=== PATIENT | male | born 1985 | race Caucasian/White ===

== ENCOUNTER 2018-05-28 18:28 | Day surgery (SDC) | payer MEDICARE, MEDICAID, SELFPAY ==
[2018-05-28] VITALS (28 sets, daily range): BP systolic 112–138; BP diastolic 64–100; PULSE 75–115; RESP 18–82; TEMP 36–37.4; O2SAT 88–99
--- NOTE | 2018-05-28 18:39 | DI.RAD_ITS ---
SYMPTOM/DIAGNOSIS: FOREIGN BODY IN THROAT PORTABLE AP CHEST: Heart size and pulmonary vasculature are within normal limits. The lungs are clear. No effusions or pneumothoraces are identified. There is mild elevation of the left hemidiaphragm. The bones appear intact. No radiopaque foreign bodies are identified. IMPRESSION: No acute abnormality. No radiopaque foreign bodies are identified.
[2018-05-28] MEDS: Normal Saline 1,000 ML 1000 ML IV (18:58)
[2018-05-28 19:02] LABS: Abs Immature Grans 0.03 k/cumm (0.0-0.09); HCT 43.3 % (40.0-50.0); HGB 14.7 g/dL (13.5-17.5); Mean Corp. HGB Concentration 33.9 g/dL (32.0-36.0); Mean Corpuscular Hemoglobin 30.8 pg (27.0-33.0); Mean Corpuscular Volume 90.8 fL (80-95); Mean Platelet Volume 10.2 fL (8.0-11.0); Platelet Count 468 x1000/uL (130-400); RBC 4.77 m/cumm (4.50-6.00); RBC Distribution Width 14.9 % (11.8-14.1); White Blood Cell Count 15.97 k/cumm (4.4-10.8)
[2018-05-28 19:13] LABS: ALT 25 U/L (12-78); AST 22 U/L (15-37); Albumin 3.7 g/dL (3.4-5.0); Alkaline Phosphatase 88 U/L (46-116); Anion Gap 9.1 mmol/L (3-11); BUN 12 mg/dL (7-18); Bilirubin, Total 1.2 mg/dL (0.2-1.0); CO2 25.9 mmol/L (21.0-32.0); CREATININE 1.03 mg/dL (0.70-1.30); Calcium 8.9 mg/dL (8.5-10.1); Chloride 102 mmol/L (98-107); Glucose 133 mg/dL (70-100); Potassium 3.4 mmol/L (3.5-5.1); Sodium 137 mmol/L (136-145); Total Protein 7.7 g/dL (6.4-8.2)
[2018-05-28 19:22] LABS: Absolute Neutrophil Count 6.55 k/cumm (1.2-6.7)
[2018-05-28 19:23] LABS: Absolute Eosinophil Count 0.16 k/cumm (0.0-0.7); Absolute Lymphocyte Count 8.14 k/cumm (1.2-3.4); Absolute Monocyte Count 1.12 k/cumm (0.11-0.7); Atypical Lymphocytes % 9; Diff Comment Manual Differential; RBC Morphology Normal
--- NOTE | 2018-05-28 19:40 | DI.VRAD_ITS ---
EXAM: XR Chest, 1 View EXAM DATE/TIME: 05/28/2018 6:40 PM CLINICAL HISTORY: 32 years old, male; Signs and symptoms; Other: Fb in throat TECHNIQUE: XR of the chest, 1 view. Portable exam. COMPARISON: No relevant prior studies available. FINDINGS: Lungs: Mild elevation left hemidiaphragm. Pleural space: Unremarkable. No pleural effusion. No pneumothorax. Heart/Mediastinum: Unremarkable. No cardiomegaly. Bones/joints: Unremarkable. IMPRESSION: No radiopaque foreign body seen in the chest. COMMENT: Preliminary interpretation is based on receipt of 1 image(s). A final report will be issued subsequently. Dictated and Authenticated by: Audrey Correa MD. Ordering:DONELL POZO MD
--- NOTE | 2018-05-28 20:22 | ED.GENADUL_ITS ---
Discharge Plan Disposition Patient Disposition: [facility] INPATIENT Condition: Stable Discharge Details Chief Complaint: ThroatFB Clinical Impression: Esophageal foreign body Reason For Visit: FB in throat Primary Care Provider: José Miguel Flores ED Provider: James Faria Home Meds and New Rx's Prescriptions: No Action sertraline [Zoloft] 50 MG tablet 50 mg PO DAILY Qty: 30 RF: 11 cetirizine [Zyrtec] 10 MG tablet 10 mg PO DAILY Qty: 90 RF: 3 risperidone [Risperdal] 0.25 MG tablet 0.25 mg PO BID Qty: 60 RF: 5 clonazepam 1 MG tablet 1 mg PO bid prn Qty: 60 RF: 5 mupirocin 22 GM ointment 1 applic Topical BID PRN10 Days Qty: 22 RF: 2 epinephrine 0.3 MG/SYR auto-injector 0.3 mg IJ DIRECTED PRN (Reason: Anaphylaxis) Qty: 2 RF: 0 Medical Decision Making This is a pleasant 32-year-old male who presents for evaluation of esophageal foreign body. Patient states that he was eating a sausage 3 hours prior to arrival when he felt it get stuck in his throat. Since then he has been unable to get the sensation to go away, as well as being unable to eat anything and having notable difficulty drinking things. On initial assessment the patient demonstrated notable anxiety, and extremely cloister his mood and disposition. He is difficult to talk with, would not actively answer questions. He has a history of anxiety and a closed off personality. Mother is here though and she is helping with the assessment. Patient denies any complaints aside for the feeling of an esophageal foreign body. We did try to give him water and he had significant coughing and sputtering after this. Was able to control his secretions well. No evidence of oral pharyngeal compromise in the posterior oropharynx, no evidence of tonsillar swelling. We did give the patient glucagon, as well as small amount of soda and he had no improvement of his symptoms or resolution of his symptoms. We did contact Dr. Beltran discussed the case with him, he came and evaluated the patient and agreed with the need for EGD for potential foreign body removal. Chest x-ray shows no evidence of acute foreign body in the lungs. Patient will be sent to the ER for endoscopy. I have extensively reviewed the treatment plan with the patient. I have addressed all patient concerns at this time. I have also discussed the plan with the admitting physician and they agree with the current assessment and plan and have agreed to assume responsibility for the patient. All parties demonstrate verbal understanding and agreement with our assessment and plan at this time. COMPARISON: No relevant prior studies available. FINDINGS: Lungs: Mild elevation left hemidiaphragm. Pleural space: Unremarkable. No pleural effusion. No pneumothorax. Heart/Mediastinum: Unremarkable. No cardiomegaly. Bones/joints: Unremarkable. IMPRESSION: No radiopaque foreign body seen in the chest. HPI General Date/Time Provider Initiated Documentation: 05/28/18 18:38 . HPI Narrative: This is a 32-year-old male with a past medical history of severe anxiety, bipolar with difficulty speaking, who presents today for evaluation of foreign body throat. Patient states that he was eating a sausage roughly 3 hours ago when he felt like it got stuck in the back left side of his throat. Patient has been unable to eat or drink since then. He has tried drinking some earlier however he immediately coughed and spit this up. Patient denies any chest pain, headache, fever or chills. He denies any hematemesis. Patient has no other complaints at this time. At this time he denies any surgeries. He is a poor historian and does not talk much. Related Data Home Medications Medication Instructions Recorded Confirmed epinephrine 0.3 mg IJ DIRECTED PRN #2 kit 04/20/15 06/30/17 sertraline [Zoloft] 50 mg PO DAILY #30 tab-cap 07/13/17 05/28/18 cetirizine [Zyrtec] 10 mg PO DAILY #90 tab-cap 08/11/17 05/28/18 clonazepam 1 mg PO bid prn #60 tab-cap 02/03/18 05/28/18 mupirocin 1 applic TOPICAL BID PRN 10 Days 02/03/18 #22 gm risperidone [Risperdal] 0.25 mg PO BID #60 tab-cap 02/03/18 05/28/18 Previous Rx's Medication Instructions Recorded epinephrine 0.3 mg IJ DIRECTED PRN #2 kit 04/20/15 sertraline [Zoloft] 50 mg PO DAILY #30 tab-cap 07/13/17 cetirizine [Zyrtec] 10 mg PO DAILY #90 tab-cap 08/11/17 clonazepam 1 mg PO bid prn #60 tab-cap 02/03/18 risperidone [Risperdal] 0.25 mg PO BID #60 tab-cap 02/03/18 Allergies Allergy/AdvReac Type Severity Reaction Status Date / Time bacitracin Allergy Unverified 05/28/18 19:26 beer Allergy Severe Anaphylaxsi Uncoded 05/28/18 19:26 s unknown anphalyxis Allergy Severe Anaphylaxsi Uncoded 05/28/18 19:26 s General Stated Complaint: ThroatFB CONSTANCE: 2 Review of Systems Review of Systems All systems reviewed & are unremarkable except as noted in HPI and below PFSH Social History Smoking/Tobacco Use Status: Never Social History Smoking/Tobacco Use Status: Never Exam Narrative Exam Narrative: 1.Const: Well-nourished, Well-developed, appearing stated age 2.Eyes: PERRL, no conjunctival injection, and symmetrical lids. 3.ENT: Atraumatic external nose and ears. Moist MM. Neck: Symmetric, trachea midline, No thyromegaly. No swelling of the neck. Trachea is nontender. Patient has difficulty swallowing, but is able to control secretions at this time 4.CVS: +S1/S2, No murmurs or gallops. Peripheral pulses 2+ and equal in all extremities. Brisk capillary refill in all extremities. 5.RESP: Unlabored respiratory effort. Clear to auscultation bilaterally. No wheezes rales or rhonchi 6.GI: Soft, Nontender/Nondistended, No hepatosplenomegaly. No guarding or rebound. 7.MSK: Normocephalic/Atraumatic, Extremities w/o deformity or ttp No cyanosis or clubbing, Normal movement of all extremities 8.Skin: Warm, Dry. No rashes or lesions. 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 Sensation grossly intact, no focal neurologic deficits. 10.Psych: (AAO) x3. Appropriate mood and affect Course Vital Signs Temperature 36.6 C 05/28/18 19:03 Pulse 95 H 05/28/18 19:03 Respiratory Rate 18 05/28/18 19:03 Blood Pressure 130/77 05/28/18 19:03 Pulse Oximetry 99 05/28/18 19:03 Temperature 36.6 C 05/28/18 19:03 Temperature Source Temporal Artery Scan 05/28/18 19:03 Pulse 108 H 05/28/18 19:29 Respiratory Rate 18 05/28/18 19:03 Respiratory Effort 05/28/18 19:06 Respiratory Pattern Normal 05/28/18 18:30 Blood Pressure 138/65 05/28/18 19:29 Blood Pressure Position Sitting 05/28/18 19:03 Pulse Oximetry 96 05/28/18 19:29 Oxygen Delivery Method Room Air 05/28/18 19:29 Oxygen Flow Rate 0 05/28/18 19:29 Comment 05/28/18 19:29 Lab/Test Results Lab/Test Results: Laboratory Tests Range/Units 05/28/18 05/28/18 05/28/18 18:45 18:45 18:50 WBC (4.4-10.8) k/cumm 15.97 H RBC (4.50-6.00) m/cumm 4.77 Hgb (13.5-17.5) g/dL 14.7 Hct (40.0-50.0) % 43.3 MCV (80-95) fL 90.8 MCH (27.0-33.0) pg 30.8 MCHC (32.0-36.0) g/dL 33.9 RDW (11.8-14.1) % 14.9 H Plt Count (130-400) x1000/uL 468 H MPV (8.0-11.0) fL 10.2 Immature Gran % 0.0 Neutrophils % 41.0 Lymphocytes % 42.0 Monocytes % 7.0 Eosinophils % 1.0 Basophils % 0.0 Absolute Neutrophils (1.2-6.7) k/cumm 6.55 Band Neutrophils % 0.0 Absolute Lymphocytes (1.2-3.4) k/cumm 8.14 H Absolute Monocytes (0.11-0.7) k/cumm 1.12 H Absolute Eosinophils (0.0-0.7) k/cumm 0.16 Absolute Basophils (0.0-0.2) k/cumm 0.00 Differential Comment Manual differential Atypical Lymphocytes 9 RBC Morphology Normal Sodium (136-145) mmol/L 137 Potassium (3.5-5.1) mmol/L 3.4 L Chloride (98-107) mmol/L 102 Carbon Dioxide (21.0-32.0) mmol/L 25.9 Anion Gap (3-11) mmol/L 9.1 BUN (7-18) mg/dL 12 Creatinine (0.70-1.30) mg/dL 1.03 Estimated GFR/1.73 m2 (mL/min/1.73m2) >= 60.00 Glucose (70-100) mg/dL 133 H Calcium (8.5-10.1) mg/dL 8.9 Total Bilirubin (0.2-1.0) mg/dL 1.2 H AST (15-37) U/L 22 ALT (12-78) U/L 25 Alkaline Phosphatase (46-116) U/L 88 Total Protein (6.4-8.2) g/dL 7.7 Albumin (3.4-5.0) g/dL 3.7 Patient ABO/Rh O Positive Antibody Screen Negative
--- NOTE | 2018-05-28 20:29 | NUR.NOTE ---
pt has been speaking with Dr Beltran and his grandmother , he signed consent to have the FB removed from his throat in the OR by Dr Beltran Nursing Note:
--- NOTE | 2018-05-28 21:11 | W.PM.HP.N ---
Date of service: 05/28/18 Time of Service: 21:12 Assessment and Plan (1) Esophageal foreign body: Current visit: No Status: Acute Probable esophageal foreign body. Recommended to patient EGD with possible foreign body removal. I reviewed the procedure with Golden and his grandmother. All his questions were answered to his satisfaction. Consent was obtained to proceed with EGD. History of Present Illness Chief Complaint: Esophageal Foreign body Narrative: This is a pleasant 32-year-old male who presents for evaluation of esophageal foreign body. Patient states that he was eating a sausage 3 hours prior to arrival when he felt it get stuck in his throat. Since then he has been unable to get the sensation to go away, as well as being unable to eat anything and having notable difficulty drinking things. On initial assessment the patient demonstrated notable anxiety, and extremely cloister his mood and disposition. He is difficult to talk with, would not actively answer questions. He has a history of anxiety and a closed off personality. Mother is here though and she is helping with the assessment. Patient denies any complaints aside for the feeling of an esophageal foreign body. We did try to give him water and he had significant coughing and sputtering after this. Was able to control his secretions well. No evidence of oral pharyngeal compromise in the posterior oropharynx, no evidence of tonsillar swelling. We did give the patient glucagon, as well as small amount of soda and he had no improvement of his symptoms or resolution of his symptoms. Review of Systems Constitutional Reports system reviewed and no additional complaints, except as docu, Denies body ache(s), Denies chills, Denies malaise and Denies night sweats ENT Reports dysphagia and Reports odynophagia Gastrointestinal Reports bloating, Reports dysphagia, Reports nausea, Reports odynophagia and Reports vomiting PFSH Anxiety (Chronic) Bipolar disorder (Chronic) Medical History Anxiety (Chronic) Bipolar disorder (Chronic) Social History Smoking/Tobacco Use Status: Never alcohol intake: never substance use type: does not use Social History Smoking/Tobacco Use Status: Never alcohol intake: never substance use type: does not use Meds Home Medications Medication Instructions Recorded Confirmed Type epinephrine 0.3 mg IJ DIRECTED PRN #2 kit 04/20/15 06/30/17 Rx sertraline [Zoloft] 50 mg PO DAILY #30 tab-cap 07/13/17 05/28/18 Rx cetirizine [Zyrtec] 10 mg PO DAILY #90 tab-cap 08/11/17 05/28/18 Rx clonazepam 1 mg PO bid prn #60 tab-cap 02/03/18 05/28/18 Rx mupirocin 1 applic TOPICAL BID PRN 10 Days 02/03/18 History #22 gm risperidone [Risperdal] 0.25 mg PO BID #60 tab-cap 02/03/18 05/28/18 Rx Allergies Allergy/AdvReac Type Severity Reaction Status Date / Time bacitracin Allergy Unverified 05/28/18 19:26 beer Allergy Severe Anaphylaxsi Uncoded 05/28/18 19:26 s unknown anphalyxis Allergy Severe Anaphylaxsi Uncoded 05/28/18 19:26 s Exam Const General: healthy appearing and well developed Nutritional Appearance: well nourished and overweight Orientation: alert, awake and oriented x3 Limitations: behavioral limitations Chest Chest: normal inspection of the chest Resp Effort & Inspection: normal respiratory effort and able to speak in complete sentences Auscultation: clear to auscultation bilaterally Cardio Rate: regular rate Rhythm: regular rhythm GI Inspection: normal to inspection and non-distended Palpation: no guarding and nontender Skin General skin exam: no rashes or lesions noted and turgor normal Neuro General: moves all extremities, no focal motor deficits and CN's II-XI intact bilaterally Results Imaging Chest x-ray: image reviewed Imaging Studies: EXAM: XR Chest, 1 View EXAM DATE/TIME: 05/28/2018 6:40 PM CLINICAL HISTORY: 32 years old, male; Signs and symptoms; Other: Fb in throat TECHNIQUE: XR of the chest, 1 view. Portable exam. COMPARISON: No relevant prior studies available. FINDINGS: Lungs: Mild elevation left hemidiaphragm. Pleural space: Unremarkable. No pleural effusion. No pneumothorax. Heart/Mediastinum: Unremarkable. No cardiomegaly. Bones/joints: Unremarkable. IMPRESSION: No radiopaque foreign body seen in the chest. Labs : 05/28/18 18:45 05/28/18 18:45 Laboratory Results - last 24 hr 05/28/18 05/28/18 05/28/18 18:45 18:45 18:50 WBC 15.97 H RBC 4.77 Hgb 14.7 Hct 43.3 MCV 90.8 MCH 30.8 MCHC 33.9 RDW 14.9 H Plt Count 468 H MPV 10.2 Immature Gran % 0.0 Neutrophils % 41.0 Lymphocytes % 42.0 Monocytes % 7.0 Eosinophils % 1.0 Basophils % 0.0 Absolute Neutrophils 6.55 Band Neutrophils 0.0 Absolute Lymphocytes 8.14 H Absolute Monocytes 1.12 H Absolute Eosinophils 0.16 Absolute Basophils 0.00 Differential Comment Manual differential Atypical Lymphocytes 9 RBC Morphology Normal Sodium 137 Potassium 3.4 L Chloride 102 Carbon Dioxide 25.9 Anion Gap 9.1 BUN 12 Creatinine 1.03 Estimated GFR/1.73 m2 >= 60.00 Glucose 133 H Calcium 8.9 Total Bilirubin 1.2 H AST 22 ALT 25 Alkaline Phosphatase 88 Total Protein 7.7 Albumin 3.7 Patient ABO/Rh O Positive Antibody Screen Negative Last Vital Signs Temp 36 C L 05/28/18 21:06 Pulse 92 H 05/28/18 21:06 Resp 32 H 05/28/18 21:06 BP 112/80 05/28/18 21:06 Pulse Ox 94 L 05/28/18 21:06
[2018-05-28] MEDS: Lactated Ringers 1,000 ML 75 ML IV (21:35)
--- NOTE | 2018-05-28 22:30 | W.PM.ENDDOP ---
Date of service: 05/28/18 Time of Service: 22:30 Endoscopy Report DATE OF PROCEDURE: 05/28/18 PRE-OP DIAGNOSIS: Esophageal Foreign Body POST-OP DIAGNOSIS: other (Esophagitis) PROCEDURE: Esophagogastroduodenoscopy SURGEON: Rob Hernandez ANESTHESIA: GETA (Stephen Joe, ROLO; ASA 3E Mallampati class III) ESTIMATED BLOOD LOSS: 0 PATHOLOGY: none sent COMPLICATIONS: None DISPOSITION: floor (For afterhour discharge) INDICATIONS: This is a pleasant 32-year-old male who presents for evaluation of esophageal foreign body. Patient states that he was eating a sausage 3 hours prior to arrival when he felt it get stuck in his throat. Since then he has been unable to get the sensation to go away, as well as being unable to eat anything and having notable difficulty drinking things. On initial assessment the patient demonstrated notable anxiety, and extremely cloister his mood and disposition. He is difficult to talk with, would not actively answer questions. He has a history of anxiety and a closed off personality. Mother is here though and she is helping with the assessment. Patient denies any complaints aside for the feeling of an esophageal foreign body. We did try to give him water and he had significant coughing and sputtering after this. Was able to control his secretions well. No evidence of oral pharyngeal compromise in the posterior oropharynx, no evidence of tonsillar swelling. We did give the patient glucagon, as well as small amount of soda and he had no improvement of his symptoms or resolution of his symptoms. Recommended EGD to evaluate for esophageal foreign body, and retrieve the foreign body if it is there. I reviewed the procedure with Golden and his grandmother. All of their questions are answered to their satisfaction. No promises were given or guarantees made. Consent was obtained to proceed with EGD possible foreign body retrieval. FINDINGS: On examining the upper gastrointestinal tract from the oropharynx to the third portion of the duodenum, no evidence of an impacted esophageal foreign body was found there was a food bolus found in the fundus of the stomach and the duodenum. The fundal food bolus may have recently passed quickly after induction of anesthesia, though this is only speculative. He was noted to have significant esophagitis at the GE junction with contact friability. I did not take biopsies of the time due to the inflammatory changes from the foreign body, but this is clearly been a ongoing process. Given his history of anxiety reflux certainly be possible. PROCEDURE DESCRIPTION: The patient was brought to the procedure room. Monitoring for telemetry, end-tidal CO2, O2 saturation, blood pressure were applied. An appropriate timeout was taken reviewing the patient's identification, allergies, medications,and procedure. A bite was placed, and sedation was titrated for effect by the CRAFT COORDINATOR. An Olympus variable stiffness endoscope was advanced from the oropharynx to the third portion of the duodenum without difficulty. I was unable to enter the duodenum due to a food bolus. The scope was then withdrawn in circumferential manner from the pylorus back to the oropharynx. In performing withdrawal of the scope, the pylorus appeared grossly normal. The scope was withdrawn into the gastric antrum and retroflexed to examine the entire stomach, and no abnormalities of the gastric antrum, anterior, posterior surfaces of the stomach, lesser curvature, greater curvature, and fundus were noted. There was a food bolus noted in the gastric fundus which may have passed into the stomach after induction of anesthesia though there is no way to tell this definitively. The scope was then withdrawn to the GE junction. There is a large amount of inflammatory changes at the GE junction with contact friability of the tissue present. This appears to been a long-standing process, and most likely from reflux. I withdrew the scope through the remainder of the esophagus all which appear grossly normal. Scope was then withdrawn terminating the upper endoscopy.
--- NOTE | 2018-05-28 22:40 | ENDO_ITS ---
Date of service: 05/28/18 Time of Service: 22:30 Endoscopy Report DATE OF PROCEDURE: 05/28/18 PRE-OP DIAGNOSIS: Esophageal Foreign Body POST-OP DIAGNOSIS: other (Esophagitis) PROCEDURE: Esophagogastroduodenoscopy SURGEON: Rob Hernandez ANESTHESIA: GETA (Stephen Joe, ROLO; ASA 3E Mallampati class III) ESTIMATED BLOOD LOSS: 0 PATHOLOGY: none sent COMPLICATIONS: None DISPOSITION: floor (For afterhour discharge) INDICATIONS: This is a pleasant 32-year-old male who presents for evaluation of esophageal foreign body. Patient states that he was eating a sausage 3 hours prior to arrival when he felt it get stuck in his throat. Since then he has been unable to get the sensation to go away, as well as being unable to eat anything and having notable difficulty drinking things. On initial assessment the patient demonstrated notable anxiety, and extremely cloister his mood and disposition. He is difficult to talk with, would not actively answer questions. He has a history of anxiety and a closed off personality. Mother is here though and she is helping with the assessment. Patient denies any complaints aside for the feeling of an esophageal foreign body. We did try to give him water and he had significant coughing and sputtering after this. Was able to control his secretions well. No evidence of oral pharyngeal compromise in the posterior oropharynx, no evidence of tonsillar swelling. We did give the patient glucagon, as well as small amount of soda and he had no improvement of his symptoms or resolution of his symptoms. Recommended EGD to evaluate for esophageal foreign body, and retrieve the foreign body if it is there. I reviewed the procedure with Golden and his grandmother. All of their questions are answered to their satisfaction. No promises were given or guarantees made. Consent was obtained to proceed with EGD possible foreign body retrieval. FINDINGS: On examining the upper gastrointestinal tract from the oropharynx to the third portion of the duodenum, no evidence of an impacted esophageal foreign body was found there was a food bolus found in the fundus of the stomach and the duodenum. The fundal food bolus may have recently passed quickly after induction of anesthesia, though this is only speculative. He was noted to have significant esophagitis at the GE junction with contact friability. I did not take biopsies of the time due to the inflammatory changes from the foreign body , but this is clearly been a ongoing process. Given his history of anxiety reflux certainly be possible. PROCEDURE DESCRIPTION: The patient was brought to the procedure room. Monitoring for telemetry, end- tidal CO2, O2 saturation, blood pressure were applied. An appropriate timeout was taken reviewing the patient's identification, allergies, medications,and procedure. A bite was placed, and sedation was titrated for effect by the SAMPLE STITCHER. An Olympus variable stiffness endoscope was advanced from the oropharynx to the third portion of the duodenum without difficulty. I was unable to enter the duodenum due to a food bolus. The scope was then withdrawn in circumferential manner from the pylorus back to the oropharynx. In performing withdrawal of the scope, the pylorus appeared grossly normal. The scope was withdrawn into the gastric antrum and retroflexed to examine the entire stomach, and no abnormalities of the gastric antrum, anterior, posterior surfaces of the stomach , lesser curvature, greater curvature, and fundus were noted. There was a food bolus noted in the gastric fundus which may have passed into the stomach after induction of anesthesia though there is no way to tell this definitively. The scope was then withdrawn to the GE junction. There is a large amount of inflammatory changes at the GE junction with contact friability of the tissue present. This appears to been a long-standing process, and most likely from reflux. I withdrew the scope through the remainder of the esophagus all which appear grossly normal. Scope was then withdrawn terminating the upper endoscopy.
--- NOTE | 2018-05-28 22:46 | DSE_ITS ---
Date of service: 05/28/18 Time of Service: 22:40 DS: Diagnosis Discharge Diagnosis (1) Esophageal foreign body: Status: Resolved Asessment and Plan: EGD performed: Endoscopy Report DATE OF PROCEDURE: 05/28/18 PRE-OP DIAGNOSIS: Esophageal Foreign Body POST-OP DIAGNOSIS: other (Esophagitis) PROCEDURE: Esophagogastroduodenoscopy SURGEON: Rob Hernandez ANESTHESIA: GETA (Stephen Joe, CRATING AND MOVING ESTIMATOR; ASA 3E Mallampati class III) ESTIMATED BLOOD LOSS: 0 PATHOLOGY: none sent COMPLICATIONS: None DISPOSITION: floor (For afterhour discharge) INDICATIONS: This is a pleasant 32-year-old male who presents for evaluation of esophageal foreign body. Patient states that he was eating a sausage 3 hours prior to arrival when he felt it get stuck in his throat. Since then he has been unable to get the sensation to go away, as well as being unable to eat anything and having notable difficulty drinking things. On initial assessment the patient demonstrated notable anxiety, and extremely cloister his mood and disposition. He is difficult to talk with, would not actively answer questions. He has a history of anxiety and a closed off personality. Mother is here though and she is helping with the assessment. Patient denies any complaints aside for the feeling of an esophageal foreign body. We did try to give him water and he had significant coughing and sputtering after this. Was able to control his secretions well. No evidence of oral pharyngeal compromise in the posterior oropharynx, no evidence of tonsillar swelling. We did give the patient glucagon, as well as small amount of soda and he had no improvement of his symptoms or resolution of his symptoms. Recommended EGD to evaluate for esophageal foreign body, and retrieve the foreign body if it is there. I reviewed the procedure with Golden and his grandmother. All of their questions are answered to their satisfaction. No promises were given or guarantees made. Consent was obtained to proceed with EGD possible foreign body retrieval. FINDINGS: On examining the upper gastrointestinal tract from the oropharynx to the third portion of the duodenum, no evidence of an impacted esophageal foreign body was found there was a food bolus found in the fundus of the stomach and the duodenum. The fundal food bolus may have recently passed quickly after induction of anesthesia, though this is only speculative. He was noted to have significant esophagitis at the GE junction with contact friability. I did not take biopsies of the time due to the inflammatory changes from the foreign body , but this is clearly been a ongoing process. Given his history of anxiety reflux certainly be possible. PROCEDURE DESCRIPTION: The patient was brought to the procedure room. Monitoring for telemetry, end- tidal CO2, O2 saturation, blood pressure were applied. An appropriate timeout was taken reviewing the patient's identification, allergies, medications,and procedure. A bite was placed, and sedation was titrated for effect by the CRATING AND MOVING ESTIMATOR. An Olympus variable stiffness endoscope was advanced from the oropharynx to the third portion of the duodenum without difficulty. I was unable to enter the duodenum due to a food bolus. The scope was then withdrawn in circumferential manner from the pylorus back to the oropharynx. In performing withdrawal of the scope, the pylorus appeared grossly normal. The scope was withdrawn into the gastric antrum and retroflexed to examine the entire stomach, and no abnormalities of the gastric antrum, anterior, posterior surfaces of the stomach , lesser curvature, greater curvature, and fundus were noted. There was a food bolus noted in the gastric fundus which may have passed into the stomach after induction of anesthesia though there is no way to tell this definitively. The scope was then withdrawn to the GE junction. There is a large amount of inflammatory changes at the GE junction with contact friability of the tissue present. This appears to been a long-standing process, and most likely from reflux. I withdrew the scope through the remainder of the esophagus all which appear grossly normal. Scope was then withdrawn terminating the upper endoscopy. (2) Esophagitis determined by endoscopy: Status: Acute Asessment and Plan: Started on omeprazole, repeat EGD in 8-12 weeks to reassess esophagitis. Discharge Plan Disposition Patient Disposition: HOME Condition: Stable Discharge Details Reason For Visit: FB in throat Attending Provider: Rob Hernandez Primary Care Provider: José Miguel Flores Hospital Course Hospital Course: Procedures: Esophagogastroduodenoscopy HPI: This is a pleasant 32-year-old male who presents for evaluation of esophageal foreign body. Patient states that he was eating a sausage 3 hours prior to arrival when he felt it get stuck in his throat. Since then he has been unable to get the sensation to go away, as well as being unable to eat anything and having notable difficulty drinking things. On initial assessment the patient demonstrated notable anxiety, and extremely cloister his mood and disposition. He is difficult to talk with, would not actively answer questions. He has a history of anxiety and a closed off personality. Mother is here though and she is helping with the assessment. Patient denies any complaints aside for the feeling of an esophageal foreign body. We did try to give him water and he had significant coughing and sputtering after this. Was able to control his secretions well. No evidence of oral pharyngeal compromise in the posterior oropharynx, no evidence of tonsillar swelling. We did give the patient glucagon, as well as small amount of soda and he had no improvement of his symptoms or resolution of his symptoms. Hospital Course: Patient underwent EGD without complications, please see separate procedure note for full details. He was transferred to the floor for postprocedure discharge. He was afebrile tolerating clear liquids, and ambulating at baseline. Will recommend he continue omeprazole daily, make sure he chews his food adequately. He should stay on a soft diet for several days until his throat starts to feel better. Home Meds and New Rx's Prescriptions: New omeprazole 40 mg capsule,delayed release(DR/EC) 40 mg PO DAILY Qty: 30 RF: 6 Continue sertraline [Zoloft] 50 MG tablet 50 mg PO DAILY Qty: 30 RF: 11 cetirizine [Zyrtec] 10 MG tablet 10 mg PO DAILY Qty: 90 RF: 3 risperidone [Risperdal] 0.25 MG tablet 0.25 mg PO BID Qty: 60 RF: 5 clonazepam 1 MG tablet 1 mg PO bid prn Qty: 60 RF: 5 mupirocin 22 GM ointment 1 applic Topical BID PRN10 Days Qty: 22 RF: 2 epinephrine 0.3 MG/SYR auto-injector 0.3 mg IJ DIRECTED PRN (Reason: Anaphylaxis) Qty: 2 RF: 0 Discharge Instructions Instructions: Soft Diet (GEN), Upper Endoscopy (DC), Esophagitis (GEN) Stand Alone Forms: Nursing Discharge Form Referrals: José Miguel Flores [Primary Care Provider] - (Follow in a week for post ER visit, call to make an appointment) Activity:: Activity as Tolerated Remove Dressings/Wound Care:: 24 hours Shower/Bathe:: 24 hours Activity:: Activity as Tolerated Equipment/Supplies:: No Equipment Needed Diet:: soft diet Discharge Orders Discharge Orders: Discharge Order (Routine); Ordered 05/28/18 Ordered By: Rob Hernandez DS: Summary Status at Discharge Cognitive/behavioral status at discharge: Severe Anxiety at baseline Functional status at discharge: independent ambulation Overall status at discharge: patient is back to baseline Time Spent with Patient Less than 30 minutes Exam Chest Chest: normal inspection of the chest Resp Effort & Inspection: normal respiratory effort and able to speak in complete sentences Auscultation: clear to auscultation bilaterally Cardio Jugular venous pressure: no JVD Rate: tachycardic Rhythm: regular rhythm Heart Sounds: S1 normal GI Inspection: normal to inspection Palpation: soft, no guarding and nontender DS: Data Vitals/I&O Vitals and I&O: Vital Signs Temperature 36.7 C 05/28/18 22:02 Temperature Source Temporal Artery Scan 05/28/18 21:06 Pulse 111 H 05/28/18 22:20 Pulse 98 H 05/28/18 20:20 Respiratory Rate 80 H 05/28/18 22:20 Respiratory Effort 05/28/18 19:06 Respiratory Pattern Normal 05/28/18 18:30 Blood Pressure 113/100 H 05/28/18 22:20 Blood Pressure Mean 79 05/28/18 20:16 Blood Pressure Position Sitting 05/28/18 19:03 Pulse Oximetry 94 L 05/28/18 22:20 Oxygen Delivery Method Room Air 05/28/18 22:20 Oxygen Flow Rate 0 05/28/18 21:06 Comment 05/28/18 21:06 Intake & Output 05/28/18 05/28/18 05/29/18 06:59 18:59 06:59 Intake Total 1000 / 1000 Balance 1000 / 1000 Weight 136 kg Intake: IV 1000 / 1000 Other: Emesis Description None Labs on day of discharge: Labs from last 24 hours 05/28/18 05/28/18 05/28/18 18:50 18:45 18:45 WBC 15.97 H RBC 4.77 Hgb 14.7 Hct 43.3 MCV 90.8 MCH 30.8 MCHC 33.9 RDW 14.9 H Plt Count 468 H MPV 10.2 Immature Gran % 0.0 Neutrophils % 41.0 Lymphocytes % 42.0 Monocytes % 7.0 Eosinophils % 1.0 Basophils % 0.0 Absolute Neutrophils 6.55 Band Neutrophils 0.0 Absolute Lymphocytes 8.14 H Absolute Monocytes 1.12 H Absolute Eosinophils 0.16 Absolute Basophils 0.00 Differential Comment Manual differential Atypical Lymphocytes 9 RBC Morphology Normal Sodium 137 Potassium 3.4 L Chloride 102 Carbon Dioxide 25.9 Anion Gap 9.1 BUN 12 Creatinine 1.03 Estimated GFR/1.73 m2 >= 60.00 Glucose 133 H Calcium 8.9 Total Bilirubin 1.2 H AST 22 ALT 25 Alkaline Phosphatase 88 Total Protein 7.7 Albumin 3.7 Patient ABO/Rh O Positive Antibody Screen Negative Imaging Chest x-ray: Lab and Radiology Reports: EXAM: XR Chest, 1 View EXAM DATE/TIME: 05/28/2018 6:40 PM CLINICAL HISTORY: 32 years old, male; Signs and symptoms; Other: Fb in throat TECHNIQUE: XR of the chest, 1 view. Portable exam. COMPARISON: No relevant prior studies available. FINDINGS: Lungs: Mild elevation left hemidiaphragm. Pleural space: Unremarkable. No pleural effusion. No pneumothorax. Heart/Mediastinum: Unremarkable. No cardiomegaly. Bones/joints: Unremarkable. IMPRESSION: No radiopaque foreign body seen in the ches [facility] Anxiety (Chronic) Bipolar disorder (Chronic) Medical History Anxiety (Chronic) Bipolar disorder (Chronic) Social History Smoking/Tobacco Use Status: Never alcohol intake: never substance use type: does not use Social History Smoking/Tobacco Use Status: Never alcohol intake: never substance use type: does not use
[2018-05-28] MEDS: Pantoprazole 40 MG VIAL IVP (23:06)
[2018-05-28] MEDS: Normal Saline Flush 10 ML SYR (23:07)
[2018-05-28] MEDS: ACETAMINOPHEN 1,000 MG/100 ML BTL 400 MG IVPB (23:10)
--- NOTE | 2018-05-29 00:17 | NUR.NOTE ---
Nursing Note: Patient arrived to the floor via stretcher at 2242 on 05/28/18 and admitted to room 208 to recover from upper endoscopy and be discharged to home. Per Stephen Olson RN anesthesia and Tasneem Villatoro RN this patient has high anxiety and that it was OK for him to have a respiratory rate in the 80s. Stephen further stated that his respiratory rate would return to normal once he was discharged and the patient was able to calm down. Patient stated that his throat hurt, an order for IV Tylenol was obtained and given. The patient stated that he felt some relief. Patient was able to drink water and void. Respiratory rate decreased to 46 prior to being discharged
== END 2018-05-28 23:51 | disposition home or self-care (01) ==
LOC: ER 21:35 → SUR 22:24 → ER 06-12 11:25 → MS 06-12 11:25
PROVIDERS: Emergency Provider Student in an Organized Health Care Education/Training Program; PCP Family Medicine; Visit Provider Surgery
PROC: 0DC58ZZ Extirpation of Matter from Esophagus, Via Natural or Artificial Opening Endoscopic (ICD-10-PCS; CPT 43215; principal; 2018-05-28 20:55)
DX: T18.128A Food in esophagus causing other injury, initial encounter (principal); K20.9 Esophagitis, unspecified; F41.9 Anxiety disorder, unspecified
CPT/HCPCS: 43235; 36415; 80053; 86850; 86900; 86901; 96361; 96374; 99217; 99223; 99283; 99285; 71045; 85025; 99284; J0131; J1610; J2250

== ENCOUNTER 2018-10-01 13:15 | Emergency (ER) | payer MEDICARE, MEDICAID, SELFPAY ==
[2018-10-01] VITALS (15 sets, daily range): BP systolic 84–132; BP diastolic 29–79; PULSE 79–102; RESP 19–60; TEMP 36.6; O2SAT 91–99
--- NOTE | 2018-10-01 13:24 | NUR.NOTE ---
pt presents to ED stating my chest hurts my chest hurts my chest hursts pt visibly shaking pt refuses to remove shirt. refuses ECG and will not remove arms from chest
--- NOTE | 2018-10-01 13:39 | ED.GENADUL_ITS ---
Discharge Plan Disposition Patient Disposition: HOME Condition: Improving Discharge Details Chief Complaint: Chest Pain Clinical Impression: Acute bronchitis Primary Care Provider: José Miguel Flores ED Provider: Zbigniew Castaneda Home Meds and New Rx's Prescriptions: New benzonatate [Tessalon Perles] 100 mg capsule 100 mg PO TID PRN (Reason: cough) Qty: 10 RF: 0 azithromycin 250 mg tablet See Rx Instructions .ROUTE .COMPLEX Qty: 6 RF: 0 Continued mupirocin 22 GM ointment 1 applic Topical BID PRN10 Days Qty: 22 RF: 2 sertraline [Zoloft] 50 mg tablet 50 mg PO DAILY Qty: 30 RF: 11 cetirizine [Zyrtec] 10 mg tablet 10 mg PO DAILY Qty: 90 RF: 3 clonazepam 1 mg tablet 1 mg PO BID PRN (Reason: anxiety) Qty: 60 RF: 5 epinephrine 0.3 MG/SYR auto-injector 0.3 mg IJ DIRECTED PRN (Reason: Anaphylaxis) Qty: 2 RF: 0 omeprazole 40 mg capsule,delayed release(DR/EC) 40 mg PO DAILY Qty: 30 RF: 6 omeprazole 40 mg capsule,delayed release(DR/EC) 40 mg PO DAILY Qty: 30 RF: 6 Discharge Instructions Instructions: Acute Bronchitis (ED) Additional Instructions: Please take antibiotics as prescribed. May use the prescribed Tessalon as needed for cough. Continue your regular medications. Your potassium level was slightly low for which you were given supplementation and you may liberalize potassium in the diet through increase food such as bananas, strawberries, tree nuts such as cashews. Return for any acute concern. Home to rest. Please follow-up with Dr. Bourgeois for recheck if not improving in 5 days time Medical Decision Making 32-year-old male with a history of severe anxiety presents with 3 days of constant substernal chest discomfort. It is associated with a cough and sputum production. He also has a history of GERD, intermittently compliant with his omeprazole. He is afebrile, well-appearing, but severely anxious. He is placed on cardiac rehab nurse and screening EKG is obtained. INitially refractive to triage efforts. He is offered anxiolytic which he accepts with some improvement. BLood pressure subsequently rechecked at 130/60. Patient's father with whom he lives presents to the emergency department, states that this is normal behavior for Mr. Pichardo and does have significant phobias and is on disability. Referred for laboratory testing, EKG, and chest x-ray Labs reveal an elevated white blood cell of 12. Mild hypokalemia of 3.0. This was supplemented in the emergency department. Chest Xray is unremarkable for acute process. Patient stable and improved. We will place on a course of antibiotics to cover atypical infections. He is given antitussive. He will follow-up with primary care for recheck. Lab Data Lab results reviewed: Yes I reviewed the patient's lab results. Laboratory Results - last 24 hr 10/01/18 10/01/18 13:50 13:50 WBC 12.40 H RBC 4.58 Hgb 14.0 Hct 41.0 MCV 89.5 MCH 30.6 MCHC 34.1 RDW 14.9 H Plt Count 435 H MPV 9.6 Immature Gran % 0.0 Neutrophils % 39.0 Lymphocytes % 40.0 Atypical Lymphs % 9 Monocytes % 11.0 Eosinophils % 1.0 Basophils % 0.0 Absolute Neutrophils 4.84 Absolute Lymphocytes 6.08 H Absolute Monocytes 1.36 H Absolute Eosinophils 0.12 Absolute Basophils 0.00 Differential Comment Manual differential RBC Morphology Normal Sodium 136 Potassium 3.0 L Chloride 99 Carbon Dioxide 26.6 Anion Gap 10.4 BUN 13 Creatinine 1.05 Estimated GFR/1.73 m2 >= 60.00 Glucose 105 H Calcium 9.0 Magnesium 1.7 L Total Bilirubin 1.5 H AST 23 ALT 22 Alkaline Phosphatase 73 Troponin I < 0.02 Total Protein 7.5 Albumin 3.7 ECG Data Attestation: I personally reviewed and interpreted this ECG (s) as follows: Interpretation: Normal sinus rhythm with a rate of 94, the QRS is narrow, there is no ST segment elevation present HPI General Mode of arrival: ambulatory . Date/Time Provider Initiated Documentation: 10/01/18 13:17 . Limitations to Documentation: no limitations . Information obtained by: patient . History of Present Illness 32 year old M presents to the emergency department with the chief complaint of Central chest pain for 3 days time. Extremely anxious, described as mild, Quality is described as dull, and is localized to the chest. Patient reports no radiation. Patient started experiencing this day(s) and it has been constant. No relieving factors improve symptom(s), No exacerbating factors reported . Patient notes no other symptoms. and other (Severe anxiety); denies chest pain and shortness of breath. Patient did receive the following treatments prior to arrival, none Related Data Home Medications Medication Instructions Recorded Confirmed epinephrine 0.3 mg IJ DIRECTED PRN #2 kit 04/20/15 06/30/17 mupirocin 1 applic TOPICAL BID PRN 10 Days 02/03/18 #22 gm omeprazole 40 mg PO DAILY #30 cap 05/28/18 omeprazole 40 mg PO DAILY #30 cap 05/29/18 sertraline 50 mg tablet 50 mg PO DAILY #30 tab-cap 07/15/18 cetirizine 10 mg tablet 10 mg PO DAILY #90 tab-cap 08/17/18 clonazepam 1 mg tablet 1 mg PO BID PRN #60 tab 08/17/18 azithromycin See Rx Instructions .ROUTE 10/01/18 .COMPLEX #6 tab benzonatate [Tessalon Perles] 100 mg PO TID PRN #10 cap 10/01/18 Previous Rx's Medication Instructions Recorded epinephrine 0.3 mg IJ DIRECTED PRN #2 kit 04/20/15 omeprazole 40 mg PO DAILY #30 cap 05/28/18 omeprazole 40 mg PO DAILY #30 cap 05/29/18 sertraline 50 mg tablet 50 mg PO DAILY #30 tab-cap 07/15/18 cetirizine 10 mg tablet 10 mg PO DAILY #90 tab-cap 08/17/18 clonazepam 1 mg tablet 1 mg PO BID PRN #60 tab 08/17/18 azithromycin See Rx Instructions .ROUTE 10/01/18 .COMPLEX #6 tab benzonatate [Tessalon Perles] 100 mg PO TID PRN #10 cap 10/01/18 Allergies Allergy/AdvReac Type Severity Reaction Status Date / Time bacitracin Allergy Unverified 05/28/18 19:26 beer Allergy Severe Anaphylaxsi Uncoded 05/28/18 19:26 s unknown anphalyxis Allergy Severe Anaphylaxsi Uncoded 05/28/18 19:26 s General Stated Complaint: Chest Pain CONSTANCE: 3 Review of Systems Review of Systems No fever. No shortness of breath. No leg pain or swelling 6 systems reviewed and other was negative [facility] Medical History Anxiety (Chronic) Bipolar disorder (Chronic) Surgical History H/O hernia repair (Chronic) History of splenectomy (Resolved) Social History Smoking/Tobacco Use Status: Never Alcohol Intake: never Drug use: Never Substance use type: does not use Do you feel safe at home: Yes Do you feel safe in your relationship?: Yes Exam Narrative Exam Narrative: GEN: awake, alert, oriented 3. Pleasant, well groomed, a. HEAD: Normocephalic, atraumatic ENT: Mucous membranes moist, oropharynx unremarkable, External ear exam unremarkable EYES: PERRL, EOMI NECK: Full ROM, no TITA, no menigismus CHEST/RESP: Nontender, clear to auscultation bilateral, no wheeze/rhonchi/rales CARDIOVASCULAR: RRR, no murmur, rub mao. 2+ Rad pulse bilateral ABDOMEN: Soft, nontender, no mass. +Bowel sounds EXT: Full ROM, no edema, no rash Neuro: Grossly normal neurologic exam, conversant, interactive. Psych: Speech fluent, anxious, poor eye contact Course Vital Signs Temperature 36.6 C 10/01/18 13:26 Pulse 81 10/01/18 13:26 Respiratory Rate 20 10/01/18 13:26 Pulse Oximetry 96 10/01/18 13:26 Temperature 36.6 C 10/01/18 13:26 Temperature Source Skin 10/01/18 13:26 Pulse 81 10/01/18 13:26 Respiratory Rate 20 10/01/18 13:26 Blood Pressure Position Sitting 10/01/18 13:26 Pulse Oximetry 96 10/01/18 13:26 Oxygen Delivery Method Room Air 10/01/18 13:26 Oxygen Flow Rate 0 10/01/18 13:26 Pain Level 0 10/01/18 13:26 Comment 10/01/18 13:26
[2018-10-01] MEDS: LORazepam 2 MG/ML VIAL 1 MG IVP (13:45)
[2018-10-01 14:03] LABS: Abs Immature Grans 0.03 k/cumm (0.0-0.09); Mean Corp. HGB Concentration 34.1 g/dL (32.0-36.0); Mean Corpuscular Hemoglobin 30.6 pg (27.0-33.0); Mean Corpuscular Volume 89.5 fL (80-95); Mean Platelet Volume 9.6 fL (8.0-11.0); Platelet Count 435 x1000/uL (130-400); RBC 4.58 m/cumm (4.50-6.00); RBC Distribution Width 14.9 % (11.8-14.1)
--- NOTE | 2018-10-01 14:16 | DI.RAD_ITS ---
SYMPTOM/DIAGNOSIS: COUGH, CHEST PAIN FRONTAL AND LATERAL CHEST: Comparison is made with 05/28/18. The heart is normal in size. The lungs are clear. The mediastinal structures and pleura appear intact. CONCLUSION: Normal chest.
[2018-10-01 14:19] LABS: ALT 22 U/L (12-78); AST 23 U/L (15-37); Albumin 3.7 g/dL (3.4-5.0); Alkaline Phosphatase 73 U/L (46-116); Anion Gap 10.4 mmol/L (3-11); BUN 13 mg/dL (7-18); Bilirubin, Total 1.5 mg/dL (0.2-1.0); CO2 26.6 mmol/L (21.0-32.0); CREATININE 1.05 mg/dL (0.70-1.30); Chloride 99 mmol/L (98-107); Glucose 105 mg/dL (70-100); Magnesium 1.7 mg/dL (1.8-2.4); Sodium 136 mmol/L (136-145); Total Protein 7.5 g/dL (6.4-8.2)
[2018-10-01 14:23] LABS: Absolute Lymphocyte Count 6.08 k/cumm (1.2-3.4); Absolute Monocyte Count 1.36 k/cumm (0.11-0.7); Absolute Neutrophil Count 4.84 k/cumm (1.2-6.7); Atypical Lymphocytes % 9; Troponin I < 0.02 ng/mL (0.00-0.06)
[2018-10-01 14:24] LABS: Absolute Eosinophil Count 0.12 k/cumm (0.0-0.7); Diff Comment Manual Differential; RBC Morphology Normal
--- NOTE | 2018-10-01 14:35 | DI.VRAD_ITS ---
EXAM: XR Chest, 2 Views EXAM DATE/TIME: 10/01/2018 2:17 PM CLINICAL HISTORY: 32 years old, male; Signs and symptoms; Cough; Patient HX: Cough and chest pain TECHNIQUE: Imaging protocol: XR of the chest, 2 views. COMPARISON: SC XR PORTABLE CHEST AP 05/28/2018 7:01 PM FINDINGS: The cardiomediastinal silhouette and pulmonary vasculature are within normal limits. The lungs are clear. No pleural effusion or pneumothorax is identified. IMPRESSION: No acute process. Dictated and Authenticated by: Davon Shipley MD. Ordering:RICHARD Coy MD
[2018-10-01] MEDS: Potassium Chloride 20 MEQ TABCR PO (15:01)
== END 2018-10-01 15:18 | disposition home or self-care (01) ==
LOC: ER 14:42
PROVIDERS: Emergency Provider Emergency Medicine; PCP Family Medicine
DX: J20.9 Acute bronchitis, unspecified (principal); E87.6 Hypokalemia
CPT/HCPCS: 36415; 80053; 93005; 96374; 99285; 71046; 83735; 84484; 85025; 93010; J2060

== ENCOUNTER 2019-02-25 17:06 | Emergency (ER) | payer MEDICARE, MEDICAID, SELFPAY ==
[2019-02-25] VITALS (84 sets, daily range): BP systolic 91–154; BP diastolic 36–73; PULSE 69–127; RESP 11–44; TEMP 36.7; O2SAT 86–96
--- NOTE | 2019-02-25 17:29 | NUR.NOTE ---
Nursing Note: pt appears to be very anxious. PO ativan given per MD veras
[2019-02-25] MEDS: LORazepam 1 MG TAB (17:32)
--- NOTE | 2019-02-25 17:36 | NUR.NOTE ---
Nursing Note: pt sister requesting to see patient. pt unsure of whether or not he wants sister to come it. with patients permission. pt sister is told that he wants anxiety medication to take effect prior to having visitors.
[2019-02-25] MEDS: Normal Saline 1,000 ML 1000 ML IV (18:06)
[2019-02-25] MEDS: HYDROmorphone 2 MG/ML VIAL 1 MG IVP (18:08)
[2019-02-25] MEDS: Terbutaline 1 MG/ML VIAL 0.25 MG SC (18:10)
[2019-02-25 18:20] LABS: Abs Immature Grans 0.04 k/cumm (0.0-0.09); Absolute Eosinophil Count 0.19 k/cumm (0.0-0.7); Absolute Lymphocyte Count 3.76 k/cumm (1.2-3.4); Absolute Monocyte Count 1.11 k/cumm (0.11-0.7); Absolute Neutrophil Count 8.76 k/cumm (1.2-6.7); Basophils % 0.1; Eosinophils % 1.4; HCT 44.3 % (40.0-50.0); HGB 15.1 g/dL (13.5-17.5); Immature Grans % 0.3; Lymphocytes % 27.1; Mean Corp. HGB Concentration 34.1 g/dL (32.0-36.0); Mean Corpuscular Hemoglobin 30.6 pg (27.0-33.0); Mean Corpuscular Volume 89.7 fL (80-95); Neutrophils % 63.1; Platelet Count 460 x1000/uL (130-400); RBC 4.94 m/cumm (4.50-6.00); RBC Distribution Width 14.9 % (11.8-14.1); White Blood Cell Count 13.88 k/cumm (4.4-10.8)
[2019-02-25 18:27] LABS: Absolute Basophil Count 0.01 k/cumm (0.0-0.2)
[2019-02-25 18:34] LABS: ALT 25 U/L (16-63); AST 24 U/L (15-37); Alkaline Phosphatase 82 U/L (46-116); Anion Gap 11.7 mmol/L (3-11); BUN 10 mg/dL (7-18); Bilirubin, Total 1.7 mg/dL (0.2-1.0); CO2 25.3 mmol/L (21.0-32.0); CREATININE 1.06 mg/dL (0.70-1.30); Chloride 102 mmol/L (98-107); Glucose 107 mg/dL (70-100); Potassium 3.4 mmol/L (3.5-5.1); Sodium 139 mmol/L (136-145)
--- NOTE | 2019-02-25 18:57 | W.ED.GENAD ---
Discharge Plan Disposition Patient Disposition: [facility] Discharge Details Chief Complaint: GenMedical Clinical Impression: Priapism Primary Care Provider: José Miguel Flores ED Provider: Ai Hill Home Meds and New Rx's Prescriptions: No Action mupirocin 22 GM ointment 1 applic Topical BID PRN10 Days Qty: 22 RF: 2 sertraline [Zoloft] 50 mg tablet 50 mg PO DAILY Qty: 30 RF: 11 cetirizine [Zyrtec] 10 mg tablet 10 mg PO DAILY Qty: 90 RF: 3 risperidone [Risperdal] 0.25 mg tablet 0.25 mg PO BID Qty: 60 RF: 5 clonazepam 1 mg tablet 1 mg PO BID PRN (Reason: anxiety) Qty: 60 RF: 5 epinephrine 0.3 MG/SYR auto-injector 0.3 mg IJ DIRECTED PRN (Reason: Anaphylaxis) Qty: 2 RF: 0 omeprazole 40 mg capsule,delayed release(DR/EC) 40 mg PO DAILY Qty: 30 RF: 6 Discharge Data Discharge Date/Time-TO BE ENTERED AT DEPARTURE: 02/26/19 00:59 Medical Decision Making <Yeyo Martinez MD - Last Filed: 02/26/19 11:46> 19:43 -- 33-year-old male with history of severe anxiety and bipolar disorder, here with priapism presumed secondary to side effect of risperidone. Attempted terbutaline subcutaneous injection. Dilaudid 1 mg IV for pain. Ativan 1 mg by mouth for anxiety. Urology not available at [facility]. I called [facility] and spoke with Dr. Vila who recommends injecting phenylephrine. LET applied to 1cm cicular area left dorsal proximal penis. I had a lengthy conversation with the patient about penile injection and he elects for procedural sedation. Procedural sedation was performed by me after verbal and written informed consent and without complication. Left corpus callosum was injected with 0.5 mg of phenylephrine peroformed by JORGE Vinson. 20:15 --patient reassessed and unfortunately priapism did not resolve. 1 mL of lidocaine 2% was injected for local anesthetic. A second dose of 0.5mg phenylephrine was injected into left corpus callosum. Care signed out to Dr. Hill. <Ai Hill DO - Last Filed: 02/26/19 00:52> 1999 --please see Dr. Martinez's note for initial presentation and course. 2044 --No relief after second injection of 0.5 mg phenylephrine. Recommended by Dr. Martinez to call urology if no relief after second injection. 2119 --discussed with Dr. Vila - can accept pt for transfer to the ED but can also attempt irrigation here. Recommends irrigating approximately 150 cc of normal saline through a butterfly needle near the base of the penis and can do this bilaterally followed by another injection of phenylephrine to one side. If there is no relief from this, he is happy to accept patient for transfer to [facility]. Patient is agreeable with plan for irrigation here. To help with relaxation as patient has significant debilitating anxiety, a dose of 1 mg Ativan given. 2319 --performed bilateral irrigation and approximately 200 cc of normal saline pushed on both sides total and began to drain somewhat clear and priapism appears to be improving somewhat in that it is not as erect and softening a bit. Irrigation was followed by another dose of 0.5 mg phenylephrine. Will reassess. 0005 --no further change after irrigation/phenylephrine. Pain is still noted to be care home erect and indurated with some residual edema from local injection. 0015 --d/w Dr. Vila -accepts patient for transfer to the ED. Patient is agreeable. No recommendations for antibiotics at this time. Blood pressure 90/44, a liter of normal saline started. Remainder of vitals within normal limits. 0045 --BP 105/38 HPI <Yeyo Martinez MD - Last Filed: 02/26/19 11:46> General Mode of arrival: ambulatory. Date/Time Provider Initiated Documentation: 02/25/19 17:11. Limitations to Documentation: no limitations. Information obtained by: patient. HPI Narrative: 33-year-old male with history of anxiety and bipolar disorder, minimally communicative, here with painful erection that started around 3 AM this morning and has persisted. Patient is on risperidone. Erection is painful and persistent. No modifiers. No new medication changes. Related Data Home Medications Medication Instructions Recorded Confirmed epinephrine 0.3 mg IJ DIRECTED PRN #2 kit 04/20/15 06/30/17 mupirocin 1 applic TOPICAL BID PRN 10 Days 02/03/18 #22 gm omeprazole 40 mg PO DAILY #30 cap 12/01/18 sertraline 50 mg tablet 50 mg PO DAILY #30 tab-cap 07/15/18 cetirizine 10 mg tablet 10 mg PO DAILY #90 tab-cap 08/17/18 risperidone 0.25 mg tablet 0.25 mg PO BID #60 tab 10/18/18 clonazepam 1 mg tablet 1 mg PO BID PRN #60 tab 02/15/19 Previous Rx's Medication Instructions Recorded epinephrine 0.3 mg IJ DIRECTED PRN #2 kit 04/20/15 omeprazole 40 mg PO DAILY #30 cap 05/28/18 sertraline 50 mg tablet 50 mg PO DAILY #30 tab-cap 07/15/18 cetirizine 10 mg tablet 10 mg PO DAILY #90 tab-cap 08/17/18 risperidone 0.25 mg tablet 0.25 mg PO BID #60 tab 10/18/18 clonazepam 1 mg tablet 1 mg PO BID PRN #60 tab 02/15/19 Allergies Allergy/AdvReac Type Severity Reaction Status Date / Time bacitracin Allergy Unverified 02/25/19 17:12 beer Allergy Severe Anaphylaxsi Uncoded 02/25/19 17:12 s unknown anphalyxis Allergy Severe Anaphylaxsi Uncoded 02/25/19 17:12 s General Stated Complaint: GenMedical CONSTANCE: 3 Review of Systems <Yeyo Martinez MD - Last Filed: 02/26/19 11:46> Review of Systems Unobtainable due to mental condition PFS <Yeyo Martinez MD - Last Filed: 02/26/19 11:46> Medical History Anxiety (Chronic) Bipolar disorder (Chronic) Surgical History H/O hernia repair (Chronic) Unspecified site, repaired x3 History of splenectomy (Resolved) Social History Smoking/Tobacco Use Status: Never Alcohol Intake: never Drug use: Never Substance use type: does not use Do you feel safe at home: Yes Do you feel safe in your relationship?: Yes Exam <Yeyo Martinez MD - Last Filed: 02/26/19 11:46> Const General: in distress and anxious Orientation: alert and awake Limitations: behavioral limitations (severe anxiety) [facility] Head: normocephalic Mouth: moist mucous membranes Eyes Conjunctivae: normal conjunctivae Sclera: normal sclerae Neck Neck: trachea midline and supple Resp Auscultation: clear to auscultation bilaterally, no rales, no rhonchi and no wheezes Cardio Jugular venous pressure: no JVD Rate: tachycardic GI Palpation: soft, not firm, no guarding, no masses, not rigid and nontender Penis: other (priapism, nl color) Scrotum: scrotum normal Testes: normal Skin General skin exam: no rashes or lesions noted Neuro General: alert, awake, oriented x3 and tone normal Extrem General: no edema Psych Mood: anxious mood Affect: anxious affect Attitude: avoids eye contact Course <Yeyo Martinez MD - Last Filed: 02/26/19 11:46> Vital Signs Temperature 36.7 C 02/25/19 17:10 Pulse 104 H 02/25/19 17:10 Respiratory Rate 18 02/25/19 17:10 Blood Pressure 154/73 H 02/25/19 17:10 Pulse Oximetry 96 02/25/19 17:10 Temperature 36.7 C 02/25/19 17:10 Temperature Source Skin 02/25/19 17:10 Pulse 104 H 02/25/19 17:10 Respiratory Rate 18 02/25/19 17:10 Blood Pressure 154/73 H 02/25/19 17:10 Pulse Oximetry 96 02/25/19 17:10 Pain Level 10 02/25/19 17:10 Lab/Test Results Lab/Test Results: Laboratory Tests Range/Units 02/25/19 02/25/19 18:11 18:11 WBC (4.4-10.8) k/cumm 13.88 H RBC (4.50-6.00) m/cumm 4.94 Hgb (13.5-17.5) g/dL 15.1 Hct (40.0-50.0) % 44.3 MCV (80-95) fL 89.7 MCH (27.0-33.0) pg 30.6 MCHC (32.0-36.0) g/dL 34.1 RDW (11.8-14.1) % 14.9 H Plt Count (130-400) x1000/uL 460 H MPV (8.0-11.0) fL 10.0 Immature Gran % 0.3 Neutrophils % 63.1 Lymphocytes % 27.1 Monocytes % 8.0 Eosinophils % 1.4 Basophils % 0.1 Absolute Neutrophils (1.2-6.7) k/cumm 8.76 H Absolute Lymphocytes (1.2-3.4) k/cumm 3.76 H Absolute Monocytes (0.11-0.7) k/cumm 1.11 H Absolute Eosinophils (0.0-0.7) k/cumm 0.19 Absolute Basophils (0.0-0.2) k/cumm 0.01 Sodium (136-145) mmol/L 139 Potassium (3.5-5.1) mmol/L 3.4 L Chloride (98-107) mmol/L 102 Carbon Dioxide (21.0-32.0) mmol/L 25.3 Anion Gap (3-11) mmol/L 11.7 H BUN (7-18) mg/dL 10 Creatinine (0.70-1.30) mg/dL 1.06 Estimated GFR/1.73 m2 (mL/min/1.73m2) >= 60.00 Glucose (70-100) mg/dL 107 H Calcium (8.5-10.1) mg/dL 9.0 Total Bilirubin (0.2-1.0) mg/dL 1.7 H AST (15-37) U/L 24 ALT (16-63) U/L 25 Alkaline Phosphatase (46-116) U/L 82 Total Protein (6.4-8.2) g/dL 8.0 Albumin (3.4-5.0) g/dL 4.0 Procedures <Yeyo Martinez MD - Last Filed: 02/26/19 11:46> Procedural Sedation Indication: other (penial injection for priapism) ASA Class: I Preparation: engine monitor applied, pulse oximeter, capnometry used, supplemental O2 applied (nasal), reversal agents at bedside, suction/airway equipment at bedside and IV secured IV Propofol dose (mg): 130 Patient Tolerated Procedure: well and no complications Complications: none <Ai Hill DO - Last Filed: 02/26/19 00:52> Penile Procedure Time Out Performed: Yes Indication: priapism management Procedural Sedation: No Sedation/Analgesia: benzodiazepines Local Anesthesia Used: Lidocaine 1% without EPI Amount of anesthesia used (mL): 6 (3cc to both sides at 10 and 2 ) Priapism Management: phenylephrine injection Patient Tolerated Procedure: well Complications: none Additional Comments: On both sides, a 21-gauge butterfly needle was placed at 10 and 2:00 with aspiration of blood to confirm placement. A second 18-gauge needle was placed above this butterfly needle bilaterally. A total of 200 cc bilaterally total was pushed through the butterfly needle to then drain out of the 18-gauge needle above and on both sides was continued until draining somewhat clear. Patient tolerated procedure well. This procedure was followed by an injection of 0.5mL phenylephrine mixed with 0.5mL normal saline. Approximately 250cc of blood mixed with saline was drained. Sign Out <Yeyo Martinez MD - Last Filed: 02/26/19 11:46> Sign Out Data: Sign Out Comment: Reassess patient in 15min. If priapism persists, discuss case with Dr. Vila (urology at [facility] Determine disposition. Last updated by Yeyo Martinez MD at 02/25/19 20:20
[2019-02-25] MEDS: Propofol 200 MG/20 ML VIAL (19:30)
--- NOTE | 2019-02-25 19:38 | NUR.NOTE ---
Nursing Note: pt awake. moving, answering questions appropriately.
--- NOTE | 2019-02-25 19:48 | NUR.NOTE ---
Nursing Note: No change in patient's erection. MD Martinez notified.
--- NOTE | 2019-02-25 19:59 | RESPIRATORY ---
02/25/2019-Pt here for a procedure with sedation.Pt extremely anxious at baseline. Pre-sedation RR 32, Spo2 91 RA, HR 87, ETCO2 31mmhg. During sedation RR 17, Spo2 96 5 LPM NC, HR 99, ETCO2 31mmhg.Post Sedation RR 30-42, SPO2 93-97% 2 LPM NC, HR 102, ETCO2 28-37 mmhg.
[2019-02-25] MEDS: LORazepam 2 MG/ML VIAL 1 MG IVP (22:05)
[2019-02-26] VITALS (11 sets, daily range): BP systolic 90–105; BP diastolic 38–44; PULSE 67–93; RESP 12–20; O2SAT 93–96
== END 2019-02-26 00:59 | disposition short-term general hospital (02) ==
PROVIDERS: Student in an Organized Health Care Education/Training Program; Emergency Provider Physician Assistant; PCP Family Medicine
DX: N48.33 Priapism, drug-induced (principal); T43.505A Adverse effect of unspecified antipsychotics and neuroleptics, initial encounter; F31.9 Bipolar disorder, unspecified; F41.9 Anxiety disorder, unspecified
CPT/HCPCS: 36415; 54220; 80053; 96361; 96372; 96374; 96375; 99285; 85025; J2060

== ENCOUNTER 2019-04-11 16:08 | Emergency (ER) | payer MEDICARE, MEDICAID, SELFPAY ==
[2019-04-11] VITALS (17 sets, daily range): BP systolic 115–138; BP diastolic 54–104; PULSE 67–95; RESP 0–49; TEMP 36.8; O2SAT 94–99
--- NOTE | 2019-04-11 16:21 | ED.GENADUL_ITS ---
Discharge Plan Disposition Patient Disposition: HOME Condition: Improving Discharge Details Chief Complaint: Chest Pain Clinical Impression: Acute bronchitis Primary Care Provider: José Miguel Flores ED Provider: Zbigniew Castaneda Home Meds and New Rx's Prescriptions: New amoxicillin-pot clavulanate 875-125 mg tablet 1 tab PO BID 10 Days Qty: 19 RF: 0 Continued cetirizine [Zyrtec] 10 mg tablet 10 mg PO DAILY Qty: 90 RF: 3 epinephrine 0.3 mg/0.3 mL auto-injector 0.3 mg IJ DIRECTED PRN (Reason: Anaphylaxis) Qty: 2 RF: 0 fluticasone propionate [Allergy Relief (fluticasone)] 50 mcg/actuation spray,suspension 1 spray MILLICENT DAILY PRN (Reason: allergy symptoms) Qty: 9.9 RF: 2 omeprazole 40 mg capsule,delayed release(DR/EC) 40 mg PO DAILY PRN (Reason: dyspepsia) Qty: 30 RF: 6 risperidone [Risperdal] 0.25 mg tablet 0.25 mg PO BID Qty: 60 RF: 11 mupirocin 22 GM ointment 1 applic Topical BID PRN10 Days Qty: 22 RF: 2 clonazepam 1 mg tablet 1 mg PO BID PRN (Reason: anxiety) Qty: 60 RF: 5 simethicone 80 mg tablet,chewable 40 mg PO Q6H PRN PRNRF: 0 apixaban 5 mg tablet 5 mg PO BID Qty: 180 RF: 3 Discharge Instructions Instructions: Acute Bronchitis (ED) Additional Instructions: Home to rest today. Please follow-up with regular doctor for recheck in the next 5 to 7 days time. Return to the emerge department for worsening discomfort, shortness of breath, or any other acute concerns Take antibiotics as prescribed. May use the prescribed Tessalon as needed for cough. Medical Decision Making 33-year-old male who has fairly debilitating anxiety, recent diagnosis of pulmonary embolism for which he is been taking Eliquis. Now with 2 days of cough, congestion. States he is worried he may have a respiratory infection. He arrives with normal vital signs: Afebrile, pulse 82, blood pressure 137/70, 97% percent on room air. Laboratory analysis reveals a white count of 15, hematocrit 46, platelets 572. Chemistries with sodium 142, potassium 3.4, chloride 103, bicarb 27, BUN 6, creatinine 1.0. Given his history of PE and now with cough, the patient is referred for CT images to rule out focal lobar pneumonia versus breakthrough pulmonary embolism. He is given 1 mg of Ativan for anxiolysis. Patient's CT scan shows no evidence of pulmonary embolism nor of focal consolidation. There is note of heterogenous enlargement of the left lobe of the thyroid with further evaluation recommended with nonemergent thyroid ultrasound. Given the patient's elevated white blood cell count, cough with congestion, I do feel he merits treatment with antibiotics. Will treat with a course of Augmentin. Discussed with him home management as well as follow-up and return precautions. He stable and improved at this time. He does have significant whitecoat anxiety. He acknowledges this & is stable for discharge at this time. ECG Data Attestation: I personally reviewed and interpreted this ECG (s) as follows: Interpretation: Normal sinus rhythm, rate of 79, the QRS is narrow, there is no ST segment elevation, no significant change from comparison of October 01, 2018 [facility] General Mode of arrival: ambulatory . Date/Time Provider Initiated Documentation: 04/11/19 16:09 . Limitations to Documentation: no limitations . Information obtained by: patient . History of Present Illness 33 year old M presents to the emergency department with the chief complaint of Cough, congestion x2 days. On Eliquis for history of PE., described as moderate, Quality is described as constant, and is localized to the chest. Patient reports no radiation. Patient started experiencing this day(s) and it has been constant. No relieving factors improve symptom(s), No exacerbating factors reported . Patient notes cough; denies fever/chills, shortness of breath and syncope. Patient did receive the following treatments prior to arrival, none Related Data Home Medications Medication Instructions Recorded Confirmed mupirocin 1 applic TOPICAL BID PRN 10 Days 02/03/18 04/11/19 #22 gm clonazepam 1 mg tablet 1 mg PO BID PRN #60 tab 02/15/19 04/11/19 cetirizine 10 mg tablet 10 mg PO DAILY #90 tab-cap 03/10/19 04/11/19 epinephrine 0.3 mg/0.3 mL 0.3 mg IJ DIRECTED PRN #2 kit 03/10/19 04/11/19 injection, auto-injector fluticasone propionate 50 1 spray MILLICENT DAILY PRN #9.9 ml 03/10/19 04/11/19 mcg/actuation nasal spray,suspension omeprazole 40 mg capsule,delayed 40 mg PO DAILY PRN #30 cap 03/10/19 04/11/19 release risperidone 0.25 mg tablet 0.25 mg PO BID #60 tab 03/10/19 04/11/19 simethicone 80 mg chewable tablet 40 mg PO Q6H PRN PRN tab 03/10/19 04/11/19 apixaban 5 mg tablet 5 mg PO BID #180 tab 04/04/19 04/11/19 amoxicillin-pot clavulanate 1 tab PO BID 10 Days #19 tab 04/11/19 Previous Rx's Medication Instructions Recorded clonazepam 1 mg tablet 1 mg PO BID PRN #60 tab 02/15/19 cetirizine 10 mg tablet 10 mg PO DAILY #90 tab-cap 03/10/19 epinephrine 0.3 mg/0.3 mL 0.3 mg IJ DIRECTED PRN #2 kit 03/10/19 injection, auto-injector fluticasone propionate 50 1 spray MILLICENT DAILY PRN #9.9 ml 03/10/19 mcg/actuation nasal spray,suspension omeprazole 40 mg capsule,delayed 40 mg PO DAILY PRN #30 cap 03/10/19 release risperidone 0.25 mg tablet 0.25 mg PO BID #60 tab 03/10/19 apixaban 5 mg tablet 5 mg PO BID #180 tab 04/04/19 amoxicillin-pot clavulanate 1 tab PO BID 10 Days #19 tab 04/11/19 Allergies Allergy/AdvReac Type Severity Reaction Status Date / Time bacitracin Allergy Unverified 03/10/19 13:03 beer Allergy Severe Anaphylaxsi Uncoded 03/10/19 13:03 s unknown anphalyxis Allergy Severe Anaphylaxsi Uncoded 03/10/19 13:03 s General CONSTANCE: 2 Review of Systems Review of Systems Narrative: States chest pain and cough for 2 days. No sniffing and shortness of breath. Long-standing anxiety. States his been taking his Eliquis. 6 systems reviewed and otherwise negative [facility] Medical History Anxiety (Chronic) Bipolar disorder (Chronic) Surgical History H/O hernia repair (Chronic) Unspecified site, repaired x3 History of splenectomy (Resolved) Social History Smoking/Tobacco Use Status: Never Alcohol Intake: never Drug use: Never Substance use type: does not use Do you feel safe at home: Yes Do you feel safe in your relationship?: Yes Exam Narrative Exam Narrative: GEN: awake, alert, oriented 3. Pleasant, well groomed, anxious. HEAD: Normocephalic, atraumatic ENT: Mucous membranes moist, oropharynx unremarkable, External ear exam unremarkable EYES: PERRL, EOMI NECK: Full ROM, no TITA, no menigismus CHEST/RESP: Nontender, clear to auscultation bilateral, no wheeze/rhonchi/rales CARDIOVASCULAR: RRR, no murmur, rub mao. 2+ Rad pulse bilateral ABDOMEN: Soft, nontender, no mass. +Bowel sounds EXT: Full ROM, no edema, no rash Neuro: Grossly normal neurologic exam, conversant, interactive. Psych: Speech fluent, thoughts congruent, affect anxious
[2019-04-11] MEDS: Normal Saline 1,000 ML 1000 ML IV (16:37)
[2019-04-11] MEDS: LORazepam 2 MG/ML VIAL 1 MG IVP (16:37)
[2019-04-11 16:45] LABS: HCT 46.6 % (40.0-50.0); HGB 15.2 g/dL (13.5-17.5); Mean Corp. HGB Concentration 32.6 g/dL (32.0-36.0); Mean Corpuscular Hemoglobin 30.3 pg (27.0-33.0); Platelet Count 572 x1000/uL (130-400); RBC 5.01 m/cumm (4.50-6.00); RBC Distribution Width 15.3 % (11.8-14.1); White Blood Cell Count 15.24 k/cumm (4.4-10.8)
[2019-04-11 16:53] LABS: ALT 21 U/L (16-63); AST 21 U/L (15-37); Albumin 4.3 g/dL (3.4-5.0); Alkaline Phosphatase 81 U/L (46-116); Anion Gap 11.2 mmol/L (3-11); BUN 6 mg/dL (7-18); Bilirubin, Total 1.6 mg/dL (0.2-1.0); CO2 27.8 mmol/L (21.0-32.0); CREATININE 1.07 mg/dL (0.70-1.30); Calcium 9.1 mg/dL (8.5-10.1); Chloride 103 mmol/L (98-107); Glucose 95 mg/dL (70-100); Potassium 3.4 mmol/L (3.5-5.1); Prothrombin Time 9.9 sec (9.3-11.0); Sodium 142 mmol/L (136-145); Total Protein 8.5 g/dL (6.4-8.2)
--- NOTE | 2019-04-11 17:20 | DI.CT_ITS ---
EXAM: CT CHEST PE CTA CLINICAL HISTORY: Hx PE. Chest pain, cough TECHNIQUE: The exam was performed according to the usual protocol utilizing 86 cc's of Omnipaque 350 . COMPARISON: XR CHEST 2V PA LATERAL from 10/01/2018 FINDINGS: The exam is somewhat limited by patient body habitus. There is also motion limiting the exam. No nilda ss pulmonary emboli are seen. There are no pleural or pericardial effusions or evidence of a focal in filtrate. IMPRESSION: Negative chest CT.
[2019-04-11] MEDS: Omnipaque 350 MG/ML 100 ML BTL IJ (17:22)
[2019-04-11] MEDS: Normal Saline Flush 10 ML SYR IVP (17:22)
[2019-04-11 17:25] LABS: Absolute Lymphocyte Count 5.33 k/cumm (1.2-3.4); Absolute Monocyte Count 1.22 k/cumm (0.11-0.7); Absolute Neutrophil Count 8.38 k/cumm (1.2-6.7); Atypical Lymphocytes % 11
[2019-04-11 17:26] LABS: Anisocytosis 1+; Diff Comment Manual Differential; Howell-Jolly Bodies 1+; Hypochromasia 1+
--- NOTE | 2019-04-11 17:46 | DI.VRAD_ITS ---
PROCEDURE INFORMATION: Exam: CT Angiography Chest With Contrast Exam date and time: 04/11/2019 4:28 PM Clinical history: 33 years old, male; Other: HX pe. Chest pain, cough TECHNIQUE: Imaging protocol: Computed tomographic angiography of the chest with intravenous contrast. 3D rendering: MIP reconstructed images were created and reviewed. Radiation optimization: All CT scans at this facility use at least one of these dose optimization techniques: automated exposure control; mA and/or kV adjustment per patient size (includes targeted exams where dose is matched to clinical indication); or iterative reconstruction. Contrast material: OMNIPAQUE 350; Contrast volume: 86 ml; Contrast route: IV; COMPARISON: CR XR CHEST 2V PA LATERAL 10/01/2018 2:13 PM FINDINGS: Pulmonary arteries: No filling defects within the main, lobar, segmental, and subsegmental pulmonary arterial branches. Aorta: No aortic aneurysm. No evidence of dissection. Thyroid: Heterogeneous enlargement of the left lobe of the thyroid gland extending inferiorly into the thoracic outlet. Lungs: No focal areas of consolidation. Pleural space: No pleural effusion or pneumothorax. Heart: Unremarkable. No pericardial effusion. Lymph nodes: No enlarged lymph nodes. Bones/joints: No acute osseus lesion or fracture. Soft tissues: Unremarkable. IMPRESSION: 1. No CTA evidence of pulmonary embolism. 2. Heterogeneous enlargement of the left lobe of the thyroid gland extending inferiorly into the thoracic outlet. Recommend further evaluation with nonemergent thyroid ultrasound. Dictated and Authenticated by: Tyrel Velarde MD. Ordering:RICHARD Coy MD
[2019-04-11] MEDS: Amoxicillin 875/Clav. 125 TAB PO (18:00)
== END 2019-04-11 18:17 | disposition home or self-care (01) ==
PROVIDERS: Emergency Provider Emergency Medicine; PCP Family Medicine
DX: J20.9 Acute bronchitis, unspecified (principal)
CPT/HCPCS: 36415; 71275; 80053; 82805; 93005; 96361; 96374; 99285; 85025; 85610; 93010; 99284; J2060; J3490

== ENCOUNTER 2019-05-12 20:48 | Emergency (ER) | payer MEDICARE, MEDICAID, SELFPAY ==
[2019-05-12 20:55] VITALS: PULSE 94; RESP 20; TEMP 36.2; O2SAT 97
[2019-05-12 21:01] VITALS: RESP 20
--- NOTE | 2019-05-12 21:05 | ED.GENADUL_ITS ---
Discharge Plan Disposition Patient Disposition: HOME Condition: Stable Discharge Details Chief Complaint: GenMedical Clinical Impression: Contact dermatitis Primary Care Provider: José Miguel Flores ED Provider: Dewayne Felix [place] Meds and New Rx's Prescriptions: Continued cetirizine [Zyrtec] 10 mg tablet 10 mg PO DAILY Qty: 90 RF: 3 epinephrine 0.3 mg/0.3 mL auto-injector 0.3 mg IJ DIRECTED PRN (Reason: Anaphylaxis) Qty: 2 RF: 0 fluticasone propionate [Allergy Relief (fluticasone)] 50 mcg/actuation spray,suspension 1 spray MILLICENT DAILY PRN (Reason: allergy symptoms) Qty: 9.9 RF: 2 omeprazole 40 mg capsule,delayed release(DR/EC) 40 mg PO DAILY PRN (Reason: dyspepsia) Qty: 30 RF: 6 risperidone [Risperdal] 0.25 mg tablet 0.25 mg PO BID Qty: 60 RF: 11 mupirocin 22 GM ointment 1 applic Topical BID PRN10 Days Qty: 22 RF: 2 clonazepam 1 mg tablet 1 mg PO BID PRN (Reason: anxiety) Qty: 60 RF: 5 simethicone 80 mg tablet,chewable 40 mg PO Q6H PRN PRNRF: 0 apixaban 5 mg tablet 5 mg PO BID Qty: 180 RF: 3 benzonatate [Tessalon Perles] 100 mg capsule 100 mg PO BID PRN (Reason: cough) Qty: 10 RF: 0 Discharge Instructions Additional Instructions: take 25mg benadryl every 6 hours as needed for itching if the rash and itching is not better by next week see your primary care provider return to the emergency department if you have difficulty breathing, high fevers or feel more ill Medical Decision Making 33 y omale with severe anxiety comes in with complaints of right hand itching. denies fevers, pain, dyspnea, abdominal pain. He has a 2x3cm or mild erythema over the thenar eminence that blanches and is not warm to touch, no findings to suggest cellulitis or other infectious etiology. It appears to be contact dermatitis. Will have him start benadryl prn and steroid cream. I advised f/u with pcp if not improving and return precautions given Differential Diagnosis Differential Diagnosis: dermatitis, urticaria HPI General Mode of arrival: ambulatory . Date/Time Provider Initiated Documentation: 05/12/19 20:49 . Limitations to Documentation: no limitations . Information obtained by: patient . History of Present Illness 33 year old M presents to the emergency department with the chief complaint of left hand itching, described as moderate, Patient reports no radiation. Patient started experiencing this day(s) (2) and it has been constant. No relieving factors improve symptom(s), No exacerbating factors reported . Patient did receive the following treatments prior to arrival, none Related Data Home Medications Medication Instructions Recorded Confirmed mupirocin 1 applic TOPICAL BID PRN 10 Days 02/03/18 05/12/19 #22 gm clonazepam 1 mg tablet 1 mg PO BID PRN #60 tab 02/15/19 05/12/19 cetirizine 10 mg tablet 10 mg PO DAILY #90 tab-cap 03/10/19 05/12/19 epinephrine 0.3 mg/0.3 mL 0.3 mg IJ DIRECTED PRN #2 kit 03/10/19 05/12/19 injection, auto-injector fluticasone propionate 50 1 spray MILLICENT DAILY PRN #9.9 ml 03/10/19 05/12/19 mcg/actuation nasal spray,suspension omeprazole 40 mg capsule,delayed 40 mg PO DAILY PRN #30 cap 03/10/19 05/12/19 release risperidone 0.25 mg tablet 0.25 mg PO BID #60 tab 03/10/19 05/12/19 simethicone 80 mg chewable tablet 40 mg PO Q6H PRN PRN tab 03/10/19 05/12/19 apixaban 5 mg tablet 5 mg PO BID #180 tab 04/04/19 05/12/19 benzonatate [Tessalon Perles] 100 mg PO BID PRN #10 cap 04/11/19 05/12/19 Previous Rx's Medication Instructions Recorded clonazepam 1 mg tablet 1 mg PO BID PRN #60 tab 02/15/19 cetirizine 10 mg tablet 10 mg PO DAILY #90 tab-cap 03/10/19 epinephrine 0.3 mg/0.3 mL 0.3 mg IJ DIRECTED PRN #2 kit 03/10/19 injection, auto-injector fluticasone propionate 50 1 spray MILLICENT DAILY PRN #9.9 ml 03/10/19 mcg/actuation nasal spray,suspension omeprazole 40 mg capsule,delayed 40 mg PO DAILY PRN #30 cap 03/10/19 release risperidone 0.25 mg tablet 0.25 mg PO BID #60 tab 03/10/19 apixaban 5 mg tablet 5 mg PO BID #180 tab 04/04/19 benzonatate [Tessalon Perles] 100 mg PO BID PRN #10 cap 04/11/19 Allergies Allergy/AdvReac Type Severity Reaction Status Date / Time bacitracin Allergy Unverified 03/10/19 13:03 beer Allergy Severe Anaphylaxsi Uncoded 03/10/19 13:03 s unknown anphalyxis Allergy Severe Anaphylaxsi Uncoded 03/10/19 13:03 s General Stated Complaint: GenMedical CONSTANCE: 4 Review of Systems All systems reviewed & are unremarkable except as noted in HPI and below Constitutional Constitutional: Denies chills, Denies fever(s) and Denies weakness Eyes Eyes: Denies loss of vision ENT Ears, Nose, Mouth, and Throat: Denies change in voice Cardiovascular Cardiovascular: Denies chest pain and Denies dyspnea Respiratory Respiratory: Denies cough and Denies dyspnea Gastrointestinal Gastrointestinal: Denies abdominal pain, Denies nausea and Denies vomiting Musculoskeletal Musculoskeletal: Denies joint swelling Neurologic Neurologic: Denies loss of vision and Denies weakness Psychiatric Psychiatric: Denies depression Endocrine Endocrine: Denies cold intolerance and Denies heat intolerance [facility] Social History Smoking/Tobacco Use Status: Never Alcohol Intake: never Drug use: Never Substance use type: does not use Do you feel safe at home: Yes Do you feel safe in your relationship?: Yes Exam Const General: no acute distress Orientation: alert HENMT Head: normal to inspection Ears: external ears normal General nose exam: external nose normal Mouth: moist mucous membranes Eyes General: appearance normal, both eyes and all related structures Neck Neck: normal visual inspection Resp Effort & Inspection: normal respiratory effort and able to speak in complete sentences Cardio Rate: regular rate Skin General skin exam: elasticity normal Neuro General: alert and oriented x3 Extrem General: normal to inspection Psych Mental Status: mental status grossly normal Course Vital Signs Vital signs: Vital Signs Temperature 36.2 C L 05/12/19 20:55 Pulse 94 H 05/12/19 20:55 Respiratory Rate 20 05/12/19 20:55 Pulse Oximetry 97 05/12/19 20:55 Temperature 36.2 C L 05/12/19 20:55 Temperature Source Tympanic 05/12/19 20:55 Pulse 94 H 05/12/19 20:55 Respiratory Rate 20 05/12/19 21:01 Respiratory Effort 05/12/19 21:01 Respiratory Depth Normal 05/12/19 21:01 Respiratory Pattern Normal 05/12/19 21:01 Blood Pressure Position Sitting 05/12/19 20:55 Pulse Oximetry 97 05/12/19 20:55 Oxygen Delivery Method Room Air 05/12/19 20:55 Oxygen Flow Rate 0 05/12/19 20:55 Pain Level 3 05/12/19 20:55 Comment 05/12/19 20:55
[2019-05-12] MEDS: diphenhydrAMINE 25 MG CAP PO (21:24)
--- NOTE | 2019-05-12 21:31 | NUR.NOTE ---
Hives/itching to base of right thumb x several days. Denies new detergents/soaps/products. Med a/o. Discharge instructions reviewed with verbal understanding. aware to f/u with pcp next week as needed. ambulated to exit with steady gait.
== END 2019-05-12 21:35 | disposition home or self-care (01) ==
PROVIDERS: Emergency Provider Emergency Medicine; PCP Family Medicine
DX: L25.9 Unspecified contact dermatitis, unspecified cause (principal)
CPT/HCPCS: 99282

== ENCOUNTER 2019-07-26 20:41 | Emergency (ER) | payer MEDICARE, MEDICAID, SELFPAY ==
[2019-07-26 20:45] VITALS: BP 134/96; PULSE 110; RESP 28; TEMP 36.8; O2SAT 97
--- NOTE | 2019-07-26 21:03 | ED.GENADUL_ITS ---
Discharge Plan Disposition Patient Disposition: HOME Condition: Fair Discharge Details Chief Complaint: ThroatFB Clinical Impression: Foreign body sensation in throat Primary Care Provider: José Miguel Flores ED Provider: Lyla Vinson Home Meds and New Rx's Prescriptions: Continued epinephrine 0.3 mg/0.3 mL auto-injector 0.3 mg IJ DIRECTED PRN (Reason: Anaphylaxis) Qty: 2 RF: 0 omeprazole 40 mg capsule,delayed release(DR/EC) 40 mg PO DAILY PRN (Reason: dyspepsia) Qty: 30 RF: 6 risperidone [Risperdal] 0.25 mg tablet 0.25 mg PO BID Qty: 60 RF: 11 cetirizine [Zyrtec] 10 mg tablet 10 mg PO DAILY Qty: 90 RF: 3 sertraline 100 mg tablet 100 mg PO DAILY Qty: 90 RF: 3 clonazepam 1 mg tablet 1 mg PO BID PRN (Reason: anxiety) Qty: 60 RF: 5 simethicone 80 mg tablet,chewable 40 mg PO Q6H PRN PRNRF: 0 apixaban 5 mg tablet 5 mg PO BID Qty: 180 RF: 3 fluticasone propionate [Allergy Relief (fluticasone)] 50 mcg/actuation spray,suspension 1 spray MILLICENT DAILY PRN (Reason: allergy symptoms) Qty: 9.9 RF: 11 mupirocin 2 % ointment 1 applic Topical BID PRN (Reason: impetigo) 10 Days Qty: 22 RF: 1 Discharge Instructions Additional Instructions: Dr. Balderrama general surgery is expecting to see you tomorrow at noon at same-day surgery. If at that time, you continue to have your sensation she will take you for an endoscopy like you have had historically. Please do not eat or drink anything after midnight tonight. If you develop difficulty breathing, shortness of breath or the new/worsening symptoms please seek care urgently once again. Referrals: Erlinda Vu DO [OSTEOPATHIC DOCTOR] - Discharge Data Discharge Date/Time-TO BE ENTERED AT DEPARTURE: 07/26/19 22:55 Medical Decision Making Patient is a 33-year-old male with severe anxiety, presenting today with chief complaint of foreign body in his throat. Patient is well-known to myself but does appear to be at his baseline. He reports that approximately an hour prior to arrival he was eating an egg roll reports that this got stuck in his throat. He reports this has happened multiple times historically. Has been coughing frequently since then. No vomiting. Does not feel SOB, has difficulty swallowing, primarily along the right side. On exam, patient is at baseline. He has difficulty communicating at baseline secondary to his anxiety but this does not appear to be changed. He is intermittently coughing. Lungs are clear. No palpable or visible abnormality on his throat. Attempted clearance with effervecent. No improvement. Will give IV glucagon. Patient was able to keep the effervecent and water down. No improvement after IV glucagon. While patient is tolerating secretions well, his extreme anxiety has been concerned about discharging the patient. He was able to tolerate the effervescent, swallow this completely. He has no evidence of airway obstruction or compromise. Consulted with general surgery who advised that if he is tolerating secretions well, she does not feel that emergent scope is needed at this time. If symptoms persist tomorrow, advised that patient come back in for scope at noon. NPO after midnight. Will attempt to control symptoms with viscous lidocaine. Dr. Vu is questioning if this persistent symptom is associated with sensation rather than persistent food bolus. Patient was given his viscous lidocaine and the numbning sensation appears to have exacerbated his anxiety. Will give IV ativan and reasses. Patient was given the IV Ativan and does appear improved. I discussed options with the patient. Given his debilitating anxiety and persistent foreign body sensation, I did offer admission something I had also discussed Dr. Gómez. However, the patient prefers to be discharged home at this time with plan for reevaluation as discussed with Dr. Gómez above tomorrow. He will remain n.p.o. after midnight. At the request of the patient, I also discussed this plan with the patient's father who will be transporting him to his upcoming appointment. He was given return precautions and will return with any new or worsening symptoms. All other questions or concerns were addressed and he is in agreement this plan. HPI General Mode of arrival: ambulatory . Date/Time Provider Initiated Documentation: 07/26/19 21:03 . Limitations to Documentation: no limitations (communication is difficult secondary to patients anxiety) . Information obtained by: patient and RN notes reviewed . History of Present Illness 33 year old M presents to the emergency department with the chief complaint of FB sensation in throat, described as moderate and similar to prior episodes, Quality is described as aching, and is localized to the mouth (right side of throat). Patient started experiencing this hour(s) (1) and it has been constant. No relieving factors improve symptom(s), Eating worsens symptoms . Patient notes no other symptoms.. Patient did receive the following treatments prior to arrival, none Related Data Home Medications Medication Instructions Recorded Confirmed clonazepam 1 mg tablet 1 mg PO BID PRN #60 tab 02/15/19 06/30/19 epinephrine 0.3 mg/0.3 mL 0.3 mg IJ DIRECTED PRN #2 kit 03/10/19 06/30/19 injection, auto-injector omeprazole 40 mg capsule,delayed 40 mg PO DAILY PRN #30 cap 03/10/19 06/30/19 release risperidone 0.25 mg tablet 0.25 mg PO BID #60 tab 03/10/19 06/30/19 simethicone 80 mg chewable tablet 40 mg PO Q6H PRN PRN tab 03/10/19 06/30/19 apixaban 5 mg tablet 5 mg PO BID #180 tab 04/04/19 06/30/19 fluticasone propionate 50 1 spray MILLICENT DAILY PRN #9.9 ml 06/09/19 06/30/19 mcg/actuation nasal spray,suspension cetirizine 10 mg tablet 10 mg PO DAILY #90 tab-cap 06/30/19 06/30/19 sertraline 100 mg tablet 100 mg PO DAILY #90 tab 06/30/19 06/30/19 mupirocin 2 % topical ointment 1 applic TOPICAL BID PRN 10 Days 07/03/19 #22 gm Previous Rx's Medication Instructions Recorded clonazepam 1 mg tablet 1 mg PO BID PRN #60 tab 02/15/19 epinephrine 0.3 mg/0.3 mL 0.3 mg IJ DIRECTED PRN #2 kit 03/10/19 injection, auto-injector omeprazole 40 mg capsule,delayed 40 mg PO DAILY PRN #30 cap 03/10/19 release risperidone 0.25 mg tablet 0.25 mg PO BID #60 tab 03/10/19 apixaban 5 mg tablet 5 mg PO BID #180 tab 04/04/19 fluticasone propionate 50 1 spray MILLICENT DAILY PRN #9.9 ml 06/09/19 mcg/actuation nasal spray,suspension cetirizine 10 mg tablet 10 mg PO DAILY #90 tab-cap 06/30/19 sertraline 100 mg tablet 100 mg PO DAILY #90 tab 06/30/19 mupirocin 2 % topical ointment 1 applic TOPICAL BID PRN 10 Days 07/03/19 #22 gm Allergies Allergy/AdvReac Type Severity Reaction Status Date / Time bacitracin Allergy Unverified 06/30/19 15:43 beer Allergy Severe Anaphylaxsi Uncoded 06/30/19 15:43 s unknown anphalyxis Allergy Severe Anaphylaxsi Uncoded 06/30/19 15:43 s General Stated Complaint: ThroatFB CONSTANCE: 2 Review of Systems Constitutional Constitutional: Reports as per HPI, Denies chills, Denies fever(s) and Denies headache(s) Eyes Eyes: Reports as per HPI, Denies eye discharge and Denies irritation ENT Ears, Nose, Mouth, and Throat: Reports as per HPI and Denies headache(s) Cardiovascular Cardiovascular: Reports as per HPI, Denies chest pain and Denies dyspnea Respiratory Respiratory: Reports as per HPI and Denies dyspnea Gastrointestinal Gastrointestinal: Reports as per HPI, Denies abdominal pain, Denies nausea and Reports vomiting Integumentary/Breasts Skin/Breast: Reports as per HPI and Denies rash Neurologic Neurologic: Reports as per HPI and Denies headache(s) FOR[facility]LY [facility], [facility]1983 Medical History Anxiety (Chronic) Bipolar disorder (Chronic) Surgical History H/O hernia repair (Chronic) Unspecified site, repaired x3 History of splenectomy (Resolved) Social History Smoking/Tobacco Use Status: Never Alcohol Intake: never Drug use: Never Substance use type: does not use Do you feel safe at home: Yes Do you feel safe in your relationship?: Yes Exam Const General: cooperative, healthy appearing, uncomfortable, well developed, well groomed and anxious Nutritional Appearance: well nourished and overweight Orientation: alert and awake [facility] Head: normal to inspection, normocephalic and atraumatic Ears: hearing grossly normal bilaterally, external ears normal and TM's normal bilaterally General nose exam: external nose normal and nares normal Face and sinus: normal facial exam, sinuses nontender and face symmetric Mouth: oral mucosae normal, lip normal, tongue normal, oropharynx normal and moist mucous membranes Teeth and gingiva: dentition normal Throat: posterior oropharynx normal, tonsils normal and uvula midline Eyes General: appearance normal, both eyes and all related structures Neck Neck: normal visual inspection, full ROM, no lymphadenopathy and no meningeal signs Resp Effort & Inspection: normal respiratory effort, able to speak in complete sentences and no respiratory distress Auscultation: clear to auscultation bilaterally, no rales, no rhonchi and no wheezes Cardio Rate: regular rate Rhythm: regular rhythm Heart Sounds: S1 normal and S2 normal Skin General skin exam: no rashes or lesions noted Neuro General: alert and awake Cognition: normal cognition Speech: speech normal Gait: normal gait Psych Appearance: grossly normal and well kempt Mental Status: mental status grossly normal Speech and Movement: speech and movement normal (baseline for patient) Course Vital Signs Vital signs: Vital Signs Temperature 36.8 C 07/26/19 20:45 Pulse 110 H 07/26/19 20:45 Respiratory Rate 28 H 07/26/19 20:45 Blood Pressure 134/96 H 07/26/19 20:45 Pulse Oximetry 97 07/26/19 20:45 Temperature 36.8 C 07/26/19 20:45 Temperature Source Temporal Artery Scan 07/26/19 20:45 Pulse 110 H 07/26/19 20:45 Respiratory Rate 28 H 07/26/19 20:45 Respiratory Effort Non-Labored 07/26/19 20:50 Respiratory Pattern Tachypnea 07/26/19 20:50 Blood Pressure 134/96 H 07/26/19 20:45 Blood Pressure Position Sitting 07/26/19 20:45 Pulse Oximetry 97 07/26/19 20:45 Oxygen Delivery Method Nasal Cannula 07/26/19 20:45 Pain Level 0 07/26/19 20:45
--- NOTE | 2019-07-26 21:56 | NUR.NOTE ---
Nursing Note: Patient tried effervescent fizz before glucagon with no result.
[2019-07-26] MEDS: Lidocaine 2% Viscous 15 ML CUP PO (22:00)
[2019-07-26] MEDS: LORazepam 2 MG/ML VIAL 1 MG IVP (22:21)
[2019-07-26 22:53] VITALS: BP 134/96; PULSE 110; RESP 28; TEMP 36.8; O2SAT 97
== END 2019-07-26 22:55 | disposition home or self-care (01) ==
PROVIDERS: Emergency Provider Physician Assistant; PCP Family Medicine
DX: R09.89 Other specified symptoms and signs involving the circulatory and respiratory systems (principal); F41.9 Anxiety disorder, unspecified
CPT/HCPCS: 96374; 96375; 99284; 99283; J1610; J2060

== ENCOUNTER 2019-07-27 12:42 | Day surgery (SDC) | payer MEDICARE, MEDICAID, SELFPAY ==
[2019-07-27] VITALS (8 sets, daily range): BP systolic 130–184; BP diastolic 76–152; PULSE 91–131; RESP 20–31; TEMP 36.7–37; O2SAT 92–97
--- NOTE | 2019-07-27 13:11 | W.PM.HP.N ---
Date of service: 07/27/19 Time of Service: 13:11 Assessment and Plan Assessment and plan (1) Foreign body sensation in throat: Status: Acute (2) Anxiety: Status: Chronic Assessment and plan: Informed consent is obtained for the procedural (explained in simple layman's terms that the pt and/or family could understand) explaining risks vs benefits and alternatives to the procedure and consequences if we do not do the procedure and need/rational for the procedure. Risks include but are not limited to: bleeding, infection, perforation of esophagus, stomach, colon, small intestines, bronchus or trachea, or PTX. This would necessitate emergency surgery to repair the damage w/ possible ostomy; and other associated complications w/ the required surgery. Also complications of anesthesia including aspiration, VT/CVA/. History of Present Illness Consults Consult date: 07/27/19 Requesting physician: Lyla Vinson Narrative: pt was eating an egg roll last night, and shortly after developed throat pain and a foreegn body senssation and came into the ED. He has extremem anxiety- he can hardly speak and won't make eye contact-this is his baseline however. I did review the notes from the ED last pm. Pt states that he can swallow water. He is swallowing his secretions- but it hurts on his left side of his thorat and cannot swallow on the left side. The red thing in his throat is swollen adn painful- but pt won't open his mouth to let me do an exam. He did not take any of his meds today. He has been NPO. He denies problems from anethesia. He is on Elequis- his last dose was yest. He is not a DM. Review of Systems All systems reviewed & are unremarkable except as noted in HPI and below PFSH Medical History Anxiety (Chronic) Bipolar disorder (Chronic) Surgical History H/O hernia repair (Chronic) Unspecified site, repaired x3 History of splenectomy (Resolved) Social History Smoking/Tobacco Use Status: Never Alcohol Intake: never Drug use: Never Substance use type: does not use Do you feel safe at home: Yes Do you feel safe in your relationship?: Yes Meds Home Medications and Allergies Home Medications Medication Instructions Recorded Confirmed Type clonazepam 1 mg tablet 1 mg PO BID PRN #60 tab 02/15/19 07/27/19 Rx epinephrine 0.3 mg/0.3 mL 0.3 mg IJ DIRECTED PRN #2 kit 03/10/19 07/27/19 Rx injection, auto-injector omeprazole 40 mg capsule,delayed 40 mg PO DAILY PRN #30 cap 03/10/19 07/27/19 Rx release risperidone 0.25 mg tablet 0.25 mg PO BID #60 tab 03/10/19 07/27/19 Rx simethicone 80 mg chewable tablet 40 mg PO Q6H PRN PRN tab 03/10/19 07/27/19 History apixaban 5 mg tablet 5 mg PO BID #180 tab 04/04/19 07/27/19 Rx fluticasone propionate 50 1 spray MILLICENT DAILY PRN #9.9 ml 06/09/19 07/27/19 Rx mcg/actuation nasal spray,suspension cetirizine 10 mg tablet 10 mg PO DAILY #90 tab-cap 06/30/19 07/27/19 Rx sertraline 100 mg tablet 100 mg PO DAILY #90 tab 06/30/19 07/27/19 Rx mupirocin 2 % topical ointment 1 applic TOPICAL BID PRN 10 Days 07/03/19 07/27/19 Rx #22 gm Allergies Allergy/AdvReac Type Severity Reaction Status Date / Time bacitracin Allergy Unverified 06/30/19 15:43 beer Allergy Severe Anaphylaxsi Uncoded 06/30/19 15:43 s unknown anphalyxis Allergy Severe Anaphylaxsi Uncoded 06/30/19 15:43 s Exam Const General: in distress, anxious and disheveled Orientation: oriented to person Limitations: behavioral limitations Other: pt won't answer most questions or coopertae w/ exam. Able to swallow secretions.
[2019-07-27] MEDS: Lactated Ringers 1,000 ML 100 ML IV (13:32)
--- NOTE | 2019-07-27 14:03 | ENDO_ITS ---
Date of service: 07/27/19 Time of Service: 14:04 Endoscopy Report DATE OF PROCEDURE: 07/27/19 PRE-OP DIAGNOSIS: foreign body sensation/anxiety POST-OP DIAGNOSIS: other (hiatal hernia/esophagitis ) PROCEDURE: EGD SURGEON: Erlinda Vu ANESTHESIA: GETA ESTIMATED BLOOD LOSS: 0 PATHOLOGY: none sent COMPLICATIONS: None DISPOSITION: PACU PROCEDURE DESCRIPTION: After informed consent was obtained the patient was take to the procedure room and placed in a supine position. Monitors were applied and a time out was done. The patients name, date of , procedure type, allergies to medications and metal in their body was reviewed. General anesthesia was administered per the department of anesthesia .prior to being intubated I did visualize the oropharynx. Teeth are in good repair. Tongue is normal. Jugular is normal. There is no redness or edema. There is no redness or edema in the retropharyngeal space or in the supraglottic regioin. the gastroscope was advanced through the oropharynx which was grossly normal into the esophagus. The proximal and mid-esophagus were nl. 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 I did not take any Bx as pt is on ellequis for a PE. There is no signs of any erythema or edema. All esophageal stuctures are shira. the scope was advanced into the stomach and through the pylorus into the 3rd portion of the duodenum. The du odenum was noted to be nl. There were no ulcers/gastritis. The scope was retroflexed. The cardia and fundus were noted to be normal. There large a hiatal hernia noted. Patient has changes at the GE junction consistent with esophagitis. There are there is a 0.5 cm tongue of Jensen's at the 3:00 position and a 2 cm tongue of biopsy Jensen's at the 5 o'clock position. Biopsies not taken because he is fully anticoagulated. The Z line was irregular. The GE junction was at 40 cm. The scope was removed and the patient was woken up and taken back to [facility] in stable condition.
[2019-07-27] MEDS: LORazepam 2 MG/ML VIAL 0.5 MG IVP (14:36)
--- NOTE | 2019-07-27 14:54 | W.PM.DSUDISC ---
Discharge Plan Disposition Patient Disposition: HOME Condition: Good Discharge Details Reason For Visit: stomach scope Attending Provider: Erlinda Vu Primary Care Provider: José Miguel Flores Home Meds and New Rx's Prescriptions: No Action epinephrine 0.3 mg/0.3 mL auto-injector 0.3 mg IJ DIRECTED PRN (Reason: Anaphylaxis) Qty: 2 RF: 0 omeprazole 40 mg capsule,delayed release(DR/EC) 40 mg PO DAILY PRN (Reason: dyspepsia) Qty: 30 RF: 6 risperidone [Risperdal] 0.25 mg tablet 0.25 mg PO BID Qty: 60 RF: 11 cetirizine [Zyrtec] 10 mg tablet 10 mg PO DAILY Qty: 90 RF: 3 sertraline 100 mg tablet 100 mg PO DAILY Qty: 90 RF: 3 clonazepam 1 mg tablet 1 mg PO BID PRN (Reason: anxiety) Qty: 60 RF: 5 simethicone 80 mg tablet,chewable 40 mg PO Q6H PRN PRNRF: 0 apixaban 5 mg tablet 5 mg PO BID Qty: 180 RF: 3 fluticasone propionate [Allergy Relief (fluticasone)] 50 mcg/actuation spray,suspension 1 spray MILLICENT DAILY PRN (Reason: allergy symptoms) Qty: 9.9 RF: 11 mupirocin 2 % ointment 1 applic Topical BID PRN (Reason: impetigo) 10 Days Qty: 22 RF: 1 Discharge Instructions Instructions: Gastroesophageal Reflux Disease (GEN) Additional Instructions: Findings: chronic GERD and hiatal hernia. No foreign body/redness/swelling Continue with lifestyle modifications: no alcohol, tobacco products, Aspirin or NSAID's (ibuprofen, Motrin, Naprosyn, aleve, etc), soda pop/any carbonated beverages, caffeine (including tea & chocolate), and acidic foods, (tomatoes, citrus, onions, peppermints) spicy foods. Do not lie down for 30 minutes after eating, and do not eat 2 hours prior to bedtime. Avoid wearing tight fitting clothing/ belts Please call if you develop: fevers >101.5 Nausea or Vomiting Abdominal pain that is not transient DAY SURGERY UNIT POST COLONOSCOPY INSTRUCTIONS 1. Because there will be medication in your system for the next 24 hours, you may feel a little sleepy. Your coordination will be affected. Therefore: a. Do not drive or operate dangerous equipment for 24 hours. b. Do not drink alcohol beverages for 24 hours (not even beer). c. Plan to go home and rest for the day. 2. Generally there are no restrictions on your activity after a day or so has gone by, but you may feel a bit fatigued for a few days. 3 After you arrive home you may have a light meal and return to a normal diet as you can tolerate it without feeling sick to your stomach. 4. After surgery, you may feel pain or discomfort. This should be only transient, but if it persists please contact your doctor. 5. If there are any questions regarding the findings of your procedure, please feel free to contact your doctor. 6. If you are unable to contact your doctor with a problem, contact the hospital at [phone]. 7. Continue all your regular medications unless directed otherwise. I understand the above instructions and have no questions. Signature of Patient or Responsible Adult Escort Date/Time Name of Responsible Adult Escort Signature of Nurse Date/Time Activity:: No heavy lifting or strenuous activity x24 hours Diet:: Liquid or soft diet x24 hours Discharge Orders Discharge Orders: Discharge Order (Routine); Ordered 07/27/19 Ordered By: Erlinda Vu DS: Diagnosis Discharge Diagnosis (1) Foreign body sensation in throat: Status: Acute (2) Anxiety: Status: Chronic (3) GERD with esophagitis: Status: Acute
== END 2019-07-27 16:05 | disposition home or self-care (01) ==
PROVIDERS: PCP Family Medicine; Visit Provider Surgery
PROC: 0DC68ZZ Extirpation of Matter from Stomach, Via Natural or Artificial Opening Endoscopic (ICD-10-PCS; CPT 43247; principal; 2019-07-27 11:00)
DX: R09.89 Other specified symptoms and signs involving the circulatory and respiratory systems (principal); F41.9 Anxiety disorder, unspecified; K44.9 Diaphragmatic hernia without obstruction or gangrene; Z86.711 Personal history of pulmonary embolism; Z79.01 Long term (current) use of anticoagulants; K20.9 Esophagitis, unspecified
CPT/HCPCS: 43235; 99222; J1100; J2001; J2060; J2250; J2405; J2704

== ENCOUNTER 2019-07-31 18:45 | Emergency (ER) | payer MEDICARE, MEDICAID, SELFPAY ==
[2019-07-31 18:48] VITALS: BP 140/75; PULSE 89; RESP 22; TEMP 36.6; O2SAT 96
--- NOTE | 2019-07-31 19:54 | ED.GENADUL_ITS ---
Discharge Plan Disposition Patient Disposition: HOME Condition: Improving Discharge Details Chief Complaint: Abd Prob Clinical Impression: Upper abdominal pain Primary Care Provider: José Miguel Flores ED Provider: Ai Hill Home Meds and New Rx's Prescriptions: New famotidine [Pepcid] 20 mg tablet 20 mg PO DAILY 14 Days Qty: 14 RF: 0 Continued epinephrine 0.3 mg/0.3 mL auto-injector 0.3 mg IJ DIRECTED PRN (Reason: Anaphylaxis) Qty: 2 RF: 0 risperidone [Risperdal] 0.25 mg tablet 0.25 mg PO BID Qty: 60 RF: 11 cetirizine [Zyrtec] 10 mg tablet 10 mg PO DAILY Qty: 90 RF: 3 sertraline 100 mg tablet 100 mg PO DAILY Qty: 90 RF: 3 clonazepam 1 mg tablet 1 mg PO BID PRN (Reason: anxiety) Qty: 60 RF: 5 simethicone 80 mg tablet,chewable 40 mg PO Q6H PRN PRNRF: 0 apixaban 5 mg tablet 5 mg PO BID Qty: 180 RF: 3 fluticasone propionate [Allergy Relief (fluticasone)] 50 mcg/actuation spr ay,suspension 1 spray MILLIECNT DAILY PRN (Reason: allergy symptoms) Qty: 9.9 RF: 11 mupirocin 2 % ointment 1 applic Topical BID PRN (Reason: impetigo) 10 Days Qty: 22 RF: 1 omeprazole 40 mg capsule,delayed release(DR/EC) 40 mg PO BID Qty: 60 RF: 12 Discharge Instructions Instructions: Abdominal Pain (ED) Additional Instructions: Drink plenty of fluids and get plenty of rest. Alternate tylenol and motrin as needed and directed for pain. Take the Pepcid for the next 2 weeks. Avoid spicy foods, chocolate, peppermint, alcohol, smoking or caffeine as this may contribute to heartburn or GERD. Follow-up with your primary care doctor in 1 week and for referral to surgery if your symptoms do not improve or worsen for consideration for endoscopy to rule out a possible ulcer or gastritis. Return to the emergency department with any worsening or new concerning symptoms. Referrals: Kate Awan MD [ [facility] STAFF PHYSICIAN] - Discharge Data Discharge Physician: Ai Hill Medical Decision Making 1900 -- 33-year-old male with a history of anxiety, bipolar disorder and GERD presents with constant sharp upper abdominal pain for the past 4 days. Denies any fever, vomiting, chest pain, shortness of breath, change in bowel or bladder habits, or urinary symptoms. He denies any smoking, alcohol or drug use. Patient has significant debilitating anxiety which limits his communication. Vitals within normal limits. He has right upper quadrant and epigastric tenderness. No left upper quadrant or right lower quadrant tenderness. Differential diagnosis includes peptic ulcer, GERD, gastritis, esophagitis, cholelithiasis, cholecystitis. Will place an IV, bolus IV fluids, Pepcid, Zofran, GI cocktail and obtain a CT abdomen pelvis. 2199 --labs and imaging reviewed. White blood cell count 13. Potassium 3.3. T bili 2.0. Normal liver enzymes. Troponin negative. Lipase normal. CT negative for any acute process but does note nonspecific bladder wall thickening which can be seen in cystitis. Patient denied any urinary symptoms. 2319 -- Urinalysis negative. Patient feels much better and is requesting to go home. Discussed that his symptoms could be due to peptic ulcer disease, GERD, gastritis, esophagitis. We will send with a prescription for Pepcid. He was given surgery contact information if needed. He is advised to follow-up with his primary care doctor and to return here with any concerns. Medical Records Medical records reviewed: Yes I reviewed the patient's medical records. Imaging Data Radiologic Study: Radiologist's impression: CT Abdomen And Pelvis With Contrast Exam date and time: 07/31/2019 8:52 PM Age: 33 years old Clinical indication: Abdominal pain; Patient HX: Upper abd pain; Epigastric/ruq tenderness; Additional info: R/O gallstones/pancreatitis TECHNIQUE: Imaging protocol: Computed tomography of the abdomen and pelvis with intravenous contrast. COMPARISON: No relevant prior studies available. FINDINGS: Lungs: Visualized lungs are clear. Liver: The liver is normal. Gallbladder and bile ducts: The gallbladder is normal. Pancreas: Normal. No ductal dilation. Spleen: Absent spleen. Splenules. Adrenals: The adrenal glands are normal. Kidneys and ureters: The kidneys are normal. Stomach and bowel: Unremarkable. No obstruction. No mucosal thickening. Appendix: The appendix is not definitely visualized. No secondary signs of appendicitis in the right lower quadrant. Intraperitoneal space: Unremarkable. No free air. No significant fluid collection. Vasculature: The aorta is normal. Lymph nodes: Unremarkable. No enlarged lymph nodes. Bladder: Incompletely distended bladder with circumferential wall thickening. Reproductive: Unremarkable as visualized. Bones/joints: Degenerative vacuum disc and disc height loss at L5-S1. Soft tissues: Unremarkable. IMPRESSION: 1. No CT findings to explain reported epigastric/right upper quadrant pain. 2. Nonspecific circumferential bladder wall thickening can be seen in the setting of cystitis. Recommend clinical correlation. Lab Data Lab results reviewed: Yes I reviewed the patient's lab results. Labs: Laboratory Tests Range/Units 07/31/19 07/31/19 20:20 20:20 WBC (4.4-10.8) k/cumm 13.52 H RBC (4.50-6.00) m/cumm 5.01 Hgb (13.5-17.5) g/dL 15.2 Hct (40.0-50.0) % 43.9 MCV (80-95) fL 87.6 MCH (27.0-33.0) pg 30.3 MCHC (32.0-36.0) g/dL 34.6 RDW (11.8-14.1) % 15.4 H Plt Count (130-400) x1000/uL 453 H MPV (8.0-11.0) fL 9.8 Immature Gran % % 0.2 Neutrophils % 49.8 Lymphocytes % 37.3 Monocytes % 10.7 Eosinophils % 1.8 Basophils % 0.2 Absolute Neutrophils (1.2-6.7) k/cumm 6.73 H Absolute Lymphocytes (1.2-3.4) k/cumm 5.04 H Absolute Monocytes (0.11-0.7) k/cumm 1.45 H Absolute Eosinophils (0.0-0.7) k/cumm 0.24 Absolute Basophils (0.0-0.2) k/cumm 0.03 Differential Comment Diff reviewed RBC Morphology Normal Sodium (136-145) mmol/L 140 Potassium (3.5-5.1) mmol/L 3.3 L Chloride (98-107) mmol/L 104 Carbon Dioxide (21.0-32.0) mmol/L 25.0 Anion Gap (3-11) mmol/L 11.0 BUN (7-18) mg/dL 13 Creatinine (0.70-1.30) mg/dL 1.07 Estimated GFR/1.73 m2 (mL/min/1.73m2) >= 60.00 Glucose (74-106) mg/dL 94 Calcium (8.5-10.1) mg/dL 9.1 Magnesium (1.8-2.4) mg/dL 1.8 Total Bilirubin (0.2-1.0) mg/dL 2.0 H AST (15-37) U/L 20 ALT (16-63) U/L 19 Alkaline Phosphatase (46-116) U/L 61 Troponin I (<0.06) ng/Ml < 0.05 Total Protein (6.4-8.2) g/dL 7.7 Albumin (3.4-5.0) g/dL 4.0 Lipase (73-393) U/L 88 HPI General Mode of arrival: ambulatory . Date/Time Provider Initiated Documentation: 07/31/19 18:55 . Limitations to Documentation: no limitations . Information obtained by: patient . History of Present Illness 33 year old M presents to the emergency department with the chief complaint of upper abdominal pain , Quality is described as sharp, and is localized to the abdomen. Patient reports no radiation. Patient started experiencing this day(s) (4) and it has been constant. No relieving factors improve symptom(s), No exacerbating factors reported . Patient notes denies fever/chills, loss of appetite, malaise, nausea/vomiting, rash, seizure, shortness of breath and syncope. Patient did receive the following treatments prior to arrival, none Related Data Home Medications Medication Instructions Recorded Confirmed clonazepam 1 mg tablet 1 mg PO BID PRN #60 tab 02/15/19 07/31/19 epinephrine 0.3 mg/0.3 mL 0.3 mg IJ DIRECTED PRN #2 kit 03/10/19 07/31/19 injection, auto-injector risperidone 0.25 mg tablet 0.25 mg PO BID #60 tab 03/10/19 07/31/19 simethicone 80 mg chewable tablet 40 mg PO Q6H PRN PRN tab 03/10/19 07/31/19 apixaban 5 mg tablet 5 mg PO BID #180 tab 04/04/19 07/31/19 fluticasone propionate 50 1 spray MILLICENT DAILY PRN #9.9 ml 06/09/19 07/31/19 mcg/actuation nasal spray,suspension cetirizine 10 mg tablet 10 mg PO DAILY #90 tab-cap 06/30/19 07/31/19 sertraline 100 mg tablet 100 mg PO DAILY #90 tab 06/30/19 07/31/19 mupirocin 2 % topical ointment 1 applic TOPICAL BID PRN 10 Days 07/03/19 07/31/19 #22 gm omeprazole 40 mg PO BID #60 cap 07/27/19 07/31/19 famotidine [Pepcid] 20 mg PO DAILY 14 Days #14 tab 07/31/19 Previous Rx's Medication Instructions Recorded clonazepam 1 mg tablet 1 mg PO BID PRN #60 tab 02/15/19 epinephrine 0.3 mg/0.3 mL 0.3 mg IJ DIRECTED PRN #2 kit 03/10/19 injection, auto-injector risperidone 0.25 mg tablet 0.25 mg PO BID #60 tab 03/10/19 apixaban 5 mg tablet 5 mg PO BID #180 tab 04/04/19 fluticasone propionate 50 1 spray MILLICENT DAILY PRN #9.9 ml 06/09/19 mcg/actuation nasal spray,suspension cetirizine 10 mg tablet 10 mg PO DAILY #90 tab-cap 06/30/19 sertraline 100 mg tablet 100 mg PO DAILY #90 tab 06/30/19 mupirocin 2 % topical ointment 1 applic TOPICAL BID PRN 10 Days 07/03/19 #22 gm omeprazole 40 mg PO BID #60 cap 07/27/19 famotidine [Pepcid] 20 mg PO DAILY 14 Days #14 tab 07/31/19 Allergies Allergy/AdvReac Type Severity Reaction Status Date / Time bacitracin Allergy Unverified 06/30/19 15:43 beer Allergy Severe Anaphylaxsi Uncoded 06/30/19 15:43 s unknown anphalyxis Allergy Severe Anaphylaxsi Uncoded 06/30/19 15:43 s General Stated Complaint: Abd Prob CONSTANCE: 3 Review of Systems All systems reviewed & are unremarkable except as noted in HPI and below Constitutional Constitutional: Reports as per HPI, Denies chills and Denies fever(s) Eyes Eyes: Denies blurry vision ENT Ears, Nose, Mouth, and Throat: Denies dizziness, Denies sore throat and Denies throat swelling Cardiovascular Cardiovascular: Denies chest pain and Denies dyspnea Respiratory Respiratory: Denies cough and Denies dyspnea Gastrointestinal Gastrointestinal: Reports abdominal pain, Denies diarrhea and Denies vomiting Genitourinary Genitourinary: Denies hematuria and Denies dysuria Musculoskeletal Musculoskeletal: Denies back pain and Denies numbness Integumentary/Breasts Skin/Breast: Denies lesions and Denies rash Neurologic Neurologic: Denies dizziness, Denies focal weakness and Denies numbness Allergic/Immunologic Allergic/Immunologic: Denies throat swelling [facility] Medical History Anxiety (Chronic) Bipolar disorder (Chronic) GERD with esophagitis (Acute) Surgical History H/O hernia repair (Chronic) Unspecified site, repaired x3 History of splenectomy (Resolved) Social History Smoking/Tobacco Use Status: Never Alcohol Intake: never Drug use: Never Substance use type: does not use Do you feel safe at home: Yes Do you feel safe in your relationship?: Yes Exam Const General: cooperative and no acute distress HENMT Head: normal to inspection Face and sinus: normal facial exam Eyes General: appearance normal, both eyes and all related structures EOM: EOM intact bilaterally Neck Neck: normal visual inspection and No submandibular swelling Lymphatic: no lymphadenopathy noted Chest Chest: normal inspection of the chest and no tenderness Resp Effort & Inspection: normal respiratory effort and able to speak in complete sentences Auscultation: clear to auscultation bilaterally Cardio Rate: regular rate Rhythm: regular rhythm GI Inspection: normal to inspection Palpation: soft, not firm, not rigid and tender in the epigastrum, in the LUQ and in the RUQ Auscultation: hypoactive bowel sounds Skin General skin exam: no rashes or lesions noted Neuro General: alert, awake and oriented x3 Cognition: normal cognition Speech: speech normal Motor: muscle tone normal throughout Sensory Exam: no sensory deficits noted Extrem General: normal to inspection, full ROM, normal capillary refill, no calf tenderness bilaterally and no edema Psych Appearance: grossly normal Mental Status: mental status grossly normal Speech and Movement: other (Significantly anxious, minimal communication) Mood: anxious mood Affect: anxious affect and blunted Course Vital Signs Vital signs: Vital Signs Temperature 97.9 F 07/31/19 18:48 Pulse 89 07/31/19 18:48 Respiratory Rate 22 07/31/19 18:48 Blood Pressure 140/75 07/31/19 18:48 Pulse Oximetry 96 07/31/19 18:48 Temperature 97.9 F 07/31/19 18:48 Temperature Source Skin 07/31/19 18:48 Pulse 89 07/31/19 18:48 Respiratory Rate 22 07/31/19 18:48 Blood Pressure 140/75 07/31/19 18:48 Blood Pressure Position Sitting 07/31/19 18:48 Pulse Oximetry 96 07/31/19 18:48 Oxygen Delivery Method Room Air 07/31/19 18:48 Oxygen Flow Rate 0 07/31/19 18:48
--- NOTE | 2019-07-31 19:59 | DI.CT_ITS ---
EXAM: CT ABDOMEN PELVIS W CLINICAL HISTORY: upper abd pain, epigastric/RUQ tenderness TECHNIQUE: Imaging Protocol: Axial computed tomography images with coronal and sagittal reformatted images were created and reviewed CONTRAST MATERIAL: Intravenous: Omnipaque 350 Contrast volume:100 mL Oral: No COMPARISON: CT CHEST PE CTA from 04/11/2019 FINDINGS: ABDOMEN: Lung Bases: Normal where visualized. Liver: Normal density. No measurable mass. Portal, Superior Mesenteric, and Splenic Veins: Unremarkable. Gallbladder and Biliary Tract: No radiodense calculus or dilation. Pancreas: Normal density, no abnormal calcifications or inflammatory process. Spleen: Absent spleen. Splenules are present. Adrenals: No masses seen. Kidneys: Normal size, contour and axis. No radiodense stones or obstructive uropathy. No masses seen. Abdominal Aorta: Abdominal portion non-dilated. Bowel: No obstruction or bowel wall thickening. Appendix not visualized. No findings to suggest acut e appendicitis. Peritoneal Cavity: No ascites, collection or mesenteric inflammatory response. Lymph Nodes: Within normal limits. Bones: Unremarkable. Soft Tissues: Unremarkable. PELVIS: Bladder: The bladder is incompletely distended. There is diffuse circumferential urinary bladder wal l thickening. Reproductive Organs: Unremarkable as visualized. Lymph Nodes: Within normal limits. Bones: Mild degenerative changes seen at L5-S1. IMPRESSION: 1. Nonspecific urinary bladder wall thickening. This can be seen with cystitis. 2. Otherwise no acute abdominal or pelvic process. DATA REPOSITORY: All CT scans at this facility are submitted to the National Radiology Data Registry (NRDR) Dose Index Registry (DIR) with the [employer] (A[employer]). RADIATION OPTIMIZATION: All CT scans at this facility use at least one of these dose optimization te chniques: automated exposure control; mA and/or kV adjustment per patient size (includes targeted exa ms where dose is matched to clinical indication); or iterative reconstruction.
[2019-07-31] MEDS: Ondansetron 4 MG/2 ML VIAL IVP (20:22)
[2019-07-31] MEDS: FAMOTIDINE 20 MG/50 ML BAG 200 MG IVPB (20:22)
[2019-07-31] MEDS: Normal Saline 1,000 ML 1000 ML IV (20:22)
[2019-07-31 20:24] LABS: Abs Immature Grans 0.03 k/cumm (0.0-0.09); Absolute Basophil Count 0.03 k/cumm (0.0-0.2); Absolute Lymphocyte Count 5.04 k/cumm (1.2-3.4); Absolute Monocyte Count 1.45 k/cumm (0.11-0.7); Basophils % 0.2; Eosinophils % 1.8; HCT 43.9 % (40.0-50.0); HGB 15.2 g/dL (13.5-17.5); Immature Grans % 0.2 %; Lymphocytes % 37.3; Mean Corp. HGB Concentration 34.6 g/dL (32.0-36.0); Mean Corpuscular Hemoglobin 30.3 pg (27.0-33.0); Mean Corpuscular Volume 87.6 fL (80-95); Mean Platelet Volume 9.8 fL (8.0-11.0); Monocytes % 10.7; Neutrophils % 49.8; Platelet Count 453 x1000/uL (130-400); RBC 5.01 m/cumm (4.50-6.00); RBC Distribution Width 15.4 % (11.8-14.1); White Blood Cell Count 13.52 k/cumm (4.4-10.8)
[2019-07-31 20:39] LABS: Absolute Eosinophil Count 0.24 k/cumm (0.0-0.7); Absolute Neutrophil Count 6.73 k/cumm (1.2-6.7)
[2019-07-31 20:43] LABS: ALT 19 U/L (16-63); AST 20 U/L (15-37); Alkaline Phosphatase 61 U/L (46-116); BUN 13 mg/dL (7-18); CREATININE 1.07 mg/dL (0.70-1.30); Calcium 9.1 mg/dL (8.5-10.1); Chloride 104 mmol/L (98-107); Glucose 94 mg/dL (74-106); Lipase 88 U/L (73-393); Magnesium 1.8 mg/dL (1.8-2.4); Potassium 3.3 mmol/L (3.5-5.1); Sodium 140 mmol/L (136-145); Total Protein 7.7 g/dL (6.4-8.2)
[2019-07-31 20:49] LABS: Troponin I < 0.05 ng/Ml (<0.06)
[2019-07-31] MEDS: Omnipaque 350 MG/ML 100 ML BTL IJ (21:00)
[2019-07-31 21:03] LABS: Diff Comment Diff Reviewed; RBC Morphology Normal
--- NOTE | 2019-07-31 21:32 | DI.VRAD_ITS ---
PROCEDURE INFORMATION: Exam: CT Abdomen And Pelvis With Contrast Exam date and time: 07/31/2019 8:52 PM Age: 33 years old Clinical indication: Abdominal pain; Patient HX: Upper abd pain; Epigastric/ruq tenderness; Additional info: R/O gallstones/pancreatitis TECHNIQUE: Imaging protocol: Computed tomography of the abdomen and pelvis with intravenous contrast. COMPARISON: No relevant prior studies available. FINDINGS: Lungs: Visualized lungs are clear. Liver: The liver is normal. Gallbladder and bile ducts: The gallbladder is normal. Pancreas: Normal. No ductal dilation. Spleen: Absent spleen. Splenules. Adrenals: The adrenal glands are normal. Kidneys and ureters: The kidneys are normal. Stomach and bowel: Unremarkable. No obstruction. No mucosal thickening. Appendix: The appendix is not definitely visualized. No secondary signs of appendicitis in the right lower quadrant. Intraperitoneal space: Unremarkable. No free air. No significant fluid collection. Vasculature: The aorta is normal. Lymph nodes: Unremarkable. No enlarged lymph nodes. Bladder: Incompletely distended bladder with circumferential wall thickening. Reproductive: Unremarkable as visualized. Bones/joints: Degenerative vacuum disc and disc height loss at L5-S1. Soft tissues: Unremarkable. IMPRESSION: 1. No CT findings to explain reported epigastric/right upper quadrant pain. 2. Nonspecific circumferential bladder wall thickening can be seen in the setting of cystitis. Recommend clinical correlation. Dictated and Authenticated by: Ty Bauman MD. Ordering:CONY Cloud MD
[2019-07-31 23:16] LABS: Bilirubin Negative (Negative); Blood Negative (Negative); Clarity Clear (Clear); Glucose Negative (Negative); Ketones Negative (Negative); Leukocyte Esterase Negative (Negative); Nitrite Negative (Negative); Urobilinogen 0.2 EU/dL (Up TO 0.2); pH 6.5 (5-8)
--- NOTE | 2019-07-31 23:46 | NUR.NOTE ---
IV removed. DIscharge instructions reviewed with Freda nursing comfort station supervisor. declined final VS. Ambulated to exit with steady gait.
== END 2019-07-31 23:40 | disposition home or self-care (01) ==
PROVIDERS: Emergency Provider Physician Assistant; PCP Family Medicine
DX: R10.13 Epigastric pain (principal); R10.11 Right upper quadrant pain; F41.9 Anxiety disorder, unspecified; R93.41 Abnormal radiologic findings on diagnostic imaging of renal pelvis, ureter, or bladder; F31.9 Bipolar disorder, unspecified; K21.0 Gastro-esophageal reflux disease with esophagitis
CPT/HCPCS: 36415; 80053; 83690; 96361; 96374; 96375; 99285; 74177; 81003; 83735; 84484; 85025; J2405; J3490

== ENCOUNTER 2019-10-14 12:19 | Emergency (ER) | payer MEDICARE, MEDICAID, SELFPAY ==
[2019-10-14] VITALS (10 sets, daily range): BP systolic 108–153; BP diastolic 46–81; PULSE 62–84; RESP 22–60; TEMP 36.6–37.1; O2SAT 91–98
--- NOTE | 2019-10-14 12:45 | DI.CT_ITS ---
EXAM: CT ABDOMEN PELVIS W CLINICAL HISTORY: RLQ abdominal pain COMPARISON: CT ABDOMEN PELVIS W from 07/31/2019 FINDINGS: CT examination of the abdomen and pelvis was performed with a bolus infusion of 100 cc of Omnipaque 3 50. Images obtained through the lung bases are unremarkable. The liver is unremarkable in appearanc e. There appears to been a prior splenectomy. Gallbladder and bile ducts are unremarkable. Pancrea tic tail appears absent, otherwise the pancreas is unremarkable. There is an IVC filter in place. Abdominal aorta is of normal diameter and major branches appear intact. No significant abdominal wal l hernia. No significant abdominal or pelvic adenopathy. A splenule is present in the left upper qu adrant. Appendix is normal. No evidence of bowel obstruction or diverticulitis. Adrenals appear normal bilaterally. There is mild bilateral hydronephrosis and hydroureter and a mar kedly distended urinary bladder. The mild hydronephrosis and hydroureter may be due to bladder diste ntion. No urinary tract calcification. IMPRESSION: Marked urinary bladder distention, question bladder outlet obstruction, presumed mild bilateral hydro nephrosis and hydroureter secondary to distended bladder.
--- NOTE | 2019-10-14 12:51 | W.ED.GENAD ---
Discharge Plan Disposition Patient Disposition: HOME Condition: Stable Discharge Details Chief Complaint: Abd Prob Clinical Impression: Abdominal pain in male Primary Care Provider: José Miguel Flores ED Provider: Amanda Diego Trenton Meds and New Rx's Prescriptions: No Action epinephrine 0.3 mg/0.3 mL auto-injector 0.3 mg IJ DIRECTED PRN (Reason: Anaphylaxis) Qty: 2 RF: 0 risperidone [Risperdal] 0.25 mg tablet 0.25 mg PO BID Qty: 60 RF: 11 cetirizine [Zyrtec] 10 mg tablet 10 mg PO DAILY Qty: 90 RF: 3 sertraline 100 mg tablet 100 mg PO DAILY Qty: 90 RF: 3 famotidine [Pepcid] 20 mg tablet 20 mg PO DAILY Qty: 90 RF: 3 simethicone 80 mg tablet,chewable 40 mg PO Q6H PRN PRNRF: 0 apixaban 5 mg tablet 5 mg PO BID Qty: 180 RF: 3 fluticasone propionate [Allergy Relief (fluticasone)] 50 mcg/actuation spray,suspension 1 spray MILLICENT DAILY PRN (Reason: allergy symptoms) Qty: 9.9 RF: 11 tramadol 50 mg tablet 50 mg PO Q6H PRN (Reason: pain) Qty: 12 RF: 0 clonazepam 1 mg tablet 1 mg PO BID PRN (Reason: anxiety) Qty: 60 RF: 5 mupirocin 2 % ointment 1 applic Topical BID PRN (Reason: impetigo) 10 Days Qty: 22 RF: 1 acetaminophen [Tylenol Extra Strength] 500 mg tablet 1,000 mg PO TID PRN (Reason: pain/fever) Qty: 270 RF: 1 tamsulosin [Flomax] 0.4 mg capsule 0.4 mg PO DAILY RF: 0 triamcinolone acetonide 0.1 % cream 1 applic TP BID Qty: 30 RF: 1 hydrocortisone 2.5 % ointment 1 applic TP BID PRN (Reason: neck rash) Qty: 28.35 RF: 1 omeprazole 40 mg capsule,delayed release(DR/EC) 40 mg PO BID Qty: 60 RF: 12 Discharge Instructions Instructions: Abdominal Pain (ED) Additional Instructions: Follow up with primary care provider in 3-5 days. Return to ED sooner if any worsening or concerns. Increase oral fluids. Please take Tylenol or Ibuprofen with food every 4-6 hours as needed for pain and swelling. Please return if any worsening pain, problems urinating, fever nausea vomiting or diarrhea. Referrals: José Miguel Flores [Primary Care Provider] - Discharge Data Discharge Date/Time-TO BE ENTERED AT DEPARTURE: 10/14/19 14:55 Medical Decision Making 1352: Patient is received 1 mg lorazepam IV, 4 mg of morphine, 4 mg of Zofran IV he returns at this time from CT he appears much more comfortable breathing has slowed. He appears much less anxious. Awaiting CT results. PROCEDURE INFORMATION: Exam: CT Abdomen And Pelvis With Contrast Exam date and time: 10/14/2019 12:49 PM Age: 33 years old Clinical indication: Abdominal pain TECHNIQUE: Imaging protocol: Computed tomography of the abdomen and pelvis with intravenous contrast. COMPARISON: CT ABDOMEN PELVIS W 07/31/2019 8:55 PM FINDINGS: Liver: Normal. No mass. Gallbladder and bile ducts: Normal. No calcified stones. No ductal dilation. Pancreas: The tail of the pancreas is absent. Spleen: Absence of the spleen Adrenals: Normal. No mass. Kidneys and ureters: Mild dilatation of both collecting systems and both ureters may be secondary to the distended bladder. Stomach and bowel: Unremarkable. No obstruction. No mucosal thickening. Appendix: No evidence of appendicitis. Intraperitoneal space: Unremarkable. No free air. No significant fluid collection. Vasculature: Inferior vena cava filter distal to the renal veins Lymph nodes: Unremarkable. No enlarged lymph nodes. Bladder: Grossly Distended bladder. 17 by 13 cm Reproductive: Unremarkable as visualized. Bones/joints: Unremarkable. No acute fracture. Soft tissues: Unremarkable. Page 2 of 2 IMPRESSION: 1. Grossly Distended bladder. 2. Mild dilatation of both collecting systems and both ureters may be secondary to the distended bladder. Recommend follow-up studies to document resolution Thank you for allowing us to participate in the care of your patient. Dictated and Authenticated by: Mukesh Harley MD CT shows grossly distended bladder, no evidence of appendicitis, dilation of both collecting systems and both ureters. Patient did empty his bladder upon arrival return to department from CT. 1412: Genitourinary exam performed with RN witness Tonia at bedside. No evidence of testicular torsion, no lesions discharge noted no erythema or swelling noted to the scrotal sac. Exam was uncomfortable for patient. Repeat Lactate ordered s/p 1 Liter of NS. At this time it is unclear of cause for patient's symptoms. 1437: Repeat lactate is 0.6 which is largely improved. This time is unknown for patient's symptoms. Differential diagnosis noted below. Discussed CT results and labs with patient verbalized understanding. Patient ambulatory upon discharge. Differential diagnosis includes but not limited to early appendicitis, gastroenteritis, urinary retention, muscle strain, inguinal hernia, testicular torsion. Lab Data Lab results reviewed: Yes I reviewed the patient's lab results. HPI General Mode of arrival: ambulatory. Date/Time Provider Initiated Documentation: 10/14/19 12:20. Limitations to Documentation: altered mental status. Information obtained by: patient. HPI Narrative: 33-year-old male presents with right lower quadrant abdominal/groin pain which began yesterday. He has a history of crippling anxiety and is mostly nonverbal, stutters, and upon initial presentation is extremely diaphoretic, hyperventilating,and anxious. He does have a history of splenectomy, hernia repair anxiety, bipolar and GERD. He does take clonazepam 1 mg which he did take prior to arrival. Related Data Home Medications Medication Instructions Recorded Confirmed epinephrine 0.3 mg/0.3 mL 0.3 mg IJ DIRECTED PRN #2 kit 03/10/19 10/14/19 injection, auto-injector risperidone 0.25 mg tablet 0.25 mg PO BID #60 tab 03/10/19 10/14/19 simethicone 80 mg chewable tablet 40 mg PO Q6H PRN PRN tab 03/10/19 08/02/19 apixaban 5 mg tablet 5 mg PO BID #180 tab 04/04/19 10/14/19 fluticasone propionate 50 1 spray MILLICENT DAILY PRN #9.9 ml 06/09/19 10/14/19 mcg/actuation nasal spray,suspension cetirizine 10 mg tablet 10 mg PO DAILY #90 tab-cap 06/30/19 10/14/19 sertraline 100 mg tablet 100 mg PO DAILY #90 tab 06/30/19 10/14/19 omeprazole 40 mg PO BID #60 cap 07/27/19 10/14/19 famotidine 20 mg tablet 20 mg PO DAILY #90 tab 08/02/19 10/14/19 acetaminophen 500 mg tablet 1,000 mg PO TID PRN #270 tab 09/13/19 10/14/19 clonazepam 1 mg tablet 1 mg PO BID PRN #60 tab 09/13/19 10/14/19 mupirocin 2 % topical ointment 1 applic TOPICAL BID PRN 10 Days 09/13/19 #22 gm tramadol 50 mg tablet 50 mg PO Q6H PRN #12 tab 09/13/19 10/14/19 tamsulosin 0.4 mg capsule 0.4 mg PO DAILY 09/15/19 10/14/19 triamcinolone acetonide 0.1 % 1 applic TP BID #30 gm 10/06/19 10/14/19 topical cream hydrocortisone 2.5 % topical 1 applic TP BID PRN #28.35 gm 10/13/19 10/14/19 ointment Previous Rx's Medication Instructions Recorded epinephrine 0.3 mg/0.3 mL 0.3 mg IJ DIRECTED PRN #2 kit 03/10/19 injection, auto-injector risperidone 0.25 mg tablet 0.25 mg PO BID #60 tab 03/10/19 apixaban 5 mg tablet 5 mg PO BID #180 tab 04/04/19 fluticasone propionate 50 1 spray MILLICENT DAILY PRN #9.9 ml 06/09/19 mcg/actuation nasal spray,suspension cetirizine 10 mg tablet 10 mg PO DAILY #90 tab-cap 06/30/19 sertraline 100 mg tablet 100 mg PO DAILY #90 tab 06/30/19 omeprazole 40 mg PO BID #60 cap 07/27/19 famotidine 20 mg tablet 20 mg PO DAILY #90 tab 08/02/19 acetaminophen 500 mg tablet 1,000 mg PO TID PRN #270 tab 09/13/19 clonazepam 1 mg tablet 1 mg PO BID PRN #60 tab 09/13/19 mupirocin 2 % topical ointment 1 applic TOPICAL BID PRN 10 Days 09/13/19 #22 gm tramadol 50 mg tablet 50 mg PO Q6H PRN #12 tab 09/13/19 triamcinolone acetonide 0.1 % 1 applic TP BID #30 gm 10/06/19 topical cream hydrocortisone 2.5 % topical 1 applic TP BID PRN #28.35 gm 10/13/19 ointment Allergies Allergy/AdvReac Type Severity Reaction Status Date / Time bacitracin Allergy Unverified 10/14/19 12:33 beer Allergy Severe Anaphylaxsi Uncoded 10/14/19 12:33 s unknown anphalyxis Allergy Severe Anaphylaxsi Uncoded 10/14/19 12:33 s General Stated Complaint: Abd Prob CONSTANCE: 3 Review of Systems Narrative: Review of systems is somewhat limited due to patient's mental status. Constitutional: normal body habitus, appears anxious and uncomfortable. HEENT: Denies trauma, headaches, blurry vision, nasal discharge, sore throat, trouble swallowing. Chest: Denies chest pain, palpitations, irregular rhythm, hypertension. Respiratory: Denies Shortness of breath, cough, hemoptysis. GI: Denies nausea, vomiting, diarrhea, constipation. Positive right lower quadrant abdominal pain. : Denies flank pain, rectal bleeding. Reports right groin pain questionable right testicular pain. Neuro: Mostly nonverbal, avoids eye contact history of bipolar and anxiety.. Hematologic: Denies easy bruising, intolerance to heat or cold, hair loss. Unobtainable due to mental condition Psychiatric Psychiatric: Reports panic attacks [facility] Medical History Anxiety (Chronic) Bipolar disorder (Chronic) GERD with esophagitis (Acute) Surgical History H/O hernia repair (Chronic) Unspecified site, repaired x3 History of splenectomy (Resolved) Social History Smoking/Tobacco Use Status: Never Alcohol Intake: never Drug use: Never Substance use type: does not use Do you feel safe at home: Yes Do you feel safe in your relationship?: Yes Exam Narrative Exam Narrative: Constitutional: Appears extremely anxious, mostly nonverbal, avoids eye contact. Is diaphoretic upon arrival Head: Normocephalic, no trauma. Eyes: Pupils PERRLA, Red reflex noted, EOM's intact. Eyelids symmetrical without lesions, discharge, or swelling. ENT: Bilateral TM's WNL, External ear normal to inspection, no mastoid TTP, swelling, or erythema, Nasal turbinates WNL, no nasal discharge. Normal dentition, Posterior pharynx WNL, no exudate. Chest: RRR, Normal S1, S2, distal pulses intact. Resp: Lungs clear to auscultation bilaterally, no wheezes, rales, or rhonchi. tachypneic. Abdomen: Tender to palpation right lower quadrant. : Patient is refusing genitourinary exam at this time. Musculoskeletal: Normal gait, 5/5 strength to all four extremities. Skin: No suspicious rashes or lesions. Capillary refill less than 2 sec. has an old horizontal scar noted anterior neck, he is extremely diaphoretic. Neurologic: He is able to answer my questions some difficulty. Hematologic/Lymphatic: No ecchymosis, no lymphadenopathy. Course Vital Signs Vital signs: Vital Signs Temperature 36.6 C 10/14/19 12:25 Pulse 73 10/14/19 12:25 Respiratory Rate 60 H 10/14/19 12:25 Blood Pressure 153/70 H 10/14/19 12:25 Pulse Oximetry 98 10/14/19 12:25 Temperature 36.6 C 10/14/19 12:25 Temperature Source Skin 10/14/19 12:25 Pulse 73 10/14/19 12:25 Respiratory Rate 60 H 10/14/19 12:25 Blood Pressure 153/70 H 10/14/19 12:25 Blood Pressure Position Supine 10/14/19 12:25 Pulse Oximetry 98 10/14/19 12:25 Pain Level 9 10/14/19 12:25
[2019-10-14] MEDS: Normal Saline 1,000 ML 1000 ML IV (12:56)
[2019-10-14] MEDS: LORazepam 2 MG/ML VIAL 1 MG IVP (12:56)
[2019-10-14 12:58] LABS: Lactate 1.5 mmol/L (0.6-1.4)
[2019-10-14 13:00] LABS: HCT 44.2 % (40.0-50.0); HGB 14.7 g/dL (13.5-17.5); Mean Corp. HGB Concentration 33.3 g/dL (32.0-36.0); Mean Corpuscular Hemoglobin 30.9 pg (27.0-33.0); Mean Corpuscular Volume 93.1 fL (80-95); Mean Platelet Volume 9.8 fL (8.0-11.0); Platelet Count 412 x1000/uL (130-400); RBC 4.75 m/cumm (4.50-6.00); RBC Distribution Width 15.3 % (11.8-14.1); White Blood Cell Count 12.02 k/cumm (4.4-10.8)
[2019-10-14] MEDS: Ondansetron 4 MG/2 ML VIAL IVP (13:08)
[2019-10-14 13:16] LABS: ALT 32 U/L (16-63); AST 25 U/L (15-37); Absolute Eosinophil Count 0.24 k/cumm (0.0-0.7); Absolute Lymphocyte Count 5.77 k/cumm (1.2-3.4); Absolute Monocyte Count 1.56 k/cumm (0.11-0.7); Absolute Neutrophil Count 4.45 k/cumm (1.2-6.7); Alkaline Phosphatase 90 U/L (46-116); Anion Gap 9.7 mmol/L (3-11); Anisocytosis 1+; Atypical Lymphocytes % 6; BUN 10 mg/dL (7-18); Bilirubin, Total 1.4 mg/dL (0.2-1.0); CO2 26.3 mmol/L (21.0-32.0); CREATININE 1.03 mg/dL (0.70-1.30); Calcium 8.9 mg/dL (8.5-10.1); Chloride 104 mmol/L (98-107); Diff Comment Manual Differential; Glucose 103 mg/dL (74-106); Lipase 133 U/L (73-393); Magnesium 1.8 mg/dL (1.8-2.4); Polychromasia Present; Potassium 3.4 mmol/L (3.5-5.1); Sodium 140 mmol/L (136-145); Total Protein 8.2 g/dL (6.4-8.2)
[2019-10-14] MEDS: Omnipaque 350 MG/ML 100 ML BTL IJ (13:49)
[2019-10-14 14:00] LABS: Bilirubin Negative (Negative); Blood Negative (Negative); Clarity Clear (Clear); Glucose Negative (Negative); Ketones Negative (Negative); Leukocyte Esterase Negative (Negative); Nitrite Negative (Negative); Urobilinogen 0.2 EU/dL (Up TO 0.2)
--- NOTE | 2019-10-14 14:04 | DI.VRAD_ITS ---
PROCEDURE INFORMATION: Exam: CT Abdomen And Pelvis With Contrast Exam date and time: 10/14/2019 12:49 PM Age: 33 years old Clinical indication: Abdominal pain TECHNIQUE: Imaging protocol: Computed tomography of the abdomen and pelvis with intravenous contrast. COMPARISON: CT ABDOMEN PELVIS W 07/31/2019 8:55 PM FINDINGS: Liver: Normal. No mass. Gallbladder and bile ducts: Normal. No calcified stones. No ductal dilation. Pancreas: The tail of the pancreas is absent. Spleen: Absence of the spleen Adrenals: Normal. No mass. Kidneys and ureters: Mild dilatation of both collecting systems and both ureters may be secondary to the distended bladder. Stomach and bowel: Unremarkable. No obstruction. No mucosal thickening. Appendix: No evidence of appendicitis. Intraperitoneal space: Unremarkable. No free air. No significant fluid collection. Vasculature: Inferior vena cava filter distal to the renal veins Lymph nodes: Unremarkable. No enlarged lymph nodes. Bladder: Grossly Distended bladder. 17 by 13 cm Reproductive: Unremarkable as visualized. Bones/joints: Unremarkable. No acute fracture. Soft tissues: Unremarkable. IMPRESSION: 1. Grossly Distended bladder. 2. Mild dilatation of both collecting systems and both ureters may be secondary to the distended bladder. Recommend follow-up studies to document resolution Dictated and Authenticated by: Mukesh Harley MD. Ordering:KIRA Patel MD
[2019-10-14 14:29] LABS: Lactate 0.6 mmol/L (0.6-1.4)
== END 2019-10-14 14:55 | disposition home or self-care (01) ==
PROVIDERS: Emergency Provider Registered Nurse Emergency; PCP Family Medicine
DX: R10.31 Right lower quadrant pain (principal); R93.41 Abnormal radiologic findings on diagnostic imaging of renal pelvis, ureter, or bladder
CPT/HCPCS: 80053; 83690; 96361; 96374; 96375; 99285; 74177; 81003; 83605; 83735; 85025; 99284; J2060; J2405; J3490

== ENCOUNTER 2019-12-16 17:55 | Emergency (ER) | payer MEDICARE, MEDICAID, SELFPAY ==
[2019-12-16 18:02] VITALS: PULSE 102; O2SAT 93
[2019-12-16 18:32] VITALS: RESP 20
[2019-12-16 19:08] LABS: Bilirubin Negative (Negative); Blood Negative (Negative); Clarity Clear (Clear); Glucose Negative (Negative); Ketones Negative (Negative); Leukocyte Esterase Negative (Negative); Nitrite Negative (Negative); Specific Gravity >= 1.030 (1.005-1.025); Urobilinogen 0.2 EU/dL (Up TO 0.2)
--- NOTE | 2019-12-16 20:23 | ED.GENADUL_ITS ---
Discharge Plan Disposition Patient Disposition: HOME Condition: Stable Discharge Details Chief Complaint: GenMedical Clinical Impression: Dysuria Primary Care Provider: José Miguel Flores ED Provider: Yeyo Martinez Home Meds and New Rx's Prescriptions: No Action epinephrine 0.3 mg/0.3 mL auto-injector 0.3 mg IJ DIRECTED PRN (Reason: Anaphylaxis) Qty: 2 RF: 0 risperidone [Risperdal] 0.25 mg tablet 0.25 mg PO BID Qty: 60 RF: 11 cetirizine [Zyrtec] 10 mg tablet 10 mg PO DAILY Qty: 90 RF: 3 sertraline 100 mg tablet 100 mg PO DAILY Qty: 90 RF: 3 famotidine [Pepcid] 20 mg tablet 20 mg PO DAILY Qty: 90 RF: 3 simethicone 80 mg tablet,chewable 40 mg PO Q6H PRN PRNRF: 0 apixaban 5 mg tablet 5 mg PO BID Qty: 180 RF: 3 fluticasone propionate [Allergy Relief (fluticasone)] 50 mcg/actuation spray,suspension 1 spray MILLICENT DAILY PRN (Reason: allergy symptoms) Qty: 9.9 RF: 11 tramadol 50 mg tablet 50 mg PO Q6H PRN (Reason: pain) Qty: 12 RF: 0 clonazepam 1 mg tablet 1 mg PO BID PRN (Reason: anxiety) Qty: 60 RF: 5 tamsulosin [Flomax] 0.4 mg capsule 0.4 mg PO DAILY RF: 0 triamcinolone acetonide 0.1 % cream 1 applic TP BID Qty: 30 RF: 1 hydrocortisone 2.5 % ointment 1 applic TP BID PRN (Reason: neck rash) Qty: 28.35 RF: 1 acetaminophen [Tylenol Extra Strength] 500 mg tablet 1,000 mg PO TID PRN (Reason: pain/fever) Qty: 270 RF: 1 mupirocin 2 % ointment 1 applic Topical BID PRN (Reason: impetigo) 10 Days Qty: 22 RF: 1 pantoprazole 20 mg tablet,delayed release (DR/EC) 20 mg PO BID Qty: 180 RF: 3 Discharge Instructions Additional Instructions: Medication reconciliation could not be performed today. Please be sure to discuss your medications with your doctor. Urinalysis today did not reveal any infection. Please follow-up with your doctor. Please follow-up with your urologist. Call on Wednesday. Return to the emergency department for any worsening or new concerning symptoms including persistent erection and worsening pain. Referrals: José Miguel Flores [Primary Care Provider] - Discharge Data Discharge Date/Time-TO BE ENTERED AT DEPARTURE: 12/16/19 20:50 Medical Decision Making 34-year-old male severe debilitating anxiety, bipolar disorder, prior history of priapism requiring penile shunt, here with concern that he has had discoloration of the glans penis noted today. History and examination is somewhat limited given debilitating anxiety and difficulty communicating. Patient has partial erection with no skin discoloration or discharge on examination. Testes are normal. Patient is unsure as to how long he has had partial erection. He notes he does not currently have any pain. Urinalysis reviewed and not consistent with infection. Advised patient to relax at home and monitor condition closely. I advised that if erection does not resolve or worsens today, he should return for further evaluation. Patient was advised to return immediately for any worsening or new concerning symptoms. Patient was encouraged to follow-up with his urologist. HPI General Mode of arrival: ambulatory . Date/Time Provider Initiated Documentation: 12/16/19 18:32 . Limitations to Documentation: other (anxiety, poor historian) . HPI Narrative: 34-year-old male with past medical history significant for severe debilitating anxiety, preop physical requiring penile shunt last year, presents with chief complaint of skin discoloration of penis. History and review of systems is extremely difficult to obtain given his debilitating anxiety. From what able able to gather, patient is concerned that he has had some yellow and blue discoloration of his glans penis. Unclear as to how long this been going on but it seems to be a new problem. Patient notes associated pain described as burning with initiation of urination. Patient denies chest pain or shortness of breath. No abdominal pain. I did speak with the patient's sister who called and noted that she was concerned that her brother had expressed some discoloration today but she was not able to provide significant details. Related Data Home Medications Medication Instructions Recorded Confirmed epinephrine 0.3 mg/0.3 mL 0.3 mg IJ DIRECTED PRN #2 kit 03/10/19 10/14/19 injection, auto-injector risperidone 0.25 mg tablet 0.25 mg PO BID #60 tab 03/10/19 10/14/19 simethicone 80 mg chewable tablet 40 mg PO Q6H PRN PRN tab 03/10/19 08/02/19 apixaban 5 mg tablet 5 mg PO BID #180 tab 04/04/19 10/14/19 fluticasone propionate 50 1 spray MILLICENT DAILY PRN #9.9 ml 06/09/19 10/14/19 mcg/actuation nasal spray,suspension cetirizine 10 mg tablet 10 mg PO DAILY #90 tab-cap 06/30/19 10/14/19 sertraline 100 mg tablet 100 mg PO DAILY #90 tab 06/30/19 10/14/19 famotidine 20 mg tablet 20 mg PO DAILY #90 tab 08/02/19 10/14/19 clonazepam 1 mg tablet 1 mg PO BID PRN #60 tab 09/13/19 10/14/19 tramadol 50 mg tablet 50 mg PO Q6H PRN #12 tab 09/13/19 10/14/19 tamsulosin 0.4 mg capsule 0.4 mg PO DAILY 09/15/19 10/14/19 triamcinolone acetonide 0.1 % 1 applic TP BID #30 gm 10/06/19 10/14/19 topical cream hydrocortisone 2.5 % topical 1 applic TP BID PRN #28.35 gm 10/13/19 10/14/19 ointment acetaminophen 500 mg tablet 1,000 mg PO TID PRN #270 tab 11/15/19 mupirocin 2 % topical ointment 1 applic TOPICAL BID PRN 10 Days 11/15/19 #22 gm pantoprazole 20 mg tablet,delayed 20 mg PO BID #180 tab 12/12/19 release Previous Rx's Medication Instructions Recorded epinephrine 0.3 mg/0.3 mL 0.3 mg IJ DIRECTED PRN #2 kit 03/10/19 injection, auto-injector risperidone 0.25 mg tablet 0.25 mg PO BID #60 tab 03/10/19 apixaban 5 mg tablet 5 mg PO BID #180 tab 04/04/19 fluticasone propionate 50 1 spray MILLICENT DAILY PRN #9.9 ml 06/09/19 mcg/actuation nasal spray,suspension cetirizine 10 mg tablet 10 mg PO DAILY #90 tab-cap 06/30/19 sertraline 100 mg tablet 100 mg PO DAILY #90 tab 06/30/19 famotidine 20 mg tablet 20 mg PO DAILY #90 tab 08/02/19 clonazepam 1 mg tablet 1 mg PO BID PRN #60 tab 09/13/19 tramadol 50 mg tablet 50 mg PO Q6H PRN #12 tab 09/13/19 triamcinolone acetonide 0.1 % 1 applic TP BID #30 gm 10/06/19 topical cream hydrocortisone 2.5 % topical 1 applic TP BID PRN #28.35 gm 10/13/19 ointment acetaminophen 500 mg tablet 1,000 mg PO TID PRN #270 tab 11/15/19 mupirocin 2 % topical ointment 1 applic TOPICAL BID PRN 10 Days 11/15/19 #22 gm pantoprazole 20 mg tablet,delayed 20 mg PO BID #180 tab 12/12/19 release Allergies Allergy/AdvReac Type Severity Reaction Status Date / Time bacitracin Allergy Unverified 10/14/19 12:33 beer Allergy Severe Anaphylaxsi Uncoded 10/14/19 12:33 s unknown anphalyxis Allergy Severe Anaphylaxsi Uncoded 10/14/19 12:33 s General Stated Complaint: GenMedical CONSTANCE: 3 Review of Systems Unobtainable due to (Review of systems limited secondary to debilitating anxiety) Constitutional Constitutional: Denies fever(s) Cardiovascular Cardiovascular: Denies chest pain and Denies dyspnea Respiratory Respiratory: Denies dyspnea Gastrointestinal Gastrointestinal: Denies abdominal pain Genitourinary Genitourinary: Reports as per HPI, Denies oliguria, Reports dysuria, Denies penile discharge, Denies scrotal swelling, Denies urinary frequency and Reports other (Normal urinary stream) Integumentary/Breasts Comments: As per HPI, yellow and blue discoloration of penis PFSH Social History Smoking/Tobacco Use Status: Never Alcohol Intake: never Drug use: Never Substance use type: does not use Do you feel safe at home: Yes Do you feel safe in your relationship?: Yes Exam Const General: anxious Orientation: alert and awake HENMT Mouth: moist mucous membranes Eyes Conjunctivae: normal conjunctivae Resp Auscultation: clear to auscultation bilaterally, no rales, no rhonchi and no wheezes Cardio Jugular venous pressure: no JVD Rate: regular rate and not tachycardic Rhythm: regular rhythm GI Palpation: soft, not firm, no guarding, no masses, not rigid and nontender Male General Exam: No ecchymosis, No erythema, No inguinal lymphadenopathy and No lesions Penis: not erythematous, no papules and no vesicles Meatus: meatus normal Scrotum: scrotum normal and no masses Testes: normal and no epidiymal tenderness Other: Semierect penis Skin General skin exam: no rashes or lesions noted Neuro General: patient alert, patient awake and tone normal Extrem General: no edema Psych Speech and Movement: delayed speech Affect: anxious affect (Shaking, minimal communication, intermittently diaphoretic) Attitude: guarded Course Vital Signs Vital signs: Vital Signs Pulse 102 H 12/16/19 18:02 Pulse Oximetry 93 L 12/16/19 18:02 Pulse 102 H 12/16/19 18:02 Respiratory Rate 20 12/16/19 18:32 Respiratory Effort Non-Labored 12/16/19 18:32 Respiratory Depth Normal 12/16/19 18:32 Respiratory Pattern Normal 12/16/19 18:32 Blood Pressure Position Sitting 12/16/19 18:02 Pulse Oximetry 93 L 12/16/19 18:02 Oxygen Delivery Method Room Air 12/16/19 18:02 Oxygen Flow Rate 0 12/16/19 18:02 Lab/Test Results Lab/Test Results: Laboratory Tests Range/Units 12/16/19 19:00 Urine Color (Yellow) Yellow Urine Clarity (Clear) Clear Urine pH (5-8) 6.0 Ur Specific Gerald (1.005-1.025) >= 1.030 H Urine Protein (Negative) mg/dL Negative Urine Ketones (Negative) mg/dL Negative Urine Blood (Negative) Negative Urine Nitrite (Negative) Negative Urine Bilirubin (Negative) Negative Urine Urobilinogen (Up TO 0.2) EU/dL 0.2 Ur Leukocyte Esterase (Negative) Negative Urine Glucose (Negative) mg/dL Negative
== END 2019-12-16 20:50 | disposition home or self-care (01) ==
PROVIDERS: Emergency Provider Student in an Organized Health Care Education/Training Program; PCP Family Medicine
DX: R30.0 Dysuria (principal); F41.9 Anxiety disorder, unspecified; F31.9 Bipolar disorder, unspecified; F80.9 Developmental disorder of speech and language, unspecified; N48.30 Priapism, unspecified
CPT/HCPCS: 99282; 81003; 99283

== ENCOUNTER 2020-02-14 08:19 | Emergency (ER) | payer MEDICARE, MEDICAID, SELFPAY ==
[2020-02-14 08:20] VITALS: BP 146/99; PULSE 92; RESP 18; TEMP 36.8; O2SAT 95
--- NOTE | 2020-02-14 08:30 | DI.RAD_ITS ---
EXAM: XR CHEST 2V PA LATERAL CLINICAL HISTORY: Possible aspiration TECHNIQUE: 2D digital imaging was performed. COMPARISON: CR XR CHEST 2V PA LATERAL from 10/01/2018 FINDINGS: MEDIASTINUM: Normal. HEART: Normal. PULMONARY VASCULATURE: Normal. LUNGS: Clear. PLEURAL SPACE: No pleural effusion or pneumothorax. BONE:Normal. OTHER FINDINGS:No evidence of foreign body. IMPRESSION: No acute pulmonary findings. No evidence of foreign body. DATA REPOSITORY: RADIATION DOSE DELIVERED:
--- NOTE | 2020-02-14 08:30 | DI.RAD_ITS ---
EXAM: XR SOFT TISSUE NECK CLINICAL HISTORY: R/O foreign body. TECHNIQUE: 2D digital imaging was performed. COMPARISON: No exams were available for comparison FINDINGS: No foreign body is identified. The lateral view is somewhat limited due to overlap of patient should ers. The airway appears intact. No abnormal gas collections are seen. IMPRESSION: Unremarkable radiographs of the neck. No visible foreign body. DATA REPOSITORY: RADIATION DOSE DELIVERED:
--- NOTE | 2020-02-14 08:36 | ED.GENADUL_ITS ---
Discharge Plan Disposition Patient Disposition: HOME Condition: Stable Discharge Details Chief Complaint: ThroatFB Clinical Impression: Foreign body sensation in throat, Nausea Primary Care Provider: José Miguel Flores ED Provider: Amanda Diego Maskell Meds and New Rx's Prescriptions: No Action epinephrine 0.3 mg/0.3 mL auto-injector 0.3 mg IJ DIRECTED PRN (Reason: Anaphylaxis) Qty: 2 RF: 0 risperidone [Risperdal] 0.25 mg tablet 0.25 mg PO BID Qty: 60 RF: 11 cetirizine [Zyrtec] 10 mg tablet 10 mg PO DAILY Qty: 90 RF: 3 sertraline 100 mg tablet 100 mg PO DAILY Qty: 90 RF: 3 famotidine [Pepcid] 20 mg tablet 20 mg PO DAILY Qty: 90 RF: 3 simethicone 80 mg tablet,chewable 40 mg PO Q6H PRN PRNRF: 0 fluticasone propionate [Allergy Relief (fluticasone)] 50 mcg/actuation spray,suspension 1 spray MILLICENT DAILY PRN (Reason: allergy symptoms) Qty: 9.9 RF: 11 tramadol 50 mg tablet 50 mg PO Q6H PRN (Reason: pain) Qty: 12 RF: 0 clonazepam 1 mg tablet 1 mg PO BID PRN (Reason: anxiety) Qty: 60 RF: 5 tamsulosin [Flomax] 0.4 mg capsule 0.4 mg PO DAILY RF: 0 triamcinolone acetonide 0.1 % cream 1 applic TP BID Qty: 30 RF: 1 hydrocortisone 2.5 % ointment 1 applic TP BID PRN (Reason: neck rash) Qty: 28.35 RF: 1 acetaminophen [Tylenol Extra Strength] 500 mg tablet 1,000 mg PO TID PRN (Reason: pain/fever) Qty: 270 RF: 1 pantoprazole 20 mg tablet,delayed release (DR/EC) 20 mg PO BID Qty: 180 RF: 3 apixaban 5 mg tablet 5 mg PO BID Qty: 180 RF: 3 mupirocin 2 % ointment 1 applic Topical BID PRN (Reason: impetigo) 10 Days Qty: 22 RF: 5 Discharge Instructions Instructions: Esophageal Foreign Body (ED), Acute Nausea and Vomiting (ED) Additional Instructions: Follow up with primary care provider in 3-5 days. Return to ED sooner if any worsening or concerns. Increase oral fluids. Try soda. Return to the ER for fever, worsening sore throat, worsening trouble swallowing or any concerns. Try [id number] lidocaine spray as needed. Referrals: José Miguel Flores [Primary Care Provider] - Medical Decision Making 34-year-old male with a history of crippling anxiety presents to the ED ER with a chief complaint of foreign body sensation in his throat. Patient states that he ate a burrito this morning and felt that some got stuck in his throat began vomiting and unable to swallow fluids he does complain of throat pain. He is speaking in full sentences, no stridor lungs are clear to auscultation bilaterally. He is diaphoretic and appears very anxious upon initial exam. Posterior pharynx is slightly erythemic, uvula midline, gag reflex in tact. At this time history and physical is limited by patient condition. He is extremely anxious and refuses to take off his sweater, he is also diaphoretic. His oxygen saturation is within normal limits and he is speaking in full sentences however he is stuttering and is hard to understand what he saying. He is known to the department and is known to have crippling anxiety. He reports taking his regular medications as prescribed this a.m. EXAM: XR SOFT TISSUE NECK CLINICAL HISTORY: R/O foreign body. TECHNIQUE: 2D digital imaging was performed. COMPARISON: No exams were available for comparison FINDINGS: No foreign body is identified. The lateral view is somewhat limited due to overlap of patient shoulders. The airway appears intact. No abnormal gas collections are seen. IMPRESSION: Unremarkable radiographs of the neck. No visible foreign body. EXAM: XR CHEST 2V PA LATERAL CLINICAL HISTORY: Possible aspiration TECHNIQUE: 2D digital imaging was performed. COMPARISON: CR XR CHEST 2V PA LATERAL from 10/01/2018 FINDINGS: MEDIASTINUM: Normal. HEART: Normal. PULMONARY VASCULATURE: Normal. LUNGS: Clear. PLEURAL SPACE: No pleural effusion or pneumothorax. BONE:Normal. OTHER FINDINGS:No evidence of foreign body. IMPRESSION: No acute pulmonary findings. No evidence of foreign body. 53: Patient reevaluation, no further coughing or vomiting episodes noted. Patient states that the medicines helped somewhat. Will give a GI cocktail and discussed x-rays with patient, verbalized understanding. Plan is to discharge home with follow-up with primary care patient is okay with this plan and feels safe to be discharged home at this time. HPI General Mode of arrival: ambulatory . Date/Time Provider Initiated Documentation: 02/14/20 08:24 . Limitations to Documentation: physical limitation (Anxiety) . Information obtained by: patient . HPI Narrative: 34-year-old male with a history of crippling anxiety presents to the ED ER with a chief complaint of foreign body sensation in his throat. Patient states that he ate a burrito this morning and felt that some got stuck in his throat began vomiting and unable to swallow fluids he does complain of throat pain. He is speaking in full sentences, no stridor lungs are clear to auscultation bilaterally. He is diaphoretic and appears very anxious upon initial exam. Posterior pharynx is slightly erythemic, uvula midline, gag reflex in tact. Related Data Home Medications Medication Instructions Recorded Confirmed epinephrine 0.3 mg/0.3 mL 0.3 mg IJ DIRECTED PRN #2 kit 03/10/19 10/14/19 injection, auto-injector risperidone 0.25 mg tablet 0.25 mg PO BID #60 tab 03/10/19 10/14/19 simethicone 80 mg chewable tablet 40 mg PO Q6H PRN PRN tab 03/10/19 08/02/19 fluticasone propionate 50 1 spray MILLICENT DAILY PRN #9.9 ml 06/09/19 10/14/19 mcg/actuation nasal spray,suspension cetirizine 10 mg tablet 10 mg PO DAILY #90 tab-cap 06/30/19 10/14/19 sertraline 100 mg tablet 100 mg PO DAILY #90 tab 06/30/19 10/14/19 famotidine 20 mg tablet 20 mg PO DAILY #90 tab 08/02/19 10/14/19 clonazepam 1 mg tablet 1 mg PO BID PRN #60 tab 09/13/19 10/14/19 tramadol 50 mg tablet 50 mg PO Q6H PRN #12 tab 09/13/19 10/14/19 tamsulosin 0.4 mg capsule 0.4 mg PO DAILY 09/15/19 10/14/19 triamcinolone acetonide 0.1 % 1 applic TP BID #30 gm 10/06/19 10/14/19 topical cream hydrocortisone 2.5 % topical 1 applic TP BID PRN #28.35 gm 10/13/19 10/14/19 ointment acetaminophen 500 mg tablet 1,000 mg PO TID PRN #270 tab 11/15/19 pantoprazole 20 mg tablet,delayed 20 mg PO BID #180 tab 12/12/19 release apixaban 5 mg tablet 5 mg PO BID #180 tab 12/22/19 mupirocin 2 % topical ointment 1 applic TOPICAL BID PRN 10 Days 01/16/20 #22 gm Previous Rx's Medication Instructions Recorded epinephrine 0.3 mg/0.3 mL 0.3 mg IJ DIRECTED PRN #2 kit 03/10/19 injection, auto-injector risperidone 0.25 mg tablet 0.25 mg PO BID #60 tab 03/10/19 fluticasone propionate 50 1 spray MILLICENT DAILY PRN #9.9 ml 06/09/19 mcg/actuation nasal spray,suspension cetirizine 10 mg tablet 10 mg PO DAILY #90 tab-cap 06/30/19 sertraline 100 mg tablet 100 mg PO DAILY #90 tab 06/30/19 famotidine 20 mg tablet 20 mg PO DAILY #90 tab 08/02/19 clonazepam 1 mg tablet 1 mg PO BID PRN #60 tab 09/13/19 tramadol 50 mg tablet 50 mg PO Q6H PRN #12 tab 09/13/19 triamcinolone acetonide 0.1 % 1 applic TP BID #30 gm 10/06/19 topical cream hydrocortisone 2.5 % topical 1 applic TP BID PRN #28.35 gm 10/13/19 ointment acetaminophen 500 mg tablet 1,000 mg PO TID PRN #270 tab 11/15/19 pantoprazole 20 mg tablet,delayed 20 mg PO BID #180 tab 12/12/19 release apixaban 5 mg tablet 5 mg PO BID #180 tab 12/22/19 mupirocin 2 % topical ointment 1 applic TOPICAL BID PRN 10 Days 01/16/20 #22 gm Allergies Allergy/AdvReac Type Severity Reaction Status Date / Time bacitracin Allergy Unverified 10/14/19 12:33 beer Allergy Severe Anaphylaxsi Uncoded 10/14/19 12:33 s unknown anphalyxis Allergy Severe Anaphylaxsi Uncoded 10/14/19 12:33 s General CONSTANCE: 3 Review of Systems Narrative: Constitutional: Negative for weight loss, alert and oriented, well groomed, obese body habitus, appears extremely anxious. HEENT: Denies trauma, headaches, blurry vision, nasal discharge, positive sore throat and trouble swallowing. Chest: Denies chest pain, palpitations, irregular rhythm, hypertension. Respiratory: Denies Shortness of breath, hemoptysis. Positive cough from increased saliva. GI: Denies abdominal pain, diarrhea, constipation. Positive nausea vomiting. : Denies dysuria, hematuria, flank pain, rectal bleeding. Neuro: Denies dizziness, blurry vision, weakness, syncope, headache or facial numbness. Hematologic: Denies easy bruising, intolerance to heat or cold, hair loss. [facility] Medical History Anxiety (Chronic) Bipolar disorder (Chronic) GERD with esophagitis (Acute) Surgical History H/O hernia repair (Chronic) Unspecified site, repaired x3 History of splenectomy (Resolved) Social History Smoking/Tobacco Use Status: Never Alcohol Intake: never Drug use: Never Substance use type: does not use Do you feel safe at home: Yes Do you feel safe in your relationship?: Yes Exam Narrative Exam Narrative: Constitutional: Alert and oriented x3. Appears stated age. Obese body habitus. Stuttering, appears extremely anxious and diaphoretic. Head: Normocephalic, no trauma. Eyes: Pupils PERRLA, Red reflex noted, EOM's intact. Eyelids symmetrical without lesions, discharge, or swelling. ENT: Bilateral TM's WNL, External ear normal to inspection, no mastoid TTP, s welling, or erythema, Nasal turbinates WNL, no nasal discharge. Normal dentition, Posterior pharynx erythemic, no exudate. Uvula midline tonsils 2+ bilaterally. Chest: RRR, Normal S1, S2, distal pulses intact. Resp: Lungs clear to auscultation bilaterally, no wheezes, rales, or rhonchi. No stridor auscultated. Musculoskeletal: Normal gait, 5/5 strength to all four extremities. Skin: No suspicious rashes or lesions. Capillary refill less than 2 sec. Neurologic: Cranial nerves II-XII intact. Alert and oriented x 3. DTR's intact. Hematologic/Lymphatic: No ecchymosis, no lymphadenopathy.
[2020-02-14] MEDS: Ondansetron O.D.T. 4 MG TABEF PO (08:42)
[2020-02-14] MEDS: Dexamethasone 10 MG/ML VIAL PO (08:42)
[2020-02-14 10:03] VITALS: BP 135/86; PULSE 81; RESP 24; TEMP 36.6; O2SAT 95
== END 2020-02-14 10:06 | disposition home or self-care (01) ==
PROVIDERS: Emergency Provider Registered Nurse Emergency; PCP Family Medicine
DX: R09.89 Other specified symptoms and signs involving the circulatory and respiratory systems (principal); R11.2 Nausea with vomiting, unspecified; R07.0 Pain in throat; F41.9 Anxiety disorder, unspecified; F31.9 Bipolar disorder, unspecified
CPT/HCPCS: 99284; 70360; 71046; J1100

== ENCOUNTER 2020-03-01 19:32 | Emergency (ER) | payer MEDICARE, MEDICAID, SELFPAY ==
[2020-03-01 19:41] VITALS: BP 134/100; PULSE 81; RESP 36; TEMP 36.9; O2SAT 99
--- NOTE | 2020-03-01 19:59 | W.ED.GENAD ---
Discharge Plan Disposition Patient Disposition: HOME Condition: Good Discharge Details Chief Complaint: SOB Clinical Impression: Anxiety, Acute hypokalemia, Chest pain Primary Care Provider: José Miguel Flores ED Provider: James Faria Home Meds and New Rx's Prescriptions: Continued epinephrine 0.3 mg/0.3 mL auto-injector 0.3 mg IJ DIRECTED PRN (Reason: Anaphylaxis) Qty: 2 RF: 0 risperidone [Risperdal] 0.25 mg tablet 0.25 mg PO BID Qty: 60 RF: 11 cetirizine [Zyrtec] 10 mg tablet 10 mg PO DAILY Qty: 90 RF: 3 sertraline 100 mg tablet 100 mg PO DAILY Qty: 90 RF: 3 famotidine [Pepcid] 20 mg tablet 20 mg PO DAILY Qty: 90 RF: 3 simethicone 80 mg tablet,chewable 40 mg PO Q6H PRN PRNRF: 0 fluticasone propionate [Allergy Relief (fluticasone)] 50 mcg/actuation spray,suspension 1 spray MILLICENT DAILY PRN (Reason: allergy symptoms) Qty: 9.9 RF: 11 tramadol 50 mg tablet 50 mg PO Q6H PRN (Reason: pain) Qty: 12 RF: 0 clonazepam 1 mg tablet 1 mg PO BID PRN (Reason: anxiety) Qty: 60 RF: 5 tamsulosin [Flomax] 0.4 mg capsule 0.4 mg PO DAILY RF: 0 triamcinolone acetonide 0.1 % cream 1 applic TP BID Qty: 30 RF: 1 hydrocortisone 2.5 % ointment 1 applic TP BID PRN (Reason: neck rash) Qty: 28.35 RF: 1 acetaminophen [Tylenol Extra Strength] 500 mg tablet 1,000 mg PO TID PRN (Reason: pain/fever) Qty: 270 RF: 1 pantoprazole 20 mg tablet,delayed release (DR/EC) 20 mg PO BID Qty: 180 RF: 3 apixaban 5 mg tablet 5 mg PO BID Qty: 180 RF: 3 mupirocin 2 % ointment 1 applic Topical BID PRN (Reason: impetigo) 10 Days Qty: 22 RF: 5 Discharge Instructions Instructions: Chest Pain (ED), Hypokalemia (ED) Additional Instructions: At this time your laboratory work-up does show that your potassium while initially very low has been notably improved. While still a tiny bit low I would recommend continuing foods rich in potassium at home like bananas 2-3 times per day for the next few days. Please drink plenty of fluids and stay well-hydrated. At this time through the work-up and repeat labs there is no evidence of heart attack, or other abnormality. As we discussed together the vena cava filter is still in place, and was not removed during the last visit at [facility]. Please follow-up closely with your specialist at [facility]. If you notice any worsening of your symptoms, or any new symptoms such as vomiting, diarrhea, fever, chills, shortness of breath, chest pain, numbness, weakness, or fainting , please return immediately to the emergency department for reevaluation. Please follow up with your primary care provider as soon as possible for reassessment and reevaluation. As always, it was a pleasure participating in your medical care today. Referrals: José Miguel Flores. [Primary Care Provider] - Medical Decision Making 34-year-old male with a past medical history of debilitating anxiety, bipolar, priapism's, hereditary spherocytosis GERD, IVC filter, PEs and DVTs, pulmonary artery hypertension, esophagitis, presents today by EMS for abdominal pain and chest pain. The patient's anxiety in emergent situations like this is nearly debilitating, and he unfortunately becomes a very challenging historian with significant difficulty speaking. Per EMS, and what I can gather from the patient he complains today about pain in his right lower quadrant of his abdomen as well as his chest. I cannot elicit any other modifying or relieving or aggravating factors. He is not able to clearly state whether or not he has been taking his anticoagulation today or the day before. He can provide no other pertinent details to history. Of note he normally does take apixaban for anticoagulation. Physical exam demonstrates right lower quadrant tenderness, no other focal tenderness that I can appreciate. Lung sounds are clear, calves are nontender, no vascular abnormalities in lower extremities. No genital or testicular tenderness. No evidence of priapism at this time. Differential is broad, and is certainly complicated by the currently challenging history. Vital signs demonstrate normal blood pressure and heart rate but notable tachypnea. Abdominal pain is concerning for evidence of potential appendicitis, less likely vascular abnormality. The patient's chest pain obviously is concerning for cardiac etiology PE from the upper extremities although this seems unlikely. We will get CT imaging of the chest and abdomen to rule out acute process, gently rehydrate, treat the patient's pain, attempt to quell his anxiety, monitor closely and reassess. 8:39 PM It is now come to our attention from the patient that he did recently have surgery on his IVC filter, uncertain of the exact etiology. We will search for medical records at other outlying facilities. But it does sound like that he has been taking the Eliquis since then. Surgery was Wednesday for the patient. This does enhance the concern for potential pulmonary embolism or clot. 8:56 PM Review of [facility] records indicate that the patient was scheduled for an appointment to get his IVC filter removed on 02/27/2020, however after multiple attempts they were unable to remove the IVC filter. There is otherwise no complications. 1 AM . Imaging studies have returned, and I purposely discussed the case with the radiologist and we in particular went over signs concerning for appendicitis, of which none were found per virtual radiology, additionally we reviewed the vasculature together to see if there is any postoperative complication and per virtual radiology none can be found, no acute process in the head chest or abdomen whatsoever. Repeat physical exam demonstrates resolution of previous symptoms, the patient appears to be back at his baseline, he is asking to go home multiple times. Your troponins and EKG negative for evidence of STEMI. CTA negative for evidence of PE. Repeat basic metabolic panel demonstrates notably improved potassium at 3.3 now. Patient is stable, magnesium stable. The patient's request for discharge he will be discharged home. I spent the last hour discussing the case in its entirety with the patient's sister who is at bedside to help with the patient. She feels comfortable with him going home as well. I also discussed the seizure note at [facility] that he still does have the IVC filter, they state that they were having difficulty contacting [facility] for discussions for further plans. They did specifically for the copied procedure report. This time with no evidence of STEMI, dissection, PE, pneumonia, no clinical evidence of meningitis, or radiographic evidence of mass the brain, or other systemic abnormalities to suggest an infectious etiology, see no indication for admission at this time. With the patient's symptoms relief, and signs and symptoms clinically inconsistent with ACS, feel he can be discharged home. Recommend continued potassium intake at home through natural foods. Discussed red flags which to return. I have extensively reviewed the treatment plan and discharge instructions with the patient and their family. I have addressed all patient concerns at this time. The patient and family was made aware of what symptoms to monitor for that would warrant a return to the emergency department. Discussed the plan with the patient and family, they demonstrate verbal understanding and agreement with our assessment and plan at this time. Additionally at time of discharge the patient is moving all extremities, he is able to verbalize with me, although slightly limited. However sister does feel that he is back towards his normal self. Also of note there is a notable difference between his interactions with myself, and his interactions with nursing staff and his sister. He seems to demonstrate a notable increase in anxiety when medical staff comes into the room. Family feels that this is consistent with previous anxiety components. EKG 20: 21 Rate 65, sinus rhythm, no significant ST elevations or depressions, no evidence of STEMI, there is a Q wave in lead II, III, and aVF. Q waves were present in previous EKG from 04/11/2019. HPI General Date/Time Provider Initiated Documentation: 03/01/20 19:38. HPI Narrative: 34-year-old male with a past medical history of debilitating anxiety, bipolar, priapism's, hereditary spherocytosis, GERD, IVC filter, PEs and DVTs, pulmonary artery hypertension, esophagitis, presents today by EMS for abdominal pain and chest pain. The patient's anxiety in emergent situations like this is nearly debilitating, and he unfortunately becomes a very challenging historian with significant difficulty speaking. Per EMS, and what I can gather from the patient he complains today about pain in his right lower quadrant of his abdomen as well as his chest. I cannot elicit any other modifying or relieving or aggravating factors. He is not able to clearly state whether or not he has been taking his anticoagulation today or the day before. He can provide no other pertinent details to history. Of note he normally does take apixaban for anticoagulation. Related Data Home Medications Medication Instructions Recorded Confirmed epinephrine 0.3 mg/0.3 mL 0.3 mg IJ DIRECTED PRN #2 kit 03/10/19 10/14/19 injection, auto-injector risperidone 0.25 mg tablet 0.25 mg PO BID #60 tab 03/10/19 10/14/19 simethicone 80 mg chewable tablet 40 mg PO Q6H PRN PRN tab 03/10/19 08/02/19 fluticasone propionate 50 1 spray MILLICENT DAILY PRN #9.9 ml 06/09/19 10/14/19 mcg/actuation nasal spray,suspension cetirizine 10 mg tablet 10 mg PO DAILY #90 tab-cap 06/30/19 10/14/19 sertraline 100 mg tablet 100 mg PO DAILY #90 tab 06/30/19 10/14/19 famotidine 20 mg tablet 20 mg PO DAILY #90 tab 08/02/19 10/14/19 clonazepam 1 mg tablet 1 mg PO BID PRN #60 tab 09/13/19 10/14/19 tramadol 50 mg tablet 50 mg PO Q6H PRN #12 tab 09/13/19 10/14/19 tamsulosin 0.4 mg capsule 0.4 mg PO DAILY 09/15/19 10/14/19 triamcinolone acetonide 0.1 % 1 applic TP BID #30 gm 10/06/19 10/14/19 topical cream hydrocortisone 2.5 % topical 1 applic TP BID PRN #28.35 gm 10/13/19 10/14/19 ointment acetaminophen 500 mg tablet 1,000 mg PO TID PRN #270 tab 11/15/19 pantoprazole 20 mg tablet,delayed 20 mg PO BID #180 tab 12/12/19 release apixaban 5 mg tablet 5 mg PO BID #180 tab 12/22/19 mupirocin 2 % topical ointment 1 applic TOPICAL BID PRN 10 Days 01/16/20 #22 gm Previous Rx's Medication Instructions Recorded epinephrine 0.3 mg/0.3 mL 0.3 mg IJ DIRECTED PRN #2 kit 03/10/19 injection, auto-injector risperidone 0.25 mg tablet 0.25 mg PO BID #60 tab 03/10/19 fluticasone propionate 50 1 spray MILLICENT DAILY PRN #9.9 ml 06/09/19 mcg/actuation nasal spray,suspension cetirizine 10 mg tablet 10 mg PO DAILY #90 tab-cap 06/30/19 sertraline 100 mg tablet 100 mg PO DAILY #90 tab 06/30/19 famotidine 20 mg tablet 20 mg PO DAILY #90 tab 08/02/19 clonazepam 1 mg tablet 1 mg PO BID PRN #60 tab 09/13/19 tramadol 50 mg tablet 50 mg PO Q6H PRN #12 tab 09/13/19 triamcinolone acetonide 0.1 % 1 applic TP BID #30 gm 10/06/19 topical cream hydrocortisone 2.5 % topical 1 applic TP BID PRN #28.35 gm 10/13/19 ointment acetaminophen 500 mg tablet 1,000 mg PO TID PRN #270 tab 11/15/19 pantoprazole 20 mg tablet,delayed 20 mg PO BID #180 tab 12/12/19 release apixaban 5 mg tablet 5 mg PO BID #180 tab 12/22/19 mupirocin 2 % topical ointment 1 applic TOPICAL BID PRN 10 Days 01/16/20 #22 gm Allergies Allergy/AdvReac Type Severity Reaction Status Date / Time bacitracin Allergy Unverified 10/14/19 12:33 beer Allergy Severe Anaphylaxsi Uncoded 10/14/19 12:33 s unknown anphalyxis Allergy Severe Anaphylaxsi Uncoded 10/14/19 12:33 s General Stated Complaint: SOB CONSTANCE: 2 Review of Systems All systems reviewed & are unremarkable except as noted in HPI and below PFSH Medical History Anxiety (Chronic) Bipolar disorder (Chronic) GERD with esophagitis (Acute) Surgical History H/O hernia repair (Chronic) Unspecified site, repaired x3 History of splenectomy (Resolved) Social History Smoking/Tobacco Use Status: Never Alcohol Intake: never Drug use: Never Substance use type: does not use Do you feel safe at home: Yes Do you feel safe in your relationship?: Yes Exam Narrative Exam Narrative: 1.Const: Well-nourished, Well-developed, appearing stated age 2.Eyes: PERRL, no conjunctival injection, and symmetrical lids. 3.ENT: Atraumatic external nose and ears. Dry MM. Neck: Symmetric, trachea midline, No thyromegaly. 4.CVS: +S1/S2, No murmurs or gallops. Peripheral pulses 2+ and equal in all extremities. Brisk capillary refill in all extremities. 5.RESP: Notably tachypneic, however clear to auscultation bilaterally with no wheezes rales or rhonchi. 6.GI: Soft, right lower quadrant tenderness, no voluntary guarding. No hepatosplenomegaly. 7.MSK: Normocephalic/Atraumatic, Extremities w/o deformity or ttp No cyanosis or clubbing, Normal movement of all extremities, no calf tenderness, no pitting edema, no unilateral swelling, no bruising. No vascular color changes. 8.Skin: Warm, Dry. No rashes or lesions. 9.Neuro: hair mixer II-XII grossly intact. Sensation grossly intact, no focal neurologic deficits. 10.Psych: Notably anxious, difficulty speaking not because of difficulty breathing but rather verbalization from mental status. Course Vital Signs Vital signs: Vital Signs Temperature 36.9 C 03/01/20 19:41 Pulse 81 03/01/20 19:41 Respiratory Rate 36 H 03/01/20 19:41 Blood Pressure 134/100 H 03/01/20 19:41 Pulse Oximetry 99 03/01/20 19:41 Temperature 36.9 C 03/01/20 19:41 Temperature Source Oral 03/01/20 19:41 Pulse 81 03/01/20 19:41 Respiratory Rate 36 H 03/01/20 19:41 Blood Pressure 134/100 H 03/01/20 19:41 Pulse Oximetry 99 03/01/20 19:41
--- NOTE | 2020-03-01 20:00 | RT.EKG_ITS ---
APPROVED REPORT Exam: Resting ECG Patient Location: E HR:65 bpm ECG Measurements Heart Rate 65 AXIS UT 188 P 61 QRSd 105 QRS 51 QT 406 T 60 QTc 422 Conclusion EKG 20: 21 Rate 65, sinus rhythm, no significant ST elevations or depressions, no evidence of STEMI, there is a Q wave in lead II, III, and aVF. Q waves were present in previous EKG from 04/11/2019.
[2020-03-01 20:30] VITALS: BP 122/82; PULSE 70; O2SAT 94
[2020-03-01] MEDS: Normal Saline 500 ML IV (20:30)
[2020-03-01 20:31] LABS: BE (Venous) 1 mmol/L (-2-3); HCO3 (Venous) 25 mmol/L (23-28); O2 Sat (Venous) 86 %; TCO2 (Venous) 22 mmol/L (24-29); pCO2 (Venous) 38 mmHg (41-51); pH (Venous) 7.44 (7.31-7.41); pO2 (Venous) 45 mmHg
[2020-03-01 20:33] LABS: Lactate 1.1 mmol/L (0.6-1.4)
[2020-03-01 20:37] LABS: Abs Immature Grans 0.02 10^3/uL (0.0-0.06); Absolute Basophil Count 0.04 10^3/uL (0.0-0.2); Absolute Eosinophil Count 0.25 10^3/uL (0.0-0.7); Absolute Lymphocyte Count 6.76 10^3/uL (1.2-3.4); Basophils % 0.3; Eosinophils % 1.7; HCT 42.2 % (40.0-50.0); HGB 14.1 g/dL (13.5-17.5); Immature Grans % 0.1; Lymphocytes % 46.3; MCH 30.1 pg (27.0-33.0); MCHC 33.4 % (32.0-36.0); MPV 9.9 fL (8.0-11.0); Monocytes % 10.1; Neutrophils % 41.5; Nucleated RBC 0 %; Platelet Count 450 10^3/uL (130-400); RBC 4.69 10^6/uL (4.36-5.78); RDW 14.6 % (11.8-14.1); RDW-SD 47.6 fL; WBC 14.61 10^3/uL (4.4-10.8)
[2020-03-01 20:39] LABS: Absolute Monocyte Count 1.48 10^3/uL (0.1-0.8); Absolute Neutrophil Count 6.06 10^3/uL (1.2-6.7)
[2020-03-01 20:47] LABS: PTT Activated 24.3 sec (21.0-31.4); Prothrombin Time 10.4 sec (9.3-11.0)
[2020-03-01 21:03] LABS: Diff Comment Agrees w/ Instrument; RBC Morphology Normal
[2020-03-01 21:10] LABS: ALT 23 U/L (16-63); AST 29 U/L (15-37); Albumin 4.1 g/dL (3.4-5.0); Alkaline Phosphatase 62 U/L (46-116); Anion Gap 12.2 mmol/L (3-11); BUN 14 mg/dL (7-18); Bilirubin, Total 2.2 mg/dL (0.2-1.0); CO2 24.8 mmol/L (21.0-32.0); Calcium 9.1 mg/dL (8.5-10.1); Chloride 100 mmol/L (98-107); Glucose 104 mg/dL (74-106); Lipase 78 U/L (73-393); NT-proBNP 42 pg/mL (<300); Sodium 137 mmol/L (136-145); TSH (W/Ref FT4) 4.49 uIU/mL (0.36-3.74); Total Protein 7.8 g/dL (6.4-8.2)
[2020-03-01 21:11] LABS: Potassium 2.7 mmol/L (3.5-5.1)
[2020-03-01] MEDS: Omnipaque 350 MG/ML 100 ML BTL IJ (21:16)
[2020-03-01] MEDS: Normal Saline Flush 10 ML SYR IVP (21:16)
[2020-03-01] MEDS: Omnipaque 350 MG/ML 50 ML BTL IJ (21:17)
[2020-03-01] MEDS: Normal Saline - Diluent 50 ML VIAL IV (21:18)
[2020-03-01 21:26] LABS: Troponin I < 0.05 ng/mL (<0.06)
[2020-03-01 21:28] LABS: FREE T4 1.08 ng/dL (0.76-1.46)
[2020-03-01 21:30] VITALS: BP 126/71; PULSE 71; O2SAT 25
[2020-03-01] MEDS: POTASSIUM CHLORIDE 20 MEQ/100 ML BAG 50 MEQ IVPB (21:30)
[2020-03-01] MEDS: Potassium Chloride 20 MEQ TABCR PO (21:30)
--- NOTE | 2020-03-01 21:30 | DI.CT_ITS ---
EXAM: CT CHEST PE ABD PELVIS W CLINICAL HISTORY: hx of PE's, has filter, now w/ CP, SOB. TECHNIQUE: Imaging Protocol: Axial CT angiography was performed with multi-slice acquisition and m ulti-planar and/or 3D reconstructions. CONTRAST MATERIAL: Intravenous: Omnipaque 350 Contrast volume:152 cc Oral: / no COMPARISON: CT CT ABDOMEN PELVIS W from 10/14/2019 FINDINGS: CHEST: Pulmonary Arteries: No evidence of filling defect to suggest pulmonary emboli. Tracheobronchial tree: Patent where visualized. Mediastinum and Lyn: No dominant adenopathy or fluid collection. Pulmonary parenchyma: No consolidation or dominant measurable mass. No architectural distortion. Pleura: No effusion or pneumothorax. Heart: The heart is not dilated. No coronary artery calcifications are seen. Aorta: Thoracic aorta non-dilated. Bones: Normal. ABDOMEN AND PELVIS: Abdomen: Celiac axis/mesenteric arteries: No evidence of occlusion or significant stenosis. Renal Arteries: No evidence of occlusion or significant stenosis. There is a single renal artery per fusing each kidney. Aorta: No evidence of occlusion or significant stenosis. No aneurysm or dissection. Pelvis: Iliac Arteries: No evidence of occlusion or significant stenosis. Common Femoral Arteries: No evidence of occlusion or significant stenosis. ABDOMEN: Liver: Normal density. No measurable mass. Portal, Superior Mesenteric, and Splenic Veins: Unremarkable. Gallbladder and Biliary Tract: No radiodense calculus or dilation. Pancreas: Normal density, no abnormal calcifications or inflammatory process. Spleen: Status post splenectomy. Small regenerative splenic nodule versus splenic remnant. Adrenals: No masses seen. Kidneys: Normal size, contour and axis. No radiodense stones or obstructive uropathy. No masses seen. Bowel: No obstruction or bowel wall thickening. Appendix is unremarkable. Peritoneal Cavity: No ascites, collection or mesenteric inflammatory response. Lymph Nodes: Within normal limits. Bones: Unremarkable. Soft Tissues: Unremarkable. IVC filter. PELVIS: Bladder: Symmetric distention, no gross wall thickening. Reproductive Organs: Unremarkable as visualized. Lymph Nodes: Within normal limits. Bones: Within normal limits. IMPRESSION: No evidence of pulmonary emboli or other acute abnormality in the chest, abdomen or pelvis. An IVC fi lter is seen. . RADIATION DOSE DELIVERED: Total DLP Total DLP DATA REPOSITORY: All CT scans at this facility are submitted to the National Radiology Data Registry (NRDR) Dose Index Registry (DIR) with the [employer] (ACR). RADIATION OPTIMIZATION: All CT scans at this facility use at least one of these dose optimization te chniques: automated exposure control; mA and/or kV adjustment per patient size (includes targeted exa ms where dose is matched to clinical indication); or iterative reconstruction.
--- NOTE | 2020-03-01 21:42 | DI.VRAD_ITS ---
Addendum created by Deven Daly MD on 03/01/2020 9:51:40 PM EDT: Additional clinical information obtained, right lower quadrant pain. Additional review demonstrates no evidence for acute abnormality in the right lower quadrant. Nonspecific mild thickening of the urinary bladder wall, correlate clinically to rule out UTI/cystitis. The findings were verbally communicated via telephone conference with NOHELIA ALDRICH at 9:51 PM EDT on 03/01/2020. The findings were acknowledged and understood. Initial report created on 03/01/2020 9:42:13 PM EDT: PROCEDURE INFORMATION: Exam: CT Angiography Chest With Contrast Exam date and time: 03/01/2020 8:08 PM Age: 34 years old Clinical indication: Other: HX of pe's, has filter, now w/cp, SOB TECHNIQUE: Imaging protocol: Computed tomographic angiography of the chest with intravenous contrast. 3D rendering (Not supervised by radiologist): MIP and/or 3D reconstructed images were created by the technologist. Radiation optimization: All CT scans at this facility use at least one of these dose optimization techniques: automated exposure control; mA and/or kV adjustment per patient size (includes targeted exams where dose is matched to clinical indication); or iterative reconstruction. Contrast material: OMNIPAQUE 350; Contrast volume: 152 ml; Contrast route: INTRAVENOUS (IV); COMPARISON: CT CHEST PE CTA 04/11/2019 5:17 PM FINDINGS: Pulmonary arteries: No pulmonary emboli. Aorta: No aortic aneurysm. No aortic dissection. Lungs: Nonspecific bilateral dependent pleuroparenchymal changes. Nonspecific dependent bibasilar ground-glass opacities. Pleural space: No pneumothorax. No pleural effusion. Heart: No cardiomegaly. No pericardial effusion. Lymph nodes: Unremarkable. No enlarged lymph nodes. Spleen: The spleen is not visualized. Bones/joints: Unremarkable. No acute fracture. Soft tissues: Unremarkable. Other findings: Somewhat limited evaluation of the distal segmental branches, grossly, no filling defects. IMPRESSION: No pulmonary emboli. PROCEDURE INFORMATION: Exam: CT Angiography Abdomen With Contrast Exam date and time: 03/01/2020 8:08 PM Age: 34 years old Clinical indication: Other: HX of pe's, has filter, now w/cp, SOB TECHNIQUE: Imaging protocol: Computed tomographic angiography images of the abdomen with intravenous contrast material. 3D rendering (Not supervised by radiologist): MIP and/or 3D reconstructed images were created by the technologist. Radiation optimization: All CT scans at this facility use at least one of these dose optimization techniques: automated exposure control; mA and/or kV adjustment per patient size (includes targeted exams where dose is matched to clinical indication); or iterative reconstruction. Contrast material: OMNIPAQUE 350; Contrast route: INTRAVENOUS (IV); COMPARISON: CT CHEST PE CTA 04/11/2019 5:17 PM FINDINGS: Aorta: No aortic aneurysm. No aortic dissection. Celiac trunk and mesenteric arteries: No occlusion or significant stenosis. Renal arteries: No occlusion or significant stenosis. Inferior vena cava: IVC filter in place. Liver: Normal. No mass. Gallbladder and bile ducts: Normal. No calcified stones. No ductal dilation. Pancreas: Normal. No ductal dilation. Spleen: The spleen is not identified. 1.5 centimetres focus of soft tissue in the left upper quadrant may represent a splenic remnant. Adrenals: Normal. No mass. Kidneys and ureters: Normal. No hydronephrosis. Stomach and bowel: Unremarkable. No obstruction. No mucosal thickening. Lymph nodes: Unremarkable. No enlarged lymph nodes. Intraperitoneal space: Unremarkable. No free air. No significant fluid collection. Bones/joints: Unremarkable. No acute fracture. No dislocation. Soft tissues: Unremarkable. IMPRESSION: IVC filter in place. Spleen is not identified. Dictated and Authenticated by: Deven Daly MD. Ordering:DONELL Ramirez MD
[2020-03-01 21:50] VITALS: BP 113/85; PULSE 71; RESP 16; O2SAT 96
[2020-03-01 22:16] LABS: Bilirubin Negative (Negative); Blood Negative (Negative); Clarity Clear (Clear); Glucose Negative (Negative); Ketones Negative (Negative); Leukocyte Esterase Negative (Negative); Nitrite Negative (Negative); Urobilinogen 0.2 EU/dL (Up TO 0.2); pH 6.5 (5-8)
--- NOTE | 2020-03-01 23:41 | DI.CT_ITS ---
EXAM: CT HEAD WO CLINICAL HISTORY: headache. TECHNIQUE: Imaging Protocol: Axial computed tomography images with coronal and sagittal reformatted images were created and reviewed COMPARISON: No exams were available for comparison FINDINGS: Ventricles and Extra axial spaces: Normal in size and morphology for the patient's age. Hemorrhage: None. Cerebral parenchyma: Normal. Midline shift: None. Brainstem/Cerebellum: Normal. Calvarium: Normal. Visualized Paranasal sinuses/Mastoids: Mucous retention cyst in the right maxillary sinus. Mild ethm oid mucous retention. Clear mastoids. Soft Tissues: Orbits are unremarkable. IMPRESSION: No acute intracranial process. RADIATION DOSE DELIVERED: Total DLP DATA REPOSITORY: All CT scans at this facility are submitted to the National Radiology Data Registry (NRDR) Dose Index Registry (DIR) with the [employer] (ACR). RADIATION OPTIMIZATION: All CT scans at this facility use at least one of these dose optimization te chniques: automated exposure control; mA and/or kV adjustment per patient size (includes targeted exa ms where dose is matched to clinical indication); or iterative reconstruction.
--- NOTE | 2020-03-01 23:52 | DI.VRAD_ITS ---
PROCEDURE INFORMATION: Exam: CT Head Without Contrast Exam date and time: 03/01/2020 11:34 PM Age: 34 years old Clinical indication: Pain; Headache not specified TECHNIQUE: Imaging protocol: Computed tomography of the head without contrast. Radiation optimization: All CT scans at this facility use at least one of these dose optimization techniques: automated exposure control; mA and/or kV adjustment per patient size (includes targeted exams where dose is matched to clinical indication); or iterative reconstruction. COMPARISON: No relevant prior studies available. FINDINGS: Brain: Cerebral sulci show bilateral symmetry with no supratentorial mass or mass effect detected. Brainstem and cerebellum are normal in appearance. No significant foci of abnormal increased or decreased attenuation are seen within the brain parenchyma. There is no evidence of acute infarct or intracranial hemorrhage. Intravascular contrast present related to recent enhanced chest CT. Ventricles: Ventricular and cisternal spaces are normal in size and configuration and there is no midline shift or hydrocephalus seen. Bones/joints: Bony calvarium and skull base are intact and no acute fractures are detected. Sinuses: There is soft tissue at the base of the right maxillary sinus with opacification also seen involving a few anterior left-sided ethmoid air cells and remaining paranasal sinuses are otherwise clear throughout. Mastoid air cells: Normally pneumatized and clear bilaterally. Soft tissues: Unremarkable. IMPRESSION: 1. Unremarkable examination with no evidence of an acute intracranial process. 2. Maxilloethmoidal sinus disease noted as above. Dictated and Authenticated by: Dale Lee MD. Ordering:DONELL Ramirez MD
[2020-03-02 00:31] LABS: BUN 13 mg/dL (7-18); CREATININE 1.05 mg/dL (0.70-1.30); Calcium 8.6 mg/dL (8.5-10.1); Chloride 103 mmol/L (98-107); Glucose 101 mg/dL (74-106); Potassium 3.3 mmol/L (3.5-5.1); Sodium 137 mmol/L (136-145)
[2020-03-02 00:44] LABS: Troponin I < 0.05 ng/mL (<0.06)
[2020-03-02 01:07] VITALS: PULSE 66; RESP 24; TEMP 37; O2SAT 96
[2020-03-02 01:18] VITALS: BP 114/74
== END 2020-03-02 01:00 | disposition home or self-care (01) ==
PROVIDERS: Emergency Provider Student in an Organized Health Care Education/Training Program; PCP Family Medicine
DX: E87.6 Hypokalemia (principal); R07.9 Chest pain, unspecified; F41.9 Anxiety disorder, unspecified; R10.31 Right lower quadrant pain; F31.9 Bipolar disorder, unspecified; Z95.828 Presence of other vascular implants and grafts
CPT/HCPCS: 36415; 71275; 74177; 80048; 80053; 82805; 83690; 93005; 96361; 96365; 96366; 96375; 99285; 70450; 81003; 83605; 83735; 83880; 84439; 84443; 84484; 85025; 85610; 85730; 93010; J3480; J3490; Q9967

== ENCOUNTER 2020-07-16 07:03 | Emergency (ER) | payer MEDICARE, MEDICAID, SELFPAY ==
[2020-07-16] VITALS (37 sets, daily range): BP systolic 104–125; BP diastolic 47–74; PULSE 62–100; RESP 12–57; TEMP 36.6–36.7; O2SAT 86–96
--- NOTE | 2020-07-16 07:15 | RT.EKG_ITS ---
APPROVED REPORT Exam: Resting ECG Patient Location: E HR:80 bpm ECG Measurements Heart Rate 80 AXIS [place] [id number] P [id number] QRSd 92 QRS 51 QT 373 T 40 QTc 432 Conclusion Atrial flutter...A-rate 267 motion artifact but appears to be sinus rhythm
--- NOTE | 2020-07-16 07:15 | DI.CT_ITS ---
EXAM: CT THORAX ABD/PEL CTA CLINICAL HISTORY: chets pain radiating to the legs, ?dissection. TECHNIQUE: Imaging Protocol: Axial CT angiography was performed with multi-slice acquisition and m ulti-planar and/or 3D reconstructions. CONTRAST MATERIAL: Intravenous: Omnipaque 350 Contrast volume:125 mL Oral: No COMPARISON: CT CT CHEST PE ABD PELVIS W from 03/01/2020 FINDINGS: CHEST: Pulmonary Arteries: No evidence of filling defect to suggest pulmonary emboli. Tracheobronchial tree: Patent where visualized. Mediastinum and Lyn: No dominant adenopathy or fluid collection. Pulmonary parenchyma: No consolidation or dominant measurable mass. No architectural distortion. Ther e has been no change in size of the 3 mm triangular nodule associated with the left major fissure. T his may reflect lymph node. (Series 10, image 267). Pleura: No effusion or pneumothorax. Heart: The heart is not dilated. No coronary artery calcifications are seen. No pericardial effusion. Aorta: Thoracic aorta non-dilated. No evidence of dissection. Bones: Normal. ABDOMEN AND PELVIS: Abdomen: Celiac axis/mesenteric arteries: No evidence of occlusion or significant stenosis. Renal Arteries: No evidence of occlusion or significant stenosis. There is a single renal artery per fusing each kidney. Aorta: No evidence of occlusion or significant stenosis. No aneurysm or dissection. Pelvis: Iliac Arteries: No evidence of occlusion or significant stenosis. Common Femoral Arteries: No evidence of occlusion or significant stenosis. ABDOMEN: Liver: Normal density. No measurable mass. Portal, Superior Mesenteric, and Splenic Veins: Unremarkable. Gallbladder and Biliary Tract: No radiodense calculus or dilation. Pancreas: Normal density, no abnormal calcifications or inflammatory process. Spleen: Status post splenectomy. There is again seen a small splenic remnant or splenic nodule in th e left upper quadrant. Adrenals: No masses seen. Kidneys: Normal size, contour and axis. No radiodense stones or obstructive uropathy. No masses seen. Bowel: No obstruction or bowel wall thickening. No evidence of appendicitis. Small hiatal hernia. Peritoneal Cavity: No ascites, collection or mesenteric inflammatory response. No free air. Lymph Nodes: Within normal limits. Bones: Unremarkable. Soft Tissues: Unremarkable. IVC: IVC filter is in place. PELVIS: Bladder: Symmetric distention, no gross wall thickening. Reproductive Organs: Unremarkable as visualized. Lymph Nodes: Within normal limits. Bones: Within normal limits. IMPRESSION: 1. No evidence of pulmonary embolism, thoracic aortic dissection or aneurysm. 2. No acute pulmonary process. 3. No acute abdominal or pelvic process. 4. Findings were discussed with the emergency department on the date of the examination. RADIATION DOSE DELIVERED: 1,473.4mGy.cm Total DLP DATA REPOSITORY: All CT scans at this facility are submitted to the National Radiology Data Registry (NRDR) Dose Index Registry (DIR) with the [employer] (ACR). RADIATION OPTIMIZATION: All CT scans at this facility use at least one of these dose optimization te chniques: automated exposure control; mA and/or kV adjustment per patient size (includes targeted exa ms where dose is matched to clinical indication); or iterative reconstruction.
--- NOTE | 2020-07-16 07:27 | ED.GENADUL_ITS ---
Discharge Plan Disposition Patient Disposition: HOME Condition: Stable Discharge Details Clinical Impression: Atypical chest pain, Paresthesia of both legs, Paresthesia of both hands Primary Care Provider: José Miguel Flores ED Provider: Ai Hill Home Meds and New Rx's Prescriptions: Continued epinephrine 0.3 mg/0.3 mL auto-injector 0.3 mg IJ DIRECTED PRN (Reason: Anaphylaxis) Qty: 2 RF: 0 mupirocin 2 % ointment 1 applic topical BID Qty: 15 RF: 0 betamethasone dipropionate 0.05 % ointment 1 applic topical BID Qty: 15 RF: 0 sulfamethoxazole-trimethoprim [Bactrim DS] 800-160 mg tablet 1 tab PO BID Qty: 14 RF: 0 cetirizine [Zyrtec] 10 mg tablet 10 mg PO DAILY Qty: 90 RF: 3 famotidine [Pepcid] 20 mg tablet 20 mg PO DAILY Qty: 90 RF: 3 simethicone 80 mg tablet,chewable 40 mg PO Q6H PRN PRNRF: 0 tramadol 50 mg tablet 50 mg PO Q6H PRN (Reason: pain) Qty: 12 RF: 0 tamsulosin [Flomax] 0.4 mg capsule 0.4 mg PO DAILY RF: 0 triamcinolone acetonide 0.1 % cream 1 applic TP BID Qty: 30 RF: 1 pantoprazole 20 mg tablet,delayed release (DR/EC) 20 mg PO BID Qty: 180 RF: 3 apixaban 5 mg tablet 5 mg PO BID Qty: 180 RF: 3 mupirocin 2 % ointment 1 applic Topical BID PRN (Reason: impetigo) 10 Days Qty: 22 RF: 5 risperidone 0.25 mg tablet 0.25 mg PO BID Qty: 60 RF: 11 clonazepam 1 mg tablet 1 mg PO BID PRN (Reason: anxiety) Qty: 60 RF: 5 hydrocortisone 2.5 % ointment 1 applic TP BID PRN (Reason: neck rash) Qty: 28.35 RF: 1 sertraline 100 mg tablet 100 mg PO DAILY Qty: 90 RF: 3 acetaminophen [Tylenol Extra Strength] 500 mg tablet 1,000 mg PO TID PRN (Reason: pain/fever) Qty: 270 RF: 4 fluticasone propionate [Allergy Relief (fluticasone)] 50 mcg/actuation spray,suspension 1 spray MILLICENT DAILY PRN (Reason: allergy symptoms) Qty: 9.9 RF: 11 Discharge Instructions Instructions: Chest Pain (ED), Paresthesia (ED) Additional Instructions: Drink plenty of fluids and get plenty of rest. Alternate ice and heat to the affected area(s) several times daily for 20 minutes at a time. Take Tylenol as needed directed for pain. Follow-up with your primary care doctor in 1 week. Return to the emergency department with any worsening or new concerning symptoms. Discharge Data Discharge Date/Time-TO BE ENTERED AT DEPARTURE: 07/16/20 11:32 Discharge Physician: Ai Hill Medical Decision Making <Dewayne Felix MD - Last Filed: 07/16/20 07:39> 34-year-old male with a past medical history of debilitating anxiety, bipolar, priapism's, hereditary spherocytosis GERD, IVC filter that [facility] attempted to remove in the past few weeks unsuccessfully so was left in place, PEs and DVTs, pulmonary artery hypertension, esophagitis, who comes in with chest pain as his chief complaint. It is hard to get a full history from the patient due to his crippling anxiety and doesn't answer a lot of questions or gives 1 word answers. It seems he's had a day of anterior chest pain radiating to the abdomen and down both legs and has a burning sensation to his pain. Denies fevers, vomit, headaches. Unable to tell me if anything makes this better or worse. He is very anxious on exam. Has a soft abodmen with mild mid abdomen tenderness no guarding or rebound and normal distal sensation and pulses of the legs with full range of motion of the legs. I suspect his symptoms could be due to underlying anxiety. His heart score is 2, will obtain troponin and ecg. Given the pain radiates down the legs concern for dissection, will obtain CTA. Is on eliquis and denies missing doses, no calf tenderness and no hypoxia or tachycardia so doubt PE Pt signed out to oncoming provider pending labs and imaging results Differential Diagnosis Differential Diagnosis: anxiety, dissection, nstemi Medical Records Medical records reviewed: Yes I reviewed the patient's medical records. ECG Data Attestation: I personally reviewed and interpreted this ECG (s) as follows: Prior ECG tracings: available for review Interpretation: sinus rhythm, rate of 80, qtc 373 motion artifact but no obvious significant st or t wave ischemic findings <Ai Hill DO - Last Filed: 07/16/20 12:24> 0800 -- Please see Dr. Felix's note for initial presentation, exam, and plan. Case endorsed to follow-up on labs and imaging with plan for repeat troponin. CT imaging reviewed and negative. Repeat troponin negative. Repeat EKG unchanged. Patient assessed at bedside and denies any chest pain. He had stated he mainly came here for tingling in his arms and legs. He denies any leg pain. He is moving all his extremities without evidence of cellulitis or focal deficits. He was offered a CT head but declined. History and presentation not consistent with DVT as he denied any leg pain or swelling and doubt this considering he is on apixaban. His paresthesias could possibly due to his significant anxiety. Advised to follow up with the primary care doctor for re-evaluation. Usual and customary return precautions given prior to discharge. Medical Records Medical records reviewed: Yes I reviewed the patient's medical records. Imaging Data Radiologic Study: Radiologist's impression: CT THORAX ABD/PEL CTA CLINICAL HISTORY: chets pain radiating to the legs, ?dissection. TECHNIQUE: Imaging Protocol: Axial CT angiography was performed with multi- slice acquisition and multi-planar and/or 3D reconstructions. CONTRAST MATERIAL: Intravenous: Omnipaque 350 Contrast volume:125 mL Oral: No COMPARISON: CT CT CHEST PE ABD PELVIS W from 03/01/2020 FINDINGS: CHEST: Pulmonary Arteries: No evidence of filling defect to suggest pulmonary emboli. Tracheobronchial tree: Patent where visualized. Mediastinum and Lyn: No dominant adenopathy or fluid collection. Pulmonary parenchyma: No consolidation or dominant measurable mass. No architectural distortion. There has been no change in size of the 3 mm triangular nodule associated with the left major fissure. This may reflect lymph node. (Series 10, image 267). Pleura: No effusion or pneumothorax. Heart: The heart is not dilated. No coronary artery calcifications are seen. No pericardial effusion. Aorta: Thoracic aorta non-dilated. No evidence of dissection. Bones: Normal. ABDOMEN AND PELVIS: Abdomen: Celiac axis/mesenteric arteries: No evidence of occlusion or significant stenosis. Renal Arteries: No evidence of occlusion or significant stenosis. There is a single renal artery perfusing each kidney. Aorta: No evidence of occlusion or significant stenosis. No aneurysm or dissection. Pelvis: Iliac Arteries: No evidence of occlusion or significant stenosis. Common Femoral Arteries: No evidence of occlusion or significant stenosis. ABDOMEN: Liver: Normal density. No measurable mass. Portal, Superior Mesenteric, and Splenic Veins: Unremarkable. Gallbladder and Biliary Tract: No radiodense calculus or dilation. Pancreas: Normal density, no abnormal calcifications or inflammatory process. Spleen: Status post splenectomy. There is again seen a small splenic remnant or splenic nodule in the left upper quadrant. Adrenals: No masses seen. Kidneys: Normal size, contour and axis. No radiodense stones or obstructive uropathy. No masses seen. Bowel: No obstruction or bowel wall thickening. No evidence of appendicitis. Small hiatal hernia. Peritoneal Cavity: No ascites, collection or mesenteric inflammatory response. No free air. Lymph Nodes: Within normal limits. Bones: Unremarkable. Soft Tissues: Unremarkable. IVC: IVC filter is in place. PELVIS: Bladder: Symmetric distention, no gross wall thickening. Reproductive Organs: Unremarkable as visualized. Lymph Nodes: Within normal limits. Bones: Within normal limits. IMPRESSION: 1. No evidence of pulmonary embolism, thoracic aortic dissection or aneurysm. 2. No acute pulmonary process. 3. No acute abdominal or pelvic process. 4. Findings were discussed with the emergency department on the date of the examination. Lab Data Lab results reviewed: Yes I reviewed the patient's lab results. Labs: Laboratory Tests Range/Units 07/16/20 07/16/20 07/16/20 07:38 07:38 07:38 WBC (4.4-10.8) 10^3/uL 12.54 H RBC (4.36-5.78) 10^6/uL 4.90 Hgb (13.5-17.5) g/dL 15.1 Hct (40.0-50.0) % 45.0 MCV (80-95) fL 91.8 MCH (27.0-33.0) pg 30.8 MCHC (32.0-36.0) % 33.6 RDW (11.8-14.1) % 14.6 H Plt Count (130-400) 10^3/uL 505 H MPV (8.0-11.0) fL 9.7 Immature Gran % See Differential Neutrophils % 41.0 Lymphocytes % 45.0 Atypical Lymphs % 4 Monocytes % 9.0 Eosinophils % 1.0 Basophils % 0.0 Nucleated RBC % % 0 Absolute Neutrophils (1.2-6.7) 10^3/uL 5.14 Absolute Lymphocytes (1.2-3.4) 10^3/uL 6.14 H Absolute Monocytes (0.1-0.8) 10^3/uL 1.13 H Absolute Eosinophils (0.0-0.7) 10^3/uL 0.13 Absolute Basophils (0.0-0.2) 10^3/uL 0.00 RBC Morphology See below Polychromasia Present Poikilocytosis 1+ [place] Bodies 1+ Acanthocytes (Spur) 1+ PT (9.3-11.0) sec 10.5 INR (0.9-1.1) 1.0 APTT (21.0-27.5) sec 25.9 Sodium (136-145) mmol/L 136 Potassium (3.5-5.1) mmol/L 3.7 Chloride (98-107) mmol/L 101 Carbon Dioxide (21.0-32.0) mmol/L 28.8 Anion Gap (3-11) mmol/L 6.2 BUN (7-18) mg/dL 11 Creatinine (0.70-1.30) mg/dL 1.14 Estimated GFR/1.73 m2 (mL/min/1.73m2) >= 60.00 Glucose (74-106) mg/dL 112 H Calcium (8.5-10.1) mg/dL 8.7 Magnesium (1.8-2.4) mg/dL 1.9 Total Bilirubin (0.2-1.0) mg/dL 1.8 H Conjugated Bilirubin (0.00-0.20) mg/dL 0.31 H AST (15-37) U/L 24 ALT (16-63) U/L 32 Alkaline Phosphatase (46-116) U/L 77 Troponin I (<0.06) ng/mL < 0.05 Total Protein (6.4-8.2) g/dL 8.0 Albumin (3.4-5.0) g/dL 3.8 Lipase (73-393) U/L 90 Range/Units 07/16/20 10:23 WBC (4.4-10.8) 10^3/uL RBC (4.36-5.78) 10^6/uL Hgb (13.5-17.5) g/dL Hct (40.0-50.0) % MCV (80-95) fL MCH (27.0-33.0) pg MCHC (32.0-36.0) % RDW (11.8-14.1) % Plt Count (130-400) 10^3/uL MPV (8.0-11.0) fL Immature Gran % Neutrophils % Lymphocytes % Atypical Lymphs % Monocytes % Eosinophils % Basophils % Nucleated RBC % % Absolute Neutrophils (1.2-6.7) 10^3/uL Absolute Lymphocytes (1.2-3.4) 10^3/uL Absolute Monocytes (0.1-0.8) 10^3/uL Absolute Eosinophils (0.0-0.7) 10^3/uL Absolute Basophils (0.0-0.2) 10^3/uL RBC Morphology Polychromasia Poikilocytosis [place] Bodies Acanthocytes (Spur) PT (9.3-11.0) sec INR (0.9-1.1) APTT (21.0-27.5) sec Sodium (136-145) mmol/L Potassium (3.5-5.1) mmol/L Chloride (98-107) mmol/L Carbon Dioxide (21.0-32.0) mmol/L Anion Gap (3-11) mmol/L BUN (7-18) mg/dL Creatinine (0.70-1.30) mg/dL Estimated GFR/1.73 m2 (mL/min/1.73m2) Glucose (74-106) mg/dL Calcium (8.5-10.1) mg/dL Magnesium (1.8-2.4) mg/dL Total Bilirubin (0.2-1.0) mg/dL Conjugated Bilirubin (0.00-0.20) mg/dL AST (15-37) U/L ALT (16-63) U/L Alkaline Phosphatase (46-116) U/L Troponin I (<0.06) ng/mL < 0.05 Total Protein (6.4-8.2) g/dL Albumin (3.4-5.0) g/dL Lipase (73-393) U/L ECG Data Attestation: I personally reviewed and interpreted this ECG (s) as follows: Interpretation: #1 -- Rate of 80, sinus, no acute ST elevation or depression, QRS 92, QTc 432 #2 -- Rate of 80, sinus, no acute ST elevation or depression, MD 173, QRS 97, QTc 448. HPI <Dewayne Felix MD - Last Filed: 07/16/20 07:39> General Date/Time Provider Initiated Documentation: 07/16/20 07:10 . Limitations to Documentation: other (anxiety) . Information obtained by: patient and family . History of Present Illness 34 year old M presents to the emergency department with the chief complaint of chest pain, described as moderate, Patient extremity. Patient started experiencing this day(s) (1) and it has been constant. No relieving factors improve symptom(s), No exacerbating factors reported . Patient did receive the following treatments prior to arrival, none Related Data Home Medications Medication Instructions Recorded Confirmed epinephrine 0.3 mg/0.3 mL 0.3 mg IJ DIRECTED PRN #2 kit 03/10/19 07/16/20 injection, auto-injector simethicone 80 mg chewable tablet 40 mg PO Q6H PRN PRN tab 03/10/19 07/16/20 cetirizine 10 mg tablet 10 mg PO DAILY #90 tab-cap 06/30/19 07/16/20 famotidine 20 mg tablet 20 mg PO DAILY #90 tab 08/02/19 07/16/20 tramadol 50 mg tablet 50 mg PO Q6H PRN #12 tab 09/13/19 07/16/20 tamsulosin 0.4 mg capsule 0.4 mg PO DAILY 09/15/19 07/16/20 triamcinolone acetonide 0.1 % 1 applic TP BID #30 gm 10/06/19 07/16/20 topical cream pantoprazole 20 mg tablet,delayed 20 mg PO BID #180 tab 12/12/19 07/16/20 release apixaban 5 mg tablet 5 mg PO BID #180 tab 12/22/19 07/16/20 mupirocin 2 % topical ointment 1 applic TOPICAL BID PRN 10 Days 01/16/20 07/16/20 #22 gm risperidone 0.25 mg tablet 0.25 mg PO BID #60 tab 03/21/20 07/16/20 clonazepam 1 mg tablet 1 mg PO BID PRN #60 tab 04/02/20 07/16/20 hydrocortisone 2.5 % topical 1 applic TP BID PRN #28.35 gm 04/04/20 07/16/20 ointment acetaminophen 500 mg tablet 1,000 mg PO TID PRN #270 tab 05/03/20 07/16/20 sertraline 100 mg tablet 100 mg PO DAILY #90 tab 05/03/20 07/16/20 betamethasone dipropionate 0.05 % 1 applic TOPICAL BID #15 g 06/13/20 07/16/20 topical ointment mupirocin 2 % topical ointment 1 applic TOPICAL BID #15 g 06/13/20 07/16/20 sulfamethoxazole 800 1 tab PO BID #14 tab 06/13/20 06/13/20 mg-trimethoprim 160 mg tablet fluticasone propionate 50 1 spray MILLICENT DAILY PRN #9.9 ml 07/05/20 07/16/20 mcg/actuation nasal spray,suspension Previous Rx's Medication Instructions Recorded epinephrine 0.3 mg/0.3 mL 0.3 mg IJ DIRECTED PRN #2 kit 03/10/19 injection, auto-injector cetirizine 10 mg tablet 10 mg PO DAILY #90 tab-cap 06/30/19 famotidine 20 mg tablet 20 mg PO DAILY #90 tab 08/02/19 tramadol 50 mg tablet 50 mg PO Q6H PRN #12 tab 09/13/19 triamcinolone acetonide 0.1 % 1 applic TP BID #30 gm 10/06/19 topical cream pantoprazole 20 mg tablet,delayed 20 mg PO BID #180 tab 12/12/19 release apixaban 5 mg tablet 5 mg PO BID #180 tab 12/22/19 mupirocin 2 % topical ointment 1 applic TOPICAL BID PRN 10 Days 01/16/20 #22 gm risperidone 0.25 mg tablet 0.25 mg PO BID #60 tab 03/21/20 clonazepam 1 mg tablet 1 mg PO BID PRN #60 tab 04/02/20 hydrocortisone 2.5 % topical 1 applic TP BID PRN #28.35 gm 04/04/20 ointment acetaminophen 500 mg tablet 1,000 mg PO TID PRN #270 tab 05/03/20 sertraline 100 mg tablet 100 mg PO DAILY #90 tab 05/03/20 betamethasone dipropionate 0.05 % 1 applic TOPICAL BID #15 g 06/13/20 topical ointment mupirocin 2 % topical ointment 1 applic TOPICAL BID #15 g 06/13/20 sulfamethoxazole 800 1 tab PO BID #14 tab 06/13/20 mg-trimethoprim 160 mg tablet fluticasone propionate 50 1 spray MILLICENT DAILY PRN #9.9 ml 07/05/20 mcg/actuation nasal spray,suspension Allergies Allergy/AdvReac Type Severity Reaction Status Date / Time bacitracin Allergy Unverified 07/16/20 07:21 beer Allergy Severe Anaphylaxsi Uncoded 07/16/20 07:21 s unknown anphalyxis Allergy Severe Anaphylaxsi Uncoded 07/16/20 07:21 s General Stated Complaint: GenMedical CONSTANCE: 3 Review of Systems <Dewayne Felix MD - Last Filed: 07/16/20 07:39> All systems reviewed & are unremarkable except as noted in HPI and below Constitutional Constitutional: Denies chills and Denies fever(s) Respiratory Respiratory: Denies cough Gastrointestinal Gastrointestinal: Denies nausea and Denies vomiting Musculoskeletal Musculoskeletal: Denies joint swelling PFSH <Dewayne Felix MD - Last Filed: 07/16/20 07:39> Medical History (Updated 07/16/20 @ 11:05 by Ai Hill DO) Anxiety Bipolar disorder GERD with esophagitis Surgical History H/O hernia repair Unspecified site, repaired x3 History of splenectomy Social History Smoking/Tobacco Use Status: Never Smoking risk assessment performed?: Yes Alcohol Intake: never Drug use: Never Substance use type: does not use Do you feel safe at home: Yes Do you feel safe in your relationship?: Yes Exam <Dewayne Felix MD - Last Filed: 07/16/20 07:39> Const General: anxious Orientation: alert HENMT Head: normal to inspection Ears: external ears normal General nose exam: external nose normal Mouth: moist mucous membranes Eyes General: appearance normal, both eyes and all related structures Neck Neck: normal visual inspection Resp Effort & Inspection: normal respiratory effort and able to speak in complete sentences Cardio Rate: regular rate GI Palpation: soft and not rigid Skin General skin exam: no rashes or lesions noted Neuro General: patient alert and patient oriented x3 Extrem General: normal to inspection Course <Dewayne Felix MD - Last Filed: 07/16/20 07:39> Vital Signs Vital signs: Vital Signs Temperature 36.7 C 07/16/20 07:09 Pulse 88 07/16/20 07:09 Respiratory Rate 18 07/16/20 07:09 Blood Pressure 123/65 07/16/20 07:09 Pulse Oximetry 96 07/16/20 07:09 Temperature 36.7 C 07/16/20 07:09 Temperature Source Temporal Artery Scan 07/16/20 07:09 Pulse 88 07/16/20 07:09 Respiratory Rate 18 07/16/20 07:23 Respiratory Effort Non-Labored 07/16/20 07:23 Respiratory Depth Normal 07/16/20 07:23 Respiratory Pattern Normal 07/16/20 07:23 Blood Pressure 123/65 07/16/20 07:09 Blood Pressure Position Supine 07/16/20 07:09 Pulse Oximetry 96 07/16/20 07:09 Oxygen Delivery Method Room Air 07/16/20 07:09 Oxygen Flow Rate 0 07/16/20 07:09 Sign Out <Dewayne Felix MD - Last Filed: 07/16/20 07:39> Sign Out Data: Sign Out Comment: debilitating anxiety, chest pain and burning radiating to the legs, pending labs and CTA, disposition Last updated by Dewayne Felix MD at 07/16/20 07:41
[2020-07-16 07:48] LABS: Abs Immature Grans 0.04 10^3/uL (0.0-0.06); HGB 15.1 g/dL (13.5-17.5); MCH 30.8 pg (27.0-33.0); MCHC 33.6 % (32.0-36.0); MCV 91.8 fL (80-95); MPV 9.7 fL (8.0-11.0); Nucleated RBC 0 %; Platelet Count 505 10^3/uL (130-400); RDW 14.6 % (11.8-14.1); RDW-SD 49.1 fL; WBC 12.54 10^3/uL (4.4-10.8)
[2020-07-16 08:02] LABS: ALT 32 U/L (16-63); AST 24 U/L (15-37); Albumin 3.8 g/dL (3.4-5.0); Alkaline Phosphatase 77 U/L (46-116); Anion Gap 6.2 mmol/L (3-11); BUN 11 mg/dL (7-18); Bilirubin, Direct 0.31 mg/dL (0.00-0.20); Bilirubin, Total 1.8 mg/dL (0.2-1.0); CO2 28.8 mmol/L (21.0-32.0); CREATININE 1.14 mg/dL (0.70-1.30); Calcium 8.7 mg/dL (8.5-10.1); Chloride 101 mmol/L (98-107); Glucose 112 mg/dL (74-106); Lipase 90 U/L (73-393); Magnesium 1.9 mg/dL (1.8-2.4); PTT Activated 25.9 sec (21.0-27.5); Potassium 3.7 mmol/L (3.5-5.1); Prothrombin Time 10.5 sec (9.3-11.0); Sodium 136 mmol/L (136-145)
[2020-07-16 08:03] LABS: Troponin I < 0.05 ng/mL (<0.06)
[2020-07-16 08:17] LABS: Absolute Eosinophil Count 0.13 10^3/uL (0.0-0.7); Absolute Lymphocyte Count 6.14 10^3/uL (1.2-3.4); Absolute Monocyte Count 1.13 10^3/uL (0.1-0.8); Absolute Neutrophil Count 5.14 10^3/uL (1.2-6.7); Acanthocytes 1+; Atypical Lymphocytes % 4; Diff Comment Manual Differential; Howell-Jolly Bodies 1+; Poikilocytes 1+; Polychromasia Present
[2020-07-16] MEDS: Normal Saline - Diluent 50 ML VIAL IV (08:40)
[2020-07-16] MEDS: Normal Saline 1,000 ML 1000 ML IV (09:25)
--- NOTE | 2020-07-16 09:30 | RT.EKG_ITS ---
APPROVED REPORT Exam: Resting ECG Patient Location: E HR:77 bpm ECG Measurements Heart Rate 77 AXIS CA 186 P 60 QRSd 97 QRS 48 QT 388 T 37 QTc 439 Conclusion Sinus rhythm...normal P axis, V-rate 60- 99. Motion artifact V2, otherwise sinus. I have reviewed and interpreted ECG and agree with software generated interpretation.
--- NOTE | 2020-07-16 10:30 | RT.EKG_ITS ---
APPROVED REPORT Exam: Resting ECG Patient Location: E HR:80 bpm ECG Measurements Heart Rate 80 AXIS PA 173 P 56 QRSd 97 QRS 45 QT 386 T 46 QTc 448 Conclusion Sinus rhythm...normal P axis, V-rate 60- 99 Motion artifact V2, improved. Otherwise sinus and no acute change. I have reviewed and interpreted ECG and agree with software generated interpretation.
[2020-07-16 10:44] LABS: Troponin I < 0.05 ng/mL (<0.06)
== END 2020-07-16 11:32 | disposition home or self-care (01) ==
PROVIDERS: Emergency Medicine; Emergency Provider Physician Assistant; PCP Family Medicine
DX: R07.89 Other chest pain (principal); R20.2 Paresthesia of skin; R20.8 Other disturbances of skin sensation; F41.8 Other specified anxiety disorders
CPT/HCPCS: 36415; 71275; 74177; 80053; 83690; 93005; 96360; 99285; 82248; 83735; 84484; 85025; 85610; 85730; 93010

== ENCOUNTER 2020-07-29 02:56 | Outpatient (CLI) | payer MEDICARE, MEDICAID, SELFPAY ==
--- NOTE | 2020-07-29 06:30 | DI.RAD_ITS ---
EXAM: XR CERVICAL SPINE COMP 4-5V CLINICAL HISTORY: leg pain/weakness,leg shaking, r20.0. TECHNIQUE: 2D digital imaging was performed. COMPARISON: No exams were available for comparison FINDINGS: BONES: No fracture or destructive lesion. Vertebral bodies are unremarkable. DISKS: Intervertebral disc spaces are maintained. ALIGNMENT: Cervical spinal alignment is within normal limits. The odontoid and atlantoaxial articulat ions are normal. SOFT TISSUE: Normal. The lung apices are clear. There are surgical clips in the soft tissues of the n shellie. IMPRESSION: Unremarkable radiographs of the cervical spine. DATA REPOSITORY: RADIATION DOSE DELIVERED:
--- NOTE | 2020-07-29 06:38 | DI.RAD_ITS ---
EXAM: XR LUMBAR SPINE COMPLETE CLINICAL HISTORY: leg shaking,LOW BACK PAIN, M54.5,R20.0. TECHNIQUE: 2D digital imaging was performed. COMPARISON: No exams were available for comparison FINDINGS: BONES: No fracture or destructive lesion. Vertebral bodies are unremarkable. No facet hypertrophy megan ntified. DISKS: Intervertebral disc spaces are maintained. ALIGNMENT: Lumbar spinal alignment is within normal limits. SOFT TISSUE: There is an IVC filter at the L2-L3 level. IMPRESSION: Unremarkable radiographs of the lumbar spine. DATA REPOSITORY: RADIATION DOSE DELIVERED:
== END 2020-07-29 03:16 ==
PROVIDERS: PCP Family Medicine; Visit Provider Family Medicine
DX: M54.5 Low back pain (principal); R20.0 Anesthesia of skin; R53.1 Weakness
CPT/HCPCS: 72050; 72110

== ENCOUNTER 2020-07-29 17:17 | Emergency (ER) | payer MEDICARE, MEDICAID, SELFPAY ==
[2020-07-29] VITALS (34 sets, daily range): BP systolic 102–151; BP diastolic 53–73; PULSE 56–87; RESP 12–38; TEMP 36.5; O2SAT 90–97
--- NOTE | 2020-07-29 17:30 | DI.RAD_ITS ---
EXAM: XR PORTABLE CHEST AP CLINICAL HISTORY: chest pain TECHNIQUE: 2D digital imaging was performed. COMPARISON: CR XR CHEST 2V PA LATERAL from 02/14/2020 FINDINGS: MEDIASTINUM: Normal. HEART: Normal. PULMONARY VASCULATURE: Normal. LUNGS: There is poor inspiration with crowding of the pulmonary vasculature. No focal consolidating infiltrate is seen. PLEURAL SPACE: No pleural effusion or pneumothorax. BONE:Within normal limits for the patient's age. OTHER FINDINGS:Normal. IMPRESSION: No acute pulmonary findings. DATA REPOSITORY: RADIATION DOSE DELIVERED:
--- NOTE | 2020-07-29 18:15 | RT.EKG_ITS ---
APPROVED REPORT Exam: Resting ECG Patient Location: E HR:70 bpm ECG Measurements Heart Rate 70 AXIS OK 185 P 44 QRSd 105 QRS 46 QT 389 T 40 QTc 419 Conclusion Sinus rhythm...normal P axis, V-rate 60- 99 I have reviewed and interpreted ECG and agree with software generated interpretation.
[2020-07-29] MEDS: diphenhydrAMINE 50 MG/ML VIAL 25 MG IVP (18:25)
[2020-07-29 18:37] LABS: Abs Immature Grans 0.03 10^3/uL (0.0-0.06); Absolute Basophil Count 0.04 10^3/uL (0.0-0.2); Absolute Eosinophil Count 0.25 10^3/uL (0.0-0.7); Absolute Monocyte Count 1.28 10^3/uL (0.1-0.8); Absolute Neutrophil Count 6.02 10^3/uL (1.2-6.7); Basophils % 0.4; Eosinophils % 2.2; HCT 42.8 % (40.0-50.0); HGB 14.2 g/dL (13.5-17.5); Immature Grans % 0.3; Lymphocytes % 32.1; MCH 30.7 pg (27.0-33.0); MCHC 33.2 % (32.0-36.0); MCV 92.4 fL (80-95); MPV 9.6 fL (8.0-11.0); Monocytes % 11.4; Neutrophils % 53.6; Nucleated RBC 0 %; Platelet Count 542 10^3/uL (130-400); RBC 4.63 10^6/uL (4.36-5.78); RDW 14.8 % (11.8-14.1); RDW-SD 50.4 fL; WBC 11.23 10^3/uL (4.4-10.8)
[2020-07-29 18:56] LABS: ALT 29 U/L (16-63); AST 29 U/L (15-37); Alkaline Phosphatase 80 U/L (46-116); BUN 16 mg/dL (7-18); Bilirubin, Total 1.1 mg/dL (0.2-1.0); CREATININE 1.1 mg/dL (0.70-1.30); Calcium 8.8 mg/dL (8.5-10.1); Chloride 104 mmol/L (98-107); Glucose 101 mg/dL (74-106); Potassium 3.7 mmol/L (3.5-5.1); Sodium 139 mmol/L (136-145); Total Protein 8.1 g/dL (6.4-8.2)
[2020-07-29 18:58] LABS: Lipase 145 U/L (73-393); Troponin I < 0.05 ng/mL (<0.06)
--- NOTE | 2020-07-29 19:21 | DI.VRAD_ITS ---
PROCEDURE INFORMATION: Exam: XR Chest, 1 View Exam date and time: 07/29/2020 6:54 PM Age: 34 years old Clinical indication: Chest pain; Type not specified TECHNIQUE: Imaging protocol: XR of the chest Views: 1 view. COMPARISON: CT THORAX ABD/PEL CTA 07/16/2020 8:26 AM FINDINGS: Lungs: Unremarkable. No consolidation. Pleural spaces: Unremarkable. No pleural effusion. No pneumothorax. Heart/Mediastinum: Unremarkable. No cardiomegaly. Bones/joints: Unremarkable. IMPRESSION: No acute abnormality. Dictated and Authenticated by: Stephen Henry MD. Ordering:SAUNDRA Adams MD
--- NOTE | 2020-07-29 19:30 | RT.EKG_ITS ---
APPROVED REPORT Exam: Resting ECG Patient Location: E HR:61 bpm ECG Measurements Heart Rate 61 AXIS [place] 183 P 29 QRSd 106 QRS 31 QT 416 T 37 QTc 419 Conclusion Sinus rhythm...normal P axis, V-rate 60- 99 I have reviewed and interpreted ECG and agree with software generated interpretation.
--- NOTE | 2020-07-29 19:41 | W.ED.GENAD ---
Discharge Plan Disposition Patient Disposition: HOME Condition: Good Discharge Details Clinical Impression: Rash of both hands, Paresthesias, Burning chest pain Primary Care Provider: José Miguel Flores ED Provider: Ai Hill Home Meds and New Rx's Prescriptions: New epinephrine [EpiPen 2-Farrukh] 0.3 mg/0.3 mL auto-injector 0.3 mg IM ONCE Qty: 2 RF: 0 prednisone 20 mg tablet 40 mg PO DAILY 3 Days Qty: 6 RF: 0 Continued epinephrine 0.3 mg/0.3 mL auto-injector 0.3 mg IJ DIRECTED PRN (Reason: Anaphylaxis) Qty: 2 RF: 0 mupirocin 2 % ointment 1 applic topical BID Qty: 15 RF: 0 betamethasone dipropionate 0.05 % ointment 1 applic topical BID Qty: 15 RF: 0 cetirizine [Zyrtec] 10 mg tablet 10 mg PO DAILY Qty: 90 RF: 3 famotidine [Pepcid] 20 mg tablet 20 mg PO DAILY Qty: 90 RF: 3 pantoprazole 20 mg tablet,delayed release (DR/EC) 40 mg PO BID RF: 0 amitriptyline 10 mg tablet 10 mg PO QHS Qty: 30 RF: 0 simethicone 80 mg tablet,chewable 40 mg PO Q6H PRN PRNRF: 0 tamsulosin [Flomax] 0.4 mg capsule 0.4 mg PO DAILY RF: 0 triamcinolone acetonide 0.1 % cream 1 applic TP BID Qty: 30 RF: 1 apixaban 5 mg tablet 5 mg PO BID Qty: 180 RF: 3 mupirocin 2 % ointment 1 applic Topical BID PRN (Reason: impetigo) 10 Days Qty: 22 RF: 5 risperidone 0.25 mg tablet 0.25 mg PO BID Qty: 60 RF: 11 clonazepam 1 mg tablet 1 mg PO BID PRN (Reason: anxiety) Qty: 60 RF: 5 hydrocortisone 2.5 % ointment 1 applic TP BID PRN (Reason: neck rash) Qty: 28.35 RF: 1 sertraline 100 mg tablet 100 mg PO DAILY Qty: 90 RF: 3 acetaminophen [Tylenol Extra Strength] 500 mg tablet 1,000 mg PO TID PRN (Reason: pain/fever) Qty: 270 RF: 4 fluticasone propionate [Allergy Relief (fluticasone)] 50 mcg/actuation spray,suspension 1 spray MILLICENT DAILY PRN (Reason: allergy symptoms) Qty: 9.9 RF: 11 Discharge Instructions Instructions: Chest Pain (ED), Acute Rash (ED) Additional Instructions: Take the steroids as directed until finished. Take Benadryl as needed and directed for itching. Avoid any possible foods or exposures that may have precipitated this event. Follow-up with your primary care doctor in 1 week. Return to the emergency department with any worsening or new concerning symptoms. Discharge Data Discharge Date/Time-TO BE ENTERED AT DEPARTURE: 07/29/20 22:03 Discharge Physician: Ai Hill Medical Decision Making <JORGE Saavedra - Last Filed: 07/31/20 13:15> Given patient heart score of 2 given his history of coagulopathy, we did order chest x-ray, troponin x2, EKG Patient is currently pain-free He is in no acute distress No evidence of anaphylaxis clinically, this patient appears very anxious and I think of why he has tachypneic, mildly the room, he normal respiratory rate resting Clinically my suspicion for PE is low, he has no calf pain or swelling, he anticoagulated on his Eliquis, and he is not hypoxic Chest x-ray per radiology interpretation my review does not show acute pathology Initial EKG and troponin are negative No indication for CTA at this time as patient is appropriately anticoagulated with IVC filter in place Patient was signed out to my attending physician, Dr. Hill pending repeat troponin and EKG at 8:00 PM in stable condition Of note, patient has had 2 - CTAs of the chest in the past several months, the last being on 16 July and patient felt fine prior to dinner this evening No evidence of food bolus Differential Diagnosis Differential Diagnosis: angina, pulmonary embolism, allergic reaction, anxiety Medical Records Medical records reviewed: Yes I reviewed the patient's medical records. Lab Data Lab results reviewed: Yes I reviewed the patient's lab results. <Ai Hill DO - Last Filed: 07/29/20 22:34> 1999 --please see JORGE Finley note for initial presentation, exam and plan. Case endorsed to follow-up on repeat troponin and EKG. Repeat troponin negative. Repeat EKG unchanged. 2129 -- Patient reassessed and states that he came in for burning chest pain and tingling around his lips and hands along with a red rash to his hands that he believes started after eating beans today. Normal oropharynx. Lungs clear. He appears at his baseline level of significant anxiety but no signs of labored breathing. There is no lip or tongue swelling. He has blanching scant erythema to dorsal aspect of his hands, mostly over his MCP joint. No cellulitis. Patient description of perioral and hand paresthesias appear consistent with his previous similar complaints of this that may be associated with his anxiety. Will treat the mild rash with a short course of steroids. Patient given a prescription for an EpiPen. Advised to follow up with the primary care doctor for re-evaluation. Usual and customary return precautions given prior to discharge. Medical Records Medical records reviewed: Yes I reviewed the patient's medical records. Imaging Data Radiologic Study: Radiologist's impression: XR Chest, 1 View Exam date and time: 07/29/2020 6:54 PM Age: 34 years old Clinical indication: Chest pain; Type not specified TECHNIQUE: Imaging protocol: XR of the chest Views: 1 view. COMPARISON: CT THORAX ABD/PEL CTA 07/16/2020 8:26 AM FINDINGS: Lungs: Unremarkable. No consolidation. Pleural spaces: Unremarkable. No pleural effusion. No pneumothorax. Heart/Mediastinum: Unremarkable. No cardiomegaly. Bones/joints: Unremarkable. IMPRESSION: No acute abnormality. Lab Data Lab results reviewed: Yes I reviewed the patient's lab results. Labs: Laboratory Tests Range/Units 07/29/20 07/29/20 07/29/20 18:25 18:25 18:25 WBC (4.4-10.8) 10^3/uL 11.23 H RBC (4.36-5.78) 10^6/uL 4.63 Hgb (13.5-17.5) g/dL 14.2 Hct (40.0-50.0) % 42.8 MCV (80-95) fL 92.4 MCH (27.0-33.0) pg 30.7 MCHC (32.0-36.0) % 33.2 RDW (11.8-14.1) % 14.8 H Plt Count (130-400) 10^3/uL 542 H MPV (8.0-11.0) fL 9.6 Immature Gran % 0.3 Neutrophils % 53.6 Lymphocytes % 32.1 Monocytes % 11.4 Eosinophils % 2.2 Basophils % 0.4 Nucleated RBC % % 0 Absolute Neutrophils (1.2-6.7) 10^3/uL 6.02 Absolute Lymphocytes (1.2-3.4) 10^3/uL 3.60 H Absolute Monocytes (0.1-0.8) 10^3/uL 1.28 H Absolute Eosinophils (0.0-0.7) 10^3/uL 0.25 Absolute Basophils (0.0-0.2) 10^3/uL 0.04 Sodium (136-145) mmol/L 139 Potassium (3.5-5.1) mmol/L 3.7 Chloride (98-107) mmol/L 104 Carbon Dioxide (21.0-32.0) mmol/L 26.0 Anion Gap (3-11) mmol/L 9.0 BUN (7-18) mg/dL 16 Creatinine (0.70-1.30) mg/dL 1.1 Estimated GFR/1.73 m2 (mL/min/1.73m2) >= 60.00 Glucose (74-106) mg/dL 101 Calcium (8.5-10.1) mg/dL 8.8 Total Bilirubin (0.2-1.0) mg/dL 1.1 H AST (15-37) U/L 29 ALT (16-63) U/L 29 Alkaline Phosphatase (46-116) U/L 80 Troponin I (<0.06) ng/mL < 0.05 Total Protein (6.4-8.2) g/dL 8.1 Albumin (3.4-5.0) g/dL 4.0 Lipase (73-393) U/L 145 Range/Units 07/29/20 20:40 WBC (4.4-10.8) 10^3/uL RBC (4.36-5.78) 10^6/uL Hgb (13.5-17.5) g/dL Hct (40.0-50.0) % MCV (80-95) fL MCH (27.0-33.0) pg MCHC (32.0-36.0) % RDW (11.8-14.1) % Plt Count (130-400) 10^3/uL MPV (8.0-11.0) fL Immature Gran % Neutrophils % Lymphocytes % Monocytes % Eosinophils % Basophils % Nucleated RBC % % Absolute Neutrophils (1.2-6.7) 10^3/uL Absolute Lymphocytes (1.2-3.4) 10^3/uL Absolute Monocytes (0.1-0.8) 10^3/uL Absolute Eosinophils (0.0-0.7) 10^3/uL Absolute Basophils (0.0-0.2) 10^3/uL Sodium (136-145) mmol/L Potassium (3.5-5.1) mmol/L Chloride (98-107) mmol/L Carbon Dioxide (21.0-32.0) mmol/L Anion Gap (3-11) mmol/L BUN (7-18) mg/dL Creatinine (0.70-1.30) mg/dL Estimated GFR/1.73 m2 (mL/min/1.73m2) Glucose (74-106) mg/dL Calcium (8.5-10.1) mg/dL Total Bilirubin (0.2-1.0) mg/dL AST (15-37) U/L ALT (16-63) U/L Alkaline Phosphatase (46-116) U/L Troponin I (<0.06) ng/mL < 0.05 Total Protein (6.4-8.2) g/dL Albumin (3.4-5.0) g/dL Lipase (73-393) U/L ECG Data Attestation: I personally reviewed and interpreted this ECG (s) as follows: Interpretation: #1 -- rate of 70, sinus, no acute st elevation or depression, FL 185, QRS 105, QTc 419. #2 -- rate of 61, sinus, no acute st elevation or depression, FL 183, QRS 106, QTc 419. HPI <JORGE Saavedra - Last Filed: 07/31/20 13:15> This 34-year-old male with history of crippling anxiety, pulmonary embolism, DVT, and Eliquis presents with reports of chest burning and arm burning with a possible rash which occurred after eating some beans and cheese. He states the symptoms came on abruptly approximately an hour prior to arrival. He took some Benadryl. He denies any difficulty swallowing or shortness of breath. 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 He denies any history of coronary artery disease or known early family history of coronary artery disease. He does not smoke tobacco. He has been taking his Eliquis as prescribed. [place] reportedly fine prior to eating dinner. pt has IVC filter in place reportedly. Denies exertional dyspnea. Denies orthopnea. Difficult to obtain history secondary to anxiety. General Date/Time Provider Initiated Documentation: 07/29/20 17:40. Related Data Home Medications Medication Instructions Recorded Confirmed epinephrine 0.3 mg/0.3 mL 0.3 mg IJ DIRECTED PRN #2 kit 03/10/19 07/16/20 injection, auto-injector simethicone 80 mg chewable tablet 40 mg PO Q6H PRN PRN tab 03/10/19 07/16/20 cetirizine 10 mg tablet 10 mg PO DAILY #90 tab-cap 06/30/19 07/16/20 famotidine 20 mg tablet 20 mg PO DAILY #90 tab 08/02/19 07/16/20 tamsulosin 0.4 mg capsule 0.4 mg PO DAILY 09/15/19 07/16/20 triamcinolone acetonide 0.1 % 1 applic TP BID #30 gm 10/06/19 07/16/20 topical cream apixaban 5 mg tablet 5 mg PO BID #180 tab 12/22/19 07/16/20 mupirocin 2 % topical ointment 1 applic TOPICAL BID PRN 10 Days 01/16/20 07/16/20 #22 gm risperidone 0.25 mg tablet 0.25 mg PO BID #60 tab 03/21/20 07/16/20 clonazepam 1 mg tablet 1 mg PO BID PRN #60 tab 04/02/20 07/16/20 hydrocortisone 2.5 % topical 1 applic TP BID PRN #28.35 gm 04/04/20 07/16/20 ointment acetaminophen 500 mg tablet 1,000 mg PO TID PRN #270 tab 05/03/20 07/16/20 sertraline 100 mg tablet 100 mg PO DAILY #90 tab 05/03/20 07/16/20 betamethasone dipropionate 0.05 % 1 applic TOPICAL BID #15 g 06/13/20 07/16/20 topical ointment mupirocin 2 % topical ointment 1 applic TOPICAL BID #15 g 06/13/20 07/16/20 fluticasone propionate 50 1 spray MILLICENT DAILY PRN #9.9 ml 07/05/20 07/16/20 mcg/actuation nasal spray,suspension amitriptyline 10 mg tablet 10 mg PO QHS #30 tab 07/26/20 07/26/20 pantoprazole 20 mg tablet,delayed 40 mg PO BID tab 07/26/20 release epinephrine [EpiPen 2-Farrukh] 0.3 mg IM ONCE #2 ea 07/29/20 prednisone 40 mg PO DAILY 3 Days #6 tab 07/29/20 Previous Rx's Medication Instructions Recorded epinephrine 0.3 mg/0.3 mL 0.3 mg IJ DIRECTED PRN #2 kit 03/10/19 injection, auto-injector cetirizine 10 mg tablet 10 mg PO DAILY #90 tab-cap 06/30/19 famotidine 20 mg tablet 20 mg PO DAILY #90 tab 08/02/19 triamcinolone acetonide 0.1 % 1 applic TP BID #30 gm 10/06/19 topical cream apixaban 5 mg tablet 5 mg PO BID #180 tab 12/22/19 mupirocin 2 % topical ointment 1 applic TOPICAL BID PRN 10 Days 01/16/20 #22 gm risperidone 0.25 mg tablet 0.25 mg PO BID #60 tab 03/21/20 clonazepam 1 mg tablet 1 mg PO BID PRN #60 tab 04/02/20 hydrocortisone 2.5 % topical 1 applic TP BID PRN #28.35 gm 04/04/20 ointment acetaminophen 500 mg tablet 1,000 mg PO TID PRN #270 tab 05/03/20 sertraline 100 mg tablet 100 mg PO DAILY #90 tab 05/03/20 betamethasone dipropionate 0.05 % 1 applic TOPICAL BID #15 g 06/13/20 topical ointment mupirocin 2 % topical ointment 1 applic TOPICAL BID #15 g 06/13/20 fluticasone propionate 50 1 spray MILLICENT DAILY PRN #9.9 ml 07/05/20 mcg/actuation nasal spray,suspension amitriptyline 10 mg tablet 10 mg PO QHS #30 tab 07/26/20 epinephrine [EpiPen 2-Farrukh] 0.3 mg IM ONCE #2 ea 07/29/20 prednisone 40 mg PO DAILY 3 Days #6 tab 07/29/20 Allergies Allergy/AdvReac Type Severity Reaction Status Date / Time bacitracin Allergy Verified 07/26/20 10:39 dog dander Allergy Unverified 07/29/20 17:28 beer Allergy Severe Anaphylaxsi Uncoded 07/26/20 10:39 s unknown anphalyxis Allergy Severe Anaphylaxsi Uncoded 07/26/20 10:39 s General Stated Complaint: Allergic CONSTANCE: 3 <Ai Hill DO - Last Filed: 07/29/20 22:34> This 34-year-old male with history of crippling anxiety, pulmonary embolism, DVT, and Eliquis presents with reports of chest burning and arm burning with a possible rash which occurred after eating some beans and cheese. He states the symptoms came on abruptly approximately an hour prior to arrival. He took some Benadryl. He denies any difficulty swallowing or shortness of breath. 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 He denies any history of coronary artery disease or known early family history of coronary artery disease. He does not smoke tobacco. He has been taking his Eliquis as prescribed. [place] reportedly fine prior to eating dinner. pt has IVC filter in place reportedly. Denies exertional dyspnea. Denies orthopnea. Difficult to obtain history secondary to anxiety. Review of Systems <JORGE Saavedra - Last Filed: 07/31/20 13:15> Narrative: Review of systems negative x7 aside from where indicated in HPI PFSH <JORGE Saavedra - Last Filed: 07/31/20 13:15> Medical History (Updated 07/29/20 @ 21:28 by Ai Hill DO) Anxiety Bipolar disorder GERD with esophagitis Leg numbness Surgical History H/O hernia repair Unspecified site, repaired x3 History of splenectomy Social History Smoking/Tobacco Use Status: Never Smoking risk assessment performed?: Yes Alcohol Intake: never Drug use: Never Substance use type: does not use Current gender identity: male Do you feel safe at home: Yes Do you feel safe in your relationship?: Yes Exam <JORGE Saavedra - Last Filed: 07/31/20 13:15> Const General: cooperative Neck Other: No stridor Resp Other: tachypnea Cardio Rate: regular rate Rhythm: regular rhythm GI Inspection: normal to inspection Other: No tenderness with palpation in all 4, Skin General skin exam: no rashes or lesions noted Neuro General: patient alert and patient oriented x3 Extrem Other: No calf pain or swelling appreciated Psych Other: Appears very anxious Course <JORGE Saavedra - Last Filed: 07/31/20 13:15> Vital Signs Vital signs: Vital Signs Temperature 36.5 C 07/29/20 17:24 Pulse 87 07/29/20 17:24 Respiratory Rate 22 07/29/20 17:24 Blood Pressure 151/66 H 07/29/20 17:24 Pulse Oximetry 97 07/29/20 17:24 Temperature 36.5 C 07/29/20 17:24 Temperature Source Skin 07/29/20 17:24 Pulse 67 07/29/20 19:01 Pulse 69 07/29/20 19:01 Respiratory Rate 31 H 07/29/20 19:01 Respiratory Effort 07/29/20 18:34 Respiratory Pattern Tachypnea 07/29/20 18:34 Blood Pressure 109/63 07/29/20 19:01 Blood Pressure Mean 73 07/29/20 19:01 Blood Pressure Position Supine 07/29/20 17:24 Pulse Oximetry 92 07/29/20 19:01 Oxygen Delivery Method Room Air 07/29/20 17:24 Oxygen Flow Rate 0 07/29/20 17:24 Pain Level 0 07/29/20 17:24 Lab/Test Results Lab/Test Results: Laboratory Tests Range/Units 07/29/20 07/29/20 07/29/20 18:25 18:25 18:25 WBC (4.4-10.8) 10^3/uL 11.23 H RBC (4.36-5.78) 10^6/uL 4.63 Hgb (13.5-17.5) g/dL 14.2 Hct (40.0-50.0) % 42.8 MCV (80-95) fL 92.4 MCH (27.0-33.0) pg 30.7 MCHC (32.0-36.0) % 33.2 RDW (11.8-14.1) % 14.8 H Plt Count (130-400) 10^3/uL 542 H MPV (8.0-11.0) fL 9.6 Immature Gran % 0.3 Neutrophils % 53.6 Lymphocytes % 32.1 Monocytes % 11.4 Eosinophils % 2.2 Basophils % 0.4 Nucleated RBC % % 0 Absolute Neutrophils (1.2-6.7) 10^3/uL 6.02 Absolute Lymphocytes (1.2-3.4) 10^3/uL 3.60 H Absolute Monocytes (0.1-0.8) 10^3/uL 1.28 H Absolute Eosinophils (0.0-0.7) 10^3/uL 0.25 Absolute Basophils (0.0-0.2) 10^3/uL 0.04 Sodium (136-145) mmol/L 139 Potassium (3.5-5.1) mmol/L 3.7 Chloride (98-107) mmol/L 104 Carbon Dioxide (21.0-32.0) mmol/L 26.0 Anion Gap (3-11) mmol/L 9.0 BUN (7-18) mg/dL 16 Creatinine (0.70-1.30) mg/dL 1.1 Estimated GFR/1.73 m2 (mL/min/1.73m2) >= 60.00 Glucose (74-106) mg/dL 101 Calcium (8.5-10.1) mg/dL 8.8 Total Bilirubin (0.2-1.0) mg/dL 1.1 H AST (15-37) U/L 29 ALT (16-63) U/L 29 Alkaline Phosphatase (46-116) U/L 80 Troponin I (<0.06) ng/mL < 0.05 Total Protein (6.4-8.2) g/dL 8.1 Albumin (3.4-5.0) g/dL 4.0 Lipase (73-393) U/L 145
[2020-07-29 21:07] LABS: Troponin I < 0.05 ng/mL (<0.06)
[2020-07-29] MEDS: predniSONE 20 MG TAB 40 MG PO (21:50)
== END 2020-07-29 22:03 | disposition home or self-care (01) ==
PROVIDERS: Physician Assistant; Emergency Provider Physician Assistant; PCP Family Medicine
DX: R21 Rash and other nonspecific skin eruption (principal); R20.2 Paresthesia of skin; R07.89 Other chest pain; F41.9 Anxiety disorder, unspecified
CPT/HCPCS: 36415; 80053; 83690; 93005; 96374; 99285; 71045; 72050; 72110; 84484; 85025; 93010; 99284; J1200; J7512

== ENCOUNTER 2020-09-06 09:24 | Emergency (ER) | payer MEDICARE, MEDICAID, SELFPAY ==
--- NOTE | 2020-09-06 09:28 | W.ED.GENAD ---
Discharge Plan Disposition Patient Disposition: HOME Condition: Good Discharge Details Clinical Impression: Vomiting, Acute epigastric pain Primary Care Provider: José Miguel Flores ED Provider: James Faria Home Meds and New Rx's Prescriptions: New sucralfate [Carafate] 1 gram tablet 1 g PO BID 7 Days Qty: 14 RF: 0 Continued epinephrine 0.3 mg/0.3 mL auto-injector 0.3 mg IJ DIRECTED PRN (Reason: Anaphylaxis) Qty: 2 RF: 0 betamethasone dipropionate 0.05 % ointment 1 applic topical BID Qty: 15 RF: 0 amitriptyline 10 mg tablet 10 mg PO QHS Qty: 30 RF: 0 simethicone 80 mg tablet,chewable 40 mg PO Q6H PRN PRNRF: 0 tamsulosin [Flomax] 0.4 mg capsule 0.4 mg PO DAILY RF: 0 triamcinolone acetonide 0.1 % cream 1 applic TP BID Qty: 30 RF: 1 apixaban 5 mg tablet 5 mg PO BID Qty: 180 RF: 3 mupirocin 2 % ointment 1 applic Topical BID PRN (Reason: impetigo) 10 Days Qty: 22 RF: 5 risperidone 0.25 mg tablet 0.25 mg PO BID Qty: 60 RF: 11 clonazepam 1 mg tablet 1 mg PO BID PRN (Reason: anxiety) Qty: 60 RF: 5 hydrocortisone 2.5 % ointment 1 applic TP BID PRN (Reason: neck rash) Qty: 28.35 RF: 1 sertraline 100 mg tablet 100 mg PO DAILY Qty: 90 RF: 3 acetaminophen [Tylenol Extra Strength] 500 mg tablet 1,000 mg PO TID PRN (Reason: pain/fever) Qty: 270 RF: 4 fluticasone propionate [Allergy Relief (fluticasone)] 50 mcg/actuation spray,suspension 1 spray MILLICENT DAILY PRN (Reason: allergy symptoms) Qty: 9.9 RF: 11 mupirocin 2 % ointment 1 applic topical BID Qty: 15 RF: 0 famotidine [Pepcid] 20 mg tablet 20 mg PO DAILY Qty: 90 RF: 3 cetirizine [Zyrtec] 10 mg tablet 10 mg PO DAILY Qty: 90 RF: 3 pantoprazole 40 mg tablet,delayed release (DR/EC) 40 mg PO BID Qty: 180 RF: 3 epinephrine [EpiPen 2-Farrukh] 0.3 mg/0.3 mL auto-injector 0.3 mg IM ONCE Qty: 2 RF: 0 Discharge Instructions Instructions: Ondansetron (By mouth), Gallstones (ED), Abdominal Pain (ED) Additional Instructions: At this time your CAT scan and ultrasound shows very reassuring, there is evidence of a small gallstone in your gallbladder. This may have been a component of your symptoms however I think the major cause is likely the irritation in your stomach and esophagus. Please avoid any spicy foods or tomato-based products. Please continue to take the antiacid medication at home. I am adding a prescription of Carafate which will help reduce the irritation in your stomach. This has been sent to your pharmacy. Please follow-up with surgery on an outpatient basis for further discussion about your gallstones in your gallbladder. You are being sent home with a small bottle of Zofran which is a nausea medicine. Please take this as needed for nausea. If you notice any worsening of your symptoms, or any new symptoms such as vomiting, diarrhea, fever, chills, shortness of breath, chest pain, numbness, weakness, or fainting , please return immediately to the emergency department for reevaluation. Please follow up with your primary care provider as soon as possible for reassessment and reevaluation. As always, it was a pleasure participating in your medical care today. Referrals: José Miguel Flores [Primary Care Provider] - Medical Decision Making 34-year-old male with a past medical history of debilitating anxiety, bipolar, priapism's, hereditary spherocytosis GERD, IVC filter, PEs and DVTs, pulmonary artery hypertension, esophagitis, who presents today for vomiting and left upper quadrant epigastric pain. Patient states that he has been vomiting for the last 24 hours, he denies any bladder or hemoptysis. He denies any diarrhea. He states that he has felt notably dehydrated and has not been able to keep much down. He has gotten slightly dizzy because of this. He denies any chest pain, chest tightness or shortness of breath. He denies any tearing or ripping sensation. He states that he has been taking his medications at home as directed. He denies fever chills or any other sick contacts at home. He has not had any relieving factors. He denies any other complaints at this time. Physical exam demonstrates mild left upper quadrant abdominal tenderness, generalized tenderness throughout the abdomen otherwise. No genital tenderness. No flank or CVA tenderness. Dry mucous membranes. Differential includes esophagitis versus gastritis, pancreatitis, urinary pathology, unlikely cardiac etiology. We will evaluate for these, get a CT scan, control his pain, give IV and oral antacid medication, monitor closely and reassess. 3:23 PM Patient laboratory work-up has returned, normal white count, mild elevation in platelets, suspect a component of dehydration. Electrolytes normal, no anion gap, total bili is elevated at 3.1 which is slightly atypical, upper conjugated is normal. There may be a component of Gilbert syndrome. CT scan shows no acute process, CTA no abnormality, gallbladder ultrasound does show evidence of a single gallstone, no dilatation of any of the ducts, no evidence of cholecystitis. On reassessment the patient has complete resolution of his symptoms and is feeling much better. Tolerating p.o. No other complaints at this time. I did contact the patient's father and also discussed the case with him. We spoke for quite some time as the patient is slightly poor historian here. Currently with the patient's resolution of his symptomatology, normal hemodynamics, and otherwise unremarkable work-up I feel that he is stable for discharge. Will recommend Carafate at home, will place referral for outpatient surgical eval for the patient's gallstone. I have extensively reviewed the treatment plan and discharge instructions with the patient and their family. I have addressed all patient concerns at this time. The patient and family was made aware of what symptoms to monitor for that would warrant a return to the emergency department. Discussed the plan with the patient and family, they demonstrate verbal understanding and agreement with our assessment and plan at this time. The documentation in this chart was dictated using [employer] dictation software. Please excuse any dictation errors. FINDINGS: Vascular Structures: Celiac [place]/SMA: No evidence of stenosis. Renal Arteries: No evidence of stenosis. There is a single renal artery perfusing each kidney. Aorta: No aneurysm. No dissection. No significant atherosclerotic changes. Pelvis: Iliac Arteries: No evidence of stenosis. Common Femoral Arteries: No evidence of stenosis. IVC filter, unchanged in position. Soft Tissues: Lung bases:Normal. Liver: Normal density. No measurable mass. Gallbladder and biliary tract: No radiodense calculus or dilation. Pancreas: Normal density, no abnormal calcifications or inflammatory process. Spleen: Normal. Kidneys: Normal size, contour and axis. No radiodense stones or obstructive uropathy. No masses seen. Adrenal glands: No masses seen. Bladder: Symmetric distention, no gross wall thickening. Bowel: No obstruction or bowel wall thickening. Peritoneal cavity: No ascites, collection or mesenteric inflammatory response. Bones: Degenerative disc changes at L5-S1. Lymph nodes: Within normal limits. IMPRESSION: Normal CT Angiogram of the Abdomen. EKG 9: 58 Rate 85, intervals normal, sinus rhythm, no significant ST elevation or depression. Mild artifact present. Q waves are noted in leads II, III, and aVF, however these are unchanged from prior EKG from 07/29/2020 HPI General Date/Time Provider Initiated Documentation: 09/06/20 09:24. HPI Narrative: 34-year-old male with a past medical history of debilitating anxiety, bipolar, priapism's, hereditary spherocytosis GERD, IVC filter, PEs and DVTs, pulmonary artery hypertension, esophagitis, who presents today for vomiting and left upper quadrant epigastric pain. Patient states that he has been vomiting for the last 24 hours, he denies any bladder or hemoptysis. He denies any diarrhea. He states that he has felt notably dehydrated and has not been able to keep much down. He has gotten slightly dizzy because of this. He denies any chest pain, chest tightness or shortness of breath. He denies any significant urinary complaints. He denies any tearing or ripping sensation. He states that he has been taking his medications at home as directed. He denies fever chills or any other sick contacts at home. He has not had any relieving factors. He denies any other complaints at this time. Related Data Home Medications Medication Instructions Recorded Confirmed epinephrine 0.3 mg/0.3 mL 0.3 mg IJ DIRECTED PRN #2 kit 03/10/19 07/16/20 injection, auto-injector simethicone 80 mg chewable tablet 40 mg PO Q6H PRN PRN tab 03/10/19 07/16/20 tamsulosin 0.4 mg capsule 0.4 mg PO DAILY 09/15/19 07/16/20 triamcinolone acetonide 0.1 % 1 applic TP BID #30 gm 10/06/19 07/16/20 topical cream apixaban 5 mg tablet 5 mg PO BID #180 tab 12/22/19 07/16/20 mupirocin 2 % topical ointment 1 applic TOPICAL BID PRN 10 Days 01/16/20 07/16/20 #22 gm risperidone 0.25 mg tablet 0.25 mg PO BID #60 tab 03/21/20 07/16/20 clonazepam 1 mg tablet 1 mg PO BID PRN #60 tab 04/02/20 07/16/20 hydrocortisone 2.5 % topical 1 applic TP BID PRN #28.35 gm 04/04/20 07/16/20 ointment acetaminophen 500 mg tablet 1,000 mg PO TID PRN #270 tab 05/03/20 07/16/20 sertraline 100 mg tablet 100 mg PO DAILY #90 tab 05/03/20 07/16/20 betamethasone dipropionate 0.05 % 1 applic TOPICAL BID #15 g 06/13/20 07/16/20 topical ointment fluticasone propionate 50 1 spray MILLICENT DAILY PRN #9.9 ml 07/05/20 07/16/20 mcg/actuation nasal spray,suspension amitriptyline 10 mg tablet 10 mg PO QHS #30 tab 07/26/20 07/26/20 epinephrine [EpiPen 2-Farrukh] 0.3 mg IM ONCE #2 ea 07/29/20 famotidine 20 mg tablet 20 mg PO DAILY #90 tab 08/16/20 mupirocin 2 % topical ointment 1 applic TOPICAL BID #15 g 08/16/20 cetirizine 10 mg tablet 10 mg PO DAILY #90 tab-cap 08/23/20 pantoprazole 40 mg tablet,delayed 40 mg PO BID #180 tab 08/29/20 release sucralfate [Carafate] 1 g PO BID 7 Days #14 tab 09/06/20 Previous Rx's Medication Instructions Recorded epinephrine 0.3 mg/0.3 mL 0.3 mg IJ DIRECTED PRN #2 kit 03/10/19 injection, auto-injector triamcinolone acetonide 0.1 % 1 applic TP BID #30 gm 10/06/19 topical cream apixaban 5 mg tablet 5 mg PO BID #180 tab 12/22/19 mupirocin 2 % topical ointment 1 applic TOPICAL BID PRN 10 Days 01/16/20 #22 gm risperidone 0.25 mg tablet 0.25 mg PO BID #60 tab 03/21/20 clonazepam 1 mg tablet 1 mg PO BID PRN #60 tab 04/02/20 hydrocortisone 2.5 % topical 1 applic TP BID PRN #28.35 gm 04/04/20 ointment acetaminophen 500 mg tablet 1,000 mg PO TID PRN #270 tab 05/03/20 sertraline 100 mg tablet 100 mg PO DAILY #90 tab 05/03/20 betamethasone dipropionate 0.05 % 1 applic TOPICAL BID #15 g 06/13/20 topical ointment fluticasone propionate 50 1 spray MILLICENT DAILY PRN #9.9 ml 07/05/20 mcg/actuation nasal spray,suspension amitriptyline 10 mg tablet 10 mg PO QHS #30 tab 07/26/20 epinephrine [EpiPen 2-Farrukh] 0.3 mg IM ONCE #2 ea 07/29/20 famotidine 20 mg tablet 20 mg PO DAILY #90 tab 08/16/20 mupirocin 2 % topical ointment 1 applic TOPICAL BID #15 g 08/16/20 cetirizine 10 mg tablet 10 mg PO DAILY #90 tab-cap 08/23/20 pantoprazole 40 mg tablet,delayed 40 mg PO BID #180 tab 08/29/20 release sucralfate [Carafate] 1 g PO BID 7 Days #14 tab 09/06/20 Allergies Allergy/AdvReac Type Severity Reaction Status Date / Time bacitracin Allergy Verified 09/06/20 09:34 dog dander Allergy Unverified 09/06/20 09:34 beer Allergy Severe Anaphylaxsi Uncoded 09/06/20 09:34 s unknown anphalyxis Allergy Severe Anaphylaxsi Uncoded 09/06/20 09:34 s General CONSTANCE: 3 Review of Systems All systems reviewed & are unremarkable except as noted in HPI and below PFSH Medical History Anxiety extreme and crippling Bipolar disorder GERD with esophagitis Leg numbness Surgical History H/O hernia repair Unspecified site, repaired x3 History of splenectomy Social History Smoking/Tobacco Use Status: Never Smoking risk assessment performed?: Yes Alcohol Intake: never Drug use: Never Substance use type: does not use Current gender identity: male Do you feel safe at home: Yes Do you feel safe in your relationship?: Yes Exam Narrative Exam Narrative: 1.Const: Well-nourished, Well-developed, appearing stated age 2.Eyes: PERRL, no conjunctival injection, and symmetrical lids. 3.ENT: Atraumatic external nose and ears. Dry MM. Neck: Symmetric, trachea midline, No thyromegaly. 4.CVS: +S1/S2, No murmurs or gallops. Peripheral pulses 2+ and equal in all extremities. Brisk capillary refill in all extremities. 5.RESP: Unlabored respiratory effort. Clear to auscultation bilaterally. No wheezes rales or rhonchi 6.GI: Soft, nondistended, mild tenderness in the left upper quadrant focally, but also some mild generalized tenderness throughout. Genital exam was performed with female nurse Gabbi at bedside. No scrotal or penile tenderness. 7.MSK: Normocephalic/Atraumatic, Extremities w/o deformity or ttp No cyanosis or clubbing, Normal movement of all extremities 8.Skin: Warm, Dry. No rashes or lesions. 9.Neuro: ball points inspector II-XII grossly intact. Sensation grossly intact, no focal neurologic deficits. 10.Psych: (AAO) x3. Notably anxious, difficulty speaking secondary to the anxiety which is his baseline during ED visits. Is able to answer all questions clearly though and demonstrates sound mind.
[2020-09-06 09:29] VITALS: BP 127/78; PULSE 92; RESP 24; TEMP 36.6; O2SAT 94
--- NOTE | 2020-09-06 09:30 | DI.CT_ITS ---
EXAM: CT ABDOMEN PELVIS CTA CLINICAL HISTORY: epigastric and generalized abd pain, vomiting. TECHNIQUE: Imaging Protocol: Axial CT angiography was performed with multi-slice acquisition and m ulti-planar and/or 3D reconstructions. CONTRAST MATERIAL: Intravenous: Omnipaque 350 Contrast volume:100 cc Oral: no COMPARISON: CT CT THORAX ABD/PEL CTA from 07/16/2020 FINDINGS: Vascular Structures: Celiac [place]/SMA: No evidence of stenosis. Renal Arteries: No evidence of stenosis. There is a single renal artery perfusing each kidney. Aorta: No aneurysm. No dissection. No significant atherosclerotic changes. Pelvis: Iliac Arteries: No evidence of stenosis. Common Femoral Arteries: No evidence of stenosis. IVC filter, unchanged in position. Soft Tissues: Lung bases:Normal. Liver: Normal density. No measurable mass. Gallbladder and biliary tract: No radiodense calculus or dilation. Pancreas: Normal density, no abnormal calcifications or inflammatory process. Spleen: Normal. Kidneys: Normal size, contour and axis. No radiodense stones or obstructive uropathy. No masses seen. Adrenal glands: No masses seen. Bladder: Symmetric distention, no gross wall thickening. Bowel: No obstruction or bowel wall thickening. Peritoneal cavity: No ascites, collection or mesenteric inflammatory response. Bones: Degenerative disc changes at L5-S1. Lymph nodes: Within normal limits. IMPRESSION: Normal CT Angiogram of the Abdomen. RADIATION DOSE DELIVERED: 1,108.84mGy.cm Total DLP DATA REPOSITORY: All CT scans at this facility are submitted to the National Radiology Data Registry (NRDR) Dose Index Registry (DIR) with the [employer] (ACR). RADIATION OPTIMIZATION: All CT scans at this facility use at least one of these dose optimization te chniques: automated exposure control; mA and/or kV adjustment per patient size (includes targeted exa ms where dose is matched to clinical indication); or iterative reconstruction.
--- NOTE | 2020-09-06 09:30 | RT.EKG_ITS ---
APPROVED REPORT Exam: Resting ECG Patient Location: E HR:85 bpm ECG Measurements Heart Rate 85 AXIS MO 169 P 56 QRSd 92 QRS 44 QT 353 T 57 QTc 421 Conclusion Sinus rhythm...normal P axis, V-rate 60- 99 Physician: Rate 85, intervals normal, sinus rhythm, no significant ST elevation or depression. Mild artifact present. Q waves are noted in leads II, III, and aVF, however these are unchanged from [facility] r EKG from 07/29/2020
[2020-09-06] MEDS: Ondansetron 4 MG/2 ML VIAL IVP (10:08)
[2020-09-06] MEDS: Normal Saline 1,000 ML 1000 ML IV (10:08)
[2020-09-06] MEDS: MORPHine 10 MG/ML VIAL 2 MG IVP (10:10)
[2020-09-06] MEDS: Pantoprazole 40 MG VIAL IVP (10:10)
[2020-09-06 10:11] LABS: Abs Immature Grans 0.03 10^3/uL (0.0-0.06); Absolute Basophil Count 0.02 10^3/uL (0.0-0.2); Absolute Eosinophil Count 0.11 10^3/uL (0.0-0.7); Absolute Lymphocyte Count 4.58 10^3/uL (1.2-3.4); Absolute Monocyte Count 1.34 10^3/uL (0.1-0.8); Absolute Neutrophil Count 6.03 10^3/uL (1.2-6.7); Basophils % 0.2; Eosinophils % 0.9; HCT 45.6 % (40.0-50.0); HGB 15.6 g/dL (13.5-17.5); Immature Grans % 0.2; Lymphocytes % 37.8; MCHC 34.2 % (32.0-36.0); MCV 90.7 fL (80-95); MPV 9.8 fL (8.0-11.0); Monocytes % 11.1; Neutrophils % 49.8; Nucleated RBC 0 %; Platelet Count 553 10^3/uL (130-400); RBC 5.03 10^6/uL (4.36-5.78); RDW 14.3 % (11.8-14.1); RDW-SD 47.1 fL; WBC 12.11 10^3/uL (4.4-10.8)
[2020-09-06] MEDS: Omnipaque 350 MG/ML 100 ML BTL IJ (10:20)
[2020-09-06] MEDS: Normal Saline - Diluent 50 ML VIAL IV (10:21)
[2020-09-06 10:27] LABS: ALT 38 U/L (16-63); AST 38 U/L (15-37); Albumin 4.2 g/dL (3.4-5.0); Alkaline Phosphatase 77 U/L (46-116); Anion Gap 7.5 mmol/L (3-11); BUN 14 mg/dL (7-18); Bilirubin, Total 3.1 mg/dL (0.2-1.0); CO2 28.5 mmol/L (21.0-32.0); CREATININE 1.1 mg/dL (0.70-1.30); Calcium 9.3 mg/dL (8.5-10.1); Chloride 101 mmol/L (98-107); Glucose 103 mg/dL (74-106); Lipase 77 U/L (73-393); Potassium 3.8 mmol/L (3.5-5.1); Sodium 137 mmol/L (136-145); Total Protein 8.7 g/dL (6.4-8.2)
[2020-09-06 10:29] LABS: Troponin I < 0.05 ng/mL (<0.06)
[2020-09-06] MEDS: FAMOTIDINE 20 MG/50 ML BAG 100 MG IVPB (10:42)
--- NOTE | 2020-09-06 10:45 | DI.US_ITS ---
EXAM: US ABDOMEN LIMITED CLINICAL HISTORY: eval gb TECHNIQUE: Ultrasound abdomen performed using standard protocol. COMPARISON: CT CT ABDOMEN PELVIS CTA from 09/06/[address] ABDOMEN PELVIS CTA from 09/06/2020 FINDINGS: LIVER: Normal size and echogenicity. No focal liver lesions are seen.. GALLBLADDER: Multiple small mobile stones are noted. No evidence of wall thickening. No pericholecys tic fluid identified. FOUNTAIN'S SIGN: Negative. BILIARY SYSTEM: No intrahepatic or extrahepatic biliary ductal dilation. Right KIDNEY: Normal size.. No evidence of renal calculi. No evidence of hydronephrosis. No renal ma ss or cyst identified. PANCREAS: Normal where visualized. SPLEEN: Not imaged ABDOMINAL AORTA AND IVC: Visualized portions normal caliber. ASCITES: None seen. IMPRESSION: Cholelithiasis. No evidence of acute cholecystitis. DATA REPOSITORY:
[2020-09-06 11:08] LABS: Bilirubin, Direct 0.4 mg/dL (0.0-0.2)
[2020-09-06 11:09] VITALS: BP 107/64; PULSE 74; RESP 18; TEMP 37.1; O2SAT 94
--- NOTE | 2020-09-06 13:45 | NUR.NOTE ---
Nursing Note: Patient received Zofran 4 mg x 3 tabs TO GO. 1 Tab every 8 hours as needed for N/V.
--- NOTE | 2020-09-07 07:21 | NUR.NOTE ---
Referral [facility]ed to [facility] f/u in about a month for gallstones.Nursing Note:
== END 2020-09-06 13:45 | disposition home or self-care (01) ==
PROVIDERS: Emergency Provider Student in an Organized Health Care Education/Training Program; PCP Family Medicine
DX: K80.20 Calculus of gallbladder without cholecystitis without obstruction (principal); R11.2 Nausea with vomiting, unspecified; R10.13 Epigastric pain; E86.0 Dehydration
CPT/HCPCS: 36415; 80053; 83690; 93005; 96361; 96365; 96375; 99285; 74174; 76705; 81003; 82248; 83735; 84484; 85025; 93010; J2270; J2405; J3490

== ENCOUNTER → 2020-10-01 10:43 | Outpatient (BNVA) | payer MEDICARE, MEDICAID, SELFPAY | PROVIDERS: PCP Family Medicine; Referring Provider Family Medicine; Visit Provider Surgery | DX: K80.20 Calculus of gallbladder without cholecystitis without obstruction (principal); F41.9 Anxiety disorder, unspecified | CPT/HCPCS: 99213; 99214 ==

== ENCOUNTER 2020-11-04 18:34 | Emergency (ER) | payer MEDICARE, MEDICAID, SELFPAY ==
[2020-11-04 19:00] VITALS: BP 147/90; PULSE 97; RESP 22; TEMP 36.7; O2SAT 96
--- NOTE | 2020-11-04 19:15 | DI.CT_ITS ---
Exam(s) CT ABDOMEN PELVIS W EXAM: CT ABDOMEN PELVIS W CLINICAL HISTORY: rectal and abdomen pain TECHNIQUE: COMPARISON: CT CT ABDOMEN PELVIS CTA from 09/06/2020 FINDINGS: CT examination of the abdomen and pelvis was performed with bolus infusion of 100 cc of Omnipaque 350 . Images obtained through the lung bases are unremarkable. The liver appears normal with no evidence of a focal mass. Spleen has been surgically removed and there is an apparent regenerating splenic nodule in left upper quadrant period. Gallbladder and bile ducts are unremarkable. Pancreas is unremarkable in appearance. Adrenals appear normal bilaterally. Kidneys appear normal with no evidence of renal mass, hydronephrosis, or nephrolithiasis. Urinary bl adder is nearly empty. There is no evidence of abdominal or pelvic adenopathy. Abdominal aorta is of normal diameter and no abnormality of major visceral branches is seen Note is made of an IVC filter in place, unchanged in position from September 06 CT. Appendix is normal. No evidence diverticulitis or bowel obstruction. No significant abdominal wall hernia seen. Impression: No evidence of acute intra-abdominal process. RADIATION DOSE DELIVERED: 1,610.42mGy.cm Total DLP 1,610.42mGy.cm Total DLP DATA REPOSITORY: All CT scans at this facility are submitted to the National Radiology Data Registry (NRDR) Dose Index Registry (DIR) with the [employer] (ACR). RADIATION OPTIMIZATION: All CT scans at this facility use at least one of these dose optimization te chniques: automated exposure control; mA and/or kV adjustment per patient size (includes targeted exa ms where dose is matched to clinical indication); or iterative reconstruction.
[2020-11-04 19:20] LABS: Bilirubin Negative (Negative); Blood Negative (Negative); Clarity Clear (Clear); Glucose Negative (Negative); Ketones Trace mg/dL (Negative); Leukocyte Esterase Negative (Negative); Nitrite Negative (Negative); Specific Gravity >= 1.030 (1.005-1.025); Urobilinogen 0.2 EU/dL (Up TO 0.2); pH 5.5 (5-8)
--- NOTE | 2020-11-04 19:26 | ED.GENADUL_ITS ---
Discharge Plan Disposition Patient Disposition: HOME Condition: Stable Discharge Details Clinical Impression: Pain, rectal, Abdominal pain Primary Care Provider: José Miguel Flores ED Provider: Dewayne Felix [facility] Meds and New Rx's Prescriptions: Continued epinephrine 0.3 mg/0.3 mL auto-injector 0.3 mg IJ DIRECTED PRN (Reason: Anaphylaxis) Qty: 2 RF: 0 amitriptyline 10 mg tablet 10 mg PO QHS Qty: 30 RF: 0 simethicone 80 mg tablet,chewable 40 mg PO Q6H PRN PRNRF: 0 tamsulosin [Flomax] 0.4 mg capsule 0.4 mg PO DAILY RF: 0 triamcinolone acetonide 0.1 % cream 1 applic TP BID Qty: 30 RF: 1 apixaban 5 mg tablet 5 mg PO BID Qty: 180 RF: 3 mupirocin 2 % ointment 1 applic Topical BID PRN (Reason: impetigo) 10 Days Qty: 22 RF: 5 risperidone 0.25 mg tablet 0.25 mg PO BID Qty: 60 RF: 11 hydrocortisone 2.5 % ointment 1 applic TP BID PRN (Reason: neck rash) Qty: 28.35 RF: 1 sertraline 100 mg tablet 100 mg PO DAILY Qty: 90 RF: 3 acetaminophen [Tylenol Extra Strength] 500 mg tablet 1,000 mg PO TID PRN (Reason: pain/fever) Qty: 270 RF: 4 fluticasone propionate [Allergy Relief (fluticasone)] 50 mcg/actuation spray,suspension 1 spray MILLICENT DAILY PRN (Reason: allergy symptoms) Qty: 9.9 RF: 11 famotidine [Pepcid] 20 mg tablet 20 mg PO DAILY Qty: 90 RF: 3 cetirizine [Zyrtec] 10 mg tablet 10 mg PO DAILY Qty: 90 RF: 3 pantoprazole 40 mg tablet,delayed release (DR/EC) 40 mg PO BID Qty: 180 RF: 3 diclofenac sodium [Voltaren Arthritis Pain] 1 % gel 2 g topical QID PRN (Reason: back pain) Qty: 150 RF: 1 mupirocin 2 % ointment 1 applic topical BID Qty: 15 RF: 2 clonazepam 1 mg tablet 1 mg PO BID PRN (Reason: anxiety) Qty: 60 RF: 5 betamethasone dipropionate 0.05 % ointment 1 applic topical BID Qty: 15 RF: 0 epinephrine [EpiPen 2-Farrukh] 0.3 mg/0.3 mL auto-injector 0.3 mg IM ONCE Qty: 2 RF: 0 Discharge Instructions Additional Instructions: your cat scan and your lab work did not show any concerning findings and your exam also showed no significant abnormalities follow up with general surgery for an exam, you should be contacted with an appointment return to the emergency department for severe worsening pain, persistent vomit or fevers Medical Decision Making 34 yo male with hx of severe anxiety, prior pe on eliquis, comes in with chief complaint of rectal and abdomen pain for 3 days and hurts worse with wiping. He doesn't make eye contact and at most will say 2-3 words on exam due to his anxiety He states he had some blood on the toilet paper with wiping 2 days ago and has noticed some upper abdomen pain. No fevers or vomit. He did allow me to perfrom a rectal exam with nurse at bedside and has no visible external hemorrhoids or fissures and on internal exam no palpable masses. Skin around rectum has very mild erythema which appears to be from irritation, does not have the appearance of cellulitis. He also notes upper abdomen pain and has pain with palpation to the right upper and mid abdomen. Given rectal pain without clear reason why and the abdomen pain will obtain labs and ct to evaluate for cholecystitis vs pancreatitis vs abscess. labs and imaging unremarkable and no abscess seen, still no guarding or rebound on exam. Will refer him to general surgery for possible anoscopy, return precautions given Differential Diagnosis Differential Diagnosis: internal hemorrhoid, abscess, pancreatitis Medical Records Medical records reviewed: Yes I reviewed the patient's medical records. Imaging Data Radiologic Study: Attestation: I personally reviewed and interpreted this imaging study as follows: Imaging: CT Scan Radiologist's impression: no acute findings Lab Data Lab results reviewed: Yes I reviewed the patient's lab results. HPI General Mode of arrival: ambulatory . Date/Time Provider Initiated Documentation: 11/04/20 18:35 . Limitations to Documentation: other (severe anxiety) . Information obtained by: patient . History of Present Illness 34 year old M presents to the emergency department with the chief complaint of rectal pain, described as moderate, Patient started experiencing this day(s) (3) and it has been constant. No relieving factors improve symptom(s), No exacerbating factors reported . Patient did receive the following treatments prior to arrival, none Related Data Home Medications Medication Instructions Recorded Confirmed epinephrine 0.3 mg/0.3 mL 0.3 mg IJ DIRECTED PRN #2 kit 03/10/19 07/16/20 injection, auto-injector simethicone 80 mg chewable tablet 40 mg PO Q6H PRN PRN tab 03/10/19 07/16/20 tamsulosin 0.4 mg capsule 0.4 mg PO DAILY 09/15/19 07/16/20 triamcinolone acetonide 0.1 % 1 applic TP BID #30 gm 10/06/19 07/16/20 topical cream apixaban 5 mg tablet 5 mg PO BID #180 tab 12/22/19 07/16/20 mupirocin 2 % topical ointment 1 applic TOPICAL BID PRN 10 Days 01/16/20 07/16/20 #22 gm risperidone 0.25 mg tablet 0.25 mg PO BID #60 tab 03/21/20 07/16/20 hydrocortisone 2.5 % topical 1 applic TP BID PRN #28.35 gm 04/04/20 07/16/20 ointment acetaminophen 500 mg tablet 1,000 mg PO TID PRN #270 tab 05/03/20 07/16/20 sertraline 100 mg tablet 100 mg PO DAILY #90 tab 05/03/20 07/16/20 fluticasone propionate 50 1 spray MILLICENT DAILY PRN #9.9 ml 07/05/20 07/16/20 mcg/actuation nasal spray,suspension amitriptyline 10 mg tablet 10 mg PO QHS #30 tab 07/26/20 07/26/20 epinephrine [EpiPen 2-Farrukh] 0.3 mg IM ONCE #2 ea 07/29/20 famotidine 20 mg tablet 20 mg PO DAILY #90 tab 08/16/20 cetirizine 10 mg tablet 10 mg PO DAILY #90 tab-cap 08/23/20 pantoprazole 40 mg tablet,delayed 40 mg PO BID #180 tab 08/29/20 release diclofenac sodium 1 % topical gel 2 g TOPICAL QID PRN #150 g 10/03/20 betamethasone dipropionate 0.05 % 1 applic TOPICAL BID #15 g 10/14/20 topical ointment clonazepam 1 mg tablet 1 mg PO BID PRN #60 tab 10/14/20 mupirocin 2 % topical ointment 1 applic TOPICAL BID #15 g 10/14/20 Previous Rx's Medication Instructions Recorded epinephrine 0.3 mg/0.3 mL 0.3 mg IJ DIRECTED PRN #2 kit 03/10/19 injection, auto-injector triamcinolone acetonide 0.1 % 1 applic TP BID #30 gm 10/06/19 topical cream apixaban 5 mg tablet 5 mg PO BID #180 tab 12/22/19 mupirocin 2 % topical ointment 1 applic TOPICAL BID PRN 10 Days 01/16/20 #22 gm risperidone 0.25 mg tablet 0.25 mg PO BID #60 tab 03/21/20 hydrocortisone 2.5 % topical 1 applic TP BID PRN #28.35 gm 04/04/20 ointment acetaminophen 500 mg tablet 1,000 mg PO TID PRN #270 tab 05/03/20 sertraline 100 mg tablet 100 mg PO DAILY #90 tab 05/03/20 fluticasone propionate 50 1 spray MILLICENT DAILY PRN #9.9 ml 07/05/20 mcg/actuation nasal spray,suspension amitriptyline 10 mg tablet 10 mg PO QHS #30 tab 07/26/20 epinephrine [EpiPen 2-Farrukh] 0.3 mg IM ONCE #2 ea 07/29/20 famotidine 20 mg tablet 20 mg PO DAILY #90 tab 08/16/20 cetirizine 10 mg tablet 10 mg PO DAILY #90 tab-cap 08/23/20 pantoprazole 40 mg tablet,delayed 40 mg PO BID #180 tab 08/29/20 release diclofenac sodium 1 % topical gel 2 g TOPICAL QID PRN #150 g 10/03/20 betamethasone dipropionate 0.05 % 1 applic TOPICAL BID #15 g 10/14/20 topical ointment clonazepam 1 mg tablet 1 mg PO BID PRN #60 tab 10/14/20 mupirocin 2 % topical ointment 1 applic TOPICAL BID #15 g 10/14/20 Allergies Allergy/AdvReac Type Severity Reaction Status Date / Time bacitracin Allergy Verified 11/04/20 19:28 dog dander Allergy Unverified 11/04/20 19:28 beer Allergy Severe Anaphylaxsi Uncoded 11/04/20 19:28 s unknown anphalyxis Allergy Severe Anaphylaxsi Uncoded 11/04/20 19:28 s General Stated Complaint: GenMedical CONSTANCE: 3 Review of Systems All systems reviewed & are unremarkable except as noted in HPI and below Constitutional Constitutional: Denies chills, Denies fever(s) and Denies weakness Cardiovascular Cardiovascular: Denies chest pain and Denies dyspnea Respiratory Respiratory: Denies cough and Denies dyspnea Gastrointestinal Gastrointestinal: Denies nausea and Denies vomiting Neurologic Neurologic: Denies weakness [facility] Medical History Anxiety extreme and crippling Bipolar disorder DVT of axillary vein, acute bilateral (~02/2019) [facility] Esophageal foreign body (~05/2018) Esophagitis determined by endoscopy (~05/2018) Essential hypertension GERD with esophagitis Leg numbness PAH (pulmonary artery hypertension) 02/28/19 [facility] ECHO (MILD) Priapism, drug-induced Pulmonary embolism, bilateral (~02/2019) [facility] PE Dr. Flores [facility] 08/2019; RECURRENT Thyroid mass (~02/2019) [facility] Tricuspid regurgitation 02/28/19 [facility] ECHO; MILD TO MOD Surgical History H/O hernia repair Unspecified site, repaired x3 History of splenectomy Priapism (~08/2019) 09/11/19 [facility]; S/P PENILE SHUNT (AL-GHORAB) S/P IVC filter (~08/2019) [facility] Social History Smoking/Tobacco Use Status: Never Smoking risk assessment performed?: Yes Alcohol Intake: never Drug use: Never Substance use type: does not use Current gender identity: male Do you feel safe at home: Yes Do you feel safe in your relationship?: Yes Exam Const General: anxious Orientation: alert [facility] Head: normal to inspection Ears: external ears normal General nose exam: external nose normal Mouth: moist mucous membranes Eyes General: appearance normal, both eyes and all related structures Neck Neck: normal visual inspection Resp Effort & Inspection: normal respiratory effort and able to speak in complete sentences Cardio Rate: regular rate GI Palpation: not rigid and tender Skin General skin exam: no rashes or lesions noted Neuro General: patient alert and patient oriented x3 Extrem General: normal to inspection Psych Mental Status: mental status grossly normal Course Vital Signs Vital signs: Vital Signs Temperature 36.7 C 11/04/20 19:00 Pulse 97 H 11/04/20 19:00 Respiratory Rate 22 11/04/20 19:00 Blood Pressure 147/90 H 11/04/20 19:00 Pulse Oximetry 96 11/04/20 19:00 Temperature 36.7 C 11/04/20 19:00 Temperature Source Skin 11/04/20 19:00 Pulse 97 H 11/04/20 19:00 Respiratory Rate 22 11/04/20 19:00 Blood Pressure 147/90 H 11/04/20 19:00 Blood Pressure Position Sitting 11/04/20 19:00 Pulse Oximetry 96 11/04/20 19:00 Oxygen Delivery Method Room Air 11/04/20 19:00 Oxygen Flow Rate 0 11/04/20 19:00 Pain Level 5 11/04/20 19:00 Lab/Test Results Lab/Test Results: 11/04/20 19:00 Urine - Voided Urine Culture - Pending Laboratory Tests Range/Units 11/04/20 19:00 Urine Color (Yellow) Yellow Urine Clarity (Clear) Clear Urine pH (5-8) 5.5 Ur Specific [place] (1.005-1.025) >= 1.030 H Urine Protein (Negative) mg/dL Trace H Urine Ketones (Negative) mg/dL Trace H Urine Blood (Negative) Negative Urine Nitrite (Negative) Negative Urine Bilirubin (Negative) Negative Urine Urobilinogen (Up TO 0.2) EU/dL 0.2 Ur Leukocyte Esterase (Negative) Negative Urine Glucose (Negative) mg/dL Negative
[2020-11-04 19:30] LABS: Bacteria Negative HPF (Negative); C & S Indicated? C&S Done As Ordered; Casts Negative LPF (Negative); Crystals Negative HPF (Negative); Epithelial Cells Rare HPF (Negative); Mucus Trace (Negative); RBC 0-2 HPF (0-2); WBC 0-2 HPF (0-5)
[2020-11-04 19:48] LABS: Abs Immature Grans 0.02 10^3/uL (0.0-0.06); Absolute Basophil Count 0.04 10^3/uL (0.0-0.2); Absolute Eosinophil Count 0.11 10^3/uL (0.0-0.7); Absolute Lymphocyte Count 3.91 10^3/uL (1.2-3.4); Absolute Monocyte Count 1.04 10^3/uL (0.1-0.8); Absolute Neutrophil Count 7.16 10^3/uL (1.2-6.7); Basophils % 0.3; Eosinophils % 0.9; HCT 45.9 % (40.0-50.0); HGB 15.6 g/dL (13.5-17.5); Immature Grans % 0.2; Lymphocytes % 31.8; MCH 31.3 pg (27.0-33.0); Monocytes % 8.5; Neutrophils % 58.3; Nucleated RBC 0 %; Platelet Count 493 10^3/uL (130-400); RBC 4.99 10^6/uL (4.36-5.78); RDW 14.5 % (11.8-14.1); RDW-SD 49.1 fL; WBC 12.28 10^3/uL (4.4-10.8)
[2020-11-04 19:57] LABS: PTT Activated 24.3 sec (21.0-27.5); Prothrombin Time 10.4 sec (9.3-11.0)
[2020-11-04] MEDS: Normal Saline - Diluent 50 ML VIAL IV (20:01)
[2020-11-04] MEDS: Omnipaque 350 MG/ML 100 ML BTL IJ (20:01)
[2020-11-04 20:03] LABS: ALT 26 U/L (16-63); AST 21 U/L (15-37); Albumin 4.4 g/dL (3.4-5.0); Alkaline Phosphatase 76 U/L (46-116); Anion Gap 8.5 mmol/L (3-11); BUN 10 mg/dL (7-18); Bilirubin, Direct 0.3 mg/dL (0.0-0.2); Bilirubin, Total 2.1 mg/dL (0.2-1.0); CO2 28.5 mmol/L (21.0-32.0); Calcium 9.2 mg/dL (8.5-10.1); Chloride 104 mmol/L (98-107); Glucose 102 mg/dL (74-106); Lipase 68 U/L (73-393); Potassium 3.9 mmol/L (3.5-5.1); Sodium 141 mmol/L (136-145); Total Protein 8.7 g/dL (6.4-8.2)
[2020-11-04] MEDS: Normal Saline 1,000 ML 1000 ML IV (20:11)
--- NOTE | 2020-11-04 20:23 | DI.VRAD_ITS ---
PROCEDURE INFORMATION: Exam: CT Abdomen And Pelvis With Contrast Exam date and time: 11/04/2020 7:26 PM Age: 34 years old Clinical indication: Abdominal pain and other: Rectal; Prior surgery; Patient HX: Rectal and abdominal pain TECHNIQUE: Imaging protocol: Computed tomography of the abdomen and pelvis with contrast. COMPARISON: CT ABDOMEN PELVIS CTA 09/06/2020 10:21 AM FINDINGS: Liver: The liver is normal. Gallbladder and bile ducts: Normal. No calcified stones. No ductal dilation. Pancreas: Pancreatic head and body unremarkable. Pancreatic tail foreshortened possibly surgically absent unchanged. 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 Adrenal glands: Normal. No mass. Kidneys and ureters: Normal. No hydronephrosis. Stomach and bowel: Unremarkable. No obstruction. No mucosal thickening. Appendix: No evidence of appendicitis. Intraperitoneal space: Unremarkable. No free air. No significant fluid collection. Vasculature: IVC filter with apex below the renal veins. [place] and several tines of the filter penetrating the wall of the IVC unchanged. Lymph nodes: Unremarkable. No enlarged lymph nodes. Urinary bladder: There is nonspecific bladder wall thickening. This is likely due to incomplete distention. Reproductive: Unremarkable as visualized. Bones/joints: Mild degenerative disc disease L5-S1. No acute fracture. Soft tissues: Unremarkable. IMPRESSION: No acute findings. Dictated and Authenticated by: Tyrel Vergara MD. Ordering:CRISTAL Buchanan MD
--- NOTE | 2020-11-04 20:29 | NUR.NOTE ---
Referral faxed to [facility] to f/u in 1 week for rectal pain.Nursing Note:
[2020-11-04 20:49] VITALS: BP 147/90; PULSE 97; RESP 22; TEMP 36.7; O2SAT 96
[2020-11-06 15:01] LABS: Chlamydia Result Negative (Negative); GC Result Negative (Negative)
== END 2020-11-04 20:46 | disposition home or self-care (01) ==
PROVIDERS: Emergency Provider Emergency Medicine; PCP Family Medicine
DX: K62.89 Other specified diseases of anus and rectum (principal); R10.10 Upper abdominal pain, unspecified
CPT/HCPCS: 36415; 80053; 83690; 87491; 87591; 96360; 99285; 74177; 81003; 81015; 82248; 85025; 85610; 85730; 87086; 99284; J3490

== ENCOUNTER 2021-01-21 03:27 | Outpatient (CLI) | payer MEDICARE, MEDICAID, SELFPAY ==
[2021-01-21 12:57] LABS: D-Dimer 125 ng/mlFEU (<500)
== END 2021-01-21 03:28 | disposition home or self-care (01) ==
LOC: LOS 03:27
PROVIDERS: PCP Family Medicine; Visit Provider Family Medicine
DX: R20.0 Anesthesia of skin (principal)
CPT/HCPCS: 36415; 85379

== ENCOUNTER 2021-02-11 09:25 | Emergency (ER) | payer MEDICARE, MEDICAID, SELFPAY ==
--- NOTE | 2021-02-11 09:30 | DI.RAD_ITS ---
Exam(s) XR HAND RT COMPLETE EXAM: XR HAND RT COMPLETE CLINICAL HISTORY: pain in right hand TECHNIQUE: COMPARISON: CR LEFT HAND COMPLETE from 10/22/2014 FINDINGS: Four views were obtained. No bony or soft tissue abnormality seen. No evidence of acute fracture or dislocation IMPRESSION: RADIATION DOSE DELIVERED: Total DLP
[2021-02-11 09:31] VITALS: BP 122/60; PULSE 89; RESP 18; TEMP 36.4; O2SAT 96
--- NOTE | 2021-02-11 09:46 | ED.GENADUL_ITS ---
Discharge Plan Disposition Patient Disposition: HOME Condition: Stable Discharge Details Clinical Impression: Hand pain, right Primary Care Provider: José Miguel Flores ED Provider: Dewayne Felix [place] Meds and New Rx's Prescriptions: Continued epinephrine 0.3 mg/0.3 mL auto-injector 0.3 mg IJ DIRECTED PRN (Reason: Anaphylaxis) Qty: 2 RF: 0 amitriptyline 10 mg tablet 10 mg PO QHS Qty: 30 RF: 0 apixaban 5 mg tablet 5 mg PO BID Qty: 180 RF: 3 simethicone 80 mg tablet,chewable 40 mg PO Q6H PRN PRNRF: 0 tamsulosin [Flomax] 0.4 mg capsule 0.4 mg PO DAILY RF: 0 mupirocin 2 % ointment 1 applic Topical BID PRN (Reason: impetigo) 10 Days Qty: 22 RF: 5 risperidone 0.25 mg tablet 0.25 mg PO BID Qty: 60 RF: 11 hydrocortisone 2.5 % ointment 1 applic TP BID PRN (Reason: neck rash) Qty: 28.35 RF: 1 sertraline 100 mg tablet 100 mg PO DAILY Qty: 90 RF: 3 acetaminophen [Tylenol Extra Strength] 500 mg tablet 1,000 mg PO TID PRN (Reason: pain/fever) Qty: 270 RF: 4 fluticasone propionate [Allergy Relief (fluticasone)] 50 mcg/actuation spray,suspension 1 spray MILLICENT DAILY PRN (Reason: allergy symptoms) Qty: 9.9 RF: 11 famotidine [Pepcid] 20 mg tablet 20 mg PO DAILY Qty: 90 RF: 3 cetirizine [Zyrtec] 10 mg tablet 10 mg PO DAILY Qty: 90 RF: 3 pantoprazole 40 mg tablet,delayed release (DR/EC) 40 mg PO BID Qty: 180 RF: 3 mupirocin 2 % ointment 1 applic topical BID Qty: 15 RF: 2 clonazepam 1 mg tablet 1 mg PO BID PRN (Reason: anxiety) Qty: 60 RF: 5 betamethasone dipropionate 0.05 % ointment 1 applic topical BID Qty: 15 RF: 0 diclofenac sodium [Voltaren Arthritis Pain] 1 % gel 2 g topical QID PRN (Reason: back pain) Qty: 150 RF: 1 triamcinolone acetonide 0.1 % cream 1 applic TP BID Qty: 30 RF: 1 epinephrine [EpiPen 2-Farrukh] 0.3 mg/0.3 mL auto-injector 0.3 mg IM ONCE Qty: 2 RF: 0 Discharge Instructions Additional Instructions: Your xray did not show any concerning findings you likely have a strain of the hand or could be developing arthritis follow up with your primary care provider within 1-2 weeks if symptom continue if you feel more ill, have severe worsening pain or fevers return to the emergency department Medical Decision Making 35 yo male with debilitating anxiety comes in with 1 week of pain on the lateral thigh and also pain in the right hand. He has no known trauma or falls. He is very limited with history and will only answer in 1 word responses due to his anxiety. He has no pain or tenderness in with right shoulder, humerus, elbow, forearm. HE has no swelling of the arm compared to the left and no pain in the wrist. Normal pulses and sensation. Localizes the pain over the 1-4 mcp joints without swelling warmth or erythema and has full range of motion of the hand. Suspect tendonitis vs arthritis vs strain but will xray to evaluate for possible fracture. He has pain over the mid right lateral thigh as well. He is walking without a limp and has full range of motion of the hip and knee. He has no swelling or calf tenderness. I suspect musculoskeletalstrain and doubt femur fracture given he is bearing weight and do not feel xray indicated. No findings on exam to suggest infectious etiology nor dvt pt remains stable and no changes in exam, no new pain. Xray unremarkable, suspect strain less likely arthritis. HE is stable for d/c, discussed with patient and he is going to follow up with his pcp and return precautions given Differential Diagnosis Differential Diagnosis: strain, fracture, arthritis, tendonitis Imaging Data Radiologic Study: Attestation: I personally reviewed and interpreted this imaging study as follows: Imaging: X-Ray Radiologist's impression: no acute findings HPI General Mode of arrival: ambulatory . Date/Time Provider Initiated Documentation: 02/11/21 09:30 . Limitations to Documentation: other (very anxious) . History of Present Illness 35 year old M presents to the emergency department with the chief complaint of right hand pain, described as moderate, Patient started experiencing this day(s) (1) and it has been constant. No relieving factors improve symptom(s), No exacerbating factors reported . Patient notes other (right leg pain). Patient did receive the following treatments prior to arrival, none Related Data Home Medications Medication Instructions Recorded Confirmed epinephrine 0.3 mg/0.3 mL 0.3 mg IJ DIRECTED PRN #2 kit 03/10/19 02/11/21 injection, auto-injector simethicone 80 mg chewable tablet 40 mg PO Q6H PRN PRN tab 03/10/19 02/11/21 tamsulosin 0.4 mg capsule 0.4 mg PO DAILY 09/15/19 02/11/21 mupirocin 2 % topical ointment 1 applic TOPICAL BID PRN 10 Days 01/16/20 02/11/21 #22 gm risperidone 0.25 mg tablet 0.25 mg PO BID #60 tab 03/21/20 02/11/21 hydrocortisone 2.5 % topical 1 applic TP BID PRN #28.35 gm 04/04/20 02/11/21 ointment acetaminophen 500 mg tablet 1,000 mg PO TID PRN #270 tab 05/03/20 02/11/21 sertraline 100 mg tablet 100 mg PO DAILY #90 tab 05/03/20 02/11/21 fluticasone propionate 50 1 spray MILLICENT DAILY PRN #9.9 ml 07/05/20 02/11/21 mcg/actuation nasal spray,suspension amitriptyline 10 mg tablet 10 mg PO QHS #30 tab 07/26/20 02/11/21 epinephrine [EpiPen 2-Farrukh] 0.3 mg IM ONCE #2 ea 07/29/20 02/11/21 famotidine 20 mg tablet 20 mg PO DAILY #90 tab 08/16/20 02/11/21 cetirizine 10 mg tablet 10 mg PO DAILY #90 tab-cap 08/23/20 02/11/21 pantoprazole 40 mg tablet,delayed 40 mg PO BID #180 tab 08/29/20 02/11/21 release betamethasone dipropionate 0.05 % 1 applic TOPICAL BID #15 g 10/14/20 02/11/21 topical ointment clonazepam 1 mg tablet 1 mg PO BID PRN #60 tab 10/14/20 02/11/21 mupirocin 2 % topical ointment 1 applic TOPICAL BID #15 g 10/14/20 02/11/21 apixaban 5 mg tablet 5 mg PO BID #180 tab 11/29/20 02/11/21 diclofenac sodium 1 % topical gel 2 g TOPICAL QID PRN #150 g 01/17/21 02/11/21 triamcinolone acetonide 0.1 % 1 applic TP BID #30 gm 02/07/21 02/11/21 topical cream Previous Rx's Medication Instructions Recorded epinephrine 0.3 mg/0.3 mL 0.3 mg IJ DIRECTED PRN #2 kit 03/10/19 injection, auto-injector mupirocin 2 % topical ointment 1 applic TOPICAL BID PRN 10 Days 01/16/20 #22 gm risperidone 0.25 mg tablet 0.25 mg PO BID #60 tab 03/21/20 hydrocortisone 2.5 % topical 1 applic TP BID PRN #28.35 gm 04/04/20 ointment acetaminophen 500 mg tablet 1,000 mg PO TID PRN #270 tab 05/03/20 sertraline 100 mg tablet 100 mg PO DAILY #90 tab 05/03/20 fluticasone propionate 50 1 spray MILLICENT DAILY PRN #9.9 ml 07/05/20 mcg/actuation nasal spray,suspension amitriptyline 10 mg tablet 10 mg PO QHS #30 tab 07/26/20 epinephrine [EpiPen 2-Farrukh] 0.3 mg IM ONCE #2 ea 07/29/20 famotidine 20 mg tablet 20 mg PO DAILY #90 tab 08/16/20 cetirizine 10 mg tablet 10 mg PO DAILY #90 tab-cap 08/23/20 pantoprazole 40 mg tablet,delayed 40 mg PO BID #180 tab 08/29/20 release betamethasone dipropionate 0.05 % 1 applic TOPICAL BID #15 g 10/14/20 topical ointment clonazepam 1 mg tablet 1 mg PO BID PRN #60 tab 10/14/20 mupirocin 2 % topical ointment 1 applic TOPICAL BID #15 g 10/14/20 apixaban 5 mg tablet 5 mg PO BID #180 tab 11/29/20 diclofenac sodium 1 % topical gel 2 g TOPICAL QID PRN #150 g 01/17/21 triamcinolone acetonide 0.1 % 1 applic TP BID #30 gm 02/07/21 topical cream Allergies Allergy/AdvReac Type Severity Reaction Status Date / Time bacitracin Allergy Verified 02/11/21 09:37 dog dander Allergy Verified 02/11/21 09:37 beer Allergy Severe Anaphylaxsi Uncoded 02/11/21 09:37 s unknown anphalyxis Allergy Severe Anaphylaxsi Uncoded 02/11/21 09:37 s General Stated Complaint: Orthopedic CONSTANCE: 3 Review of Systems All systems reviewed & are unremarkable except as noted in HPI and below Constitutional Constitutional: Denies chills, Denies fever(s) and Denies weakness Cardiovascular Cardiovascular: Denies chest pain and Denies dyspnea Respiratory Respiratory: Denies cough and Denies dyspnea Gastrointestinal Gastrointestinal: Denies abdominal pain, Denies nausea and Denies vomiting Musculoskeletal Musculoskeletal: Denies joint swelling Neurologic Neurologic: Denies weakness [facility] Medical History Anxiety extreme and crippling Bipolar disorder DVT of axillary vein, acute bilateral (~02/2019) [facility] Esophageal foreign body (~05/2018) Esophagitis determined by endoscopy (~05/2018) Essential hypertension GERD with esophagitis Leg numbness PAH (pulmonary artery hypertension) 02/28/19 [facility] ECHO (MILD) Priapism, drug-induced Pulmonary embolism, bilateral (~02/2019) [facility] [facility] PE Dr. Flores [facility] 08/2019; RECURRENT Thyroid mass (~02/2019) [facility] Tricuspid regurgitation 02/28/19 [facility] ECHO; MILD TO MOD Surgical History H/O hernia repair Unspecified site, repaired x3 History of splenectomy Priapism (~08/2019) 09/11/19 [facility]; S/P PENILE SHUNT ([place]) S/P IVC filter (~08/2019) [facility] Social History Smoking/Tobacco Use Status: Never Smoking risk assessment performed?: Yes Alcohol Intake: never Drug use: Never Substance use type: does not use Current gender identity: male Do you feel safe at home: Yes Do you feel safe in your relationship?: Yes Exam Const General: no acute distress Orientation: alert [facility] Head: normal to inspection Ears: external ears normal General nose exam: external nose normal Mouth: moist mucous membranes Eyes General: appearance normal, both eyes and all related structures Neck Neck: normal visual inspection Resp Effort & Inspection: normal respiratory effort and able to speak in complete sentences Cardio Rate: regular rate Skin General skin exam: no rashes or lesions noted Neuro General: patient alert and patient oriented x3 Extrem General: normal to inspection Psych Mental Status: mental status grossly normal Course Vital Signs Vital signs: Vital Signs Temperature 36.4 C L 02/11/21 09:31 Pulse 89 02/11/21 09:31 Respiratory Rate 18 02/11/21 09:31 Blood Pressure 122/60 02/11/21 09:31 Pulse Oximetry 96 02/11/21 09:31 Temperature 36.4 C L 02/11/21 09:31 Temperature Source Temporal Artery Scan 02/11/21 09:31 Pulse 89 02/11/21 09:31 Respiratory Rate 18 02/11/21 09:31 Respiratory Effort Non-Labored 02/11/21 09:36 Blood Pressure 122/60 02/11/21 09:31 Blood Pressure Position Sitting 02/11/21 09:31 Pulse Oximetry 96 02/11/21 09:31 Oxygen Delivery Method Room Air 02/11/21 09:31 Oxygen Flow Rate 0 02/11/21 09:31
[2021-02-11] MEDS: Acetaminophen 500 MG TAB 1000 MG PO (09:50)
== END 2021-02-11 10:40 | disposition home or self-care (01) ==
PROVIDERS: Emergency Provider Emergency Medicine; PCP Family Medicine
DX: M79.641 Pain in right hand (principal); M79.651 Pain in right thigh; F41.9 Anxiety disorder, unspecified
CPT/HCPCS: 99283; 73130

== ENCOUNTER 2021-04-25 17:21 | Emergency (ER) | payer MEDICARE, MEDICAID, SELFPAY ==
[2021-04-25] VITALS (13 sets, daily range): BP systolic 112–143; BP diastolic 64–85; PULSE 63–91; RESP 15–30; TEMP 36.8; O2SAT 92–97
--- NOTE | 2021-04-25 17:15 | RT.EKG_ITS ---
APPROVED REPORT Exam: Resting ECG Reason for Exam: chest pain Patient Location: E HR:77 bpm ECG Measurements Heart Rate 77 AXIS IN 174 P 45 QRSd 95 QRS 22 QT 353 T 33 QTc 400 Conclusion Sinus rhythm...normal P axis, V-rate 60- 99 motion artifact but [address]oticeable st t wave ischemic findings
--- NOTE | 2021-04-25 17:45 | DI.CT_ITS ---
Exam(s) CT CHEST PE ABD PELVIS W EXAM: CT CHEST PE ABD PELVIS W CLINICAL HISTORY: Chest pain, SOB, Hx PE, IVC Filter, R groin pain. TECHNIQUE: Imaging Protocol: Axial CT angiography was performed with multi-slice acquisition and m ulti-planar and/or 3D reconstructions. CONTRAST MATERIAL: Intravenous: Omnipaque 350 Contrast volume:100 ml Oral: None COMPARISON: CT CT ABDOMEN PELVIS W from 11/04/2020 FINDINGS: CHEST: PULMONARY ARTERIES: Suboptimal bolus timing. No obvious intraluminal filling defects to suggest pres ence of acute pulmonary emboli, realized limitations of this study in the distal pulmonary arterial t ree. LUNGS: There is respiratory motion artifact in the lung peres bilaterally making evaluation for subt le finding somewhat difficult.Mild increased markings in posterior basal segment of the right lower l obe. Remainder of the lungs appears relatively unremarkable. There are no pleural effusions. MEDIASTINUM: There is no hilar nor mediastinal adenopathy. Visualized thyroid unremarkable. CARDIAC: Heart size is normal. There is no pericardial effusion. There is no significant shift of t he interventricular septum.Caliber of the thoracic aorta is within normal limits. OSSEOUS: No significant osseous lesions.. ABDOMEN: There is no ascites. LIVER: There are no focal hepatic lesions nor dilatation of intrahepatic ducts. GALLBLADDER/BILIARY: Layering small gallstones. No gallbladder wall edema. CBD is not dilated. PANCREAS: No evidence of pancreatic mass nor dilatation of the pancreatic duct. SPLEEN: Is not present and there are no surgical clips. However, there is small splenule noted which measures 1.5 by 1.2 cm. In addition, the tail of the pancreas is deficient. Remainder of the pancr eas appears unremarkable. ADRENALS: There are no significant adrenal masses. KIDNEYS:No cysts evident. No calculi nor hydronephrosis. No solid renal masses. ABDOMINAL AORTA: Abdominal aorta is not enlarged. No significant atherosclerotic disease. There is no para-aortic adenopathy. There is an IVC filter in place. Its superior aspect is below the renal vein level. There is also no [place] IVC hematoma. LYMPH NODES: There is no retroperitoneal or para-aortic adenopathy. ABDOMINAL WALL/GI: No evidence of significant anterior abdominal wall hernia. No bowel obstruction. PELVIS: LYMPH NODES: There is no intrapelvic nor inguinal adenopathy. GI: No evidence of appendicitis.No evidence of sigmoid diverticulitis. URINARY BLADDER: Uniform thickening of the bladder wall noted. REPRODUCTIVE: Age-appropriate. Prostate not enlarged OSSEOUS: Inferior pubic rami are not included in the field of view. There are no pelvic fractures no r lesions identified in the pelvic bones. IMPRESSION: 1. No evidence of acute pulmonary emboli nor pulmonary infarction. Mild increased markings in the po sterior basal segment of the right lower lobe noted. 2. There are no pleural effusions.Thoracic aorta unremarkable. 3. IVC filter noted in satisfactory position. 4. Spleen is absent. Small splenule is again noted. The tail the pancreas is also deficient. There are no surgical clips. 5. Cholelithiasis. However, no evidence of acute cholecystitis. No dilatation of the biliary tree. No obvious acute abnormality evident in the abdomen and pelvis. RADIATION DOSE DELIVERED: 2,424.05mGy.cm Total DLP DATA REPOSITORY: All CT scans at this facility are submitted to the National Radiology Data Registry (NRDR) Dose Index Registry (DIR) with the [employer] ([employer]). RADIATION OPTIMIZATION: All CT scans at this facility use at least one of these dose optimization te chniques: automated exposure control; mA and/or kV adjustment per patient size (includes targeted exa ms where dose is matched to clinical indication); or iterative reconstruction.
--- NOTE | 2021-04-25 18:00 | W.ED.GENAD ---
Discharge Plan Disposition Patient Disposition: HOME Condition: Stable Discharge Details Clinical Impression: Chest pain Primary Care Provider: José Miguel Flores ED Provider: Dewayne Felix [place] Meds and New Rx's Prescriptions: Continued epinephrine 0.3 mg/0.3 mL auto-injector 0.3 mg IJ DIRECTED PRN (Reason: Anaphylaxis) Qty: 2 RF: 0 amitriptyline 10 mg tablet 10 mg PO QHS Qty: 30 RF: 0 apixaban 5 mg tablet 5 mg PO BID Qty: 180 RF: 3 risperidone 0.25 mg tablet 0.25 mg PO BID Qty: 60 RF: 11 sertraline 100 mg tablet 100 mg PO DAILY Qty: 90 RF: 3 simethicone 80 mg tablet,chewable 40 mg PO Q6H PRN PRNRF: 0 tamsulosin [Flomax] 0.4 mg capsule 0.4 mg PO DAILY RF: 0 mupirocin 2 % ointment 1 applic Topical BID PRN (Reason: impetigo) 10 Days Qty: 22 RF: 5 hydrocortisone 2.5 % ointment 1 applic TP BID PRN (Reason: neck rash) Qty: 28.35 RF: 1 fluticasone propionate [Allergy Relief (fluticasone)] 50 mcg/actuation spray,suspension 1 spray MILLICENT DAILY PRN (Reason: allergy symptoms) Qty: 9.9 RF: 11 famotidine [Pepcid] 20 mg tablet 20 mg PO DAILY Qty: 90 RF: 3 cetirizine [Zyrtec] 10 mg tablet 10 mg PO DAILY Qty: 90 RF: 3 pantoprazole 40 mg tablet,delayed release (DR/EC) 40 mg PO BID Qty: 180 RF: 3 mupirocin 2 % ointment 1 applic topical BID Qty: 15 RF: 2 clonazepam 1 mg tablet 1 mg PO BID PRN (Reason: anxiety) Qty: 60 RF: 5 betamethasone dipropionate 0.05 % ointment 1 applic topical BID Qty: 15 RF: 0 diclofenac sodium [Voltaren Arthritis Pain] 1 % gel 2 g topical QID PRN (Reason: back pain) Qty: 150 RF: 1 triamcinolone acetonide 0.1 % cream 1 applic TP BID Qty: 30 RF: 1 acetaminophen [Tylenol Extra Strength] 500 mg tablet 1,000 mg PO TID PRN (Reason: pain/fever) Qty: 270 RF: 4 epinephrine [EpiPen 2-Farrukh] 0.3 mg/0.3 mL auto-injector 0.3 mg IM ONCE Qty: 2 RF: 0 Discharge Instructions Instructions: Chest Pain (ED) Additional Instructions: your blood work and cat scan did not show any concerning findings at this time follow up with your primary care provider this week if you feel more ill, have worsening pain or fevers return to the emergency department Discharge Data Discharge Date/Time-TO BE ENTERED AT DEPARTURE: 04/25/21 20:53 Medical Decision Making <Amanda Diego - Last Filed: 04/28/21 12:04> 35 year old male presents to ED with C/O Midsternal chest pain, SOB, and Right groin pain. He reports CP SOB began 2-3 days ago, and Groin pain x 1 week. He reports urinary hesitancy. Denies Coughing up blood. Has a history of bilateral PE dx in 2019, on Apixaban and has a IVC filter. He also has a history of crippling anxiety,HTN, DVT, GERD, Pulmonary Artery HTN, Tricuspid regurgitation, Bipolar Disorder and is a poor historian due to anxiety. Patient is diaphoretic which is somewhat at his baseline presentation. O2 sat 97 %RA upon initial exam, No wheezing auscultated initially. SHX,Splenectomy. Cardiac workup ordered, CT PE chest, Abd Pelvis w Contrast, Troponin x 2, Lorazepam 1mg IV. Covid swab. At this time CT chest and serial troponin #2 is pending. Care is to be handed off to oncoming provider ER attending Dr. Felix. I did discuss patient case and details with him he verbalizes understanding. At the time of this dictation prior work-up is largely unremarkable. <Dewayne Felix MD - Last Filed: 04/25/21 20:35> labs including delta troponin unremarkable and imaging shows no acute findings. He is in no distress, has no calf tenderness or leg swelling so do not feel he requires dvt study at this time. He will f/u with his pcp and return precautions given. He says to me he has no difficulty urinating and he doesn't want to stay to provide a urine sample which I feel is reasonable HPI <Amanda Diego - Last Filed: 04/28/21 12:04> General Mode of arrival: ambulatory. Date/Time Provider Initiated Documentation: 04/25/21 17:29. Limitations to Documentation: no limitations. Information obtained by: patient, RN notes reviewed and old records reviewed. HPI Narrative: 35 year old male presents to ED with C/O Midsternal chest pain, SOB, and Right groin pain. He reports CP SOB began 2-3 days ago, and Groin pain x 1 week. He reports urinary hesitancy. Denies Coughing up blood. Has a history of bilateral PE dx in 2019, on Apixaban and has a IVC filter. He also has a history of crippling anxiety,HTN, DVT, GERD, Pulmonary Artery HTN, Tricuspid regurgitation, Bipolar Disorder and is a poor historian due to anxiety. Patient is diaphoretic which is somewhat at his baseline presentation. O2 sat 97 %RA upon initial exam, No wheezing auscultated initially. SHX,Splenectomy. Related Data Home Medications Medication Instructions Recorded Confirmed epinephrine 0.3 mg/0.3 mL 0.3 mg IJ DIRECTED PRN #2 kit 03/10/19 02/28/21 injection, auto-injector simethicone 80 mg chewable tablet 40 mg PO Q6H PRN PRN tab 03/10/19 02/28/21 tamsulosin 0.4 mg capsule 0.4 mg PO DAILY 09/15/19 02/28/21 mupirocin 2 % topical ointment 1 applic TOPICAL BID PRN 10 Days 01/16/20 02/28/21 #22 gm hydrocortisone 2.5 % topical 1 applic TP BID PRN #28.35 gm 04/04/20 02/28/21 ointment fluticasone propionate 50 1 spray MILLICENT DAILY PRN #9.9 ml 07/05/20 02/28/21 mcg/actuation nasal spray,suspension amitriptyline 10 mg tablet 10 mg PO QHS #30 tab 07/26/20 02/28/21 epinephrine [EpiPen 2-Farrukh] 0.3 mg IM ONCE #2 ea 07/29/20 02/28/21 famotidine 20 mg tablet 20 mg PO DAILY #90 tab 08/16/20 02/28/21 cetirizine 10 mg tablet 10 mg PO DAILY #90 tab-cap 08/23/20 02/28/21 pantoprazole 40 mg tablet,delayed 40 mg PO BID #180 tab 08/29/20 02/28/21 release betamethasone dipropionate 0.05 % 1 applic TOPICAL BID #15 g 10/14/20 02/28/21 topical ointment clonazepam 1 mg tablet 1 mg PO BID PRN #60 tab 10/14/20 02/28/21 mupirocin 2 % topical ointment 1 applic TOPICAL BID #15 g 10/14/20 02/28/21 apixaban 5 mg tablet 5 mg PO BID #180 tab 11/29/20 02/28/21 diclofenac sodium 1 % topical gel 2 g TOPICAL QID PRN #150 g 01/17/21 02/28/21 triamcinolone acetonide 0.1 % 1 applic TP BID #30 gm 02/07/21 02/28/21 topical cream risperidone 0.25 mg tablet 0.25 mg PO BID #60 tab 02/28/21 02/28/21 sertraline 100 mg tablet 100 mg PO DAILY #90 tab 02/28/21 02/28/21 acetaminophen 500 mg tablet 1,000 mg PO TID PRN #270 tab 04/08/21 Previous Rx's Medication Instructions Recorded epinephrine 0.3 mg/0.3 mL 0.3 mg IJ DIRECTED PRN #2 kit 03/10/19 injection, auto-injector mupirocin 2 % topical ointment 1 applic TOPICAL BID PRN 10 Days 01/16/20 #22 gm hydrocortisone 2.5 % topical 1 applic TP BID PRN #28.35 gm 04/04/20 ointment fluticasone propionate 50 1 spray MILLICENT DAILY PRN #9.9 ml 07/05/20 mcg/actuation nasal spray,suspension amitriptyline 10 mg tablet 10 mg PO QHS #30 tab 07/26/20 epinephrine [EpiPen 2-Farrukh] 0.3 mg IM ONCE #2 ea 07/29/20 famotidine 20 mg tablet 20 mg PO DAILY #90 tab 08/16/20 cetirizine 10 mg tablet 10 mg PO DAILY #90 tab-cap 08/23/20 pantoprazole 40 mg tablet,delayed 40 mg PO BID #180 tab 08/29/20 release betamethasone dipropionate 0.05 % 1 applic TOPICAL BID #15 g 10/14/20 topical ointment clonazepam 1 mg tablet 1 mg PO BID PRN #60 tab 10/14/20 mupirocin 2 % topical ointment 1 applic TOPICAL BID #15 g 10/14/20 apixaban 5 mg tablet 5 mg PO BID #180 tab 11/29/20 diclofenac sodium 1 % topical gel 2 g TOPICAL QID PRN #150 g 01/17/21 triamcinolone acetonide 0.1 % 1 applic TP BID #30 gm 02/07/21 topical cream risperidone 0.25 mg tablet 0.25 mg PO BID #60 tab 02/28/21 sertraline 100 mg tablet 100 mg PO DAILY #90 tab 02/28/21 acetaminophen 500 mg tablet 1,000 mg PO TID PRN #270 tab 04/08/21 Allergies Allergy/AdvReac Type Severity Reaction Status Date / Time bacitracin Allergy Verified 02/28/21 16:10 dog dander Allergy Verified 02/28/21 16:10 beer Allergy Severe Anaphylaxsi Uncoded 02/28/21 16:10 s unknown anphalyxis Allergy Severe Anaphylaxsi Uncoded 02/28/21 16:10 s General Stated Complaint: Chest Pain CONSTANCE: 2 Review of Systems <Amanda Diego - Last Filed: 04/28/21 12:04> Narrative: Poor historian, history limited Unobtainable due to mental condition Constitutional Constitutional: Reports other (Diaphoresis) Cardiovascular Cardiovascular: Reports chest pain, Reports claudication, Denies radiating jaw, neck or arm pain and Reports dyspnea Respiratory Respiratory: Reports cough, Reports dyspnea and Denies wheezing Gastrointestinal Gastrointestinal: Denies diarrhea, Denies nausea and Denies vomiting Genitourinary Genitourinary: Reports as per HPI, Reports difficulty urinating and Reports genital pain (Right groin pain) Musculoskeletal Comments: Leg pain Psychiatric Psychiatric: Reports as per HPI and Reports anxiety Allergic/Immunologic Allergic/Immunologic: Denies wheezing PFSH <Amanda Diego - Last Filed: 04/28/21 12:04> Medical History Anxiety extreme and crippling Bipolar disorder DVT of axillary vein, acute bilateral (~02/2019) [facility] Esophageal foreign body (~05/2018) Esophagitis determined by endoscopy (~05/2018) Essential hypertension GERD with esophagitis Leg numbness PAH (pulmonary artery hypertension) 02/28/19 [facility] ECHO (MILD) Priapism, drug-induced Pulmonary embolism, bilateral (~02/2019) [facility] PE Dr. Flores [facility] 08/2019; RECURRENT Thyroid mass (~02/2019) [facility] Tricuspid regurgitation 02/28/19 [facility] ECHO; MILD TO MOD Surgical History H/O hernia repair Unspecified site, repaired x3 History of splenectomy Priapism (~08/2019) 09/11/19 [facility]; S/P PENILE SHUNT (AL-GHORAB) S/P IVC filter (~08/2019) [facility] Social History Smoking/Tobacco Use Status: Never Smoking risk assessment performed?: Yes Alcohol Intake: never Drug use: Never Substance use type: does not use Current gender identity: male Do you feel safe at home: Yes Do you feel safe in your relationship?: Yes Exam <Amanda Diego - Last Filed: 04/28/21 12:04> Narrative Exam Narrative: Constitutional: Alert and oriented x3. Appears stated age. Normal body habitus. Anxious, diaphoretic, avoids eye contact, guarded. Nonverbal Head: Normocephalic, no trauma. Eyes: Pupils PERRL, Red reflex noted, EOM's intact. Eyelids symmetrical without lesions, discharge, or swelling. ENT: Bilateral TM's WNL, External ear normal to inspection, no mastoid TTP, swelling, or erythema, unable to assess due to patient's mental condition. Chest: RRR, Normal S1, S2, distal pulses intact. Resp: Lungs clear to auscultation bilaterally, no wheezes, rales, or rhonchi. Abdomen: Soft, non-distended, Normoactive bowel sounds all 4 quads. Musculoskeletal: Unable to assess gait, 5/5 strength to all four extremities. No Homans' sign bilaterally, no swelling erythema noted to his bilateral lower extremities. No edema. Skin: No suspicious rashes or lesions. Capillary refill less than 2 sec. Neurologic: Cranial nerves II-XII intact. Alert and oriented x 3. Motor: No deficits noted. Sensory: Intact bilaterally all 4 extremities. Reflexes: intact bilaterally.. Psychiatric: History of crippling anxiety she constitutional. Hematologic/Lymphatic: No ecchymosis, no lymphadenopathy. Course <Amanda Diego - Last Filed: 04/28/21 12:04> Vital Signs Vital signs: Vital Signs Temperature 36.8 C 04/25/21 17:33 Pulse 91 H 04/25/21 17:33 Blood Pressure 143/85 H 04/25/21 17:33 Pulse Oximetry 97 04/25/21 17:33 Temperature 36.8 C 04/25/21 17:33 Temperature Source Temporal Artery Scan 04/25/21 17:33 Pulse 91 H 04/25/21 17:33 Blood Pressure 143/85 H 04/25/21 17:33 Blood Pressure Position Sitting 04/25/21 17:33 Pulse Oximetry 97 04/25/21 17:33 Oxygen Delivery Method Room Air 04/25/21 17:33 Oxygen Flow Rate 0 04/25/21 17:33 Sign Out <Amanda Diego - Last Filed: 04/28/21 12:04> Sign Out Data: Sign Out Comment: Pending CT Chest, Abd Pelvis, Rpt troponin. Hx PE, IVC filter, Anxiety. On 2L N/C, given 1mg Lorazepam IVP. Last updated by Amanda Diego at 04/25/21 19:33
[2021-04-25] MEDS: LORazepam 2 MG/ML VIAL 1 MG IVP (18:15)
[2021-04-25 18:21] LABS: Source Nasal/Nares
[2021-04-25] MEDS: Normal Saline Flush 10 ML SYR IVP ×2 (18:23→19:59)
[2021-04-25 18:33] LABS: Abs Immature Grans 0.03 10^3/uL (0.0-0.06); HCT 44.1 % (40.0-50.0); HGB 14.9 g/dL (13.5-17.5); MCHC 33.8 % (32.0-36.0); MCV 88.9 fL (80-95); MPV 9.8 fL (8.0-11.0); Nucleated RBC 0 %; Platelet Count 533 10^3/uL (130-400); RBC 4.96 10^6/uL (4.36-5.78); RDW 14.4 % (11.8-14.1); RDW-SD 46.9 fL; WBC 12.42 10^3/uL (4.4-10.8)
[2021-04-25 18:40] LABS: INR 1.1 (0.9-1.1); PTT Activated 25.2 sec (21.0-27.5); Prothrombin Time 10.7 sec (9.3-11.0)
[2021-04-25 18:43] LABS: ALT 26 U/L (16-63); AST 25 U/L (15-37); Albumin 4.1 g/dL (3.4-5.0); Alkaline Phosphatase 69 U/L (46-116); Anion Gap 9.2 mmol/L (3-11); BUN 12 mg/dL (7-18); Bilirubin, Total 1.9 mg/dL (0.2-1.0); CO2 26.8 mmol/L (21.0-32.0); CREATININE 1.2 mg/dL (0.70-1.30); Calcium 9.3 mg/dL (8.5-10.1); Chloride 104 mmol/L (98-107); Glucose 94 mg/dL (74-106); Potassium 3.2 mmol/L (3.5-5.1); Sodium 140 mmol/L (136-145); Total Protein 8.3 g/dL (6.4-8.2)
[2021-04-25 18:44] LABS: Absolute Neutrophil Count 6.21 10^3/uL (1.2-6.7); Troponin I < 0.05 ng/mL (<0.06)
[2021-04-25 18:45] LABS: Absolute Lymphocyte Count 5.71 10^3/uL (1.2-3.4); Atypical Lymphocytes % 5; Diff Comment Manual Differential; RBC Morphology Normal
[2021-04-25 19:10] LABS: COVID-19 PCR Negative (Negative)
[2021-04-25] MEDS: Omnipaque 350 MG/ML 100 ML BTL IJ (19:57)
[2021-04-25] MEDS: Normal Saline - Diluent 50 ML VIAL IV (19:58)
[2021-04-25 20:17] LABS: Troponin I < 0.05 ng/mL (<0.06)
--- NOTE | 2021-04-25 20:25 | DI.VRAD_ITS ---
PROCEDURE INFORMATION: Exam: CTA Chest With Contrast Exam date and time: 04/25/2021 6:00 PM Age: 35 years old Clinical indication: Other: Chest pain, SOB, HX pe, ivc filter, R groin pain TECHNIQUE: Imaging protocol: Computed tomographic angiography of the chest with contrast. 3D rendering (Not supervised by radiologist): MIP and/or 3D reconstructed images were created by the technologist. COMPARISON: CT THORAX ABD/PEL CTA 07/16/2020 8:26 AM FINDINGS: Pulmonary arteries: Pulmonary artery is well opacified. No pulmonary arterial embolism is evident. Aorta: Thoracic aorta is normal in course and caliber. Lungs: No acute lung infiltrates or consolidation. No edema. Pleural spaces: No pleural effusion. No pneumothorax. Heart: Normal heart size. No pericardial effusion. Lymph nodes: No hilar or mediastinal adenopathy. Bones/joints: Unremarkable. No acute fracture. Soft tissues: Unremarkable. IMPRESSION: 1. No pulmonary arterial embolism is evident. 2. No acute lung or pleural changes. 3. Thoracic aorta is unremarkable. PROCEDURE INFORMATION: Exam: CT Angiography Abdomen With Contrast Exam date and time: 04/25/2021 6:00 PM Age: 35 years old Clinical indication: Other: Chest pain, SOB, HX pe, ivc filter, R groin pain TECHNIQUE: Imaging protocol: Computed tomographic angiography images of the abdomen with intravenous contrast material. 3D rendering (Not supervised by radiologist): MIP and/or 3D reconstructed images were created by the technologist. COMPARISON: CT THORAX ABD/PEL CTA 07/16/2020 8:26 AM FINDINGS: Aorta: Abdominal aorta is unremarkable in contour. No aneurysm. Celiac trunk and mesenteric arteries: Celiac artery origin widely patent. Superior mesenteric artery origin widely patent. Renal arteries: Right renal artery origin widely patent. Left renal artery origin widely patent. Right iliac arteries: Right common iliac artery is widely patent. Left iliac arteries: Left common iliac arteries widely patent. Inferior vena cava: Inferior vena cava filter is noted in the infrarenal IVC. Liver: Normal. No mass. Gallbladder and bile ducts: . Gallstones are noted layering in the gallbladder neck. No acute biliary tract findings. Pancreas: Previous distal pancreatectomy. No ductal dilation. Spleen: Previous splenectomy. Small left upper quadrant splenule measuring 15 mm. Adrenals: Normal. No mass. Kidneys and ureters: Normal. No hydronephrosis. Stomach and bowel: Minor hiatal hernia without acute edema. No bowel obstruction. No mucosal thickening. Lymph nodes: Unremarkable. No enlarged lymph nodes. Intraperitoneal space: Unremarkable. No free air. No significant fluid collection. Reproductive: Prostate gland is unremarkable as visualized. Bones/joints: Unremarkable. No acute fracture. No dislocation. Soft tissues: Minor fat containing right inguinal hernia. No acute strangulation. Soft tissues of the abdominal wall and inguinal regions bilaterally are unremarkable. No hematoma. No mass. IMPRESSION: 1. No acute findings of the abdomen or pelvis. 2. IVC filter is noted. 3. No evidence of groin hematoma or significant abdominal wall hernia. 4. Gallstones. No acute biliary tract disease. 5. Previous splenectomy and and distal pancreatectomy Dictated and Authenticated by: Jose Luis Jimenez MD. Ordering:KIRA Patel MD
== END 2021-04-25 20:53 | disposition home or self-care (01) ==
PROVIDERS: Registered Nurse Emergency; Emergency Provider Emergency Medicine; PCP Family Medicine
DX: R07.89 Other chest pain (principal); R06.02 Shortness of breath; R10.31 Right lower quadrant pain; Z86.711 Personal history of pulmonary embolism; Z79.01 Long term (current) use of anticoagulants
CPT/HCPCS: 36415; 71275; 74177; 80053; 87635; 93005; 96374; 99285; 81003; 83735; 84484; 85025; 85610; 85730; 93010; 99284; J2060; J3490

== ENCOUNTER 2021-07-17 09:00 | Emergency (ER) | payer MEDICARE, MEDICAID, SELFPAY ==
[2021-07-17] VITALS (8 sets, daily range): BP systolic 105–153; BP diastolic 84–103; PULSE 77–103; RESP 16–46; TEMP 36.4; O2SAT 95–97
--- NOTE | 2021-07-17 09:00 | DI.RAD_ITS ---
Exam(s) XR PORTABLE CHEST AP EXAM: XR PORTABLE CHEST AP CLINICAL HISTORY: cough. TECHNIQUE: 2D digital imaging was performed. COMPARISON: Prior chest x-ray 07/29/2020 FINDINGS: Heart size is upper normal. The mediastinum is not widened. Left lung is clear. There is platelike atelectasis in right lung base. No pleural effusions. No pu lmonary edema. No pneumothorax. IMPRESSION: There is platelike atelectasis in right lung base. No other pulmonary findings nor pleural effusions evident on this single portable view. DATA REPOSITORY: RADIATION DOSE DELIVERED: All CT scans at this facility use at least one of these dose optimization techniques: automated exposure control; mA and/or kV adjustment per patient size (includes targeted e xams where dose is matched to clinical indication); or iterative reconstruction.
--- NOTE | 2021-07-17 09:13 | W.ED.GENAD ---
Discharge Plan Disposition Patient Disposition: HOME Condition: Stable Discharge Details Clinical Impression: Cough, Pharyngitis Primary Care Provider: José Miguel Flores ED Provider: Salo Villa Home Meds and New Rx's Prescriptions: Continued epinephrine 0.3 mg/0.3 mL auto-injector 0.3 mg IJ DIRECTED PRN (Reason: Anaphylaxis) Qty: 2 RF: 0 amitriptyline 10 mg tablet 10 mg PO QHS Qty: 30 RF: 0 apixaban 5 mg tablet 5 mg PO BID Qty: 180 RF: 3 risperidone 0.25 mg tablet 0.25 mg PO BID Qty: 60 RF: 11 sertraline 100 mg tablet 100 mg PO DAILY Qty: 90 RF: 3 simethicone 80 mg tablet,chewable 40 mg PO Q6H PRN PRNRF: 0 tamsulosin [Flomax] 0.4 mg capsule 0.4 mg PO DAILY RF: 0 mupirocin 2 % ointment 1 applic Topical BID PRN (Reason: impetigo) 10 Days Qty: 22 RF: 5 hydrocortisone 2.5 % ointment 1 applic TP BID PRN (Reason: neck rash) Qty: 28.35 RF: 1 fluticasone propionate [Allergy Relief (fluticasone)] 50 mcg/actuation spray,suspension 1 spray MILLICENT DAILY PRN (Reason: allergy symptoms) Qty: 9.9 RF: 11 famotidine [Pepcid] 20 mg tablet 20 mg PO DAILY Qty: 90 RF: 3 cetirizine [Zyrtec] 10 mg tablet 10 mg PO DAILY Qty: 90 RF: 3 pantoprazole 40 mg tablet,delayed release (DR/EC) 40 mg PO BID Qty: 180 RF: 3 mupirocin 2 % ointment 1 applic topical BID Qty: 15 RF: 2 betamethasone dipropionate 0.05 % ointment 1 applic topical BID Qty: 15 RF: 0 diclofenac sodium [Voltaren Arthritis Pain] 1 % gel 2 g topical QID PRN (Reason: back pain) Qty: 150 RF: 1 triamcinolone acetonide 0.1 % cream 1 applic TP BID Qty: 30 RF: 1 acetaminophen [Tylenol Extra Strength] 500 mg tablet 1,000 mg PO TID PRN (Reason: pain/fever) Qty: 270 RF: 4 clonazepam 1 mg tablet 1 mg PO BID PRN (Reason: anxiety) Qty: 60 RF: 5 epinephrine [EpiPen 2-Farrukh] 0.3 mg/0.3 mL auto-injector 0.3 mg IM ONCE Qty: 2 RF: 0 Discharge Instructions Instructions: Pharyngitis (ED), Acute Cough (ED) Additional Instructions: Your work-up in the ER including chest x-ray, strep test, and laboratory values were all unremarkable. No clear evidence of a bacterial infection requiring antibiotics your COVID test is pending and I recommend quarantining until this test has resulted, likely in the next 2-3 days. In the meantime rest, plenty of fluids, [id number] medications as directed for symptomatic control. Please watch for new or worsening symptoms and return to the ER for any concerns. Lastly, I recommend that you contact your primary care provider later today or tomorrow to make them aware of your ER visit, ongoing symptoms, need for outpatient reevaluation. Medical Decision Making 35-year-old gentleman presents with cough, sore throat, and occasional hard heartbeats over the past couple of days. During triage she had mild tachycardia but during my evaluation his heart rate was in the 90s. He is afebrile, O2 sats 97% on room air. We will obtaining a rapid strep, send out COVID, chest x-ray are reasonable. Given his extreme vagueness, tachycardia upon presentation, and history of PE, I believe obtaining a cardiac work-up including a single troponin given his timeline and a D-dimer is reasonable. He does tell me he is taking his apixaban as directed. Low suspicion for acute PE. Denies any chest pain whatsoever, will not give any aspirin. Patient was placed on the monitor and when no one is in the room his respiratory rate is in the 16-18 range and his pulse drops into the 80s however when anyone enters the room he begins to hyperventilate, respirations in the high 30s and his heart rate does near 100. He continues to appear well, nontoxic, O2 sat remains in the mid 90s, does not require any supplemental oxygen. His laboratory values do not reveal any obvious emergent process, no leukocytosis, platelet count 494, this appears to be near his baseline. His D-dimer is unremarkable at 239. Will not pursue CTA of the chest. His electrolytes are unremarkable, creatinine 1.4 with a GFR of 57.34, will give 1 L IV fluid. Total bili is 1.2, this is actually lower than his typical baseline. His troponin is less than 50, TSH 1.18. Rapid strep negative, culture pending. COVID is pending. Discussed laboratory values and work-up with patient. He remains well-appearing, no distress. No clear indication for antibiotic therapy. We discussed treating his symptoms more aggressively with [id number] medications, resting, plenty of fluids to avoid dehydration. He understands his COVID test is pending and should quarantine until it has come back negative. I did talk with Sister Madina regarding his ER visit, presentation, work-up, and disposition. Standard discharge and return precautions were provided This documentation was generated using [employer]bound[employer] system, please disregard any oddities of phrase or misspellings. Medical Records Medical records reviewed: Yes I reviewed the patient's medical records. Imaging Data Radiologic Study: Attestation: I personally reviewed and interpreted this imaging study as follows: Imaging: X-Ray Radiologist's impression: Exam(s) XR PORTABLE CHEST AP EXAM: XR PORTABLE CHEST AP CLINICAL HISTORY: cough. TECHNIQUE: 2D digital imaging was performed. COMPARISON: Prior chest x-ray 07/29/2020 FINDINGS: Heart size is upper normal. The mediastinum is not widened. Left lung is clear. There is platelike atelectasis in right lung base. No pleural effusions. No pulmonary edema. No pneumothorax. IMPRESSION: There is platelike atelectasis in right lung base. No other pulmonary findings nor pleural effusions evident on this single portable view. Lab Data Lab results reviewed: Yes I reviewed the patient's lab results. Labs: 07/17/21 09:30 Pharynx Group A Streptococcus Culture - Pending Laboratory Tests Range/Units 07/17/21 07/17/21 07/17/21 09:50 09:50 09:50 WBC (4.4-10.8) 10^3/uL 9.63 RBC (4.36-5.78) 10^6/uL 5.62 Hgb (13.5-17.5) g/dL 17.1 Hct (40.0-50.0) % 52.1 H MCV (80-95) fL 92.7 MCH (27.0-33.0) pg 30.4 MCHC (32.0-36.0) % 32.8 RDW (11.8-14.1) % 14.5 H Plt Count (130-400) 10^3/uL 494 H MPV (8.0-11.0) fL 9.3 Immature Gran % See Differential Neutrophils % 33.0 Lymphocytes % 42.0 Atypical Lymphs % 5 Monocytes % 20.0 Eosinophils % 0.0 Basophils % 0.0 Nucleated RBC % % 0 Absolute Neutrophils (1.2-6.7) 10^3/uL 3.18 Absolute Lymphocytes (1.2-3.4) 10^3/uL 4.53 H Absolute Monocytes (0.1-0.8) 10^3/uL 1.93 H Absolute Eosinophils (0.0-0.7) 10^3/uL 0.00 Absolute Basophils (0.0-0.2) 10^3/uL 0.00 RBC Morphology Normal D-Dimer (<500) ng/mlFEU 239 Sodium (136-145) mmol/L 136 Potassium (3.5-5.1) mmol/L 3.8 Chloride (98-107) mmol/L 101 Carbon Dioxide (21.0-32.0) mmol/L 25.3 Anion Gap (3-11) mmol/L 9.7 BUN (7-18) mg/dL 16 Creatinine (0.70-1.30) mg/dL 1.4 H Estimated GFR/1.73 m2 (mL/min/1.73m2) 57.34 Glucose (74-106) mg/dL 103 Calcium (8.5-10.1) mg/dL 9.2 Magnesium (1.8-2.4) mg/dL 2.1 Total Bilirubin (0.2-1.0) mg/dL 1.2 H AST (15-37) U/L 38 H ALT (16-63) U/L 41 Alkaline Phosphatase (46-116) U/L 77 Troponin I (<or=60) ng/L < 50 Total Protein (6.4-8.2) g/dL 9.1 H Albumin (3.4-5.0) g/dL 4.3 TSH (0.36-3.74) uIU/mL 1.18 ECG Data Attestation: I personally reviewed and interpreted this ECG (s) as follows: Interpretation: Please see official report by Dr. Kovacs. Sinus rhythm, ventricular rate 86, no STEMI. HPI General Mode of arrival: ambulatory. Date/Time Provider Initiated Documentation: 07/17/21 09:01. Limitations to Documentation: no limitations. Information obtained by: patient. HPI Narrative: This is a 35-year-old gentleman, past medical history that includes anxiety, bipolar disorder, hypertension, PE, takes apixaban daily, not a smoker, has not been vaccinated for COVID, presents to the ER for evaluation of what he describes as a sore throat, dry cough, feeling like his heart is racing occasionally, for the past 2 or 3 days. Patient is extremely soft-spoken, anxious, and a very vague and poor historian. He denies any recent sick exposure, headache, fever, chest pain, shortness of breath, abdominal pain, nausea, vomiting with pain or swelling in his legs. He took a single dose of Robitussin last night. Related Data Home Medications Medication Instructions Recorded Confirmed epinephrine 0.3 mg/0.3 mL 0.3 mg IJ DIRECTED PRN #2 kit 03/10/19 07/17/21 injection, auto-injector simethicone 80 mg chewable tablet 40 mg PO Q6H PRN PRN tab 03/10/19 07/17/21 tamsulosin 0.4 mg capsule 0.4 mg PO DAILY 09/15/19 07/17/21 mupirocin 2 % topical ointment 1 applic TOPICAL BID PRN 10 Days 01/16/20 07/17/21 #22 gm hydrocortisone 2.5 % topical 1 applic TP BID PRN #28.35 gm 04/04/20 02/28/21 ointment fluticasone propionate 50 1 spray MILLICENT DAILY PRN #9.9 ml 07/05/20 02/28/21 mcg/actuation nasal spray,suspension amitriptyline 10 mg tablet 10 mg PO QHS #30 tab 07/26/20 07/17/21 epinephrine [EpiPen 2-Farrukh] 0.3 mg IM ONCE #2 ea 07/29/20 02/28/21 famotidine 20 mg tablet 20 mg PO DAILY #90 tab 08/16/20 02/28/21 cetirizine 10 mg tablet 10 mg PO DAILY #90 tab-cap 08/23/20 07/17/21 pantoprazole 40 mg tablet,delayed 40 mg PO BID #180 tab 08/29/20 07/17/21 release betamethasone dipropionate 0.05 % 1 applic TOPICAL BID #15 g 10/14/20 07/17/21 topical ointment mupirocin 2 % topical ointment 1 applic TOPICAL BID #15 g 10/14/20 07/17/21 apixaban 5 mg tablet 5 mg PO BID #180 tab 11/29/20 07/17/21 diclofenac sodium 1 % topical gel 2 g TOPICAL QID PRN #150 g 01/17/21 07/17/21 triamcinolone acetonide 0.1 % 1 applic TP BID #30 gm 02/07/21 07/17/21 topical cream risperidone 0.25 mg tablet 0.25 mg PO BID #60 tab 02/28/21 07/17/21 sertraline 100 mg tablet 100 mg PO DAILY #90 tab 02/28/21 07/17/21 acetaminophen 500 mg tablet 1,000 mg PO TID PRN #270 tab 04/08/21 07/17/21 clonazepam 1 mg tablet 1 mg PO BID PRN #60 tab 05/12/21 07/17/21 Previous Rx's Medication Instructions Recorded epinephrine 0.3 mg/0.3 mL 0.3 mg IJ DIRECTED PRN #2 kit 03/10/19 injection, auto-injector mupirocin 2 % topical ointment 1 applic TOPICAL BID PRN 10 Days 01/16/20 #22 gm hydrocortisone 2.5 % topical 1 applic TP BID PRN #28.35 gm 04/04/20 ointment fluticasone propionate 50 1 spray MILLICENT DAILY PRN #9.9 ml 07/05/20 mcg/actuation nasal spray,suspension amitriptyline 10 mg tablet 10 mg PO QHS #30 tab 07/26/20 epinephrine [EpiPen 2-Farrukh] 0.3 mg IM ONCE #2 ea 07/29/20 famotidine 20 mg tablet 20 mg PO DAILY #90 tab 08/16/20 cetirizine 10 mg tablet 10 mg PO DAILY #90 tab-cap 08/23/20 pantoprazole 40 mg tablet,delayed 40 mg PO BID #180 tab 08/29/20 release betamethasone dipropionate 0.05 % 1 applic TOPICAL BID #15 g 10/14/20 topical ointment mupirocin 2 % topical ointment 1 applic TOPICAL BID #15 g 10/14/20 apixaban 5 mg tablet 5 mg PO BID #180 tab 11/29/20 diclofenac sodium 1 % topical gel 2 g TOPICAL QID PRN #150 g 01/17/21 triamcinolone acetonide 0.1 % 1 applic TP BID #30 gm 02/07/21 topical cream risperidone 0.25 mg tablet 0.25 mg PO BID #60 tab 02/28/21 sertraline 100 mg tablet 100 mg PO DAILY #90 tab 02/28/21 acetaminophen 500 mg tablet 1,000 mg PO TID PRN #270 tab 04/08/21 clonazepam 1 mg tablet 1 mg PO BID PRN #60 tab 05/12/21 Allergies Allergy/AdvReac Type Severity Reaction Status Date / Time bacitracin Allergy Verified 07/17/21 09:14 dog dander Allergy Verified 07/17/21 09:14 beer Allergy Severe Anaphylaxsi Uncoded 07/17/21 09:14 s unknown anphalyxis Allergy Severe Anaphylaxsi Uncoded 07/17/21 09:14 s General Stated Complaint: Sorethroat CONSTANCE: 3 Review of Systems Constitutional Constitutional: Denies fever(s) and Denies headache(s) ENT Ears, Nose, Mouth, and Throat: Denies headache(s) and Denies neck pain Cardiovascular Cardiovascular: Denies chest pain, Reports palpitations and Denies dyspnea Respiratory Respiratory: Reports cough and Denies dyspnea Gastrointestinal Gastrointestinal: Denies abdominal pain, Denies nausea and Denies vomiting Musculoskeletal Musculoskeletal: Denies back pain and Denies neck pain Integumentary/Breasts Skin/Breast: Denies rash Neurologic Neurologic: Denies headache(s) Endocrine Endocrine: Reports palpitations Hematologic/Lymphatic Hematologic/Lymphatic: Reports easy bleeding and Reports easy bruising PFSH All Active Problems (Updated 07/17/21 @ 11:07 by JORGE Singleton) Chest pain (Acute) Cough (Acute) Pharyngitis (Acute) Hand pain, right (Acute) Pain, rectal (Acute) Abdominal pain (Acute) Left-sided thoracic back pain (Acute) Cholelithiasis (Acute) Vomiting (Acute) Acute epigastric pain (Acute) Leg numbness (Acute) Rash (Acute) Upper abdominal pain (Acute) GERD with esophagitis (Acute) Foreign body sensation in throat (Acute) Anxiety (Chronic) extreme and crippling Medical History Bipolar disorder DVT of axillary vein, acute bilateral (~02/2019) [facility] [place]ophageal foreign body (~05/2018) Esophagitis determined by endoscopy (~05/2018) Essential hypertension PAH (pulmonary artery hypertension) 02/28/19 [facility] [place] (MILD) Priapism, drug-induced Pulmonary embolism, bilateral (~02/2019) [facility]. Flores [facility] [place]2019; RECURRENT Thyroid mass (~02/2019) [facility] Tricuspid regurgitation 02/28/19 [facility] [place]; MILD TO MOD Surgical History H/O hernia repair Unspecified site, repaired x3 History of splenectomy Priapism (~08/2019) 09/11/19 [facility] S/P PENILE SHUNT (AL-[facility]ORAB) S/P IVC filter (~08/2019) [facility] Social History Smoking/Tobacco Use Status: Never Smoking risk assessment performed?: Yes Alcohol Intake: never Drug use: Never Substance use type: does not use Current gender identity: male Do you feel safe at home: Yes Do you feel safe in your relationship?: Yes Exam Const General: cooperative, healthy appearing, comfortable, no acute distress and anxious Orientation: alert, awake and oriented x3 [facility] Head: normal to inspection, normocephalic and atraumatic Face and sinus: normal facial exam Mouth: moist mucous membranes Throat: uvula midline, posterior oropharynx abnormal erythema (Minimal) and uvula not displaced Eyes General: appearance normal, both eyes and all related structures Conjunctivae: conjunctivae normal Neck Neck: normal visual inspection, full ROM, no lymphadenopathy, trachea midline and supple Resp Effort & Inspection: normal respiratory effort, able to speak in complete sentences and cough Quality of cough: dry Auscultation: clear to auscultation bilaterally Cardio Rate: regular rate (92) Rhythm: regular rhythm GI Palpation: soft and nontender Back/Spine/Pelvis Back: No back tenderness Skin General skin exam: no rashes or lesions noted Neuro General: patient alert, patient awake, moves all extremities and no focal motor deficits Cognition: normal cognition Speech: speech normal (Very soft-spoken) Gait: normal gait Motor: muscle tone normal throughout Sensory Exam: no sensory deficits noted Extrem General: normal to inspection, full ROM, capillary refill normal, no pedal edema and no calf tenderness Psych Appearance: grossly normal Mental Status: mental status grossly normal Course Vital Signs Vital signs: Vital Signs Temperature 36.4 C L 07/17/21 09:05 Pulse 103 H 07/17/21 09:05 Respiratory Rate 18 07/17/21 09:05 Blood Pressure 153/103 H 07/17/21 09:05 Pulse Oximetry 97 07/17/21 09:05 Temperature 36.4 C L 07/17/21 09:05 Temperature Source Temporal Artery Scan 07/17/21 09:05 Pulse 103 H 07/17/21 09:05 Respiratory Rate 18 07/17/21 09:05 Respiratory Effort Non-Labored 07/17/21 09:10 Blood Pressure 153/103 H 07/17/21 09:05 Blood Pressure Position Sitting 07/17/21 09:05 Pulse Oximetry 97 07/17/21 09:05 Oxygen Delivery Method Room Air 07/17/21 09:05 Oxygen Flow Rate 0 07/17/21 09:05
--- NOTE | 2021-07-17 09:15 | RT.EKG_ITS ---
APPROVED REPORT Exam: Resting ECG Reason for Exam: tachy Patient Location: E HR:86 bpm ECG Measurements Heart Rate 86 AXIS AR 163 P 73 QRSd 88 QRS 63 QT 346 T 59 QTc 414 Conclusion Sinus rhythm...normal P axis, V-rate 60- 99
[2021-07-17 09:57] LABS: Abs Immature Grans 0.02 10^3/uL (0.0-0.06); HCT 52.1 % (40.0-50.0); HGB 17.1 g/dL (13.5-17.5); MCH 30.4 pg (27.0-33.0); MCHC 32.8 % (32.0-36.0); MCV 92.7 fL (80-95); MPV 9.3 fL (8.0-11.0); Nucleated RBC 0 %; Platelet Count 494 10^3/uL (130-400); RBC 5.62 10^6/uL (4.36-5.78); RDW 14.5 % (11.8-14.1); RDW-SD 49.7 fL; WBC 9.63 10^3/uL (4.4-10.8)
[2021-07-17 10:14] LABS: Absolute Lymphocyte Count 4.53 10^3/uL (1.2-3.4); Absolute Neutrophil Count 3.18 10^3/uL (1.2-6.7); Atypical Lymphocytes % 5
[2021-07-17 10:15] LABS: Absolute Monocyte Count 1.93 10^3/uL (0.1-0.8); Diff Comment Manual Differential; RBC Morphology Normal
[2021-07-17 10:23] LABS: ALT 41 U/L (16-63); AST 38 U/L (15-37); Albumin 4.3 g/dL (3.4-5.0); Alkaline Phosphatase 77 U/L (46-116); Anion Gap 9.7 mmol/L (3-11); BUN 16 mg/dL (7-18); Bilirubin, Total 1.2 mg/dL (0.2-1.0); CO2 25.3 mmol/L (21.0-32.0); CREATININE 1.4 mg/dL (0.70-1.30); Calcium 9.2 mg/dL (8.5-10.1); Chloride 101 mmol/L (98-107); Estimated GFR 57.34 (mL/min/1.73m2); Glucose 103 mg/dL (74-106); Magnesium 2.1 mg/dL (1.8-2.4); Potassium 3.8 mmol/L (3.5-5.1); Sodium 136 mmol/L (136-145); TSH (W/Ref FT4) 1.18 uIU/mL (0.36-3.74); Total Protein 9.1 g/dL (6.4-8.2); Troponin I < 50 ng/L (<or=60)
[2021-07-17 10:50] LABS: D-Dimer 239 ng/mlFEU (<500)
[2021-07-17] MEDS: Normal Saline 1,000 ML 1000 ML IV (10:50)
[2021-07-18 13:25] LABS: COVID-19 RT-PCR UVMMC Result Positive (Negative)
--- NOTE | 2021-07-18 13:37 | W.ED.FU ---
Patient is COVID-positive. I called patient phone number listed in chart and left voice message regarding results and recommended isolation and follow-up.
[2021-07-18 16:38] LABS: Lab Add On Test DONE
--- NOTE | 2021-07-19 09:04 | NUR.NOTE ---
Patient called @ 0902 stating he was having worse pain lower stomach and cold chills. I told the patient that if he was feeling worse that he could return to the ED. Hilda Gordon Nursing Note:
[2021-07-21 13:54] LABS: Albumin 54.6 % (55.8-66.1); Total Protein 8.6 g/dL (6.3-8.2)
== END 2021-07-17 11:24 | disposition home or self-care (01) ==
PROVIDERS: Emergency Provider Physician Assistant; PCP Family Medicine
DX: U07.1 COVID-19; R05.1 Acute cough; J02.9 Acute pharyngitis, unspecified; R00.0 Tachycardia, unspecified; R10.30 Lower abdominal pain, unspecified
CPT/HCPCS: 80053; 93005; 96360; 99284; U0003; U0005; 71045; 83735; 84165; 84443; 84484; 85025; 85379; 87081; 93010

== ENCOUNTER 2021-07-21 20:28 | Emergency (ER) | payer MEDICARE, MEDICAID, SELFPAY ==
[2021-07-21 20:39] VITALS: BP 136/85; PULSE 90; TEMP 36.5; O2SAT 95
--- NOTE | 2021-07-21 20:45 | DI.CT_ITS ---
Exam(s) CT ABDOMEN PELVIS W EXAM: CT ABDOMEN PELVIS W CLINICAL HISTORY: Bilateral Lower abd pain, Hx of IVC filter TECHNIQUE: Imaging Protocol: Axial computed tomography images with coronal and sagittal reformatted images were created and reviewed CONTRAST MATERIAL: Intravenous: Omnipaque 350 Contrast volume:100 mL Oral: No COMPARISON: CT CT CHEST PE ABD PELVIS W from 04/25/2021 FINDINGS: ABDOMEN: Lung Bases: Atelectasis in the right lung base. Liver: Normal density. No measurable mass. Portal, Superior Mesenteric, and Splenic Veins: Unremarkable. Gallbladder and Biliary Tract: The gallbladder is contracted. Multiple stones are seen within the gal lbladder. There is no biliary ductal dilatation. Pancreas: Normal density, no abnormal calcifications or inflammatory process. Spleen: The spleen is absent. There is a splenule again seen in the left upper quadrant. Adrenals: No masses seen. Kidneys: Normal size, contour and axis. No radiodense stones or obstructive uropathy. No masses seen. Abdominal Aorta: Abdominal portion non-dilated. IVC: There is an IVC filter in place. Bowel: No obstruction or bowel wall thickening. No evidence of appendicitis. Small hiatal hernia. Peritoneal Cavity: No ascites, collection or mesenteric inflammatory response. No free air. Lymph Nodes: Within normal limits. Bones: Within normal limits for the patient's age. Soft Tissues: Unremarkable. PELVIS: Bladder: There is diffuse thickening of the wall of the urinary bladder. The urinary bladder is under distended. Reproductive Organs: Unremarkable as visualized. Lymph Nodes: Within normal limits. Bones: Within normal limits for the patient's age. IMPRESSION: 1. No acute abdominal or pelvic process. 2. Mild right basilar atelectasis. 3. Contracted gallbladder. There appears to be cholelithiasis. No biliary ductal dilatation. 4. Diffuse thickening of the wall of the urinary bladder. The bladder is underdistended which may acc ount for the thickened wall. Cystitis cannot be excluded. Please correlate clinically. RADIATION DOSE DELIVERED: 1,660.36mGy.cm Total DLP DATA REPOSITORY: All CT scans at this facility are submitted to the National Radiology Data Registry (NRDR) Dose Index Registry (DIR) with the [employer] (A[employer]). RADIATION OPTIMIZATION: All CT scans at this facility use at least one of these dose optimization te chniques: automated exposure control; mA and/or kV adjustment per patient size (includes targeted exa ms where dose is matched to clinical indication); or iterative reconstruction.
[2021-07-21 21:10] LABS: HCT 49.5 % (40.0-50.0); HGB 16.3 g/dL (13.5-17.5); Immature Grans % 0.2; MCH 30.4 pg (27.0-33.0); MCHC 32.9 % (32.0-36.0); MCV 92.2 fL (80-95); MPV 9.8 fL (8.0-11.0); Nucleated RBC 0 %; Platelet Count 496 10^3/uL (130-400); RBC 5.37 10^6/uL (4.36-5.78); RDW 14.2 % (11.8-14.1); RDW-SD 48.3 fL; WBC 11.62 10^3/uL (4.4-10.8)
--- NOTE | 2021-07-21 21:16 | W.ED.GENAD ---
Discharge Plan Disposition Patient Disposition: HOME Condition: Stable Discharge Details Clinical Impression: Abdominal pain, COVID-19 Primary Care Provider: José Miguel Flores ED Provider: Amanda Diego Home Meds and New Rx's Prescriptions: Continued epinephrine 0.3 mg/0.3 mL auto-injector 0.3 mg IJ DIRECTED PRN (Reason: Anaphylaxis) Qty: 2 RF: 0 amitriptyline 10 mg tablet 10 mg PO QHS Qty: 30 RF: 0 apixaban 5 mg tablet 5 mg PO BID Qty: 180 RF: 3 risperidone 0.25 mg tablet 0.25 mg PO BID Qty: 60 RF: 11 sertraline 100 mg tablet 100 mg PO DAILY Qty: 90 RF: 3 tamsulosin [Flomax] 0.4 mg capsule 0.4 mg PO DAILY RF: 0 hydrocortisone 2.5 % ointment 1 applic TP BID PRN (Reason: neck rash) Qty: 28.35 RF: 1 fluticasone propionate [Allergy Relief (fluticasone)] 50 mcg/actuation spray,suspension 1 spray MILLICENT DAILY PRN (Reason: allergy symptoms) Qty: 9.9 RF: 11 famotidine [Pepcid] 20 mg tablet 20 mg PO DAILY Qty: 90 RF: 3 cetirizine [Zyrtec] 10 mg tablet 10 mg PO DAILY Qty: 90 RF: 3 pantoprazole 40 mg tablet,delayed release (DR/EC) 40 mg PO BID Qty: 180 RF: 3 betamethasone dipropionate 0.05 % ointment 1 applic topical BID Qty: 15 RF: 0 diclofenac sodium [Voltaren Arthritis Pain] 1 % gel 2 g topical QID PRN (Reason: back pain) Qty: 150 RF: 1 triamcinolone acetonide 0.1 % cream 1 applic TP BID Qty: 30 RF: 1 acetaminophen [Tylenol Extra Strength] 500 mg tablet 1,000 mg PO TID PRN (Reason: pain/fever) Qty: 270 RF: 4 clonazepam 1 mg tablet 1 mg PO BID PRN (Reason: anxiety) Qty: 60 RF: 5 epinephrine [EpiPen 2-Farrukh] 0.3 mg/0.3 mL auto-injector 0.3 mg IM ONCE Qty: 2 RF: 0 Discharge Instructions Instructions: Abdominal Pain (ED), COVID-19 (Coronavirus Disease 2019) (ED) Additional Instructions: At this time there is no evidence to explain your abdominal pain. CT shows no evidence for appendicitis, bowel obstruction or any acute abnormality. There is no evidence for an infection. Formal However you are positive for Covid from your last visit 4 days ago. You may have body aches, fever, cough. Please take the [id number] multivitamin including vitamin C, vitamin D and zinc. Increase oral fluids. Follow up with primary care provider in 3-5 days. Return to ED sooner if any worsening or concerns. Increase oral fluids. Referrals: José Miguel Flores MD [Primary Care Provider] - 5 days Medical Decision Making 35-year-old male with a past medical history of anxiety, bipolar, hypertension, pulmonary artery hypertension, PEs, IVC filter in place, splenectomy and hernia repair presents to the ER with chief complaint of right lower quadrant abdominal pain which has been present for the last week. He reports it is becoming worse and more constant sometimes radiates over to the left lower quadrant. He reports that he has a week urine stream. He denies any nausea vomiting diarrhea. He denies any penile discharge or concern for STD. He was recently seen 4 days ago for URI type symptoms and is positive for Covid. Abdomen is soft. He reports drinking a lot of water today. He states that he took Advil 2 days ago but he is not supposed to. He declined offer for pain medication at this time. CBC largely at baseline white blood cell count slightly elevated 11.2, platelets are elevated 496 which seem the norm for this patient. CMP largely within normal limits. Bilirubin slightly elevated at 1.5, urinalysis within normal limits. IMPRESSION: 1. No acute findings of the abdomen or pelvis. 2. Minor posterior right lung base subsegmental airspace disease suggesting atelectasis. Cannot exclude a minor infiltrate. 3. Fatty liver change. 4. Contracted gallbladder. Cannot exclude tiny gallstones within the gallbladder lumen. 5. Previous distal pancreatectomy and splenectomy. 6. No acute bowel pathology. 7. IVC filter in position. 8. Degenerative lumbar spine. 9. Underdistended urinary bladder. No definitive acute bladder findings. Recommend correlation with urinalysis. No evidence of appendicitis noted on CT. At this time there is no indication for what is causing patient's pain. Plan is to discharge patient follow-up with PCP. Discussed results and home care and follow-up with patient who verbalized understanding. He has a PCP appointment on Wednesday. Discussed Covid and continued quarantine. HPI General Mode of arrival: ambulatory. Date/Time Provider Initiated Documentation: 07/21/21 20:40. Limitations to Documentation: no limitations and altered mental status (Severe anxiety). Information obtained by: patient, RN notes reviewed and old records reviewed. HPI Narrative: 35-year-old male with a past medical history of anxiety, bipolar, hypertension, pulmonary artery hypertension, PEs, IVC filter in place, splenectomy and hernia repair presents to the ER with chief complaint of right lower quadrant abdominal pain which has been present for the last week. He reports it is becoming worse and more constant sometimes radiates over to the left lower quadrant. He reports that he has a week urine stream. He denies any nausea vomiting diarrhea. He denies any penile discharge or concern for STD. He was recently seen 4 days ago for URI type symptoms and is positive for Covid. Abdomen is soft. He reports drinking a lot of water today. He states that he took Advil 2 days ago but he is not supposed to. He declined offer for pain medication at this time. Related Data Home Medications Medication Instructions Recorded Confirmed epinephrine 0.3 mg/0.3 mL 0.3 mg IJ DIRECTED PRN #2 kit 03/10/19 07/21/21 injection, auto-injector tamsulosin 0.4 mg capsule 0.4 mg PO DAILY 09/15/19 07/21/21 hydrocortisone 2.5 % topical 1 applic TP BID PRN #28.35 gm 04/04/20 07/21/21 ointment fluticasone propionate 50 1 spray MILLICENT DAILY PRN #9.9 ml 07/05/20 07/21/21 mcg/actuation nasal spray,suspension amitriptyline 10 mg tablet 10 mg PO QHS #30 tab 07/26/20 07/21/21 epinephrine [EpiPen 2-Farrukh] 0.3 mg IM ONCE #2 ea 07/29/20 07/21/21 famotidine 20 mg tablet 20 mg PO DAILY #90 tab 08/16/20 07/21/21 cetirizine 10 mg tablet 10 mg PO DAILY #90 tab-cap 08/23/20 07/21/21 pantoprazole 40 mg tablet,delayed 40 mg PO BID #180 tab 08/29/20 07/21/21 release betamethasone dipropionate 0.05 % 1 applic TOPICAL BID #15 g 10/14/20 07/21/21 topical ointment apixaban 5 mg tablet 5 mg PO BID #180 tab 11/29/20 07/21/21 diclofenac sodium 1 % topical gel 2 g TOPICAL QID PRN #150 g 01/17/21 07/21/21 triamcinolone acetonide 0.1 % 1 applic TP BID #30 gm 02/07/21 07/21/21 topical cream risperidone 0.25 mg tablet 0.25 mg PO BID #60 tab 02/28/21 07/21/21 sertraline 100 mg tablet 100 mg PO DAILY #90 tab 02/28/21 07/21/21 acetaminophen 500 mg tablet 1,000 mg PO TID PRN #270 tab 04/08/21 07/21/21 clonazepam 1 mg tablet 1 mg PO BID PRN #60 tab 05/12/21 07/21/21 Previous Rx's Medication Instructions Recorded epinephrine 0.3 mg/0.3 mL 0.3 mg IJ DIRECTED PRN #2 kit 03/10/19 injection, auto-injector hydrocortisone 2.5 % topical 1 applic TP BID PRN #28.35 gm 04/04/20 ointment fluticasone propionate 50 1 spray MILLICENT DAILY PRN #9.9 ml 07/05/20 mcg/actuation nasal spray,suspension amitriptyline 10 mg tablet 10 mg PO QHS #30 tab 07/26/20 epinephrine [EpiPen 2-Farrukh] 0.3 mg IM ONCE #2 ea 07/29/20 famotidine 20 mg tablet 20 mg PO DAILY #90 tab 08/16/20 cetirizine 10 mg tablet 10 mg PO DAILY #90 tab-cap 08/23/20 pantoprazole 40 mg tablet,delayed 40 mg PO BID #180 tab 08/29/20 release betamethasone dipropionate 0.05 % 1 applic TOPICAL BID #15 g 10/14/20 topical ointment apixaban 5 mg tablet 5 mg PO BID #180 tab 11/29/20 diclofenac sodium 1 % topical gel 2 g TOPICAL QID PRN #150 g 01/17/21 triamcinolone acetonide 0.1 % 1 applic TP BID #30 gm 02/07/21 topical cream risperidone 0.25 mg tablet 0.25 mg PO BID #60 tab 02/28/21 sertraline 100 mg tablet 100 mg PO DAILY #90 tab 02/28/21 acetaminophen 500 mg tablet 1,000 mg PO TID PRN #270 tab 04/08/21 clonazepam 1 mg tablet 1 mg PO BID PRN #60 tab 05/12/21 Allergies Allergy/AdvReac Type Severity Reaction Status Date / Time bacitracin Allergy Verified 07/21/21 20:56 dog dander Allergy Verified 07/21/21 20:56 beer Allergy Severe Anaphylaxsi Uncoded 07/21/21 20:56 s unknown anphalyxis Allergy Severe Anaphylaxsi Uncoded 07/17/21 09:14 s General Stated Complaint: Abd Prob CONSTANCE: 3 Review of Systems All systems reviewed & are unremarkable except as noted in HPI and below PFSH All Active Problems (Updated 07/21/21 @ 23:29 by Amanda Diego) COVID-19 (Acute) Elevated serum protein level (Acute) Chest pain (Acute) Cough (Acute) Pharyngitis (Acute) Hand pain, right (Acute) Pain, rectal (Acute) Abdominal pain (Acute) Left-sided thoracic back pain (Acute) Cholelithiasis (Acute) Vomiting (Acute) Acute epigastric pain (Acute) Leg numbness (Acute) Rash (Acute) Upper abdominal pain (Acute) GERD with esophagitis (Acute) Foreign body sensation in throat (Acute) Anxiety (Chronic) extreme and crippling Medical History Bipolar disorder DVT of axillary vein, acute bilateral (~02/2019) [facility] [place] Esophageal foreign body (~05/2018) Esophagitis determined by endoscopy (~05/2018) Essential hypertension PAH (pulmonary artery hypertension) 02/28/19 [facility] [place] ECHO (MILD) Priapism, drug-induced Pulmonary embolism, bilateral (~02/2019) [facility] [place] Dr. Flores [facility] [place] 08/2019; RECURRENT Thyroid mass (~02/2019) [facility] [place] Tricuspid regurgitation 02/28/19 [facility] [place] ECHO; MILD TO MOD Surgical History H/O hernia repair Unspecified site, repaired x3 History of splenectomy Priapism (~08/2019) 09/11/19 [facility] [place]; S/P PENILE SHUNT (AL-GHORAB) S/P IVC filter (~08/2019) [facility] [place] Social History Smoking/Tobacco Use Status: Never Smoking risk assessment performed?: Yes Alcohol Intake: never Drug use: Never Substance use type: does not use Current gender identity: male Do you feel safe at home: Yes Do you feel safe in your relationship?: Yes Exam Narrative Exam Narrative: Constitutional: Alert and oriented x3. Appears stated age. Normal body habitus. Very anxious. Avoids eye contact. Discussed that patient's baseline mental vegetation. Head: Normocephalic, no trauma. Eyes: Pupils PERRL, Red reflex noted, EOM's intact. Eyelids symmetrical without lesions, discharge, or swelling. ENT: Bilateral TM's WNL, External ear normal to inspection, no mastoid TTP, swelling, or erythema, Nasal turbinates WNL, no nasal discharge. Normal dentition, Posterior pharynx WNL, no exudate. Chest: RRR, Normal S1, S2, distal pulses intact. Resp: Lungs clear to auscultation bilaterally, no wheezes, rales, or rhonchi. Abdomen: Soft, non-distended, hypoactive bowel sounds all 4 quads. Genitourinary: No swelling erythema noted to scrotum. Nontender with palpation. No ureteral as needed erythema or drainage noted. No palpable hernia. no masses. Cremasteric reflex intact bilaterally. Musculoskeletal: Normal gait, 5/5 strength to all four extremities. Skin: No suspicious rashes or lesions. Capillary refill less than 2 sec. Neurologic: Cranial nerves II-XII intact. Alert and oriented x 3. Motor: No deficits noted. Sensory: Intact bilaterally all 4 extremities. Reflexes: DTR's intact bilaterally.. Hematologic/Lymphatic: No ecchymosis, no lymphadenopathy. Course Vital Signs Vital signs: Vital Signs Temperature 36.5 C 07/21/21 20:39 Pulse 90 07/21/21 20:39 Blood Pressure 136/85 07/21/21 20:39 Pulse Oximetry 95 07/21/21 20:39 Temperature 36.5 C 07/21/21 20:39 Temperature Source Temporal Artery Scan 07/21/21 20:39 Pulse 90 07/21/21 20:39 Respiratory Effort Non-Labored 07/21/21 20:51 Blood Pressure 136/85 07/21/21 20:39 Blood Pressure Position Sitting 07/21/21 20:39 Pulse Oximetry 95 07/21/21 20:39 Oxygen Delivery Method Room Air 07/21/21 20:39 Oxygen Flow Rate 0 07/21/21 20:39 Pain Level 8 07/21/21 20:51
[2021-07-21 21:21] LABS: ALT 30 U/L (16-63); AST 26 U/L (15-37); Albumin 4.3 g/dL (3.4-5.0); Alkaline Phosphatase 77 U/L (46-116); BUN 12 mg/dL (7-18); Bilirubin, Total 1.5 mg/dL (0.2-1.0); Calcium 9.1 mg/dL (8.5-10.1); Chloride 101 mmol/L (98-107); Glucose 97 mg/dL (74-106); Lipase 129 U/L (73-393); Potassium 3.5 mmol/L (3.5-5.1); Sodium 138 mmol/L (136-145); Total Protein 8.7 g/dL (6.4-8.2)
[2021-07-21 21:45] LABS: Absolute Neutrophil Count 4.07 10^3/uL (1.2-6.7); Atypical Lymphocytes % 22
[2021-07-21 21:46] LABS: Absolute Eosinophil Count 0.12 10^3/uL (0.0-0.7); Absolute Lymphocyte Count 6.04 10^3/uL (1.2-3.4); Absolute Monocyte Count 1.39 10^3/uL (0.1-0.8); Diff Comment Manual Differential; RBC Morphology Normal
[2021-07-21 21:57] LABS: Bilirubin Negative (Negative); Blood Negative (Negative); Clarity Clear (Clear); Glucose Negative (Negative); Ketones Negative (Negative); Leukocyte Esterase Negative (Negative); Nitrite Negative (Negative); Specific Gravity 1.025 (1.005-1.025); Urobilinogen 0.2 EU/dL (Up TO 0.2)
[2021-07-21] MEDS: Omnipaque 350 MG/ML 100 ML BTL IJ (21:57)
[2021-07-21] MEDS: Normal Saline Flush 10 ML SYR IVP (21:57)
--- NOTE | 2021-07-21 23:18 | DI.VRAD_ITS ---
PROCEDURE INFORMATION: Exam: CT Abdomen And Pelvis With Contrast Exam date and time: 07/21/2021 8:53 PM Age: 35 years old Clinical indication: Abdominal pain; Localized; Lower; Prior surgery; Surgery date: 6+ months; Surgery type: Ivc filter, splenectomy, hernia repair TECHNIQUE: Imaging protocol: Computed tomography of the abdomen and pelvis with contrast. Radiation optimization: All CT scans at this facility use at least one of these dose optimization techniques: automated exposure control; mA and/or kV adjustment per patient size (includes targeted exams where dose is matched to clinical indication); or iterative reconstruction. Contrast material: OMNIPAQUE 350; Contrast volume: 100 ml; Contrast route: INTRAVENOUS (IV); COMPARISON: CT CHEST PE ABD PELVIS W 04/25/2021 7:33 PM FINDINGS: Lungs: Minor posterior right lung base subsegmental airspace disease suggesting atelectasis. Pleural spaces: No pleural effusion. Heart: Normal heart size. No pericardial effusion. Liver: Diffuse mild fatty liver change. Gallbladder and bile ducts: Contracted gallbladder. Cannot exclude small gallstones within the gallbladder lumen. No biliary dilatation or acute features. Pancreas: Previous distal pancreatectomy. Pancreatic head and body are unremarkable. Spleen: Spleen is surgically absent. Adrenal glands: Normal. No mass. Kidneys and ureters: Normal. No hydronephrosis. Stomach and bowel: Gastric morphology is unremarkable. No edema. No gastric outlet obstruction. Small hiatal hernia without acute features.Small bowel loops are normal in course and caliber. There is no mucosal edema or bowel wall thickening. No obstructive features.The colon contains formed fecal material. There is no bowel wall thickening. No inflammatory features. No obstruction. Appendix: No evidence of appendicitis. A non inflamed appendix is seen on coronal series 5, images 74 through 79. Intraperitoneal space: No free fluid or free air. Vasculature: IVC filter is in position in the infrarenal inferior vena cava. Lymph nodes: Unremarkable. No enlarged lymph nodes. Urinary bladder: Urinary bladder is unremarkable. Under distended at time of imaging. Reproductive: Unremarkable as visualized. Bones/joints: Degenerative lumbar spine disease. Severe degenerative disc disease at L5-S1. Soft tissues: Unremarkable. IMPRESSION: 1. No acute findings of the abdomen or pelvis. 2. Minor posterior right lung base subsegmental airspace disease suggesting atelectasis. Cannot exclude a minor infiltrate. 3. Fatty liver change. 4. Contracted gallbladder. Cannot exclude tiny gallstones within the gallbladder lumen. 5. Previous distal pancreatectomy and splenectomy. 6. No acute bowel pathology. 7. IVC filter in position. 8. Degenerative lumbar spine. 9. Underdistended urinary bladder. No definitive acute bladder findings. Recommend correlation with urinalysis. Dictated and Authenticated by: Jose Luis Jimenez MD. Ordering:KIRA Patel MD
== END 2021-07-21 23:48 | disposition home or self-care (01) ==
PROVIDERS: Emergency Provider Registered Nurse Emergency; PCP Family Medicine
DX: R10.31 Right lower quadrant pain (principal); U07.1 COVID-19; R10.32 Left lower quadrant pain
CPT/HCPCS: 80053; 83690; 99285; 74177; 81003; 83735; 85025; 99283; J3490

== ENCOUNTER 2021-11-10 19:06 | Emergency (ER) | payer MEDICARE, MEDICAID, SELFPAY ==
[2021-11-10 19:15] VITALS: BP 146/46; PULSE 92; RESP 16; TEMP 37; O2SAT 96
[2021-11-10 20:15] LABS: Abs Immature Grans 0.04 10^3/uL (0.0-0.06); Absolute Basophil Count 0.03 10^3/uL (0.0-0.2); Absolute Neutrophil Count 7.52 10^3/uL (1.2-6.7); Basophils % 0.2; Eosinophils % 1.2; HCT 43.5 % (40.0-50.0); HGB 14.8 g/dL (13.5-17.5); Immature Grans % 0.3; MCH 30.5 pg (27.0-33.0); MCV 90 fL (80-95); MPV 9.6 fL (8.0-11.0); Monocytes % 8.8; Neutrophils % 54.5; Platelet Count 514 10^3/uL (130-400); RBC 4.86 10^6/uL (4.36-5.78); RDW 14.5 % (11.8-14.1); RDW-SD 47.3 fL; WBC 13.79 10^3/uL (4.4-10.8)
[2021-11-10 20:18] LABS: Absolute Eosinophil Count 0.17 10^3/uL (0.0-0.7); Absolute Lymphocyte Count 4.83 10^3/uL (1.2-3.4); Absolute Monocyte Count 1.21 10^3/uL (0.1-0.8)
[2021-11-10] MEDS: Ondansetron 4 MG/2 ML VIAL IVP (20:18)
[2021-11-10 20:31] LABS: ALT 33 U/L (16-63); AST 30 U/L (15-37); Albumin 4.1 g/dL (3.4-5.0); Alkaline Phosphatase 70 U/L (46-116); Anion Gap 8.9 mmol/L (3-11); BUN 12 mg/dL (7-18); Bilirubin, Total 2.1 mg/dL (0.2-1.0); CO2 27.1 mmol/L (21.0-32.0); CREATININE 1.1 mg/dL (0.70-1.30); Chloride 103 mmol/L (98-107); Glucose 98 mg/dL (74-106); Lipase 61 U/L (73-393); Potassium 3.4 mmol/L (3.5-5.1); Sodium 139 mmol/L (136-145); Total Protein 8.2 g/dL (6.4-8.2)
[2021-11-10 21:12] LABS: Bilirubin Negative (Negative); Blood Negative (Negative); Clarity Clear (Clear); Glucose Negative (Negative); Ketones Negative (Negative); Leukocyte Esterase Negative (Negative); Nitrite Negative (Negative); Specific Gravity 1.025 (1.005-1.025); Urobilinogen 0.2 EU/dL (Up TO 0.2)
--- NOTE | 2021-11-10 22:08 | W.ED.GENAD ---
Discharge Plan Disposition Patient Disposition: HOME Condition: Stable Discharge Details Clinical Impression: Abdominal pain, Nausea & vomiting Primary Care Provider: José Miguel Flores ED Provider: Salo Villa Home Meds and New Rx's Prescriptions: Continued famotidine [Pepcid] 20 mg tablet 20 mg PO DAILY Qty: 90 3RF pantoprazole 40 mg tablet,delayed release (DR/EC) 40 mg PO BID Qty: 180 3RF apixaban 5 mg tablet 5 mg PO BID Qty: 180 3RF risperidone 0.25 mg tablet 0.25 mg PO BID Qty: 60 11RF sertraline 100 mg tablet 100 mg PO DAILY Qty: 90 3RF hydrocortisone 2.5 % ointment 1 applic TP BID PRN (Reason: neck rash) Qty: 28.35 1RF betamethasone dipropionate 0.05 % ointment 1 applic topical BID Qty: 15 0RF Rx Instructions: apply to infected nailbed (right great toe) 2x daily diclofenac sodium [Voltaren Arthritis Pain] 1 % gel 2 g topical QID PRN (Reason: back pain) Qty: 150 1RF Rx Instructions: triamcinolone acetonide 0.1 % cream 1 applic TP BID Qty: 30 1RF Rx Instructions: apply for 10 days or until healed, whichever comes first acetaminophen [Tylenol Extra Strength] 500 mg tablet 1,000 mg PO TID PRN (Reason: pain/fever) Qty: 270 4RF clonazepam 1 mg tablet 1 mg PO BID PRN (Reason: anxiety) Qty: 60 5RF fluticasone propionate 50 mcg/actuation spray,suspension See Rx Instructions .ROUTE .COMPLEX Qty: 16 11RF Dose Instruction: USE ONE SPRAY IN EACH NOSTRIL ONCE DAILY Rx Instructions: USE ONE SPRAY IN EACH NOSTRIL ONCE DAILY cetirizine [Zyrtec] 10 mg tablet 10 mg PO DAILY Qty: 90 3RF epinephrine [EpiPen 2-Farrukh] 0.3 mg/0.3 mL auto-injector 0.3 mg IM ONCE Qty: 2 0RF Rx Instructions: as a single dose Discharge Instructions Instructions: Acute Nausea and Vomiting (ED), Abdominal Pain (ED) Additional Instructions: I am setting you up for a right upper quadrant ultrasound tomorrow, they should be contacting you first thing in the morning to establish a time of the ultrasound. After your ultrasound you will return to the ER for results and if symptoms are persisting you may also have a serial abdominal examination and potentially repeating a CBC and CMP. Please watch for new or worsening symptoms and return to the ER for any concerns. Lastly, I would contact your primary care provider tomorrow to discuss your ER visit and need for outpatient reevaluation. Medical Decision Making This is a 35-year-old gentleman, past medical history of bipolar disorder, hypertension, IVC filter, hernia repair, cholelithiasis, anxiety, presenting to the ER for he describes as acute on chronic abdominal pain, this episode of the past 2 days associate with nausea and vomiting. He states that he has been told that he has gallstones and will eventually need to have his gallbladder removed but he has not pursued this. He denies any other concerns or complaints this time. Denies fever, chest pain, shortness of breath, back pain, diarrhea, constipation. He has not taken any [id number] medication for his symptoms. Clinically he appears well, nontoxic, hemodynamically stable, he is afebrile. Plan is to obtain IV access, give IV Zofran, obtain routine screening laboratory values and reassess. Laboratory values to reveal mild nonspecific leukocytosis of 13.79 which appears near his baseline, chronic mild leukocytosis. His renal function is unremarkable. Total bili is 2.1 but other LFTs are completely normal. Lipase 61. When reviewing his total bili, 2.1 appears to be at or near his baseline as well. Given he tells me he has acute abdominal pain in general, this feels similar, he is afebrile now, abdomen is soft, nontender, no River sign, etc. in the setting of baseline laboratory values and a national shortage of IV contrast, of low suspicion for acute cholecystitis, will not pursue emergent IV contrast CT of his abdomen and pelvis. Instead we will set him up for a right upper quadrant ultrasound tomorrow morning, after this ultrasound he will return to the ER for results and he may have repeat serial abdominal examination and repeat CBC and CMP if indicated. Patient understands this plan and has no additional questions or concerns. Patient reports mild relief of Zofran reports heartburn, will give a single GI cocktail Patient reports moderate relief with the Mylanta and lidocaine. Standard discharge and return precautions were provided. Patient understands, is agreeable to this plan, and has no additional questions or concerns upon discharge. This documentation was generated using GLOation system, please disregard any oddities of phrase or misspellings. Medical Records Medical records reviewed: Yes I reviewed the patient's medical records. Lab Data Lab results reviewed: Yes I reviewed the patient's lab results. Labs: Laboratory Tests Range/Units 11/10/21 11/10/21 11/10/21 20:08 20:08 21:06 WBC (4.4-10.8) 10^3/uL 13.79 H RBC (4.36-5.78) 10^6/uL 4.86 Hgb (13.5-17.5) g/dL 14.8 Hct (40.0-50.0) % 43.5 MCV (80-95) fL 90 MCH (27.0-33.0) pg 30.5 MCHC (32.0-36.0) % 34.0 RDW (11.8-14.1) % 14.5 H Plt Count (130-400) 10^3/uL 514 H MPV (8.0-11.0) fL 9.6 Immature Gran % 0.3 Neutrophils % 54.5 Lymphocytes % 35.0 Monocytes % 8.8 Eosinophils % 1.2 Basophils % 0.2 Nucleated RBC % (0.0-0.3) % 0.0 Absolute Neutrophils (1.2-6.7) 10^3/uL 7.52 H Absolute Lymphocytes (1.2-3.4) 10^3/uL 4.83 H Absolute Monocytes (0.1-0.8) 10^3/uL 1.21 H Absolute Eosinophils (0.0-0.7) 10^3/uL 0.17 Absolute Basophils (0.0-0.2) 10^3/uL 0.03 Sodium (136-145) mmol/L 139 Potassium (3.5-5.1) mmol/L 3.4 L Chloride (98-107) mmol/L 103 Carbon Dioxide (21.0-32.0) mmol/L 27.1 Anion Gap (3-11) mmol/L 8.9 BUN (7-18) mg/dL 12 Creatinine (0.70-1.30) mg/dL 1.1 Estimated GFR/1.73 m2 (mL/min/1.73m2) >= 60.00 Glucose (74-106) mg/dL 98 Calcium (8.5-10.1) mg/dL 9.0 Total Bilirubin (0.2-1.0) mg/dL 2.1 H AST (15-37) U/L 30 ALT (16-63) U/L 33 Alkaline Phosphatase (46-116) U/L 70 Total Protein (6.4-8.2) g/dL 8.2 Albumin (3.4-5.0) g/dL 4.1 Lipase (73-393) U/L 61 Urine Color (Yellow) Yellow Urine Clarity (Clear) Clear Urine pH (5-8) 6.0 Ur Specific [place] (1.005-1.025) 1.025 Urine Protein (Negative) mg/dL Negative Urine Ketones (Negative) mg/dL Negative Urine Blood (Negative) Negative Urine Nitrite (Negative) Negative Urine Bilirubin (Negative) Negative Urine Urobilinogen (Up TO 0.2) EU/dL 0.2 Ur Leukocyte Esterase (Negative) Negative Urine Glucose (Negative) mg/dL Negative HPI General Mode of arrival: ambulatory. Date/Time Provider Initiated Documentation: 11/10/21 19:56. Limitations to Documentation: no limitations. Information obtained by: patient. History of Present Illness 35 year old M presents to the emergency department with the chief complaint of abd pain, described as moderate, with intensity rated at 5. Quality is described as aching, and is localized to the abdomen. Patient reports no radiation. Patient started experiencing this day(s) (2) and it has been intermittent. No relieving factors improve symptom(s), No exacerbating factors reported . Patient notes nausea/vomiting. Patient did receive the following treatments prior to arrival, none Related Data Home Medications Medication Instructions Recorded Confirmed hydrocortisone 2.5 % topical 1 applic topical BID PRN neck rash 04/04/20 08/29/21 ointment #28.35 grams epinephrine 0.3 mg/0.3 mL 0.3 mg (0.3 mL) IM ONCE #2 ea 07/29/20 08/29/21 injection, auto-injector (EpiPen 2-Farrukh) betamethasone dipropionate 0.05 % 1 applic topical BID #15 grams 10/14/20 08/29/21 topical ointment apixaban 5 mg tablet 5 mg PO BID #180 tabs 06/04/21 03/04/22 diclofenac sodium 1 % topical gel 2 g topical QID PRN back pain #150 01/17/21 08/29/21 (Voltaren Arthritis Pain) grams triamcinolone acetonide 0.1 % 1 applic topical BID hand rash #30 02/07/21 08/29/21 topical cream grams risperidone 0.25 mg tablet 0.25 mg PO BID #60 tabs 02/28/21 08/29/21 sertraline 100 mg tablet 100 mg PO DAILY #90 tabs 02/28/21 08/29/21 acetaminophen 500 mg tablet 1,000 mg PO TID PRN pain/fever 04/08/21 08/29/21 (Tylenol Extra Strength) #270 tabs clonazepam 1 mg tablet 1 mg PO BID PRN anxiety #60 tabs 05/12/21 08/29/21 fluticasone propionate 50 See Rx Instructions .Route 08/14/21 08/29/21 mcg/actuation nasal .COMPLEX #16 mL spray,suspension famotidine 20 mg tablet (Pepcid) 20 mg PO DAILY #90 tabs 08/29/21 08/29/21 pantoprazole 40 mg tablet,delayed 40 mg PO BID #180 tabs 08/29/21 08/29/21 release cetirizine 10 mg tablet (Zyrtec) 10 mg PO DAILY #90 tab-caps 09/15/21 Previous Rx's Medication Instructions Recorded hydrocortisone 2.5 % topical 1 applic topical BID PRN neck rash 04/04/20 ointment #28.35 grams epinephrine 0.3 mg/0.3 mL 0.3 mg (0.3 mL) IM ONCE #2 ea 07/29/20 injection, auto-injector (EpiPen 2-Farrukh) betamethasone dipropionate 0.05 % 1 applic topical BID #15 grams 10/14/20 topical ointment apixaban 5 mg tablet 5 mg PO BID #180 tabs 11/29/20 diclofenac sodium 1 % topical gel 2 g topical QID PRN back pain #150 01/17/21 (Voltaren Arthritis Pain) grams triamcinolone acetonide 0.1 % 1 applic topical BID hand rash #30 02/07/21 topical cream grams risperidone 0.25 mg tablet 0.25 mg PO BID #60 tabs 02/28/21 sertraline 100 mg tablet 100 mg PO DAILY #90 tabs 02/28/21 acetaminophen 500 mg tablet 1,000 mg PO TID PRN pain/fever 04/08/21 (Tylenol Extra Strength) #270 tabs clonazepam 1 mg tablet 1 mg PO BID PRN anxiety #60 tabs 05/12/21 fluticasone propionate 50 See Rx Instructions .Route 08/14/21 mcg/actuation nasal .COMPLEX #16 mL spray,suspension famotidine 20 mg tablet (Pepcid) 20 mg PO DAILY #90 tabs 08/29/21 pantoprazole 40 mg tablet,delayed 40 mg PO BID #180 tabs 08/29/21 release cetirizine 10 mg tablet (Zyrtec) 10 mg PO DAILY #90 tab-caps 09/15/21 Allergies Allergy/AdvReac Type Severity Reaction Status Date / Time bacitracin Allergy Verified 11/10/21 19:17 dog dander Allergy Verified 11/10/21 19:17 beer Allergy Severe Anaphylaxsi Uncoded 11/10/21 19:17 s unknown anphalyxis Allergy Severe Anaphylaxsi Uncoded 11/10/21 19:17 s General Stated Complaint: Abd Prob CONSTANCE: 3 Review of Systems Constitutional Constitutional: Denies fever(s) Cardiovascular Cardiovascular: Denies chest pain and Denies dyspnea Respiratory Respiratory: Denies cough and Denies dyspnea Gastrointestinal Gastrointestinal: Reports abdominal pain, Denies constipation, Denies diarrhea, Reports nausea and Reports vomiting Genitourinary Genitourinary: Denies dysuria Musculoskeletal Musculoskeletal: Denies back pain Integumentary/Breasts Skin/Breast: Denies rash PFSH All Active Problems Abdominal pain (Acute) Nausea & vomiting (Acute) COVID-19 (Acute) Elevated serum protein level (Acute) Chest pain (Acute) Hand pain, right (Acute) Pain, rectal (Acute) Abdominal pain (Acute) Left-sided thoracic back pain (Acute) Cholelithiasis (Acute) Vomiting (Acute) Acute epigastric pain (Acute) Leg numbness (Acute) Rash (Acute) Upper abdominal pain (Acute) GERD with esophagitis (Acute) Foreign body sensation in throat (Acute) Anxiety (Chronic) extreme and crippling Medical History Bipolar disorder DVT of axillary vein, acute bilateral (~02/2019[place] [facility] [place]ophageal foreign body (~05/2018) Esophagitis determined by endoscopy (~05/2018) Essential hypertension PAH (pulmonary artery hypertension) 02/28/19 [facility] (MILD) Priapism, drug-induced Pulmonary embolism, bilateral (~02/2019) [facility]. [place] [facility] [place]; RECURRENT Thyroid mass (~02/2019) [facility] [place] Tricuspid regurgitation 02/28/19 [facility] [place]; MILD TO MOD Surgical History H/O hernia repair Unspecified site, repaired x3 History of splenectomy Priapism (~08/2019) 09/11/19 [facility] [place] S/P PENILE SHUNT (AL-GHORAB) S/P IVC filter (~08/2019) [facility] Social History Smoking/Tobacco Use Status: Never Smoking risk assessment performed?: Yes Alcohol Intake: never Drug use: Never Substance use type: does not use Current gender identity: male Do you feel safe at home: Yes Do you feel safe in your relationship?: Yes Exam Const General: cooperative, healthy appearing, comfortable and no acute distress Orientation: alert and awake [facility] Head: normal to inspection, normocephalic and atraumatic Eyes General: appearance normal, both eyes and all related structures Conjunctivae: conjunctivae normal Neck Neck: normal visual inspection, full ROM, trachea midline and supple Resp Effort & Inspection: normal respiratory effort and able to speak in complete sentences Auscultation: clear to auscultation bilaterally Cardio Rate: regular rate Rhythm: regular rhythm GI Inspection: normal to inspection and obesity Palpation: soft, not firm, no guarding, no pulsatile masses and nontender Auscultation: normal bowel sounds Back/Spine/Pelvis Back: No back tenderness Skin General skin exam: no rashes or lesions noted Neuro General: patient alert, patient awake, moves all extremities and no focal motor deficits Cognition: normal cognition Speech: speech normal Gait: normal gait Sensory Exam: no sensory deficits noted Psych Appearance: grossly normal Mental Status: mental status grossly normal Course Vital Signs Vital signs: Vital Signs Temperature 37.0 C 05/16/22 19:15 Pulse 92 H 11/10/21 19:15 Respiratory Rate 16 11/10/21 19:15 Blood Pressure 146/46 H 11/10/21 19:15 Pulse Oximetry 96 11/10/21 19:15 Temperature 37.0 C 11/10/21 19:15 Temperature Source Oral 11/10/21 19:15 Pulse 92 H 11/10/21 19:15 Respiratory Rate 16 11/10/21 19:15 Respiratory Effort Non-Labored 11/10/21 19:17 Blood Pressure 146/46 H 11/10/21 19:15 Pulse Oximetry 96 11/10/21 19:15 Pain Level 10 11/10/21 19:15 Lab/Test Results Lab/Test Results: Laboratory Tests Range/Units 11/10/21 11/10/21 11/10/21 20:08 20:08 21:06 WBC (4.4-10.8) 10^3/uL 13.79 H RBC (4.36-5.78) 10^6/uL 4.86 Hgb (13.5-17.5) g/dL 14.8 Hct (40.0-50.0) % 43.5 MCV (80-95) fL 90 MCH (27.0-33.0) pg 30.5 MCHC (32.0-36.0) % 34.0 RDW (11.8-14.1) % 14.5 H Plt Count (130-400) 10^3/uL 514 H MPV (8.0-11.0) fL 9.6 Immature Gran % 0.3 Neutrophils % 54.5 Lymphocytes % 35.0 Monocytes % 8.8 Eosinophils % 1.2 Basophils % 0.2 Nucleated RBC % (0.0-0.3) % 0.0 Absolute Neutrophils (1.2-6.7) 10^3/uL 7.52 H Absolute Lymphocytes (1.2-3.4) 10^3/uL 4.83 H Absolute Monocytes (0.1-0.8) 10^3/uL 1.21 H Absolute Eosinophils (0.0-0.7) 10^3/uL 0.17 Absolute Basophils (0.0-0.2) 10^3/uL 0.03 Sodium (136-145) mmol/L 139 Potassium (3.5-5.1) mmol/L 3.4 L Chloride (98-107) mmol/L 103 Carbon Dioxide (21.0-32.0) mmol/L 27.1 Anion Gap (3-11) mmol/L 8.9 BUN (7-18) mg/dL 12 Creatinine (0.70-1.30) mg/dL 1.1 Estimated GFR/1.73 m2 (mL/min/1.73m2) >= 60.00 Glucose (74-106) mg/dL 98 Calcium (8.5-10.1) mg/dL 9.0 Total Bilirubin (0.2-1.0) mg/dL 2.1 H AST (15-37) U/L 30 ALT (16-63) U/L 33 Alkaline Phosphatase (46-116) U/L 70 Total Protein (6.4-8.2) g/dL 8.2 Albumin (3.4-5.0) g/dL 4.1 Lipase (73-393) U/L 61 Urine Color (Yellow) Yellow Urine Clarity (Clear) Clear Urine pH (5-8) 6.0 Ur Specific [place] (1.005-1.025) 1.025 Urine Protein (Negative) mg/dL Negative Urine Ketones (Negative) mg/dL Negative Urine Blood (Negative) Negative Urine Nitrite (Negative) Negative Urine Bilirubin (Negative) Negative Urine Urobilinogen (Up TO 0.2) EU/dL 0.2 Ur Leukocyte Esterase (Negative) Negative Urine Glucose (Negative) mg/dL Negative
[2021-11-10] MEDS: Ondansetron O.D.T. 4 MG TABEF, 3 TABS/BTL PO (22:40)
--- NOTE | 2021-11-11 07:47 | NUR.NOTE ---
Nursing Note: Patient called requesting that he have the left side of his abdomen US also. Per Dr Faria the order was changed to an abd US so that both quadrants would be done. Hilda Gordon
== END 2021-11-10 22:41 | disposition home or self-care (01) ==
PROVIDERS: Emergency Provider Physician Assistant; PCP Family Medicine
DX: R10.9 Unspecified abdominal pain (principal); R11.2 Nausea with vomiting, unspecified
CPT/HCPCS: 36415; 80053; 83690; 96374; 99284; 81003; 85025; 99283; J2405

== ENCOUNTER 2021-11-11 14:54 | Inpatient (IN) | payer MEDICARE, MEDICAID, SELFPAY ==
--- NOTE | 2021-11-11 15:08 | ED.GENADUL_ITS ---
Discharge Plan Disposition Patient Disposition: [facility] INPATIENT Condition: Stable Discharge Details Clinical Impression: Biliary colic, Hyperbilirubinemia, Leukocytosis Admit Date/Time: 11/11/21 17:36 Admit Provider: Erlinda Vu Attending Provider: Erlinda Vu Primary Care Provider: José Miguel Flores ED Provider: Ai Hill Discharge Data Discharge Date/Time-TO BE ENTERED AT DEPARTURE: 11/11/21 19:47 Medical Decision Making 1520 -- 35-year-old male with a history of obesity, hypertension, GERD, anxiety and cholelithiasis presents for results of his gallbladder ultrasound which was obtained today outpatient after seen in the ED yesterday for abdominal pain. Tympanic temperature on arrival 100.4. Patient was wearing a hoodie which was over his ear when temperature taken. Oral temp 98.5. His vitals are within normal limits. Patient states his abdominal pain is improved but still has dry heaving. His abdomen is minimally tender in the upper quadrants. Plan per providers notes from yesterday were as patient had continued symptoms, repeat lab work. His white blood cell count from yesterday was 13 and T bili 2.1. We will repeat labs, give a dose of Toradol and Zofran and reassess. Labs reviewed. White blood cell count 12. Potassium 3.3. T bili uptrending to 2.3. Case discussed with our general surgeon with consideration for admission here for dehydration and MRCP however patient has IVC filter and is on Eliquis. She is recommending call to [facility] for admission with likely plan for cholecystectomy. 1919 --discussed with [facility] transfer center and no surgery beds available. We will plan for general surgery consult. Discussed again with Dr. Vu and will admit here for admission overnight for dehydration fo IV fluids and with plan for outpatient referral to [facility]. Will hold on transfer to [facility] as patient is followed by [facility]. 1934 --Case discussed with Dr. Rendon [facility] general surgery who noted that the wait list for elective cholecystectomy could be 6 to 8 months. If patient needs cholecystectomy, can wait 24 hours off Eliquis then proceed with surgery. Medical Records Medical records reviewed: Yes I reviewed the patient's medical records. Lab Data Lab results reviewed: Yes I reviewed the patient's lab results. Labs: Laboratory Tests Range/Units 11/11/21 11/11/21 11/11/21 16:02 16:02 16:02 WBC (4.4-10.8) 10^3/uL 12.48 H RBC (4.36-5.78) 10^6/uL 4.91 Hgb (13.5-17.5) g/dL 15.0 Hct (40.0-50.0) % 45.0 MCV (80-95) fL 92 MCH (27.0-33.0) pg 30.5 MCHC (32.0-36.0) % 33.3 D RDW (11.8-14.1) % 14.5 H Plt Count (130-400) 10^3/uL 511 H MPV (8.0-11.0) fL 9.6 Immature Gran % 0.3 Neutrophils % 63.0 Lymphocytes % 27.4 Monocytes % 8.1 Eosinophils % 1.0 Basophils % 0.2 Nucleated RBC % (0.0-0.3) % 0.0 Absolute Neutrophils (1.2-6.7) 10^3/uL 7.86 H Absolute Lymphocytes (1.2-3.4) 10^3/uL 3.42 H Absolute Monocytes (0.1-0.8) 10^3/uL 1.01 H Absolute Eosinophils (0.0-0.7) 10^3/uL 0.12 Absolute Basophils (0.0-0.2) 10^3/uL 0.02 Sodium (136-145) mmol/L 140 Potassium (3.5-5.1) mmol/L 3.3 L Chloride (98-107) mmol/L 103 Carbon Dioxide (21.0-32.0) mmol/L 26.5 Anion Gap (3-11) mmol/L 10.5 BUN (7-18) mg/dL 12 Creatinine (0.70-1.30) mg/dL 1.0 Estimated GFR/1.73 m2 (mL/min/1.73m2) >= 60.00 Glucose (74-106) mg/dL 90 Calcium (8.5-10.1) mg/dL 8.7 Total Bilirubin (0.2-1.0) mg/dL 2.3 H Conjugated Bilirubin (0.0-0.2) mg/dL AST (15-37) U/L 29 ALT (16-63) U/L 32 Alkaline Phosphatase (46-116) U/L 67 Total Protein (6.4-8.2) g/dL 8.2 Albumin (3.4-5.0) g/dL 4.1 Lipase (73-393) U/L 57 COVID-19 Source Nasopharynx SARS-CoV-2 (PCR) (Negative) Negative Influenza Type A (PCR) (Negative) Negative Influenza Type B (PCR) (Negative) Negative RSV (PCR) (Negative) Negative Add-On Test Request Range/Units 11/11/21 11/11/21 16:02 Unknown WBC (4.4-10.8) 10^3/uL RBC (4.36-5.78) 10^6/uL Hgb (13.5-17.5) g/dL Hct (40.0-50.0) % MCV (80-95) fL MCH (27.0-33.0) pg MCHC (32.0-36.0) % RDW (11.8-14.1) % Plt Count (130-400) 10^3/uL MPV (8.0-11.0) fL Immature Gran % Neutrophils % Lymphocytes % Monocytes % Eosinophils % Basophils % Nucleated RBC % (0.0-0.3) % Absolute Neutrophils (1.2-6.7) 10^3/uL Absolute Lymphocytes (1.2-3.4) 10^3/uL Absolute Monocytes (0.1-0.8) 10^3/uL Absolute Eosinophils (0.0-0.7) 10^3/uL Absolute Basophils (0.0-0.2) 10^3/uL Sodium (136-145) mmol/L Potassium (3.5-5.1) mmol/L Chloride (98-107) mmol/L Carbon Dioxide (21.0-32.0) mmol/L Anion Gap (3-11) mmol/L BUN (7-18) mg/dL Creatinine (0.70-1.30) mg/dL Estimated GFR/1.73 m2 (mL/min/1.73m2) Glucose (74-106) mg/dL Calcium (8.5-10.1) mg/dL Total Bilirubin (0.2-1.0) mg/dL Conjugated Bilirubin (0.0-0.2) mg/dL 0.3 H AST (15-37) U/L ALT (16-63) U/L Alkaline Phosphatase (46-116) U/L Total Protein (6.4-8.2) g/dL Albumin (3.4-5.0) g/dL Lipase (73-393) U/L COVID-19 Source SARS-CoV-2 (PCR) (Negative) Influenza Type A (PCR) (Negative) Influenza Type B (PCR) (Negative) RSV (PCR) (Negative) Add-On Test Request DONE HPI General Mode of arrival: ambulatory . Date/Time Provider Initiated Documentation: 11/11/21 15:04 . Limitations to Documentation: no limitations . Information obtained by: patient . HPI Narrative: Patient is a 35-year-old male well-known to the emergency department with a history of chronic abdominal pain, GERD, anxiety, cholelithiasis who presents for upper abdominal pain, nausea and dry heaving for the past several days. Patient was seen here yesterday for the same complaint and had an outpatient gallbladder ultrasound ordered after hours which she returns for today which noted cholelithiasis but no evidence of cholecystitis. Patient states his abdom inal pain is improved but he still has some dry heaving. He denies any fever. Related Data Home Medications Medication Instructions Recorded Confirmed hydrocortisone 2.5 % topical 1 applic topical BID PRN neck rash 04/04/20 11/11/21 ointment #28.35 grams epinephrine 0.3 mg/0.3 mL 0.3 mg (0.3 mL) IM ONCE #2 ea 07/29/20 11/11/21 injection, auto-injector (EpiPen 2-Farrukh) betamethasone dipropionate 0.05 % 1 applic topical BID #15 grams 10/14/20 11/11/21 topical ointment apixaban 5 mg tablet 5 mg PO BID #180 tabs 11/29/20 11/11/21 diclofenac sodium 1 % topical gel 2 g topical QID PRN back pain #150 01/17/21 11/11/21 (Voltaren Arthritis Pain) grams triamcinolone acetonide 0.1 % 1 applic topical BID hand rash #30 02/07/21 11/11/21 topical cream grams risperidone 0.25 mg tablet 0.25 mg PO BID #60 tabs 02/28/21 11/11/21 sertraline 100 mg tablet 100 mg PO DAILY #90 tabs 02/28/21 11/11/21 acetaminophen 500 mg tablet 1,000 mg PO TID PRN pain/fever 04/08/21 11/11/21 (Tylenol Extra Strength) #270 tabs clonazepam 1 mg tablet 1 mg PO BID PRN anxiety #60 tabs 05/12/21 11/11/21 fluticasone propionate 50 See Rx Instructions .Route 08/14/21 11/11/21 mcg/actuation nasal .COMPLEX #16 mL spray,suspension famotidine 20 mg tablet (Pepcid) 20 mg PO DAILY #90 tabs 08/29/21 11/11/21 pantoprazole 40 mg tablet,delayed 40 mg PO BID #180 tabs 08/29/21 11/11/21 release cetirizine 10 mg tablet (Zyrtec) 10 mg PO DAILY #90 tab-caps 09/15/21 11/11/21 cetirizine 10 mg tablet mg 11/11/21 11/11/21 Previous Rx's Medication Instructions Recorded hydrocortisone 2.5 % topical 1 applic topical BID PRN neck rash 04/04/20 ointment #28.35 grams epinephrine 0.3 mg/0.3 mL 0.3 mg (0.3 mL) IM ONCE #2 ea 07/29/20 injection, auto-injector (LDR HoldingPen 2-Farrukh) betamethasone dipropionate 0.05 % 1 applic topical BID #15 grams 10/14/20 topical ointment apixaban 5 mg tablet 5 mg PO BID #180 tabs 11/29/20 diclofenac sodium 1 % topical gel 2 g topical QID PRN back pain #150 01/17/21 (Voltaren Arthritis Pain) grams triamcinolone acetonide 0.1 % 1 applic topical BID hand rash #30 02/07/21 topical cream grams risperidone 0.25 mg tablet 0.25 mg PO BID #60 tabs 02/28/21 sertraline 100 mg tablet 100 mg PO DAILY #90 tabs 02/28/21 acetaminophen 500 mg tablet 1,000 mg PO TID PRN pain/fever 04/08/21 (Tylenol Extra Strength) #270 tabs clonazepam 1 mg tablet 1 mg PO BID PRN anxiety #60 tabs 05/12/21 fluticasone propionate 50 See Rx Instructions .Route 08/14/21 mcg/actuation nasal .COMPLEX #16 mL spray,suspension famotidine 20 mg tablet (Pepcid) 20 mg PO DAILY #90 tabs 08/29/21 pantoprazole 40 mg tablet,delayed 40 mg PO BID #180 tabs 08/29/21 release cetirizine 10 mg tablet (Zyrtec) 10 mg PO DAILY #90 tab-caps 09/15/21 Allergies Allergy/AdvReac Type Severity Reaction Status Date / Time cat's claw Allergy Unknown Verified 11/11/21 18:00 neomycin Allergy Unknown Verified 11/11/21 18:00 [From Neosporin ([id number])] polymyxin B Allergy Unknown Verified 11/11/21 18:00 [From Neosporin ([id number])] bacitracin Allergy Verified 11/11/21 15:15 dog dander Allergy Verified 11/11/21 15:15 beer Allergy Severe Anaphylaxsi Uncoded 11/11/21 15:15 s General Stated Complaint: Abd Prob CONSTANCE: 3 Review of Systems All systems reviewed & are unremarkable except as noted in HPI and below Constitutional Constitutional: Denies chills, Denies excessive sweating, Denies fatigue, Denies fever(s), Denies weakness and Denies weight loss Eyes Eyes: Reports system reviewed and no additional complaints, except as documented and Denies blurry vision ENT Ears, Nose, Mouth, and Throat: Denies vertigo, Denies dizziness, Denies otalgia, Denies nasal congestion, Denies sore throat and Denies throat swelling Cardiovascular Cardiovascular: Denies chest pain, Denies syncope, Denies rapid heart rate and Denies dyspnea Respiratory Respiratory: Denies chest congestion, Denies cough, Denies pain on inspiration and Denies dyspnea Gastrointestinal Gastrointestinal: Reports abdominal pain, Denies diarrhea, Reports nausea and Denies vomiting Genitourinary Genitourinary: Denies hematuria, Denies dysuria and Denies flank pain Musculoskeletal Musculoskeletal: Denies back pain and Denies joint swelling Integumentary/Breasts Skin/Breast: Denies lesions and Denies rash Neurologic Neurologic: Denies behavioral changes, Denies confusion, Denies vertigo, Denies dizziness, Denies syncope, Denies localized weakness and Denies weakness Psychiatric Psychiatric: Denies behavioral changes, Denies confusion and Denies depression Endocrine Endocrine: Denies excessive sweating and Denies fatigue Hematologic/Lymphatic Hematologic/Lymphatic: Denies easy bruising and Denies lymphadenopathy Allergic/Immunologic Allergic/Immunologic: Denies throat swelling PFSH All Active Problems (Updated 11/13/21 @ 00:05 by JOCE TREJO) Hypokalemia due to excessive gastrointestinal loss of potassium (Acute) 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 Needs to remain on lifelong anti-caog Hereditary spherocytosis (Chronic) s/p splenectomy in 1991. Abdominal pain (Acute) Nausea & vomiting (Acute) Biliary colic (Acute) COVID-19 (Acute) Elevated serum protein level (Acute) Chest pain (Acute) Hand pain, right (Acute) Pain, rectal (Acute) Abdominal pain (Acute) Left-sided thoracic back pain (Acute) Cholelithiasis (Acute) Vomiting (Acute) Acute epigastric pain (Acute) Leg numbness (Acute) Rash (Acute) Upper abdominal pain (Acute) GERD with esophagitis (Acute) Anxiety (Chronic) extreme and crippling Medical History Bipolar disorder [place] of [place], [place]02/2019[place] [facility] (~05[place] Esophagitis determined by endoscopy (~05/2018) Essential hypertension PAH (pulmonary artery hypertension) [place]28[place] [facility] [place] Pulmonary embolism, bilateral (~02/2019[place] [facility] [place] [facility] [place] RECUR[place] Tricuspid regurgitation 02/28/[place] [facility] [place] TO MOD Surgical History Abnormal findings on esophagogastroduodenoscopy (EGD) H/O hernia repair Unspecified site, repaired x3 H/O superior vena cava filter placement History of splenectomy Priapism (~08/2019) 09[place]11/19 [facility] [place]P PENILE SHUNT (AL-GHORAB) S/P IVC filter (~08/2019) [facility] [place] Social History Smoking/Tobacco Use Status: Never Smoking risk assessment performed?: Yes Alcohol Intake: never Drug use: Never Substance use type: does not use Current gender identity: male Do you feel safe at home: Yes Do you feel safe in your relationship?: Yes Exam Const General: cooperative Orientation: alert, awake and oriented x3 HENMT Head: normal to inspection Ears: hearing grossly normal bilaterally, external ears normal and TM's normal bilaterally General nose exam: external nose normal Face and sinus: normal facial exam Mouth: oral mucosae normal Teeth and gingiva: dentition normal Throat: posterior oropharynx normal Eyes General: appearance normal, both eyes and all related structures Eyelids: eyelids normal Pupils: PERRL EOM: EOM intact bilaterally Neck Neck: normal visual inspection Lymphatic: no lymphadenopathy noted Chest Chest: normal inspection of the chest Resp Effort & Inspection: normal respiratory effort and able to speak in complete sentences Auscultation: clear to auscultation bilaterally Cardio Rate: regular rate Rhythm: regular rhythm GI Inspection: normal to inspection and obesity Palpation: soft, not firm, no guarding, no hepatosplenomegaly, no masses and tender in the LUQ and in the RUQ Auscultation: normal bowel sounds Back/Spine/Pelvis Back: no CVA tenderness Skin General skin exam: no rashes or lesions noted Neuro General: patient alert and patient awake Cognition: normal cognition Speech: speech normal Gait: normal gait Motor: muscle tone normal throughout Sensory Exam: no sensory deficits noted Extrem General: normal to inspection, full ROM and capillary refill normal Psych Appearance: grossly normal Mental Status: mental status grossly normal Speech and Movement: speech and movement normal Affect: normal affect Thought Process: normal
[2021-11-11 15:11] VITALS: BP 128/77; PULSE 78; RESP 18; TEMP 38; O2SAT 94
[2021-11-11 15:18] VITALS: TEMP 36.9
[2021-11-11 16:15] LABS: Abs Immature Grans 0.04 10^3/uL (0.0-0.06); Absolute Lymphocyte Count 3.42 10^3/uL (1.2-3.4); Absolute Monocyte Count 1.01 10^3/uL (0.1-0.8); Basophils % 0.2; Immature Grans % 0.3; Lymphocytes % 27.4; MCH 30.5 pg (27.0-33.0); MCHC 33.3 % (32.0-36.0); MCV 92 fL (80-95); MPV 9.6 fL (8.0-11.0); Monocytes % 8.1; Platelet Count 511 10^3/uL (130-400); RBC 4.91 10^6/uL (4.36-5.78); RDW 14.5 % (11.8-14.1); RDW-SD 48.1 fL; WBC 12.48 10^3/uL (4.4-10.8)
[2021-11-11 16:19] LABS: Absolute Basophil Count 0.02 10^3/uL (0.0-0.2); Absolute Eosinophil Count 0.12 10^3/uL (0.0-0.7); Absolute Neutrophil Count 7.86 10^3/uL (1.2-6.7)
[2021-11-11 16:45] LABS: ALT 32 U/L (16-63); AST 29 U/L (15-37); Albumin 4.1 g/dL (3.4-5.0); Alkaline Phosphatase 67 U/L (46-116); Anion Gap 10.5 mmol/L (3-11); BUN 12 mg/dL (7-18); Bilirubin, Total 2.3 mg/dL (0.2-1.0); CO2 26.5 mmol/L (21.0-32.0); Calcium 8.7 mg/dL (8.5-10.1); Chloride 103 mmol/L (98-107); Glucose 90 mg/dL (74-106); Lipase 57 U/L (73-393); Potassium 3.3 mmol/L (3.5-5.1); Sodium 140 mmol/L (136-145); Total Protein 8.2 g/dL (6.4-8.2)
[2021-11-11 16:57] LABS: COVID-19 PCR Negative (Negative); Influenza A PCR Negative (Negative); Influenza B PCR Negative (Negative); RSV PCR Negative (Negative)
[2021-11-11] MEDS: Ondansetron 4 MG/2 ML VIAL IVP (17:00)
[2021-11-11] MEDS: Ketorolac 30 MG/ML VIAL IVP (17:00)
[2021-11-11 17:02] LABS: Source Nasopharynx
[2021-11-11 17:05] VITALS: BP 132/80; PULSE 80; RESP 18; TEMP 37.4; O2SAT 95
--- NOTE | 2021-11-11 17:47 | HPE_ITS ---
Date of service: 11/11/21 Time of Service: 16:47 Assessment and Plan Assessment and plan (1) Acquired hypercoagulable state: Status: Chronic (2) Thrombocytosis after splenectomy: Status: Chronic (3) Elevated bilirubin: Status: Chronic (4) Priapism due to disease classified elsewhere: Status: Chronic (5) Anti-cardiolipin antibody positive: Status: Chronic (6) History of pulmonary embolism: Status: Chronic (7) Hereditary spherocytosis: Status: Chronic (8) Bipolar disorder: (9) Esophagitis determined by endoscopy: (10) Essential hypertension: (11) PAH (pulmonary artery hypertension): (12) Pulmonary embolism, bilateral: (13) Tricuspid regurgitation: (14) History of splenectomy: (15) S/P IVC filter: (16) H/O hernia repair: (17) GERD with esophagitis: Status: Acute (18) Anxiety: Status: Chronic (19) Cholelithiasis: Status: Acute Qualifiers: Biliary obstruction: without biliary obstruction Cholecystitis presence: without cholecystitis Cholelithiasis location: gallbladder Qualified Code(s): K80.20 - Calculus of gallbladder without cholecystitis without obstruction (20) Vomiting: Status: Acute History of Present Illness Narrative: Pt was in the ED c/o 11/10 c/o abdominal pain and n/v. He has a known hx of gallstones. He also had a 14 WBC and elevated T Zara. He has a very complicated medical History. 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 He had three hernia repairs done. 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 Needs to remain on lifelong anti-caog Hereditary spherocytosis (Chronic) s/p splenectomy in 1991. Abdominal pain (Acute) Nausea & vomiting (Acute) Biliary colic (Acute) Hyperbilirubinemia (Acute) Leukocytosis (Acute) COVID-19 (Acute) Elevated serum protein level (Acute) Chest pain (Acute) Hand pain, right (Acute) Pain, rectal (Acute) Abdominal pain (Acute) Left-sided thoracic back pain (Acute) Cholelithiasis (Acute) Vomiting (Acute) Acute epigastric pain (Acute) Leg numbness (Acute) Rash (Acute) Upper abdominal pain (Acute) GERD with esophagitis (Acute) Anxiety (Chronic) extreme and crippling Medical History (Updated 11/11/21 @ 18:22 by Erlinda Vu DO) Bipolar disorder DVT of axillary vein, acute bilateral (~02/2019) [facility] [place] Esophageal foreign body (~05/2018) Esophagitis determined by endoscopy (~05/2018) Essential hypertension PAH (pulmonary artery hypertension) 02/28/19 [facility] [place] ECHO (MILD) Pulmonary embolism, bilateral (~02/2019) [facility] [place] PE Dr. Flores [facility] [place]; RECURRENT Tricuspid regurgitation 02/28/19 [facility] [place]CHO; MILD TO MOD Surgical History (Updated 11/11/21 @ 18:22 by Erlinda Vu DO) Abnormal findings on esophagogastroduodenoscopy (EGD) H/O hernia repair Unspecified site, repaired x3 H/O superior vena cava filter placement History of splenectomy Priapism (~08/2019) 09/11/19 [facility] [place]; S/P PENILE SHUNT (AL-GHORAB) S/P IVC filter (~08/2019) [facility] [place] S/P partial thyroidectomy Social History Smoking/Tobacco Use Status: Never Smoking risk assessment performed?: Yes Alcohol Intake: never Drug use: Never Substance use type: does not use Current gender identity: male Do you feel safe at home: Yes Do you feel safe in your relationship?: Yes Meds Allergies and Home Medications Allergies Allergy/AdvReac Type Severity Reaction Status Date / Time cat's claw Allergy Unknown Verified 11/11/21 18:00 neomycin Allergy Unknown Verified 11/11/21 18:00 [From Neosporin ([id number])] polymyxin B Allergy Unknown Verified 11/11/21 18:00 [From Neosporin ([id number])] bacitracin Allergy Verified 11/11/21 15:15 dog dander Allergy Verified 11/11/21 15:15 beer Allergy Severe Anaphylaxsi Uncoded 11/11/21 15:15 s Home Medications Medication Instructions Recorded Confirmed Type hydrocortisone 2.5 % topical 1 applic topical BID PRN neck rash 04/04/20 11/11/21 Rx ointment #28.35 grams epinephrine 0.3 mg/0.3 mL 0.3 mg (0.3 mL) IM ONCE #2 ea 07/29/20 11/11/21 Rx injection, auto-injector (EpiPen 2-Farrukh) betamethasone dipropionate 0.05 % 1 applic topical BID #15 grams 10/14/20 11/11/21 Rx topical ointment apixaban 5 mg tablet 5 mg PO BID #180 tabs 11/29/20 11/11/21 Rx diclofenac sodium 1 % topical gel 2 g topical QID PRN back pain #150 01/17/21 11/11/21 Rx (Voltaren Arthritis Pain) grams triamcinolone acetonide 0.1 % 1 applic topical BID hand rash #30 02/07/21 11/11/21 Rx topical cream grams risperidone 0.25 mg tablet 0.25 mg PO BID #60 tabs 02/28/21 11/11/21 Rx sertraline 100 mg tablet 100 mg PO DAILY #90 tabs 02/28/21 11/11/21 Rx acetaminophen 500 mg tablet 1,000 mg PO TID PRN pain/fever 04/08/21 11/11/21 Rx (Tylenol Extra Strength) #270 tabs clonazepam 1 mg tablet 1 mg PO BID PRN anxiety #60 tabs 05/12/21 11/11/21 Rx fluticasone propionate 50 See Rx Instructions .Route 08/14/21 11/11/21 Rx mcg/actuation nasal .COMPLEX #16 mL spray,suspension famotidine 20 mg tablet (Pepcid) 20 mg PO DAILY #90 tabs 08/29/21 11/11/21 Rx pantoprazole 40 mg tablet,delayed 40 mg PO BID #180 tabs 08/29/21 11/11/21 Rx release cetirizine 10 mg tablet (Zyrtec) 10 mg PO DAILY #90 tab-caps 09/15/21 11/11/21 Rx cetirizine 10 mg tablet mg 05/17/22 05/17/22 History Results Labs Result diagrams: 11/11/21 16:02 11/11/21 16:02 Labs: Laboratory Results - last 24 hr 11/11/21 11/11/21 11/11/21 16:02 16:02 16:02 WBC 12.48 H RBC 4.91 Hgb 15.0 Hct 45.0 MCV 92 MCH 30.5 MCHC 33.3 D RDW 14.5 H Plt Count 511 H MPV 9.6 Immature Gran % 0.3 Neutrophils % 63.0 Lymphocytes % 27.4 Monocytes % 8.1 Eosinophils % 1.0 Basophils % 0.2 Nucleated RBC % 0.0 Absolute Neutrophils 7.86 H Absolute Lymphocytes 3.42 H Absolute Monocytes 1.01 H Absolute Eosinophils 0.12 Absolute Basophils 0.02 Sodium 140 Potassium 3.3 L Chloride 103 Carbon Dioxide 26.5 Anion Gap 10.5 BUN 12 Creatinine 1.0 Estimated GFR/1.73 m2 >= 60.00 Glucose 90 Calcium 8.7 Total Bilirubin 2.3 H AST 29 ALT 32 Alkaline Phosphatase 67 Total Protein 8.2 Albumin 4.1 Lipase 57 COVID-19 Source Nasopharynx SARS-CoV-2 (PCR) Negative Influenza Type A (PCR) Negative Influenza Type B (PCR) Negative RSV (PCR) Negative Last Vital Signs Temp 36.9 C 11/11/21 15:18 Pulse 78 11/11/21 15:11 Resp 18 11/11/21 15:11 BP 128/77 11/11/21 15:11 Pulse Ox 94 11/11/21 15:11
[2021-11-11] MEDS: PIPERACILLIN/TAZO 3.375 GM in Normal Saline 50 ML IVPB (18:30)
[2021-11-11 18:49] LABS: Lab Add On Test DONE
[2021-11-11 18:58] LABS: Bilirubin, Direct 0.3 mg/dL (0.0-0.2)
[2021-11-11 19:50] VITALS: BP 145/77; PULSE 78; RESP 26; TEMP 36.8; O2SAT 93
[2021-11-11] MEDS: ACETAMINOPHEN 1,000 MG/100 ML BTL 400 MG IVPB (20:26)
[2021-11-11] MEDS: Apixaban 5 MG TAB PO (20:26)
[2021-11-11] MEDS: Normal Saline Flush 10 ML SYR IVP (20:27)
--- NOTE | 2021-11-11 20:39 | PGE_ITS ---
Date of Service Date of service: 11/11/21 Time of Service: 16:47 Subjective Subjective Interval history since last seen: Pt was in the ED c/o 11/10 c/o abdominal pain and n/v. He has a known hx of gallstones. He had a 14 WBC and elevated T Zara. A CT scan was performed at that time. I did review the scan. He did receive lidocaine and Zofran and felt better and was discharged home. He came back to the ED 11/11 complaining of ab dominal pain and vomiting. He has not been able to keep anything down today. He has a potassium of 3.3 today. His white count is 13,000. An ultrasound was performed which did show gallstones. (Patient has a known history of gallstones but has not wanted to have gallbladder surgery). There was no gallbladder wall thickening or pericholecystic fluid noted around the gallbladder. Patient did n ot appear to have significant pain during the exam. Patient did not have a dilated common bile duct on his CT scan. His bilirubin is elevated at 2.3. (His direct bilirubin is 0.3.). However after reviewing his chart, he has had an elevated bilirubin since 2008. It ranges anywhere from 1.7 to a high of 3. He never had LFTs done when he was at [facility]. He has a very complicated medical History. 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 He had three hernia repairs done. He has had x2 cases of saddle emobolism. One spontaeously (2018) and another following and partial thyroidectomy (2019). The Thyroid nodule was benign. Both times he had massive PEs and massive clot burden. He was seen by hematology and he is anticardiolipin antibody positive. 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 They recommended that he stay on chronic anticoagulation. A vena cava filter was placed. This was placed in 2019 and it is a cook Efrain[place] filter in the infrarenal position. (The patient family member said that the patient could not have an MRI because of the filter. We will check with MRI in a.m.. Although, with his hx of anxiety, he may not be able to tolerate being in the MRI scanner). Both times when he had the emboli, he had significant right heart strain, dilation of the RV and some degree of cardiac compromise. I do not see that he has had an echo since 2019. 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 He has had no problems with anesthesia in the past. Dr. Hill did speak to [facility]. They on divert and not excepting noncritical patients at this time. Patient has had most of his care done at [facility]. And given the complexity of his case and his problems with emboli, he would be better served having the procedure done at [facility]. We will admit the patient for hydration and pain management, and electrolyte replacement. Repeat labs in AM. I do not know if the patient is going to be able to tolerate an MRI with his anxiety. I will order a repeat echo in the morning as well. I am going to start him on antibiotics. We will keep him on his apixaban for now. The surgical office will send referral down to [facility] for gallbladder removal. I did discuss the case with Dr. Munroe CT:FINDINGS: ABDOMEN: Lung Bases: Atelectasis in the right lung base. Liver: Normal density. No measurable mass. Portal, Superior Mesenteric, and Splenic Veins: Unremarkable.? Gallbladder and Biliary Tract: The gallbladder is contracted. Multiple stones are seen within the gallbladder. There is no biliary ductal dilatation. Pancreas: Normal density, no abnormal calcifications or inflammatory process. Spleen: The spleen is absent. There is a splenule again seen in the left upper quadrant. Adrenals: No masses seen. Kidneys: Normal size, contour and axis. No radiodense stones or obstructive uropathy. No masses seen. Abdominal Aorta: Abdominal portion non-dilated. IVC: There is an IVC filter in place. Bowel: No obstruction or bowel wall thickening. No evidence of appendicitis. Small hiatal hernia. Peritoneal Cavity: No ascites, collection or mesenteric inflammatory response.? No free air. Lymph Nodes: Within normal limits. Bones: Within normal limits for the patient's age.? Soft Tissues: Unremarkable. PELVIS: Bladder: There is diffuse thickening of the wall of the urinary bladder. The urinary bladder is underdistended. Reproductive Organs: Unremarkable as visualized. Lymph Nodes: Within normal limits. Bones: Within normal limits for the patient's age.? Objective Last Vital Signs Temp 37.4 C 11/11/21 17:05 Pulse 80 11/11/21 17:05 Resp 18 11/11/21 17:05 BP 132/80 11/11/21 17:05 Pulse Ox 95 11/11/21 17:05 Laboratory Results - last 24 hr 11/11/21 11/11/21 11/11/21 16:02 16:02 16:02 WBC 12.48 H RBC 4.91 Hgb 15.0 Hct 45.0 MCV 92 MCH 30.5 MCHC 33.3 D RDW 14.5 H Plt Count 511 H MPV 9.6 Immature Gran % 0.3 Neutrophils % 63.0 Lymphocytes % 27.4 Monocytes % 8.1 Eosinophils % 1.0 Basophils % 0.2 Nucleated RBC % 0.0 Absolute Neutrophils 7.86 H Absolute Lymphocytes 3.42 H Absolute Monocytes 1.01 H Absolute Eosinophils 0.12 Absolute Basophils 0.02 Sodium 140 Potassium 3.3 L Chloride 103 Carbon Dioxide 26.5 Anion Gap 10.5 BUN 12 Creatinine 1.0 Estimated GFR/1.73 m2 >= 60.00 Glucose 90 Calcium 8.7 Total Bilirubin 2.3 H Conjugated Bilirubin AST 29 ALT 32 Alkaline Phosphatase 67 Total Protein 8.2 Albumin 4.1 Lipase 57 COVID-19 Source Nasopharynx SARS-CoV-2 (PCR) Negative Influenza Type A (PCR) Negative Influenza Type B (PCR) Negative RSV (PCR) Negative Add-On Test Request 11/11/21 11/11/21 16:02 Unknown WBC RBC Hgb Hct MCV MCH MCHC RDW Plt Count MPV Immature Gran % Neutrophils % Lymphocytes % Monocytes % Eosinophils % Basophils % Nucleated RBC % Absolute Neutrophils Absolute Lymphocytes Absolute Monocytes Absolute Eosinophils Absolute Basophils Sodium Potassium Chloride Carbon Dioxide Anion Gap BUN Creatinine Estimated GFR/1.73 m2 Glucose Calcium Total Bilirubin Conjugated Bilirubin 0.3 H AST ALT Alkaline Phosphatase Total Protein Albumin Lipase COVID-19 Source SARS-CoV-2 (PCR) Influenza Type A (PCR) Influenza Type B (PCR) RSV (PCR) Add-On Test Request DONE
[2021-11-11] MEDS: Pantoprazole 40 MG VIAL IVP (21:26)
[2021-11-11] MEDS: risperiDONE 0.25 MG TAB PO (21:39)
[2021-11-11] MEDS: Lactated Ringers 1,000 ML 125 ML IV (22:20)
[2021-11-11] MEDS: POTASSIUM CHLORIDE 10 MEQ/100 ML BAG 100 MEQ IVPB (22:21)
[2021-11-11 23:55] VITALS: BP 136/76; PULSE 76; RESP 20; TEMP 36.8; O2SAT 96
[2021-11-12] MEDS: PIPERACILLIN/TAZO 3.375 GM in Normal Saline 50 ML IVPB ×3 (00:39→11:58)
[2021-11-12] MEDS: Normal Saline Flush 10 ML SYR IVP ×2 (00:40→06:23)
[2021-11-12] MEDS: ACETAMINOPHEN 1,000 MG/100 ML BTL 400 MG IVPB ×2 (01:45→09:29)
[2021-11-12 06:39] LABS: Abs Immature Grans 0.03 10^3/uL (0.0-0.06); Absolute Basophil Count 0.03 10^3/uL (0.0-0.2); Absolute Eosinophil Count 0.27 10^3/uL (0.0-0.7); Absolute Monocyte Count 1.02 10^3/uL (0.1-0.8); Absolute Neutrophil Count 6.05 10^3/uL (1.2-6.7); Basophils % 0.3; Eosinophils % 2.5; HCT 43.4 % (40.0-50.0); HGB 14.5 g/dL (13.5-17.5); Immature Grans % 0.3; Lymphocytes % 31.5; MCH 30.5 pg (27.0-33.0); MCHC 33.4 % (32.0-36.0); MCV 91 fL (80-95); MPV 9.7 fL (8.0-11.0); Monocytes % 9.4; Platelet Count 484 10^3/uL (130-400); RBC 4.76 10^6/uL (4.36-5.78); RDW 14.6 % (11.8-14.1); RDW-SD 48.7 fL
[2021-11-12 07:02] LABS: ALT 25 U/L (16-63); AST 23 U/L (15-37); Albumin 3.6 g/dL (3.4-5.0); Alkaline Phosphatase 65 U/L (46-116); Anion Gap 8.8 mmol/L (3-11); BUN 15 mg/dL (7-18); Bilirubin, Total 2.5 mg/dL (0.2-1.0); CO2 27.2 mmol/L (21.0-32.0); CREATININE 1.1 mg/dL (0.70-1.30); Calcium 8.2 mg/dL (8.5-10.1); Chloride 105 mmol/L (98-107); Glucose 89 mg/dL (74-106); Lipase 54 U/L (73-393); Magnesium 2.2 mg/dL (1.8-2.4); Potassium 3.4 mmol/L (3.5-5.1); Sodium 141 mmol/L (136-145); Total Protein 7.2 g/dL (6.4-8.2)
[2021-11-12 07:45] VITALS: BP 102/63; PULSE 80; RESP 25; TEMP 36.6; O2SAT 92
[2021-11-12 08:58] LABS: Lab Add On Test DONE
[2021-11-12 09:08] LABS: C-Reactive Protein 0.69 mg/dL (0.0-0.3)
--- NOTE | 2021-11-12 09:21 | W.PM.PROGNOT ---
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 Continue NPO IV Fluids IV Zosyn Pain Control Continue Chronic anticoagulation If abdominal pain continues to be resolved, will trial clear liquid diet. Subjective Subjective Interval history since last seen: patient appears to be resting comfortably. He nods his head to this providers questions. He denies having abdominal pain at this time. Exam Const General: cooperative Orientation: alert Resp Effort & Inspection: normal respiratory effort, no audible wheezes and no cough GI Inspection: normal to inspection Palpation: soft, no guarding and nontender Objective Last Vital Signs Temp 36.6 C 11/12/21 07:45 Pulse 80 11/12/21 07:45 Resp 25 H 11/12/21 07:45 BP 102/63 11/12/21 07:45 Pulse Ox 92 11/12/21 07:45 Laboratory Results - last 24 hr 11/11/21 11/11/21 11/11/21 16:02 16:02 16:02 WBC 12.48 H RBC 4.91 Hgb 15.0 Hct 45.0 MCV 92 MCH 30.5 MCHC 33.3 D RDW 14.5 H Plt Count 511 H MPV 9.6 Immature Gran % 0.3 Neutrophils % 63.0 Lymphocytes % 27.4 Monocytes % 8.1 Eosinophils % 1.0 Basophils % 0.2 Nucleated RBC % 0.0 Absolute Neutrophils 7.86 H Absolute Lymphocytes 3.42 H Absolute Monocytes 1.01 H Absolute Eosinophils 0.12 Absolute Basophils 0.02 Sodium 140 Potassium 3.3 L Chloride 103 Carbon Dioxide 26.5 Anion Gap 10.5 BUN 12 Creatinine 1.0 Estimated GFR/1.73 m2 >= 60.00 Glucose 90 Calcium 8.7 Magnesium Total Bilirubin 2.3 H Conjugated Bilirubin AST 29 ALT 32 Alkaline Phosphatase 67 C-Reactive Protein Total Protein 8.2 Albumin 4.1 Lipase 57 COVID-19 Source Nasopharynx SARS-CoV-2 (PCR) Negative Influenza Type A (PCR) Negative Influenza Type B (PCR) Negative RSV (PCR) Negative Add-On Test Request 11/11/21 11/11/21 11/12/21 16:02 Unknown 06:30 WBC RBC Hgb Hct MCV MCH MCHC RDW Plt Count MPV Immature Gran % Neutrophils % Lymphocytes % Monocytes % Eosinophils % Basophils % Nucleated RBC % Absolute Neutrophils Absolute Lymphocytes Absolute Monocytes Absolute Eosinophils Absolute Basophils Sodium 141 Potassium 3.4 L Chloride 105 Carbon Dioxide 27.2 Anion Gap 8.8 BUN 15 Creatinine 1.1 Estimated GFR/1.73 m2 >= 60.00 Glucose 89 Calcium 8.2 L Magnesium 2.2 Total Bilirubin 2.5 H Conjugated Bilirubin 0.3 H AST 23 ALT 25 Alkaline Phosphatase 65 C-Reactive Protein Total Protein 7.2 Albumin 3.6 Lipase 54 COVID-19 Source SARS-CoV-2 (PCR) Influenza Type A (PCR) Influenza Type B (PCR) RSV (PCR) Add-On Test Request DONE 11/12/21 11/12/21 11/12/21 06:30 06:30 06:30 WBC 10.80 RBC 4.76 Hgb 14.5 Hct 43.4 MCV 91 MCH 30.5 MCHC 33.4 RDW 14.6 H Plt Count 484 H MPV 9.7 Immature Gran % 0.3 Neutrophils % 56.0 Lymphocytes % 31.5 Monocytes % 9.4 Eosinophils % 2.5 Basophils % 0.3 Nucleated RBC % 0.0 Absolute Neutrophils 6.05 Absolute Lymphocytes 3.40 Absolute Monocytes 1.02 H Absolute Eosinophils 0.27 Absolute Basophils 0.03 Sodium Potassium Chloride Carbon Dioxide Anion Gap BUN Creatinine Estimated GFR/1.73 m2 Glucose Calcium Magnesium Total Bilirubin Conjugated Bilirubin AST ALT Alkaline Phosphatase C-Reactive Protein 0.69 H Total Protein Albumin Lipase COVID-19 Source SARS-CoV-2 (PCR) Influenza Type A (PCR) Influenza Type B (PCR) RSV (PCR) Add-On Test Request DONE
[2021-11-12] MEDS: clonazePAM 1 MG TAB PO (09:31)
[2021-11-12] MEDS: Cetirizine 10 MG TAB PO (09:31)
[2021-11-12] MEDS: Apixaban 5 MG TAB PO (09:31)
[2021-11-12] MEDS: risperiDONE 0.25 MG TAB PO (09:31)
[2021-11-12] MEDS: Sertraline 100 MG TAB PO (09:31)
[2021-11-12] MEDS: Lactated Ringers 1,000 ML 125 ML IV (09:43)
--- NOTE | 2021-11-12 09:47 | PDOC.CMIN ---
- If Service Date Differs Date of service: 11/12/21 Time of Service: 09:47 Care Management Initial Assess REASON FOR HOSPITALIZATION:: Biliary colic, Abdominal pain PAST MEDICAL HISTORY/PAST SURGICAL HISTORY:: Anxiety. Bipolar Disorder. Essential Hypertension. GERD with Esophagitis. Leg numbness. Surgical: Abnormal finding EGD. H/O Hernia Repair. H/O Superior vena cava filter placement. H/O splenectomy. S/P partial thyroidectomy PREVIOUS FUNCTIONAL STATUS/SOCIAL/FAMILY SUPPORTS:: Golden lives in [place] with his father Dewayne. He identifies his father and his sister Madina as being the primary supports in his life. Golden does not drive, but is independent with his ADL's. His father provides his transportation. CURRENT FUNCTIONAL STATUS:: Golden was lying in bed when CM met with him. He is limited in his conversation. He shares with CM that he wants to go home. He denies pain. His HIPAA on admission is blank, and Golden indicated that his his Father Dewayne and sister Madina should be on it. CM assisted Golden with updating his HIPAA. ADVANCE DIRECTIVES:: None on file. Has patient been provided with info about the portal/API?: Yes Did the patient sign up for the portal?: Yes (Prior to admission) CODE STATUS:: Full Code INSURANCE COVERAGE / FINANCIAL ISSUES:: Medicaid. Medicare CURRENT HOME/COMMUNITY SERVICES/EQUIPMENT:: None. PRIMARY CARE PHYSICIAN:: [facility] POTENTIAL DISCHARGE NEEDS:: Follow up appt with PCP and [facility] Gen. Surgery. Discharge plan of care PATIENT/FAMILY EDUCATION NEEDS:: Review discharge instructions, medications, limitations and plan to follow up with PCP and [facility] Gen. Surgery. ask me three. TRANSPORTATION:: via private vehicle with family. PLAN:: Golden requires hospital admission for IV pain medication, IV ABX and IV hydration. He is being followed by General Surgery. Anticipate, Golden will discharge home via private vehicle with family when medically ready per General Surgery. Golden will follow up with his PCP and Gen Surg at [facility]. CM will continue to support Golden and his discharge planning needs.
[2021-11-12] MEDS: Potassium Chloride 20 MEQ TABCR PO (11:57)
--- NOTE | 2021-11-12 13:18 | W.PM.DS.N ---
Date of service: 11/12/21 Time of Service: 12:18 DS: Diagnosis Discharge Diagnosis (1) Biliary colic: Status: Acute (2) Acquired hypercoagulable state: Status: Chronic (3) Thrombocytosis after splenectomy: Status: Chronic Discharge Plan Disposition Patient Disposition: HOME Condition: Stable Discharge Details Reason For Visit: Acute joseph w/stones Admit Date/Time: 11/11/21 17:36 Admit Provider: Erlinda Vu Attending Provider: Erlinda Vu Primary Care Provider: José Miguel Flores Hospital Course Hospital Course: Mr. Pichardo is a 35 year old male with an extensive and complicated PMHx who comes in last night with abdominal pain, N/V x [address] scan and US show no dilatation of the CBD or any signs of cholecystitis. He was admitted overnight for hydration. He has no pain today and has been able to tolerate some fluids without N/V. Plan is to discharge him home on clear liquids advance as tolerated to a low fat diet and a ref[place] [facility] [place] for consideration of outpatient Cholecystectomy. Home Meds and New Rx's Prescriptions: Continued famotidine [Pepcid] 20 mg tablet 20 mg PO DAILY Qty: 90 3RF pantoprazole 40 mg tablet,delayed release (DR/EC) 40 mg PO BID Qty: 180 3RF apixaban 5 mg tablet 5 mg PO BID Qty: 180 3RF risperidone 0.25 mg tablet 0.25 mg PO BID Qty: 60 11RF sertraline 100 mg tablet 100 mg PO DAILY Qty: 90 3RF hydrocortisone 2.5 % ointment 1 applic TP BID PRN (Reason: neck rash) Qty: 28.35 1RF betamethasone dipropionate 0.05 % ointment 1 applic topical BID Qty: 15 0RF Rx Instructions: apply to infected nailbed (right great toe) 2x daily diclofenac sodium [Voltaren Arthritis Pain] 1 % gel 2 g topical QID PRN (Reason: back pain) Qty: 150 1RF Rx Instructions: triamcinolone acetonide 0.1 % cream 1 applic TP BID Qty: 30 1RF Rx Instructions: apply for 10 days or until healed, whichever comes first acetaminophen [Tylenol Extra Strength] 500 mg tablet 1,000 mg PO TID PRN (Reason: pain/fever) Qty: 270 4RF clonazepam 1 mg tablet 1 mg PO BID PRN (Reason: anxiety) Qty: 60 5RF fluticasone propionate 50 mcg/actuation spray,suspension See Rx Instructions .ROUTE .COMPLEX Qty: 16 11RF Dose Instruction: USE ONE SPRAY IN EACH NOSTRIL ONCE DAILY Rx Instructions: USE ONE SPRAY IN EACH NOSTRIL ONCE DAILY cetirizine [Zyrtec] 10 mg tablet 10 mg PO DAILY Qty: 90 3RF epinephrine [EpiPen 2-Farrukh] 0.3 mg/0.3 mL auto-injector 0.3 mg IM ONCE Qty: 2 0RF Rx Instructions: as a single dose cetirizine 10 mg tablet Label Comments: TAKE ONE TABLET BY MOUTH DAILY Discharge Instructions Instructions: Biliary Colic (GEN), Low Fat Diet (DC) Additional Instructions: Activity at Home after surgery: 1. Normal activities Diet, Nutrition, & wound healin. Low fat diet as tolerated Pain Medications: 1. Tylenol 650mg every 6 hours as needed and Ibuprofen 600 mg every 6 hours as needed. You may alternate between the 2 medications every 3 hours For Constipation: 1. Take Milk of Magnesia or MiraLax as needed for constipation Please call our office if you develop: 1. Fevers >101.5 2. Nausea or Vomiting 3. Worsening pain 4. Redness and thick discharge from the wounds If after hours please call the Hospital at and ask to speak to the on-call surgeon Activity:: Activity as Tolerated Equipment/Supplies:: No Equipment Needed Diet:: low fat Discharge Orders Discharge Orders: Discharge Order (Routine); Ordered 11/12/21 Ordered By: Kianna Munroe DS: Summary Time Spent with Patient providing and/or coordinating discharge services: Less than 30 minutes Status at Discharge Functional status at discharge: independent ambulation Overall status at discharge: patient is back to baseline Mental Status: mental status grossly normal Speech and Movement: other (back to patients baseline) Mood: anxious mood Affect: anxious affect Exam Resp Effort & Inspection: normal respiratory effort Auscultation: clear to auscultation bilaterally Cardio Rate: regular rate Rhythm: regular rhythm GI Palpation: soft, no hepatosplenomegaly and nontender Psych Mental Status: mental status grossly normal Speech and Movement: other (back to patients baseline) Mood: anxious mood Affect: anxious affect DS: Data Vitals/I&O Vitals and I&O: Vital Signs Temperature 97.9 F 11/12/21 07:45 Temperature Source Tympanic 11/12/21 07:45 Pulse 80 11/12/21 07:45 Pulse Rhythm Regular 11/11/21 20:48 Respiratory Rate 25 H 11/12/21 07:45 Respiratory Effort 11/11/21 20:48 Respiratory Depth Normal 11/11/21 20:48 Respiratory Pattern Tachypnea 11/11/21 20:48 Blood Pressure 102/63 11/12/21 07:45 Pulse Oximetry 92 11/12/21 07:45 Oxygen Delivery Method Room Air 11/12/21 07:45 Oxygen Flow Rate 0 11/12/21 07:45 Pain Level 3 11/11/21 20:26 Intake & Output 11/11/21 11/12/21 11/12/21 23:59 11:59 23:59 Intake Total 150 / 150 1581.25 / 1581.25 Output Total 400 / 400 Balance 150 / 150 1181.25 / 1181.25 Weight 280 lb Intake: IV 150 / 150 1581.25 / 1581.25 Output: Urine 400 / 400 Other: Urine Color Yellow Urine Appearance Cloudy Urine Odor Normal Voiding Methods Urinal Data Completed and Pending Labs on day of discharge: Labs from last 24 hours 11/12/21 11/12/21 11/12/21 06:30 06:30 06:30 WBC 10.80 RBC 4.76 Hgb 14.5 Hct 43.4 MCV 91 MCH 30.5 MCHC 33.4 RDW 14.6 H Plt Count 484 H MPV 9.7 Immature Gran % 0.3 Neutrophils % 56.0 Lymphocytes % 31.5 Monocytes % 9.4 Eosinophils % 2.5 Basophils % 0.3 Nucleated RBC % 0.0 Absolute Neutrophils 6.05 Absolute Lymphocytes 3.40 Absolute Monocytes 1.02 H Absolute Eosinophils 0.27 Absolute Basophils 0.03 Sodium Potassium Chloride Carbon Dioxide Anion Gap BUN Creatinine Estimated GFR/1.73 m2 Glucose Calcium Magnesium Total Bilirubin Conjugated Bilirubin AST ALT Alkaline Phosphatase C-Reactive Protein 0.69 H Total Protein Albumin Lipase COVID-19 Source SARS-CoV-2 (PCR) Influenza Type A (PCR) Influenza Type B (PCR) RSV (PCR) Add-On Test Request DONE 11/12/21 11/11/21 11/11/21 06:30 Unknown 16:02 WBC RBC Hgb Hct MCV MCH MCHC RDW Plt Count MPV Immature Gran % Neutrophils % Lymphocytes % Monocytes % Eosinophils % Basophils % Nucleated RBC % Absolute Neutrophils Absolute Lymphocytes Absolute Monocytes Absolute Eosinophils Absolute Basophils Sodium 141 Potassium 3.4 L Chloride 105 Carbon Dioxide 27.2 Anion Gap 8.8 BUN 15 Creatinine 1.1 Estimated GFR/1.73 m2 >= 60.00 Glucose 89 Calcium 8.2 L Magnesium 2.2 Total Bilirubin 2.5 H Conjugated Bilirubin 0.3 H AST 23 ALT 25 Alkaline Phosphatase 65 C-Reactive Protein Total Protein 7.2 Albumin 3.6 Lipase 54 COVID-19 Source SARS-CoV-2 (PCR) Influenza Type A (PCR) Influenza Type B (PCR) RSV (PCR) Add-On Test Request DONE 11/11/21 11/11/21 11/11/21 16:02 16:02 16:02 WBC 12.48 H RBC 4.91 Hgb 15.0 Hct 45.0 MCV 92 MCH 30.5 MCHC 33.3 D RDW 14.5 H Plt Count 511 H MPV 9.6 Immature Gran % 0.3 Neutrophils % 63.0 Lymphocytes % 27.4 Monocytes % 8.1 Eosinophils % 1.0 Basophils % 0.2 Nucleated RBC % 0.0 Absolute Neutrophils 7.86 H Absolute Lymphocytes 3.42 H Absolute Monocytes 1.01 H Absolute Eosinophils 0.12 Absolute Basophils 0.02 Sodium 140 Potassium 3.3 L Chloride 103 Carbon Dioxide 26.5 Anion Gap 10.5 BUN 12 Creatinine 1.0 Estimated GFR/1.73 m2 >= 60.00 Glucose 90 Calcium 8.7 Magnesium Total Bilirubin 2.3 H Conjugated Bilirubin AST 29 ALT 32 Alkaline Phosphatase 67 C-Reactive Protein Total Protein 8.2 Albumin 4.1 Lipase 57 COVID-19 Source Nasopharynx SARS-CoV-2 (PCR) Negative Influenza Type A (PCR) Negative Influenza Type B (PCR) Negative RSV (PCR) Negative Add-On Test Request [facility] All Active Problems Hypokalemia due to excessive gastrointestinal loss of potassium (Acute) Acquired hypercoagulable state (Chronic) due to splenectomy Thrombocytosis after splenectomy (Chronic) 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 Needs to remain on lifelong anti-caog Hereditary spherocytosis (Chronic) s/p splenectomy in 1991. Abdominal pain (Acute) Nausea & vomiting (Acute) Biliary colic (Acute) Hyperbilirubinemia (Acute) Leukocytosis (Acute) COVID-19 (Acute) Elevated serum protein level (Acute) Chest pain (Acute) Hand pain, right (Acute) Pain, rectal (Acute) Abdominal pain (Acute) Left-sided thoracic back pain (Acute) Cholelithiasis (Acute) Vomiting (Acute) Acute epigastric pain (Acute) Leg numbness (Acute) Rash (Acute) Upper abdominal pain (Acute) GERD with esophagitis (Acute) Anxiety (Chronic) extreme and crippling Medical History Bipolar disorder DVT of axillary vein, acute bilateral (~02/2019) [facility] [place]ophageal foreign body (~05/2018) Esophagitis determined by endoscopy (~05/2018) Essential hypertension PAH (pulmonary artery hypertension) 02/28/19 [facility] ECHO (MILD) Pulmonary embolism, bilateral (~02/2019) [facility] [place] [facility] [place] RECURRENT Tricuspid regurgitation 02/28/19 [facility] [place]; MILD TO MOD Surgical History Abnormal findings on esophagogastroduodenoscopy (EGD) H/O hernia repair Unspecified site, repaired x3 H/O superior vena cava filter placement History of splenectomy Priapism (~08/2019) 09/11/19 [facility] [place] S/P PENILE SHUNT (AL-GHORAB) S/P IVC filter (~08/2019) [facility] [place]/P partial thyroidectomy Social History Smoking/Tobacco Use Status: Never Smoking risk assessment performed?: Yes Alcohol Intake: never Drug use: Never Substance use type: does not use Current gender identity: male Do you feel safe at home: Yes Do you feel safe in your relationship?: Yes
--- NOTE | 2021-11-12 13:30 | CMDISCH_ITS ---
- If Service Date Differs Date of service: 11/12/21 Time of Service: 13:31 LACE Index Scoring Tool - Questions: Length of Stay (in days): 1 Acuity (Admit via E.D.?): Yes E.D. Visits: 6 - Answers: Total Score: 8 Risk of Readmission: Low Risk Care Management Discharge Reason for Hospitalization: Biliary colic, Abdominal pain Discharge Plan: Discharge home via private vehicle with family. No new [facility] services are indicated at this time. Golden will follow up with his PCP (11/25/21 at 3:40p as scheduled) and a referral was sent to Gen. Surg at [facility] (who will reach out to Golden to schedule). Golden may resume a low fat diet as tolerated and may also alternated tylenol and ibuprofen PRN as directed for pain. CM reviewed this discharge plan with patient and his father Dewayne via phone. Patient/Family Education Needs: Review plan of care, limitations, medications, diet and plan to follow up with his PCP and [facility] Gen. Surgery as an outpatient. Review discharge instructions and ask me three.
--- NOTE | 2021-11-12 14:39 | CHAPLAIN ---
Goledn was in bed when I visited. Much of his head was wrapped in a balaclava. He didn't respond to my greeting or question, but I introduced myself, explained my role and offered support.
--- NOTE | 2021-12-02 20:19 | W.PM.PROGNOT ---
Date of Service Date of service: 11/07/21 Time of Service: 09:00 Assessment and Plan Assessment and plan (1) Cellulitis: Status: Acute Assessment and plan: Cellulitis of bilateral lower extremities This was handled via phone visit and pictures. Prescription for Augmentin called Objective Last Vital Signs Temp 36.6 C 11/12/21 07:45 Pulse 80 11/12/21 07:45 Resp 25 H 11/12/21 07:45 BP 102/63 11/12/21 07:45 Pulse Ox 92 11/12/21 07:45
== END 2021-11-12 14:54 | disposition home or self-care (01) | DRG 445 ==
LOC: ER 17:56 → MS 11-12 07:13
PROVIDERS: Admitting Provider Surgery; Emergency Provider Physician Assistant; PCP Family Medicine; Visit Provider Surgery
DX: K80.20 Calculus of gallbladder without cholecystitis without obstruction (principal); Z68.41 Body mass index [BMI] 40.0-44.9, adult; D68.61 Antiphospholipid syndrome; E89.0 Postprocedural hypothyroidism; E66.9 Obesity, unspecified; I10 Essential (primary) hypertension; D75.838 Other thrombocytosis; Z90.81 Acquired absence of spleen; F41.9 Anxiety disorder, unspecified; Z79.01 Long term (current) use of anticoagulants; D58.0 Hereditary spherocytosis; K21.9 Gastro-esophageal reflux disease without esophagitis; Z86.711 Personal history of pulmonary embolism
CPT/HCPCS: 36415; 80053; 83690; 87637; 99222; 99232; 99238; 76700; 82248; 83735; 85025; 86140; 93306; J0131; J1885; J2405; J2543; J3480

== ENCOUNTER → 2021-11-11 18:48 | Outpatient (CLI) | payer MEDICARE, MEDICAID, SELFPAY ==
--- NOTE | 2021-11-11 | DI.US_ITS ---
Exam(s) US ABDOMEN EXAM: US ABDOMEN CLINICAL HISTORY: RUQ PAIN, ABD PAIN, NAUSEA, VOMITING, H/O GALLSTONES TECHNIQUE: Ultrasound of complete upper abdomen performed using standard protocol. COMPARISON: US US ABDOMEN LIMITED from 09/06/[address] ABDOMEN PELVIS W from 07/21/2021 FINDINGS: There is no ascites evident. LIVER: There are no hepatic lesions evident nor obvious dilatation of intrahepatic ducts. GALLBLADDER/BILIARY: There are multiple mobile gallstones noted in the gallbladder lumen. Gallbladde r wall does not appear thickened and there is no pericholecystic fluid. The common hepatic duct isnot dilated, measuring 5mm at the level of alberto hepatis. PANCREAS: There is no evidence of pancreatic mass nor dilatation of the pancreatic duct. SPLEEN: Spleen is surgically absent. No abnormal findings the splenic fossa. KIDNEYS:Kidneys exhibit normal size with no evidence of solid mass, calculus, nor hydronephrosis. No cortical cysts evident. ABDOMINAL AORTA: There is no evidence of abdominal aortic aneurysm. IVC: This patient has an IVC filter, as per seen on CT scan of 07/21/2021.. IMPRESSION: 1. Cholelithiasis. There are multiple gallstones. Gallbladder wall thickness is upper normal. The re is no pericholecystic fluid or dilatation of biliary tree. Patient was apparently not tender over this area during scanning today. 2. No other significant ultrasound findings in the upper abdomen. 3. There is no ascites. DATA REPOSITORY:
== END ==
PROVIDERS: PCP Family Medicine; Visit Provider Physician Assistant
DX: R10.11 Right upper quadrant pain (principal); R11.2 Nausea with vomiting, unspecified; K80.20 Calculus of gallbladder without cholecystitis without obstruction; Z90.81 Acquired absence of spleen
CPT/HCPCS: 76700

== ENCOUNTER 2021-12-02 01:40 | Outpatient (CLI) | payer MEDICARE, MEDICAID, SELFPAY | END 2021-12-02 01:41 | disposition home or self-care (01) | LOC: LBO 01:40 | PROVIDERS: PCP Family Medicine; Visit Provider Family Medicine | DX: E03.9 Hypothyroidism, unspecified (principal) | CPT/HCPCS: 36415; 84443 ==

== ENCOUNTER 2022-02-14 23:37 | Emergency (ER) | payer MEDICARE, MEDICAID, SELFPAY ==
--- NOTE | 2022-02-14 23:47 | ED.GENADUL_ITS ---
Discharge Plan Disposition Patient Disposition: HOME Condition: Good Discharge Details Chief Complaint: Abd Prob Clinical Impression: Nausea, Upper abdominal pain Primary Care Provider: José Miguel Flores ED Provider: James Faria Home Meds and New Rx's Prescriptions: No Action famotidine [Pepcid] 20 mg tablet 20 mg PO DAILY Qty: 90 3RF pantoprazole 40 mg tablet,delayed release (DR/EC) 40 mg PO BID Qty: 180 3RF apixaban 5 mg tablet 5 mg PO BID Qty: 180 3RF sertraline 100 mg tablet 100 mg PO DAILY Qty: 90 3RF risperidone [Risperdal] 0.5 mg tablet 0.5 mg PO BID Qty: 60 11RF hydrocortisone 2.5 % ointment 1 applic TP BID PRN (Reason: neck rash) Qty: 28.35 1RF betamethasone dipropionate 0.05 % ointment 1 applic topical BID Qty: 15 0RF Rx Instructions: apply to infected nailbed (right great toe) 2x daily diclofenac sodium [Voltaren Arthritis Pain] 1 % gel 2 g topical QID PRN (Reason: back pain) Qty: 150 1RF Rx Instructions: acetaminophen [Tylenol Extra Strength] 500 mg tablet 1,000 mg PO TID PRN (Reason: pain/fever) Qty: 270 4RF fluticasone propionate 50 mcg/actuation spray,suspension See Rx Instructions .ROUTE .COMPLEX Qty: 16 11RF Dose Instruction: USE ONE SPRAY IN EACH NOSTRIL ONCE DAILY Rx Instructions: USE ONE SPRAY IN EACH NOSTRIL ONCE DAILY cetirizine [Zyrtec] 10 mg tablet 10 mg PO DAILY Qty: 90 3RF clonazepam 1 mg tablet 1 mg PO BID PRN (Reason: anxiety) Qty: 60 5RF cyclobenzaprine 10 mg tablet 10 mg PO TID PRN (Reason: muscle spasm) Qty: 20 1RF epinephrine [EpiPen 2-Farrukh] 0.3 mg/0.3 mL auto-injector 0.3 mg IM ONCE Qty: 2 0RF Rx Instructions: as a single dose triamcinolone acetonide 0.1 % cream 1 applic TP BID Qty: 30 1RF Rx Instructions: apply for 10 days or until healed, whichever comes first Discharge Instructions Instructions: Acute Nausea and Vomiting (ED), Abdominal Pain (ED) Additional Instructions: At this time your CT scan shows no evidence of significant surgical abnormality. You have been rehydrated. I suspect you have irritation of your stomach, and potentially irritation from your gallbladder that cause the pain and symptoms. Please take the Zofran as needed. Please follow-up closely with your surgeon. If you notice any worsening of your symptoms, or any new symptoms such as vomiting, diarrhea, fever, chills, shortness of breath, chest pain, numbness, weakness, or fainting , please return immediately to the emergency department for reevaluation. Please follow up with your primary care provider as soon as possible for reassessment and reevaluation. As always, it was a pleasure participating in your medical care today. Referrals: José Miguel Flores MD [Primary Care Provider] - Medical Decision Making 36-year-old male with a past medical history of debilitating anxiety, bipolar, priapism's, hereditary spherocytosis GERD, IVC filter, PEs and DVTs, pulmonary artery hypertension, esophagitis,?known gallstones, splenectomy, partial thyroidectomy, who presents for abdominal pain and nausea. He also states that he has been having chills. Patient is somewhat nonverbal when he does come to the emergency department secondary to his debilitating anxiety, however he is able to articulate that he has been having pain for the last day or so, he had rice and beans for dinner. No red sauce, spicy things or tomato based products. He admits to nausea but no vomiting. He denies any chest pain or shortness of breath. No other complaints at this time. Physical exam demonstrates mild right upper and left upper quadrant abdominal tenderness. Patient is tachycardic which is very normal for him in the emergency department, however his temperature is slightly elevated at 37.6. With his known history of gallstones it is likely matter of time before he gets cholecystitis. We will evaluate for this with imaging which I do think is indicated in this scenario. We will treat the patient's pain, monitor closely and reassess 2:47 AM Laboratory work-up has returned and is unremarkable. Lipase normal, white count mildly elevated at 16, no bandemia. Electrolytes normal, renal function good. On reassessment the patient has refused the morphine, he did take the Tylenol. He is feeling better, his abdominal exam remains nonsurgical. He does still feel nauseous. He feels comfortable going home. Patient remained stable otherwise. Symptoms consistent with mild biliary colic, and suspected enteritis versus gastric irritation. Will give Zofran for home use. Patient is admitted rehydrated here. No clinical evidence of pancreatitis, acute cholecystitis, or appendicitis. CT scan is negative for acute process aside for evidence of small gallstones in the gallbladder. Bilirubin is actually lower than normal, symptoms inconsistent with choledocholithiasis. Or ascending cholangitis. Patient stable for discharge. I have extensively reviewed the treatment plan and discharge instructions with the patient. I have addressed all patient concerns at this time. The patient was made aware of what symptoms to monitor for that would warrant a return to the emergency department. Discussed the plan with the patient, they demonstrate verbal understanding and agreement with our assessment and plan at this time. The documentation in this chart was dictated using [employer] dictation software. Please excuse any dictation errors. FINDINGS: Lungs: No lung base infiltrates. Pleural spaces: No pleural effusion. Heart: Normal heart size. No pericardial effusion. No coronary artery atherosclerotic calcium. Liver: Diffuse mild fatty liver change. Gallbladder and bile ducts: Multiple gallstones are seen layering dependently within the gallbladder and extending into the region of the gallbladder neck. There is no evidence of cystic duct stone. No gallbladder distention or gallbladder wall thickening. No biliary dilatation. No choledocholithiasis evident. Pancreas: The pancreas is normal in contour and attenuation. There appears to be a distal pancreatic tail resection. Spleen: Previous splenectomy. Adrenal glands: Normal. No mass. Kidneys and ureters: The kidneys bilaterally are unremarkable. Normal attenutation. No hydronephrosis. No calculi. Stomach and bowel: Gastric morphology is unremarkable. No edema. No gastric outlet obstruction. Small hiatal hernia. No acute edema. Small bowel loops are normal in course and caliber. There is no mucosal edema or bowel wall thickening. No obstructive features. The colon contains formed fecal material. There is no bowel wall thickening. No inflammatory features. No obstruction. Appendix: No evidence of appendicitis. Intraperitoneal space: Unremarkable. No free air. No significant fluid collection. Vasculature: There is an IVC filter in place. There is some perforation of the leg struts through the anterior and medial IVC wall. Lymph nodes: Unremarkable. No enlarged lymph nodes. Urinary bladder: Urinary bladder is unremarkable in appearance. No wall thickening. No intravesicular calculi. No intravesicular gas. Reproductive: Unremarkable as visualized. Bones/joints: Degenerative lumbar spine. Severe degenerative disc space narrowing at L5-S1. No acute fracture. Soft tissues: Unremarkable. IMPRESSION: 1. Multiple small gallstones are noted within the gallbladder. No acute biliary tract features. No gallbladder wall thickening. No biliary ductal dilatation. 2. No acute renal pathology. No hydronephrosis. No renal calculi. 3. Mild fatty liver change. 4. Previous splenectomy and distal pancreatectomy. 5. IVC filter is noted. There is perforation of leg struts through the caval wall as stated above. Stable since 07/21/2021. Thank you for allowing us to participate in the care of your patient. Dictated and Authenticated by: Jose Luis Jimenez MD 02/15/2022 2:15 AM Eastern Time ([place] & [place]) HPI General Date/Time Provider Initiated Documentation: 02/14/22 23:44 . HPI Narrative: 36-year-old male with a past medical history of debilitating anxiety, bipolar, priapism's, hereditary spherocytosis GERD, IVC filter, PEs and DVTs, pulmonary artery hypertension, esophagitis,?known gallstones, splenectomy, partial thyroidectomy, who presents for abdominal pain and nausea. He also states that he has been having chills. Patient is somewhat nonverbal when he does come to the emergency department secondary to his debilitating anxiety, however he is able to articulate that he has been having pain for the last day or so, he had rice and beans for dinner. No red sauce, spicy things or tomato based products. He admits to nausea but no vomiting. He denies any chest pain or shortness of breath. No other complaints at this time. Related Data Home Medications Medication Instructions Recorded Confirmed hydrocortisone 2.5 % topical 1 applic topical BID PRN neck rash 04/04/20 12/30/21 ointment #28.35 grams betamethasone dipropionate 0.05 % 1 applic topical BID #15 grams 10/14/20 12/30/21 topical ointment diclofenac sodium 1 % topical gel 2 g topical QID PRN back pain #150 01/17/21 12/30/21 (Voltaren Arthritis Pain) grams acetaminophen 500 mg tablet 1,000 mg PO TID PRN pain/fever 04/08/21 02/15/22 (Tylenol Extra Strength) #270 tabs fluticasone propionate 50 See Rx Instructions .Route 08/14/21 02/15/22 mcg/actuation nasal .COMPLEX #16 mL spray,suspension famotidine 20 mg tablet (Pepcid) 20 mg PO DAILY #90 tabs 08/29/21 02/15/22 pantoprazole 40 mg tablet,delayed 40 mg PO BID #180 tabs 08/29/21 02/15/22 release cetirizine 10 mg tablet (Zyrtec) 10 mg PO DAILY #90 tab-caps 09/15/21 02/15/22 apixaban 5 mg tablet 5 mg PO BID #180 tabs 11/25/21 02/15/22 sertraline 100 mg tablet 100 mg PO DAILY #90 tabs 11/25/21 02/15/22 clonazepam 1 mg tablet 1 mg PO BID PRN anxiety #60 tabs 11/26/21 02/15/22 cyclobenzaprine 10 mg tablet 10 mg PO TID PRN muscle spasm #20 12/20/21 02/15/22 tabs risperidone 0.5 mg tablet 0.5 mg PO BID #60 tabs 12/30/21 02/15/22 (Risperdal) epinephrine 0.3 mg/0.3 mL 0.3 mg (0.3 mL) IM ONCE #2 ea 01/03/22 02/15/22 injection, auto-injector (EpiPen 2-Farrukh) triamcinolone acetonide 0.1 % 1 applic topical BID hand rash #30 01/19/22 topical cream grams Previous Rx's Medication Instructions Recorded hydrocortisone 2.5 % topical 1 applic topical BID PRN neck rash 04/04/20 ointment #28.35 grams betamethasone dipropionate 0.05 % 1 applic topical BID #15 grams 10/14/20 topical ointment diclofenac sodium 1 % topical gel 2 g topical QID PRN back pain #150 01/17/21 (Voltaren Arthritis Pain) grams acetaminophen 500 mg tablet 1,000 mg PO TID PRN pain/fever 04/08/21 (Tylenol Extra Strength) #270 tabs fluticasone propionate 50 See Rx Instructions .Route 08/14/21 mcg/actuation nasal .COMPLEX #16 mL spray,suspension famotidine 20 mg tablet (Pepcid) 20 mg PO DAILY #90 tabs 08/29/21 pantoprazole 40 mg tablet,delayed 40 mg PO BID #180 tabs 08/29/21 release cetirizine 10 mg tablet (Zyrtec) 10 mg PO DAILY #90 tab-caps 09/15/21 apixaban 5 mg tablet 5 mg PO BID #180 tabs 11/25/21 sertraline 100 mg tablet 100 mg PO DAILY #90 tabs 11/25/21 clonazepam 1 mg tablet 1 mg PO BID PRN anxiety #60 tabs 11/26/21 cyclobenzaprine 10 mg tablet 10 mg PO TID PRN muscle spasm #20 12/20/21 tabs risperidone 0.5 mg tablet 0.5 mg PO BID #60 tabs 12/30/21 (Risperdal) epinephrine 0.3 mg/0.3 mL 0.3 mg (0.3 mL) IM ONCE #2 ea 01/03/22 injection, auto-injector (EpiPen 2-Farrukh) triamcinolone acetonide 0.1 % 1 applic topical BID hand rash #30 01/19/22 topical cream grams Allergies Allergy/AdvReac Type Severity Reaction Status Date / Time cat's claw Allergy Unknown Verified 02/15/22 00:02 neomycin Allergy Unknown Verified 02/15/22 00:02 [From Neosporin ([id number])] polymyxin B Allergy Unknown Verified 02/15/22 00:02 [From Neosporin ([id number])] bacitracin Allergy Verified 02/15/22 00:02 dog dander Allergy Verified 02/15/22 00:02 beer Allergy Severe Anaphylaxsi Uncoded 02/15/22 00:02 s General CONSTANCE: 4 Review of Systems All systems reviewed & are unremarkable except as noted in HPI and below PFSH All Active Problems (Updated 02/15/22 @ 02:51 by James Faria DO) Nausea (Acute) Cellulitis (Acute) Thyroid dysfunction (Acute) Hypokalemia due to excessive gastrointestinal loss of potassium (Acute) 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 Needs to remain on lifelong anti-caog Hereditary spherocytosis (Chronic) s/p splenectomy in 1991. Biliary colic (Acute) COVID-19 (Acute) Elevated serum protein level (Acute) Chest pain (Acute) Hand pain, right (Acute) Pain, rectal (Acute) Abdominal pain (Acute) Left-sided thoracic back pain (Acute) Cholelithiasis (Acute) Vomiting (Acute) Acute epigastric pain (Acute) Leg numbness (Acute) Rash (Acute) Upper abdominal pain (Acute) GERD with esophagitis (Acute) Anxiety (Chronic) extreme and crippling Medical History Acquired hypercoagulable state due to splenectomy Bipolar disorder DVT of axillary vein, acute bilateral (~02/2019) [facility] [place] Esophageal foreign body (~05/2018) Esophagitis determined by endoscopy (~05/2018) Essential hypertension Hyperbilirubinemia PAH (pulmonary artery hypertension) 02/28/19 [facility] [place] ECHO (MILD) Pulmonary embolism, bilateral (~02/2019) [facility] [place]. Flores [facility] [place] 08/2019; RECURRENT Thrombocytosis after splenectomy Tricuspid regurgitation 02/28/19 [facility] [place] ECHO; MILD TO MOD Surgical History Abnormal findings on esophagogastroduodenoscopy (EGD) H/O hernia repair Unspecified site, repaired x3 H/O superior vena cava filter placement History of splenectomy Priapism (~08/2019) 09/11/19 [facility] [place]; S/P PENILE SHUNT (AL-GHORAB) S/P IVC filter (~08/2019) [facility] [place] S/P partial thyroidectomy Social History Smoking/Tobacco Use Status: Never Smoking risk assessment performed?: Yes Alcohol Intake: never Drug use: Never Substance use type: does not use Current gender identity: male Do you feel safe at home: Yes Do you feel safe in your relationship?: Yes Exam Narrative Exam Narrative: 1.Const: Well-nourished, Well-developed, appearing stated age 2.Eyes: PERRL, no conjunctival injection, and symmetrical lids. 3.ENT: Atraumatic external nose and ears. Moist MM. Neck: Symmetric, trachea midline, No thyromegaly. 4.CVS: +S1/S2, No murmurs or gallops. Peripheral pulses 2+ and equal in all extremities. Brisk capillary refill in all extremities. 5.RESP: Unlabored respiratory effort. Clear to auscultation bilaterally. No wheezes rales or rhonchi 6.GI: Soft, nondistended, mild tenderness throughout, particularly in the right upper and left upper abdominal quadrants. No pain to McBurney's point. Negative River sign. 7.MSK: Normocephalic/Atraumatic, Extremities w/o deformity or ttp No cyanosis or clubbing, Normal movement of all extremities 8.Skin: Warm, Dry. No rashes or lesions. 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 Sensation grossly intact, no focal neurologic deficits. 10.Psych: (AAO) x3. Appropriate mood and affect
[2022-02-14 23:59] VITALS: PULSE 131; RESP 20; TEMP 37.6; O2SAT 94
--- NOTE | 2022-02-15 | DI.CT_ITS ---
Exam(s) CT ABDOMEN PELVIS W EXAM: CT ABDOMEN PELVIS W CLINICAL HISTORY: ruq pain, fever, vomiting, hx of gall stones TECHNIQUE: COMPARISON: CT CT ABDOMEN PELVIS W from 07/21/2021 FINDINGS: CT examination of the abdomen and pelvis was performed with bolus infusion of 100 cc of Omnipaque 350 . Images obtained through the lung bases are unremarkable. The liver appears normal with no evidence of a focal mass. Spleen is absent.. There are multiple gallstones noted. No gallbladder wall thickening or pericholecystic fluid collect ion. No biliary dilatation.. Pancreas appears truncated, question prior pancreatic surgery. No focal abnormality of visualized pa ncreatic tissue period. Adrenals appear normal bilaterally. Kidneys appear normal with no evidence of renal mass, hydronephrosis, or nephrolithiasis. Unremarkab le bladder. There is no evidence of abdominal or pelvic adenopathy. Abdominal aorta is of normal diameter and no abnormality is seen involving major visceral branches.. IVC filter noted in position. Appendix is not specifically visualized but there is no evidence of appendicitis l. No evidence diver ticulitis or bowel obstruction. No significant abdominal wall hernia seen. Impression: No evidence of acute intra-abdominal process.. RADIATION DOSE DELIVERED: 1,665.93mGy.cm Total DLP 1,665.93mGy.cm Total DLP !Error CTDIvol DATA REPOSITORY: All CT scans at this facility are submitted to the National Radiology Data Registry (NRDR) Dose Index Registry (DIR) with the [employer] (ACR). RADIATION OPTIMIZATION: All CT scans at this facility use at least one of these dose optimization te chniques: automated exposure control; mA and/or kV adjustment per patient size (includes targeted exa ms where dose is matched to clinical indication); or iterative reconstruction.
[2022-02-15] MEDS: ACETAMINOPHEN 1,000 MG/100 ML BTL 400 MG IVPB (00:38)
[2022-02-15] MEDS: Ondansetron 4 MG/2 ML VIAL IVP ×2 (00:38→03:19)
[2022-02-15] MEDS: Normal Saline 1,000 ML 1000 ML IV (00:38)
[2022-02-15 00:39] LABS: Abs Immature Grans 0.05 10^3/uL (0.0-0.06); Absolute Basophil Count 0.03 10^3/uL (0.0-0.2); Absolute Lymphocyte Count 0.97 10^3/uL (1.2-3.4); Absolute Monocyte Count 1.18 10^3/uL (0.1-0.8); Basophils % 0.2; Eosinophils % 0.6; HCT 45.4 % (40.0-50.0); HGB 15.2 g/dL (13.5-17.5); Immature Grans % 0.3; MCH 30.9 pg (27.0-33.0); MCHC 33.5 % (32.0-36.0); MCV 92 fL (80-95); MPV 9.4 fL (8.0-11.0); Monocytes % 7.3; Neutrophils % 85.6; Platelet Count 492 10^3/uL (130-400); RBC 4.92 10^6/uL (4.36-5.78); RDW 14.4 % (11.8-14.1); WBC 16.12 10^3/uL (4.4-10.8)
[2022-02-15 00:53] LABS: ALT 25 U/L (16-63); AST 20 U/L (15-37); Albumin 3.9 g/dL (3.4-5.0); Alkaline Phosphatase 78 U/L (46-116); Anion Gap 8.3 mmol/L (3-11); BUN 16 mg/dL (7-18); Bilirubin, Total 1.6 mg/dL (0.2-1.0); CO2 29.7 mmol/L (21.0-32.0); CREATININE 1.2 mg/dL (0.70-1.30); Calcium 8.6 mg/dL (8.5-10.1); Chloride 100 mmol/L (98-107); Glucose 115 mg/dL (74-106); Lipase 115 U/L (73-393); Potassium 3.7 mmol/L (3.5-5.1); Sodium 138 mmol/L (136-145); Total Protein 8.1 g/dL (6.4-8.2)
[2022-02-15] MEDS: Omnipaque 350 MG/ML 100 ML BTL IJ (01:24)
[2022-02-15 01:36] VITALS: BP 116/54
--- NOTE | 2022-02-15 02:16 | DI.VRAD_ITS ---
PROCEDURE INFORMATION: Exam: CT Abdomen And Pelvis With Contrast Exam date and time: 02/15/2022 1:10 AM Age: 36 years old Clinical indication: Abdominal pain; Other: Ruq TECHNIQUE: Imaging protocol: Computed tomography of the abdomen and pelvis with contrast. Contrast material: OMNIPAQUE 350; Contrast volume: 100 ml; Contrast route: INTRAVENOUS (IV); COMPARISON: CT ABDOMEN PELVIS W 07/21/2021 10:00 PM FINDINGS: Lungs: No lung base infiltrates. Pleural spaces: No pleural effusion. Heart: Normal heart size. No pericardial effusion. No coronary artery atherosclerotic calcium. Liver: Diffuse mild fatty liver change. Gallbladder and bile ducts: Multiple gallstones are seen layering dependently within the gallbladder and extending into the region of the gallbladder neck. There is no evidence of cystic duct stone. No gallbladder distention or gallbladder wall thickening. No biliary dilatation. No choledocholithiasis evident. Pancreas: The pancreas is normal in contour and attenuation. There appears to be a distal pancreatic tail resection. Spleen: Previous splenectomy. Adrenal glands: Normal. No mass. Kidneys and ureters: The kidneys bilaterally are unremarkable. Normal attenutation. No hydronephrosis. No calculi. Stomach and bowel: Gastric morphology is unremarkable. No edema. No gastric outlet obstruction. Small hiatal hernia. No acute edema. Small bowel loops are normal in course and caliber. There is no mucosal edema or bowel wall thickening. No obstructive features. The colon contains formed fecal material. There is no bowel wall thickening. No inflammatory features. No obstruction. Appendix: No evidence of appendicitis. Intraperitoneal space: Unremarkable. No free air. No significant fluid collection. Vasculature: There is an IVC filter in place. There is some perforation of the leg struts through the anterior and medial IVC wall. Lymph nodes: Unremarkable. No enlarged lymph nodes. Urinary bladder: Urinary bladder is unremarkable in appearance. No wall thickening. No intravesicular calculi. No intravesicular gas. Reproductive: Unremarkable as visualized. Bones/joints: Degenerative lumbar spine. Severe degenerative disc space narrowing at L5-S1. No acute fracture. Soft tissues: Unremarkable. IMPRESSION: 1. Multiple small gallstones are noted within the gallbladder. No acute biliary tract features. No gallbladder wall thickening. No biliary ductal dilatation. 2. No acute renal pathology. No hydronephrosis. No renal calculi. 3. Mild fatty liver change. 4. Previous splenectomy and distal pancreatectomy. 5. IVC filter is noted. There is perforation of leg struts through the caval wall as stated above. Stable since 07/21/2021. Dictated and Authenticated by: Jose Luis Jimenez MD. Ordering:DONELL Ramirez MD
[2022-02-15] MEDS: Ondansetron O.D.T. 4 MG TABEF, 3 TABS/BTL PO (03:19)
[2022-02-15 03:20] VITALS: BP 117/48; PULSE 98; RESP 22; TEMP 36.6; O2SAT 94
[2022-02-15 03:26] VITALS: BP 117/48; PULSE 98; RESP 22; TEMP 36.6; O2SAT 94
== END 2022-02-15 03:32 | disposition home or self-care (01) ==
PROVIDERS: Emergency Provider Student in an Organized Health Care Education/Training Program; PCP Family Medicine
DX: R10.11 Right upper quadrant pain (principal); R10.12 Left upper quadrant pain; R11.0 Nausea; R50.9 Fever, unspecified; D72.829 Elevated white blood cell count, unspecified; I10 Essential (primary) hypertension
CPT/HCPCS: 80053; 83690; 96361; 96374; 96375; 96376; 99285; 74177; 85025; 99284; J0131; J2405; J3490

== ENCOUNTER 2022-04-06 18:37 | Emergency (ER) | payer MEDICARE, MEDICAID, SELFPAY ==
[2022-04-06 18:44] VITALS: BP 153/84; PULSE 88; RESP 16; TEMP 36.5; O2SAT 95
--- NOTE | 2022-04-06 18:57 | W.ED.GENAD ---
Discharge Plan Disposition Patient Disposition: HOME Condition: Stable Discharge Details Clinical Impression: Ingrown nail of great toe Primary Care Provider: José Miguel Flores ED Provider: Misbah Pritchett Home Meds and New Rx's Prescriptions: New cephalexin 500 mg capsule 500 mg PO QID 5 Days Qty: 20 0RF No Action famotidine [Pepcid] 20 mg tablet 20 mg PO DAILY Qty: 90 3RF pantoprazole 40 mg tablet,delayed release (DR/EC) 40 mg PO BID Qty: 180 3RF apixaban 5 mg tablet 5 mg PO BID Qty: 180 3RF sertraline 100 mg tablet 100 mg PO DAILY Qty: 90 3RF risperidone [Risperdal] 0.5 mg tablet 0.5 mg PO BID Qty: 60 11RF hydrocortisone 2.5 % ointment 1 applic TP BID PRN (Reason: neck rash) Qty: 28.35 1RF betamethasone dipropionate 0.05 % ointment 1 applic topical BID Qty: 15 0RF Rx Instructions: apply to infected nailbed (right great toe) 2x daily diclofenac sodium [Voltaren Arthritis Pain] 1 % gel 2 g topical QID PRN (Reason: back pain) Qty: 150 1RF Rx Instructions: fluticasone propionate 50 mcg/actuation spray,suspension See Rx Instructions .ROUTE .COMPLEX Qty: 16 11RF Dose Instruction: USE ONE SPRAY IN EACH NOSTRIL ONCE DAILY Rx Instructions: USE ONE SPRAY IN EACH NOSTRIL ONCE DAILY cetirizine [Zyrtec] 10 mg tablet 10 mg PO DAILY Qty: 90 3RF clonazepam 1 mg tablet 1 mg PO BID PRN (Reason: anxiety) Qty: 60 5RF epinephrine [EpiPen 2-Farrukh] 0.3 mg/0.3 mL auto-injector 0.3 mg IM ONCE Qty: 2 0RF Rx Instructions: as a single dose triamcinolone acetonide 0.1 % cream 1 applic TP BID Qty: 30 1RF Rx Instructions: apply for 10 days or until healed, whichever comes first acetaminophen [Tylenol Extra Strength] 500 mg tablet 1,000 mg PO TID PRN (Reason: pain/fever) Qty: 270 4RF cyclobenzaprine 10 mg tablet 10 mg PO TID PRN (Reason: muscle spasm) Qty: 20 1RF Discharge Instructions Instructions: Ingrown Nail (ED) Additional Instructions: Please follow-up with primary care physician. 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 Please return the emergency department for any worsening symptoms Medical Decision Making 36-year-old male presents with painful left great toe, swelling and intermittent light bleeding and drainage from nail fold over the past couple of days, afebrile nontoxic no systemic signs of illness; evidence of early ingrown toenail, no active bleeding; will treat empirically with Keflex, will provide follow-up with podiatry and home care instructions HPI General Date/Time Provider Initiated Documentation: 04/06/22 18:49. HPI Narrative: 36-year-old male presents with several days of left great toe swelling localized bleeding, and slight drainage from near nailbed Related Data Home Medications Medication Instructions Recorded Confirmed hydrocortisone 2.5 % topical 1 applic topical BID PRN neck rash 04/04/20 04/06/22 ointment #28.35 grams betamethasone dipropionate 0.05 % 1 applic topical BID #15 grams 10/14/20 04/06/22 topical ointment diclofenac sodium 1 % topical gel 2 g topical QID PRN back pain #150 01/17/21 04/06/22 (Voltaren Arthritis Pain) grams fluticasone propionate 50 See Rx Instructions .Route 08/14/21 04/06/22 mcg/actuation nasal .COMPLEX #16 mL spray,suspension famotidine 20 mg tablet (Pepcid) 20 mg PO DAILY #90 tabs 08/29/21 04/06/22 pantoprazole 40 mg tablet,delayed 40 mg PO BID #180 tabs 08/29/21 04/06/22 release cetirizine 10 mg tablet (Zyrtec) 10 mg PO DAILY #90 tab-caps 09/15/21 04/06/22 apixaban 5 mg tablet 5 mg PO BID #180 tabs 11/25/21 04/06/22 sertraline 100 mg tablet 100 mg PO DAILY #90 tabs 11/25/21 04/06/22 clonazepam 1 mg tablet 1 mg PO BID PRN anxiety #60 tabs 11/26/21 04/06/22 risperidone 0.5 mg tablet 0.5 mg PO BID #60 tabs 12/30/21 04/06/22 (Risperdal) epinephrine 0.3 mg/0.3 mL 0.3 mg (0.3 mL) IM ONCE #2 ea 01/03/22 04/06/22 injection, auto-injector (EpiPen 2-Farrukh) triamcinolone acetonide 0.1 % 1 applic topical BID hand rash #30 01/19/22 04/06/22 topical cream grams acetaminophen 500 mg tablet 1,000 mg PO TID PRN pain/fever 02/18/22 04/06/22 (Tylenol Extra Strength) #270 tabs cyclobenzaprine 10 mg tablet 10 mg PO TID PRN muscle spasm #20 03/03/22 04/06/22 tabs cephalexin 500 mg capsule 500 mg PO QID 5 days #20 caps 04/06/22 Previous Rx's Medication Instructions Recorded hydrocortisone 2.5 % topical 1 applic topical BID PRN neck rash 04/04/20 ointment #28.35 grams betamethasone dipropionate 0.05 % 1 applic topical BID #15 grams 10/14/20 topical ointment diclofenac sodium 1 % topical gel 2 g topical QID PRN back pain #150 01/17/21 (Voltaren Arthritis Pain) grams fluticasone propionate 50 See Rx Instructions .Route 08/14/21 mcg/actuation nasal .COMPLEX #16 mL spray,suspension famotidine 20 mg tablet (Pepcid) 20 mg PO DAILY #90 tabs 08/29/21 pantoprazole 40 mg tablet,delayed 40 mg PO BID #180 tabs 08/29/21 release cetirizine 10 mg tablet (Zyrtec) 10 mg PO DAILY #90 tab-caps 09/15/21 apixaban 5 mg tablet 5 mg PO BID #180 tabs 11/25/21 sertraline 100 mg tablet 100 mg PO DAILY #90 tabs 11/25/21 clonazepam 1 mg tablet 1 mg PO BID PRN anxiety #60 tabs 11/26/21 risperidone 0.5 mg tablet 0.5 mg PO BID #60 tabs 12/30/21 (Risperdal) epinephrine 0.3 mg/0.3 mL 0.3 mg (0.3 mL) IM ONCE #2 ea 01/03/22 injection, auto-injector (EpiPen 2-Farrukh) triamcinolone acetonide 0.1 % 1 applic topical BID hand rash #30 01/19/22 topical cream grams acetaminophen 500 mg tablet 1,000 mg PO TID PRN pain/fever 02/18/22 (Tylenol Extra Strength) #270 tabs cyclobenzaprine 10 mg tablet 10 mg PO TID PRN muscle spasm #20 03/03/22 tabs cephalexin 500 mg capsule 500 mg PO QID 5 days #20 caps 04/06/22 Allergies Allergy/AdvReac Type Severity Reaction Status Date / Time cat's claw Allergy Unknown Verified 04/06/22 18:47 neomycin Allergy Unknown Verified 04/06/22 18:47 [From Neosporin ([id number])] polymyxin B Allergy Unknown Verified 04/06/22 18:47 [From Neosporin ([id number])] bacitracin Allergy Verified 04/06/22 18:47 dog dander Allergy Verified 04/06/22 18:47 beer Allergy Severe Anaphylaxsi Uncoded 04/06/22 18:47 s General Stated Complaint: Orthopedic CONSTANCE: 3 Review of Systems Narrative: Review of Systems Constitutional: negative Eyes: negative ENT: negative Cardiovascular: negative Respiratory: negative Gastrointestinal: negative : negative Musculoskeletal: negative Skin: Toe swelling, pain, bleeding, drainage Neurologic: negative Psych: negative PFSH All Active Problems (Updated 04/06/22 @ 19:08 by Misbah Pritchett MD) Ingrown nail of great toe (Acute) Cellulitis (Acute) Thyroid dysfunction (Acute) Hypokalemia due to excessive gastrointestinal loss of potassium (Acute) 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 Needs to remain on lifelong anti-caog Hereditary spherocytosis (Chronic) s/p splenectomy in 1991. Biliary colic (Acute) COVID-19 (Acute) Elevated serum protein level (Acute) Chest pain (Acute) Hand pain, right (Acute) Pain, rectal (Acute) Abdominal pain (Acute) Left-sided thoracic back pain (Acute) Cholelithiasis (Acute) Vomiting (Acute) Acute epigastric pain (Acute) Leg numbness (Acute) Rash (Acute) Upper abdominal pain (Acute) GERD with esophagitis (Acute) Anxiety (Chronic) extreme and crippling Medical History Acquired hypercoagulable state due to splenectomy Bipolar disorder DVT of axillary vein, acute bilateral (~02/2019) [facility] [place] Esophageal foreign body (~05/2018) Esophagitis determined by endoscopy (~05/2018) Essential hypertension Hyperbilirubinemia PAH (pulmonary artery hypertension) 02/28/19 [facility] [place] ECHO (MILD) Pulmonary embolism, bilateral (~02/2019) [facility] [place] PE Dr. Flores [facility] [place] 08/2019; RECURRENT Thrombocytosis after splenectomy Tricuspid regurgitation 02/28/19 [facility] [place] ECHO; MILD TO MOD Surgical History Abnormal findings on esophagogastroduodenoscopy (EGD) H/O hernia repair Unspecified site, repaired x3 H/O superior vena cava filter placement History of splenectomy Priapism (~08/2019) 09/11/19 [facility] [place]; S/P PENILE SHUNT (AL-GHORAB) S/P IVC filter (~08/2019) [facility] [place] S/P partial thyroidectomy Social History Smoking/Tobacco Use Status: Never Smoking risk assessment performed?: Yes Alcohol Intake: never Drug use: Never Substance use type: does not use Current gender identity: male Do you feel safe at home: Yes Do you feel safe in your relationship?: Yes Exam Narrative Exam Narrative: Physical Examination General: alert, awake, cooperative, resting comfortably, no acute distress HEENT: normocephalic, atraumatic; PERRL, EOM intact, conjunctiva normal; no nasal discharge; moist mucous membranes, oral and pharyngeal mucosa normal, tolerating secretions Neck: supple, trachea midline; full ROM Chest: normal to inspection Respiratory: normal respiratory effort, speaking in full sentences, clear to auscultation, no wheezing, rales or rhonchi Cardiac: regular rate, regular rhythm, S1S2 intact, no murmurs rubs or gallops GI: abdomen soft, non-tender, non-distended; no palpable mass or hepatosplenomegaly Skin: Evidence of early ingrown toenail great toe of left foot, slight induration erythema to medial nail fold no active bleeding no purulent drainage Neuro: AAOx3, normal speech, moving all extremities Psych: Appropriate mood and affect Course Vital Signs Vital signs: Vital Signs Temperature 36.5 C 04/06/22 18:44 Pulse 88 04/06/22 18:44 Respiratory Rate 16 04/06/22 18:44 Blood Pressure 153/84 H 04/06/22 18:44 Pulse Oximetry 95 04/06/22 18:44 Temperature 36.5 C 04/06/22 18:44 Temperature Source Temporal Artery Scan 04/06/22 18:44 Pulse 88 04/06/22 18:44 Respiratory Rate 16 04/06/22 18:44 Respiratory Effort 04/06/22 18:44 Blood Pressure 153/84 H 04/06/22 18:44 Blood Pressure Position Sitting 04/06/22 18:44 Pulse Oximetry 95 04/06/22 18:44 Oxygen Delivery Method Room Air 04/06/22 18:44 Oxygen Flow Rate 0 04/06/22 18:44 Pain Level 8 04/06/22 18:44
[2022-04-06] MEDS: Cephalexin 500 MG CAP PO (19:00)
--- NOTE | 2022-04-06 20:34 | NUR.NOTE ---
Referral to Podiatry for ingrown toenail in one week per Dr. Lofton. put the referral in the senior care manager's box for assistance as I was not able to fax the referral due to technical difficulties with the fax machine.Nursing Note:
== END 2022-04-06 19:26 | disposition home or self-care (01) ==
PROVIDERS: Emergency Provider Emergency Medicine; PCP Family Medicine
DX: L60.0 Ingrowing nail (principal); I10 Essential (primary) hypertension; Z86.711 Personal history of pulmonary embolism
CPT/HCPCS: 99283; 99284

== ENCOUNTER 2022-06-03 13:41 | Emergency (ER) | payer MEDICARE, MEDICAID, SELFPAY ==
[2022-06-03 13:52] VITALS: BP 142/91; PULSE 90; RESP 16; TEMP 37.1; O2SAT 96
--- NOTE | 2022-06-03 14:49 | ED.GENADUL_ITS ---
Discharge Plan Disposition Patient Disposition: Home Condition: Stable Discharge Details Clinical Impression: Corneal abrasion, right, URI (upper respiratory infection) Primary Care Provider: José Miguel Flores ED Provider: Gustabo Iraheta Home Meds and New Rx's Prescriptions: No Action famotidine [Pepcid] 20 mg tablet 20 mg PO DAILY Qty: 90 3RF pantoprazole 40 mg tablet,delayed release (DR/EC) 40 mg PO BID Qty: 180 3RF apixaban 5 mg tablet 5 mg PO BID Qty: 180 3RF sertraline 100 mg tablet 100 mg PO DAILY Qty: 90 3RF risperidone [Risperdal] 0.5 mg tablet 0.5 mg PO BID Qty: 60 11RF hydrocortisone 2.5 % ointment 1 applic TP BID PRN (Reason: neck rash) Qty: 28.35 1RF betamethasone dipropionate 0.05 % ointment 1 applic topical BID Qty: 15 0RF Rx Instructions: apply to infected nailbed (right great toe) 2x daily diclofenac sodium [Voltaren Arthritis Pain] 1 % gel 2 g topical QID PRN (Reason: back pain) Qty: 150 1RF Rx Instructions: fluticasone propionate 50 mcg/actuation spray,suspension See Rx Instructions .ROUTE .COMPLEX Qty: 16 11RF Dose Instruction: USE ONE SPRAY IN EACH NOSTRIL ONCE DAILY Rx Instructions: USE ONE SPRAY IN EACH NOSTRIL ONCE DAILY cetirizine [Zyrtec] 10 mg tablet 10 mg PO DAILY Qty: 90 3RF epinephrine [EpiPen 2-Farrukh] 0.3 mg/0.3 mL auto-injector 0.3 mg IM ONCE Qty: 2 0RF Rx Instructions: as a single dose triamcinolone acetonide 0.1 % cream 1 applic TP BID Qty: 30 1RF Rx Instructions: apply for 10 days or until healed, whichever comes first acetaminophen [Tylenol Extra Strength] 500 mg tablet 1,000 mg PO TID PRN (Reason: pain/fever) Qty: 270 4RF cyclobenzaprine 10 mg tablet 10 mg PO TID PRN (Reason: muscle spasm) Qty: 20 1RF clonazepam 1 mg tablet 1 mg PO BID PRN (Reason: anxiety) Qty: 60 5RF Discharge Instructions Instructions: Corneal Abrasion (ED), Upper Respiratory Infection (ED) Additional Instructions: You have been given antibiotic ointment and you will need to apply half an inch to your right thigh 4 times daily for the next 5 days. It is very important to follow-up with eye care provider for reassessment. If you develop any new or significant worsening of symptoms such as vision loss severe pain or drainage from your eye please return to the emergency department for reassessment. We have placed a referral to [facility] for reassessment preferably in the next 24 to 48 hours. Please call their office for arrangement of follow- up appointment tomorrow morning. You were negative for COVID and for influenza so your respiratory virus is not worrisome at this point and you may continue to take [id number] cough and cold medication as needed or recommended per your primary care provider. If you have any difficulty breathing, fever for greater than 5 days, or other concerns feel free to return to the emergency department. If not improving in the next 7 days please follow-up with your primary care provider or urgent care provider. Referrals: [facility] [Outside] - 2 days (Call the office tomorrow morning for arrangement of follow-up appointment) Discharge Data Discharge Date/Time-TO BE ENTERED AT DEPARTURE: 06/03/22 15:13 Medical Decision Making Patient presenting to the emergency department for chief complaint of right eye injury. Patient states he was working with some plastic when it flew up and struck him in the right eye. Patient denies any other injury or trauma. He does state that he also has started with a cough today but denies other symptoms. Physical exam shows right corneal abrasions mainly to the medial aspect of the eye. No retained foreign body was noted. Fluorescein was used. Patient was started on erythromycin ointment and referral was placed for patient to follow-up with [facility] [place] [place] in the next 24 to 48 hours for reassessment. Rapid antigen COVID and influenza testing were performed and patient was negative. Patient was encouraged to use conservative measures for treatment of viral symptoms. We did update patient's tetanus due to him being unsure of when last tetanus was given. Review of systems was limited due to patient's verbal communication which is very hesitant but patient is otherwise stable. After discussion of diagnosis and plan of care patient has no further needs, questions, or concerns and states clear understanding to return to the emergency department for any worsening symptoms. This documentation was generated using [employer] dictation system, please disregard any oddities of phrase or misspellings. Sign Out No HPI General Mode of arrival: ambulatory . Date/Time Provider Initiated Documentation: 06/03/22 14:03 . Limitations to Documentation: other . Information obtained by: patient and RN notes reviewed . History of Present Ill jaciel 36 year old M presents to the emergency department with the chief complaint of Right eye injury, described as moderate, Quality is described as aching, and is localized to the eyes and right. Patient reports no radiation. Patient started experiencing this day(s) (1) and it has been constant. No relieving factors improve symptom(s), No exacerbating factors reported . Patient did receive the following treatments prior to arrival, none Related Data Home Medications Medication Instructions Recorded Confirmed hydrocortisone 2.5 % topical 1 applic topical BID PRN neck rash 04/04/20 04/16/22 ointment #28.35 grams betamethasone dipropionate 0.05 % 1 applic topical BID #15 grams 10/14/20 04/16/22 topical ointment diclofenac sodium 1 % topical gel 2 g topical QID PRN back pain #150 01/17/21 04/16/22 (Voltaren Arthritis Pain) grams fluticasone propionate 50 See Rx Instructions .Route 08/14/21 04/16/22 mcg/actuation nasal .COMPLEX #16 mL spray,suspension famotidine 20 mg tablet (Pepcid) 20 mg PO DAILY #90 tabs 08/29/21 04/16/22 pantoprazole 40 mg tablet,delayed 40 mg PO BID #180 tabs 08/29/21 04/16/22 release cetirizine 10 mg tablet (Zyrtec) 10 mg PO DAILY #90 tab-caps 09/15/21 04/16/22 apixaban 5 mg tablet 5 mg PO BID #180 tabs 11/25/21 04/16/22 sertraline 100 mg tablet 100 mg PO DAILY #90 tabs 11/25/21 04/16/22 risperidone 0.5 mg tablet 0.5 mg PO BID #60 tabs 12/30/21 04/16/22 (Risperdal) epinephrine 0.3 mg/0.3 mL 0.3 mg (0.3 mL) IM ONCE #2 ea 01/03/22 04/16/22 injection, auto-injector (EpiPen 2-Farrukh) triamcinolone acetonide 0.1 % 1 applic topical BID hand rash #30 01/19/22 04/16/22 topical cream grams acetaminophen 500 mg tablet 1,000 mg PO TID PRN pain/fever 02/18/22 04/16/22 (Tylenol Extra Strength) #270 tabs clonazepam 1 mg tablet 1 mg PO BID PRN anxiety #60 tabs 05/30/22 cyclobenzaprine 10 mg tablet 10 mg PO TID PRN muscle spasm #20 05/30/22 tabs Previous Rx's Medication Instructions Recorded hydrocortisone 2.5 % topical 1 applic topical BID PRN neck rash 04/04/20 ointment #28.35 grams betamethasone dipropionate 0.05 % 1 applic topical BID #15 grams 10/14/20 topical ointment diclofenac sodium 1 % topical gel 2 g topical QID PRN back pain #150 01/17/21 (Voltaren Arthritis Pain) grams fluticasone propionate 50 See Rx Instructions .Route 08/14/21 mcg/actuation nasal .COMPLEX #16 mL spray,suspension famotidine 20 mg tablet (Pepcid) 20 mg PO DAILY #90 tabs 08/29/21 pantoprazole 40 mg tablet,delayed 40 mg PO BID #180 tabs 08/29/21 release cetirizine 10 mg tablet (Zyrtec) 10 mg PO DAILY #90 tab-caps 09/15/21 apixaban 5 mg tablet 5 mg PO BID #180 tabs 11/25/21 sertraline 100 mg tablet 100 mg PO DAILY #90 tabs 11/25/21 risperidone 0.5 mg tablet 0.5 mg PO BID #60 tabs 12/30/21 (Risperdal) epinephrine 0.3 mg/0.3 mL 0.3 mg (0.3 mL) IM ONCE #2 ea 01/03/22 injection, auto-injector (EpiPen 2-Farrukh) triamcinolone acetonide 0.1 % 1 applic topical BID hand rash #30 01/19/22 topical cream grams acetaminophen 500 mg tablet 1,000 mg PO TID PRN pain/fever 02/18/22 (Tylenol Extra Strength) #270 tabs clonazepam 1 mg tablet 1 mg PO BID PRN anxiety #60 tabs 05/30/22 cyclobenzaprine 10 mg tablet 10 mg PO TID PRN muscle spasm #20 05/30/22 tabs Allergies Allergy/AdvReac Type Severity Reaction Status Date / Time cat's claw Allergy Unknown Verified 04/06/22 18:47 neomycin Allergy Unknown Verified 04/06/22 18:47 [From Neosporin ([id number])] polymyxin B Allergy Unknown Verified 04/06/22 18:47 [From Neosporin ([id number])] bacitracin Allergy Verified 04/06/22 18:47 dog dander Allergy Verified 04/06/22 18:47 beer Allergy Severe Anaphylaxsi Uncoded 04/06/22 18:47 s General Stated Complaint: GenMedical CONSTANCE: 3 Review of Systems Constitutional Constitutional: Denies chills, Denies fever(s) and Denies headache(s) Eyes Eyes: Reports as per HPI, Denies eye discharge, Reports irritation, Denies loss of vision, Reports eye pain and Reports photophobia ENT Ears, Nose, Mouth, and Throat: Denies headache(s), Denies nasal congestion, Denies neck pain and Denies sore throat Cardiovascular Cardiovascular: Denies chest pain and Denies dyspnea Respiratory Respiratory: Reports cough and Denies dyspnea Gastrointestinal Gastrointestinal: Denies nausea Musculoskeletal Musculoskeletal: Denies neck pain Integumentary/Breasts Skin/Breast: Denies rash and Denies wounds Neurologic Neurologic: Denies headache(s) and Denies loss of vision PFSH All Active Problems (Updated 06/03/22 @ 15:06 by Gustabo Iraheta NP) Corneal abrasion, right (Acute) URI (upper respiratory infection) (Acute) Eye twitch (Acute) Cellulitis (Acute) Thyroid dysfunction (Acute) Hypokalemia due to excessive gastrointestinal loss of potassium (Acute) 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 Needs to remain on lifelong anti-caog Hereditary spherocytosis (Chronic) s/p splenectomy in 1991. Biliary colic (Acute) COVID-19 (Acute) Elevated serum protein level (Acute) Chest pain (Acute) Hand pain, right (Acute) Pain, rectal (Acute) Abdominal pain (Acute) Left-sided thoracic back pain (Acute) Cholelithiasis (Acute) Vomiting (Acute) Acute epigastric pain (Acute) Leg numbness (Acute) Rash (Acute) Upper abdominal pain (Acute) GERD with esophagitis (Acute) Anxiety (Chronic) extreme and crippling Medical History Acquired hypercoagulable state due to splenectomy Bipolar disorder DVT of axillary vein, acute bilateral (~02/2019) [facility] [place]ophageal foreign body (~05/2018) Esophagitis determined by endoscopy (~05/2018) Essential hypertension Hyperbilirubinemia PAH (pulmonary artery hypertension) 02/28/19 [facility] [place] ECHO (MILD) Pulmonary embolism, bilateral (~02/2019) [facility] [place] PE Dr. Flores [facility] [place] 08/2019; RECURRENT Thrombocytosis after splenectomy Tricuspid regurgitation 02/28/19 [facility] [place] ECHO; MILD TO MOD Surgical History Abnormal findings on esophagogastroduodenoscopy (EGD) H/O hernia repair Unspecified site, repaired x3 H/O superior vena cava filter placement History of splenectomy Priapism (~08/2019) 09/11/19 [facility] [place] S/P PENILE SHUNT (AL-[place]AB) S/P IVC filter (~08/2019) [facility] [place] S/P partial thyroidectomy Social History Smoking/Tobacco Use Status: Never Smoking risk assessment performed?: Yes Alcohol Intake: never Drug use: Never Substance use type: does not use Current gender identity: male Do you feel safe at home: Yes Do you feel safe in your relationship?: Yes Exam Const General: cooperative, no acute distress and not ill appearing Orientation: alert and awake [facility] Head: normal to inspection, normocephalic and atraumatic Ears: hearing grossly normal bilaterally and external ears normal Mouth: moist mucous membranes Eyes General: appearance normal, both eyes and all related structures Periorbital: periorbital findings normal Eyelids: eyelids normal Conjunctivae: conjunctival abnormality right conjunctival injection diffuse Cornea: corneas abnormal on the right fluorescein used and abrasion linear and at the following clock position (3); with no foreign body noted and fluorescein used Direct ophthalmoscopy: photophobia Resp Effort & Inspection: normal respiratory effort, cough Quality of cough: dry and no respiratory distress Auscultation: clear to auscultation bilaterally Cardio Rate: regular rate Rhythm: regular rhythm Heart Sounds: S1 normal and S2 normal Skin General skin exam: no rashes or lesions noted Neuro General: patient alert, patient awake, moves all extremities and no focal motor deficits Psych Appearance: grossly normal Speech and Movement: pressured speech Mood: anxious mood Affect: anxious affect and blunted Attitude: guarded and avoids eye contact Course Vital Signs Vital signs: Vital Signs Temperature 37.1 C 06/03/22 13:52 Pulse 90 06/03/22 13:52 Respiratory Rate 16 06/03/22 13:52 Blood Pressure 142/91 H 06/03/22 13:52 Pulse Oximetry 96 06/03/22 13:52 Temperature 37.1 C 06/03/22 13:52 Temperature Source Temporal Artery Scan 06/03/22 13:52 Pulse 90 06/03/22 13:52 Respiratory Rate 16 06/03/22 13:52 Blood Pressure 142/91 H 06/03/22 13:52 Blood Pressure Position Sitting 06/03/22 13:52 Pulse Oximetry 96 06/03/22 13:52 Oxygen Delivery Method Room Air 06/03/22 13:52 Oxygen Flow Rate 0 06/03/22 13:52 Comment 06/03/22 13:52
[2022-06-03] MEDS: Erythromycin Ophth Oint 3.5 GM TUBE OP (14:52)
[2022-06-03] MEDS: Balanced Salt Solution 15 ML BTL OP (14:52)
--- NOTE | 2022-06-03 15:14 | NUR.NOTE ---
Nursing Note: Tried to go through assessments with patient, patient had a very flat affect and would not answer questions, when patient did speak it was very difficult to understand.
--- NOTE | 2022-06-03 17:21 | NUR.NOTE ---
Nursing Note: referral to cm for [place]
--- NOTE | 2022-06-04 09:52 | PDOC.ERCMACT ---
- If Service Date Differs Date of service: 06/04/22 Time of Service: 09:53 Care Management Activity Note Golden is seen in the ED for a corneal abrasion and an upper respiratory infection. At the request of ED provider, CM coordinates a referral to [facility], [place] to assist Golden in obtaining a follow up appointment for a reassessment of the corneal abrasion. He has Medicare and Medicaid for insurance.
== END 2022-06-03 15:13 | disposition home or self-care (01) ==
PROVIDERS: Emergency Provider Nurse Practitioner Family; PCP Family Medicine
DX: J06.9 Acute upper respiratory infection, unspecified (principal); S05.01XA Injury of conjunctiva and corneal abrasion without foreign body, right eye, initial encounter; F31.9 Bipolar disorder, unspecified; I10 Essential (primary) hypertension; Z23 Encounter for immunization; Z20.822 Contact with and (suspected) exposure to COVID-19; W22.8XXA Striking against or struck by other objects, initial encounter; Y93.89 Activity, other specified; Z86.718 Personal history of other venous thrombosis and embolism
CPT/HCPCS: 90471; 99283; 99284

== ENCOUNTER 2022-08-06 01:19 | Outpatient (CLI) | payer MEDICARE, MEDICAID, SELFPAY ==
--- NOTE | 2022-08-06 08:00 | DI.US_ITS ---
Exam(s) US HERNIA EXAM: US HERNIA CLINICAL HISTORY: pain in rt inguinal region intermittently for one,r10.31,. TECHNIQUE: Ultrasound was performed using standard protocol. COMPARISON: US US ECHOCARDIOGRAM from 11/12/2021 FINDINGS: Dedicated ultrasound examination of right groin-hemiscrotum. No evidence of hernia demonstrated at this level. No obvious mass in the right testicle. No hydroce le. IMPRESSION: No evidence of hernia right groin and right hemiscrotum. DATA REPOSITORY:
== END 2022-08-06 01:39 ==
LOC: DI 01:19
PROVIDERS: PCP Family Medicine; Visit Provider Family Medicine
DX: R10.31 Right lower quadrant pain (principal)
CPT/HCPCS: 76857

== ENCOUNTER 2022-08-25 16:09 | Emergency (ER) | payer MEDICARE, MEDICAID, SELFPAY ==
[2022-08-25 16:17] VITALS: BP 132/86; PULSE 104; RESP 18; TEMP 37.2; O2SAT 97
--- NOTE | 2022-08-25 17:44 | W.ED.GENAD ---
Discharge Plan Disposition Patient Disposition: Home Discharge Details Clinical Impression: Acid reflux Primary Care Provider: José Miguel Flores ED Provider: Idris Keller [place] Meds and New Rx's Prescriptions: Continued famotidine [Pepcid] 20 mg tablet 20 mg PO DAILY Qty: 90 3RF apixaban 5 mg tablet 5 mg PO BID Qty: 180 3RF sertraline 100 mg tablet 100 mg PO DAILY Qty: 90 3RF pantoprazole 40 mg tablet,delayed release (DR/EC) 40 mg PO BID Qty: 180 3RF cetirizine [Zyrtec] 10 mg tablet 10 mg PO DAILY Qty: 90 3RF risperidone [Risperdal] 0.5 mg tablet 0.5 mg PO BID Qty: 60 11RF hydrocortisone 2.5 % ointment 1 applic TP BID PRN (Reason: neck rash) Qty: 28.35 1RF betamethasone dipropionate 0.05 % ointment 1 applic topical BID Qty: 15 0RF Rx Instructions: apply to infected nailbed (right great toe) 2x daily diclofenac sodium [Voltaren Arthritis Pain] 1 % gel 2 g topical QID PRN (Reason: back pain) Qty: 150 1RF Rx Instructions: fluticasone propionate 50 mcg/actuation spray,suspension See Rx Instructions .ROUTE .COMPLEX Qty: 16 11RF Dose Instruction: USE ONE SPRAY IN EACH NOSTRIL ONCE DAILY Rx Instructions: USE ONE SPRAY IN EACH NOSTRIL ONCE DAILY epinephrine [EpiPen 2-Farrukh] 0.3 mg/0.3 mL auto-injector 0.3 mg IM ONCE Qty: 2 0RF Rx Instructions: as a single dose triamcinolone acetonide 0.1 % cream 1 applic TP BID Qty: 30 1RF Rx Instructions: apply for 10 days or until healed, whichever comes first acetaminophen [Tylenol Extra Strength] 500 mg tablet 1,000 mg PO TID PRN (Reason: pain/fever) Qty: 270 4RF cyclobenzaprine 10 mg tablet 10 mg PO TID PRN (Reason: muscle spasm) Qty: 20 1RF clonazepam 1 mg tablet 1 mg PO BID PRN (Reason: anxiety) Qty: 60 5RF doxepin 10 mg capsule 10 mg PO BID Qty: 60 1RF Discharge Instructions Instructions: GERD (Gastroesophageal Reflux Disease) (ED) Additional Instructions: Please read all of the information that accompanies these instructions. You were seen in the emergency department for your symptoms of acid reflux. Your chest x-ray showed no abnormalities in your lungs. Please schedule an appointment with your primary care provider later this week. Please return to the emergency department if if you cannot breathe if you begin getting nauseous and started vomiting and it does not stop or if you have any other concerns. Discharge Data Discharge Date/Time-TO BE ENTERED AT DEPARTURE: 08/25/22 19:40 Medical Decision Making This is an anxious and tachycardic but overall well-appearing 36-year-old male with reported unintentional ingestation of soap for which patient will receive 2 view chest x-ray to assess for any obvious infiltrate. He has clear breath sounds and so I am not concerned for pneumothorax. He denies attempted self-harm so I do not feel that he requires behavioral health consultation. I offered him something for his anxiety but he declined. He denied chest pain so I did not feel he required an ECG. No recent falls to suggest pneumothorax. He did have an episode of diarrhea earlier today but he has moist mucous membranes so I am not concerned for acute dehydration so I do not think that the patient requires placement of an IV for assessment of labs nor IV fluids. He has not recently had any antibiotics to suggest C. difficile infection. Furthermore not he is normothermic in the emergency department. He has not been vomiting to suggest significant intra-abdominal infection. Furthermore he has a soft nontender abdomen so I did not feel he required a CT scan. We will treat nausea with ondansetron. I considered pulmonary embolism however he had no chest pain nor hypoxia. His vitals were significant for tachycardia on arrival but given that he is on apixaban and that his tachycardia resolved I felt that the risk of downstream testing following a D-dimer if positive outweighed the benefits given the extensive number of CTs the patient has had in the past several years. Per chart review, it appears that in the past 4 years patient has had [address] scans. I considered ACS however in the absence of chest pain I felt that ACS is unlikely so I did not obtain an ECG nor troponin. No pain out of proportion to suggest necrotizing soft tissue infection. 08/26 Late charting due to patient care. Patient's chest x-ray returned and was reassuring against any acute cardiopulmonary process. I treated his symptoms of reflux with Mylanta and famotidine.. He did not vomit in the emergency department. Patient's nurse updated patient's sister by phone. I advised PMD follow-up for reassessment later this week. Per my review of the patient's CT scan he does have cholelithiasis so acute cholecystitis is another possibility however given his soft nontender abdomen and his lack of fevers, I did not feel that his presentation represents acute cholecystitis so I did not obtain labs nor an ultrasound. We will proceed with empiric trial of expectant outpatient management. He does have a history of splenectomy however in the absence of fevers not concerned for infection with encapsulated organisms. Chronic conditions affecting the care of the patient: Anxiety, GERD, pulmonary arterial hypertension, cholelithiasis History obtained from an outside historian: Chart review of prior visits Diagnostic interpretations performed by me: [Per my independent interpretation chest x-ray shows:] No obvious infiltrate Medications: Ondansetron, famotidine, and Mylanta Treatment/interventions considered: Consider lab testing but deferred Response to therapies provided: No emesis in the emergency department following ondansetron HPI General Date/Time Provider Initiated Documentation: 08/25/22 17:19. HPI Narrative: This is a 36-year-old male with a history of anxiety and pulmonary hypertension and numerous emergency department visits now in the emergency department with concerns for coughing. Patient reportedly took a shower this evening. He reported that he inadvertently got some soap onto his face. He feels as if he might of swallowed the soap. The soap also caused him to start coughing. He is concerned about his difficulty breathing as result. He reports that he also started having liquid come out of his rectum. He has not recently had any antibiotics. He denies dysuria and frequency. He is not having any pain in his chest. Related Data Home Medications Medication Instructions Recorded Confirmed hydrocortisone 2.5 % topical 1 applic topical BID PRN neck rash 04/04/20 07/22/22 ointment #28.35 grams betamethasone dipropionate 0.05 % 1 applic topical BID #15 grams 10/14/20 07/22/22 topical ointment diclofenac sodium 1 % topical gel 2 g topical QID PRN back pain #150 01/17/21 07/22/22 (Voltaren Arthritis Pain) grams fluticasone propionate 50 See Rx Instructions .Route 08/14/21 07/22/22 mcg/actuation nasal .COMPLEX #16 mL spray,suspension famotidine 20 mg tablet (Pepcid) 20 mg PO DAILY #90 tabs 08/29/21 07/22/22 apixaban 5 mg tablet 5 mg PO BID #180 tabs 11/25/21 07/22/22 sertraline 100 mg tablet 100 mg PO DAILY #90 tabs 11/25/21 07/22/22 risperidone 0.5 mg tablet 0.5 mg PO BID #60 tabs 12/30/21 07/22/22 (Risperdal) epinephrine 0.3 mg/0.3 mL 0.3 mg (0.3 mL) IM ONCE #2 ea 01/03/22 07/22/22 injection, auto-injector (EpiPen 2-Farrukh) triamcinolone acetonide 0.1 % 1 applic topical BID hand rash #30 01/19/22 07/22/22 topical cream grams acetaminophen 500 mg tablet 1,000 mg PO TID PRN pain/fever 02/18/22 07/22/22 (Tylenol Extra Strength) #270 tabs clonazepam 1 mg tablet 1 mg PO BID PRN anxiety #60 tabs 05/30/22 07/22/22 cyclobenzaprine 10 mg tablet 10 mg PO TID PRN muscle spasm #20 05/30/22 07/22/22 tabs cetirizine 10 mg tablet (Zyrtec) 10 mg PO DAILY #90 tab-caps 07/22/22 07/22/22 pantoprazole 40 mg tablet,delayed 40 mg PO BID #180 tabs 07/22/22 07/22/22 release doxepin 10 mg capsule 10 mg PO BID itching #60 caps 08/24/22 Previous Rx's Medication Instructions Recorded hydrocortisone 2.5 % topical 1 applic topical BID PRN neck rash 04/04/20 ointment #28.35 grams betamethasone dipropionate 0.05 % 1 applic topical BID #15 grams 10/14/20 topical ointment diclofenac sodium 1 % topical gel 2 g topical QID PRN back pain #150 01/17/21 (Voltaren Arthritis Pain) grams fluticasone propionate 50 See Rx Instructions .Route 08/14/21 mcg/actuation nasal .COMPLEX #16 mL spray,suspension famotidine 20 mg tablet (Pepcid) 20 mg PO DAILY #90 tabs 08/29/21 apixaban 5 mg tablet 5 mg PO BID #180 tabs 11/25/21 sertraline 100 mg tablet 100 mg PO DAILY #90 tabs 11/25/21 risperidone 0.5 mg tablet 0.5 mg PO BID #60 tabs 12/30/21 (Risperdal) epinephrine 0.3 mg/0.3 mL 0.3 mg (0.3 mL) IM ONCE #2 ea 01/03/22 injection, auto-injector (EpiPen 2-Farrukh) triamcinolone acetonide 0.1 % 1 applic topical BID hand rash #30 01/19/22 topical cream grams acetaminophen 500 mg tablet 1,000 mg PO TID PRN pain/fever 02/18/22 (Tylenol Extra Strength) #270 tabs clonazepam 1 mg tablet 1 mg PO BID PRN anxiety #60 tabs 05/30/22 cyclobenzaprine 10 mg tablet 10 mg PO TID PRN muscle spasm #20 05/30/22 tabs cetirizine 10 mg tablet (Zyrtec) 10 mg PO DAILY #90 tab-caps 07/22/22 pantoprazole 40 mg tablet,delayed 40 mg PO BID #180 tabs 07/22/22 release doxepin 10 mg capsule 10 mg PO BID itching #60 caps 08/24/22 Allergies Allergy/AdvReac Type Severity Reaction Status Date / Time cat's claw Allergy Unknown Verified 04/06/22 18:47 neomycin Allergy Unknown Verified 04/06/22 18:47 [From Neosporin (cum-diw-alpmn)] polymyxin B Allergy Unknown Verified 04/06/22 18:47 [From Neosporin (dol-dey-thzah)] bacitracin Allergy Verified 04/06/22 18:47 dog dander Allergy Verified 04/06/22 18:47 beer Allergy Severe Anaphylaxsi Uncoded 04/06/22 18:47 s General Stated Complaint: GenMedical CONSTANCE: 3 PFSH All Active Problems (Updated 08/25/22 @ 19:07 by Idris Keller MD) Acid reflux (Chronic) Rt inguinal pain (Acute) Eye twitch (Acute) Cellulitis (Acute) Thyroid dysfunction (Acute) Hypokalemia due to excessive gastrointestinal loss of potassium (Acute) 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 Needs to remain on lifelong anti-caog Hereditary spherocytosis (Chronic) s/p splenectomy in 1991. Biliary colic (Acute) COVID-19 (Acute) Elevated serum protein level (Acute) Chest pain (Acute) Hand pain, right (Acute) Pain, rectal (Acute) Abdominal pain (Acute) Left-sided thoracic back pain (Acute) Cholelithiasis (Acute) Vomiting (Acute) Acute epigastric pain (Acute) Leg numbness (Acute) Rash (Acute) Upper abdominal pain (Acute) GERD with esophagitis (Acute) Anxiety (Chronic) extreme and crippling Medical History Acquired hypercoagulable state due to splenectomy Bipolar disorder DVT of axillary vein, acute bilateral (~02/2019) [facility] [place] Esophageal foreign body (~05/2018) Esophagitis determined by endoscopy (~05/2018) Essential hypertension Hyperbilirubinemia PAH (pulmonary artery hypertension) 02/28/19 [facility] [place] ECHO (MILD) Pulmonary embolism, bilateral (~02/2019) [facility] [place]. Flores [facility] [place] 08/2019; RECURRENT Thrombocytosis after splenectomy Tricuspid regurgitation 02/28/19 [facility] [place] ECHO; MILD TO MOD Surgical History Abnormal findings on esophagogastroduodenoscopy (EGD) H/O hernia repair Unspecified site, repaired x3 H/O superior vena cava filter placement History of splenectomy Priapism (~08/2019) 09/11/19 [facility] [place]; S/P PENILE SHUNT (AL-GHORAB) S/P IVC filter (~08/2019) [facility] [place] S/P partial thyroidectomy Social History Smoking/Tobacco Use Status: Never Smoking risk assessment performed?: Yes Alcohol Intake: never Drug use: Never Substance use type: does not use Current gender identity: male Do you feel safe at home: Yes Do you feel safe in your relationship?: Yes Exam Narrative Exam Narrative: General: Disheveled-appearing in no acute distress. Speaking in muted words. [place]. Head: Normocephalic, atraumatic Ear, nose, mouth, throat: Grossly normal inspection. Normal voice, handling secretions normally. Neck: Trachea midline. Cardiovascular: Well-perfused distal extremities. Respiratory: Nonlabored respiration. Mildly tachypneic. Gastrointestinal: Nondistended abdomen. Soft nontender abdomen. No rebound or guarding. Musculoskeletal: No edema. Moving all 4 extremities spontaneously. Skin: Normal for age and race, grossly normal temperature and turgor. No acute rash. Neurologic: Alert and appropriate, no apparent acute deficits. Psychiatric: Flat affect. Course Vital Signs Vital signs: Vital Signs Temperature 37.2 C 08/25/22 16:17 Pulse 104 H 08/25/22 16:17 Respiratory Rate 18 08/25/22 16:17 Blood Pressure 132/86 08/25/22 16:17 Pulse Oximetry 97 08/25/22 16:17 Temperature 37.2 C 08/25/22 16:17 Temperature Source Tympanic 08/25/22 16:17 Pulse 104 H 08/25/22 16:17 Respiratory Rate 18 08/25/22 16:17 Blood Pressure 132/86 08/25/22 16:17 Blood Pressure Position Standing 08/25/22 16:17 Pulse Oximetry 97 08/25/22 16:17 Oxygen Delivery Method Room Air 08/25/22 16:17 Oxygen Flow Rate 0 08/25/22 16:17
--- NOTE | 2022-08-25 17:45 | DI.RAD_ITS ---
Exam(s) XR CHEST 2V PA LATERAL EXAM: XR CHEST 2V PA LATERAL CLINICAL HISTORY: Shortness of breath TECHNIQUE: 2D digital imaging was performed of the chest. Two images were obtained. PA and lateral views were obtained. COMPARISON: CR XR CHEST 2V PA LATERAL from 02/14/2020 CR XR PORTABLE CHEST AP from 07/17/2021 FINDINGS: MEDIASTINUM: Normal. HEART: Normal. PULMONARY VASCULATURE: Normal. LUNGS: Clear. PLEURAL SPACE: No pleural effusion or pneumothorax. BONE:Within normal limits for the patient's age. OTHER FINDINGS:Normal. IMPRESSION: No acute pulmonary findings. DATA REPOSITORY: RADIATION DOSE DELIVERED:
[2022-08-25] MEDS: Ondansetron O.D.T. 4 MG TABEF PO (18:27)
[2022-08-25] MEDS: Mylanta Suspension 30 ML CUP PO (18:34)
[2022-08-25] MEDS: Famotidine 20 MG TAB 40 MG PO (18:34)
--- NOTE | 2022-08-25 18:45 | NUR.NOTE ---
Nursing Note: Report given to Josette CAMEJO
--- NOTE | 2022-08-25 19:01 | DI.VRAD_ITS ---
PROCEDURE INFORMATION: Exam: XR Chest Exam date and time: 08/25/2022 6:32 PM Age: 36 years old Clinical indication: Shortness of breath; Patient HX: SOB TECHNIQUE: Imaging protocol: Radiologic exam of the chest. Views: 2 views. COMPARISON: CR XR PORTABLE CHEST AP 07/17/2021 10:00 AM FINDINGS: Lungs: Unremarkable. No consolidation. Pleural spaces: Unremarkable. No pleural effusion. No pneumothorax. Heart/Mediastinum: Unremarkable. No cardiomegaly. Bones/joints: Unremarkable. IMPRESSION: No acute findings. Dictated and Authenticated by: Isa Gutierrez MD. Ordering:HEVER Steinberg MD
--- NOTE | 2022-08-25 19:25 | NUR.NOTE ---
Addendum entered by Hilda Gordon 08/26/22 08:15: Referral faxed to PCP for anxiety within 1 week. Original Note: would like Golden evaluated by his PCP for anxiety. Requested via Case management list. CLB
[2022-08-25 19:36] VITALS: BP 133/87; PULSE 85; RESP 20; TEMP 37; O2SAT 94
== END 2022-08-25 19:40 | disposition home or self-care (01) ==
PROVIDERS: Emergency Provider Emergency Medicine; PCP Family Medicine
DX: K21.9 Gastro-esophageal reflux disease without esophagitis (principal); R06.02 Shortness of breath; F41.9 Anxiety disorder, unspecified; T55.0X1A Toxic effect of soaps, accidental (unintentional), initial encounter; R11.0 Nausea
CPT/HCPCS: 99283; 99284; 71046

== ENCOUNTER 2022-08-26 19:29 | Emergency (ER) | payer MEDICARE, MEDICAID, SELFPAY ==
[2022-08-26 19:32] VITALS: BP 131/89; PULSE 84; RESP 20; TEMP 37; O2SAT 96
--- NOTE | 2022-08-26 20:04 | ED.GENADUL_ITS ---
Discharge Plan Disposition Patient Disposition: Home Discharge Details Chief Complaint: Nausea/Vomit/Diar Clinical Impression: Nausea & vomiting Primary Care Provider: José Miguel Flores ED Provider: Misbah Pritchett Home Meds and New Rx's Prescriptions: No Action famotidine [Pepcid] 20 mg tablet 20 mg PO DAILY Qty: 90 3RF apixaban 5 mg tablet 5 mg PO BID Qty: 180 3RF sertraline 100 mg tablet 100 mg PO DAILY Qty: 90 3RF pantoprazole 40 mg tablet,delayed release (DR/EC) 40 mg PO BID Qty: 180 3RF cetirizine [Zyrtec] 10 mg tablet 10 mg PO DAILY Qty: 90 3RF risperidone [Risperdal] 0.5 mg tablet 0.5 mg PO BID Qty: 60 11RF hydrocortisone 2.5 % ointment 1 applic TP BID PRN (Reason: neck rash) Qty: 28.35 1RF betamethasone dipropionate 0.05 % ointment 1 applic topical BID Qty: 15 0RF Rx Instructions: apply to infected nailbed (right great toe) 2x daily diclofenac sodium [Voltaren Arthritis Pain] 1 % gel 2 g topical QID PRN (Reason: back pain) Qty: 150 1RF Rx Instructions: fluticasone propionate 50 mcg/actuation spray,suspension See Rx Instructions .ROUTE .COMPLEX Qty: 16 11RF Dose Instruction: USE ONE SPRAY IN EACH NOSTRIL ONCE DAILY Rx Instructions: USE ONE SPRAY IN EACH NOSTRIL ONCE DAILY epinephrine [EpiPen 2-Farrukh] 0.3 mg/0.3 mL auto-injector 0.3 mg IM ONCE Qty: 2 0RF Rx Instructions: as a single dose triamcinolone acetonide 0.1 % cream 1 applic TP BID Qty: 30 1RF Rx Instructions: apply for 10 days or until healed, whichever comes first acetaminophen [Tylenol Extra Strength] 500 mg tablet 1,000 mg PO TID PRN (Reason: pain/fever) Qty: 270 4RF cyclobenzaprine 10 mg tablet 10 mg PO TID PRN (Reason: muscle spasm) Qty: 20 1RF clonazepam 1 mg tablet 1 mg PO BID PRN (Reason: anxiety) Qty: 60 5RF doxepin 10 mg capsule 10 mg PO BID Qty: 60 1RF Discharge Instructions Instructions: Acute Nausea and Vomiting (ED) Additional Instructions: Please follow-up with your primary care physician. Medical Decision Making 36-year-old male presents with 2 days of nausea vomiting and diarrhea, resolving diarrhea, however endorses persistent vomiting multiple episodes of orange emesis over the past day. Patient is afebrile nontoxic no active vomiting abdomen soft nontender nondistended, appears well-hydrated. Quite withdrawn affect. Consider resolving gastroenteritis versus other viral syndrome versus foodborne illness lower suspicion for cholecystitis appendicitis or serious intra-abdominal infection or obstruction. Trial of Zofran. Likely home with close follow-up. 20: 36 resting comfortably no vomiting in department. Will send home with HPI General Date/Time Provider Initiated Documentation: 08/26/22 19:34 . HPI Narrative: 36-year-old male presents with nausea vomiting over the past 2 days, had diarrhea yesterday that is now resolved, vomited about 6 times today orange Related Data Home Medications Medication Instructions Recorded Confirmed hydrocortisone 2.5 % topical 1 applic topical BID PRN neck rash 04/04/20 07/22/22 ointment #28.35 grams betamethasone dipropionate 0.05 % 1 applic topical BID #15 grams 10/14/20 07/22/22 topical ointment diclofenac sodium 1 % topical gel 2 g topical QID PRN back pain #150 01/17/21 07/22/22 (Voltaren Arthritis Pain) grams fluticasone propionate 50 See Rx Instructions .Route 08/14/21 07/22/22 mcg/actuation nasal .COMPLEX #16 mL spray,suspension famotidine 20 mg tablet (Pepcid) 20 mg PO DAILY #90 tabs 08/29/21 07/22/22 apixaban 5 mg tablet 5 mg PO BID #180 tabs 11/25/21 07/22/22 sertraline 100 mg tablet 100 mg PO DAILY #90 tabs 11/25/21 07/22/22 risperidone 0.5 mg tablet 0.5 mg PO BID #60 tabs 12/30/21 07/22/22 (Risperdal) epinephrine 0.3 mg/0.3 mL 0.3 mg (0.3 mL) IM ONCE #2 ea 01/03/22 07/22/22 injection, auto-injector (EpiPen 2-Farrukh) triamcinolone acetonide 0.1 % 1 applic topical BID hand rash #30 01/19/22 07/22/22 topical cream grams acetaminophen 500 mg tablet 1,000 mg PO TID PRN pain/fever 02/18/22 07/22/22 (Tylenol Extra Strength) #270 tabs clonazepam 1 mg tablet 1 mg PO BID PRN anxiety #60 tabs 05/30/22 07/22/22 cyclobenzaprine 10 mg tablet 10 mg PO TID PRN muscle spasm #20 05/30/22 07/22/22 tabs cetirizine 10 mg tablet (Zyrtec) 10 mg PO DAILY #90 tab-caps 07/22/22 07/22/22 pantoprazole 40 mg tablet,delayed 40 mg PO BID #180 tabs 07/22/22 07/22/22 release doxepin 10 mg capsule 10 mg PO BID itching #60 caps 08/24/22 Previous Rx's Medication Instructions Recorded hydrocortisone 2.5 % topical 1 applic topical BID PRN neck rash 04/04/20 ointment #28.35 grams betamethasone dipropionate 0.05 % 1 applic topical BID #15 grams 10/14/20 topical ointment diclofenac sodium 1 % topical gel 2 g topical QID PRN back pain #150 01/17/21 (Voltaren Arthritis Pain) grams fluticasone propionate 50 See Rx Instructions .Route 08/14/21 mcg/actuation nasal .COMPLEX #16 mL spray,suspension famotidine 20 mg tablet (Pepcid) 20 mg PO DAILY #90 tabs 08/29/21 apixaban 5 mg tablet 5 mg PO BID #180 tabs 11/25/21 sertraline 100 mg tablet 100 mg PO DAILY #90 tabs 11/25/21 risperidone 0.5 mg tablet 0.5 mg PO BID #60 tabs 12/30/21 (Risperdal) epinephrine 0.3 mg/0.3 mL 0.3 mg (0.3 mL) IM ONCE #2 ea 01/03/22 injection, auto-injector (EpiPen 2-Farrukh) triamcinolone acetonide 0.1 % 1 applic topical BID hand rash #30 01/19/22 topical cream grams acetaminophen 500 mg tablet 1,000 mg PO TID PRN pain/fever 08/24/22 (Tylenol Extra Strength) #270 tabs clonazepam 1 mg tablet 1 mg PO BID PRN anxiety #60 tabs 05/30/22 cyclobenzaprine 10 mg tablet 10 mg PO TID PRN muscle spasm #20 05/30/22 tabs cetirizine 10 mg tablet (Zyrtec) 10 mg PO DAILY #90 tab-caps 07/22/22 pantoprazole 40 mg tablet,delayed 40 mg PO BID #180 tabs 07/22/22 release doxepin 10 mg capsule 10 mg PO BID itching #60 caps 08/24/22 Allergies Allergy/AdvReac Type Severity Reaction Status Date / Time cat's claw Allergy Unknown Verified 04/06/22 18:47 neomycin Allergy Unknown Verified 04/06/22 18:47 [From Neosporin ([id number])] polymyxin B Allergy Unknown Verified 04/06/22 18:47 [From Neosporin ([id number])] bacitracin Allergy Verified 04/06/22 18:47 dog dander Allergy Verified 04/06/22 18:47 beer Allergy Severe Anaphylaxsi Uncoded 04/06/22 18:47 s General Stated Complaint: Nausea/Vomit/Diar CONSTANCE: 3 Review of Systems Narrative: Review of Systems Constitutional: negative Eyes: negative ENT: negative Cardiovascular: negative Respiratory: negative Gastrointestinal: Nausea vomiting Musculoskeletal: negative Skin: negative Neurologic: negative Psych: negative PFSH All Active Problems (Updated 08/26/22 @ 20:37 by Misbah Pritchett MD) Acid reflux (Chronic) Nausea & vomiting (Acute) Rt inguinal pain (Acute) Eye twitch (Acute) Cellulitis (Acute) Thyroid dysfunction (Acute) Hypokalemia due to excessive gastrointestinal loss of potassium (Acute) 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 Needs to remain on lifelong anti-caog Hereditary spherocytosis (Chronic) s/p splenectomy in 1991. Biliary colic (Acute) COVID-19 (Acute) Elevated serum protein level (Acute) Chest pain (Acute) Hand pain, right (Acute) Pain, rectal (Acute) Abdominal pain (Acute) Left-sided thoracic back pain (Acute) Cholelithiasis (Acute) Vomiting (Acute) Acute epigastric pain (Acute) Leg numbness (Acute) Rash (Acute) Upper abdominal pain (Acute) GERD with esophagitis (Acute) Anxiety (Chronic) extreme and crippling Medical History Acquired hypercoagulable state due to splenectomy Bipolar disorder DVT of axillary vein, acute bilateral (~02/2019) [facility] Esophageal foreign body (~05/2018) Esophagitis determined by endoscopy (~05/2018) Essential hypertension Hyperbilirubinemia PAH (pulmonary artery hypertension) 02/28/19 [facility] ECHO (MILD) Pulmonary embolism, bilateral (~02/2019) [facility] Dr. Flores [facility] 08/2019; RECURRENT Thrombocytosis after splenectomy Tricuspid regurgitation 02/28/19 [facility] ECHO; MILD TO MOD Surgical History Abnormal findings on esophagogastroduodenoscopy (EGD) H/O hernia repair Unspecified site, repaired x3 H/O superior vena cava filter placement History of splenectomy Priapism (~08/2019) 09/11/19 [facility]; S/P PENILE SHUNT (AL-GHORAB) S/P IVC filter (~08/2019) [facility] S/P partial thyroidectomy Social History Smoking/Tobacco Use Status: Never Smoking risk assessment performed?: Yes Alcohol Intake: never Drug use: Never Substance use type: does not use Current gender identity: male Do you feel safe at home: Yes Do you feel safe in your relationship?: Yes Exam Narrative Exam Narrative: Physical Examination General: alert, awake HEENT: normocephalic, atraumatic; PERRL, EOM intact, conjunctiva normal; no nasal discharge; moist mucous membranes, oral and pharyngeal mucosa normal, tolerating secretions Neck: supple, trachea midline; full ROM Chest: normal to inspection Respiratory: normal respiratory effort, speaking in full sentences, clear to auscultation, no wheezing, rales or rhonchi Cardiac: regular rate, regular rhythm, S1S2 intact, no murmurs rubs or gallops GI: abdomen soft, non-tender, non-distended; no palpable mass or hepatosplenomegaly Skin: no lesions, rashes or trauma appreciated Neuro: AAOx3, normal speech, moving all extremities Psych: Withdrawn quiet affect Course Vital Signs Vital signs: Vital Signs Temperature 37.0 C 08/26/22 19:32 Pulse 84 08/26/22 19:32 Respiratory Rate 20 08/26/22 19:32 Blood Pressure 131/89 08/26/22 19:32 Pulse Oximetry 96 08/26/22 19:32 Temperature 37.0 C 08/26/22 19:32 Temperature Source Tympanic 08/26/22 19:32 Pulse 84 08/26/22 19:32 Respiratory Rate 20 08/26/22 19:32 Blood Pressure 131/89 08/26/22 19:32 Blood Pressure Position Sitting 08/26/22 19:32 Pulse Oximetry 96 08/26/22 19:32 Oxygen Delivery Method Room Air 08/26/22 19:32 Oxygen Flow Rate 0 08/26/22 19:32 Pain Level 6 08/26/22 19:32
[2022-08-26] MEDS: Ondansetron O.D.T. 4 MG TABEF SL (20:20)
[2022-08-26] MEDS: Ondansetron O.D.T. 4 MG TABEF, 3 TABS/BTL PO (20:42)
--- NOTE | 2022-08-27 10:21 | NUR.NOTE ---
Nursing Note: [facility] ED called pt there at this time. Requesting any studies done, any medications given? ED provider note faxed to the ED.
== END 2022-08-26 20:42 | disposition home or self-care (01) ==
PROVIDERS: Emergency Provider Emergency Medicine; PCP Family Medicine
DX: R11.2 Nausea with vomiting, unspecified (principal)
CPT/HCPCS: 99283

== ENCOUNTER 2022-08-28 20:24 | Inpatient (IN) | payer MEDICARE, MEDICAID, SELFPAY ==
[2022-08-28 20:33] VITALS: BP 145/79; PULSE 78; RESP 24; TEMP 37.1; O2SAT 97
--- NOTE | 2022-08-28 21:30 | DI.CT_ITS ---
Exam(s) CT ABDOMEN PELVIS W EXAM: CT ABDOMEN PELVIS W CLINICAL HISTORY: epigastric/LUQ pain. TECHNIQUE: Imaging Protocol: Axial computed tomography images with coronal and sagittal reformatted images were created and reviewed CONTRAST MATERIAL: Intravenous: Omnipaque-350 100cc Oral: None COMPARISON: CT CT ABDOMEN PELVIS W from 02/15/2022 FINDINGS: VISUALIZED LUNG BASES: No nodules nor pleural effusions evident. ABDOMEN: There is no ascites. LIVER: There are no focal hepatic lesions evident. No dilated intrahepatic ducts. GALLBLADDER/BILIARY: There are multiple gallstones in the gallbladder lumen. The gallbladder is not distended nor edematous. There are no stones in the CBD. CBD is not dilated. PANCREAS: No evidence of pancreatic mass nor dilatation of the pancreatic duct. Pancreatic tail is a gain noted be short and the spleen is absent. Small round nodule in the mesentery may be small splen ule. There are no surgical clips. Question prior surgery despite absence of clips. SPLEEN: Absent . ADRENALS: There are no significant adrenal masses. KIDNEYS:No cysts evident. No solid renal masses. No calculi nor hydronephrosis.. ABDOMINAL AORTA: Abdominal aorta is not enlarged. IVC: IVC filter again noted and remains in satisfactory position. No intraluminal filling defects in the IVC and iliac veins. LYMPH NODES:There is no retroperitoneal nor paraaortic adenopathy. ABDOMINAL WALL: No evidence of significant anterior abdominal wall nor inguinal hernia. GI: No evidence of bowel obstruction. PELVIS: GI: No evidence of appendicitis.No evidence of sigmoid diverticulitis. LYMPH NODES: There is no intrapelvic nor inguinal adenopathy. REPRODUCTIVE: Prostate not enlarged. Seminal vesicles unremarkable. URINARY BLADDER: Diffuse uniform thickening of the urinary bladder. No gas in the bladder wall. No obvious distinct mass nor calculi in the lumen. OSSEOUS: No fractures and no significant osseous lesions. IMPRESSION: 1. 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 There are no surgical clips in this layo on. Either developmental or postsurgical. 2. IVC filter in satisfactory position. No obvious intraluminal thrombi in the IVC. 3. There is diffuse uniform thickening of the urinary bladder wall. Probably related to cystitis. T he bladder is not distended. No gas in the bladder wall. No calculi in the bladder lumen nor distin ct focal bladder wall mass. Prostate size normal. RADIATION DOSE DELIVERED: 1,513.09mGy.cm Total DLP DATA REPOSITORY: All CT scans at this facility are submitted to the National Radiology Data Registry (NRDR) Dose Index Registry (DIR) with the [employer] ([employer]). RADIATION OPTIMIZATION: All CT scans at this facility use at least one of these dose optimization te chniques: automated exposure control; mA and/or kV adjustment per patient size (includes targeted exa ms where dose is matched to clinical indication); or iterative reconstruction.
--- NOTE | 2022-08-28 21:31 | W.ED.GENAD ---
Discharge Plan Disposition Patient Disposition: Admit to [facility] Condition: Stable Discharge Details Chief Complaint: Nausea/Vomit/Diar Clinical Impression: Upper abdominal pain, Elevated bilirubin, Nausea & vomiting, Hypokalemia Primary Care Provider: José Miguel Flores ED Provider: Lyla Vinson [place] Meds and New Rx's Prescriptions: No Action famotidine [Pepcid] 20 mg tablet 20 mg PO DAILY Qty: 90 3RF apixaban 5 mg tablet 5 mg PO BID Qty: 180 3RF sertraline 100 mg tablet 100 mg PO DAILY Qty: 90 3RF pantoprazole 40 mg tablet,delayed release (DR/EC) 40 mg PO BID Qty: 180 3RF cetirizine [Zyrtec] 10 mg tablet 10 mg PO DAILY Qty: 90 3RF risperidone [Risperdal] 0.5 mg tablet 0.5 mg PO BID Qty: 60 11RF hydrocortisone 2.5 % ointment 1 applic TP BID PRN (Reason: neck rash) Qty: 28.35 1RF betamethasone dipropionate 0.05 % ointment 1 applic topical BID Qty: 15 0RF Rx Instructions: apply to infected nailbed (right great toe) 2x daily diclofenac sodium [Voltaren Arthritis Pain] 1 % gel 2 g topical QID PRN (Reason: back pain) Qty: 150 1RF Rx Instructions: fluticasone propionate 50 mcg/actuation spray,suspension See Rx Instructions .ROUTE .COMPLEX Qty: 16 11RF Dose Instruction: USE ONE SPRAY IN EACH NOSTRIL ONCE DAILY Rx Instructions: USE ONE SPRAY IN EACH NOSTRIL ONCE DAILY epinephrine [EpiPen 2-Farrukh] 0.3 mg/0.3 mL auto-injector 0.3 mg IM ONCE Qty: 2 0RF Rx Instructions: as a single dose triamcinolone acetonide 0.1 % cream 1 applic TP BID Qty: 30 1RF Rx Instructions: apply for 10 days or until healed, whichever comes first acetaminophen [Tylenol Extra Strength] 500 mg tablet 1,000 mg PO TID PRN (Reason: pain/fever) Qty: 270 4RF cyclobenzaprine 10 mg tablet 10 mg PO TID PRN (Reason: muscle spasm) Qty: 20 1RF clonazepam 1 mg tablet 1 mg PO BID PRN (Reason: anxiety) Qty: 60 5RF doxepin 10 mg capsule 10 mg PO BID Qty: 60 1RF Medical Decision Making Patient is a pleasant 36-year-old male, well-known to myself in the department, with history of significant anxiety, presenting today with chief complaint of abdominal discomfort. States the pain has progressively been increasing. Started in the left upper quadrant and now has been spreading out. He denies any alcohol intake. States that he has had some nausea but no vomiting. Has had some light-colored soft stools which she describes as bile. States that he has had increased acid reflux. Denies any previous abdominal surgeries. No fevers or chills. No recent change in medications. States that he is urinating less than typical. However, has had very small amounts of fluid in over the past few days. On exam, patient appears uncomfortable. He is holding his stomach. Hemodynamically stable. Lungs are clear. Normal cardiac auscultation. Diffuse abdominal discomfort with out peritoneal findings or focal findings. Secondary to his anxiety, my exam is slightly limited although he tries to cooperative as best as possible. No CVA tendernes differential this time is quite broad. Concern for potential increased acid reflux. Considered for possible Ulcer. Consider pancreatitis. Also considered biliary dysfunction. This also may be associated with gastritis or gastroenteritis. No recent antibiotics. Will give Zofran, fluids, Protonix. Plan to move forward with CT and laboratory evaluation. Labs reviewed. Patient is leukocytosis with a white count of 13. Lactate within normal limits. His potassium is low at 3.0, will replenish this. T. bili is elevated at 4.3, he typically is elevated but not to this degree. AST elevated at 62, ALT and alk phos within normal limits. Lipase within normal limits. Urinalysis without significant abnormality. Imaging reviewed by radiologis: FINDINGS: Liver: Hepatic steatosis. Gallbladder and bile ducts: Cholelithiasis. Pancreas: Normal.? Spleen: Spleen is surgically absent. Adrenal glands: Normal. No mass. Kidneys and ureters: Normal. Stomach and bowel: Normal. Appendix: Appendix normal. Intraperitoneal space: Unremarkable. No free air. No significant fluid collection. Vasculature: Inferior vena cava filter present, with filter tip and legs extending beyond the wall of the IVC. Phleboliths within the pelvis. Lymph nodes: Unremarkable. No enlarged lymph nodes. Urinary bladder: Mild urinary bladder wall thickening, possibly secondary to partially decompressed state, although cystitis is a consideration. Reproductive: Unremarkable as visualized. Bones/joints: Multilevel thoracolumbar spine degenerative disc space narrowing and osteophyte formation. Soft tissues: Normal. IMPRESSION: Mild urinary bladder wall thickening, possibly secondary to partially decompressed state, although cystitis is a consideration. Pain is not over lower abdomen, urine is clean. No indication of cystitis at this time clinically. Concerned about cholelthiasis however. Will consult with general surgery. Consulted with Dr. Geiger with general surgery. He was able to review the imaging. He advised that this is not consistent with acute cholecystitis, nor is the pattern of transaminitis. However, he is concerned that the patient does need an MRCP and recommended admission for continued hydration and pain management. Hoping the MRCP will be able to be obtained. He did note that patient was here for similar in October of last year. At that time, MRCP had been recommended and has not yet been obtained. Also recommended hepatitis panel. Patient is increased on the patient. We will give IV Dilaudid and IV acetaminophen. Patient became c Quite anxious and will give a small amount of Ativan. onsulted with hospitalist regarding admission for pain management and fluids. He agrees to observation. MRCP will not be able to be obtained until at least Wednesday. However, as this has been an ongoing issue for the patient I do not see emergent need for transfer at this time. HPI General Date/Time Provider Initiated Documentation: 08/28/22 21:31. Limitations to Documentation: no limitations. Information obtained by: patient, RN notes reviewed and old records reviewed. History of Present Illness 36 year old M presents to the emergency department with the chief complaint of abdominal pain, nausea, dry heaves, soft stools, described as severe and similar to prior episodes, with intensity rated at 10. Quality is described as stabbing, and is localized to the abdomen. Patient reports no radiation. Patient started experiencing this day(s) and it has been constant. No relieving factors improve symptom(s), Eating worsens symptoms (even drinking water will increase pain) . Patient notes loss of appetite, malaise and nausea/vomiting; denies chest pain, fever/chills, rash and shortness of breath. Patient did receive the following treatments prior to arrival, none Related Data Home Medications Medication Instructions Recorded Confirmed hydrocortisone 2.5 % topical 1 applic topical BID PRN neck rash 04/04/20 07/22/22 ointment #28.35 grams betamethasone dipropionate 0.05 % 1 applic topical BID #15 grams 10/14/20 07/22/22 topical ointment diclofenac sodium 1 % topical gel 2 g topical QID PRN back pain #150 01/17/21 07/22/22 (Voltaren Arthritis Pain) grams fluticasone propionate 50 See Rx Instructions .Route 08/14/21 07/22/22 mcg/actuation nasal .COMPLEX #16 mL spray,suspension famotidine 20 mg tablet (Pepcid) 20 mg PO DAILY #90 tabs 08/29/21 07/22/22 apixaban 5 mg tablet 5 mg PO BID #180 tabs 11/25/21 07/22/22 sertraline 100 mg tablet 100 mg PO DAILY #90 tabs 11/25/21 07/22/22 risperidone 0.5 mg tablet 0.5 mg PO BID #60 tabs 12/30/21 07/22/22 (Risperdal) epinephrine 0.3 mg/0.3 mL 0.3 mg (0.3 mL) IM ONCE #2 ea 01/03/22 07/22/22 injection, auto-injector (EpiPen 2-Farrukh) triamcinolone acetonide 0.1 % 1 applic topical BID hand rash #30 01/19/22 07/22/22 topical cream grams acetaminophen 500 mg tablet 1,000 mg PO TID PRN pain/fever 02/18/22 07/22/22 (Tylenol Extra Strength) #270 tabs clonazepam 1 mg tablet 1 mg PO BID PRN anxiety #60 tabs 05/30/22 07/22/22 cyclobenzaprine 10 mg tablet 10 mg PO TID PRN muscle spasm #20 05/30/22 07/22/22 tabs cetirizine 10 mg tablet (Zyrtec) 10 mg PO DAILY #90 tab-caps 07/22/22 07/22/22 pantoprazole 40 mg tablet,delayed 40 mg PO BID #180 tabs 07/22/22 07/22/22 release doxepin 10 mg capsule 10 mg PO BID itching #60 caps 08/24/22 Previous Rx's Medication Instructions Recorded hydrocortisone 2.5 % topical 1 applic topical BID PRN neck rash 04/04/20 ointment #28.35 grams betamethasone dipropionate 0.05 % 1 applic topical BID #15 grams 10/14/20 topical ointment diclofenac sodium 1 % topical gel 2 g topical QID PRN back pain #150 01/17/21 (Voltaren Arthritis Pain) grams fluticasone propionate 50 See Rx Instructions .Route 08/14/21 mcg/actuation nasal .COMPLEX #16 mL spray,suspension famotidine 20 mg tablet (Pepcid) 20 mg PO DAILY #90 tabs 08/29/21 apixaban 5 mg tablet 5 mg PO BID #180 tabs 11/25/21 sertraline 100 mg tablet 100 mg PO DAILY #90 tabs 11/25/21 risperidone 0.5 mg tablet 0.5 mg PO BID #60 tabs 12/30/21 (Risperdal) epinephrine 0.3 mg/0.3 mL 0.3 mg (0.3 mL) IM ONCE #2 ea 01/03/22 injection, auto-injector (EpiPen 2-Farrukh) triamcinolone acetonide 0.1 % 1 applic topical BID hand rash #30 01/19/22 topical cream grams acetaminophen 500 mg tablet 1,000 mg PO TID PRN pain/fever 02/18/22 (Tylenol Extra Strength) #270 tabs clonazepam 1 mg tablet 1 mg PO BID PRN anxiety #60 tabs 05/30/22 cyclobenzaprine 10 mg tablet 10 mg PO TID PRN muscle spasm #20 05/30/22 tabs cetirizine 10 mg tablet (Zyrtec) 10 mg PO DAILY #90 tab-caps 07/22/22 pantoprazole 40 mg tablet,delayed 40 mg PO BID #180 tabs 07/22/22 release doxepin 10 mg capsule 10 mg PO BID itching #60 caps 08/24/22 Allergies Allergy/AdvReac Type Severity Reaction Status Date / Time cat's claw Allergy Unknown Verified 04/06/22 18:47 neomycin Allergy Unknown Verified 04/06/22 18:47 [From Neosporin ([id number])] polymyxin B Allergy Unknown Verified 04/06/22 18:47 [From Neosporin ([id number])] bacitracin Allergy Verified 04/06/22 18:47 dog dander Allergy Verified 04/06/22 18:47 beer Allergy Severe Anaphylaxsi Uncoded 04/06/22 18:47 s General Stated Complaint: Nausea/Vomit/Diar CONSTANCE: 3 Review of Systems Constitutional Constitutional: Reports as per HPI, Denies chills, Denies fever(s) and Denies headache(s) ENT Ears, Nose, Mouth, and Throat: Denies headache(s) Cardiovascular Cardiovascular: Reports as per HPI, Denies chest pain and Denies dyspnea Respiratory Respiratory: Reports as per HPI, Denies cough and Denies dyspnea Gastrointestinal Gastrointestinal: Reports as per HPI Genitourinary Genitourinary: Denies system reviewed and no additional complaints, except as documented (patient denies any change in urinary habits) Musculoskeletal Musculoskeletal: Reports as per HPI and Denies back pain Integumentary/Breasts Skin/Breast: Reports as per HPI and Denies rash Neurologic Neurologic: Reports as per HPI and Denies headache(s) PFSH All Active Problems (Updated 08/29/22 @ 00:45 by JROGE Vivas) Acid reflux (Chronic) Nausea & vomiting (Acute) Hypokalemia (Acute) Rt inguinal pain (Acute) Eye twitch (Acute) Cellulitis (Acute) Thyroid dysfunction (Acute) Hypokalemia due to excessive gastrointestinal loss of potassium (Acute) 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 Needs to remain on lifelong anti-caog Hereditary spherocytosis (Chronic) s/p splenectomy in 1991. Biliary colic (Acute) COVID-19 (Acute) Elevated serum protein level (Acute) Chest pain (Acute) Hand pain, right (Acute) Pain, rectal (Acute) Abdominal pain (Acute) Left-sided thoracic back pain (Acute) Cholelithiasis (Acute) Vomiting (Acute) Acute epigastric pain (Acute) Leg numbness (Acute) Rash (Acute) Upper abdominal pain (Acute) GERD with esophagitis (Acute) Anxiety (Chronic) extreme and crippling Medical History Acquired hypercoagulable state due to splenectomy Bipolar disorder DVT of axillary vein, acute bilateral (~02/2019) [facility] Esophageal foreign body (~05/2018) Esophagitis determined by endoscopy (~05/2018) Essential hypertension Hyperbilirubinemia PAH (pulmonary artery hypertension) 02/28/19 [facility] ECHO (MILD) Pulmonary embolism, bilateral (~02/2019) [facility] Dr. 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 Tricuspid regurgitation 02/28/19 [facility] ECHO; MILD TO MOD Surgical History Abnormal findings on esophagogastroduodenoscopy (EGD) H/O hernia repair Unspecified site, repaired x3 H/O superior vena cava filter placement History of splenectomy Priapism (~08/2019) 09/11/19 [facility]; S/P PENILE SHUNT (AL-GHORAB) S/P IVC filter (~08/2019) [facility] S/P partial thyroidectomy Social History Smoking/Tobacco Use Status: Never Smoking risk assessment performed?: Yes Alcohol Intake: never Drug use: Never Substance use type: does not use Current gender identity: male Do you feel safe at home: Yes Do you feel safe in your relationship?: Yes Exam Const General: cooperative, healthy appearing, uncomfortable, no acute distress, well developed and anxious Nutritional Appearance: well nourished and overweight Orientation: alert and awake [facility] Mouth: mucous membranes dry (appears dry) Resp Effort & Inspection: normal respiratory effort, able to speak in complete sentences and no respiratory distress Auscultation: clear to auscultation bilaterally, no rales, no rhonchi and no wheezes Cardio Rate: regular rate Rhythm: regular rhythm Heart Sounds: S1 normal and S2 normal GI Inspection: normal to inspection Palpation: soft, no hepatosplenomegaly, no guarding, no masses, not rigid and tender in the epigastrum, in the LUQ and in the RUQ; with no rebound tenderness Back/Spine/Pelvis Back: no CVA tenderness Skin General skin exam: no rashes or lesions noted Trauma: no lacerations or abrasions Neuro General: patient alert and patient awake Cognition: normal cognition Speech: speech normal Gait: normal gait Course Vital Signs Vital signs: Vital Signs Temperature 37.1 C 08/28/22 20:33 Pulse 78 08/28/22 20:33 Respiratory Rate 24 08/28/22 20:33 Blood Pressure 145/79 H 08/28/22 20:33 Pulse Oximetry 97 08/28/22 20:33 Temperature 37.1 C 08/28/22 20:33 Temperature Source Oral 08/28/22 20:33 Pulse 78 08/28/22 20:33 Respiratory Rate 24 08/28/22 20:33 Blood Pressure 145/79 H 08/28/22 20:33 Blood Pressure Position Sitting 08/28/22 20:33 Pulse Oximetry 97 08/28/22 20:33 Oxygen Delivery Method Room Air 08/28/22 20:33 Oxygen Flow Rate 0 08/28/22 20:33
[2022-08-28 21:47] LABS: Abs Immature Grans 0.03 10^3/uL (0.0-0.06); Absolute Eosinophil Count 0.19 10^3/uL (0.0-0.7); Absolute Lymphocyte Count 5.13 10^3/uL (1.2-3.4); Absolute Monocyte Count 1.42 10^3/uL (0.1-0.8); Basophils % 0.4; Eosinophils % 1.4; HCT 43.4 % (40.0-50.0); HGB 15.1 g/dL (13.5-17.5); Immature Grans % 0.2; Lymphocytes % 37.1; MCH 30.6 pg (27.0-33.0); MCHC 34.8 % (32.0-36.0); MCV 88 fL (80-95); MPV 10.5 fL (8.0-11.0); Monocytes % 10.3; Neutrophils % 50.6; Platelet Count 475 10^3/uL (130-400); RBC 4.93 10^6/uL (4.36-5.78); RDW 14.5 % (11.8-14.1); RDW-SD 46.7 fL; WBC 13.82 10^3/uL (4.4-10.8)
[2022-08-28 21:50] LABS: Lactate 0.8 mmol/L (0.6-1.4)
[2022-08-28] MEDS: Lactated Ringers 1,000 ML 1000 ML IV (21:57)
[2022-08-28 21:58] LABS: Absolute Basophil Count 0.06 10^3/uL (0.0-0.2); Absolute Neutrophil Count 6.99 10^3/uL (1.2-6.7); Diff Comment Agrees w/ Instrument
[2022-08-28 21:59] LABS: RBC Morphology Normal
[2022-08-28] MEDS: Pantoprazole 40 MG VIAL IVP (22:00)
[2022-08-28 22:01] LABS: ALT 40 U/L (16-63); AST 62 U/L (15-37); Albumin 4.4 g/dL (3.4-5.0); Alkaline Phosphatase 74 U/L (46-116); Anion Gap 9.8 mmol/L (3-11); BUN 11 mg/dL (7-18); Bilirubin, Total 4.3 mg/dL (0.2-1.0); CO2 27.2 mmol/L (21.0-32.0); CREATININE 1.2 mg/dL (0.70-1.30); Calcium 9.4 mg/dL (8.5-10.1); Chloride 96 mmol/L (98-107); Estimated GFR 79.88 (mL/min/1.73m2); Glucose 87 mg/dL (74-106); Lipase 66 U/L (16-77); Magnesium 1.8 mg/dL (1.8-2.4); Sodium 133 mmol/L (136-145); Total Protein 8.3 g/dL (6.4-8.2)
[2022-08-28] MEDS: Ondansetron 4 MG/2 ML VIAL IVP (22:04)
[2022-08-28] MEDS: Omnipaque 350 MG/ML 100 ML BTL IJ (22:27)
[2022-08-28] MEDS: Normal Saline - Diluent 50 ML VIAL IJ (22:28)
--- NOTE | 2022-08-28 22:52 | DI.VRAD_ITS ---
PROCEDURE INFORMATION: Exam: CT Abdomen And Pelvis With Contrast Exam date and time: 08/28/2022 10:20 PM Age: 36 years old Clinical indication: Abdominal pain; Epigastric; Prior surgery; Surgery date: 6+ months; Surgery type: Splenectomy, inguinal hernia repair, vena cava filter; Additional info: Epigastric pain TECHNIQUE: Imaging protocol: Computed tomography of the abdomen and pelvis with contrast. Radiation optimization: All CT scans at this facility use at least one of these dose optimization techniques: automated exposure control; mA and/or kV adjustment per patient size (includes targeted exams where dose is matched to clinical indication); or iterative reconstruction. Contrast material: OMNI 350; Contrast volume: 100 ml; Contrast route: INTRAVENOUS (IV); COMPARISON: CT ABDOMEN PELVIS W 02/15/2022 1:10 AM FINDINGS: Liver: Hepatic steatosis. Gallbladder and bile ducts: Cholelithiasis. Pancreas: Normal. Spleen: Spleen is surgically absent. Adrenal glands: Normal. No mass. Kidneys and ureters: Normal. Stomach and bowel: Normal. Appendix: Appendix normal. Intraperitoneal space: Unremarkable. No free air. No significant fluid collection. Vasculature: Inferior vena cava filter present, with filter tip and legs extending beyond the wall of the IVC. Phleboliths within the pelvis. Lymph nodes: Unremarkable. No enlarged lymph nodes. Urinary bladder: Mild urinary bladder wall thickening, possibly secondary to partially decompressed state, although cystitis is a consideration. Reproductive: Unremarkable as visualized. Bones/joints: Multilevel thoracolumbar spine degenerative disc space narrowing and osteophyte formation. Soft tissues: Normal. IMPRESSION: Mild urinary bladder wall thickening, possibly secondary to partially decompressed state, although cystitis is a consideration. Dictated and Authenticated by: Antwon Paulson MD. Ordering:JUNIOR Arita MD
[2022-08-28 23:06] LABS: Bilirubin Negative (Negative); Blood Negative (Negative); Clarity Clear (Clear); Glucose Negative (Negative); Ketones Negative (Negative); Leukocyte Esterase Negative (Negative); Nitrite Negative (Negative); Urobilinogen 0.2 mg/dL (Up to 0.2); pH 6.5 (5-8)
[2022-08-28] MEDS: Mylanta Suspension 30 ML CUP PO (23:10)
[2022-08-28] MEDS: HYDROmorphone 2 MG/ML SYR 0.5 MG IVP (23:25)
[2022-08-28] MEDS: LORazepam 2 MG/ML VIAL 1 MG IVP (23:40)
[2022-08-28] MEDS: ACETAMINOPHEN 1,000 MG/100 ML BTL 400 MG IVPB (23:40)
[2022-08-29] VITALS (35 sets, daily range): BP systolic 108–140; BP diastolic 22–93; PULSE 56–85; RESP 10–32; TEMP 36.4–37.1; O2SAT 87–98
--- NOTE | 2022-08-29 01:04 | W.PM.HP.N ---
Date of service: 08/29/22 Time of Service: 01:04 Assessment and Plan Assessment and plan (1) Gastroenteritis: Start date: 08/28/22 Status: Acute Assessment and plan: This is a 36-year-old gentleman who has chronic abdominal symptoms with recurrent ED visits and history of cholelithiasis and elevated total bilirubin. He does not have any obstructive symptoms and this appears to be a presentation of acute gastroenteritis beginning with diarrhea and then having nausea and vomiting. He has had no blood in his emesis or stool despite being on Eliquis for chronic thromboembolic phenomena prevention having had pulmonary emboli and splenectomy with hypercoagulable state afterwards. Is unclear the etiology of his elevated total bilirubin and this may be Guilbert's disease. He is not having true gallbladder colic or evidence of pancreatitis so he does have most of his pain in the epigastrium with guarding. Admit for IV fluids and bowel rest as well as potassium repletion with patient having chronic potassium loss through his gut by history. Pain management with IV Dilaudid and antiemetics with Zofran. He is a full code. (2) Cholelithiasis without obstruction: Status: Acute Assessment and plan: Chronic with no evidence of acute cholecystitis or pancreatitis and no evidence of dilatation of the common bile duct but consider ultrasound. MRCP was suggested by surgery but family and patient did not want to have this and he may not be able to have it because of his IVC filter. (3) Elevated bilirubin: Status: Chronic Assessment and plan: Chronic and possibly Guilbert's disease but with his cholelithiasis and recurrent abdominal symptoms passage of stones and transient obstruction needs to be considered at times. Since his lipase is normal he is not having straightforward pancreatitis this most likely is not secondary to his acute process. (4) COVID-19: Status: Resolved Assessment and plan: Patient had COVID-19 infection remotely being more than 4 weeks and we will recheck PCR but if positive he most likely is not infectious and we will continue abundance of caution but not isolate. He is asymptomatic. (5) Upper abdominal pain: Status: Acute Assessment and plan: Associated with gastroenteritis and less likely with his cholelithiasis and gallbladder. Symptomatic care with bowel rest, IV hydration and repletion of electrolytes as needed. Pain management with Dilaudid IV. (6) Anxiety: Status: Chronic Assessment and plan: Clonazepam is being taken at home but he will have Ativan as needed during the hospital stay. Continue his sertraline. (7) Acquired hypercoagulable state: Assessment and plan: Continue Eliquis. (8) Hypokalemia due to excessive gastrointestinal loss of potassium: Status: Acute Assessment and plan: This is an acute on chronic problem with patient having this on his problem list from before. IV potassium repletion with potassium and is hydrating solution for now and monitor labs adjusting as needed. He did receive a potassium drip in the ED. His magnesium was normal but will be trended. History of Present Illness History of Present Illness Chief Complaint: Diarrhea with nausea and vomiting, upper abdominal pain Narrative: This is a 36-year-old male patient who has come to the ED quite often with extreme anxiety which is incapacitating mostly wearing winter hats and neck warmers as mask to cover his face. He hardly opens his eyes when conversing. He has had a 5-day history of what started out as watery diarrhea and then nausea and vomiting with decreased intake for the last 2 to 3 days because of the symptoms having recurrence with even water. Water would burn his esophagus. He is on famotidine and Protonix chronically and always has an elevated bilirubin thought to be possibly Gilbert's disease but he does have cholelithiasis though there does not appear to be any cholecystitis or obstruction. He was having abdominal pain mostly upper but some the right lower quadrant but CT scan did not reveal any abnormal appendix and only gallstones without complications. Surgery did see him and advised bowel rest with MRCP but the patient cannot have an MRI because of his vena caval filter. He does have hypercoagulable state status post penectomy and will be on Eliquis lifelong. The patient states that he is dry and his pain and inability to take in any fluids prompts admission for IV fluid resuscitation, bowel rest and potassium repletion as well as surgical consultation. He is a full code. The patient has had no fever or show of blood in his vomit or diarrhea. He denies any syncope or palpitations. Review of Systems Narrative: 13 point review of systems otherwise unrevealing or stable. Patient appears always have increased somatic complaints. He is extremely anxious. 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 Needs to remain on lifelong anti-caog Hereditary spherocytosis (Chronic) s/p splenectomy in 1991. Biliary colic (Acute) Elevated serum protein level (Acute) Chest pain (Acute) Hand pain, right (Acute) Pain, rectal (Acute) Abdominal pain (Acute) Left-sided thoracic back pain (Acute) Cholelithiasis (Acute) Vomiting (Acute) Acute epigastric pain (Acute) Leg numbness (Acute) Rash (Acute) Upper abdominal pain (Acute) GERD with esophagitis (Acute) Anxiety (Chronic) extreme and crippling Medical History Acquired hypercoagulable state due to splenectomy Bipolar disorder DVT of axillary vein, acute bilateral ([place]02/2019[place] [facility] [place] foreign body (~05/2018) Esophagitis determined by endoscopy (~05/2018) Essential hypertension Hyperbilirubinemia PAH (pulmonary artery hypertension) [place]/28/[place] [facility] [place] Pulmonary embolism, bilateral (~02/2019) [facility] [place] [place] [facility] [place]; RECURRENT Thrombocytosis after splenectomy Tricuspid regurgitation 02/28/19 [facility] [place]; MILD TO MOD Surgical History Abnormal findings on esophagogastroduodenoscopy (EGD) H/O hernia repair Unspecified site, repaired x3 H/O superior vena cava filter placement History of splenectomy Priapism (~08/2019) [place] [facility] [place] S/P PENILE SHUNT ([facility]) S/P IVC filter (~08/2019) [facility] [place] partial thyroidectomy Social History (Reviewed 02/15/22 @ 00:09 by TERRY Moses Smoking/Tobacco Use Status: Never Smoking risk assessment performed?: Yes Alcohol Intake: never Drug use: Never Substance use type: does not use Current gender identity: male Do you feel safe at home: Yes Do you feel safe in your relationship?: Yes Meds Allergies and Home Medications Allergies Allergy/AdvReac Type Severity Reaction Status Date / Time cat's claw Allergy Unknown Verified 08/29/22 02:03 neomycin Allergy Unknown Verified 08/29/22 02:03 [From Neosporin ([id number])] polymyxin B Allergy Unknown Verified 08/29/22 02:03 [From Neosporin ([id number])] bacitracin Allergy Verified 08/29/22 02:03 dog dander Allergy Verified 08/29/22 02:03 beer Allergy Severe Anaphylaxsi Uncoded 08/29/22 02:03 s Home Medications Medication Instructions Recorded Confirmed Type hydrocortisone 2.5 % topical 1 applic topical BID PRN neck rash 04/04/20 08/29/22 Rx ointment #28.35 grams betamethasone dipropionate 0.05 % 1 applic topical BID #15 grams 10/14/20 08/29/22 Rx topical ointment diclofenac sodium 1 % topical gel 2 g topical QID PRN back pain #150 01/17/21 08/29/22 Rx (Voltaren Arthritis Pain) grams fluticasone propionate 50 See Rx Instructions .Route 08/14/21 08/29/22 Rx mcg/actuation nasal .COMPLEX #16 mL spray,suspension famotidine 20 mg tablet (Pepcid) 20 mg PO DAILY #90 tabs 08/29/21 08/29/22 Rx apixaban 5 mg tablet 5 mg PO BID #180 tabs 11/25/21 08/29/22 Rx sertraline 100 mg tablet 100 mg PO DAILY #90 tabs 11/25/21 08/29/22 Rx risperidone 0.5 mg tablet 0.5 mg PO BID #60 tabs 12/30/21 08/29/22 Rx (Risperdal) epinephrine 0.3 mg/0.3 mL 0.3 mg (0.3 mL) IM ONCE #2 ea 01/03/22 08/29/22 Rx injection, auto-injector (EpiPen 2-Farrukh) triamcinolone acetonide 0.1 % 1 applic topical BID hand rash #30 01/19/22 08/29/22 Rx topical cream grams acetaminophen 500 mg tablet 1,000 mg PO TID PRN pain/fever 02/18/22 08/29/22 Rx (Tylenol Extra Strength) #270 tabs clonazepam 1 mg tablet 1 mg PO BID PRN anxiety #60 tabs 05/30/22 08/29/22 Rx cyclobenzaprine 10 mg tablet 10 mg PO TID PRN muscle spasm #20 05/30/22 08/29/22 Rx tabs cetirizine 10 mg tablet (Zyrtec) 10 mg PO DAILY #90 tab-caps 07/22/22 08/29/22 Rx pantoprazole 40 mg tablet,delayed 40 mg PO BID #180 tabs 07/22/22 08/29/22 Rx release doxepin 10 mg capsule 10 mg PO BID itching #60 caps 08/24/22 08/29/22 Rx Exam Narrative Exam Narrative: General: Patient appears appropriate for age, he is moderately obese lying in bed fully clothed with his head wrapped in winter devices to cover his face. He is a flattened affect with slowed and monotonous tone to voice. He is in no acute distress. He appears uncomfortable. He is alert and oriented to person, place and time. HEENT: Normocephalic but minimal exposure for exam. He did does have a full del real. Eyes with pupils equal react light symmetrically, extraocular movement tact and sclera anicteric. Neck: Supple without JVD. Lungs: Clear to auscultation and percussion. Patient has minimal inspiratory effort. Heart: Regular rate and rhythm with 2/6 to 3/6 systolic murmur left sternal border. No gallop or rubs. Abdomen: Protuberant and obese contour, soft palpation but tenderness especially over the epigastrium with slight guarding but no rebound. No palpable hepatosplenomegaly and no River sign. Right lower quadrant is tender to deep palpation but no guarding or rebound. Bowel sounds are hypoactive in all quadrants but present. Genitalia/rectal: Exam deferred. Extremities: Without clubbing, cyanosis or pitting edema. Peripheral pulses intact. Skin: Normal color without obvious jaundice, warm and dry. Large tattoo left arm. Neuro: Cranial nerves II through XII gross intact, no focalized motor deficits. No tremor. Psych: Flattened affect with depressed mood and poor eye contact. No abnormal thought processes. Remote and recent memory appear to be grossly intact. Results Imaging Imaging Studies: Exam: CT Abdomen And Pelvis With Contrast Exam date and time: 08/28/2022 10:20 PM Age: 36 years old Clinical indication: Abdominal pain; Epigastric; Prior surgery; Surgery date: 6+ months; Surgery type: Splenectomy, inguinal hernia repair, vena cava filter; Additional info: Epigastric pain TECHNIQUE: Imaging protocol: Computed tomography of the abdomen and pelvis with contrast. Radiation optimization: All CT scans at this facility use at least one of these dose optimization techniques: automated exposure control; mA and/or kV adjustment per patient size (includes targeted exams where dose is matched to clinical indication); or iterative reconstruction. Contrast material: OMNI 350; Contrast volume: 100 ml; Contrast route: INTRAVENOUS (IV);? COMPARISON: CT ABDOMEN PELVIS W 02/15/2022 1:10 AM FINDINGS: Liver: Hepatic steatosis. Gallbladder and bile ducts: Cholelithiasis. Pancreas: Normal.? Spleen: Spleen is surgically absent. Adrenal glands: Normal. No mass. Kidneys and ureters: Normal. Stomach and bowel: Normal. Appendix: Appendix normal. Intraperitoneal space: Unremarkable. No free air. No significant fluid collection. Vasculature: Inferior vena cava filter present, with filter tip and legs extending beyond the wall of the IVC. Phleboliths within the pelvis. Lymph nodes: Unremarkable. No enlarged lymph nodes. Urinary bladder: Mild urinary bladder wall thickening, possibly secondary to partially decompressed state, although cystitis is a consideration. Reproductive: Unremarkable as visualized. Bones/joints: Multilevel thoracolumbar spine degenerative disc space narrowing and osteophyte formation. Soft tissues: Normal. IMPRESSION: Mild urinary bladder wall thickening, possibly secondary to partially decompressed state, although cystitis is a consideration. Labs 08/28/22 20:52 08/28/22 20:52 Labs: Laboratory Results - last 24 hr 08/28/22 08/28/22 08/28/22 20:52 20:52 21:38 WBC 13.82 H RBC 4.93 Hgb 15.1 Hct 43.4 MCV 88 MCH 30.6 MCHC 34.8 RDW 14.5 H Plt Count 475 H MPV 10.5 Immature Gran % 0.2 Neutrophils % 50.6 Lymphocytes % 37.1 Monocytes % 10.3 Eosinophils % 1.4 Basophils % 0.4 Nucleated RBC % 0.0 Absolute Neutrophils 6.99 H Absolute Lymphocytes 5.13 H Absolute Monocytes 1.42 H Absolute Eosinophils 0.19 Absolute Basophils 0.06 RBC Morphology Normal VBG Lactate Sodium 133 L Potassium 3.0 L Chloride 96 L Carbon Dioxide 27.2 Anion Gap 9.8 BUN 11 Creatinine 1.2 Est GFR (CKD-EPI 2020) 79.88 Glucose 87 Calcium 9.4 Magnesium 1.8 Total Bilirubin 4.3 H AST 62 H ALT 40 Alkaline Phosphatase 74 Troponin I Cancelled Total Protein 8.3 H Albumin 4.4 Lipase 66 Urine Color Urine Clarity Urine pH Ur Specific [place] Urine Protein Urine Ketones Urine Blood Urine Nitrite Urine Bilirubin Urine Urobilinogen Ur Leukocyte Esterase Urine Glucose 08/28/22 08/28/22 21:45 23:00 WBC RBC Hgb Hct MCV MCH MCHC RDW Plt Count MPV Immature Gran % Neutrophils % Lymphocytes % Monocytes % Eosinophils % Basophils % Nucleated RBC % Absolute Neutrophils Absolute Lymphocytes Absolute Monocytes Absolute Eosinophils Absolute Basophils RBC Morphology VBG Lactate 0.8 Sodium Potassium Chloride Carbon Dioxide Anion Gap BUN Creatinine Est GFR (CKD-EPI 2020) Glucose Calcium Magnesium Total Bilirubin AST ALT Alkaline Phosphatase Troponin I Total Protein Albumin Lipase Urine Color Yellow Urine Clarity Clear Urine pH 6.5 Ur Specific [place] 1.010 Urine Protein Negative Urine Ketones Negative Urine Blood Negative Urine Nitrite Negative Urine Bilirubin Negative Urine Urobilinogen 0.2 Ur Leukocyte Esterase Negative Urine Glucose Negative Last Vital Signs Temp 37.1 C 08/28/22 20:33 Pulse 78 08/28/22 20:33 Resp 24 08/28/22 20:33 BP 145/79 H 08/28/22 20:33 Pulse Ox 97 08/28/22 20:33 Time Spent Time spent with Patient: >75 minutes Time was spent: preparing to see the patient(eg.review tests), obtaining and/or reviewing separately otained hiistory, ordering medications,tests, procedures, referring, communicating with other health tire care manager, indepentently interpreting results and care coordination
[2022-08-29 01:28] LABS: Source Nasal/Nares
[2022-08-29 01:59] LABS: COVID-19 PCR Negative (Negative)
[2022-08-29] MEDS: POTASSIUM CHLORIDE 20 MEQ/100 ML BAG 50 MEQ IVPB (02:05)
[2022-08-29] MEDS: HYDROmorphone 2 MG/ML SYR 1 MG IVP ×2 (02:48→07:31)
[2022-08-29] MEDS: Pantoprazole 40 MG VIAL IVP ×3 (02:51→22:00)
[2022-08-29] MEDS: LORazepam 1 MG TAB PO (02:54)
[2022-08-29] MEDS: POTASSIUM CHLORIDE/0.9% NACL 1,000 ML 150 MEQ IV (02:55)
[2022-08-29] MEDS: Normal Saline Flush 10 ML SYR IVP ×4 (02:56→22:01)
[2022-08-29 06:53] LABS: ESR 4 mm/hr (0-15)
[2022-08-29 06:55] LABS: HCT 39.4 % (40.0-50.0); HGB 13.7 g/dL (13.5-17.5); MCH 30.9 pg (27.0-33.0); MCHC 34.8 % (32.0-36.0); MCV 89 fL (80-95); MPV 9.9 fL (8.0-11.0); Platelet Count 445 10^3/uL (130-400); RBC 4.43 10^6/uL (4.36-5.78); RDW 14.6 % (11.8-14.1); RDW-SD 47.2 fL; WBC 10.22 10^3/uL (4.4-10.8)
[2022-08-29 07:10] LABS: INR 1.1 (0.9-1.1); Prothrombin Time 11.1 sec (9.3-11.0)
[2022-08-29 07:21] LABS: ALT 33 U/L (16-63); AST 51 U/L (15-37); Albumin 3.7 g/dL (3.4-5.0); Alkaline Phosphatase 58 U/L (46-116); Anion Gap 7.5 mmol/L (3-11); BUN 9 mg/dL (7-18); Bilirubin, Total 3.8 mg/dL (0.2-1.0); CO2 27.5 mmol/L (21.0-32.0); CREATININE 1.1 mg/dL (0.70-1.30); Calcium 8.8 mg/dL (8.5-10.1); Chloride 103 mmol/L (98-107); Estimated GFR 88.67 (mL/min/1.73m2); Glucose 84 mg/dL (74-106); Potassium 3.4 mmol/L (3.5-5.1); Sodium 138 mmol/L (136-145)
[2022-08-29] MEDS: Sertraline 100 MG TAB PO (09:24)
[2022-08-29] MEDS: risperiDONE 0.5 MG TAB PO ×2 (09:24→21:59)
[2022-08-29 10:18] LABS: Lab Add On Test DONE
[2022-08-29] MEDS: POTASSIUM CHLORIDE 10 MEQ/100 ML BAG 80 MEQ IVPB (10:23)
[2022-08-29] MEDS: Apixaban 5 MG TAB PO ×2 (10:58→21:59)
--- NOTE | 2022-08-29 11:24 | W.SURGCON ---
Date of service: 08/29/22 Time of Service: 11:25 Assessment and Plan Assessment and plan (1) Elevated bilirubin: Status: Chronic Assessment and plan: 36M with long-standing history of unconjugated hyperbilirubinemia presents with historical biochemical peak Tbili and abdominal pain with nausea and diarrhroea. I think for the nausea and diarrhoea he needs supportive care for now with IVF. He does not need surgery for his stones right now. That being said, however, he does need a liver biopsy. This could be done by IR at outiside facility or he could undergo lap joseph with IOC and intra-operative liver biopsy. Given the complexity of his hematological status and how long his saga has gone on, I don't think my performing that on a weekend with limited resources would be the best course of action. While here he needs the following: -Peripheral smear -Direct and indirect juaquin test His previous splenectomy complicates things further as I would expect that to be the site of red cell lysis, were that to be his issue leading to his unconjugated hyperbilirubinemia. Thought about MRCP but this would only show duct strictures suggesting sclerosing cholangitis - his LFTs don't jive with this. Supportive care for now and labs listed and next step should either be IR liver bx or lap ojseph with IOC and intra-operative biopsy after the boat has been loaded with his continuous improvement specialist, etc History of Present Illness Narrative: 36M with long-standing history of unconjugated hyperbilirubinemia presents with historicial biochemical peak Tbili and abdominal pain with nausea and diarrhroea. This admission Tbili 4+ (usually between 2-3) and cholelithiasis on CT. CBD on my read is normal and no change in alk phos to suggest docholithiasis. LUQ pain. River's negative and pain when he drinks water. No reflux reported but a history on his is challenging A very complicated history with years of elevated Tbili with normal conjugated bilirubin (a split from this admission is pending) and all other LFTs normal. He has known cholelithiasis with abd pain not consistent with biliary colic or cholecystitis. Tadeo has been a working diagnosis. I do not see that he has ever had a liver biopsy. Also with IVC filter for multiple saddle PEs and on eliquis for same. He sees a continuous improvement specialist. Splenectomy in childhood for diagnosis of heredetery spherocytosis Review of Systems Narrative: 12 point review of systems was performed and is unremarkable other than as above PFSH All Active Problems (Updated 08/29/22 @ 02:01 by Stephen Hines) Cholelithiasis without obstruction (Acute) Gastroenteritis (Acute) Acid reflux (Chronic) Nausea & vomiting (Acute) Hypokalemia (Acute) Rt inguinal pain (Acute) Eye twitch (Acute) Cellulitis (Acute) Thyroid dysfunction (Acute) Hypokalemia due to excessive gastrointestinal loss of potassium (Acute) 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 Needs to remain on lifelong anti-caog Hereditary spherocytosis (Chronic) s/p splenectomy in 1991. Biliary colic (Acute) Elevated serum protein level (Acute) Chest pain (Acute) Hand pain, right (Acute) Pain, rectal (Acute) Abdominal pain (Acute) Left-sided thoracic back pain (Acute) Cholelithiasis (Acute) Vomiting (Acute) Acute epigastric pain (Acute) Leg numbness (Acute) Rash (Acute) Upper abdominal pain (Acute) GERD with esophagitis (Acute) Anxiety (Chronic) extreme and crippling Medical History Acquired hypercoagulable state due to splenectomy Bipolar disorder DVT of [place]illary vein, [place] bilateral [place]02/2019[place] [facility] [place] (~05/[place]) Esophagitis determined by endoscopy (~05/2018) Essential hypertension Hyperbilirubinemia PAH (pulmonary artery hypertension) [place] [facility] [place] Pulmonary embolism, bilateral (~02/2019) [facility] [place] [place] [place] [facility] [place]UR[place] Thrombocytosis after splenectomy Tricuspid regurgitation 02/28/[place] [facility] [place] MILD TO MOD Surgical History Abnormal findings on esophagogastroduodenoscopy (EGD) H/O hernia repair Unspecified site, repaired x3 H/O superior vena cava filter placement History of splenectomy Priapism (~08/2019) [place] [facility] [place] S[place]P PENILE SHUNT ([place]) S/P IVC filter (~08/2019) [facility] [place] Social History Smoking/Tobacco Use Status: Never Smoking risk assessment performed?: Yes Alcohol Intake: never Drug use: Never Substance use type: does not use Current gender identity: male Do you feel safe at home: Yes Do you feel safe in your relationship?: Yes Exam Const General: no acute distress, anxious and disheveled Eyes Sclera: sclerae normal Resp Effort & Inspection: normal respiratory effort Cardio Rate: regular rate Rhythm: regular rhythm GI Palpation: soft and other (Tender to deep palpation LUQ. No pain RUQ. River's negative) Neuro General: patient alert and patient oriented x3 Extrem General: full ROM Results Last Vital Signs Temp 36.4 C L 08/29/22 09:36 Pulse 74 08/29/22 09:36 Resp 18 08/29/22 09:36 BP 126/66 08/29/22 09:36 Pulse Ox 94 08/29/22 09:36 Labs 08/29/22 06:15 08/29/22 06:15 Labs: Laboratory Results - last 24 hr 08/28/22 08/28/22 08/28/22 20:52 20:52 21:38 WBC 13.82 H RBC 4.93 Hgb 15.1 Hct 43.4 MCV 88 MCH 30.6 MCHC 34.8 RDW 14.5 H Plt Count 475 H MPV 10.5 Immature Gran % 0.2 Neutrophils % 50.6 Lymphocytes % 37.1 Monocytes % 10.3 Eosinophils % 1.4 Basophils % 0.4 Nucleated RBC % 0.0 Absolute Neutrophils 6.99 H Absolute Lymphocytes 5.13 H Absolute Monocytes 1.42 H Absolute Eosinophils 0.19 Absolute Basophils 0.06 RBC Morphology Normal ESR PT INR VBG Lactate Sodium 133 L Potassium 3.0 L Chloride 96 L Carbon Dioxide 27.2 Anion Gap 9.8 BUN 11 Creatinine 1.2 Est GFR (CKD-EPI 2020) 79.88 Glucose 87 Calcium 9.4 Magnesium 1.8 Total Bilirubin 4.3 H AST 62 H ALT 40 Alkaline Phosphatase 74 Troponin I Cancelled Total Protein 8.3 H Albumin 4.4 Lipase 66 Urine Color Urine Clarity Urine pH Ur Specific [place] Urine Protein Urine Ketones Urine Blood Urine Nitrite Urine Bilirubin Urine Urobilinogen Ur Leukocyte Esterase Urine Glucose COVID-19 Source SARS-CoV-2 (PCR) Add-On Test Request 08/28/22 08/28/22 08/29/22 21:45 23:00 01:22 WBC RBC Hgb Hct MCV MCH MCHC RDW Plt Count MPV Immature Gran % Neutrophils % Lymphocytes % Monocytes % Eosinophils % Basophils % Nucleated RBC % Absolute Neutrophils Absolute Lymphocytes Absolute Monocytes Absolute Eosinophils Absolute Basophils RBC Morphology ESR PT INR VBG Lactate 0.8 Sodium Potassium Chloride Carbon Dioxide Anion Gap BUN Creatinine Est GFR (CKD-EPI 2020) Glucose Calcium Magnesium Total Bilirubin AST ALT Alkaline Phosphatase Troponin I Total Protein Albumin Lipase Urine Color Yellow Urine Clarity Clear Urine pH 6.5 Ur Specific [place] 1.010 Urine Protein Negative Urine Ketones Negative Urine Blood Negative Urine Nitrite Negative Urine Bilirubin Negative Urine Urobilinogen 0.2 Ur Leukocyte Esterase Negative Urine Glucose Negative COVID-19 Source Cancelled SARS-CoV-2 (PCR) Cancelled Add-On Test Request 08/29/22 08/29/22 08/29/22 01:25 06:15 06:15 WBC RBC Hgb Hct MCV MCH MCHC RDW Plt Count MPV Immature Gran % Neutrophils % Lymphocytes % Monocytes % Eosinophils % Basophils % Nucleated RBC % Absolute Neutrophils Absolute Lymphocytes Absolute Monocytes Absolute Eosinophils Absolute Basophils RBC Morphology ESR PT 11.1 H INR 1.1 VBG Lactate Sodium 138 Potassium 3.4 L Chloride 103 Carbon Dioxide 27.5 Anion Gap 7.5 BUN 9 Creatinine 1.1 Est GFR (CKD-EPI 2020) 88.67 Glucose 84 Calcium 8.8 Magnesium 2.0 Total Bilirubin 3.8 H AST 51 H ALT 33 Alkaline Phosphatase 58 Troponin I Total Protein 7.0 Albumin 3.7 Lipase Urine Color Urine Clarity Urine pH Ur Specific [place] Urine Protein Urine Ketones Urine Blood Urine Nitrite Urine Bilirubin Urine Urobilinogen Ur Leukocyte Esterase Urine Glucose COVID-19 Source Nasal/Nares SARS-CoV-2 (PCR) Negative Add-On Test Request 08/29/22 08/29/22 08/29/22 06:15 06:15 06:15 WBC 10.22 RBC 4.43 Hgb 13.7 Hct 39.4 L MCV 89 MCH 30.9 MCHC 34.8 RDW 14.6 H Plt Count 445 H MPV 9.9 Immature Gran % Neutrophils % Lymphocytes % Monocytes % Eosinophils % Basophils % Nucleated RBC % Absolute Neutrophils Absolute Lymphocytes Absolute Monocytes Absolute Eosinophils Absolute Basophils RBC Morphology ESR 4 PT INR VBG Lactate Sodium Potassium Chloride Carbon Dioxide Anion Gap BUN Creatinine Est GFR (CKD-EPI 2020) Glucose Calcium Magnesium Total Bilirubin AST ALT Alkaline Phosphatase Troponin I Total Protein Albumin Lipase Urine Color Urine Clarity Urine pH Ur Specific [place] Urine Protein Urine Ketones Urine Blood Urine Nitrite Urine Bilirubin Urine Urobilinogen Ur Leukocyte Esterase Urine Glucose COVID-19 Source SARS-CoV-2 (PCR) Add-On Test Request DONE Imaging Abdomen CT scan report/results: report reviewed and image reviewed
[2022-08-29 11:31] LABS: Ammonia 28 umol/L (11-32)
[2022-08-29] MEDS: POTASSIUM CHLORIDE 10 MEQ/100 ML BAG IVPB ×3 (11:48→13:45)
[2022-08-29 12:03] LABS: Lab Add On Test COMPLETE
[2022-08-29] MEDS: Mylanta Suspension 30 ML CUP PO (12:37)
--- NOTE | 2022-08-29 13:48 | PGE_ITS ---
Date of Service Date of service: 08/29/22 Time of Service: 13:48 Assessment and Plan Assessment and plan (1) Cholelithiasis without obstruction: Status: Acute Assessment and plan: Chronic with no evidence of acute cholecystitis or pancreatitis and no evidence of dilatation of the common bile duct but consider ultrasound. MRCP to be considered but unlikely gallbladder. surgical consultation, see report. (2) Elevated bilirubin: Status: Chronic Assessment and plan: Chronic and possibly Guilbert's disease but with his cholelithiasis and recurrent abdominal symptoms passage of stones and transient obstruction needs to be considered . surger consulted normal lipase. hepatitis panel pending. will need liver biopsy. indirect bili, juaquin test, direct and indirect, and peripheral smear all added following surg consultation. (3) Upper abdominal pain: Status: Acute Assessment and plan: left sided, thought to be associated with gastroenteritis and less likely with his cholelithiasis and gallbladder. Symptomatic care with bowel rest, IV hydration and repletion of electrolytes as needed. Pain management with Dilaudid IV. (4) Anxiety: Status: Chronic Assessment and plan: Clonazepam is being taken at home but he will have Ativan as needed during the hospital stay. Continue his sertraline. (5) Acquired hypercoagulable state: Assessment and plan: Continue Eliquis. (6) Hypokalemia due to excessive gastrointestinal loss of potassium: Status: Acute Assessment and plan: continue to replete and follow. magnesium normal limits Subjective Subjective Patient reports: still having pain, nausea and afebrile; denies vomiting Exam Const General: disheveled, frail appearing and ill appearing acutely Nutritional Appearance: obese Orientation: alert, awake and oriented x3 HENMD Head: atraumatic Mouth: moist mucous membranes abnormal (dry) Resp Effort & Inspection: normal respiratory effort Cardio Rate: regular rate GI Inspection: normal to inspection Palpation: soft and tender in the LUQ Neuro General: patient alert, patient awake and patient oriented x3 Cognition: normal cognition Extrem General: normal to inspection and full ROM Psych Speech and Movement: delayed speech Affect: blunted Attitude: cooperative Objective Last Vital Signs Temp 36.6 C 08/29/22 11:43 Pulse 72 08/29/22 11:43 Resp 18 08/29/22 11:43 BP 136/64 08/29/22 11:43 Pulse Ox 93 08/29/22 11:43 Laboratory Results - last 24 hr 08/28/22 08/28/22 08/28/22 20:52 20:52 21:38 WBC 13.82 H RBC 4.93 Hgb 15.1 Hct 43.4 MCV 88 MCH 30.6 MCHC 34.8 RDW 14.5 H Plt Count 475 H MPV 10.5 Immature Gran % 0.2 Neutrophils % 50.6 Lymphocytes % 37.1 Monocytes % 10.3 Eosinophils % 1.4 Basophils % 0.4 Nucleated RBC % 0.0 Absolute Neutrophils 6.99 H Absolute Lymphocytes 5.13 H Absolute Monocytes 1.42 H Absolute Eosinophils 0.19 Absolute Basophils 0.06 RBC Morphology Normal ESR PT INR VBG Lactate Sodium 133 L Potassium 3.0 L Chloride 96 L Carbon Dioxide 27.2 Anion Gap 9.8 BUN 11 Creatinine 1.2 Est GFR (CKD-EPI 2020) 79.88 Glucose 87 Calcium 9.4 Magnesium 1.8 Total Bilirubin 4.3 H AST 62 H ALT 40 Alkaline Phosphatase 74 Ammonia Troponin I Cancelled Total Protein 8.3 H Albumin 4.4 Lipase 66 Urine Color Urine Clarity Urine pH Ur Specific [place] Urine Protein Urine Ketones Urine Blood Urine Nitrite Urine Bilirubin Urine Urobilinogen Ur Leukocyte Esterase Urine Glucose COVID-19 Source SARS-CoV-2 (PCR) Add-On Test Request Patient ABO/Rh Antibody Screen Direct Antiglob Test 08/28/22 08/28/22 08/29/22 21:45 23:00 01:22 WBC RBC Hgb Hct MCV MCH MCHC RDW Plt Count MPV Immature Gran % Neutrophils % Lymphocytes % Monocytes % Eosinophils % Basophils % Nucleated RBC % Absolute Neutrophils Absolute Lymphocytes Absolute Monocytes Absolute Eosinophils Absolute Basophils RBC Morphology ESR PT INR VBG Lactate 0.8 Sodium Potassium Chloride Carbon Dioxide Anion Gap BUN Creatinine Est GFR (CKD-EPI 2020) Glucose Calcium Magnesium Total Bilirubin AST ALT Alkaline Phosphatase Ammonia Troponin I Total Protein Albumin Lipase Urine Color Yellow Urine Clarity Clear Urine pH 6.5 Ur Specific [place] 1.010 Urine Protein Negative Urine Ketones Negative Urine Blood Negative Urine Nitrite Negative Urine Bilirubin Negative Urine Urobilinogen 0.2 Ur Leukocyte Esterase Negative Urine Glucose Negative COVID-19 Source Cancelled SARS-CoV-2 (PCR) Cancelled Add-On Test Request Patient ABO/Rh Antibody Screen Direct Antiglob Test 08/29/22 08/29/22 08/29/22 01:25 06:15 06:15 WBC RBC Hgb Hct MCV MCH MCHC RDW Plt Count MPV Immature Gran % Neutrophils % Lymphocytes % Monocytes % Eosinophils % Basophils % Nucleated RBC % Absolute Neutrophils Absolute Lymphocytes Absolute Monocytes Absolute Eosinophils Absolute Basophils RBC Morphology ESR PT 11.1 H INR 1.1 VBG Lactate Sodium 138 Potassium 3.4 L Chloride 103 Carbon Dioxide 27.5 Anion Gap 7.5 BUN 9 Creatinine 1.1 Est GFR (CKD-EPI 2020) 88.67 Glucose 84 Calcium 8.8 Magnesium 2.0 Total Bilirubin 3.8 H AST 51 H ALT 33 Alkaline Phosphatase 58 Ammonia Troponin I Total Protein 7.0 Albumin 3.7 Lipase Urine Color Urine Clarity Urine pH Ur Specific [place] Urine Protein Urine Ketones Urine Blood Urine Nitrite Urine Bilirubin Urine Urobilinogen Ur Leukocyte Esterase Urine Glucose COVID-19 Source Nasal/Nares SARS-CoV-2 (PCR) Negative Add-On Test Request Patient ABO/Rh Antibody Screen Direct Antiglob Test 08/29/22 08/29/22 08/29/22 06:15 06:15 06:15 WBC 10.22 RBC 4.43 Hgb 13.7 Hct 39.4 L MCV 89 MCH 30.9 MCHC 34.8 RDW 14.6 H Plt Count 445 H MPV 9.9 Immature Gran % Neutrophils % Lymphocytes % Monocytes % Eosinophils % Basophils % Nucleated RBC % Absolute Neutrophils Absolute Lymphocytes Absolute Monocytes Absolute Eosinophils Absolute Basophils RBC Morphology ESR 4 PT INR VBG Lactate Sodium Potassium Chloride Carbon Dioxide Anion Gap BUN Creatinine Est GFR (CKD-EPI 2020) Glucose Calcium Magnesium Total Bilirubin AST ALT Alkaline Phosphatase Ammonia Troponin I Total Protein Albumin Lipase Urine Color Urine Clarity Urine pH Ur Specific [place] Urine Protein Urine Ketones Urine Blood Urine Nitrite Urine Bilirubin Urine Urobilinogen Ur Leukocyte Esterase Urine Glucose COVID-19 Source SARS-CoV-2 (PCR) Add-On Test Request DONE Patient ABO/Rh Antibody Screen Direct Antiglob Test 08/29/22 08/29/22 08/29/22 11:15 11:35 12:02 WBC RBC Hgb Hct MCV MCH MCHC RDW Plt Count MPV Immature Gran % Neutrophils % Lymphocytes % Monocytes % Eosinophils % Basophils % Nucleated RBC % Absolute Neutrophils Absolute Lymphocytes Absolute Monocytes Absolute Eosinophils Absolute Basophils RBC Morphology ESR PT INR VBG Lactate Sodium Potassium Chloride Carbon Dioxide Anion Gap BUN Creatinine Est GFR (CKD-EPI 2020) Glucose Calcium Magnesium Total Bilirubin AST ALT Alkaline Phosphatase Ammonia 28 Troponin I Total Protein Albumin Lipase Urine Color Urine Clarity Urine pH Ur Specific [place] Urine Protein Urine Ketones Urine Blood Urine Nitrite Urine Bilirubin Urine Urobilinogen Ur Leukocyte Esterase Urine Glucose COVID-19 Source SARS-CoV-2 (PCR) Add-On Test Request COMPLETE Patient ABO/Rh O Positive Antibody Screen NEGATIVE Direct Antiglob Test Negative Time Spent with Patient Time Spent with Patient: 35-49 minutes Time was spent: preparing to see the patient(eg.review tests), obtaining and/or reviewing separately otained hiistory, ordering medications,tests, procedures, referring, communicating with other health skin care consultant and indepentently interpreting results
[2022-08-29] MEDS: POTASSIUM CHLORIDE/D5-0.45NACL 1,000 ML 75 MEQ IV (14:55)
--- NOTE | 2022-08-29 16:23 | PDOC.CMIN ---
- If Service Date Differs Date of service: 08/29/22 Time of Service: 16:23 Care Management Initial Assess REASON FOR HOSPITALIZATION:: Gastroenteritis, Upper Abdominal Pain PAST MEDICAL HISTORY/PAST SURGICAL HISTORY:: All Active Problems (Updated 08/29/22 @ 02:01 by Stephen Hines). Cholelithiasis without obstruction (Acute). Gastroenteritis (Acute). Acid reflux (Chronic). Nausea & vomiting (Acute). Hypokalemia (Acute). Rt inguinal pain (Acute). Eye twitch (Acute). Cellulitis (Acute). Thyroid dysfunction (Acute). Hypokalemia due to excessive gastrointestinal loss of potassium (Acute). Elevated bilirubin (Chronic). chronic since 2008- 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. 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 History of pulmonary embolism (Chronic). 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 Hereditary spherocytosis (Chronic). s/p splenectomy in 1991. Biliary colic (Acute). Elevated serum protein level (Acute). Chest pain (Acute). Hand pain, right (Acute). Pain, rectal (Acute). Abdominal pain (Acute). Left-sided thoracic back pain (Acute). Cholelithiasis (Acute). Vomiting (Acute). Acute epigastric pain (Acute). Leg numbness (Acute). Rash (Acute). Upper abdominal pain (Acute). GERD with esophagitis (Acute). Anxiety (Chronic). extreme and crippling. Medical History . Acquired hypercoagulable state. due to splenectomy. Bipolar disorder. DVT of axillary vein, acute bilateral (~02/2019). [facility] [place]. Esophageal foreign body (~05/2018). Esophagitis determined by endoscopy (~05/2018). Essential hypertension. Hyperbilirubinemia. PAH (pulmonary artery hypertension). 02/28/19 [facility] [place] ECHO (MILD). Pulmonary embolism, bilateral (~02/2019). [facility] [place] PE Dr. Flores. [facility] [place]; RECURRENT. Thrombocytosis after splenectomy. Tricuspid regurgitation. 02/28/19 [facility] [place] ECHO; MILD TO MOD. Surgical History . Abnormal findings on esophagogastroduodenoscopy (EGD). H/O hernia repair. Unspecified site, repaired x3. H/O superior vena cava filter placement. History of splenectomy. Priapism (~08/2019). 09/11/19 [facility] [place]; S/P PENILE SHUNT ([place]). S/P IVC filter (~08/2019). [facility] [place]. S/P partial thyroidectomy PREVIOUS FUNCTIONAL STATUS/SOCIAL/FAMILY SUPPORTS:: Golden lives in [place] with his father Dewayne. He identifies his father and his sister Madina as being the primary supports in his life. Golden does not drive, but is independent with his ADL's. His father provides his transportation. CURRENT FUNCTIONAL STATUS:: Golden is lying in bed when CM met with him. He appears to be awake but does not communicate or make eye contact with this ticket writer. Information for this assessment is obtained through chart review and information provided by the hospitalist. ADVANCE DIRECTIVES:: None on file. Has patient been provided with info about the portal/API?: Yes Did the patient sign up for the portal?: Yes (Prior to admission) CODE STATUS:: Full Code INSURANCE COVERAGE / FINANCIAL ISSUES:: Medicaid. Medicare CURRENT HOME/COMMUNITY SERVICES/EQUIPMENT:: None PRIMARY CARE PHYSICIAN:: [facility] POTENTIAL DISCHARGE NEEDS:: Transfer vs. outpatient follow up with hepatology. PATIENT/FAMILY EDUCATION NEEDS:: Review discharge instructions, medications, limitations and plan to follow up with PCP and outpatient hepatology. Discuss ask me three. TRANSPORTATION:: Dependent on dispo. Via private vehicle with family if discharging home. PLAN:: Golden is being closely monitored and further medical work-up being done. Per MD, depending on the findings Golden will require transfer to a tertiary hospital vs. home with outpatient hepatology follow up. CM will continue to follow.
[2022-08-29] MEDS: HYDROmorphone 2 MG/ML VIAL 1 MG IVP (21:59)
[2022-08-30] VITALS (10 sets, daily range): BP systolic 111–144; BP diastolic 26–79; PULSE 66–86; RESP 18; TEMP 36.7–37; O2SAT 92–95
[2022-08-30] MEDS: HYDROmorphone 2 MG/ML VIAL 1 MG IVP ×3 (03:48→21:12)
[2022-08-30] MEDS: LORazepam 1 MG TAB PO ×2 (03:48→21:11)
--- NOTE | 2022-08-30 08:20 | PGE_ITS ---
Date of Service Date of service: 08/30/22 Time of Service: 08:20 Assessment and Plan Assessment and plan (1) Cholelithiasis: Status: Acute Assessment and plan: 36M with long-standing history of unconjugated hyperbilirubinemia? presents with historical biochemical peak Tbili and abdominal pain with nausea and diarrhroea. Waiting on smear/Funmilayo/etc Abd pain improved and still not consistent with biliary source Tolerting some clears Stay this course Qualifiers: Cholelithiasis location: gallbladder Cholecystitis presence: without cholecystitis Biliary obstruction: without biliary obstruction Qualified C ode(s): K80.20 - Calculus of gallbladder without cholecystitis without obstruction Objective Last Vital Signs Temp 36.8 C 08/30/22 07:12 Pulse 86 08/30/22 07:12 Resp 18 08/30/22 07:12 BP 129/75 08/30/22 07:12 Pulse Ox 93 08/30/22 07:12 Laboratory Results - last 24 hr 08/29/22 08/29/22 08/29/22 06:15 11:15 11:35 Ammonia 28 Add-On Test Request DONE Patient ABO/Rh O Positive Antibody Screen NEGATIVE Direct Antiglob Test Negative 08/29/22 12:02 Ammonia Add-On Test Request COMPLETE Patient ABO/Rh Antibody Screen Direct Antiglob Test Time Spent with Patient Time Spent with Patient: <25 minutes Time was spent: preparing to see the patient(eg.review tests) and counseling the patient
[2022-08-30] MEDS: Sertraline 100 MG TAB PO (08:40)
[2022-08-30] MEDS: Apixaban 5 MG TAB PO (08:40)
[2022-08-30] MEDS: Acetaminophen 325 MG TAB PO ×2 (08:40→21:12)
[2022-08-30] MEDS: Pantoprazole 40 MG VIAL IVP ×2 (08:40→21:10)
[2022-08-30] MEDS: risperiDONE 0.5 MG TAB PO ×2 (08:40→21:11)
[2022-08-30] MEDS: Normal Saline Flush 10 ML SYR IVP ×3 (08:41→23:53)
[2022-08-30] MEDS: POTASSIUM CHLORIDE/D5-0.45NACL 1,000 ML 75 MEQ IV ×2 (08:51→21:14)
--- NOTE | 2022-08-30 11:04 | PGE_ITS ---
Date of Service Date of service: 08/30/22 Time of Service: 11:04 Assessment and Plan Assessment and plan (1) Cholelithiasis without obstruction: Status: Acute Assessment and plan: Chronic with no evidence of acute cholecystitis or pancreatitis and no evidence of dilatation of the common bile duct but consider ultrasound. MRCP to be considered but unlikely gallbladder. surgical consultation, see report. (2) Elevated bilirubin: Status: Chronic Assessment and plan: Chronic and possibly Guilbert's disease but with his cholelithiasis and recurrent abdominal symptoms passage of stones and transient obstruction needs to be considered . surgery consulted normal lipase. hepatitis panel pending. will need liver biopsy. will consult with [facility] hepatology Wednesday indirect bili, juaquin test, direct and indirect, and peripheral smear all added and still pending (3) Upper abdominal pain: Status: Acute Assessment and plan: left sided, thought to be associated with gastroenteritis and less likely with his cholelithiasis and gallbladder. Symptomatic care with bowel rest, IV hydration and repletion of electrolytes as needed. Pain management with Dilaud id IV. continue to advance diet as tolerated. (4) Anxiety: Status: Chronic Assessment and plan: Clonazepam is being taken at home but he will have Ativan as needed during the hospital stay. Continue his sertraline. (5) Acquired hypercoagulable state: Assessment and plan: Continue Eliquis. (6) Hypokalemia due to excessive gastrointestinal loss of potassium: Status: Acute Assessment and plan: continue to replete and follow. magnesium normal limits discussed with DR Hill Subjective Subjective Patient reports: tolerating liquids well, voiding w/o difficulty, diarrhea, nausea, vomiting and afebrile; denies shortness of breath Interval history since last seen: difficult review of systems but looks more comfortable than yesterday. tolerating some clears but still reporting pain. no fever, vitals stable. abdominal exam remains benign. Exam Narrative Exam Narrative: making better eye contact today Const General: disheveled and frail appearing Nutritional Appearance: obese Orientation: alert, awake and oriented x3 HENMT Head: atraumatic Resp Effort & Inspection: normal respiratory effort Cardio Rate: regular rate GI Inspection: normal to inspection Palpation: soft and tender in the LUQ Neuro General: patient alert, patient awake and patient oriented x3 Cognition: normal cognition Extrem General: normal to inspection and full ROM Psych Speech and Movement: delayed speech Affect: blunted Attitude: cooperative Objective Last Vital Signs Temp 36.8 C 08/30/22 07:12 Pulse 73 08/30/22 10:14 Resp 18 08/30/22 07:12 BP 129/75 08/30/22 07:12 Pulse Ox 93 08/30/22 07:12 Laboratory Results - last 24 hr 08/29/22 08/29/22 08/29/22 11:15 11:35 12:02 Ammonia 28 Add-On Test Request COMPLETE Patient ABO/Rh O Positive Antibody Screen NEGATIVE Direct Antiglob Test Negative Time Spent with Patient Time Spent with Patient: 25-34 minutes Time was spent: preparing to see the patient(eg.review tests), obtaining and/or reviewing separately otained hiistory, ordering medications,tests, procedures, referring, communicating with other health before and after school daycare worker and indepentently interpreting results
[2022-08-31] VITALS (7 sets, daily range): BP systolic 120–165; BP diastolic 72–96; PULSE 16–97; RESP 18–20; TEMP 36.5–37.6; O2SAT 92–94
[2022-08-31 06:27] LABS: Abs Immature Grans 0.02 10^3/uL (0.0-0.06); Absolute Basophil Count 0.07 10^3/uL (0.0-0.2); Absolute Eosinophil Count 0.34 10^3/uL (0.0-0.7); Absolute Lymphocyte Count 3.67 10^3/uL (1.2-3.4); Absolute Neutrophil Count 5.01 10^3/uL (1.2-6.7); Basophils % 0.7; Eosinophils % 3.2; HCT 41.4 % (40.0-50.0); Immature Grans % 0.2; Lymphocytes % 34.3; MCH 31.2 pg (27.0-33.0); MCHC 33.8 % (32.0-36.0); MCV 92 fL (80-95); MPV 10.2 fL (8.0-11.0); Monocytes % 14.9; Neutrophils % 46.7; Platelet Count 414 10^3/uL (130-400); RBC 4.49 10^6/uL (4.36-5.78); RDW-SD 50.4 fL; WBC 10.71 10^3/uL (4.4-10.8)
[2022-08-31 06:52] LABS: Diff Comment Agrees w/ Instrument; RBC Morphology Normal
[2022-08-31 07:15] LABS: ALT 30 U/L (16-63); AST 32 U/L (15-37); Albumin 3.6 g/dL (3.4-5.0); Alkaline Phosphatase 63 U/L (46-116); Anion Gap 8.6 mmol/L (3-11); BUN 6 mg/dL (7-18); Bilirubin, Total 1.7 mg/dL (0.2-1.0); CO2 27.4 mmol/L (21.0-32.0); Calcium 8.8 mg/dL (8.5-10.1); Chloride 106 mmol/L (98-107); Estimated GFR 99.41 (mL/min/1.73m2); Glucose 99 mg/dL (74-106); Potassium 3.6 mmol/L (3.5-5.1); Sodium 142 mmol/L (136-145); Total Protein 7.1 g/dL (6.4-8.2)
--- NOTE | 2022-08-31 08:16 | W.PM.PROGNOT ---
Date of Service Date of service: 08/31/22 Time of Service: 08:17 Assessment and Plan Assessment and plan (1) Cholelithiasis without obstruction: Status: Acute Assessment and plan: 36M with long-standing history of unconjugated hyperbilirubinemia? presents with historical biochemical peak Tbili and abdominal pain with nausea and diarrhroea. Waiting on smear/Funmilayo/etc Abd pain improved and still not consistent with biliary source Tolerating clears ADAT Objective Last Vital Signs Temp 36.9 C 08/31/22 05:30 Pulse 80 08/31/22 05:30 Resp 20 08/31/22 05:30 BP 141/77 H 08/31/22 05:30 Pulse Ox 94 08/31/22 05:30 Laboratory Results - last 24 hr 08/31/22 08/31/22 05:34 05:34 WBC 10.71 RBC 4.49 Hgb 14.0 Hct 41.4 MCV 92 MCH 31.2 MCHC 33.8 RDW 15.0 H Plt Count 414 H MPV 10.2 Immature Gran % 0.2 Neutrophils % 46.7 Lymphocytes % 34.3 Monocytes % 14.9 Eosinophils % 3.2 Basophils % 0.7 Nucleated RBC % 0.0 Absolute Neutrophils 5.01 Absolute Lymphocytes 3.67 H Absolute Monocytes 1.60 H Absolute Eosinophils 0.34 Absolute Basophils 0.07 RBC Morphology Normal Sodium 142 Potassium 3.6 Chloride 106 Carbon Dioxide 27.4 Anion Gap 8.6 BUN 6 L Creatinine 1.0 Est GFR (CKD-EPI 2020) 99.41 Glucose 99 Calcium 8.8 Total Bilirubin 1.7 H AST 32 ALT 30 Alkaline Phosphatase 63 Total Protein 7.1 Albumin 3.6 Time Spent with Patient Time Spent with Patient: <25 minutes Time was spent: preparing to see the patient(eg.review tests), indepentently interpreting results and counseling the patient
[2022-08-31] MEDS: Normal Saline Flush 10 ML SYR IVP ×3 (09:12→23:20)
[2022-08-31] MEDS: HYDROmorphone 2 MG/ML VIAL 1 MG IVP ×2 (09:13→23:19)
[2022-08-31] MEDS: Pantoprazole 40 MG VIAL IVP ×2 (09:13→19:49)
[2022-08-31] MEDS: POTASSIUM CHLORIDE/D5-0.45NACL 1,000 ML 75 MEQ IV ×2 (09:32→21:58)
[2022-08-31 11:02] LABS: Hepatitis A Antibody IgM Negative (Negative); Hepatitis B Core Antibody Negative (Negative); Hepatitis B surface Ag Negative (Negative); Hepatitis C Ab w Rflx HCV PCR Negative (Negative)
--- NOTE | 2022-08-31 11:14 | CMPROGNOTE_ITS ---
- If Service Date Differs Date of service: 08/31/22 Time of Service: 11:14 Care Management Progress Note S/O: Golden is lying in bed with his hands resting on his lower abdomen. He communicates minimally and doesn't make eye contact with this senior technical writer. Pt was transferred to the ICU overnight. He is NPO and being closely monitored and treated for abdominal pain, N/V/D and elevated Bilirubin. Surgery in consulted, please see report. Per hospitalist, the plan is to contact [facility] hepatology today to discuss a liver biopsy. CM will continue to follow. A: 36 year old male admitted to [facility] on 08/31/22 for Gastroenteritis, Upper Abdominal Pain P: Golden is being closely monitored and further medical work-up being done. Per MD, depending on the findings Golden will require transfer to a tertiary hospital vs. home with outpatient hepatology follow up. CM will continue to follow.
--- NOTE | 2022-08-31 13:38 | W.PM.PROGNOT ---
Date of Service Date of service: 08/31/22 Time of Service: 13:38 Assessment and Plan Assessment and plan (1) Cholelithiasis without obstruction: Status: Acute Assessment and plan: Chronic with no evidence of acute cholecystitis or pancreatitis and no evidence of dilatation of the common bile duct but consider ultrasound. MRCP to be considered but unlikely gallbladder. surgical consultation, see report. (2) Elevated bilirubin: Status: Chronic Assessment and plan: Chronic and possibly Guilbert's disease but with his cholelithiasis and recurrent abdominal symptoms passage of stones and transient obstruction needs to be considered . surgery consulted normal lipase. hepatitis panel negative tbili normalized to his baseline and is at 1.7 today consider liver biopsy. case discussed with [facility] hepatology Dr Jones today. case reviewed and recommendations for outpatient follow up as tbili improved. indirect bili, juaquin test, direct and indirect, and peripheral smear all added and still pending (3) Upper abdominal pain: Status: Acute Assessment and plan: left sided, thought to be associated with gastroenteritis and less likely with his cholelithiasis and gallbladder. Symptomatic care with bowel rest, IV hydration and repletion of electrolytes as needed. Pain management with Dilaudid IV. continue to advance diet as tolerated. anticipate discharge home tomorrow with no services if medically stable (4) Anxiety: Status: Chronic Assessment and plan: Clonazepam is being taken at home but he will have Ativan as needed during the hospital stay. Continue his sertraline. (5) Acquired hypercoagulable state: Assessment and plan: Continue Eliquis. (6) Hypokalemia due to excessive gastrointestinal loss of potassium: Status: Resolved Assessment and plan: continue to replete and follow. magnesium normal limits discussed with DR Hill Subjective Subjective Patient reports: voiding w/o difficulty, nausea, vomiting and afebrile Exam Narrative Exam Narrative: making better eye contact today Const General: disheveled and frail appearing Nutritional Appearance: obese Orientation: alert, awake and oriented x3 HENMT Head: atraumatic Resp Effort & Inspection: normal respiratory effort Cardio Rate: regular rate GI Inspection: normal to inspection Palpation: soft and tender in the LUQ Neuro General: patient alert, patient awake and patient oriented x3 Cognition: normal cognition Extrem General: normal to inspection and full ROM Psych Speech and Movement: delayed speech Affect: blunted Attitude: cooperative Objective Last Vital Signs Temp 36.5 C 08/31/22 11:54 Pulse 16 L 08/31/22 11:54 Resp 20 08/31/22 05:30 BP 120/72 08/31/22 11:54 Pulse Ox 93 08/31/22 11:54 Laboratory Results - last 24 hr 08/28/22 08/31/22 08/31/22 20:52 05:34 05:34 WBC 10.71 RBC 4.49 Hgb 14.0 Hct 41.4 MCV 92 MCH 31.2 MCHC 33.8 RDW 15.0 H Plt Count 414 H MPV 10.2 Immature Gran % 0.2 Neutrophils % 46.7 Lymphocytes % 34.3 Monocytes % 14.9 Eosinophils % 3.2 Basophils % 0.7 Nucleated RBC % 0.0 Absolute Neutrophils 5.01 Absolute Lymphocytes 3.67 H Absolute Monocytes 1.60 H Absolute Eosinophils 0.34 Absolute Basophils 0.07 RBC Morphology Normal Sodium 142 Potassium 3.6 Chloride 106 Carbon Dioxide 27.4 Anion Gap 8.6 BUN 6 L Creatinine 1.0 Est GFR (CKD-EPI 2020) 99.41 Glucose 99 Calcium 8.8 Total Bilirubin 1.7 H AST 32 ALT 30 Alkaline Phosphatase 63 Total Protein 7.1 Albumin 3.6 Hepatitis A IgM Ab Negative Hep Bs Antigen Negative Hep B Core Total Ab Negative Hepatitis C Antibody Negative Time Spent with Patient Time Spent with Patient: 35-49 minutes Time was spent: preparing to see the patient(eg.review tests), obtaining and/or reviewing separately otained hiistory, ordering medications,tests, procedures, referring, communicating with other health respiratory care assistant and indepentently interpreting results
[2022-08-31] MEDS: Apixaban 5 MG TAB PO ×2 (14:50→21:58)
[2022-08-31 19:42] LABS: Ammonia 28 umol/L (11-32)
[2022-08-31] MEDS: risperiDONE 0.5 MG TAB PO (19:49)
[2022-08-31] MEDS: Mylanta Suspension 30 ML CUP PO (23:18)
[2022-08-31] MEDS: LORazepam 1 MG TAB PO (23:19)
[2022-09-01] VITALS (9 sets, daily range): BP systolic 113–145; BP diastolic 77–88; PULSE 79–94; RESP 16–20; TEMP 36.4–37.3; O2SAT 92–96
--- NOTE | 2022-09-01 | DI.US_ITS ---
Exam(s) US ABDOMEN LIMITED EXAM: US ABDOMEN LIMITED CLINICAL HISTORY: known hx gallstone/looking for acute TECHNIQUE: Ultrasound abdomen performed using standard protocol. COMPARISON: US US HERNIA from 08/06/[address] ABDOMEN PELVIS W from 08/28/2022 FINDINGS: There is no ascites evident. LIVER: There are no hepatic lesions evident nor dilatation of intrahepatic ducts. GALLBLADDER/BILIARY: Multiple gallstones are noted in the gallbladder lumen. Also sludge. Gallbladd er wall thickness is upper normal. No pericholecystic fluid. Patient apparently not tender over thi s area. The common hepatic duct isnot dilated, measuring 3-4mm at the level of alberto hepatis. PANCREAS: There is no evidence of pancreatic mass nor dilatation of the pancreatic duct. RIGHT KIDNEY:No evidence of solid mass, calculus, nor hydronephrosis. No cortical cysts evident. ABDOMINAL AORTA AND IVC: Visualized portions exhibit normal caliber. IMPRESSION: 1. Cholelithiasis. There calculi and sludge in the gallbladder lumen. Gallbladder mildly distended . Gallbladder wall thickness is upper normal. There is no pericholecystic fluid. Common hepatic du ct is not dilated. 2. No focal findings in the liver, pancreas, and right kidney. 3. No other right upper quadrant findings and there is no ascites. Gallstones and sludge. DATA REPOSITORY:
[2022-09-01] MEDS: HYDROmorphone 2 MG/ML VIAL 1 MG IVP ×2 (06:34→20:30)
[2022-09-01] MEDS: Normal Saline Flush 10 ML SYR IVP ×3 (06:34→21:15)
[2022-09-01] MEDS: Mylanta Suspension 30 ML CUP PO ×2 (08:15→14:54)
[2022-09-01] MEDS: Acetaminophen 325 MG TAB PO ×2 (08:16→15:12)
[2022-09-01] MEDS: Apixaban 5 MG TAB PO (08:17)
[2022-09-01] MEDS: Pantoprazole 40 MG VIAL IVP (08:18)
[2022-09-01] MEDS: Sertraline 100 MG TAB PO (08:19)
[2022-09-01] MEDS: risperiDONE 0.5 MG TAB PO ×2 (08:19→20:20)
--- NOTE | 2022-09-01 09:23 | NUR.NOTE ---
Nursing Note: at 0830, notified charge nurse that pt was not on telemetry and was receiving d5 1/2 with 20 mEq of potassium. she states that she will speak with the primary
--- NOTE | 2022-09-01 10:24 | NUR.NOTE ---
Nursing Note: endorsing abd pain with explosive diarrhea. pt was found with iv disconnected and in the restroom.
[2022-09-01 10:54] LABS: Abs Immature Grans 0.05 10^3/uL (0.0-0.06); Absolute Basophil Count 0.06 10^3/uL (0.0-0.2); Absolute Eosinophil Count 0.27 10^3/uL (0.0-0.7); Absolute Lymphocyte Count 3.96 10^3/uL (1.2-3.4); Absolute Monocyte Count 1.39 10^3/uL (0.1-0.8); Absolute Neutrophil Count 7.13 10^3/uL (1.2-6.7); Basophils % 0.5; Eosinophils % 2.1; HGB 15.4 g/dL (13.5-17.5); Immature Grans % 0.4; Lymphocytes % 30.8; MCH 30.6 pg (27.0-33.0); MCHC 33.5 % (32.0-36.0); MCV 92 fL (80-95); MPV 10.6 fL (8.0-11.0); Monocytes % 10.8; Neutrophils % 55.4; Platelet Count 435 10^3/uL (130-400); RBC 5.03 10^6/uL (4.36-5.78); RDW 15.1 % (11.8-14.1); RDW-SD 50.4 fL; WBC 12.87 10^3/uL (4.4-10.8)
[2022-09-01 11:09] LABS: ALT 32 U/L (16-63); AST 30 U/L (15-37); Alkaline Phosphatase 71 U/L (46-116); Anion Gap 9.7 mmol/L (3-11); BUN 6 mg/dL (7-18); Bilirubin, Total 1.9 mg/dL (0.2-1.0); CO2 25.3 mmol/L (21.0-32.0); CREATININE 1.1 mg/dL (0.70-1.30); Calcium 9.2 mg/dL (8.5-10.1); Chloride 104 mmol/L (98-107); Estimated GFR 88.67 (mL/min/1.73m2); Glucose 102 mg/dL (74-106); Sodium 139 mmol/L (136-145); Total Protein 8.1 g/dL (6.4-8.2)
--- NOTE | 2022-09-01 11:11 | NUR.NOTE ---
Nursing Note: this rn went into reassess pt vs and administer medications but pt was in the restroom. when this rn asked if pt was having a bm he states no more liquid, im just sitting here. this rn asked pt if he could come out so that meds and vs can be provided. pt refused and states i just want you guys to send me home, youre not doing anything for me anyway. this rn educated pt on new lab resutls and new medications ordered for pain and diarrhea. pt is refusing at this time. this rn asked if there was anything that can be done for pt at this time and he states to return in 10 min. this rn stepped out of the room and notified charge nurse of situation
[2022-09-01] MEDS: Sucralfate 1 GM TAB PO ×3 (11:40→20:21)
[2022-09-01] MEDS: Famotidine 20 MG/2 ML VIAL IVP ×2 (11:40→21:15)
[2022-09-01] MEDS: PANTOPRAZOLE 80 MG in Normal Saline 100 ML 10 MG IV ×2 (12:07→22:16)
--- NOTE | 2022-09-01 12:09 | PDOC.CMPRO ---
- If Service Date Differs Date of service: 09/01/22 Time of Service: 12:09 Care Management Progress Note S/O: Golden was sitting up in bed when CM met with him. He stated that he is having diarrhea, and he is unclear what his discharge goals are. Per provider, [facility] was consulted yesterday and do not feel that urgent transfer is indicated at this time. The recommendation is for Golden to have outpatient follow up, as tbili has improved. Per surgical consult, additional tests ordered, which are still pending at this time. CM will continue to follow. A: 36 year old male admitted to [facility] on 08/31/22 for Gastroenteritis, Upper Abdominal Pain P: Golden is being closely monitored with supportive care at this time. Anticipate he will return home with outpatient hepatology follow up once he is medically cleared. His father will likely drive him home via private vehicle. CM will continue to follow.
--- NOTE | 2022-09-01 13:04 | W.PM.PROGNOT ---
Date of Service Date of service: 09/01/22 Time of Service: 13:04 Assessment and Plan Assessment and plan (1) Cholelithiasis without obstruction: Status: Acute Assessment and plan: Chronic with no evidence of acute cholecystitis or pancreatitis and no evidence of dilatation of the common bile duct but consider ultrasound. MRCP to be considered but unlikely gallbladder. surgery following ultrasound from today: IMPRESSION: 1.? Cholelithiasis.? There calculi and sludge in the gallbladder lumen.? Gallbladder mildly distended.? Gallbladder wall thickness is upper normal.? There is no pericholecystic fluid.? Common hepatic duct is not dilated. 2.? No focal findings in the liver, pancreas, and right kidney. 3.? No other right upper quadrant findings and there is no ascites.? Gallstones and sludge. (2) Elevated bilirubin: Status: Chronic Assessment and plan: Chronic and possibly Guilbert's disease but with his cholelithiasis and recurrent abdominal symptoms passage of stones and transient obstruction needs to be considered . surgery consulted and following normal lipase. hepatitis panel negative tbili normalized to his baseline and stable consider liver biopsy. case discussed with [facility] hepatology Dr Jones on 08/31, case reviewed and recommendations for outpatient follow up as tbili improved. indirect bili, juaquin test, direct and indirect, and peripheral smear ok. (3) Upper abdominal pain: Status: Acute Assessment and plan: left sided, thought initially to be associated with gastroenteritis and less likely with his cholelithiasis and gallbladder. Symptomatic care with bowel rest, IV hydration and repletion of electrolytes as needed. Pain management with Dilaudid IV. continue to advance diet as tolerated which he is not tolerating. . anticipate discharge home when taking PO. (4) Anxiety: Status: Chronic Assessment and plan: Clonazepam is being taken at home but he will have Ativan as needed during the hospital stay. Continue his sertraline. (5) Acquired hypercoagulable state: Assessment and plan: Continue Eliquis. (6) Hypokalemia due to excessive gastrointestinal loss of potassium: Status: Resolved Assessment and plan: continue to replete and follow. magnesium normal limits discussed with DR Hill Subjective Subjective Patient reports: still having pain, diarrhea and afebrile; denies tolerating liquids well, tolerating a regular diet or shortness of breath Exam Const General: disheveled and frail appearing Nutritional Appearance: obese Orientation: alert, awake and oriented x3 HENMT Head: atraumatic Resp Effort & Inspection: normal respiratory effort Cardio Rate: regular rate GI Inspection: normal to inspection Palpation: soft and tender in the LUQ Neuro General: patient alert, patient awake and patient oriented x3 Cognition: normal cognition Extrem General: normal to inspection and full ROM Psych Speech and Movement: delayed speech Affect: blunted Attitude: cooperative Objective Last Vital Signs Temp 37.2 C 09/01/22 11:24 Pulse 88 09/01/22 11:24 Resp 18 09/01/22 11:24 BP 137/85 09/01/22 11:24 Pulse Ox 92 09/01/22 11:24 Laboratory Results - last 24 hr 08/29/22 08/31/22 09/01/22 06:15 19:21 10:30 WBC RBC Hgb Hct MCV MCH MCHC RDW Plt Count MPV Immature Gran % Neutrophils % Lymphocytes % Monocytes % Eosinophils % Basophils % Nucleated RBC % Absolute Neutrophils Absolute Lymphocytes Absolute Monocytes Absolute Eosinophils Absolute Basophils Sodium 139 Potassium 4.0 Chloride 104 Carbon Dioxide 25.3 Anion Gap 9.7 BUN 6 L Creatinine 1.1 Est GFR (CKD-EPI 2020) 88.67 Glucose 102 Calcium 9.2 Total Bilirubin 1.9 H AST 30 ALT 32 Alkaline Phosphatase 71 Ammonia 28 Total Protein 8.1 Albumin 4.0 Pathology Consult Spec 09/01/22 10:30 WBC 12.87 H RBC 5.03 Hgb 15.4 Hct 46.0 MCV 92 MCH 30.6 MCHC 33.5 RDW 15.1 H Plt Count 435 H MPV 10.6 Immature Gran % 0.4 Neutrophils % 55.4 Lymphocytes % 30.8 Monocytes % 10.8 Eosinophils % 2.1 Basophils % 0.5 Nucleated RBC % 0.0 Absolute Neutrophils 7.13 H Absolute Lymphocytes 3.96 H Absolute Monocytes 1.39 H Absolute Eosinophils 0.27 Absolute Basophils 0.06 Sodium Potassium Chloride Carbon Dioxide Anion Gap BUN Creatinine Est GFR (CKD-EPI 2020) Glucose Calcium Total Bilirubin AST ALT Alkaline Phosphatase Ammonia Total Protein Albumin Pathology Consult Spec Time Spent with Patient Time Spent with Patient: 25-34 minutes Time was spent: preparing to see the patient(eg.review tests), obtaining and/or reviewing separately otained hiistory, ordering medications,tests, procedures, indepentently interpreting results and counseling the patient
[2022-09-01] MEDS: POTASSIUM CHLORIDE/D5-0.45NACL 1,000 ML 75 MEQ IV (13:30)
--- NOTE | 2022-09-01 14:03 | CHAPLAIN ---
Golden was sitting at the edge of the bed when I visited. His nurse was at the computer. I introduced myself and explained my role. Golden didn't speak while I was visiting and explaining my role. He nodded his head slightly at appropriate times. I offered support and let him know how to reach me if he'd like more conversation.
[2022-09-01] MEDS: LORazepam 1 MG TAB PO (15:11)
--- NOTE | 2022-09-01 15:16 | NUR.NOTE ---
Nursing Note: pt presents calm and willing to stay for further treatment. states that he understands plan and was feeling overwhelmed with no new results. pt has 2 iv drips infusing at this time. denies questions. vss. acetaminophen administered for low grade fever. no acute distress. denies any needs at this time
--- NOTE | 2022-09-01 16:19 | NUR.NOTE ---
Nursing Note: @[id number] this rn and PATIENT REGISTRATION SPECIALIST idania went into evaluate pt and provide update. provider assessed pt. pt denies any questions to provider. @1609 pt walked in jaram[place] x2 laps. no acute distress. denies dizziness.
--- NOTE | 2022-09-01 17:07 | W.PM.PROGNOT ---
Date of Service Date of service: 09/01/22 Time of Service: 09:00 Assessment and Plan Assessment and plan (1) Gastroenteritis: Status: Acute Assessment and plan: pt is on maximium medical therapy w/ IV protonix/pepcid and po carafate (2) Cholelithiasis without obstruction: Status: Acute Assessment and plan: US IMPRESSION: 1.? Cholelithiasis.? There calculi and sludge in the gallbladder lumen.? Gallbladder mildly distended.? Gallbladder wall thickness is upper normal.? There is no pericholecystic fluid.? Common hepatic duct is not dilated. 2.? No focal findings in the liver, pancreas, and right kidney. 3.? No other right upper quadrant findings and there is no ascites.? Gallstones and sludge. -see labs -Patient has been struggling this for quite some time and does need to get have his gallbladder removed. Unfortunately he is not a candidate for anesthesia at [facility]. He does have an appointment down at [facility] on 09/23. -If Dr. Yeboah thinks it is appropriate we will plan an EGD in a.m. on 09/02. He is n.p.o. after midnight and his apixaban has been held. Otherwise consider transfer to [facility] for gallbladder removal. Continue supportive care. 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 ? He had three hernia repairs done.? He has had x2 cases of saddle emobolism.? One spontaeously (2018) and another following and partial thyroidectomy? (2019).? The Thyroid nodule was benign.? Both times he had massive PEs and massive clot burden.? He was seen by hematology and he is anticardiolipin antibody positive.? 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 They recommended that he stay on chronic anticoagulation.? A vena cava filter was placed.? This was placed in 2019 and it is a cook [place]? filter in the infrarenal position.? (The patient family member said that the patient could not have an MRI because of the filter.? We will check with MRI in a.m..? Although, with his hx of anxiety, he may not be able to tolerate being in the MRI scanner).? Both times when he had the emboli, he had significant right heart strain, dilation of the RV and some degree of cardiac compromise.? I do not see that he has had an echo since 2019.? 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 He has had no problems with anesthesia in the past. (8) GERD with esophagitis: Status: Acute (9) PAH (pulmonary artery hypertension): (10) Pulmonary embolism, bilateral: (11) Tricuspid regurgitation: (12) Esophagitis determined by endoscopy: (13) Bipolar disorder: (14) Acquired hypercoagulable state: Subjective Subjective Interval history since last seen: pt was admitted w/ reflux/nausea and luq pain. He is well known to the surgical service. He has a longstanding history of reflux and symptomatic gallstones. He has been down to [facility] twice for gallbladder removal and they have not done surgery on him. He has a history of spherocytosis and pulmonary embolus and right heart failure. He has not had a echo in the last 3 years. He does have a vena cava filter in. He is on apixaban as a home medication. He did receive an a.m. dose today. We will hold this today. I have done an EGD on him in the past and he does have severe esophagitis. He is on a PPI at home. Patient states he has been trying to do better as far as diet and lifestyle. Patient has a longstanding history of gallstones. He has always had left upper quadrant pain nausea and diarrhea. He has a low-grade white count of 12. He had an ultrasound today which did show the gallbladder wall at the upper limits of normal. He does have an appointment [facility] on 09/23 for consultation for consideration of gallbladder removal. I have reviewed his case with anesthesia in the past and due to his spherocytosis is not a candidate for surgery at [facility]. Problem is that when he goes to see physicians and he is not familiar with is that he will not talk to them and he will allow them to examine him, and they do not have a clear understanding of what is going on with him. He still having a significant amount of nausea and acid reflux. Despite putting him on a PPI drip and Carafate. He did tell nursing that Carafate did not help. He has also been having voluminous diarrhea. This evening he is having some mild upper right quadrant pain as well. pt is a notoriously poor hysterian due to his anxiety. Exam GI Other: upper abdominal pain good bs. no peritonitis. Objective Last Vital Signs Temp 37.3 C 09/01/22 15:12 Pulse 80 09/01/22 14:13 Resp 18 09/01/22 14:13 BP 137/77 09/01/22 14:13 Pulse Ox 93 09/01/22 14:13 Laboratory Results - last 24 hr 08/29/22 08/31/22 09/01/22 06:15 19:21 10:30 WBC RBC Hgb Hct MCV MCH MCHC RDW Plt Count MPV Immature Gran % Neutrophils % Lymphocytes % Monocytes % Eosinophils % Basophils % Nucleated RBC % Absolute Neutrophils Absolute Lymphocytes Absolute Monocytes Absolute Eosinophils Absolute Basophils Sodium 139 Potassium 4.0 Chloride 104 Carbon Dioxide 25.3 Anion Gap 9.7 BUN 6 L Creatinine 1.1 Est GFR (CKD-EPI 2020) 88.67 Glucose 102 Calcium 9.2 Total Bilirubin 1.9 H AST 30 ALT 32 Alkaline Phosphatase 71 Ammonia 28 Total Protein 8.1 Albumin 4.0 Stool Campylobacter PCR Stool Salmonella PCR Stool Shigella PCR Shiga Toxin (PCR) Pathology Consult Spec 09/01/22 09/01/22 10:30 13:20 WBC 12.87 H RBC 5.03 Hgb 15.4 Hct 46.0 MCV 92 MCH 30.6 MCHC 33.5 RDW 15.1 H Plt Count 435 H MPV 10.6 Immature Gran % 0.4 Neutrophils % 55.4 Lymphocytes % 30.8 Monocytes % 10.8 Eosinophils % 2.1 Basophils % 0.5 Nucleated RBC % 0.0 Absolute Neutrophils 7.13 H Absolute Lymphocytes 3.96 H Absolute Monocytes 1.39 H Absolute Eosinophils 0.27 Absolute Basophils 0.06 Sodium Potassium Chloride Carbon Dioxide Anion Gap BUN Creatinine Est GFR (CKD-EPI 2020) Glucose Calcium Total Bilirubin AST ALT Alkaline Phosphatase Ammonia Total Protein Albumin Stool Campylobacter PCR Cancelled Stool Salmonella PCR Cancelled Stool Shigella PCR Cancelled Shiga Toxin (PCR) Cancelled Pathology Consult Spec Time Spent with Patient Time Spent with Patient: 35-49 minutes Time was spent: preparing to see the patient(eg.review tests), obtaining and/or reviewing separately otained hiistory, ordering medications,tests, procedures, referring, communicating with other health child care education coordinator, indepentently interpreting results, counseling the patient and care coordination
[2022-09-02] VITALS (7 sets, daily range): BP systolic 114–152; BP diastolic 66–84; PULSE 78–96; RESP 16–20; TEMP 37.1–37.9; O2SAT 92–97
[2022-09-02] MEDS: LORazepam 1 MG TAB PO ×2 (03:40→08:19)
--- NOTE | 2022-09-02 03:56 | NUR.NOTE ---
Patient's IV infiltrated and he refused another IV. Patient had IV Protonix and IV Dr. Hines contacted. Protonix ordered IV b.i.d. D/C potassium. Repeat CMP and mag in the AM. Nursing Note:
[2022-09-02] MEDS: HYDROmorphone 2 MG/ML VIAL 1 MG IVP (04:20)
[2022-09-02] MEDS: Sucralfate 1 GM TAB PO ×4 (04:26→20:31)
[2022-09-02] MEDS: Hyaluronidase 150 UNITS VIAL 10 UNITS IJ (04:26)
[2022-09-02 06:38] LABS: Abs Immature Grans 0.03 10^3/uL (0.0-0.06); Absolute Basophil Count 0.06 10^3/uL (0.0-0.2); Absolute Eosinophil Count 0.13 10^3/uL (0.0-0.7); Absolute Lymphocyte Count 2.67 10^3/uL (1.2-3.4); Absolute Monocyte Count 1.34 10^3/uL (0.1-0.8); Absolute Neutrophil Count 6.02 10^3/uL (1.2-6.7); Basophils % 0.6; Eosinophils % 1.3; HCT 41.8 % (40.0-50.0); HGB 14.1 g/dL (13.5-17.5); Immature Grans % 0.3; MCH 31.4 pg (27.0-33.0); MCHC 33.7 % (32.0-36.0); MCV 93 fL (80-95); Monocytes % 13.1; Neutrophils % 58.7; Platelet Count 394 10^3/uL (130-400); RBC 4.49 10^6/uL (4.36-5.78); RDW 15.1 % (11.8-14.1); WBC 10.25 10^3/uL (4.4-10.8)
[2022-09-02 06:56] LABS: ALT 30 U/L (16-63); AST 27 U/L (15-37); Albumin 3.6 g/dL (3.4-5.0); Alkaline Phosphatase 63 U/L (46-116); Anion Gap 8.8 mmol/L (3-11); BUN 6 mg/dL (7-18); Bilirubin, Total 1.4 mg/dL (0.2-1.0); CO2 27.2 mmol/L (21.0-32.0); CREATININE 1.1 mg/dL (0.70-1.30); Calcium 8.9 mg/dL (8.5-10.1); Chloride 104 mmol/L (98-107); Estimated GFR 88.67 (mL/min/1.73m2); GGT 19 U/L (15-85); Glucose 95 mg/dL (74-106); Lipase 70 U/L (16-77); Magnesium 2.2 mg/dL (1.8-2.4); Sodium 140 mmol/L (136-145); Total Protein 7.4 g/dL (6.4-8.2)
[2022-09-02] MEDS: Sertraline 100 MG TAB PO (08:18)
[2022-09-02] MEDS: Normal Saline Flush 10 ML SYR IVP ×2 (08:19→21:10)
[2022-09-02] MEDS: risperiDONE 0.5 MG TAB PO ×2 (08:19→20:28)
[2022-09-02] MEDS: Pantoprazole 40 MG VIAL IVP ×2 (08:22→21:09)
--- NOTE | 2022-09-02 08:49 | NUR.NOTE ---
Nursing Note: returned from OR. aox4. no acute distress. vss. siu. denies pain.
--- NOTE | 2022-09-02 09:54 | CMPROGNOTE_ITS ---
- If Service Date Differs Date of service: 09/02/22 Time of Service: 09:54 Care Management Progress Note S/O: Golden is lying in bed when CM met with him. He is awake and engages in conversation easily today. Per pt, his right arm hurts and is swollen because of potassium, and his left arm is red and hard because of another IV. The areas were being iced, however Golden removed the ice pack wraps to show this poem writer and his concerns were assessed by the Hospitalist/Deana and primary RN/Maday and ice was re-applied. 1400: Per Hospitalist, surgical does not feel a EGD is appropriate at this setting due to risks factors. Golden is scheduled for an EGD at [facility] on 09/23/22 which per Golden is too long to wait, and he was under the impression that the surgeon wanted him to have the scope sooner than the . Golden is clearly frustrated and shares that if he's not going to have the test here this admission, or be transferred to another hospital then he should go home. Golden received education about limitations in regards to transfers. Golden would like to talk to the surgeon himself and is currently refusing to eat anything, even jello. Per hospitalist, Golden is not medically cleared to discharge until her is tolerating PO diet, if he chooses to leave it would be AMA. CM will follow. A: 36 year old male admitted to [facility] on 08/31/22 for Gastroenteritis, Upper Abdominal Pain P: Golden is being closely monitored with supportive care at this time. Anticipate he will return home with outpatient hepatology follow up once he is medically cleared. His father will likely drive him home via private vehicle. CM will continue to follow.
--- NOTE | 2022-09-02 10:18 | NS.NUTBLAN_ITS ---
Date of service: 09/02/22 Time of Service: 10:18 Nutritional Consult ASSESSMENT: Golden has had no PO intake for the last 5 days, either by refusal or due to NPO status secondary to n/v/d. PMH: cholelithiasis, esophagitis, sperocytosis,pulm embolism, right heart failure. BMI indicates class 2 obesity. Has appt 09/23/22 for gall bladder removal at [facility] as not a surgical candidate at [facility]. In view of extended lack of macronutrient intake for over 5 days, recommend consider nutritional support as part of supportive care. Estimated Needs (based on adjusted body weight in view of BMI) 2158 kcal, 86-90 g protein, 2100 ml fluid NUTRITIONAL DIAGNOSIS: inadequate intake of macrnoutrient secondary to n/v/d INTERVENTION: If Golden continues to refuse meals or becomes NPO consider either option for nutrition support: 1. elemental tube feeding: Vital 1.2 @ 70 cc/hour , flush 250 ml q 6 hours providing a total of 2016 kcal, 92 g protein, 2205 ml fluid 2. TPN: Clinimix(11/09) 2000 ml , 250 ml 20% lipid providing toal of 1990 kcal, 100 g protein, 55 g fat MONITORING AND EVALUATION: labs, weight, nutrient intake Time Spent in Nutritional Counseling and Treatment: 0
[2022-09-02] MEDS: Famotidine 20 MG/2 ML VIAL IVP ×2 (10:50→21:10)
--- NOTE | 2022-09-02 12:48 | PGE_ITS ---
Date of Service Date of service: 09/02/22 Time of Service: 12:48 Assessment and Plan Assessment and plan (1) Cholelithiasis without obstruction: Status: Acute Assessment and plan: Chronic with no evidence of acute cholecystitis or pancreatitis and no evidence of dilatation of the common bile duct surgery following US IMPRESSION: 1.? Cholelithiasis.? There calculi and sludge in the gallbladder lumen.? Gallbladder mildly distended.? Gallbladder wall thickness is upper normal.? There is no pericholecystic fluid.? Common hepatic duct is not dilated. 2.? No focal findings in the liver, pancreas, and right kidney. 3.? No other right upper quadrant findings and there is no ascites.? Gallstones and sludge. (2) Elevated bilirubin: Status: Chronic Assessment and plan: normal lipase. hepatitis panel negative tbili normalized to his baseline and stable indirect bili, juaquin test, direct and indirect, and peripheral smear ok. (3) Upper abdominal pain: Status: Acute Assessment and plan: Continue symptomatic care with bowel rest, IV hydration and repletion of electrolytes as needed. Pain management with Dilaudid IV. continue to advance diet as tolerated which he is not tolerating. . anticipate discharge home when taking PO. (4) Anxiety: Status: Chronic Assessment and plan: Clonazepam is being taken at home but he will have Ativan as needed during the hospital stay. Continue his sertraline. (5) Acquired hypercoagulable state: Assessment and plan: Eliquis held, enoxaparin started per request of surgery. (6) Hypokalemia due to excessive gastrointestinal loss of potassium: Status: Resolved Assessment and plan: continue to replete and follow. magnesium normal limits discussed with Dr Hill Subjective Subjective Patient reports: no new complaints, tolerating liquids well, bowel movement and afebrile; denies diarrhea, nausea, vomiting or shortness of breath Interval history since last seen: Golden states he continues to have a lot of acid. He was NPO for EGD; see surgeon's note; it was cancelled. Golden is voicing his frustration with waiting for his appointment at [facility]. He is in agreement to staying in the hospital at this time, although he asks to go home one moment and the next asks to go to another hospital. He knows that he is not going to be transferred. Discussion related to a barium swallow v upper GI; surgery is in discussion with him regading his plan of care - see their note Exam Const General: disheveled and frail appearing Nutritional Appearance: obese Orientation: alert, awake and oriented x3 HENMT Head: atraumatic Resp Effort & Inspection: normal respiratory effort Cardio Rate: regular rate GI Inspection: normal to inspection Palpation: soft and tender in the LUQ Neuro General: patient alert, patient awake and patient oriented x3 Cognition: normal cognition Extrem General: normal to inspection and full ROM Psych Speech and Movement: delayed speech Affect: blunted Attitude: cooperative Objective Last Vital Signs Temp 37.4 C 09/02/22 12:31 Pulse 96 H 09/02/22 12:31 Resp 18 09/02/22 12:31 BP 114/68 09/02/22 12:31 Pulse Ox 97 09/02/22 12:31 Laboratory Results - last 24 hr 09/01/22 09/02/22 09/02/22 13:20 06:12 06:12 WBC 10.25 RBC 4.49 Hgb 14.1 Hct 41.8 MCV 93 MCH 31.4 MCHC 33.7 RDW 15.1 H Plt Count 394 MPV 10.0 Immature Gran % 0.3 Neutrophils % 58.7 Lymphocytes % 26.0 Monocytes % 13.1 Eosinophils % 1.3 Basophils % 0.6 Nucleated RBC % 0.0 Absolute Neutrophils 6.02 Absolute Lymphocytes 2.67 Absolute Monocytes 1.34 H Absolute Eosinophils 0.13 Absolute Basophils 0.06 Sodium 140 Potassium 4.0 Chloride 104 Carbon Dioxide 27.2 Anion Gap 8.8 BUN 6 L Creatinine 1.1 Est GFR (CKD-EPI 2020) 88.67 Glucose 95 Calcium 8.9 Magnesium 2.2 Total Bilirubin 1.4 H GGT 19 AST 27 ALT 30 Alkaline Phosphatase 63 Total Protein 7.4 Albumin 3.6 Lipase 70 Stool Campylobacter PCR Cancelled Stool Salmonella PCR Cancelled Stool Shigella PCR Cancelled Shiga Toxin (PCR) Cancelled Time Spent with Patient Time Spent with Patient: 25-34 minutes Time was spent: preparing to see the patient(eg.review tests), obtaining and/or reviewing separately otained hiistory, ordering medications,tests, procedures, referring, communicating with other health medicare specialist, indepentently interpreting results, counseling the patient and care coordination
--- NOTE | 2022-09-02 14:32 | NUR.NOTE ---
Nursing Note: @1422 notified by charge that new lovenox order was placed. this rn inquired about current po blood thinner order, and there was no order to cancel medication. medication remains on hold. will continue to monitor
--- NOTE | 2022-09-02 15:23 | NUR.NOTE ---
Nursing Note: @1530 spoke with sister deven and provided an update on poc. sister was notified of pts thoughts of leaving [facility] and not being evaluated by surgeon tomorrow; of pt increased anxiety r/t not being d/c today; of reason why egd was d/c'd and why having a gall bladder removal would be inappropriate for this facility' of bilat infiltrated iv sites and pt pain r/t . sister verbalizes understanding denies any questions.
--- NOTE | 2022-09-02 17:37 | PGE_ITS ---
Date of Service Date of service: 09/02/22 Time of Service: 12:30 Assessment and Plan Assessment and plan (1) Cholelithiasis without obstruction: Status: Acute Assessment and plan: I explained to Golden my hesitancy to proceed with EGD today, based on his medical comorbidities, and concerns over the risks of anesthesia and sedation. Essentially, I am having a hard time building a differential diagnosis that would justify EGD based on the history and physical exam that I can get from the chart. I explained that I have talked to Dr. Vu several times over the course of the day, and we have discussed not only these risks and benfits, but those of other tests as well. Based on my limited experience with Golden, I think the safest course of action at this point is to defer the EGD for the day, and revisit the discussion tomorrow when Dr. Vu is available. I think Golden has an understanding of this explanation, but he limits most of his responses to single word answers, or simple head-nodding which makes shared decision making challenging. Subjective Subjective Interval history since last seen: Golden does not answer many of my questions. From the bedside nursing staff, it sounds like he continues to complain of nausea, vomiting, and diarrhea. He is frustrated about an EGD that will not be performed today. Objective Last Vital Signs Temp 99.0 F 09/02/22 14:23 Pulse 81 09/02/22 14:23 Resp 18 09/02/22 14:23 BP 152/74 H 09/02/22 14:23 Pulse Ox 94 09/02/22 14:23 Laboratory Results - last 24 hr 08/29/22 09/02/22 09/02/22 06:15 06:12 06:12 WBC 10.25 RBC 4.49 Hgb 14.1 Hct 41.8 MCV 93 MCH 31.4 MCHC 33.7 RDW 15.1 H Plt Count 394 MPV 10.0 Immature Gran % 0.3 Neutrophils % 58.7 Lymphocytes % 26.0 Monocytes % 13.1 Eosinophils % 1.3 Basophils % 0.6 Nucleated RBC % 0.0 Absolute Neutrophils 6.02 Absolute Lymphocytes 2.67 Absolute Monocytes 1.34 H Absolute Eosinophils 0.13 Absolute Basophils 0.06 Sodium 140 Potassium 4.0 Chloride 104 Carbon Dioxide 27.2 Anion Gap 8.8 BUN 6 L Creatinine 1.1 Est GFR (CKD-EPI 2021) 88.67 Glucose 95 Calcium 8.9 Magnesium 2.2 Total Bilirubin 1.4 H GGT 19 AST 27 ALT 30 Alkaline Phosphatase 63 Total Protein 7.4 Albumin 3.6 Lipase 70 Miscellaneous Test See CommentS Time Spent with Patient Time Spent with Patient: 25-34 minutes Time was spent: preparing to see the patient(eg.review tests), referring, communicating with other health career development facilitator, counseling the patient and care coordination
--- NOTE | 2022-09-02 18:36 | NUR.NOTE ---
Nursing Note: @5110 surgeon timo and nurse quality shirin in room discussing poc. pt is stand off elina and difficult to communicate with. extreme amount of encouraging by this rn to respond to doctors was necessary. pt seems to verbalize understanding of barium swallow and staying to be assessed by surgeon jacob in the morning. pt is refusing lovenox injection iv ativan. and is stating that he wants his iv out but importance of need for iv was educated and pt verbalizes understanding. pt is denying any needs at this time
--- NOTE | 2022-09-02 18:41 | NUR.NOTE ---
Nursing Note: @1815 pt was encourged by this rn to intake oral fluids or any oral intake. pt is still refusing at it makes my stomach bubble and that hurts. pt is stating that he has not had any bm today and only had 2 episodes of urine output that were unmeasured as pt used the toilet instead of the urinal.
[2022-09-02 23:09] LABS: Campylobacter PCR Negative (Negative); Salmonella PCR Negative (Negative); Shiga Toxin PCR Negative (Negative); Shigella/Enteroinvasive Ecoli Negative (Negative)
[2022-09-03] MEDS: Sucralfate 1 GM TAB PO ×4 (03:07→21:48)
[2022-09-03 03:34] VITALS: BP 123/84; PULSE 79; RESP 17; TEMP 36.9; O2SAT 95
[2022-09-03] MEDS: LORazepam 1 MG TAB PO (03:55)
[2022-09-03] MEDS: HYDROmorphone 2 MG/ML VIAL 1 MG IVP ×3 (04:14→21:47)
[2022-09-03 06:38] LABS: Abs Immature Grans 0.02 10^3/uL (0.0-0.06); Absolute Basophil Count 0.06 10^3/uL (0.0-0.2); Absolute Eosinophil Count 0.26 10^3/uL (0.0-0.7); Absolute Monocyte Count 1.31 10^3/uL (0.1-0.8); Absolute Neutrophil Count 5.12 10^3/uL (1.2-6.7); Basophils % 0.6; Eosinophils % 2.7; HGB 14.6 g/dL (13.5-17.5); Immature Grans % 0.2; Lymphocytes % 30.7; MCH 30.7 pg (27.0-33.0); MCHC 33.2 % (32.0-36.0); MCV 92 fL (80-95); MPV 10.3 fL (8.0-11.0); Monocytes % 13.4; Neutrophils % 52.4; Platelet Count 445 10^3/uL (130-400); RBC 4.76 10^6/uL (4.36-5.78); RDW 14.9 % (11.8-14.1); RDW-SD 51.1 fL; WBC 9.77 10^3/uL (4.4-10.8)
[2022-09-03 06:55] LABS: Anion Gap 8.6 mmol/L (3-11); BUN 9 mg/dL (7-18); CO2 27.4 mmol/L (21.0-32.0); CREATININE 1.1 mg/dL (0.70-1.30); Chloride 102 mmol/L (98-107); Estimated GFR 88.67 (mL/min/1.73m2); Glucose 105 mg/dL (74-106); Magnesium 2.3 mg/dL (1.8-2.4); Potassium 3.6 mmol/L (3.5-5.1); Sodium 138 mmol/L (136-145)
[2022-09-03 08:30] VITALS: BP 113/73; PULSE 96; RESP 20; O2SAT 94
[2022-09-03] MEDS: risperiDONE 0.5 MG TAB PO ×2 (08:33→19:46)
[2022-09-03] MEDS: Pantoprazole 40 MG VIAL IVP ×2 (08:33→19:46)
[2022-09-03] MEDS: Sertraline 100 MG TAB PO (08:33)
--- NOTE | 2022-09-03 08:49 | CMPROGNOTE_ITS ---
- If Service Date Differs Date of service: 09/03/22 Time of Service: 08:49 Care Management Progress Note S/O: Golden is lying in bed when CM met with him. He is awake and engages in conversation with this race and sports book writer. He is agreeable to having the Barium Swallow tomorrow as planned. He also agrees to avoid nuts. Per pt, the nurse wanted him to eat and he thought nuts were supposed to be good for you, CM provided education. Golden is planning on going to [facility] as an outpatient on 09/23 as previously scheduled but wants to know what to do about the stomach pain, burping and cough in the meantime? Golden then reports that he's developed a cough since being in the ICU and feels hot on and off. CM notified his Primary RN. Per Dr. Vu, Golden has gone to [facility], and wouldn't engage with the Surgeon or let them evaluate him. CM spoke with his sister Madina and she agrees to go to Golden's 09/23/22 appointment at [facility] to support during the visit. She also notes that her and Golden have back to back appointments at that office. Golden is also fine with this plan and expresses that he wants Yamel to go with him. CM also let Golden know that it is really important to talk to the surgeon about his symptoms and he agrees. CM will continue to follow. A: 36 year old male admitted to [facility] on 08/31/22 for Gastroenteritis, Upper Abdominal Pain P: Golden is being closely monitored with supportive care at this time. A Barium Swallow is planned for tomorrow 09/04/22. Anticipate, Golden will return home once he is medically cleared via private vehicle with father. Golden will follow up with [facility] on 09/23/22 as previously scheduled. His sister Nilda is planning on accompany him during this visit. CM will continue to follow.
[2022-09-03 10:30] LABS: C Diff PCR Negative (Negative)
[2022-09-03] MEDS: Famotidine 20 MG/2 ML VIAL IVP ×2 (10:44→21:47)
[2022-09-03] MEDS: Ondansetron O.D.T. 4 MG TABEF PO ×3 (10:44→21:48)
--- NOTE | 2022-09-03 11:38 | W.PM.PROGNOT ---
Date of Service Date of service: 09/03/22 Time of Service: 09:00 Assessment and Plan Assessment and plan (1) Cholelithiasis without obstruction: Status: Acute Assessment and plan: -cont PPI/H2 -schedule zofran -I called and talked to [facility]. They will not take pt in transfer. They have no other openings in surgery clinic until 09/23 w/ Dr. Salazar (who is male) Pt has severe issues w/ anxiety and has difficult time with male providers secondary to his severe anxiety/Bipolar D/O. -pt given information on diet choices. -pt does need to have his Gb removed, but he does not have an acute infection at this time. He does not have a fever or WBC. LFT's are normal. I cannot seem to get him in sooner than his previously scheduled appt. -Pt has been down to [facility] twice and had issues w/ communication (he wouldn't not speak to physician or allow examination). I think it's important that he has a family practice doctor attendant this appointment with him to encourage him to speak. I d/w CM and they will contact his family to ensure that someone can accompany him to this appt. 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 He was suppose to be on clears and ate some nuts and feels horrible today - pain and diarrhea. He is not any better despite being on PPI/H2 lila and antiemetics echo- pd We d/w anesthesia doing an EGD. they do not think that he is a candidate for anesthesia at our facility. UGI series- pd Exam Const General: cooperative Other: mild discomfort. Does not make eye contact. Will answer yes/no questions. c/o RUQ pain and nausea. L: CTA b/l Abdom. post Sx changes noted no hernias RUQ pain, but not defuse peritonitis. +BS. Resp Effort & Inspection: normal respiratory effort and able to speak in complete sentences Auscultation: clear to auscultation bilaterally GI Other: post-surgical changes noted. no hernias + BS RUQ tenderness Extrem General: no clubbing, cyanosis or edema Objective Last Vital Signs Temp 36.9 C 09/03/22 03:34 Pulse 96 H 09/03/22 08:30 Resp 20 09/03/22 08:30 BP 113/73 09/03/22 08:30 Pulse Ox 94 09/03/22 08:30 Laboratory Results - last 24 hr 08/29/22 09/01/22 09/03/22 06:15 17:40 06:00 WBC RBC Hgb Hct MCV MCH MCHC RDW Plt Count MPV Immature Gran % Neutrophils % Lymphocytes % Monocytes % Eosinophils % Basophils % Nucleated RBC % Absolute Neutrophils Absolute Lymphocytes Absolute Monocytes Absolute Eosinophils Absolute Basophils Sodium 138 Potassium 3.6 Chloride 102 Carbon Dioxide 27.4 Anion Gap 8.6 BUN 9 Creatinine 1.1 Est GFR (CKD-EPI 2020) 88.67 Glucose 105 Calcium 9.0 Magnesium 2.3 Stool Campylobacter PCR Negative Stl C.difficile Tox PCR Stool Salmonella PCR Negative Stool Shigella PCR Negative Shiga Toxin (PCR) Negative Miscellaneous Test See CommentS 09/03/22 09/03/22 06:00 08:40 WBC 9.77 RBC 4.76 Hgb 14.6 Hct 44.0 MCV 92 MCH 30.7 MCHC 33.2 RDW 14.9 H Plt Count 445 H MPV 10.3 Immature Gran % 0.2 Neutrophils % 52.4 Lymphocytes % 30.7 Monocytes % 13.4 Eosinophils % 2.7 Basophils % 0.6 Nucleated RBC % 0.0 Absolute Neutrophils 5.12 Absolute Lymphocytes 3.00 Absolute Monocytes 1.31 H Absolute Eosinophils 0.26 Absolute Basophils 0.06 Sodium Potassium Chloride Carbon Dioxide Anion Gap BUN Creatinine Est GFR (CKD-EPI 2020) Glucose Calcium Magnesium Stool Campylobacter PCR Stl C.difficile Tox PCR Negative Stool Salmonella PCR Stool Shigella PCR Shiga Toxin (PCR) Miscellaneous Test Time Spent with Patient Time Spent with Patient: 35-49 minutes Time was spent: preparing to see the patient(eg.review tests), obtaining and/or reviewing separately otained hiistory, ordering medications,tests, procedures, referring, communicating with other health rn coronary care unit, indepentently interpreting results, counseling the patient and care coordination
[2022-09-03 12:17] VITALS: BP 115/72; PULSE 90; RESP 16; TEMP 37.2; O2SAT 97
[2022-09-03 15:33] VITALS: BP 133/82; PULSE 80; RESP 16; TEMP 37.8; O2SAT 93
[2022-09-03] MEDS: Lactated Ringers 1,000 ML 150 ML IV ×2 (17:46→21:47)
--- NOTE | 2022-09-03 19:27 | W.PM.PROGNOT ---
Date of Service Date of service: 09/03/22 Time of Service: 13:00 Assessment and Plan Assessment and plan (1) Cholelithiasis without obstruction: Status: Acute Assessment and plan: Chronic with no evidence of acute cholecystitis or pancreatitis and no evidence of dilatation of the common bile duct surgery following US IMPRESSION: 1.? Cholelithiasis.? There calculi and sludge in the gallbladder lumen.? Gallbladder mildly distended.? Gallbladder wall thickness is upper normal.? There is no pericholecystic fluid.? Common hepatic duct is not dilated. 2.? No focal findings in the liver, pancreas, and right kidney. 3.? No other right upper quadrant findings and there is no ascites.? Gallstones and sludge. (2) Elevated bilirubin: Status: Chronic Assessment and plan: normal lipase. hepatitis panel negative tbili normalized to his baseline and stable indirect bili, juaquin test, direct and indirect, and peripheral smear ok. (3) Upper abdominal pain: Status: Acute Assessment and plan: Continue symptomatic care with bowel rest, IV hydration and repletion of electrolytes as needed. Pain management with Dilaudid IV. continue to advance diet as tolerated which he is not tolerating. . anticipate discharge home when taking PO. (4) Anxiety: Status: Chronic Assessment and plan: Clonazepam is being taken at home but he will have Ativan as needed during the hospital stay. Continue his sertraline. (5) Acquired hypercoagulable state: Assessment and plan: Eliquis held, enoxaparin continued (6) Hypokalemia due to excessive gastrointestinal loss of potassium: Status: Resolved Assessment and plan: continue to replete and follow. magnesium normal limits discussed with Dr Younger Subjective Subjective Patient reports: no new complaints, tolerating liquids well, bowel movement, nausea and afebrile; denies vomiting or shortness of breath Interval history since last seen: Golden continues to have difficulty communicating; he keeps his eyes closed and doesn't respond verbally to questions, just shakes his head, very slightly yes or no; difficult to understand, states we are doing nothing for him and he would like to go home, explained we are not keeping him against his will and he is free to go. He has been seen by surgery and will keep his appt @ [facility] on the 23 of September. He would like it moved up, as would we, but we are unable to get hime an appointment sooner. Exam Const Nutritional Appearance: obese Orientation: alert, awake and oriented x3 HENMT Head: atraumatic Resp Effort & Inspection: normal respiratory effort Cardio Rate: regular rate GI Inspection: normal to inspection Palpation: soft and tender in the LUQ Neuro General: patient alert, patient awake and patient oriented x3 Extrem General: normal to inspection and full ROM Psych Speech and Movement: delayed speech Affect: blunted Objective Last Vital Signs Temp 37.8 C H 09/03/22 15:33 Pulse 80 09/03/22 15:33 Resp 16 09/03/22 15:33 BP 133/82 09/03/22 15:33 Pulse Ox 93 09/03/22 15:33 Laboratory Results - last 24 hr 09/01/22 09/03/22 09/03/22 17:40 06:00 06:00 WBC 9.77 RBC 4.76 Hgb 14.6 Hct 44.0 MCV 92 MCH 30.7 MCHC 33.2 RDW 14.9 H Plt Count 445 H MPV 10.3 Immature Gran % 0.2 Neutrophils % 52.4 Lymphocytes % 30.7 Monocytes % 13.4 Eosinophils % 2.7 Basophils % 0.6 Nucleated RBC % 0.0 Absolute Neutrophils 5.12 Absolute Lymphocytes 3.00 Absolute Monocytes 1.31 H Absolute Eosinophils 0.26 Absolute Basophils 0.06 Sodium 138 Potassium 3.6 Chloride 102 Carbon Dioxide 27.4 Anion Gap 8.6 BUN 9 Creatinine 1.1 Est GFR (CKD-EPI 2020) 88.67 Glucose 105 Calcium 9.0 Magnesium 2.3 Stool Campylobacter PCR Negative Stl C.difficile Tox PCR Stool Salmonella PCR Negative Stool Shigella PCR Negative Shiga Toxin (PCR) Negative 09/03/22 08:40 WBC RBC Hgb Hct MCV MCH MCHC RDW Plt Count MPV Immature Gran % Neutrophils % Lymphocytes % Monocytes % Eosinophils % Basophils % Nucleated RBC % Absolute Neutrophils Absolute Lymphocytes Absolute Monocytes Absolute Eosinophils Absolute Basophils Sodium Potassium Chloride Carbon Dioxide Anion Gap BUN Creatinine Est GFR (CKD-EPI 2020) Glucose Calcium Magnesium Stool Campylobacter PCR Stl C.difficile Tox PCR Negative Stool Salmonella PCR Stool Shigella PCR Shiga Toxin (PCR) Time Spent with Patient Time Spent with Patient: 25-34 minutes Time was spent: preparing to see the patient(eg.review tests), obtaining and/or reviewing separately otained hiistory, ordering medications,tests, procedures, referring, communicating with other health child care sitter, indepentently interpreting results, counseling the patient and care coordination
[2022-09-03] MEDS: Normal Saline Flush 10 ML SYR IVP (19:46)
[2022-09-03 20:18] VITALS: BP 130/84; PULSE 82; RESP 16; TEMP 36.1; O2SAT 93
[2022-09-03] MEDS: Benzonatate 200 MG CAP PO (21:48)
[2022-09-03 23:15] VITALS: BP 139/82; PULSE 75; RESP 16; TEMP 37.2; O2SAT 90
[2022-09-04] VITALS (11 sets, daily range): BP systolic 126–169; BP diastolic 78–91; PULSE 85–104; RESP 16–20; TEMP 36.9–38.9; O2SAT 91–98
[2022-09-04] MEDS: HYDROmorphone 2 MG/ML VIAL 1 MG IVP (02:27)
[2022-09-04] MEDS: Sucralfate 1 GM TAB PO ×4 (04:17→21:32)
[2022-09-04] MEDS: Acetaminophen 325 MG TAB PO ×4 (04:18→21:31)
[2022-09-04] MEDS: Ondansetron O.D.T. 4 MG TABEF PO ×4 (04:18→21:32)
[2022-09-04 05:18] LABS: Abs Immature Grans 0.02 10^3/uL (0.0-0.06); Absolute Basophil Count 0.05 10^3/uL (0.0-0.2); Absolute Eosinophil Count 0.24 10^3/uL (0.0-0.7); Absolute Lymphocyte Count 3.25 10^3/uL (1.2-3.4); Absolute Monocyte Count 1.24 10^3/uL (0.1-0.8); Absolute Neutrophil Count 4.32 10^3/uL (1.2-6.7); Basophils % 0.5; Eosinophils % 2.6; HCT 43.5 % (40.0-50.0); HGB 14.4 g/dL (13.5-17.5); Immature Grans % 0.2; Lymphocytes % 35.6; MCHC 33.1 % (32.0-36.0); MCV 94 fL (80-95); MPV 9.6 fL (8.0-11.0); Monocytes % 13.6; Neutrophils % 47.5; Platelet Count 360 10^3/uL (130-400); RBC 4.65 10^6/uL (4.36-5.78); RDW-SD 51.9 fL; WBC 9.12 10^3/uL (4.4-10.8)
[2022-09-04 05:27] LABS: Anion Gap 7.7 mmol/L (3-11); BUN 9 mg/dL (7-18); CO2 28.3 mmol/L (21.0-32.0); CREATININE 1.2 mg/dL (0.70-1.30); Calcium 8.5 mg/dL (8.5-10.1); Chloride 101 mmol/L (98-107); Estimated GFR 79.88 (mL/min/1.73m2); Glucose 88 mg/dL (74-106); Potassium 4.3 mmol/L (3.5-5.1); Sodium 137 mmol/L (136-145)
[2022-09-04] MEDS: Sertraline 100 MG TAB PO (07:38)
[2022-09-04] MEDS: risperiDONE 0.5 MG TAB PO ×2 (07:38→19:33)
[2022-09-04] MEDS: Pantoprazole 40 MG VIAL IVP ×2 (07:50→19:34)
--- NOTE | 2022-09-04 08:23 | PDOC.CMPRO ---
- If Service Date Differs Date of service: 09/04/22 Time of Service: 08:23 Care Management Progress Note S/O: Golden is sitting up in bed, he is awake and engages in conversation. He appears anxious and has the following concerns. 1.) He reports that his temp is rising daily and is currently 102. He thinks he has pneumonia and is not being treated for it. 2.) He is concerned about the potassium IV that infiltrated into his arm, and c/o pain and swelling. He notes that he looked it up online and found that it can lead to amputation. He has been using ice and heat intermittently which he report is helping. 3.) He shares with CM that he can't keep fluids down and all we want to do is send him home. CM, primary nurse Tanya and hospitalist/Lyndsay met with Golden. Lyndsay addressed each of his concerns in detail. Following this conversation Golden refused covid testing and a plan to discharge home today with a RX for PO Doxycycline, new [facility] RN services, 1 week PCP Hospital follow up was established. Lyndsay reviewed plan with patient's sister at his request, at it was decided that it would be ok for Golden to stay another night for further monitoring. Golden initially wanted to stick with the plan to discharge home, but is now agreeable to stay another night after his father called him and asked him to stay. 09/03/22 CM discussed Golden with Surgery. Per Dr. Vu, Golden has gone to [facility] X2, and wouldn't engage with the Surgeon or let them evaluate him. FERNANDA spoke with his sister Madina and she agrees to go to Golden's 09/23/22 appointment at [facility] to support him during the visit. She also notes that her and Golden have back to back appointments at that office. Golden is also fine with this plan and expresses that he wants Yamel to go with him. CM also let Golden know that it is really important to talk to the surgeon about his symptoms and he agrees. CM will continue to follow. A: 36 year old male admitted to [facility] on 08/31/22 for Gastroenteritis, Upper Abdominal Pain P: Golden is being closely monitored with supportive care at this time. Anticipate, Golden will return home 09/05/22, if medically ready per provider. He will need New [facility] RN services and a follow up with his PCP next week. He will transport via private vehicle with father. Golden will follow up with [facility] on 09/23/22 as previously scheduled. Golden is advised that it is ok for him to return to the ED with new or worsening symptoms. CM will continue to follow.
[2022-09-04] MEDS: Barium Sulfate 60% W/V 355 ML BTL 300 ML PO (10:11)
[2022-09-04] MEDS: Barium Sulfate 98% W/W 140 ML BTL PO (10:11)
--- NOTE | 2022-09-04 10:15 | DI.RAD_ITS ---
Exam(s) RF UPPER GI SERIES EXAM: UPPER GI SERIES CLINICAL HISTORY: reflux TECHNIQUE: 2D and real-time digital imaging was performed. CONTRAST MATERIAL: Oral barium Oral water soluble contrast was administered. COMPARISON: No exams were available for comparison FINDINGS: Initial plain film of the abdomen reveals normal stool and air pattern. No abnormal calcifications ar e seen. There is an IVC filter in place. Preliminary chest x-ray was performed. Heart size and pulmonary vasculature within normal limits the lungs are clear. No effusions or pneumothoraces are identified. Esophagus: The esophagus is patent with no evidence for erosions, fold thickening, strictures, or ma sses. With regards to the motility, there is a normal primary stripping wave. There is mild gastroeso phageal reflux noted. No hiatal hernia is seen. Stomach: The stomach shows no gastric fold thickening, erosions, or masses. Duodenal Bulb: Shows no gastric fold thickening, erosions, or masses. IMPRESSION: There is a mild gastroesophageal reflux noted during the examination. RADIATION DOSE DELIVERED: karly Jorgensen= 137 mGy
[2022-09-04] MEDS: Lactated Ringers 1,000 ML 150 ML IV ×3 (10:17→23:01)
[2022-09-04] MEDS: Normal Saline Flush 10 ML SYR IVP ×2 (11:43→19:34)
[2022-09-04] MEDS: Famotidine 20 MG/2 ML VIAL IVP ×2 (11:43→21:34)
[2022-09-04 12:01] LABS: ALT 31 U/L (16-63); AST 30 U/L (15-37); Albumin 3.4 g/dL (3.4-5.0); Alkaline Phosphatase 65 U/L (46-116); Bilirubin, Direct 0.2 mg/dL (0.0-0.2); Total Protein 7.2 g/dL (6.4-8.2)
--- NOTE | 2022-09-04 14:04 | DSE_ITS ---
DS: Diagnosis Discharge Diagnosis (1) Cholelithiasis without obstruction: Status: Acute (2) Elevated bilirubin: Status: Chronic (3) Upper abdominal pain: Status: Acute (4) Anxiety: Status: Chronic (5) Acquired hypercoagulable state: (6) Hypokalemia due to excessive gastrointestinal loss of potassium: Status: Resolved Discharge Plan Disposition Patient Disposition: Home W/Home Health Services Condition: Stable Discharge Details Reason For Visit: Gastroenteritis,Choleithiasis,Upper Abdominal Pain Admit Date/Time: 08/29/22 01:11 Admit Provider: Stephen Hines Attending Provider: Stephen Hines Primary Care Provider: José Miguel Flores Home Meds and New Rx's Prescriptions: New benzonatate 200 mg Capsule 200 mg PO TID PRN PRN (Reason: Cough) Qty: 30 0RF sucralfate 1 gram Tablet 1 g PO AC & HS Qty: 120 0RF Continued apixaban 5 mg tablet 5 mg PO BID Qty: 180 3RF sertraline 100 mg tablet 100 mg PO DAILY Qty: 90 3RF pantoprazole 40 mg tablet,delayed release (DR/EC) 40 mg PO BID Qty: 180 3RF cetirizine [Zyrtec] 10 mg tablet 10 mg PO DAILY Qty: 90 3RF risperidone [Risperdal] 0.5 mg tablet 0.5 mg PO BID Qty: 60 11RF hydrocortisone 2.5 % ointment 1 applic TP BID PRN (Reason: neck rash) Qty: 28.35 1RF betamethasone dipropionate 0.05 % ointment 1 applic topical BID Qty: 15 0RF Rx Instructions: apply to infected nailbed (right great toe) 2x daily diclofenac sodium [Voltaren Arthritis Pain] 1 % gel 2 g topical QID PRN (Reason: back pain) Qty: 150 1RF Rx Instructions: fluticasone propionate 50 mcg/actuation spray,suspension See Rx Instructions .ROUTE .COMPLEX Qty: 16 11RF Dose Instruction: USE ONE SPRAY IN EACH NOSTRIL ONCE DAILY Rx Instructions: USE ONE SPRAY IN EACH NOSTRIL ONCE DAILY epinephrine [EpiPen 2-Farrukh] 0.3 mg/0.3 mL auto-injector 0.3 mg IM ONCE Qty: 2 0RF Rx Instructions: as a single dose triamcinolone acetonide 0.1 % cream 1 applic TP BID Qty: 30 1RF Rx Instructions: apply for 10 days or until healed, whichever comes first acetaminophen [Tylenol Extra Strength] 500 mg tablet 1,000 mg PO TID PRN (Reason: pain/fever) Qty: 270 4RF cyclobenzaprine 10 mg tablet 10 mg PO TID PRN (Reason: muscle spasm) Qty: 20 1RF clonazepam 1 mg tablet 1 mg PO BID PRN (Reason: anxiety) Qty: 60 5RF doxepin 10 mg capsule 10 mg PO BID Qty: 60 1RF Changed famotidine 20 mg tablet 20 mg PO BID Qty: 90 3RF No Action famotidine [Pepcid] 20 mg tablet 20 mg PO DAILY Qty: 90 3RF Discharge Instructions Stand Alone Forms: Nursing Discharge Form Referrals: José Miguel Flores MD [Primary Care Provider] - Activity:: Activity as Tolerated Equipment/Supplies:: No Equipment Needed Diet:: As Tolerated Discharge Orders Discharge Orders: Discharge Order (Routine); Ordered 09/04/22 Ordered By: Hanny Padilla DS: Data Vitals/I&O Vitals and I&O: Vital Signs Temperature 36.9 C 09/04/22 10:39 Temperature Source Tympanic 09/04/22 07:45 Pulse 99 H 09/04/22 11:17 Pulse Rhythm Regular 09/04/22 10:54 Pulse 71 08/29/22 02:16 Respiratory Rate 18 09/04/22 11:17 Respiratory Effort Normal, Non-Labored 09/04/22 10:54 Respiratory Depth Normal 09/04/22 10:54 Respiratory Pattern Normal 09/04/22 10:54 Blood Pressure 169/82 H 09/04/22 11:17 Blood Pressure Mean 62 08/30/22 20:35 Blood Pressure Position Supine 08/30/22 20:35 Pulse Oximetry 94 09/04/22 11:17 Oxygen Delivery Method Room Air 09/04/22 11:17 Oxygen Flow Rate 0 09/04/22 11:17 Pain Level 5 09/04/22 11:17 Comment BP called over radio 09/02/22 14:23 Intake & Output 09/03/22 09/04/22 09/04/22 23:59 11:59 23:59 Intake Total 1142.5 / 1142.5 1000 / 1000 Output Total 200 / 200 Balance 942.5 / 942.5 1000 / 1000 Intake: IV 602.5 / 602.5 1000 / 1000 Oral 540 / 540 Output: Stool 200 / 200 Other: Urine Appearance Clear Comment voided in toilet multiple times today. 2 witnessed. resfused urinal Stool Characteristics Liquid Voiding Methods Toilet Data Completed and Pending Labs on day of discharge: Labs from last 24 hours 09/04/22 09/04/22 09/04/22 13:45 05:08 05:08 WBC 9.12 RBC 4.65 Hgb 14.4 Hct 43.5 MCV 94 MCH 31.0 MCHC 33.1 RDW 15.0 H Plt Count 360 MPV 9.6 Immature Gran % 0.2 Neutrophils % 47.5 Lymphocytes % 35.6 Monocytes % 13.6 Eosinophils % 2.6 Basophils % 0.5 Nucleated RBC % 0.0 Absolute Neutrophils 4.32 Absolute Lymphocytes 3.25 Absolute Monocytes 1.24 H Absolute Eosinophils 0.24 Absolute Basophils 0.05 Sodium Potassium Chloride Carbon Dioxide Anion Gap BUN Creatinine Est GFR (CKD-EPI 2020) Glucose Calcium Magnesium Total Bilirubin 1.0 Conjugated Bilirubin 0.2 AST 30 ALT 31 Alkaline Phosphatase 65 Total Protein 7.2 Albumin 3.4 COVID-19 Source Pending SARS-CoV-2 (PCR) Pending Influenza Type A (PCR) Pending Influenza Type B (PCR) Pending RSV (PCR) Pending 09/04/22 05:08 WBC RBC Hgb Hct MCV MCH MCHC RDW Plt Count MPV Immature Gran % Neutrophils % Lymphocytes % Monocytes % Eosinophils % Basophils % Nucleated RBC % Absolute Neutrophils Absolute Lymphocytes Absolute Monocytes Absolute Eosinophils Absolute Basophils Sodium 137 Potassium 4.3 Chloride 101 Carbon Dioxide 28.3 Anion Gap 7.7 BUN 9 Creatinine 1.2 Est GFR (CKD-EPI 2020) 79.88 Glucose 88 Calcium 8.5 Magnesium 2.0 Total Bilirubin Conjugated Bilirubin AST ALT Alkaline Phosphatase Total Protein Albumin COVID-19 Source SARS-CoV-2 (PCR) Influenza Type A (PCR) Influenza Type B (PCR) RSV (PCR) 09/04/22 05:08 Blood Blood Culture - Pending 09/04/22 04:58 Blood Blood Culture - Pending Preliminary micro results at discharge 09/04/22 05:08 Blood Culture - Pending Blood 09/04/22 04:58 Blood Culture - Pending Blood PFSH All Active Problems (Updated 09/03/22 @ 11:46 by Erlinda Vu DO) Diarrhea (Acute) Postprandial RUQ pain (Acute) [place] disease (Acute) Cholelithiasis without obstruction (Acute) Gastroenteritis (Acute) Acid reflux (Chronic) Nausea & vomiting (Acute) Hypokalemia (Acute) Rt inguinal pain (Acute) Eye twitch (Acute) Cellulitis (Acute) Thyroid dysfunction (Acute) 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 Needs to remain on lifelong anti-caog Hereditary spherocytosis (Chronic) s/p splenectomy in 1991. Biliary colic (Acute) Elevated serum protein level (Acute) Chest pain (Acute) Hand pain, right (Acute) Pain, rectal (Acute) Abdominal pain (Acute) Left-sided thoracic back pain (Acute) Cholelithiasis (Acute) Vomiting (Acute) Acute epigastric pain (Acute) Leg numbness (Acute) Rash (Acute) Upper abdominal pain (Acute) GERD with esophagitis (Acute) Anxiety (Chronic) extreme and crippling Medical History Acquired hypercoagulable state due to splenectomy Bipolar disorder DVT of axillary vein, acute bilateral (~02/2019) [facility] Esophageal foreign body (~05/2018) Esophagitis determined by endoscopy (~05/2018) Essential hypertension Hyperbilirubinemia PAH (pulmonary artery hypertension) 02/28/19 [facility] [place] [facility] ECHO (MILD) Pulmonary embolism, bilateral (~02/2019) [facility] [place] [facility] Dr. Flores [facility] 08/2019; RECURRENT Thrombocytosis after splenectomy Tricuspid regurgitation 02/28/19 [facility] [place] [facility] ECHO; MILD TO MOD Surgical History Abnormal findings on esophagogastroduodenoscopy (EGD) H/O hernia repair Unspecified site, repaired x3 H/O superior vena cava filter placement History of splenectomy Priapism (~08/2019) 09/11/19 [facility] [place]; S/P PENILE SHUNT (AL-GHORAB) S/P IVC filter (~08/2019) [facility] [place] [facility] S/P partial thyroidectomy Social History Smoking/Tobacco Use Status: Never Smoking risk assessment performed?: Yes Alcohol Intake: never Drug use: Never Substance use type: does not use Current gender identity: male Do you feel safe at home: Yes Do you feel safe in your relationship?: Yes
--- NOTE | 2022-09-04 14:33 | W.PM.PROGNOT ---
Date of Service Date of service: 09/04/22 Time of Service: 14:33 Assessment and Plan Assessment and plan (1) Fever: Status: Acute Assessment and plan: Chest x-ray with no consolidation infiltrate or acute findings. is oxygenating well on room air. I would like to check a fluvid but he is adamantly refusing. UA is pending but with no urinary symptoms doubt UTI. His abdominal pain remains unchanged since admission and repeat labs including liver functions show normal T. bili with no other abnormalities. Blood cultures are pending but source is most likely a viral illness in the setting of headache body aches and dry cough. Unfortunately he is perseverating on pneumonia and wants an antibiotic for it. I did discuss with him that I do think that this is viral and that the viral testing would be helpful to diagnose his fever but again he does not want to be tested. (2) Cholelithiasis without obstruction: Status: Acute Assessment and plan: Chronic with no evidence of acute cholecystitis or pancreatitis and no evidence of dilatation of the common bile duct surgery following Diet has been advanced but patient is refusing to take oral. We will continue to encourage And closely monitor. His abdominal exam remains unremarkable US IMPRESSION: 1.? Cholelithiasis.? There calculi and sludge in the gallbladder lumen.? Gallbladder mildly distended.? Gallbladder wall thickness is upper normal.? There is no pericholecystic fluid.? Common hepatic duct is not dilated. 2.? No focal findings in the liver, pancreas, and right kidney. 3.? No other right upper quadrant findings and there is no ascites.? Gallstones and sludge. (3) Elevated bilirubin: Status: Chronic Assessment and plan: tbili normalized And is 1.0 today normal lipase. hepatitis panel negative indirect bili, juaquin test, direct and indirect, and peripheral smear ok. (4) Anxiety: Status: Chronic Assessment and plan: Clonazepam is being taken at home but he will have Ativan as needed during the hospital stay. Continue his sertraline. (5) Acquired hypercoagulable state: Assessment and plan: Eliquis Is on hold and he is receiving enoxaparin twice daily will hospitalized (6) Hypokalemia due to excessive gastrointestinal loss of potassium: Status: Resolved Assessment and plan: Normalized and 4.3 today magnesium normal limits (7) Discharge planning issues: Status: Acute Assessment and plan: Psychiatric disorder is a barrier to his discharge unfortunately secondary to high levels of anxiety. Plan is for discharge to home tomorrow with home health nursing if he remains stable. Discussed with Dr. Younger Subjective Subjective Patient reports: still having pain; denies tolerating liquids well Interval history since last seen: patient reports ongoing symptoms and now with fever, headache and body aches. declines fluvid swab, highly suspect viral illness with no source of bacterial infection identified. blood cultures pending. Exam Const Nutritional Appearance: obese Orientation: alert, awake and oriented x3 HENMT Head: atraumatic Resp Effort & Inspection: normal respiratory effort Cardio Rate: regular rate GI Inspection: normal to inspection Palpation: soft and tender in the LUQ Neuro General: patient alert, patient awake and patient oriented x3 Extrem General: normal to inspection and full ROM Psych Speech and Movement: delayed speech Affect: blunted Objective Last Vital Signs Temp 36.9 C 09/04/22 10:39 Pulse 99 H 09/04/22 11:17 Resp 18 09/04/22 11:17 BP 169/82 H 09/04/22 11:17 Pulse Ox 94 09/04/22 11:17 Laboratory Results - last 24 hr 09/04/22 09/04/22 09/04/22 05:08 05:08 05:08 WBC 9.12 RBC 4.65 Hgb 14.4 Hct 43.5 MCV 94 MCH 31.0 MCHC 33.1 RDW 15.0 H Plt Count 360 MPV 9.6 Immature Gran % 0.2 Neutrophils % 47.5 Lymphocytes % 35.6 Monocytes % 13.6 Eosinophils % 2.6 Basophils % 0.5 Nucleated RBC % 0.0 Absolute Neutrophils 4.32 Absolute Lymphocytes 3.25 Absolute Monocytes 1.24 H Absolute Eosinophils 0.24 Absolute Basophils 0.05 Sodium 137 Potassium 4.3 Chloride 101 Carbon Dioxide 28.3 Anion Gap 7.7 BUN 9 Creatinine 1.2 Est GFR (CKD-EPI 2020) 79.88 Glucose 88 Calcium 8.5 Magnesium 2.0 Total Bilirubin 1.0 Conjugated Bilirubin 0.2 AST 30 ALT 31 Alkaline Phosphatase 65 Total Protein 7.2 Albumin 3.4 Time Spent with Patient Time Spent with Patient: 25-34 minutes Time was spent: preparing to see the patient(eg.review tests), obtaining and/or reviewing separately otained hiistory, ordering medications,tests, procedures, referring, communicating with other health patient care secretary, indepentently interpreting results, counseling the patient and care coordination
--- NOTE | 2022-09-04 14:48 | NUR.NOTE ---
Nursing Note: MACHINE PLUG SHAPER ordered FLUVID swab to be done, pt refusing at this time.
--- NOTE | 2022-09-04 21:56 | W.PM.PROGNOT ---
Date of Service Date of service: 09/04/22 Time of Service: 08:30 Assessment and Plan Assessment and plan (1) Cholelithiasis without obstruction: Status: Acute Assessment and plan: Patient continues to struggle with chronic gallstones. He has been been down to [facility] twice and was unable to communicate with the surgeons there due to his bipolar disorder. So he has still not had surgery. We have been working with him for the past 18 months to try to secure surgery for him at a tertiary center. He does have a appointment at [facility] on 09/23. I did talk to [facility] and they are unable to move that appointment up. -Patient continues to have issues with pain/nausea/diarrhea. Home however he is also not been adherent to the diet plan. I did fax over a copy of the gallbladder diet that he should be given -Continue both PPI and H2 lila -Patient does not like the Carafate and does not feel it helps and will not take it -Continue scheduled Zofran -Discharge when medically stable (2) Diarrhea: Status: Acute (3) Has low fat diet: Status: Acute Assessment and plan: - He should strictly follow a low-fat diet until he has his gallbladder out and then for at least 2 to 6 weeks after surgery High-fat foods include: ? Foods that are fried, like Palestinian fries and potato chips ? High-fat meats, such as baig, bologna, sausage, ground beef, and ribs, pork products ? High-fat dairy products, such as cheese, ice cream, cream, whole milk, and sour cream ? Pizza ? Foods made with lard or butter ? Creamy soups or sauces ? Meat gravies ? Chocolate ? Oils, such as palm and coconut oil ? Skin of chicken or turkey ? Nuts and nut butters ? Avocadoes (4) Postprandial RUQ pain: Status: Acute (5) White Owl disease: Status: Acute (6) Acid reflux: Status: Chronic Assessment and plan: UGI 09/04/22 -Due to his past medical history he is not an eligible candidate for anesthesia at [facility]. I am unable to do an EGD. We did do an upper GI series today Esophagus:? The esophagus is patent with no evidence for erosions, fold thickening, strictures, or masses. With regards to the motility, there is a normal primary stripping wave. There is mild gastroesophageal reflux noted.? No hiatal hernia is seen. Stomach:? The stomach shows no gastric fold thickening, erosions, or masses. Duodenal Bulb: Shows no gastric fold thickening, erosions, or masses. IMPRESSION: There is a mild gastroesophageal reflux noted during the examination. (7) Nausea & vomiting: Status: Acute (8) Hypokalemia due to excessive gastrointestinal loss of potassium: Status: Resolved (9) Elevated bilirubin: Status: Chronic (10) Anti-cardiolipin antibody positive: Status: Chronic Assessment and plan: - Patient is currently being bridged on Lovenox. He will need to go back on apixaban for home -We will resume his apixaban dose of 5 mg p.o. twice daily tonight Stop Lovenox in a.m. (11) History of pulmonary embolism: Status: Chronic (12) Hereditary spherocytosis: Status: Chronic (13) Biliary colic: Status: Acute (14) Tricuspid regurgitation: (15) Thrombocytosis after splenectomy: (16) Pulmonary embolism, bilateral: (17) PAH (pulmonary artery hypertension): Assessment and plan: - See echo report in [facility] (18) Bipolar disorder: Assessment and plan: - Patient's sister has stated she will accompany him to his appointment at [facility] with Dr. Salazar I did write a letter to Dr. Guzman's office stating Golden's history and issues with anxiety. (19) DVT of axillary vein, acute bilateral: (20) GERD with esophagitis: Status: Acute (21) Presence of vena cava filter: Subjective Subjective Patient reports: nausea Interval history since last seen: Golden is the same today. No CP or SOB. no productive cough. no dysuria. no leg pain or swelling. He complains of nausea/diarrhea/right upper quadrant pain Exam GI Other: Postsurgical changes in the left upper quadrant. No palpable hernias. Mild right upper quadrant tenderness. Good bowel sounds. No peritoneal signs. Objective Last Vital Signs Temp 37.7 C H 09/04/22 21:31 Pulse 96 H 09/04/22 19:39 Resp 18 09/04/22 19:39 BP 137/84 09/04/22 19:39 Pulse Ox 91 L 09/04/22 19:39 Laboratory Results - last 24 hr 09/04/22 09/04/22 09/04/22 05:08 05:08 05:08 WBC 9.12 RBC 4.65 Hgb 14.4 Hct 43.5 MCV 94 MCH 31.0 MCHC 33.1 RDW 15.0 H Plt Count 360 MPV 9.6 Immature Gran % 0.2 Neutrophils % 47.5 Lymphocytes % 35.6 Monocytes % 13.6 Eosinophils % 2.6 Basophils % 0.5 Nucleated RBC % 0.0 Absolute Neutrophils 4.32 Absolute Lymphocytes 3.25 Absolute Monocytes 1.24 H Absolute Eosinophils 0.24 Absolute Basophils 0.05 Sodium 137 Potassium 4.3 Chloride 101 Carbon Dioxide 28.3 Anion Gap 7.7 BUN 9 Creatinine 1.2 Est GFR (CKD-EPI 2020) 79.88 Glucose 88 Calcium 8.5 Magnesium 2.0 Total Bilirubin 1.0 Conjugated Bilirubin 0.2 AST 30 ALT 31 Alkaline Phosphatase 65 Total Protein 7.2 Albumin 3.4 Time Spent with Patient Time Spent with Patient: 25-34 minutes Time was spent: preparing to see the patient(eg.review tests), obtaining and/or reviewing separately otained hiistory, ordering medications,tests, procedures, referring, communicating with other health medicare contact specialist, indepentently interpreting results and care coordination
[2022-09-04 22:18] LABS: Bilirubin Negative (Negative); Blood Negative (Negative); Clarity Clear (Clear); Glucose Negative (Negative); Ketones 15 mg/dL (Negative); Leukocyte Esterase Negative (Negative); Nitrite Negative (Negative); Urobilinogen 0.2 mg/dL (Up to 0.2)
[2022-09-04] MEDS: Apixaban 5 MG TAB PO (23:07)
[2022-09-05] VITALS (7 sets, daily range): BP systolic 136–158; BP diastolic 81–92; PULSE 82–95; RESP 19–20; TEMP 37.4–37.7; O2SAT 88–95
[2022-09-05 00:13] LABS: COVID-19 PCR Negative (Negative); Influenza A PCR Negative (Negative); Influenza B PCR Negative (Negative)
[2022-09-05 00:15] LABS: Source Nasopharynx
[2022-09-05 00:17] LABS: RSV PCR Positive (Negative)
[2022-09-05] MEDS: Sucralfate 1 GM TAB PO (03:09)
[2022-09-05] MEDS: Ondansetron O.D.T. 4 MG TABEF PO (03:10)
[2022-09-05] MEDS: Lactated Ringers 1,000 ML 150 ML IV (05:49)
[2022-09-05] MEDS: Sertraline 100 MG TAB PO (08:26)
[2022-09-05] MEDS: Apixaban 5 MG TAB PO (08:26)
[2022-09-05] MEDS: risperiDONE 0.5 MG TAB PO (08:26)
--- NOTE | 2022-09-05 14:05 | CMDISCH_ITS ---
- If Service Date Differs Date of service: 09/05/22 Time of Service: 14:11 LACE Index Scoring Tool - Questions: Length of Stay (in days): 7 - 13 Acuity (Admit via E.D.?): Yes E.D. Visits: 8 - Answers: Total Score: 12 Risk of Readmission: High Risk Care Management Discharge Reason for Hospitalization: Gastroenteritis, Upper Abdominal Pain Discharge Plan: Golden will return home 09/05/22, when medically ready per provider. Anticipate new orders for [facility] RN, follow up with his PCP next week. He will transport via private vehicle with his father. Golden will follow up with [facility] on 09/23/22 as previously scheduled. Patient/Family Education Needs: Review of discharge instructions, discuss Ask Me Three. Services Needed at Discharge: Home Health Care Services
--- NOTE | 2022-09-05 15:12 | W.PM.DS.N ---
Date of service: 09/05/22 Time of Service: 11:30 DS: Diagnosis Discharge Diagnosis (1) Cholelithiasis without obstruction: Status: Acute (2) Diarrhea: Status: Acute (3) Has low fat diet: Status: Acute (4) Postprandial RUQ pain: Status: Acute (5) Angel Fire disease: Status: Acute (6) Acid reflux: Status: Chronic (7) Nausea & vomiting: Status: Acute (8) Hypokalemia due to excessive gastrointestinal loss of potassium: Status: Resolved (9) Elevated bilirubin: Status: Chronic (10) Anti-cardiolipin antibody positive: Status: Chronic (11) History of pulmonary embolism: Status: Chronic (12) Hereditary spherocytosis: Status: Chronic (13) Biliary colic: Status: Acute (14) Tricuspid regurgitation: (15) Thrombocytosis after splenectomy: (16) Pulmonary embolism, bilateral: (17) PAH (pulmonary artery hypertension): (18) Bipolar disorder: (19) DVT of axillary vein, acute bilateral: (20) GERD with esophagitis: Status: Acute (21) Presence of vena cava filter: Discharge Plan Disposition Patient Disposition: Home W/Home Health Services Condition: Stable Discharge Details Reason For Visit: Gastroenteritis,Choleithiasis,Upper Abdominal Pain Admit Date/Time: 08/29/22 01:11 Admit Provider: Stephen Hines Attending Provider: Stephen Hines Primary Care Provider: José Miguel Flores Hospital Course Hospital Course: This is a 36-year-old male patient with past medical history of chronic abdominal symptoms with recurrent ED visits and history of cholelithiasis and elevated total bilirubin who presented to the [facility] ED quite often with extreme anxiety which is incapacitating mostly wearing winter hats and neck warmers as mask to cover his face.? He hardly opens his eyes when conversing.? He had a 5-day history of what started out as watery diarrhea and then nausea and vomiting with decreased intake for 2 to 3 days because of the symptoms having recurrence with even water.? Water would ?burn his esophagus?.? He is on famotidine and Protonix chronically and always has an elevated bilirubin thought to be possibly Guilbert's disease.?He denied blood in his emesis or stool despite being on Eliquis for chronic thromboembolic phenomena prevention having had pulmonary emboli and splenectomy with hypercoagulable state afterwards.? It continues to be unclear if the etiology of his elevated total bilirubin is Guilbert's disease.?He was not having gallbladder colic or evidence of pancreatitis, reporting most of his pain in the epigastrium with guarding.? He was admitted for IV fluids and bowel rest as well as potassium repletion with patient having chronic potassium loss through his gut by history.?Pain management with IV Dilaudid and antiemetics with Zofran.? He is a full code. MRCP was suggested by surgery but family and patient did not want to have this performed, and may not be able to have it because of his IVC filter. 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 His lipase was normal. The patient had COVID-19 infection remotely being more than 4 weeks.? He has chronic anxiety that is managed at home with Clonazepam.? He was give Ativan as needed during the hospital stay and Sertraline was continued.? He has hypokalemia, an acute on chronic problem for him, repleted during hospital stay. ?Surgery did see him and advised bowel rest with possible colonoscopy. He does have hypercoagulable state status post penectomy and will be on Eliquis lifelong. He is a full code.? The patient has had no fever or show of blood in his vomit or diarrhea.? He denied any syncope or palpitations.? Anesthesia @ [facility] declined his case secondary to risk.? We discussed transfer with [facility] and they declined stating he can be seen as planned in their clinic on September 23. ?He was discharged to home with family, stable, with referral to home health. Discussed with Dr Younger. ? Home Meds and New Rx's Prescriptions: New benzonatate 200 mg Capsule 200 mg PO TID PRN PRN (Reason: Cough) Qty: 30 0RF sucralfate 1 gram Tablet 1 g PO AC & HS Qty: 120 0RF Continued apixaban 5 mg tablet 5 mg PO BID Qty: 180 3RF sertraline 100 mg tablet 100 mg PO DAILY Qty: 90 3RF pantoprazole 40 mg tablet,delayed release (DR/EC) 40 mg PO BID Qty: 180 3RF cetirizine [Zyrtec] 10 mg tablet 10 mg PO DAILY Qty: 90 3RF risperidone [Risperdal] 0.5 mg tablet 0.5 mg PO BID Qty: 60 11RF hydrocortisone 2.5 % ointment 1 applic TP BID PRN (Reason: neck rash) Qty: 28.35 1RF betamethasone dipropionate 0.05 % ointment 1 applic topical BID Qty: 15 0RF Rx Instructions: apply to infected nailbed (right great toe) 2x daily diclofenac sodium [Voltaren Arthritis Pain] 1 % gel 2 g topical QID PRN (Reason: back pain) Qty: 150 1RF Rx Instructions: fluticasone propionate 50 mcg/actuation spray,suspension See Rx Instructions .ROUTE .COMPLEX Qty: 16 11RF Dose Instruction: USE ONE SPRAY IN EACH NOSTRIL ONCE DAILY Rx Instructions: USE ONE SPRAY IN EACH NOSTRIL ONCE DAILY epinephrine [EpiPen 2-Farrukh] 0.3 mg/0.3 mL auto-injector 0.3 mg IM ONCE Qty: 2 0RF Rx Instructions: as a single dose triamcinolone acetonide 0.1 % cream 1 applic TP BID Qty: 30 1RF Rx Instructions: apply for 10 days or until healed, whichever comes first acetaminophen [Tylenol Extra Strength] 500 mg tablet 1,000 mg PO TID PRN (Reason: pain/fever) Qty: 270 4RF cyclobenzaprine 10 mg tablet 10 mg PO TID PRN (Reason: muscle spasm) Qty: 20 1RF clonazepam 1 mg tablet 1 mg PO BID PRN (Reason: anxiety) Qty: 60 5RF doxepin 10 mg capsule 10 mg PO BID Qty: 60 1RF Changed famotidine 20 mg tablet 20 mg PO BID Qty: 90 3RF No Action famotidine [Pepcid] 20 mg tablet 20 mg PO DAILY Qty: 90 3RF Discharge Instructions Instructions: Respiratory Syncytial Virus (DC), Low Fat Diet (DC), Gastroenteritis (DC) Additional Instructions: Home Health will draw blood and have labs checked next week; results will go to your PCP and they will follow up with you. Stand Alone Forms: Nursing Discharge Form Referrals: José Miguel Flores MD [Primary Care Provider] - (Call Wednesday to make an aAppointment in the next 2 weeks ) Activity:: Activity as Tolerated Equipment/Supplies:: No Equipment Needed Diet:: As Tolerated Discharge Orders Discharge Orders: Discharge Order (Routine); Ordered 09/04/22 Ordered By: Hanny Padilla Other Ambulatory Orders: Complete Blood Count w/Diff (Routine) Location: None Selected Ordered By: Deana Carrillo Comprehensive Metabolic Panel (Routine) Location: None Selected Ordered By: Deana Carrillo Magnesium (Routine) Facility: [facility] - Location: Laboratory Outpatient - [facility] Ordered By: Deana Carrillo Discharge Data Discharge Date/Time-TO BE ENTERED AT DEPARTURE: 09/05/22 12:18 DS: Summary Time Spent with Patient providing and/or coordinating discharge services: Greater than 30 minutes Status at Discharge Functional status at discharge: independent ambulation Overall status at discharge: patient is progressing back to baseline Mental Status: mental status grossly normal Speech and Movement: speech and movement normal Mood: congruent mood Affect: labile affect and blunted Exam Psych Mental Status: mental status grossly normal Speech and Movement: speech and movement normal Mood: congruent mood Affect: labile affect and blunted DS: Data Vitals/I&O Vitals and I&O: Vital Signs Temperature 37.7 C H 09/05/22 08:01 Temperature Source Tympanic 09/05/22 08:01 Pulse 95 H 09/05/22 08:01 Pulse Rhythm Regular 09/05/22 09:18 Pulse 71 08/29/22 02:16 Respiratory Rate 19 09/05/22 08:01 Respiratory Effort Normal, Non-Labored 09/05/22 09:18 Respiratory Depth Normal 09/05/22 09:18 Respiratory Pattern Normal 09/05/22 09:18 Blood Pressure 136/92 H 09/05/22 08:01 Blood Pressure Mean 62 08/30/22 20:35 Blood Pressure Position Supine 08/30/22 20:35 Pulse Oximetry 93 09/05/22 12:15 Oxygen Delivery Method Room Air 09/05/22 12:15 Oxygen Flow Rate 0 09/05/22 12:15 Pain Level 7 09/05/22 03:10 Comment BP called over radio 09/02/22 14:23 Intake & Output 09/04/22 09/05/22 09/05/22 23:59 11:59 23:59 Intake Total 1757.5 / 2757.5 1517.5 / 1517.5 Output Total 200 / 200 Balance 1557.5 / 2557.5 1517.5 / 1517.5 Intake: IV 1757.5 / 2757.5 1517.5 / 1517.5 Output: Urine 200 / 200 Other: Urine Color Yellow Urine Appearance Clear Urine Odor Normal Comment pt has been voiding independently in toilet all shift, pt was notified that the next void needs to be collected for UA. Voiding Methods Urinal Data Completed and Pending Labs on day of discharge: Labs from last 24 hours 09/05/22 09/04/22 09/04/22 08:00 23:22 22:00 WBC Cancelled RBC Cancelled Hgb Cancelled Hct Cancelled MCV Cancelled MCH Cancelled MCHC Cancelled RDW Cancelled Plt Count Cancelled MPV Cancelled Immature Gran % Cancelled Neutrophils % Cancelled Band Neutrophils % Cancelled Lymphocytes % Cancelled Atypical Lymphs % Cancelled Monocytes % Cancelled Eosinophils % Cancelled Basophils % Cancelled Metamyelocytes % Cancelled Myelocytes % Cancelled Promyelocytes % Cancelled Other Cells % Cancelled Nucleated RBC % Cancelled Absolute Neutrophils Cancelled Absolute Lymphocytes Cancelled Absolute Monocytes Cancelled Absolute Eosinophils Cancelled Absolute Basophils Cancelled RBC Morphology Cancelled Polychromasia Cancelled Hypochromasia Cancelled Poikilocytosis Cancelled Basophilic Stippling Cancelled Anisocytosis Cancelled Microcytosis Cancelled Macrocytosis Cancelled Spherocytes Cancelled Tear Drop Cells Cancelled Ovalocytes Cancelled Stomatocytes Cancelled [place] Bodies Cancelled Noemy Cells/Echinocytes Cancelled Acanthocytes (Spur) Cancelled Schistocytes Cancelled Urine Color Yellow Urine Clarity Clear Urine pH 6.0 Ur Specific Kinsey 1.010 Urine Protein Negative Urine Ketones 15 H Urine Blood Negative Urine Nitrite Negative Urine Bilirubin Negative Urine Urobilinogen 0.2 Ur Leukocyte Esterase Negative Urine Glucose Negative COVID-19 Source Nasopharynx SARS-CoV-2 (PCR) Negative Influenza Type A (PCR) Negative Influenza Type B (PCR) Negative RSV (PCR) Positive A* Preliminary micro results at discharge 09/04/22 05:08 Blood Culture - Preliminary Blood NO GROWTH 24 HOURS 09/04/22 04:58 Blood Culture - Preliminary Blood NO GROWTH 24 HOURS PFSH All Active Problems (Updated 09/04/22 @ 21:58 by Erlinda Vu DO) Has low fat diet (Acute) Discharge planning issues (Acute) Fever (Acute) Diarrhea (Acute) Postprandial RUQ pain (Acute) Angel Fire disease (Acute) Cholelithiasis without obstruction (Acute) Gastroenteritis (Acute) Acid reflux (Chronic) Nausea & vomiting (Acute) Hypokalemia (Acute) Rt inguinal pain (Acute) Eye twitch (Acute) Cellulitis (Acute) Thyroid dysfunction (Acute) 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 Needs to remain on lifelong anti-caog Hereditary spherocytosis (Chronic) s/p splenectomy in 1991. Biliary colic (Acute) Elevated serum protein level (Acute) Chest pain (Acute) Hand pain, right (Acute) Pain, rectal (Acute) Abdominal pain (Acute) Left-sided thoracic back pain (Acute) Cholelithiasis (Acute) Vomiting (Acute) Acute epigastric pain (Acute) Leg numbness (Acute) Rash (Acute) Upper abdominal pain (Acute) GERD with esophagitis (Acute) Anxiety (Chronic) extreme and crippling Medical History (Updated 09/04/22 @ 21:58 by Erlinda Vu DO) Acquired hypercoagulable state due to splenectomy Bipolar disorder DVT of axillary vein, acute bilateral (~02/2019) [facility] [place] Esophageal foreign body (~05/2018) Esophagitis determined by endoscopy (~05/2018) Essential hypertension Hyperbilirubinemia PAH (pulmonary artery hypertension) 02/28/19 [facility] [place] ECHO (MILD) Presence of vena cava filter Pulmonary embolism, bilateral (~02/2019) [facility] [place] Dr. Flores [facility] [place] 08/2019; RECURRENT Thrombocytosis after splenectomy Tricuspid regurgitation 02/28/19 [facility] [place] ECHO; MILD TO MOD Surgical History Abnormal findings on esophagogastroduodenoscopy (EGD) H/O hernia repair Unspecified site, repaired x3 H/O superior vena cava filter placement History of splenectomy Priapism (~08/2019) 09/11/19 [facility] [place]; S/P PENILE SHUNT (AL-GHORAB) S/P IVC filter (~08/2019) [facility] [place] S/P partial thyroidectomy Social History Smoking/Tobacco Use Status: Never Smoking risk assessment performed?: Yes Alcohol Intake: never Drug use: Never Substance use type: does not use Current gender identity: male Do you feel safe at home: Yes Do you feel safe in your relationship?: Yes Time Spent with Patient Time Spent with Patient: <45 minutes Time was spent: preparing to see the patient(eg.review tests), ordering medications,tests, procedures, referring, communicating with other health continuum of care manager, counseling the patient and care coordination
--- NOTE | 2022-09-05 19:57 | PDOC.HHF2F ---
Home Health Referral Home Health Orders Clinical synopsis of why skilled professionals are needed: This is a 36-year-old male patient with past medical history of chronic abdominal symptoms with recurrent ED visits and history of cholelithiasis and elevated total bilirubin who presented to the [facility] ED quite often with extreme anxiety which is incapacitating, mostly wearing winter hats and neck warmers as mask to cover his face.? He hardly opens his eyes when conversing.? He had a 5-day history of what started out as watery diarrhea and then nausea and vomiting with decreased intake for 2 to 3 days because of the symptoms having recurrence with even water.? Water would ?burn his esophagus?.? He is on famotidine and Protonix chronically and always has an elevated bilirubin thought to be possibly Guilbert's disease.?He denied blood in his emesis or stool despite being on Eliquis for chronic thromboembolic phenomena prevention having had pulmonary emboli and splenectomy with hypercoagulable state afterwards.? It continues to be unclear if the etiology of his elevated total bilirubin is Guilbert's disease.?He was not having gallbladder colic or evidence of pancreatitis, reporting most of his pain in the epigastrium with guarding.? He was admitted for IV fluids and bowel rest as well as potassium repletion with patient having chronic potassium loss through his gut by history.?Pain management with IV Dilaudid and antiemetics with Zofran.? He is a full code. MRCP was suggested by surgery but family and patient did not want to have this performed, and may not be able to have it because of his IVC filter. 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 His lipase was normal. The patient had COVID-19 infection remotely being more than 4 weeks.? He has chronic anxiety that is managed at home with Clonazepam.? He was give Ativan as needed during the hospital stay and Sertraline was continued.? He has hypokalemia, an acute on chronic problem for him, repleted during hospital stay. ?Surgery did see him and advised bowel rest with possible colonoscopy. He does have hypercoagulable state status post penectomy and will be on Eliquis lifelong. He is a full code.? The patient has had no fever or show of blood in his vomit or diarrhea.? He denied any syncope or palpitations.? Anesthesia @ [facility] declined his case secondary to risk.? We discussed transfer with [facility] and they declined stating he can be seen as planned in their clinic on September 23. ?He was discharged to home with family, stable, with referral to home health. ? Medical diagnosis necessitation home health referral: Severe chronic anxiety; cholelithiasis; Guilbert's disease; GERD; Hypokalemia; Hx of pulmonary embolism; Spherocytosis Registered Nurse: Check all that apply Instruct on new or changed medication(s)/assess compliance: Ordered Assess for exacerbation of medical condition, instruct patient/caregivers on signs and symptoms to report for early detection: Ordered Other: Draw CBC w diff, CMP, Mag 09/08/2022; results to Dr Flores Physical Therapist: Check all that apply Increase strength & endurance for safe mobility at home: Ordered To design/establish home maintenance program: Ordered Fall reduction therapy program for patient with history of frequent falls: Ordered Home safety evaluation and teaching/gait training including stair management (if applicable): Ordered Occupational Therapist: Evaluate and treat for patient unable to perform ADL/IADL/self-care: Ordered Upper extremity strengthening, range and motion: Ordered Software Sales Manager: Assist with community resources: Ordered Assist with intermediate school teacher care planning: Ordered Home Bound Status Patient has a condition such that leaving home is medically contraindicated (Describe): disabled; extreme chronic anxiety; spherocytosis Describe why leaving home would require a considerable and taxing effort: Confusion Encounter Date and Reason: I certify that a FTF encounter for this patient was performed on September 05, 2022 and that such encounter was related to the primary reason the patient requires home health services. The encounter was conducted in the following manner: By me as the certifying physician, DISTANCE EDUCATION DIRECTOR, PA or By an inpatient physician, DISTANCE EDUCATION DIRECTOR or PA during an inpatient stay who communicated findings to me, Certification And Authentication I certify that I composed the above information based on my clinical judgment relating to this patient's medical condition and, if applicable, clinical findings communicated to me by the NPP or inpatient physician who performed the FTF encounter. Name of Provider that will be monitoring home health services: José Miguel Flores
== END 2022-09-05 12:18 | disposition home health service (06) | DRG 392 ==
LOC: ER 08-29 01:41 → MS 08-29 02:19 → ICU 08-30 20:43 → MS 08-31 15:58
PROVIDERS: Internal Medicine; Nurse Practitioner Acute Care; Nurse Practitioner Family; Physician Assistant; Surgery; Admitting Provider Family Medicine; Emergency Provider Physician Assistant; PCP Family Medicine; Visit Provider Family Medicine
DX: K52.9 Noninfective gastroenteritis and colitis, unspecified (principal); D68.69 Other thrombophilia; D68.61 Antiphospholipid syndrome; R11.2 Nausea with vomiting, unspecified; E87.6 Hypokalemia; D58.0 Hereditary spherocytosis; Z90.81 Acquired absence of spleen; Z86.711 Personal history of pulmonary embolism; Z79.01 Long term (current) use of anticoagulants; K21.00 Gastro-esophageal reflux disease with esophagitis, without bleeding; F31.9 Bipolar disorder, unspecified; Z86.718 Personal history of other venous thrombosis and embolism; I10 Essential (primary) hypertension; I27.20 Pulmonary hypertension, unspecified; I07.1 Rheumatic tricuspid insufficiency; D75.838 Other thrombocytosis; F41.9 Anxiety disorder, unspecified; K80.20 Calculus of gallbladder without cholecystitis without obstruction; E80.6 Other disorders of bilirubin metabolism; E80.4 Gilbert syndrome; E07.9 Disorder of thyroid, unspecified; R50.9 Fever, unspecified; Z95.828 Presence of other vascular implants and grafts
CPT/HCPCS: 36415; 80048; 80053; 80076; 82248; 83690; 85027; 85652; 86704; 86709; 86803; 86850; 86900; 86901; 87040; 87340; 87493; 87505; 87635; 87637; 96361; 96374; 96375; 99223; 99231; 99232; 99233; 99285; 74177; 74246; 76705; 81003; 82140; 82977; 83605; 83630; 83735; 84484; 85025; 85610; 86880; 93306; 99239; J0131; J1170; J1650; J2060; J2405; J3470; J3480; J3490

== ENCOUNTER 2022-09-10 16:14 | Outpatient (REF) | payer MEDICARE, MEDICAID, SELFPAY ==
[2022-09-10 13:15] LABS: Abs Immature Grans 0.04 10^3/uL (0.0-0.06); Absolute Basophil Count 0.05 10^3/uL (0.0-0.2); Absolute Eosinophil Count 0.17 10^3/uL (0.0-0.7); Absolute Lymphocyte Count 3.53 10^3/uL (1.2-3.4); Absolute Monocyte Count 1.13 10^3/uL (0.1-0.8); Absolute Neutrophil Count 8.19 10^3/uL (1.2-6.7); Basophils % 0.4; Eosinophils % 1.3; HCT 48.9 % (40.0-50.0); HGB 16.3 g/dL (13.5-17.5); Immature Grans % 0.3; Lymphocytes % 26.9; MCH 30.4 pg (27.0-33.0); MCHC 33.3 % (32.0-36.0); MCV 91 fL (80-95); MPV 10.9 fL (8.0-11.0); Monocytes % 8.6; Neutrophils % 62.5; Platelet Count 542 10^3/uL (130-400); RBC 5.36 10^6/uL (4.36-5.78); RDW-SD 49.3 fL; WBC 13.11 10^3/uL (4.4-10.8)
[2022-09-10 13:18] LABS: Anion Gap 7.7 mmol/L (3-11); BUN 10 mg/dL (7-18); CO2 25.3 mmol/L (21.0-32.0); Calcium 9.9 mg/dL (8.5-10.1); Chloride 99 mmol/L (98-107); Estimated GFR 99.41 (mL/min/1.73m2); Glucose 104 mg/dL (74-106); Sodium 132 mmol/L (136-145)
[2022-09-10 13:19] LABS: Potassium 5.1 mmol/L (3.5-5.1)
== END 2022-09-10 16:15 | disposition home or self-care (01) ==
LOC: LBN 16:14
PROVIDERS: PCP Family Medicine; Visit Provider Family Medicine
DX: R11.2 Nausea with vomiting, unspecified (principal); R19.7 Diarrhea, unspecified; K80.20 Calculus of gallbladder without cholecystitis without obstruction
CPT/HCPCS: 80048; 85025

== ENCOUNTER → 2023-02-09 01:49 | Outpatient (CLI) | payer MEDICARE, MEDICAID, SELFPAY ==
--- NOTE | 2023-02-09 11:15 | DI.US_ITS ---
Exam(s) US ABDOMEN LIMITED EXAM: US ABDOMEN LIMITED CLINICAL HISTORY: POSTPRANDIAL RUQ PAIN, BILIARY COLIC, K80.50 TECHNIQUE: Ultrasound abdomen performed using standard protocol. COMPARISON: US US ABDOMEN LIMITED from 09/01/2022 FINDINGS: LIVER: Normal size. Normalechogenicity. No focal liver lesions are seen.. GALLBLADDER: cholelithiasis. No evidence of wall thickening. No pericholecystic fluid identified. FOUNTAIN'S SIGN: Negative. BILIARY SYSTEM: No intrahepatic or extrahepatic biliary ductal dilation. RIGHT KIDNEY: Normal size. No evidence of renal calculi. No evidence of hydronephrosis. No suspicious renal mass. No cyst identified. PANCREAS: Normal where visualized. ABDOMINAL AORTA AND IVC: Visualized portions normal caliber. ASCITES: None seen. IMPRESSION: Cholelithiasis. DATA REPOSITORY:
== END ==
PROVIDERS: PCP Family Medicine; Visit Provider Surgery
DX: K80.00 Calculus of gallbladder with acute cholecystitis without obstruction (principal)
CPT/HCPCS: 76705

== ENCOUNTER 2023-02-25 03:33 | Outpatient (CLI) | payer MEDICARE, MEDICAID, SELFPAY ==
[2023-02-25 10:21] LABS: TSH (W/Ref FT4) 2.99 uIU/mL (0.36-3.74)
[2023-03-02 09:36] LABS: Testosterone, Total 380 ng/dL (240-950)
== END 2023-02-25 03:34 | disposition home or self-care (01) ==
LOC: LBO 03:34
PROVIDERS: PCP Family Medicine; Visit Provider Family Medicine
DX: Z00.00 Encounter for general adult medical examination without abnormal findings (principal); E03.9 Hypothyroidism, unspecified
CPT/HCPCS: 36415; 84402; 84403; 84443

== ENCOUNTER 2023-05-04 12:47 | Emergency (ER) | payer OTHER, MEDICAID, SELFPAY ==
[2023-05-04] VITALS (26 sets, daily range): BP systolic 108–144; BP diastolic 47–64; PULSE 52–70; RESP 9–44; TEMP 37.2; O2SAT 87–99
--- NOTE | 2023-05-04 12:45 | RT.EKG_ITS ---
APPROVED REPORT Exam: Resting ECG Reason for Exam: sob Patient Location: E HR:62 bpm ECG Measurements Heart Rate 62 AXIS LA 173 P 52 QRSd 104 QRS 68 QT 410 T 61 QTc 416 Conclusion Sinus rhythm...normal P axis, V-rate 60- 99 Probable left ventricular hypertrophy...multiple LVH criteria
[2023-05-04 13:26] LABS: Lactate 0.9 mmol/L (0.6-1.4)
[2023-05-04] MEDS: Albuterol/Ipratropium 3 ML UPD VIAL UPD (13:26)
[2023-05-04 13:29] LABS: Abs Immature Grans 0.03 10^3/uL (0.0-0.06); Absolute Basophil Count 0.04 10^3/uL (0.0-0.2); Absolute Lymphocyte Count 4.99 10^3/uL (1.2-3.4); Absolute Neutrophil Count 7.35 10^3/uL (1.2-6.7); Basophils % 0.3; HCT 44.3 % (40.0-50.0); Immature Grans % 0.2; Lymphocytes % 36.3; MCHC 33.9 % (32.0-36.0); MCV 92 fL (80-95); MPV 9.9 fL (8.0-11.0); Monocytes % 7.8; Neutrophils % 53.4; Platelet Count 465 10^3/uL (130-400); RBC 4.84 10^6/uL (4.36-5.78); RDW 13.4 % (11.8-14.1); RDW-SD 45.2 fL; WBC 13.76 10^3/uL (4.4-10.8)
[2023-05-04 13:35] LABS: Absolute Eosinophil Count 0.28 10^3/uL (0.0-0.7); Absolute Monocyte Count 1.07 10^3/uL (0.1-0.8)
[2023-05-04 13:49] LABS: ALT 34 U/L (16-63); AST 26 U/L (15-37); Albumin 3.8 g/dL (3.4-5.0); Alkaline Phosphatase 62 U/L (46-116); Anion Gap 10.7 mmol/L (3-11); BUN 29 mg/dL (7-18); CO2 27.3 mmol/L (21.0-32.0); Calcium 9.3 mg/dL (8.5-10.1); Chloride 99 mmol/L (98-107); Glucose 104 mg/dL (74-106); Lipase 62 U/L (16-77); NT-proBNP 62 pg/mL (<300); Potassium 3.4 mmol/L (3.5-5.1); Sodium 137 mmol/L (136-145); Total Protein 7.7 g/dL (6.4-8.2); Troponin I < 50 ng/L (<or=60)
[2023-05-04 14:13] LABS: Procalcitonin < 0.1 ng/mL
--- NOTE | 2023-05-04 14:24 | ED.GENADUL_ITS ---
Discharge Plan Disposition Patient Disposition: Home Condition: Stable Discharge Details Clinical Impression: Bronchitis, Pulmonary embolism on right Primary Care Provider: José Miguel Flores ED Provider: Amanda Diego Augusta Meds and New Rx's Prescriptions: Continued famotidine [Pepcid] 20 mg tablet 20 mg PO DAILY Qty: 90 3RF hydrocortisone 2.5 % ointment 1 applic TP BID PRN (Reason: neck rash) Qty: 28.35 1RF betamethasone dipropionate 0.05 % ointment 1 applic topical BID Qty: 15 0RF Rx Instructions: apply to infected nailbed (right great toe) 2x daily diclofenac sodium [Voltaren Arthritis Pain] 1 % gel 2 g topical QID PRN (Reason: back pain) Qty: 150 1RF Rx Instructions: fluticasone propionate 50 mcg/actuation spray,suspension See Rx Instructions .ROUTE .COMPLEX Qty: 16 11RF Dose Instruction: USE ONE SPRAY IN EACH NOSTRIL ONCE DAILY Rx Instructions: USE ONE SPRAY IN EACH NOSTRIL ONCE DAILY epinephrine [EpiPen 2-Farrukh] 0.3 mg/0.3 mL auto-injector 0.3 mg IM ONCE Qty: 2 0RF Rx Instructions: as a single dose triamcinolone acetonide 0.1 % cream 1 applic TP BID Qty: 30 1RF Rx Instructions: apply for 10 days or until healed, whichever comes first sertraline 100 mg tablet 100 mg PO DAILY Qty: 90 3RF doxepin 10 mg capsule 10 mg PO BID Qty: 60 1RF clonazepam 1 mg tablet 1 mg PO BID PRN (Reason: anxiety) Qty: 60 5RF pantoprazole 40 mg tablet,delayed release (DR/EC) 40 mg PO BID Qty: 180 3RF cetirizine [Zyrtec] 10 mg tablet 10 mg PO DAILY Qty: 90 3RF cyclobenzaprine 10 mg tablet 10 mg PO TID PRN (Reason: muscle spasm) Qty: 20 1RF acetaminophen [Tylenol Extra Strength] 500 mg tablet 1,000 mg PO TID PRN (Reason: pain/fever) Qty: 270 4RF risperidone [Risperdal] 0.5 mg tablet 0.5 mg PO BID Qty: 60 11RF ursodiol 300 mg capsule 300 mg PO Q8H Qty: 90 0RF hydromorphone [Dilaudid] 2 mg tablet 2 mg PO Q4H Rx Instructions: 04/29/23 Per [facility] Surgical-Oncology. 9 tablets ordered. -hb docusate sodium [Colace] 100 mg capsule 100 mg PO BID Qty: 180 3RF benzonatate 200 mg Capsule 200 mg PO TID PRN PRN (Reason: Cough) Qty: 30 0RF sucralfate 1 gram Tablet 1 g PO AC & HS Qty: 120 0RF famotidine 20 mg tablet 20 mg PO BID Qty: 90 3RF Changed apixaban 5 mg tablet 10 mg PO BID 7 Days Qty: 28 3RF Rx Instructions: Take 10 mg twice daily x 7 days then resume the 5mg twice daily Discharge Instructions Instructions: Pulmonary Embolism (ED) Additional Instructions: Please increase your Eliquis to 10 mg twice daily for the next 7 days. Thereafter you will resume your [address] shows you have 2 small PEs noted to the right side of your lung. At this time is you are stable enough to be discharged home. Follow up with primary care provider in 3-5 days. Return to ED sooner if any worsening pain, shortness of breath, or concerns. Increase oral fluids. Please follow-up with your assistant professor of anthropology at [facility] if you have 1. I would al so suggest that you speak with the surgeon that did the surgery to let them know. Referrals: José Miguel Flores MD [Primary Care Provider] - 3 days Discharge Data Discharge Date/Time-TO BE ENTERED AT DEPARTURE: 05/04/23 17:03 Medical Decision Making <JORGE Saavedra - Last Filed: 05/06/23 17:22> This 37-year-old male presents with report of shortness of breath and chest tightness started yesterday. Patient has a complex history with coagulopathy and status post cholecystectomy on Wednesday, felt fine until Wednesday evening Patient denies any chest discomfort and tingling in his legs. He has abdominal pain from surgery but denies any worsening. States he had chills at home but denies known fever No hypoxia, aside from some tachypnea vitals are relatively stable oxygenation 98% oral temperature 98.9 At baseline mentation, soft-spoken leukocytosis 13,000, mild shift, potassium 3.4, will give potassium supplementation BUN 29 possible dehydration, given fluids, given comorbidity presenting exam Will order CTA for PE and CT abdomen and pelvis On exam, patient is alert and oriented, soft-spoken, lungs are wheezy and diminished throughout, after 2 DuoNebs, he has improved aeration with rhonchi CT pending, abdominal pelvis CT pending Remainder of labs do not show acute abnormality, no calf tenderness or swelling appreciated, neurovascularly intact all 4 extremities Abdominal surgical sites without dehiscence, mild diffuse abdominal tenderness consistent with recent surgery, no acute abdomen CT results discussed with Dr. Smart, radiologist, PEs and right upper lobe and right lower lobe, patient is anticoagulated on Eliquis and IVC filter in place, will consult with hospitalist regarding management care transitioned to at 1600 pending hematology/hospitalist consultation for management of PE's <Amanda Diego NP - Last Filed: 05/04/23 17:26> Medical Records Medical records narrative: 1606: Care assumed from provider (JORGE Saavedra) Please see their initial HPI, PE, and documentation. Discussed patient details and case and pending workup and disposition. Patient is hemodynamically stable, and alert and oriented. At the time of signout awaiting consultation with hospitalist for admission for PE status postcholecystectomy on Wednesday. Patient presented with chest pain shortness of breath status post surgery he does have IVC filter in place and he is anticoagulated on Eliquis. He was off Eliquis for approximately 5 days prior to the surgery. 1609: Spoke with Dr. Cook who is on hospitalist, she reccommends RA Road test and if his o2 sat is ok, he can be discharged with increasing his Eliquis to 10mg BID x 1 week then resuming his 5mg Eliquis BID. 1626: Informed by operations staff specialist security ED staff that road test patient's O2 sat remained above 95% on room air. We will plan to discharge with prescription for Eliquis 10 mg twice daily for the next 7 days. We will instructed follow-up with assistant professor of anthropology and PCP and will discuss strict return instructions and home care. Informed by operations staff specialist security that patient is complaining of some abdominal pain and after getting up and walking around. We will give Tylenol and his 10 mg of his night dose of Eliquis here in the department prior to discharge. This text was generated using Nuance dictation system, please disregard any oddities of phrase or misspellings. Lab Data Lab results reviewed: Yes I reviewed the patient's lab results. Labs: 05/04/23 13:05 Blood Blood Culture - Pending 05/04/23 13:05 Blood Blood Culture - Pending Laboratory Tests Range/Units 05/04/23 05/04/23 05/04/23 13:05 13:05 13:05 WBC (4.4-10.8) 10^3/uL 13.76 H RBC (4.36-5.78) 10^6/uL 4.84 Hgb (13.5-17.5) g/dL 15.0 Hct (40.0-50.0) % 44.3 MCV (80-95) fL 92 MCH (27.0-33.0) pg 31.0 MCHC (32.0-36.0) % 33.9 RDW (11.8-14.1) % 13.4 Plt Count (130-400) 10^3/uL 465 H MPV (8.0-11.0) fL 9.9 Immature Gran % 0.2 Neutrophils % 53.4 Lymphocytes % 36.3 Monocytes % 7.8 Eosinophils % 2.0 Basophils % 0.3 Nucleated RBC % (0.0-0.3) % 0.0 Absolute Neutrophils (1.2-6.7) 10^3/uL 7.35 H Absolute Lymphocytes (1.2-3.4) 10^3/uL 4.99 H Absolute Monocytes (0.1-0.8) 10^3/uL 1.07 H Absolute Eosinophils (0.0-0.7) 10^3/uL 0.28 Absolute Basophils (0.0-0.2) 10^3/uL 0.04 VBG Lactate (0.6-1.4) mmol/L 0.9 Sodium Cancelled 137 Potassium Cancelled 3.4 L Chloride Cancelled Carbon Dioxide Anion Gap BUN Creatinine Est GFR (CKD-EPI 2020) Glucose Calcium Total Bilirubin AST ALT Alkaline Phosphatase Troponin I (<or=60) ng/L NT-Pro-B Natriuret Pep (<300) pg/mL Total Protein Albumin Lipase Procalcitonin ng/mL Urine Color (Yellow) Urine Clarity (Clear) Urine pH (5-8) Ur Specific [place] (1.005-1.025) Urine Protein (Negative) mg/dL Urine Ketones (Negative) mg/dL Urine Blood (Negative) Urine Nitrite (Negative) Urine Bilirubin (Negative) Urine Urobilinogen (Up to 0.2) mg/dL Ur Leukocyte Esterase (Negative) Urine Glucose (Negative) mg/dL COVID-19 Source SARS-CoV-2 (PCR) (Negative) Influenza Type A (PCR) (Negative) Influenza Type B (PCR) (Negative) RSV (PCR) (Negative) Range/Units 05/04/23 05/04/23 05/04/23 13:05 13:05 13:05 WBC (4.4-10.8) 10^3/uL RBC (4.36-5.78) 10^6/uL Hgb (13.5-17.5) g/dL Hct (40.0-50.0) % MCV (80-95) fL MCH (27.0-33.0) pg MCHC (32.0-36.0) % RDW (11.8-14.1) % Plt Count (130-400) 10^3/uL MPV (8.0-11.0) fL Immature Gran % Neutrophils % Lymphocytes % Monocytes % Eosinophils % Basophils % Nucleated RBC % (0.0-0.3) % Absolute Neutrophils (1.2-6.7) 10^3/uL Absolute Lymphocytes (1.2-3.4) 10^3/uL Absolute Monocytes (0.1-0.8) 10^3/uL Absolute Eosinophils (0.0-0.7) 10^3/uL Absolute Basophils (0.0-0.2) 10^3/uL VBG Lactate (0.6-1.4) mmol/L Sodium Potassium Chloride 99 Carbon Dioxide Cancelled 27.3 Anion Gap Cancelled 10.7 BUN Cancelled Creatinine Est GFR (CKD-EPI 2020) Glucose Calcium Total Bilirubin AST ALT Alkaline Phosphatase Troponin I (<or=60) ng/L NT-Pro-B Natriuret Pep (<300) pg/mL Total Protein Albumin Lipase Procalcitonin ng/mL Urine Color (Yellow) Urine Clarity (Clear) Urine pH (5-8) Ur Specific [place] (1.005-1.025) Urine Protein (Negative) mg/dL Urine Ketones (Negative) mg/dL Urine Blood (Negative) Urine Nitrite (Negative) Urine Bilirubin (Negative) Urine Urobilinogen (Up to 0.2) mg/dL Ur Leukocyte Esterase (Negative) Urine Glucose (Negative) mg/dL COVID-19 Source SARS-CoV-2 (PCR) (Negative) Influenza Type A (PCR) (Negative) Influenza Type B (PCR) (Negative) RSV (PCR) (Negative) Range/Units 05/04/23 05/04/23 05/04/23 13:05 13:05 13:05 WBC (4.4-10.8) 10^3/uL RBC (4.36-5.78) 10^6/uL Hgb (13.5-17.5) g/dL Hct (40.0-50.0) % MCV (80-95) fL MCH (27.0-33.0) pg MCHC (32.0-36.0) % RDW (11.8-14.1) % Plt Count (130-400) 10^3/uL MPV (8.0-11.0) fL Immature Gran % Neutrophils % Lymphocytes % Monocytes % Eosinophils % Basophils % Nucleated RBC % (0.0-0.3) % Absolute Neutrophils (1.2-6.7) 10^3/uL Absolute Lymphocytes (1.2-3.4) 10^3/uL Absolute Monocytes (0.1-0.8) 10^3/uL Absolute Eosinophils (0.0-0.7) 10^3/uL Absolute Basophils (0.0-0.2) 10^3/uL VBG Lactate (0.6-1.4) mmol/L Sodium Potassium Chloride Carbon Dioxide Anion Gap BUN 29 H Creatinine Cancelled 1.0 Est GFR (CKD-EPI 2020) Cancelled 98.80 Glucose Cancelled Calcium Total Bilirubin AST ALT Alkaline Phosphatase Troponin I (<or=60) ng/L NT-Pro-B Natriuret Pep (<300) pg/mL Total Protein Albumin Lipase Procalcitonin ng/mL Urine Color (Yellow) Urine Clarity (Clear) Urine pH (5-8) Ur Specific [place] (1.005-1.025) Urine Protein (Negative) mg/dL Urine Ketones (Negative) mg/dL Urine Blood (Negative) Urine Nitrite (Negative) Urine Bilirubin (Negative) Urine Urobilinogen (Up to 0.2) mg/dL Ur Leukocyte Esterase (Negative) Urine Glucose (Negative) mg/dL COVID-19 Source SARS-CoV-2 (PCR) (Negative) Influenza Type A (PCR) (Negative) Influenza Type B (PCR) (Negative) RSV (PCR) (Negative) Range/Units 05/04/23 05/04/23 05/04/23 13:05 13:05 13:05 WBC (4.4-10.8) 10^3/uL RBC (4.36-5.78) 10^6/uL Hgb (13.5-17.5) g/dL Hct (40.0-50.0) % MCV (80-95) fL MCH (27.0-33.0) pg MCHC (32.0-36.0) % RDW (11.8-14.1) % Plt Count (130-400) 10^3/uL MPV (8.0-11.0) fL Immature Gran % Neutrophils % Lymphocytes % Monocytes % Eosinophils % Basophils % Nucleated RBC % (0.0-0.3) % Absolute Neutrophils (1.2-6.7) 10^3/uL Absolute Lymphocytes (1.2-3.4) 10^3/uL Absolute Monocytes (0.1-0.8) 10^3/uL Absolute Eosinophils (0.0-0.7) 10^3/uL Absolute Basophils (0.0-0.2) 10^3/uL VBG Lactate (0.6-1.4) mmol/L Sodium Potassium Chloride Carbon Dioxide Anion Gap BUN Creatinine Est GFR (CKD-EPI 2020) Glucose 104 Calcium Cancelled 9.3 Total Bilirubin Cancelled 1.0 AST Cancelled ALT Alkaline Phosphatase Troponin I (<or=60) ng/L NT-Pro-B Natriuret Pep (<300) pg/mL Total Protein Albumin Lipase Procalcitonin ng/mL Urine Color (Yellow) Urine Clarity (Clear) Urine pH (5-8) Ur Specific [place] (1.005-1.025) Urine Protein (Negative) mg/dL Urine Ketones (Negative) mg/dL Urine Blood (Negative) Urine Nitrite (Negative) Urine Bilirubin (Negative) Urine Urobilinogen (Up to 0.2) mg/dL Ur Leukocyte Esterase (Negative) Urine Glucose (Negative) mg/dL COVID-19 Source SARS-CoV-2 (PCR) (Negative) Influenza Type A (PCR) (Negative) Influenza Type B (PCR) (Negative) RSV (PCR) (Negative) Range/Units 05/04/23 05/04/23 05/04/23 13:05 13:05 13:05 WBC (4.4-10.8) 10^3/uL RBC (4.36-5.78) 10^6/uL Hgb (13.5-17.5) g/dL Hct (40.0-50.0) % MCV (80-95) fL MCH (27.0-33.0) pg MCHC (32.0-36.0) % RDW (11.8-14.1) % Plt Count (130-400) 10^3/uL MPV (8.0-11.0) fL Immature Gran % Neutrophils % Lymphocytes % Monocytes % Eosinophils % Basophils % Nucleated RBC % (0.0-0.3) % Absolute Neutrophils (1.2-6.7) 10^3/uL Absolute Lymphocytes (1.2-3.4) 10^3/uL Absolute Monocytes (0.1-0.8) 10^3/uL Absolute Eosinophils (0.0-0.7) 10^3/uL Absolute Basophils (0.0-0.2) 10^3/uL VBG Lactate (0.6-1.4) mmol/L Sodium Potassium Chloride Carbon Dioxide Anion Gap BUN Creatinine Est GFR (CKD-EPI 2020) Glucose Calcium Total Bilirubin AST 26 ALT Cancelled 34 Alkaline Phosphatase Cancelled 62 Troponin I (<or=60) ng/L < 50 NT-Pro-B Natriuret Pep (<300) pg/mL 62 Total Protein Cancelled Albumin Lipase Procalcitonin ng/mL Urine Color (Yellow) Urine Clarity (Clear) Urine pH (5-8) Ur Specific [place] (1.005-1.025) Urine Protein (Negative) mg/dL Urine Ketones (Negative) mg/dL Urine Blood (Negative) Urine Nitrite (Negative) Urine Bilirubin (Negative) Urine Urobilinogen (Up to 0.2) mg/dL Ur Leukocyte Esterase (Negative) Urine Glucose (Negative) mg/dL COVID-19 Source SARS-CoV-2 (PCR) (Negative) Influenza Type A (PCR) (Negative) Influenza Type B (PCR) (Negative) RSV (PCR) (Negative) Range/Units 05/04/23 05/04/23 05/04/23 13:05 13:05 13:05 WBC (4.4-10.8) 10^3/uL RBC (4.36-5.78) 10^6/uL Hgb (13.5-17.5) g/dL Hct (40.0-50.0) % MCV (80-95) fL MCH (27.0-33.0) pg MCHC (32.0-36.0) % RDW (11.8-14.1) % Plt Count (130-400) 10^3/uL MPV (8.0-11.0) fL Immature Gran % Neutrophils % Lymphocytes % Monocytes % Eosinophils % Basophils % Nucleated RBC % (0.0-0.3) % Absolute Neutrophils (1.2-6.7) 10^3/uL Absolute Lymphocytes (1.2-3.4) 10^3/uL Absolute Monocytes (0.1-0.8) 10^3/uL Absolute Eosinophils (0.0-0.7) 10^3/uL Absolute Basophils (0.0-0.2) 10^3/uL VBG Lactate (0.6-1.4) mmol/L Sodium Potassium Chloride Carbon Dioxide Anion Gap BUN Creatinine Est GFR (CKD-EPI 2020) Glucose Calcium Total Bilirubin AST ALT Alkaline Phosphatase Troponin I (<or=60) ng/L NT-Pro-B Natriuret Pep (<300) pg/mL Total Protein 7.7 Albumin Cancelled 3.8 Lipase Cancelled 62 Procalcitonin ng/mL < 0.1 Urine Color (Yellow) Urine Clarity (Clear) Urine pH (5-8) Ur Specific [place] (1.005-1.025) Urine Protein (Negative) mg/dL Urine Ketones (Negative) mg/dL Urine Blood (Negative) Urine Nitrite (Negative) Urine Bilirubin (Negative) Urine Urobilinogen (Up to 0.2) mg/dL Ur Leukocyte Esterase (Negative) Urine Glucose (Negative) mg/dL COVID-19 Source SARS-CoV-2 (PCR) (Negative) Influenza Type A (PCR) (Negative) Influenza Type B (PCR) (Negative) RSV (PCR) (Negative) Range/Units 05/04/23 05/04/23 05/04/23 13:10 16:05 16:35 WBC (4.4-10.8) 10^3/uL RBC (4.36-5.78) 10^6/uL Hgb (13.5-17.5) g/dL Hct (40.0-50.0) % MCV (80-95) fL MCH (27.0-33.0) pg MCHC (32.0-36.0) % RDW (11.8-14.1) % Plt Count (130-400) 10^3/uL MPV (8.0-11.0) fL Immature Gran % Neutrophils % Lymphocytes % Monocytes % Eosinophils % Basophils % Nucleated RBC % (0.0-0.3) % Absolute Neutrophils (1.2-6.7) 10^3/uL Absolute Lymphocytes (1.2-3.4) 10^3/uL Absolute Monocytes (0.1-0.8) 10^3/uL Absolute Eosinophils (0.0-0.7) 10^3/uL Absolute Basophils (0.0-0.2) 10^3/uL VBG Lactate (0.6-1.4) mmol/L Sodium Potassium Chloride Carbon Dioxide Anion Gap BUN Creatinine Est GFR (CKD-EPI 2020) Glucose Calcium Total Bilirubin AST ALT Alkaline Phosphatase Troponin I (<or=60) ng/L < 50 NT-Pro-B Natriuret Pep (<300) pg/mL Total Protein Albumin Lipase Procalcitonin ng/mL Urine Color (Yellow) Yellow Urine Clarity (Clear) Clear Urine pH (5-8) 6.0 Ur Specific [place] (1.005-1.025) 1.010 Urine Protein (Negative) mg/dL Negative Urine Ketones (Negative) mg/dL Negative Urine Blood (Negative) Negative Urine Nitrite (Negative) Negative Urine Bilirubin (Negative) Negative Urine Urobilinogen (Up to 0.2) mg/dL 0.2 Ur Leukocyte Esterase (Negative) Negative Urine Glucose (Negative) mg/dL Negative COVID-19 Source Nasopharynx SARS-CoV-2 (PCR) (Negative) Negative Influenza Type A (PCR) (Negative) Negative Influenza Type B (PCR) (Negative) Negative RSV (PCR) (Negative) Negative HPI <JORGE Saavedra - Last Filed: 05/06/23 17:22> General Date/Time Provider Initiated Documentation: 05/04/23 12:52 . HPI Narrative: This complex 37-year-old male with history of anticardiolipin antibody, pulmonary embolism, DVT, chronic anticoagulation, IVC filter status post cholecystectomy on Wednesday at [facility] presents with report of shortness of breath and chest tightness that started yesterday. States he had chills and generalized paresthesias. Denies any pain in his chest. Was off Eliquis for 5 days preoperatively and has resumed it. Is not currently on antibiotics. Has chills, denies fever at home. States with any exertion he becomes quite short of breath. Denies hemoptysis. Denies known sick contacts. Related Data Home Medications Medication Instructions Recorded Confirmed hydrocortisone 2.5 % topical 1 applic topical BID PRN neck rash 04/04/20 08/29/22 ointment #28.35 grams betamethasone dipropionate 0.05 % 1 applic topical BID #15 grams 10/14/20 08/29/22 topical ointment diclofenac sodium 1 % topical gel 2 g topical QID PRN back pain #150 01/17/21 08/29/22 (Voltaren Arthritis Pain) grams fluticasone propionate 50 See Rx Instructions .Route 08/14/21 08/29/22 mcg/actuation nasal .COMPLEX #16 mL spray,suspension famotidine 20 mg tablet (Pepcid) 20 mg PO DAILY #90 tabs 08/29/21 08/29/22 epinephrine 0.3 mg/0.3 mL 0.3 mg (0.3 mL) IM ONCE #2 ea 01/03/22 08/29/22 injection, auto-injector (EpiPen 2-Farrukh) triamcinolone acetonide 0.1 % 1 applic topical BID hand rash #30 01/19/22 08/29/22 topical cream grams benzonatate 200 mg capsule 200 mg PO TID PRN PRN Cough #30 09/04/22 caps famotidine 20 mg tablet 20 mg PO BID #90 tabs 09/04/22 sucralfate 1 gram tablet 1 g PO AC & HS #120 tabs 09/04/22 sertraline 100 mg tablet 100 mg PO DAILY #90 tabs 09/07/22 doxepin 10 mg capsule 10 mg PO BID itching #60 caps 10/27/22 cetirizine 10 mg tablet (Zyrtec) 10 mg PO DAILY #90 tab-caps 12/24/22 clonazepam 1 mg tablet 1 mg PO BID PRN anxiety #60 tabs 12/24/22 cyclobenzaprine 10 mg tablet 10 mg PO TID PRN muscle spasm #20 12/24/22 tabs pantoprazole 40 mg tablet,delayed 40 mg PO BID #180 tabs 12/24/22 release acetaminophen 500 mg tablet 1,000 mg (2 x 500 mg) PO TID PRN 03/09/23 (Tylenol Extra Strength) pain/fever #270 tabs risperidone 0.5 mg tablet 0.5 mg PO BID #60 tabs 04/12/23 (Risperdal) ursodiol 300 mg capsule 300 mg PO Q8H #90 caps 04/15/23 hydromorphone 2 mg tablet 2 mg PO Q4H 04/30/23 (Dilaudid) docusate sodium 100 mg capsule 100 mg PO BID #180 caps 05/01/23 (Colace) apixaban 5 mg tablet 10 mg (2 x 5 mg) PO BID pulmonary 05/04/23 embolism 7 days #28 tabs Previous Rx's Medication Instructions Recorded hydrocortisone 2.5 % topical 1 applic topical BID PRN neck rash 04/04/20 ointment #28.35 grams betamethasone dipropionate 0.05 % 1 applic topical BID #15 grams 10/14/20 topical ointment diclofenac sodium 1 % topical gel 2 g topical QID PRN back pain #150 01/17/21 (Voltaren Arthritis Pain) grams fluticasone propionate 50 See Rx Instructions .Route 08/14/21 mcg/actuation nasal .COMPLEX #16 mL spray,suspension famotidine 20 mg tablet (Pepcid) 20 mg PO DAILY #90 tabs 08/29/21 epinephrine 0.3 mg/0.3 mL 0.3 mg (0.3 mL) IM ONCE #2 ea 01/03/22 injection, auto-injector (EpiPen 2-Farrukh) triamcinolone acetonide 0.1 % 1 applic topical BID hand rash #30 01/19/22 topical cream grams benzonatate 200 mg capsule 200 mg PO TID PRN PRN Cough #30 09/04/22 caps famotidine 20 mg tablet 20 mg PO BID #90 tabs 09/04/22 sucralfate 1 gram tablet 1 g PO AC & HS #120 tabs 09/04/22 sertraline 100 mg tablet 100 mg PO DAILY #90 tabs 09/07/22 doxepin 10 mg capsule 10 mg PO BID itching #60 caps 10/27/22 cetirizine 10 mg tablet (Zyrtec) 10 mg PO DAILY #90 tab-caps 12/24/22 clonazepam 1 mg tablet 1 mg PO BID PRN anxiety #60 tabs 12/24/22 cyclobenzaprine 10 mg tablet 10 mg PO TID PRN muscle spasm #20 12/24/22 tabs pantoprazole 40 mg tablet,delayed 40 mg PO BID #180 tabs 12/24/22 release acetaminophen 500 mg tablet 1,000 mg (2 x 500 mg) PO TID PRN 03/09/23 (Tylenol Extra Strength) pain/fever #270 tabs risperidone 0.5 mg tablet 0.5 mg PO BID #60 tabs 04/12/23 (Risperdal) ursodiol 300 mg capsule 300 mg PO Q8H #90 caps 04/15/23 docusate sodium 100 mg capsule 100 mg PO BID #180 caps 05/01/23 (Colace) apixaban 5 mg tablet 10 mg (2 x 5 mg) PO BID pulmonary 05/04/23 embolism 7 days #28 tabs Allergies Allergy/AdvReac Type Severity Reaction Status Date / Time cat's claw Allergy Unknown Verified 05/04/23 12:56 neomycin Allergy Unknown Verified 05/04/23 12:56 [From Neosporin ([id number])] polymyxin B Allergy Unknown Verified 05/04/23 12:56 [From Neosporin ([id number])] bacitracin Allergy Verified 05/04/23 12:56 dog dander Allergy Verified 05/04/23 12:56 beer Allergy Severe Anaphylaxsi Uncoded 05/04/23 12:56 s General Stated Complaint: RespSymp CONSTANCE: 3 PFSH <JORGE Saavedra - Last Filed: 05/06/23 17:22> All Active Problems (Updated 05/04/23 @ 16:27 by Amanda Diego NP) Pulmonary embolism on right (Acute) Bronchitis (Acute) Urinary frequency (Acute) [place] disease (Acute) Cholelithiasis without obstruction (Acute) Rt inguinal pain (Acute) Eye twitch (Acute) Cellulitis (Acute) Thyroid dysfunction (Acute) 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 due to disease classified elsewhere (Chronic) 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) Elevated serum protein level (Acute) Chest pain (Acute) Hand pain, right (Acute) Pain, rectal (Acute) Abdominal pain (Acute) Left-sided thoracic back pain (Acute) Cholelithiasis (Acute) Vomiting (Acute) Acute epigastric pain (Acute) Leg numbness (Acute) Rash (Acute) Upper abdominal pain (Acute) GERD with esophagitis (Acute) Anxiety (Chronic) extreme and crippling Medical History (Updated 05/04/23 @ 16:27 by Amanda Diego NP) Presence of vena cava filter Acquired hypercoagulable state due to splenectomy Thrombocytosis after splenectomy History of pulmonary embolism Patient has a 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 Needs to remain on lifelong anti-caog Hereditary spherocytosis s/p splenectomy in 1991. Hyperbilirubinemia Biliary colic COVID-19 Essential hypertension DVT of axillary vein, acute bilateral (~02/2019) [facility] Pulmonary embolism, bilateral (~02/2019) [facility] PE Dr. Flores [facility] 08/2019; RECURRENT Tricuspid regurgitation 02/28/19 [facility] ECHO; MILD TO MOD PAH (pulmonary artery hypertension) 02/28/19 [facility] ECHO (MILD) Esophagitis determined by endoscopy (~05/2018) Esophageal foreign body (~05/2018) Bipolar disorder Surgical History (Updated 04/30/23 @ 17:38 by Roxana Gilbert RN) S/P cholecystectomy 04/29/23 [facility] Surgical/Oncology. -hb H/O superior vena cava filter placement Abnormal findings on esophagogastroduodenoscopy (EGD) S/P partial thyroidectomy S/P IVC filter (~08/2019) [facility] Priapism (~08/2019) 09/11/19 [facility]; S/P PENILE SHUNT (AL-GHORAB) H/O hernia repair Unspecified site, repaired x3 History of splenectomy Social History Smoking/Tobacco Use Status: Never Smoking risk assessment performed?: Yes Alcohol Intake: never Drug use: Never Substance use type: does not use Current gender identity: male Do you feel safe at home: Yes Do you feel safe in your relationship?: Yes Course <JORGE Saavedra - Last Filed: 05/06/23 17:22> Vital Signs Vital signs: Vital Signs Temperature 37.2 C 05/04/23 12:52 Pulse 70 05/04/23 12:52 Respiratory Rate 20 05/04/23 12:52 Blood Pressure 144/52 H 05/04/23 12:52 Pulse Oximetry 99 05/04/23 12:52 Temperature 37.2 C 05/04/23 12:56 Temperature Source Tympanic 05/04/23 12:56 Pulse 70 05/04/23 12:56 Respiratory Rate 20 05/04/23 12:56 Respiratory Effort Short of Breath 05/04/23 12:57 Blood Pressure 144/52 H 05/04/23 12:56 Blood Pressure Position Sitting 05/04/23 12:56 Pulse Oximetry 99 05/04/23 12:56 Oxygen Delivery Method Room Air 05/04/23 12:56 Oxygen Flow Rate 0 05/04/23 12:56 Lab/Test Results Lab/Test Results: 05/04/23 13:05 Blood Blood Culture - Pending 05/04/23 13:05 Blood Blood Culture - Pending Laboratory Tests Range/Units 05/04/23 05/04/23 05/04/23 13:05 13:05 13:05 WBC (4.4-10.8) 10^3/uL 13.76 H RBC (4.36-5.78) 10^6/uL 4.84 Hgb (13.5-17.5) g/dL 15.0 Hct (40.0-50.0) % 44.3 MCV (80-95) fL 92 MCH (27.0-33.0) pg 31.0 MCHC (32.0-36.0) % 33.9 RDW (11.8-14.1) % 13.4 Plt Count (130-400) 10^3/uL 465 H MPV (8.0-11.0) fL 9.9 Immature Gran % 0.2 Neutrophils % 53.4 Lymphocytes % 36.3 Monocytes % 7.8 Eosinophils % 2.0 Basophils % 0.3 Nucleated RBC % (0.0-0.3) % 0.0 Absolute Neutrophils (1.2-6.7) 10^3/uL 7.35 H Absolute Lymphocytes (1.2-3.4) 10^3/uL 4.99 H Absolute Monocytes (0.1-0.8) 10^3/uL 1.07 H Absolute Eosinophils (0.0-0.7) 10^3/uL 0.28 Absolute Basophils (0.0-0.2) 10^3/uL 0.04 VBG Lactate (0.6-1.4) mmol/L 0.9 Sodium Cancelled 137 Potassium Cancelled 3.4 L Chloride Cancelled Carbon Dioxide Anion Gap BUN Creatinine Est GFR (CKD-EPI 2020) Glucose Calcium Total Bilirubin AST ALT Alkaline Phosphatase Troponin I (<or=60) ng/L NT-Pro-B Natriuret Pep (<300) pg/mL Total Protein Albumin Lipase Procalcitonin ng/mL Range/Units 05/04/23 05/04/23 05/04/23 13:05 13:05 13:05 WBC (4.4-10.8) 10^3/uL RBC (4.36-5.78) 10^6/uL Hgb (13.5-17.5) g/dL Hct (40.0-50.0) % MCV (80-95) fL MCH (27.0-33.0) pg MCHC (32.0-36.0) % RDW (11.8-14.1) % Plt Count (130-400) 10^3/uL MPV (8.0-11.0) fL Immature Gran % Neutrophils % Lymphocytes % Monocytes % Eosinophils % Basophils % Nucleated RBC % (0.0-0.3) % Absolute Neutrophils (1.2-6.7) 10^3/uL Absolute Lymphocytes (1.2-3.4) 10^3/uL Absolute Monocytes (0.1-0.8) 10^3/uL Absolute Eosinophils (0.0-0.7) 10^3/uL Absolute Basophils (0.0-0.2) 10^3/uL VBG Lactate (0.6-1.4) mmol/L Sodium Potassium Chloride 99 Carbon Dioxide Cancelled 27.3 Anion Gap Cancelled 10.7 BUN Cancelled Creatinine Est GFR (CKD-EPI 2020) Glucose Calcium Total Bilirubin AST ALT Alkaline Phosphatase Troponin I (<or=60) ng/L NT-Pro-B Natriuret Pep (<300) pg/mL Total Protein Albumin Lipase Procalcitonin ng/mL Range/Units 05/04/23 05/04/23 05/04/23 13:05 13:05 13:05 WBC (4.4-10.8) 10^3/uL RBC (4.36-5.78) 10^6/uL Hgb (13.5-17.5) g/dL Hct (40.0-50.0) % MCV (80-95) fL MCH (27.0-33.0) pg MCHC (32.0-36.0) % RDW (11.8-14.1) % Plt Count (130-400) 10^3/uL MPV (8.0-11.0) fL Immature Gran % Neutrophils % Lymphocytes % Monocytes % Eosinophils % Basophils % Nucleated RBC % (0.0-0.3) % Absolute Neutrophils (1.2-6.7) 10^3/uL Absolute Lymphocytes (1.2-3.4) 10^3/uL Absolute Monocytes (0.1-0.8) 10^3/uL Absolute Eosinophils (0.0-0.7) 10^3/uL Absolute Basophils (0.0-0.2) 10^3/uL VBG Lactate (0.6-1.4) mmol/L Sodium Potassium Chloride Carbon Dioxide Anion Gap BUN 29 H Creatinine Cancelled 1.0 Est GFR (CKD-EPI 2020) Cancelled 98.80 Glucose Cancelled Calcium Total Bilirubin AST ALT Alkaline Phosphatase Troponin I (<or=60) ng/L NT-Pro-B Natriuret Pep (<300) pg/mL Total Protein Albumin Lipase Procalcitonin ng/mL Range/Units 05/04/23 05/04/23 05/04/23 13:05 13:05 13:05 WBC (4.4-10.8) 10^3/uL RBC (4.36-5.78) 10^6/uL Hgb (13.5-17.5) g/dL Hct (40.0-50.0) % MCV (80-95) fL MCH (27.0-33.0) pg MCHC (32.0-36.0) % RDW (11.8-14.1) % Plt Count (130-400) 10^3/uL MPV (8.0-11.0) fL Immature Gran % Neutrophils % Lymphocytes % Monocytes % Eosinophils % Basophils % Nucleated RBC % (0.0-0.3) % Absolute Neutrophils (1.2-6.7) 10^3/uL Absolute Lymphocytes (1.2-3.4) 10^3/uL Absolute Monocytes (0.1-0.8) 10^3/uL Absolute Eosinophils (0.0-0.7) 10^3/uL Absolute Basophils (0.0-0.2) 10^3/uL VBG Lactate (0.6-1.4) mmol/L Sodium Potassium Chloride Carbon Dioxide Anion Gap BUN Creatinine Est GFR (CKD-EPI 2020) Glucose 104 Calcium Cancelled 9.3 Total Bilirubin Cancelled 1.0 AST Cancelled ALT Alkaline Phosphatase Troponin I (<or=60) ng/L NT-Pro-B Natriuret Pep (<300) pg/mL Total Protein Albumin Lipase Procalcitonin ng/mL Range/Units 05/04/23 05/04/23 05/04/23 13:05 13:05 13:05 WBC (4.4-10.8) 10^3/uL RBC (4.36-5.78) 10^6/uL Hgb (13.5-17.5) g/dL Hct (40.0-50.0) % MCV (80-95) fL MCH (27.0-33.0) pg MCHC (32.0-36.0) % RDW (11.8-14.1) % Plt Count (130-400) 10^3/uL MPV (8.0-11.0) fL Immature Gran % Neutrophils % Lymphocytes % Monocytes % Eosinophils % Basophils % Nucleated RBC % (0.0-0.3) % Absolute Neutrophils (1.2-6.7) 10^3/uL Absolute Lymphocytes (1.2-3.4) 10^3/uL Absolute Monocytes (0.1-0.8) 10^3/uL Absolute Eosinophils (0.0-0.7) 10^3/uL Absolute Basophils (0.0-0.2) 10^3/uL VBG Lactate (0.6-1.4) mmol/L Sodium Potassium Chloride Carbon Dioxide Anion Gap BUN Creatinine Est GFR (CKD-EPI 2020) Glucose Calcium Total Bilirubin AST 26 ALT Cancelled 34 Alkaline Phosphatase Cancelled 62 Troponin I (<or=60) ng/L < 50 NT-Pro-B Natriuret Pep (<300) pg/mL 62 Total Protein Cancelled Albumin Lipase Procalcitonin ng/mL Range/Units 05/04/23 05/04/23 05/04/23 13:05 13:05 13:05 WBC (4.4-10.8) 10^3/uL RBC (4.36-5.78) 10^6/uL Hgb (13.5-17.5) g/dL Hct (40.0-50.0) % MCV (80-95) fL MCH (27.0-33.0) pg MCHC (32.0-36.0) % RDW (11.8-14.1) % Plt Count (130-400) 10^3/uL MPV (8.0-11.0) fL Immature Gran % Neutrophils % Lymphocytes % Monocytes % Eosinophils % Basophils % Nucleated RBC % (0.0-0.3) % Absolute Neutrophils (1.2-6.7) 10^3/uL Absolute Lymphocytes (1.2-3.4) 10^3/uL Absolute Monocytes (0.1-0.8) 10^3/uL Absolute Eosinophils (0.0-0.7) 10^3/uL Absolute Basophils (0.0-0.2) 10^3/uL VBG Lactate (0.6-1.4) mmol/L Sodium Potassium Chloride Carbon Dioxide Anion Gap BUN Creatinine Est GFR (CKD-EPI 2020) Glucose Calcium Total Bilirubin AST ALT Alkaline Phosphatase Troponin I (<or=60) ng/L NT-Pro-B Natriuret Pep (<300) pg/mL Total Protein 7.7 Albumin Cancelled 3.8 Lipase Cancelled 62 Procalcitonin ng/mL < 0.1 Sign Out <JORGE Saavedra - Last Filed: 05/06/23 17:22> Sign Out Data: Sign Out Comment: pending hospitalist consultation and likely surgical consultation from [facility] [place] Last updated by Angie Finley PA at 05/04/23 16:00
[2023-05-04] MEDS: Albuterol/Ipratropium 3 ML UPD VIAL (14:30)
[2023-05-04 14:33] LABS: COVID-19 PCR Negative (Negative); Influenza A PCR Negative (Negative); Influenza B PCR Negative (Negative); RSV PCR Negative (Negative)
[2023-05-04 14:34] LABS: Source Nasopharynx
[2023-05-04] MEDS: Normal Saline - Diluent 50 ML VIAL IJ (14:41)
[2023-05-04] MEDS: Omnipaque 350 MG/ML 100 ML BTL IJ (14:42)
--- NOTE | 2023-05-04 14:49 | DI.CT_ITS ---
Exam(s) CT CHEST PE ABD PELVIS W EXAM: CT CHEST PE ABD PELVIS W CLINICAL HISTORY: recent surgery, hypoxia, dyspnea, hx PE. TECHNIQUE: Imaging Protocol: Axial CT angiography was performed with multi-slice acquisition and m ulti-planar and/or 3D reconstructions. CONTRAST MATERIAL: Intravenous: Omnipaque 350 Contrast volume:100 ml Oral: None COMPARISON: CT CT ABDOMEN PELVIS W from 08/28/2022 FINDINGS: CHEST: PULMONARY ARTERIES: There are subtle filling defects evident in the right upper lobe pulmonary arteri es consistent with pulmonary emboli. Also in the right lower lobe. No other intraluminal filling de fects evident in the opacified pulmonary arterial tree. LUNGS: There is no evidence of pulmonary infarction.No confluent infiltrates nor pleural effusions. No ominous pulmonary nodules. No bronchiectasis. MEDIASTINUM: There is no hilar nor mediastinal adenopathy. Visualized thyroid unremarkable. CARDIAC: Heart size is normal. There is no pericardial effusion. There is no significant shift of t he interventricular septum. Ventricular ratio 1/1: Caliber of the thoracic aorta is within normal li mits. No evidence of aortic dissection. OSSEOUS: No significant osseous lesions.No fractures.. ABDOMEN: There is no ascites. LIVER: There are no focal hepatic lesions nor dilatation of intrahepatic ducts. GALLBLADDER/BILIARY: Small amount of fluid in the gallbladder fossa. CBD is not dilated. PANCREAS: Pancreatic tail is again not visualized and probably on developmental basis. There are no surgical clips in this region. There is a paucity of retroperitoneal fat but no evidence of obvious other pancreatic findings. The pancreatic duct is not dilated. SPLEEN: Absent. Small splenule again noted. This small splenule drains into the small splenic vein. Portal vein confluence and main portal vein are patent. ADRENALS: There are no significant adrenal masses. KIDNEYS:No cysts evident. No calculi nor hydronephrosis. No solid renal masses. ABDOMINAL AORTA: Abdominal aorta is not enlarged. IVC: IVC filter again noted. LYMPH NODES: There is no retroperitoneal or para-aortic adenopathy. ABDOMINAL WALL/GI: No evidence of significant anterior abdominal wall hernia. Mild generalized and r elatively symmetrical subcutaneous anasarca is noted. PELVIS: LYMPH NODES: There is no intrapelvic nor inguinal adenopathy. GI: No evidence of appendicitis.No evidence of sigmoid diverticulitis. URINARY BLADDER: Mild uniform thickening of the urinary bladder wall noted. Probably related to [place] ent of cystitis, as previously evident. REPRODUCTIVE: Prostate size normal but there is some adjacent free fluid evident. OSSEOUS: No significant osseous lesions. No fractures IMPRESSION: 1. Subtle evidence of intraluminal filling defects in right upper and right lower lobe pulmonary niurka andres consistent with acute pulmonary emboli. There is no evidence of pulmonary infarction, confluent infiltrates, nor pleural effusions 2. 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 No surgical clips in this area. Small sple nule noted. These left upper quadrant findings are either related to prior surgery or developmental. Apparently patient has history of spherocytosis and therefore most probably has had prior splenectomy . 3. IVC filter again noted. 4. Urinary bladder wall thickening. 5. Other findings as above. Discussed with ER provider. RADIATION DOSE DELIVERED: Total DLP DATA REPOSITORY: All CT scans at this facility are submitted to the National Radiology Data Registry (NRDR) Dose Index Registry (DIR) with the [employer] ([employer]). RADIATION OPTIMIZATION: All CT scans at this facility use at least one of these dose optimization te chniques: automated exposure control; mA and/or kV adjustment per patient size (includes targeted exa ms where dose is matched to clinical indication); or iterative reconstruction.
[2023-05-04 16:34] LABS: Troponin I < 50 ng/L (<or=60)
[2023-05-04 16:45] LABS: Bilirubin Negative (Negative); Blood Negative (Negative); Clarity Clear (Clear); Glucose Negative (Negative); Ketones Negative (Negative); Leukocyte Esterase Negative (Negative); Nitrite Negative (Negative); Urobilinogen 0.2 mg/dL (Up to 0.2)
[2023-05-04] MEDS: Acetaminophen 325 MG TAB 650 MG PO (16:52)
[2023-05-04] MEDS: Apixaban 5 MG TAB 10 MG PO (16:53)
== END 2023-05-04 17:03 | disposition home or self-care (01) ==
PROVIDERS: Physician Assistant; Emergency Provider Registered Nurse Emergency; PCP Family Medicine
DX: I26.99 Other pulmonary embolism without acute cor pulmonale (principal); J20.9 Acute bronchitis, unspecified; I10 Essential (primary) hypertension; E89.0 Postprocedural hypothyroidism; Z86.718 Personal history of other venous thrombosis and embolism; Z90.49 Acquired absence of other specified parts of digestive tract; Z79.01 Long term (current) use of anticoagulants; Z20.822 Contact with and (suspected) exposure to COVID-19
CPT/HCPCS: 36415; 71275; 74177; 80053; 83690; 84145; 87040; 87637; 93005; 94640; 99285; 81003; 83605; 83880; 84484; 85025; 93010; 99284; J3490; J7620

== ENCOUNTER → 2023-06-04 00:55 | Outpatient (CLI) | payer OTHER, MEDICAID, SELFPAY ==
--- NOTE | 2023-06-04 06:45 | DI.US_ITS ---
Exam(s) US HERNIA EXAM: US HERNIA CLINICAL HISTORY: rt inguinal/lower abd pain for one week,r10.31. TECHNIQUE: Dedicated ultrasound examination of the right groin and right lower quadrant abdominal wa ll was performed. COMPARISON: US US ABDOMEN LIMITED from 02/09/[address] CHEST PE ABD PELVIS W from 05/04/2023 FINDINGS: There is no evidence of entire abdominal wall nor inguinal hernia evident in the area scanned. Also no evidence of right groin adenopathy. IMPRESSION: Negative study with no evidence of anterior abdominal wall hernia. DATA REPOSITORY:
== END ==
PROVIDERS: PCP Family Medicine; Visit Provider Family Medicine
DX: R10.31 Right lower quadrant pain (principal)
CPT/HCPCS: 76857

== ENCOUNTER 2023-07-09 12:40 | Emergency (ER) | payer OTHER, MEDICAID, SELFPAY ==
[2023-07-09] VITALS (34 sets, daily range): BP systolic 114–173; BP diastolic 59–89; PULSE 69–98; RESP 0–30; TEMP 37.1; O2SAT 92–98
--- NOTE | 2023-07-09 12:30 | RT.EKG_ITS ---
APPROVED REPORT Exam: Resting ECG Reason for Exam: chest pain Patient Location: E HR:74 bpm ECG Measurements Heart Rate 74 AXIS DE 183 P 56 QRSd 109 QRS 56 QT 389 T 50 QTc 432 Conclusion Sinus rhythm...normal P axis, V-rate 60- 99 Probable left ventricular hypertrophy...multiple LVH criteria Sinus rhythm. No shgnificant change from prior 05/04/23. WD
--- NOTE | 2023-07-09 12:45 | DI.RAD_ITS ---
Exam(s) XR PORTABLE CHEST AP EXAM: XR PORTABLE CHEST AP CLINICAL HISTORY: chest pain TECHNIQUE: 2D digital imaging was performed of the chest. One image was obtained. An AP view was ob tained. COMPARISON: CR XR PORTABLE CHEST AP from 07/17/2021 CR,XR XR CHEST 2V PA LATERAL from 08/25/2022 FINDINGS: MEDIASTINUM: Normal. HEART: Normal. PULMONARY VASCULATURE: Normal. LUNGS: Clear. PLEURAL SPACE: No pleural effusion or pneumothorax. BONE:Within normal limits for the patient's age. OTHER FINDINGS:Normal. IMPRESSION: No acute pulmonary findings. DATA REPOSITORY: RADIATION DOSE DELIVERED:
--- OUTSIDE RECORDS SUMMARY | 2023-07-09 12:49 | XMS_ITS | Continuity of Care Document ---
Author Name Unknown Organization [facility] Address [address] [place] [address] Care Team Providers Care Heading Repairer Name Role Phone QUIANA FLORES MD Primary Care Physician [phone] Encounter [facility] NBR [id number] Date(s): 04/12/23 - 04/12/23 [facility] [address], [place] [address] Encounter Diagnosis Diarrhea(Discharge Diagnosis) - 04/12/23 Pyrosis(Discharge Diagnosis) - 04/12/23 Bloating(Discharge Diagnosis) - 04/12/23 Abdominal pain(Discharge Diagnosis) - 04/12/23 Barretts esophagus(Discharge Diagnosis) - 04/12/23 Biliary colic(Discharge Diagnosis) - 04/12/23 GERD - Gastro-esophageal reflux disease(Discharge Diagnosis) - 04/12/23 Cholelithiasis(Discharge Diagnosis) - 04/12/23 Common bile duct dilation(Discharge Diagnosis) - 04/12/23 Steatosis of liver(Discharge Diagnosis) - 04/12/23 Elevated liver function tests(Discharge Diagnosis) - 04/12/23 Discharge Disposition: Home or Self Care Attending Physician: Stella Lomas APRN Referring Physician: QUIANA FLORES MD Allergies, Adverse Reactions, Alerts Substance Reaction Severity Status neomycin Unknown Active bacitracin Unknown Active Neosporin Unknown Active Beer Anaphylactic reaction Severe Active Dog dander Severe Active Assessment and Plan Future Appointments Future Scheduled Tests Laboratory* Hepatitis B Surface Antigen 04/12/23 * Pancreatic Elastase, Fecal LC 04/12/23 * Calprotectin, Fecal LC 04/12/23 * Fecal Fat, Qualitative LC 04/12/23 * H. pylori, IgM, IgG, IgA Ab LC 04/12/23 * Hepatitis B Surface Antibody 04/12/23 * Hepatitis C Antibody 04/12/23 Functional Status 04/12/23 Other exposure to Infectious Disease Non e Medications !-EpiPen Auto-Injector 0 Refill(s) Start Date: 08/27/22 Status: Ordered acetaminophen 325 mg oral tablet 650 mg = 2 tab, Oral, every 4 hr, PRN as needed for fever, # 50 tab, 0 Refill(s) Start Date: 08/27/22 Status: Ordered apixaban 5 mg oral tablet 5 mg = 1 tab, Oral, BID, # 60 tab, 0 Refill(s) Start Date: 08/27/22 Status: Ordered betamethasone dipropionate 0.05% topical cream 1 osman, Topical, BID, # 15 g, 0 Refill(s) Start Date: 08/27/22 Status: Ordered clonazePAM 1 mg oral tablet 0 Refill(s) Start Date: 08/27/22 Status: Ordered diclofenac 1% topical gel 1 osman, Topical, QID, # 100 g, 0 Refill(s) Start Date: 08/27/22 Status: Ordered famotidine 20 mg oral tablet 0 Refill(s) Start Date: 08/27/22 Status: Ordered fluticasone propionate 0 Refill(s) Start Date: 08/27/22 Status: Ordered hydrocortisone 2.5% topical cream 0 Refill(s) Start Date: 08/27/22 Status: Ordered hydrocortisone 2.5% topical cream 0 Refill(s) Start Date: 08/27/22 Status: Ordered pantoprazole 40 mg oral delayed release tablet 0 Refill(s) Start Date: 08/27/22 Status: Ordered risperiDONE 0.5 mg oral tablet 0 Refill(s) Start Date: 08/27/22 Status: Ordered sertraline 100 mg oral tablet 0 Refill(s) Start Date: 08/27/22 Status: Ordered Problem List Condition Confirmation Course Effective Dates Status H ealth Status Informant Bloating Confirmed Active Abdominal pain Confirmed Active Acid reflux Confirmed Active Common bile duct dilation Confirmed Active Anxiety Confirmed Active Asplenia Confirmed Active Barretts esophagus Confirmed Active Biliary colic Confirmed Active Bilirubin level elevated Confirmed Active Bipolar Confirmed Active Blepharospasm Confirmed Active Cellulitis Confirmed Active Cholelithiasis Confirmed Active Depression Confirmed Active Diarrhea Confirmed Active Dry heaves Confirmed Active DVT - Deep vein thrombosis Confirmed Active Epigastric pain Confirmed Active Pyrosis Confirmed Active Hereditary spherocytosis Confirmed Active Hernia Confirmed Active History of COVID-19 Confirmed Active Hypokalemia Confirmed Active Inguinal hernia Confirmed Active Inguinal pain Confirmed Active Elevated liver function tests Confirmed Active Morbid obesity Confirmed Active Nausea Confirmed Active Nausea and vomiting Confirmed Active Paranoia Confirmed Active Priapism Confirmed Active Pulmonary embolism Confirmed Active Rash Confirmed Active Rectal pain Confirmed Active Penile shunt Confirmed Active Spherocytosis Confirmed Active Splenectomy Confirmed Active Steatosis of liver Confirmed Active Superior vena cava Confirmed Active Thoracic back pain Confirmed Active Thyroid disease Confirmed Active Thyroid follicular adenoma Confirmed Active Tricuspid regurgitation Confirmed Active Procedures Procedure Date Related Diagnosis Body Site Status Upper GI (gastrointestinal) endoscopy 09/03/22 Completed Thyroid lobectomy 1 09/04/19 Compl eted Esophagogastroduodenoscopy 07/26/19 Completed Esophagogastroduodenoscopy 05/27/18 Completed Partial substernal thyroidectomy Completed Surgery 2 Completed 1left 2penile shunt Vital Signs Most recent to oldest [Reference Range]: 1 Temperature Temporal Artery [36-38 Deg C ] 36.7 Deg C (04/12/23 9:15 AM) Apical Heart Rate [60-100 bpm] 64 bpm (04/12/23 9:15 AM) Blood Pressure [90-140/60-90 mmHg] 124/7 0mmHg (04/12/23 9:15 AM) Weight 88.45 kg (04/12/23 9:15 AM) Weight Measured (lbs) 194.999 lb (04/12/23 9:15 AM) [place] Body Weight Calculated 70.7 kg (04/12/23 9:15 AM) Height 175.26 cm (04/12/23 9:15 AM) Height/Length Measured (inches) 69 inch (04/12/23 9:15 AM) BSA Measured 2.08 m2 (04/12/23 9:15 AM) Body Mass Index 28.8 kg/m2 (04/12/23 9:15 AM) Social History Social History Type Response Tobacco Never tobacco user T obacco Use:. Sex Physician Outpatient Note * Stella Lomas APRN: PERFORM Event Display: Office Clinic Note Physician Authored Date: [id number] GUILHERME ANGULO :1985 Age:37 years Sex:Male Visit Date:04/12/2023 Primary Care Physician: QUIANA FLORES MD Chief Complaint Abdominal pain, gas and bloating History of Present Illness Patient is a 37-year-old male here today at the request of Dr. Flores for abdominal pain, gas andbloating.?? This is an initial consult.?? Patient reports having??abdominal pain??and points to left upper quadrant for some time. ??Complains of gas and bloating.?? He cannot specify??how long this has been. ??He states that??acting any worse.?? He has a??long history of elevated??total bilirubin.??Most currently 4.13.?? He has been unconjugated since 2008.?? AST elevated at 62, ALT and a??alkaline phosphatase normal. ??Lipase has been normal.?? Patient reports a few months ago he had vomiting.?? He reports having diarrhea several times in the morning and sometimes with incontinence.?? Unclear whether he has pyrosis or dyspepsia. ??Denies nausea,??melena or hematochezia. ??Does state he has light stools.?? Unsure if he has lost weight. ??His appetite??is normal. ??Denies any??dysphagia or globus sensation. ?? Patient is a poor historian. ??He speaks in a muffled voice.?He wears a hoodie and a surgical mask only his eyes are??showing.?He avoids eye contact.?? 85 pages of primary care notes??were reviewed that was sent??with the referral. ?? Patient has seen surgeons??for??cholelithiasis that been seen on CT and abdominal ultrasound.?? There was discussion of an MRCP. ??Unclear if this has been done. ?? 09/04/2022 patient had an upper GI??series showing mild GERD. ?? 07/27/2019 patient had a EGD showing a large hiatal hernia??and esophagitis. ??No biopsies were taken. ??Stomach and duodenum were unremarkable. ?? 05/28/2018 patient had a EGD??showing??no evidence of impacted esophageal foreign body??there was a food bolus found in the fundus of the stomach and duodenum.?? The fundal food bolus may have recently passed quickly after induction of anesthesia??that that was only speculative.?? Significant esophagitis at the GE junction was seen??with friability. ?? Ultrasound on 02/09/2023 showed cholelithiasis??otherwise unremarkable. ?? Ultrasound on 09/01/2022 showed cholelithiasis??and sludge in the gallbladder lumen.?? Gallbladder was mildly distended.?? Gallbladder wall thickness was in the upper limits??of normal.?? Otherwise unremarkable. ?? 08/29/2019 CT scan of the abdomen and pelvis with contrast??done for epigastric and left upper quadrant pain??showed multiple gallstones in the gallbladder lumen??without gallbladder distention. ??There is no stones in the common bile duct and the common bile duct was not dilated.?? No evidence of pancreatic mass??or abnormalities.?? IVC filter??remains??in status or to reposition. ?? CT scan of the abdomen and pelvis with contrast??done??02/15/2022??was unremarkable. ?? Labs on 09/10/2022 showed a white count of??13.11??otherwise unremarkable,??INR 1.1, lactate 0.8, TSH??2.99, complete metabolic panel??unremarkable, C. difficile negative,??Salmonella, Shigella, Campylobacter and Shiga toxin all negative, blood cultures??are negative. ? Patient denies ever having a colonoscopy. ?? Clear of any family history??of gastrointestinal cancers, celiac disease or inflammatory bowel disease. Review of Systems Pertinent positives and negatives are discussed in HPI. Physical Exam Vitals & Measurements T:??36.7?C ??(Temporal Artery)?? HR:??64??(Apical)?? BP:??124/70?? SpO2:??97%?? HT:??175.26??cm?? WT:??88.45??kg?? BMI:??28.8?? BSA:??2.08?? General: Well-nourished well-developed??male??in no acute distress. HEENT: Head is normocephalic, trachea midline, and no cervical lymphadenopathy. Respiratory: Respirations are even and unlabored. ??Lungs are clear to auscultation. Cardiovascular: Regular rate and rhythm with S1 and S2. Abdomen: Positive bowel sounds x4 quadrants, no masses, no guarding, no tenderness. ??No hepatosplenomegaly. ??Abdomen is soft. Skin: Warm, dry, and pink. Neurological: Alert, able to answer simple questions, speech muffled,??gait is steady. Psychological: Pleasant, cooperative, flat affect. Tapping feet and shakey hands. Assessment/Plan 1.??Diarrhea??R19.7 Will attempt stool test??to rule out??inflammation.?? Also assess for fecal fat??and??pancreatic elastase.?? Patient tells me he??is able to collect the stool samples and bring them here.?? See patient 2 weeks to discuss findings and make further recommendations. Ordered: Actin (Smooth Muscle) Antibody LC, Blood, Routine, 04/12/23 9:57:00 EDT, by Bill KRAUS, Lab Collect, Diarrhea Pyrosis Bloating [id number], Serum LC, Blood, Routine, 04/12/23 9:57:00 EDT, by Bill KRAUS, Lab Collect, Diarrhea Pyrosis Bloating VALENTINA w/Reflex LC, Blood, Routine, 04/12/23 9:57:00 EDT, by Bill KRAUS, Lab Collect, Diarrhea Pyrosis Bloating Calprotectin, Fecal LC, Stool, Routine Collect, 04/12/23, Once, Nurse collect, Print Label, Diarrhea Pyrosis Bloating, Order for future visit Celiac Disease Comprehensive LC, Blood, Routine, 04/12/23 9:57:00 EDT, by Bill KRAUS, Lab Collect, Diarrhea Pyrosis Bloating Ceruloplasmin LC, Blood, Routine, 04/12/23 9:57:00 EDT, by Bill KRAUS, Lab Collect, Diarrhea Pyrosis Bloating Fecal Fat, Qualitative LC, Stool, Routine Collect, 04/12/23, Once, Nurse collect, Print Label, Diarrhea Pyrosis Bloating, Order for future visit H. pylori, IgM, IgG, IgA Ab LC, Blood, Routine, 04/12/23, Once, Lab Collect, Diarrhea Pyrosis Bloating, Order for future visit HBsAg Screen LC, Blood, RT, Collected, 04/12/23 9:58:00 EDT, by EFRA Lab Collect, Diarrhea, unspecified Heartburn Abdominal distension (gaseous) HCV Antibody Hornitos to Quant PCR and Genotyping [id number] LC, Blood, RT, Collected, 04/12/23 9:58:00 EDT, by EFRA Lab Collect, Diarrhea, unspecified Heartburn Abdominal distension (gaseous) Hep A Ab, Total LC, Blood, Routine, 04/12/23 9:57:00 EDT, by EFRA, Bill, Lab Collect, Diarrhea Pyrosis Bloating Hep B Core Ab, Tot LC, Blood, Routine, 04/12/23 9:57:00 EDT, by EFRA, Once, Lab Collect, Diarrhea Pyrosis Bloating Hepatitis B Surf Ab Quant LC, Blood, RT, Collected, 04/12/23 9:58:00 EDT, by Jay KRAUS Collect,Diarrhea, unspecified Heartburn Abdominal distension (gaseous) Hepatitis B Surface Antibody, Blood, Routine, 04/12/23, Once, Lab Collect, Diarrhea Pyrosis Bloating, Order for future visit Hepatitis B Surface Antigen, Blood, Routine, 04/12/23, Once, Lab Collect, Diarrhea Pyrosis Bloating, Order for future visit Hepatitis C Antibody, Blood, Routine, 04/12/23, Once, Lab Collect, Diarrhea Pyrosis Bloating, Order for future visit Liver-Kidney Microsomal Ab LC, Blood, Routine, 04/12/23 9:57:00 EDT, by Bill KRAUS, Lab Collect, Diarrhea Pyrosis Bloating Pancreatic Elastase, Fecal LC, Stool, Routine Collect, 04/12/23, Once, Nurse collect, Print Label, Diarrhea Pyrosis Bloating, Order for future visit ?? 2.??Pyrosis??R12 He takes Pepcid 20 mg daily and Protonix 40 mg twice daily.?? Consider EGD at??next??appointment hattie does complain of pyrosis.?Advised to take??30 minutes before breakfast and evening meal.?? Wediscussed reflux triggering foods and beverages to avoid, to avoid eating 3 hours before bedtime and eat small frequent meals. Consider EGD at follow up. Ordered: Actin (Smooth Muscle) Antibody LC, Blood, Routine, 04/12/23 9:57:00 EDT, by EFRA, Once, Lab Collect, Diarrhea Pyrosis Bloating [id number], Serum LC, Blood, Routine, 04/12/23 9:57:00 EDT, by Bill KRAUS, Lab Collect, Diarrhea Pyrosis Bloating VALENTINA w/Reflex LC, Blood, Routine, 04/12/23 9:57:00 EDT, by Bill KRAUS, Lab Collect, Diarrhea Pyrosis Bloating Calprotectin, Fecal LC, Stool, Routine Collect, 04/12/23, Once, Nurse collect, Print Label, Diarrhea Pyrosis Bloating, Order for future visit Celiac Disease Comprehensive LC, Blood, Routine, 04/12/23 9:57:00 EDT, by Bill KRAUS, Lab Collect, Diarrhea Pyrosis Bloating Ceruloplasmin LC, Blood, Routine, 04/12/23 9:57:00 EDT, by Bill KRAUS, Lab Collect, Diarrhea Pyrosis Bloating Fecal Fat, Qualitative LC, Stool, Routine Collect, 04/12/23, Once, Nurse collect, Print Label, Diarrhea Pyrosis Bloating, Order for future visit H. pylori, IgM, IgG, IgA Ab LC, Blood, Routine, 04/12/23, Bill, Lab Collect, Diarrhea Pyrosis Bloating, Order for future visit HBsAg Screen LC, Blood, RT, Collected, 04/12/23 9:58:00 EDT, by EFRA Lab Collect, Diarrhea, unspecified Heartburn Abdominal distension (gaseous) HCV Antibody Hornitos to Quant PCR and Genotyping [id number] LC, Blood, RT, Collected, 04/12/23 9:58:00 EDT, by EFRA Lab Collect, Diarrhea, unspecified Heartburn Abdominal distension (gaseous) Hep A Ab, Total LC, Blood, Routine, 04/12/23 9:57:00 EDT, by Bill KRAUS, Lab Collect, Diarrhea Pyrosis Bloating Hep B Core Ab, Tot LC, Blood, Routine, 04/12/23 9:57:00 EDT, by Bill KRAUS, Lab Collect, Diarrhea Pyrosis Bloating Hepatitis B Surf Ab Quant LC, Blood, RT, Collected, 04/12/23 9:58:00 EDT, by EFRA Lab Collect,Diarrhea, unspecified Heartburn Abdominal distension (gaseous) Hepatitis B Surface Antibody, Blood, Routine, 04/12/23, Once, Lab Collect, Diarrhea Pyrosis Bloating, Order for future visit Hepatitis B Surface Antigen, Blood, Routine, 04/12/23, Once, Lab Collect, Diarrhea Pyrosis Bloating, Order for future visit Hepatitis C Antibody, Blood, Routine, 04/12/23, Once, Lab Collect, Diarrhea Pyrosis Bloating, Order for future visit Liver-Kidney Microsomal Ab LC, Blood, Routine, 04/12/23 9:57:00 EDT, by EFRA, Bill, Lab Collect, Diarrhea Pyrosis Bloating Pancreatic Elastase, Fecal LC, Stool, Routine Collect, 04/12/23, Once, Nurse collect, Print Label, Diarrhea Pyrosis Bloating, Order for future visit ?? 3.??Bloating??R14.0 As above. Ordered: Actin (Smooth Muscle) Antibody LC, Blood, Routine, 04/12/23 9:57:00 EDT, by EFRA, Bill, Lab Collect, Diarrhea Pyrosis Bloating [id number], Serum LC, Blood, Routine, 04/12/23 9:57:00 EDT, by Bill KRAUS, Lab Collect, Diarrhea Pyrosis Bloating VALENTINA w/Reflex LC, Blood, Routine, 04/12/23 9:57:00 EDT, by EFRA, Bill, Lab Collect, Diarrhea Pyrosis Bloating Calprotectin, Fecal LC, Stool, Routine Collect, 04/12/23, Once, Nurse collect, Print Label, Diarrhea Pyrosis Bloating, Order for future visit Celiac Disease Comprehensive LC, Blood, Routine, 04/12/23 9:57:00 EDT, by Bill KRAUS, Lab Collect, Diarrhea Pyrosis Bloating Ceruloplasmin LC, Blood, Routine, 04/12/23 9:57:00 EDT, by Bill KRAUS, Lab Collect, Diarrhea Pyrosis Bloating Fecal Fat, Qualitative LC, Stool, Routine Collect, 04/12/23, Once, Nurse collect, Print Label, Diarrhea Pyrosis Bloating, Order for future visit H. pylori, IgM, IgG, IgA Ab LC, Blood, Routine, 04/12/23, Once, Lab Collect, Diarrhea Pyrosis Bloating, Order for future visit HBsAg Screen LC, Blood, RT, Collected, 04/12/23 9:58:00 EDT, by EFRA Lab Collect, Diarrhea, unspecified Heartburn Abdominal distension (gaseous) HCV Antibody [place]itos to Quant PCR and Genotyping [id number] LC, Blood, RT, Collected, 04/12/23 9:58:00 EDT, by Jay KRAUS Collect, Diarrhea, unspecified Heartburn Abdominal distension (gaseous) Hep A Ab, Total LC, Blood, Routine, 04/12/23 9:57:00 EDT, by Bill KRAUS, Lab Collect, Diarrhea Pyrosis Bloating Hep B Core Ab, Tot LC, Blood, Routine, 04/12/23 9:57:00 EDT, by Bill KRAUS, Lab Collect, Diarrhea Pyrosis Bloating Hepatitis B Surf Ab Quant LC, Blood, RT, Collected, 04/12/23 9:58:00 EDT, by Jay KRAUS Collect,Diarrhea, unspecified Heartburn Abdominal distension (gaseous) Hepatitis B Surface Antibody, Blood, Routine, 04/12/23, Once, Lab Collect, Diarrhea Pyrosis Bloating, Order for future visit Hepatitis B Surface Antigen, Blood, Routine, 04/12/23, Once, Lab Collect, Diarrhea Pyrosis Bloating, Order for future visit Hepatitis C Antibody, Blood, Routine, 04/12/23, Once, Lab Collect, Diarrhea Pyrosis Bloating, Order for future visit Liver-Kidney Microsomal Ab LC, Blood, Routine, 04/12/23 9:57:00 EDT, by Bill KRAUS, Lab Collect, Diarrhea Pyrosis Bloating Pancreatic Elastase, Fecal LC, Stool, Routine Collect, 04/12/23, Once, Nurse collect, Print Label, Diarrhea Pyrosis Bloating, Order for future visit ?? 4.??Abdominal pain??R10.9 Left upper quadrant.?? Labs as above. ?? 5.??Barretts esophagus??K22.70 Pathology is not available however he has Jensen's esophagus and his problems.?? His last EGD was in 2020.?? He is due for EGD for surveillance??if this is the case. ??We will attempt a pathology.??Discussed at follow-up. ?? 6.??Biliary colic??K80.50 Gallstone seen on??abdominal ultrasound and CT.?? He is seeing surgery. ??At this time??he is on Uroxatral. ??Continue to follow with general surgery.?? Last CT did not show signs of, and??bile duct??dilation.?? There was a question of MRCP. ??We will follow-up with his primary care. ?? 7.??GERD - Gastro-esophageal reflux disease??K21.9 above. ?? 8.??Cholelithiasis??K80.20 As above. ?? 9.??Common bile duct dilation??K83.8 As above. ?? 10.??Steatosis of liver??K76.0 Labs ordered to rule out??hemochromatosis, viral and autoimmune hepatitis.?? Discuss further at follow-up. ?? 11.??Elevated liver function tests??R79.89 As above.?? Fib 4 score 0.78. ??Not indicative of??cirrhosis. ?? Voice recognition software utilized which may result in minor gravity prospecting operator error. Future Orders Calprotectin, Fecal LC, Stool, Routine Collect, 04/12/23, Once, Nurse collect, Print Label, Diarrhea Pyrosis Bloating, Order for future visit Fecal Fat, Qualitative LC, Stool, Routine Collect, 04/12/23, Once, Nurse collect, Print Label, Diarrhea Pyrosis Bloating, Order for future visit H. pylori, IgM, IgG, IgA Ab LC, Blood, Routine, 04/12/23, Once, Lab Collect, Diarrhea Pyrosis Bloating, Order for future visit Hepatitis B Surface Antibody, Blood, Routine, 04/12/23, Once, Lab Collect, Diarrhea Pyrosis Bloating, Order for future visit Hepatitis B Surface Antigen, Blood, Routine, 04/12/23, Once, Lab Collect, Diarrhea Pyrosis Bloating, Order for future visit Hepatitis C Antibody, Blood, Routine, 04/12/23, Once, Lab Collect, Diarrhea Pyrosis Bloating, Order for future visit Pancreatic Elastase, Fecal LC, Stool, Routine Collect, 04/12/23, Once, Nurse collect, Print Label, Diarrhea Pyrosis Bloating, Order for future visit Problem List/Past Medical History Ongoing Abdominal pain Acid reflux Anxiety Asplenia Barretts esophagus Biliary colic Bilirubin level elevated Bipolar Blepharospasm Bloating Cellulitis Cholelithiasis Common bile duct dilation Depression Diarrhea Dry heaves DVT - Deep vein thrombosis Elevated liver function tests Epigastric pain Hereditary spherocytosis Hernia History of COVID-19 Hypokalemia Inguinal hernia Inguinal pain Morbid obesity Nausea Nausea and vomiting Paranoia Penile shunt Priapism Pulmonary embolism Pyrosis Rash Rectal pain Spherocytosis Splenectomy Steatosis of liver Superior vena cava Thoracic back pain Thyroid disease Thyroid follicular adenoma Tricuspid regurgitation Historical GERD - Gastro-esophageal reflux disease Procedure/Surgical History ???Upper GI (gastrointestinal) endoscopy (09/04/2022)???Thyroid lobectomy (09/05/2019)???Esophagogastroduodenoscopy (07/27/2019)???Esophagogastroduodenoscopy (05/28/2018)???Partial substernal thyroidectomy???Surgery Medications !-EpiPen Auto-Injector acetaminophen 325 mg oral tablet, 650 mg= 2 tab, Oral, every 4 hr, PRN apixaban 5 mg oral tablet, 5 mg= 1 tab, Oral, BID betamethasone dipropionate 0.05% topical cream, 1 osman, Topical, BID clonazePAM 1 mg oral tablet diclofenac 1% topical gel, 1 osman, Topical, QID famotidine 20 mg oral tablet fluticasone propionate hydrocortisone 2.5% topical cream hydrocortisone 2.5% topical cream pantoprazole 40 mg oral delayed release tablet risperiDONE 0.5 mg oral tablet sertraline 100 mg oral tablet Allergies Beer??(Anaphylactic reaction) Dog dander Neosporin bacitracin neomycin Social History Alcohol Never Electronic Cigarette/Vaping Electronic Cigarette Use: Never. Substance Use Never Tobacco Never tobacco user Tobacco Use:. Family History Family history is negative Electronically Signed on 04/12/23 02:39 PM Stella Lomas APRN Patient Care team information Care Team Personnel Name: QUIANA FLORES MD Position: No Access Member Role: Primary Care Physician Address: Address: [address] [place] [id number] [facility] Care Team Related Persons Name: ALY ANGULO
--- OUTSIDE RECORDS SUMMARY | 2023-07-09 12:49 | XMS_ITS | Continuity of Care Document ---
Author Name Unknown Organization [facility] Address [address] [place] [address] Care Team Providers Care Director Learning And Development Name Role Phone QUIANA GARDNER MD Primary Care Physician Encounter [facility] NBR [id number] Date(s): 04/12/23 - 04/12/23 [facility] [address] [place], [place] [address] Discharge Disposition: Home or Self Care Attending Physician: Stella Lomas APRN Admitting Physician: Stella Lomas APRN Allergies, Adverse Reactions, Alerts Substance Reaction Severity Status neomycin Unknown Active bacitracin Unknown Active Neosporin Unknown Active Beer Anaphylactic reaction Severe Active Dog dander Severe Active Assessment and Plan Future Appointments Diagnostic Tests Pending * Celiac Disease Comprehensive LC 04/12/23 * Wypuc-3-[id number], Serum LC 04/12/23 * Actin (Smooth Muscle) Antibody LC 04/12/23 * Ceruloplasmin LC 04/12/23 * VALENTINA w/Reflex LC 04/12/23 * Liver-Kidney Microsomal Ab LC 04/12/23 * Hepatitis B Surf Ab Quant LC 04/12/23 * HBsAg Screen LC 04/12/23 * HCV Antibody [place] to Quant PCR and Genotyping [id number] LC 04/12/23 Future Scheduled Tests Laboratory* Hepatitis B Surface Antigen 04/12/23 * Pancreatic Elastase, Fecal LC 04/12/23 * Calprotectin, Fecal LC 04/12/23 * Fecal Fat, Qualitative LC 04/12/23 * H. pylori, IgM, IgG, IgA Ab LC 04/12/23 * Hepatitis B Surface Antibody 04/12/23 * Hepatitis C Antibody 04/12/23 Medications !-EpiPen Auto-Injector 0 Refill(s) Start Date: [...] Completed Surgery 2 Completed 1left 2penile shunt Results Laboratory List Name Date Bilirubin Direct 04/12/23 C-Reactive Protein 04/12/23 CBC w/ Diff 04/12/23 Comprehensive Metabolic Panel 04/12/23 Ferritin 04/12/23 Hep A Ab, Total LC 04/12/23 Hep B Core Ab, Tot LC 04/12/23 Iron Panel 04/12/23 Sedimentation Rate (ESR) 04/12/23 Automated Diff 04/12/23 Most recent to oldest [Reference Range]: 1 WBC [4.8-10.8 K/mcL] 11.4 K/mcL *HI* (04/12/23 9:58 AM) RBC [4.20-6.10 Million/mcL] 4.80 Million /mcL (04/12/23 9:58 AM) Neutro Auto [42.2-75.2 %] 47.9 % (04/12/23 9:58 AM) Lymph Auto [20.5-51.1 %] 42.2 % (04/12/23 9:58 AM) [place] Auto [1.7-9.3 %] 8.0 % (04/12/23 9:58 AM) Basophil Auto [0.0-0.8 %] 0.4 % (04/12/23 9:58 AM) BUN [8-26 mg/dL] 32 mg/dL *HI* (04/12/23 9:58 AM) Glucose Level [74-106 mg/dL] 96 mg/dL (04/12/23 9:58 AM) Potassium Level [3.5-5.1 mmol/L] 4.9 mmo l/L (04/12/23 9:58 AM) Baso Absolute [0.0-0.2 K/mcL] 0.0 K/mcL (04/12/23 9:58 AM) MCV [80.0-94.0 fL] 94.4 fL *HI* (04/12/23 9:58 AM) CRP [<=10.0 mg/L] <8.0 mg/L (04/12/23 9:58 AM) AST [15-41 IntlUnit/L] 39 IntlUnit/L (04/12/23 9:58 AM) ALT [17-63 IntlUnit/L] 31 IntlUnit/L (04/12/23 9:58 AM) MCHC [32.0-36.0 g/dL] 34.0 g/dL (04/12/23 9:58 AM) Osmolality [275-295 mOsm/kg] 281 mOsm/kg (04/12/23 9:58 AM) Sodium Level [134-143 mmol/L] 137 mmol/L (04/12/23 9:58 AM) Lymph Absolute [1.2-3.4 K/mcL] 4.8 K/mcL *HI* (04/12/23 9:58 AM) Hct [42.0-52.0 %] 45.3 % (04/12/23 9:58 AM) Calcium Level [8.9-10.3 mg/dL] 9.6 mg/dL (04/12/23 9:58 AM) [place] Absolute [0.1-0.6 K/mcL] 0.9 K/mcL *HI* (04/12/23 9:58 AM) Albumin Level [3.5-5.0 g/dL] 4.0 g/dL (04/12/23 9:58 AM) Protein Total [6.5-8.1 g/dL] 7.1 g/dL (04/12/23 9:58 AM) Iron Sat [20-55 %] 34 % (04/12/23 9:58 AM) MCH [27.0-31.0 pg] 32.1 pg *HI* (04/12/23 9:58 AM) Neutro Absolute [1.4-6.5 K/mcL] 5.5 K/mc L (04/12/23 9:58 AM) Bilirubin Total [0.2-1.2 mg/dL] 1.5 mg/d L *HI* (04/12/23 9:58 AM) Hgb [14.0-18.0 g/dL] 15.4 g/dL (04/12/23 9:58 AM) Transferrin [180-329 mg/dL] 248 mg/dL (04/12/23 9:58 AM) Alk Phos [38-130 IntlUnit/L] 62 IntlUnit /L (04/12/23 9:58 AM) MPV [7.4-10.4 fL] 10.9 fL *HI* (04/12/23 9:58 AM) Ferritin Level [24.0-336.0 ng/mL] 51.7 n g/mL (04/12/23 9:58 AM) Bilirubin Direct [0.0-0.5 mg/dL] 0.2 mg/ dL (04/12/23 9:58 AM) Platelets [130-400 K/mcL] 442 K/mcL *HI* (04/12/23 9:58 AM) CO2 [22-32 mmol/L] 29 mmol/L (04/12/23 9:58 AM) Eos Absolute [0.0-0.2 K/mcL] 0.2 K/mcL (04/12/23 9:58 AM) TIBC 347 *NA* (04/12/23:58 AM) Iron [45-182 mcg/dL] 118 mcg/dL (04/12/23 9:58 AM) Chloride Level [98-111 mmol/L] 102 mmol/ L (04/12/23 9:58 AM) RDW-CV [11.5-14.5 %] 14.1 % (04/12/23 9:58 AM) A/G Ratio [1.0-2.5 g/dL] 1.3 g/dL (04/12/23 9:58 AM) BUN/Creat Ratio [8.0-20.0] 35.2 *HI* (04/12/23 9:58 AM) Globulin [2.3-3.5 g/dL] 3.1 g/dL (04/12/23 9:58 AM) Imm Gran Absolute [0.00-0.02 K/mcL] 0.02 K/mcL (04/12/23 9:58 AM) Imm Gran Auto [0.0-0.5 %] 0.2 % (04/12/23 9:58 AM) NRBC Auto 0 *NA* (04/12/23 9:58 AM) NRBC Absolute 0 *NA* (04/12/23 9:58 AM) Hep A Ab, Ttl LC [Negative] Negative 1 *NA* (04/12/23 9:58 AM) Hep B Core Ab, Tot LC [Negative] Negativ e 2 *NA* (04/12/23 9:58 AM) Creatinine Level [0.61-1.24 mg/dL] 0.91 mg/dL (04/12/23 9:58 AM) Anion Gap [3.0-12.0] 6.0 (04/12/23 9:58 AM) Eos, Auto [0.00-3.00 %] 1.30 % (04/12/23 9:58 AM) eGFR CKD-EPI [>=60 mL/min/1.73 m2] 111 m L/min/1.73 m2 (04/12/23 9:58 AM) ESR, [place] [0-15 mm/hr] 7 mm/hr (04/12/23 9:58 AM) 1Result Comment: Comment: The HAV total antibody assay detects both IgG and IgM but does not differentiate between them. A negative result suggests susceptibility to infection. A positive result could be due to vaccination, previously resolved infection or active infection. Testing for HAV IgM should be performed if active HAV infection is suspected. [facility] offers profiles that will automatically reflex positive HAV total antibody results to IgM (e.g., panel #[id number] HAV Antibody w/ Rfx). Performed At: [address] [id number] Joseph Guallpa MD Ph:[phone] 2Result Comment: Performed At: [facility] [address] [id number] Joseph Guallpa MD Ph:[phone] Social History Social History Type Response Tobacco Never tobacco user T obacco Use:. Sex Patient Care team information Care Team Personnel Name: QUIANA GARDNER MD Position: No Access Member Role: Primary Care Physician Address: Address: [address] [place] [phone] [place] Care Team Related Persons Name: ALY ANGULO
--- OUTSIDE RECORDS SUMMARY | 2023-07-09 12:49 | XMS_ITS | Continuity of Care Document ---
Author Name Unknown Organization [facility] Address [address] [place] [address] Care Team Providers Care Proposal Editor Name Role Phone QUIANA FLORES MD Primary Care Physician [phone] Encounter [facility] NBR [id number] Date(s): 05/25/23 - 05/26/23 [facility] [address] [place] [address] Encounter Diagnosis Barretts esophagus(Discharge Diagnosis) - 05/26/23 Biliary colic(Discharge Diagnosis) - 05/26/23 Cholelithiasis(Discharge Diagnosis) - 05/26/23 Pyrosis(Discharge Diagnosis) - 05/26/23 GERD - Gastro-esophageal reflux disease(Discharge Diagnosis) - 05/26/23 Steatosis of liver(Discharge Diagnosis) - 05/26/23 Fatty liver(Discharge Diagnosis) - 05/26/23 Diarrhea(Discharge Diagnosis) - 05/26/23 Discharge Disposition: Home or Self Care Attending Physician: Stella Lomas APRN Allergies, Adverse Reactions, Alerts Substance Reaction Severity Status neomycin Unknown Active bacitracin Unknown Active Neosporin Unknown Active Beer Anaphylactic reaction Severe Active Dog dander Severe Active Assessment and Plan Future Appointments Future Scheduled Tests Laboratory* Hepatitis B Surface Antigen 04/12/23 * H. pylori, IgM, IgG, IgA Ab LC 04/12/23 * Hepatitis B Surface Antibody 04/12/23 * Hepatitis C Antibody 04/12/23 Functional Status 05/26/23 Other exposure to Infectious Disease Non e [...] esophagus Confirmed Active Biliary colic Confirmed Active Bipolar Confirmed Active Blepharospasm Confirmed Active Cellulitis Confirmed Active Cholelithiasis Confirmed Active Depression Confirmed Active Diarrhea Confirmed Active Dry heaves Confirmed Active DVT - Deep vein thrombosis Confirmed Active Epigastric pain Confirmed Active Esophagitis Confirmed Active Pyrosis Confirmed Active Hereditary spherocytosis Confirmed Active Hernia Confirmed Active Hiatal hernia Confirmed Active History of COVID-19 Confirmed Active Hypokalemia Confirmed Active Inguinal hernia Confirmed Active Inguinal pain Confirmed Active Elevated liver function tests Confirmed Active Morbid obesity Confirmed Active Paranoia Confirmed Active Priapism Confirmed Active Pulmonary embolism Confirmed Active Rash Confirmed Active Rectal pain Confirmed Active Penile shunt Confirmed Active Spherocytosis Confirmed Active Splenectomy Confirmed Active Steatosis of liver Confirmed Active Fatty liver Confirmed Active Superior vena cava Confirmed [...] Temperature Temporal Artery [36-38 Deg C ] 36.9 Deg C (05/26/23 10:40 AM) Apical Heart Rate [60-100 bpm] 58 bpm *LOW* (05/26/23 10:40 AM) Social History Social History Type Response Tobacco Never tobacco user T obacco Use:. Sex Physician Outpatient Note * Stella Lomas APRN: PERFORM Event Display: Office Clinic Note Physician Authored Date: [id number] GUILHERME ANGULO :1985 Age:37 years Sex:Male Visit Date:05/25/2023 Primary Care Physician: QUIANA FLORES MD Chief Complaint follow up diarrhea and pyrosis History of Present Illness Patient is a 37-year-old male here today at the request of Dr. Flores for abdominal pain, gas andbloating.?? He is an established patient here today for follow-up.?? He was complaining of left upper quadrant pain, gas and bloating. ??Since his last visit he has had a [facility] at [facility]and no longer has left upper quadrant pain and his gas and bloating have improved. ??Continues to have??pyrosis and dyspepsia despite Pepcid 20 mg daily and Protonix 40 mg twice daily. 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 ??He remains on Eliquis.? He has a??long history of elevated??total bilirubin. ??Most currently 4.13.?? He has been unconjugated since 2008.?? AST elevated at 62, ALT and a??alkaline phosphatase normal. ??Lipase has been normal.?He has had labs recently ruling out??hemochromatosis, viral and autoimmune hepatitis. ??He ishaving no further vomiting. ??He denies diarrhea since 2 weeks ago. ??Denies any melena, she is eating. ??Weight and appetite are stable.? Labs: -Labs on 09/10/2022 showed a white count of??13.11??otherwise unremarkable,??INR 1.1, lactate 0.8, TSH??2.99, complete metabolic panel??unremarkable, C. difficile negative,??Salmonella, Shigella, Campylobacter and Shiga toxin all negative, blood cultures??are negative. -04/12/2023 CBC unremarkable other than WBC 11.4, MCV of 94.4, MCH 32.1, platelets 442, MPV 10.9,??sed rate 7, complete metabolic panel unremarkable other than total bilirubin 1.5, direct bilirubin??0.2,??iron studies unremarkable.?? CRP less than 8, alpha-1 antitrypsin, serial plasmin, [place],??smooth muscles,??liver kidney microsomal antibodies??all negative.?? Celiac panel unremarkable other thanTTG??IgG slightly elevated at 70.?? Immune to hepatitis B but not to a. ??Does not have hepatitis Bor C infection.?? Pancreatic elastase??and fecal fat??normal. ??Fecal calprotectin less than 18. ?? Imaging: -09/04/2022 patient had an upper GI??series showing mild GERD. -07/27/2019 patient had a EGD showing a large hiatal hernia??and esophagitis. ??No biopsies were taken. ??Stomach and duodenum were unremarkable. -05/28/2018 patient had a EGD??showing??no evidence of impacted esophageal foreign body??there was afood bolus found in the fundus of the stomach and duodenum.?? The fundal food bolus may have recently passed quickly after induction of anesthesia??that that was only speculative.?? Significant esopha gitis at the GE junction was seen??with friability. -Ultrasound on 02/09/2023 showed cholelithiasis??otherwise unremarkable. -Ultrasound on 09/01/2022 showed cholelithiasis??and sludge in the gallbladder lumen.?? Gallbladder was mildly distended.?? Gallbladder wall thickness was in the upper limits??of normal.?? Otherwise unremarkable. -08/29/2019 CT scan of the abdomen and pelvis with contrast??done for epigastric and left upper quadrant pain??showed multiple gallstones in the gallbladder lumen??without gallbladder distention. ??There is no stones in the common bile duct and the common bile duct was not dilated.?? No evidence of pancreatic mass??or abnormalities.?? IVC filter??remains??in status or to reposition. -CT scan of the abdomen and pelvis with contrast??done??02/15/2022??was unremarkable. ?? Patient denies ever having a colonoscopy. ?? Clear of any family history??of gastrointestinal cancers, celiac disease or inflammatory bowel disease. ?? Patient is a poor historian. ??He speaks in a muffled voice.?He wears a hoodie and a surgicalmask only his eyes are??showing.?He avoids eye contact.?? Review of Systems Pertinent positives and negatives are discussed in HPI. ?? Physical Exam Vitals & Measurements T:??36.9?C ??(Temporal Artery)?? HR:??58??(Apical)?? SpO2:??98%?? General: Well-nourished well-developed??male??in no acute distress. HEENT: Head is normocephalic, trachea midline, and no cervical lymphadenopathy. Respiratory: Respirations are even and unlabored. ??Lungs are clear to auscultation. Cardiovascular: Regular rate and rhythm with S1 and S2. Abdomen: Positive bowel sounds x4 quadrants, no masses, no guarding, no tenderness. ??No hepatosplenomegaly. ??Abdomen is soft. Skin: Warm, dry, and pink. Neurological: Alert and oriented x3, speech is clear and gait is steady. Psychological: Pleasant, calm and cooperative. Assessment/Plan 1.??Barretts esophagus??K22.70 Last EGD was in 2019. ??We do not have a copy of the pathology.?? He would be due for surveillance??if he does have Jensen's esophagus. ??He is having pyrosis despite twice daily pantoprazole 40 mg??and Pepcid 20 mg once daily.?? Will need to wait at least 3 months??if not 6??before being able to stop the Eliquis??given his recent??MISTY??unable to do an EGD.?? See patient back in 3 months and reassess.?? We will discuss proceeding with EGD at that time. 2.??Biliary colic??K80.50 She reports being status post cholecystectomy. ??Denies any further??pain. 3.??Cholelithiasis??K80.20 As above. 4.??Pyrosis??R12 As above. Continue pantoprazole 40 mg twice daily to 20 mg daily. ??We discussed reflux triggering foods and beverages to avoid,??avoid eating 3 hours before bedtime and eat small frequent meals. 5.??GERD - Gastro-esophageal reflux disease??K21.9 As above. 6.??Steatosis of liver??K76.0,??Fatty liver??K76.0 As above. ??Discussed??weight loss to??get to a healthy weight??and be able to maintain that slowedfrom progression??fatty liver disease to cirrhosis and its associated complications.?? Does not have cirrhosis at this time. 8.??Diarrhea??R19.7 Denies any at this time for the past 2 weeks.?? Fecal fat??pancreatic elastase as well as fecal calprotectin were negative. ??Celiac disease has been ruled out.?? Recommend high-fiber diet.?? 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 ??If that is to be the case consider??colestipol??or Questran powder. Orders: Follow-up Appointment Request [facility], *Est. 08/26/23 +/- 21 days, Future Order, f/u GERD, In Approximately, [facility] Voice recognition software utilized which may result in minor control operator error. Problem List/Past Medical History Ongoing Abdominal pain Acid reflux Anxiety Asplenia Barretts esophagus Biliary colic Bipolar Blepharospasm Bloating Cellulitis Cholelithiasis Common bile duct dilation Depression Diarrhea Dry heaves DVT - Deep vein thrombosis Elevated liver function tests Epigastric pain Esophagitis Fatty liver Hereditary spherocytosis Hernia Hiatal hernia History of COVID-19 Hypokalemia Inguinal hernia Inguinal pain Morbid obesity Paranoia Penile shunt Priapism Pulmonary embolism Pyrosis Rash Rectal pain Spherocytosis Splenectomy Steatosis of liver Superior vena cava Thoracic back pain Thyroid disease Thyroid follicular adenoma Tricuspid regurgitation Historical Bilirubin level elevated GERD - Gastro-esophageal reflux disease Nausea Nausea and vomiting Procedure/Surgical History ???Upper GI (gastrointestinal) endoscopy (09/04/2022)???Thyroid [...] Family history is negative Electronically Signed on 05/26/23 11:40 AM Stella Lomas APRN Patient Care team information Care Team Personnel Name: QUIANA FLORES MD Position: No Access Member Role: Primary Care Physician Address: Address: [address] [place] [phone] [facility] Care Team Related Persons Name: ALY ANGULO
--- OUTSIDE RECORDS SUMMARY | 2023-07-09 12:49 | XMS_ITS | Continuity of Care Document ---
Author Name Unknown Organization [facility] Address [address] [place] [address] Care Team Providers Care Supervisor Metal Placing Name Role Phone QUIANA GARDNER MD Primary Care Physician Encounter [facility] NBR [id number] Date(s): 04/14/23 - 04/14/23 [facility] [address] [place], [place] [address] Discharge Disposition: Home or Self Care Attending Physician: Stella Lomas APRN Admitting Physician: Stella Lomas APRN Referring Physician: QUIANA GARDNER MD Allergies, Adverse Reactions, Alerts Substance Reaction Severity Status neomycin Unknown Active bacitracin Unknown Active Neosporin Unknown Active Beer Anaphylactic reaction Severe Active Dog dander Severe Active Assessment and Plan Future Appointments Diagnostic Tests Pending * Calprotectin, Fecal LC 04/14/23 * Pancreatic Elastase, Fecal LC 04/14/23 * Fecal Fat, Qualitative LC 04/14/23 Future Scheduled Tests Laboratory* Hepatitis B Surface [...] Completed Surgery 2 Completed 1left 2penile shunt Social History Social History Type Response Tobacco Never tobacco user T obacco Use:. Sex Patient Care team information Care Team Personnel Name: QUIANA GARDNER MD Position: No Access Member Role: Primary Care Physician Address: Address: [address] [place] [phone] [facility] Care Team Related Persons Name: ALY ANGULO
--- OUTSIDE RECORDS SUMMARY | 2023-07-09 12:49 | XMS_ITS | Continuity of Care Document ---
Author Name Unknown Organization [facility] Address [address] [place] [address] Care Team Providers Care Dental Scheduling Coordinator Name Role Phone Unavailable, Physician Primary Care Physician Un available Encounter [facility] NBR [id number] Date(s): 08/27/22 - 08/27/22 [facility] [address], [place] [address] Encounter Diagnosis Abdominal pain in male(Discharge Diagnosis) - 08/27/22 Cholelithiases(Discharge Diagnosis) - 08/27/22 Common bile duct dilation(Discharge Diagnosis) - 08/27/22 Discharge Disposition: Home or Self Care Attending Physician: Thu Oreilly MD Admitting Physician: Thu Oreilly MD Allergies, Adverse Reactions, Alerts Substance Reaction Severity Status neomycin Unknown Active bacitracin Unknown Active Neosporin Unknown Active Beer Severe Active Functional Status 08/27/22 Family Member Travel History No recent t ravel Recent Travel History No recent travel Other exposure to Infectious Disease Non e [...] 0 Refill(s) Start Date: 08/27/22 Status: Ordered Mental Status 08/27/22 Eye Opening Response [place] Spontaneous ly Best Verbal Response [place] Oriented Best Motor Response [place] Obeys comman ds Wade Coma Score 15 Results Laboratory List Name Date Basic Metabolic Panel 08/27/22 CBC w/ Diff 08/27/22 Hepatic Function Panel 08/27/22 Lipase Level 08/27/22 PT/ INR 08/27/22 Automated Diff 08/27/22 Most recent to oldest [Reference Range]: 1 WBC [4.8-10.8 K/mcL] 12.7 K/mcL *HI* (08/27/22 11:15 AM) RBC [4.20-6.10 Million/mcL] 5.10 Million /mcL (08/27/22 11:15 AM) Neutro Auto [42.2-75.2 %] 64.3 % (08/27/22 11:15 AM) Lymph Auto [20.5-51.1 %] 26.8 % (08/27/22 11:15 AM) Izard Auto [1.7-9.3 %] 7.9 % (08/27/22 11:15 AM) Basophil Auto [0.0-0.8 %] 0.3 % (08/27/22 11:15 AM) Prothrombin Time [9.1-10.6 seconds] 10.4 seconds (08/27/22 11:15 AM) INR [0.9-1.1] 1.0 (08/27/22 11:15 AM) BUN [8-26 mg/dL] 12 mg/dL (08/27/22 11:15 AM) Glucose Level [74-106 mg/dL] 103 mg/dL (08/27/22 11:15 AM) Potassium Level [3.5-5.1 mmol/L] 3.5 mmo l/L (08/27/22 11:15 AM) Baso Absolute [0.0-0.2 K/mcL] 0.0 K/mcL (08/27/22 1115 AM) MCV [80.0-94.0 fL] 89.6 fL (08/27/22 11:15 AM) AST [15-41 IntlUnit/L] 48 IntlUnit/L *HI* (08/27/22 1115 AM) ALT [17-63 IntlUnit/L] 27 IntlUnit/L (08/27/22 11:15 AM) MCHC [32.0-36.0 g/dL] 34.6 g/dL (08/27/2215 AM) Osmolality [275-295 mOsm/kg] 266 mOsm/kg *LOW* (08/27/2215 AM) Sodium Level [134-143 mmol/L] 133 mmol/L *LOW* (08/27/22:15 AM) Lymph Absolute [1.2-3.4 K/mcL] 3.4 K/mcL (08/27/22 11:15 AM) Hct [42.0-52.0 %] 45.7 % (08/27/22 11:15 AM) Lipase Level [18-51 unit/L] 50 unit/L (08/27/2215 AM) Calcium Level [8.9-10.3 mg/dL] 9.5 mg/dL (08/27/22 11:15 AM) Izard Absolute [0.1-0.6 K/mcL] 1.0 K/mcL *HI* (08/27/22 11:15 AM) Albumin Level [3.5-5.0 g/dL] 4.6 g/dL (08/27/22 11:15 AM) Protein Total [6.5-8.1 g/dL] 8.8 g/dL *HI* (08/27/22 11:15 AM) MCH [27.0-31.0 pg] 31.0 pg (08/27/22 11:15 AM) Neutro Absolute [1.4-6.5 K/mcL] 8.2 K/mc L *HI* (08/27/22 11:15 AM) Bilirubin Total [0.2-1.2 mg/dL] 2.6 mg/d L *HI* (08/27/22 11:15 AM) Hgb [14.0-18.0 g/dL] 15.8 g/dL (08/27/22 11:15 AM) Alk Phos [38-130 IntlUnit/L] 61 IntlUnit /L (08/27/22 11:15 AM) MPV [7.4-10.4 fL] 10.0 fL (08/27/22 11:15 AM) Bilirubin Direct 0.4 *NA* (08/27/22 11:15 AM) Platelets [130-400 K/mcL] 537 K/mcL *HI* (08/27/22 11:15 AM) CO2 [22-32 mmol/L] 26 mmol/L (08/27/22 11:15 AM) Eos Absolute [0.0-0.2 K/mcL] 0.1 K/mcL (08/27/22 11:15 AM) Chloride Level [98-111 mmol/L] 98 mmol/L (08/27/22 11:15 AM) RDW-CV [11.5-14.5 %] 14.6 % *HI* (08/27/22 11:15 AM) A/G Ratio 1.1 *NA* (08/27/22 11:15 AM) BUN/Creat Ratio [8.0-20.0] 14.0 (08/27/22 11:15 AM) Globulin 4.2 *NA* (08/27/22 11:15 AM) Imm Gran Absolute 0.03 *NA* (08/27/22 11:15 AM) Imm Gran Auto [0.0-0.5 %] 0.2 % (08/27/22 11:15 AM) Creatinine Level [0.61-1.24 mg/dL] 0.86 mg/dL (08/27/22 11:15 AM) Anion Gap [3.0-12.0] 9.0 (08/27/22 11:15 AM) Eos, Auto [0.00-3.00 %] 0.50 % (08/27/22 11:15 AM) eGFR CKD-EPI [>=60 mL/min/1.73 m2] 114 m L/min/1.73 m2 (08/27/22 11:15 AM) Radiology Reports * Exam Date Time Procedure Performing Provider Status 08/27/22 12:19 PM US Abdomen Limited Marvin Tucker; Bing th (Verified) Notes: (US Abdomen Limited) Reason For Exam: Abdominal pain, right upper quadrant US Abdomen Limited EXAM DESCRIPTION: US Abdomen Limited 08/27/2022 INDICATION: ABDOMINAL PAIN, RIGHT UPPER QUADRANT TECHNIQUE: Grayscale and color Doppler ultrasound examination of the right upper quadrant region of the abdomen. COMPARISON: None FINDINGS: Liver measures 15.3 cm in maximum dimension. Normal homogeneous hepatic echotexture with no focal hepatic lesion identified. No hepatic surface nodularity or evidence of significant hepatic steatosis. The main portal vein is patent with normal flow direction No ascites in the right upper quadrant The pancreas is obscured by overlying bowel gas Echogenic, shadowing gallstones in the gallbladder. No gallbladder wall thickening or pericholecystic fluid. Common bile duct is mildly dilated measuring 6.7 mm in diameter. No significant intrahepatic biliary dilatation Right kidney measures 10.1 cm in maximum dimension. No focal right renal mass, hydronephrosis or perinephric fluid collection. IMPRESSION: Cholelithiasis. No gallbladder wall thickening or pericholecystic fluid Common bile duct is mildly dilated measuring 6.7 mm in diameter. JOB #: [id number] Final Signed by: Chase Diaz MD Signed (Electronic Signature): 08/27/2022 1:07 pm Vital Signs Most recent to oldest [Reference Range]: 1 Temperature Tympanic [36.6-37.9 Deg C] 3 6.2 Deg C *LOW* (08/27/22 9:07 AM) Peripheral Pulse Rate [60-100 bpm] 89 bp m (08/27/22 9:07 AM) Respiratory Rate [12-24 br/min] 17 br/mi n (08/27/22 9:07 AM) Blood Pressure [90-140/60-90 mmHg] 144/9 0mmHg *HI* (08/27/22 9:07 AM) Weight 122.47 kg (08/27/22 9:07 AM) Weight Dosing 122.47 kg (08/27/22 9:43 AM) Height 177.800 cm (08/27/22 9:07 AM) Height/Length Dosing 177.800 cm (08/27/22 9:43 AM) Body Mass Index 39.000 kg/m2 (08/27/22 9:07 AM) Social History Social History Type Response Tobacco Never tobacco user T obacco Use:. Sex Hospital Discharge Instructions Patient Education 08/27/2022 14:09:32 Gallbladder Eating Plan Gallbladder Eating Plan If you have a gallbladder condition, you may have trouble digesting fats. Eating a low-fat diet canhelp reduce your symptoms, and may be helpful before and after having surgery to remove your gallbladder (cholecystectomy). Your health care provider may recommend that you work with a diet and nutrition teacher (dietitian) to help you reduce the amount of fat in your diet. What are tips for following this plan? General guidelines ??? Limit your fat intake to less than 30% of your total daily calories. If you eat around 1,800 calories each day, this is less than 60 grams (g) of fat per day. ??? Fat is an important part of a healthy diet. Eating a low-fat diet can make it hard to maintain a healthy body weight. Ask your dietitian how much fat, calories, and other nutrients you need each day. ??? Eat small, frequent meals throughout the day instead of three large meals. ??? Drink at least 8???10 cups of fluid a day. Drink enough fluid to keep your urine clear or pale yellow. ??? Limit alcohol intake to no more than 1 drink a day for non women and 2 drinks a day formen. One drink equals 12 oz of beer, 5 oz of wine, or 1?? oz of hard liquor. Reading food labels ??? Check Nutrition Facts on food labels for the amount of fat per serving. Choose foods with less than 3 grams of fat per serving. Shopping ??? Choose nonfat and low-fat healthy foods. Look for the words nonfat, low fat, or fat free. ??? Avoid buying processed or prepackaged foods. Cooking ??? Cook using low-fat methods, such as baking, broiling, grilling, or boiling. ??? Cook with small amounts of healthy fats, such as olive oil, grapeseed oil, canola oil, or sunflower oil. What foods are recommended? All fresh, frozen, or canned fruits and vegetables. ??? Whole grains. ??? Low-fat or non-fat (skim) milk and yogurt. ??? Lean meat, skinless poultry, fish, eggs, and beans. ??? Low-fat protein supplement powders or drinks. ??? Spices and herbs. What foods are not recommended? High-fat foods. These include baked goods, fast food, fatty cuts of meat, ice cream, welsh toast, sweet rolls, pizza, cheese bread, foods covered with butter, creamy sauces, or cheese. ??? Fried foods. These include welsh fries, tempura, battered fish, breaded chicken, fried breads,and sweets. ??? Foods with strong odors. ??? Foods that cause bloating and gas. Summary ??? A low-fat diet can be helpful if you have a gallbladder condition, or before and after gallbladder surgery. ??? Limit your fat intake to less than 30% of your total daily calories. This is about 60 g of fat if you eat 1,800 calories each day. ??? Eat small, frequent meals throughout the day instead of three large meals. This information is not intended to replace advice given to you by your health care provider. Make sure you discuss any questions you have with your health care provider. Document Revised: 01/30/2021 Document Reviewed: 01/30/2021 [employer] Patient Education ?? 2021 [employer]. 08/27/2022 14:09:26 Food Choices for Gastroesophageal Reflux Disease, Adult Food Choices for Gastroesophageal Reflux Disease, Adult When you have gastroesophageal reflux disease (GERD), the foods you eat and your eating habits are very important. Choosing the right foods can help ease the discomfort of GERD. Consider working witha dietitian to help you make healthy food choices. What are tips for following this plan? Reading food labels ??? Look for foods that are low in saturated fat. Foods that have less than 5% of daily value (DV) of fat and 0 g of trans fats may help with your symptoms. Cooking ??? Cook foods using methods other than frying. This may include baking, steaming, grilling, or broiling. These are all methods that do not need a lot of fat for cooking. ??? To add flavor, try to use herbs that are low in spice and acidity. Meal planning ??? Choose healthy foods that are low in fat, such as fruits, vegetables, whole grains, low-fat dairy products, lean meats, fish, and poultry. ??? Eat frequent, small meals instead of three large meals each day. Eat your meals slowly, in a relaxed setting. Avoid bending over or lying down until 2???3 hours after eating. ??? Limit high-fat foods such as fatty meats or fried foods. ??? Limit your intake of fatty foods, such as oils, butter, and shortening. ??? Avoid the following as told by your health care provider: ??? Foods that cause symptoms. These may be different for different people. Keep a food diary to keep track of foods that cause symptoms. ??? Alcohol. ??? Drinking large amounts of liquid with meals. ??? Eating meals during the 2???3 hours before bed. Lifestyle ??? Maintain a healthy weight. Ask your health care provider what weight is healthy for you. If youneed to lose weight, work with your health care provider to do so safely. ??? Exercise for at least 30 minutes on 5 or more days each week, or as told by your health care provider. ??? Avoid wearing clothes that fit tightly around your waist and chest. ??? Do not use any products that contain nicotine or tobacco. These products include cigarettes, chewing tobacco, and vaping devices, such as e-cigarettes. If you need help quitting, ask your health care provider. ??? Sleep with the head of your bed raised. Use a wedge under the mattress or blocks under the bed frame to raise the head of the bed. ??? Chew sugar-free gum after mealtimes. What foods should I eat? Eat a healthy, well-balanced diet of fruits, vegetables, whole grains, low-fat dairy products, leanmeats, fish, and poultry. Each person is different. Foods that may trigger symptoms in one person may not trigger any symptoms in another person. Work with your health care provider to identify foodsthat are safe for you. The items listed above may not be a complete list of recommended foods and beverages. Contact a dietitian for more information. What foods should I avoid? Limiting some of these foods may help manage the symptoms of GERD. Everyone is different. Consult adietitian or your health care provider to help you identify the exact foods to avoid, if any. Fruits Any fruits prepared with added fat. Any fruits that cause symptoms. For some people this may include citrus fruits, such as oranges, grapefruit, pineapple, and jd. Vegetables Deep-fried vegetables. [place] fries. Any vegetables prepared with added fat. Any vegetables that cause symptoms. For some people, this may include tomatoes and tomato products, chili peppers, onions and garlic, and horseradish. Grains Pastries or quick breads with added fat. Meats and other proteins High-fat meats, such as fatty beef or pork, hot dogs, ribs, ham, sausage, salami, and baig. Fried meat or protein, including fried fish and fried chicken. Nuts and nut butters, in large amounts. Dairy Whole milk and chocolate milk. Sour cream. Cream. Ice cream. Cream cheese. Milkshakes. Fats and oils Butter. Margarine. Shortening. Ghee. Beverages Coffee and tea, with or without caffeine. Carbonated beverages. Sodas. Energy drinks. Fruit juice made with acidic fruits, such as orange or grapefruit. Tomato juice. Alcoholic drinks. Sweets and desserts Chocolate and cocoa. Donuts. Seasonings and condiments Pepper. Peppermint and spearmint. Added salt. Any condiments, herbs, or seasonings that cause symptoms. For some people, this may include kendall, hot sauce, or vinegar-based salad dressings. The items listed above may not be a complete list of foods and beverages to avoid. Contact a dietitian for more information. Questions to ask your health care provider Diet and lifestyle changes are usually the first steps that are taken to manage symptoms of GERD. If diet and lifestyle changes do not improve your symptoms, talk with your health care provider abouttaking medicines. Where to find more information ??? [employer] G[employer]intestinal [employer]: aboutgerd.org Summary ??? When you have gastroesophageal reflux disease (GERD), food and lifestyle choices may be very helpful in easing the discomfort of GERD. ??? Eat frequent, small meals instead of three large meals each day. Eat your meals slowly, in a relaxed setting. Avoid bending over or lying down until 2???3 hours after eating. ??? Limit high-fat foods such as fatty meats or fried foods. This information is not intended to replace advice given to you by your health care provider. Make sure you discuss any questions you have with your health care provider. Document Revised: 12/23/2020 Document Reviewed: 12/23/2020 [employer] Patient Education ?? 2021 [employer]. 08/27/2022 12:41:16 Biliary Colic, Adult Biliary Colic, Adult Biliary colic is severe pain caused by a problem with the gallbladder. The gallbladder is a small organ in the upper right part of the abdomen. The gallbladder stores a digestive fluid produced in the liver (bile) that helps the body break down fat. Bile and other digestive enzymes are carried fromthe liver to the small intestine through tube-like structures called bile ducts. The gallbladder and the bile ducts form the biliary tract. Sometimes, hard deposits of digestive fluids (gallstones) form in the gallbladder and block the flow of bile from the gallbladder, causing biliary colic. This condition is also called a gallbladder attack. Gallstones can be as small as a grain of sand or as big as a golf ball. There could be just one gallstone in the gallbladder, or there could be many. What are the causes? This condition is usually caused by gallstones. Less often, a tumor could block the flow of bile from the gallbladder and trigger biliary colic. What increases the risk? The following factors may make you more likely to develop this condition: ??? Being female. ??? Having a family history of gallstones. ??? Being obese. ??? Losing weight suddenly or quickly. ??? Eating a diet that is high in calories, low in fiber, and rich in refined carbohydrates, such as white bread and white rice. ??? Having certain health conditions, such as: ??? An intestinal disease that affects nutrient absorption, such as Crohn's disease. ??? A metabolic condition, such as diabetes or metabolic syndrome. Metabolic syndrome occurs when someone has high blood pressure, high cholesterol, and diabetes. ??? A blood condition, such as hemolytic anemia or sickle cell disease. What are the signs or symptoms? The main symptom of this condition is severe pain in the upper right side of the abdomen. You may feel this pain below the chest but above the hip. This pain often occurs at night or after eating a meal that is high in fat. This pain may get worse for up to an hour and last as long as 12 hours. In most cases, the pain fades (subsides) within 2 hours. Other symptoms of this condition include: ??? Nausea and vomiting. ??? Pain under the right shoulder. How is this diagnosed? This condition is diagnosed based on your medical history, your symptoms, and a physical exam. You may also have tests, including: ??? Blood tests to rule out infection or inflammation of the bile ducts, gallbladder, pancreas, or liver. ??? Imaging studies, such as: ??? An ultrasound. ??? A CT scan. ??? An MRI. In some cases, you may need to have an imaging study done using a small amount of radioactive material (nuclear medicine) to confirm the diagnosis. How is this treated? This condition may be treated with medicines to: ??? Relieve your pain or nausea. ??? Dissolve the gallstones. It may take months or years before the gallstones are completely gone. If you have gallstones, or if you have a tumor in the gallbladder that is causing biliary colic, you may need surgery to remove the gallbladder (cholecystectomy). Follow these instructions at home: Eating and drinking ??? Drink enough fluid to keep your urine pale yellow. ??? Follow instructions from your health care provider about eating or drinking restrictions. Thesemay include avoiding: ??? Fatty, greasy, and fried foods. ??? Any foods that make the pain worse. ??? Overeating. ??? Having a large meal after not eating for a while. General instructions ??? Take [id number] and prescription medicines only as told by your health care provider. ??? Keep all follow-up visits as told by your health care provider. This is important. How is this prevented? Steps to prevent this condition include: ??? Maintaining a healthy body weight. ??? Getting regular exercise. ??? Eating a healthy diet that is high in fiber and low in fat. ??? Limiting how much sugar and refined carbohydrates you eat. Contact a health care provider if: ??? Your pain lasts more than 5 hours. ??? You vomit. ??? You have a fever and chills. ??? Your pain gets worse. Get help right away if: ??? Your skin or the whites of your eyes look yellow (jaundice). ??? Your have tea-colored urine and light-colored stools (feces). ??? You are dizzy or you faint. Summary ??? Biliary colic is severe pain caused by a problem with the gallbladder. The gallbladder is a small organ in the upper right part of your abdomen. ??? Treatment for this condition may include medicine to relieve your pain or nausea, or medicine to slowly dissolve the gallstones. ??? If you have gallstones, or if you have a tumor in the gallbladder that is causing biliary colic, you may need surgery to remove the gallbladder (cholecystectomy). This information is not intended to replace advice given to you by your health care provider. Make sure you discuss any questions you have with your health care provider. Document Revised: 06/25/2020 Document Reviewed: 04/16/2020 [employer] Patient Education ?? 2021 [employer]. 08/27/2022 12:41:13 Bilirubin Test Bilirubin Test Why am I having this test? The bilirubin test is used to evaluate liver function. A health care provider may recommend this test: ??? For a who has jaundice. ??? For an adult who has jaundice. ??? If you have hemolytic anemia. What is being tested? This test measures the level of bilirubin in the body. Bilirubin is produced when red blood cells are broken down. Normally, bilirubin is broken down in the liver and eliminated from the blood (excreted) as a component of bile. However, when red blood cells are broken down more quickly than usual, or when there is a problem in how bile is excreted, bilirubin levels can become raised (elevated). In newborns with jaundice, elevated bilirubin levels may put the child at risk for brain damage. What kind of sample is taken? This test can be performed using one of the following methods: ??? Blood sample. This is usually collected by inserting a needle into a blood vessel. ??? Urine sample. This is collected using a germ-free (sterile) container that is given to you by the lab. How do I prepare for this test? Fasting requirements for this test may vary among different labs. You may be asked not to eat or drink anything except water after midnight on the night before the test. Follow instructions from yourhealth care provider about eating or drinking restrictions. How are the results reported? Your test results will be reported as values. Your health care provider will compare your results to normal ranges that were established after testing a large group of people (reference ranges). Reference ranges may vary among labs and hospitals. For this test, common reference ranges are: ??? Blood samples ??? [place] total bilirubin: 1???12 mg/dL or 17.1???205 micromoles/L (SI units). ??? Child, adult, and adult aged 65 or older: ??? Total bilirubin: 0.3???1 mg/dL or 5.1???17 micromoles/L (SI units). ??? Indirect bilirubin: 0.2???0.8 mg/dL or 3.4???12 micromoles/L (SI units). ??? Direct bilirubin: 0.1???0.3 mg/dL or 1.7???5.1 micromoles/L (SI units). ??? Urine samples ??? 0???0.02 mg/dL or 0???0.34 micromoles/L (SI units). What do the results mean? Results that are greater than the reference ranges may indicate: ??? Gallstones or obstruction of the bile ducts. ??? Certain tumors of the liver. ??? Disorders that affect the breakdown and excretion of bilirubin. ??? Disorders that cause the destruction of red blood cells. ??? Liver diseases. ??? Reaction to certain medicines. ??? Reaction to blood transfusion. Talk with your health care provider about what your results mean. Questions to ask your health care provider Ask your health care provider, or the department that is doing the test: ??? When will my results be ready? How will I get my results? What are my treatment options? What other tests do I need? What are my next steps? Summary ??? The bilirubin test is used to evaluate liver function. ??? Bilirubin is produced when red blood cells are broken down. ??? When red blood cells are broken down more quickly than usual, or when there is a problem with how bile is excreted, bilirubin levels can become elevated. ??? Results that are greater than the reference ranges may indicate a number of diseases. This information is not intended to replace advice given to you by your health care provider. Make sure you discuss any questions you have with your health care provider. Document Revised: 09/25/2021 Document Reviewed: 09/25/2021 [employer] Patient Education ?? 2021 [employer]. 08/27/2022 12:41:05 Cholelithiasis Cholelithiasis Cholelithiasis is a disease in which gallstones form in the gallbladder. The gallbladder is an organ that stores bile. Bile is a fluid that helps to digest fats. Gallstones begin as small crystals and can slowly grow into stones. They may cause no symptoms until they block the gallbladder duct, or cystic duct, when the gallbladder tightens (contracts) after food is eaten. This can cause pain and is known as a gallbladder attack, or biliary colic. There are two main types of gallstones: ??? Cholesterol stones. These are the most common type of gallstone. These stones are made of hardened cholesterol and are usually yellow-green in color. Cholesterol is a fat-like substance that is made in the liver. ??? Pigment stones. These are dark in color and are made of a red-yellow substance, called bilirubin,that forms when hemoglobin from red blood cells breaks down. What are the causes? This condition may be caused by an imbalance in the different parts that make bile. This can happenif the bile: ??? Has too much bilirubin. This can happen in certain blood diseases, such as sickle cell anemia. ??? Has too much cholesterol. ??? Does not have enough bile salts. These salts help the body absorb and digest fats. In some cases, this condition can also be caused by the gallbladder not emptying completely or often enough. This is common during . What increases the risk? The following factors may make you more likely to develop this condition: ??? Being female. ??? Having multiple pregnancies. Health care providers sometimes advise removing diseased gallbladders before future pregnancies. ??? Eating a diet that is heavy in fried foods, fat, and refined carbohydrates, such as white breadand white rice. ??? Being obese. ??? Being older than age 40. ??? Using medicines that contain female hormones (estrogen) for a long time. ??? Losing weight quickly. ??? Having a family history of gallstones. ??? Having certain medical problems, such as: ??? Diabetes mellitus. ??? Cystic fibrosis. ??? Crohn's disease. ??? Cirrhosis or other long-term (chronic) liver disease. ??? Certain blood diseases, such as sickle cell anemia or leukemia. What are the signs or symptoms? In many cases, having gallstones causes no symptoms. When you have gallstones but do not have symptoms, you have silent gallstones. If a gallstone blocks your bile duct, it can cause a gallbladder attack. The main symptom of a gallbladder attack is sudden pain in the upper right part of the abdomen. The pain: ??? Usually comes at night or after eating. ??? Can last for one hour or more. ??? Can spread to your right shoulder, back, or chest. ??? Can feel like indigestion. This is discomfort, burning, or fullness in your upper abdomen. If the bile duct is blocked for more than a few hours, it can cause an infection or inflammation ofyour gallbladder (cholecystitis), liver, or pancreas. This can cause: ??? Nausea or vomiting. ??? Bloating. ??? Pain in your abdomen that lasts for 5 hours or longer. ??? Tenderness in your upper abdomen, often in the upper right section and under your rib cage. ??? Fever or chills. ??? Skin or the white parts of your eyes turning yellow (jaundice). This usually happens when a stone has blocked bile from passing through the common bile duct. ??? Dark urine or light-colored stools. How is this diagnosed? This condition may be diagnosed based on: ??? A physical exam. ??? Your medical history. ??? Ultrasound. ??? CT scan. ??? MRI. You may also have other tests, including: ??? Blood tests to check for signs of an infection or inflammation. ??? Cholescintigraphy, or HIDA scan. This is a scan of your gallbladder and bile ducts (biliary system) using non-harmful radioactive material and special cameras that can see the radioactive material. ??? Endoscopic retrograde cholangiopancreatogram. This involves inserting a small tube with a camera on the end (endoscope) through your mouth to look at bile ducts and check for blockages. How is this treated? Treatment for this condition depends on the severity of the condition. Silent gallstones do not need treatment. Treatment may be needed if a blockage causes a gallbladder attack or other symptoms. Treatment may include: ??? Home care, if symptoms are not severe. ??? During a simple gallbladder attack, stop eating and drinking for 12???24 hours (except for water and clear liquids). This helps to cool down your gallbladder. After 1 or 2 days, you can start to eat a diet of simple or clear foods, such as broths and crackers. ??? You may also need medicines for pain or nausea or both. ??? If you have cholecystitis and an infection, you will need antibiotics. ??? A hospital stay, if needed for pain control or for cholecystitis with severe infection. ??? Cholecystectomy, or surgery to remove your gallbladder. This is the most common treatment if all other treatments have not worked. ??? Medicines to break up gallstones. These are most effective at treating small gallstones. Medicines may be used for up to 6???12 months. ??? Endoscopic retrograde cholangiopancreatogram. A small basket can be attached to the endoscope and used to capture and remove gallstones, mainly those that are in the common bile duct. Follow these instructions at home: Medicines ??? Take [id number] and prescription medicines only as told by your health care provider. ??? If you were prescribed an antibiotic medicine, take it as told by your health care provider. Donot stop taking the antibiotic even if you start to feel better. ??? Ask your health care provider if the medicine prescribed to you requires you to avoid driving or using machinery. Eating and drinking ??? Drink enough fluid to keep your urine pale yellow. This is important during a gallbladder attack. Water and clear liquids are preferred. ??? Follow a healthy diet. This includes: ??? Reducing fatty foods, such as fried food and foods high in cholesterol. ??? Reducing refined carbohydrates, such as white bread and white rice. ??? Eating more fiber. Aim for foods such as almonds, fruit, and beans. Alcohol use ??? If you drink alcohol: ??? Limit how much you use to: ??? 0???1 drink a day for non women. ??? 0???2 drinks a day for men. ??? Be aware of how much alcohol is in your drink. In the [place] one drink equals one 12 oz bottle of beer (355 mL), one 5 oz glass of wine (148 mL), or one 1?? oz glass of hard liquor (44 mL). General instructions ??? Do not use any products that contain nicotine or tobacco, such as cigarettes, e-cigarettes, andchewing tobacco. If you need help quitting, ask your health care provider. ??? Maintain a healthy weight. ??? Keep all follow-up visits as told by your health care provider. These may include consultationswith a surgeon or specialist. This is important. Where to find more information ??? National [place] of Diabetes and Digestive and Kidney Diseases: www.niddk.nih.gov Contact a health care provider if: ??? You think you have had a gallbladder attack. ??? You have been diagnosed with silent gallstones and you develop pain in your abdomen or indigestion. ??? You begin to have attacks more often. ??? You have dark urine or light-colored stools. Get help right away if: ??? You have pain from a gallbladder attack that lasts for more than 2 hours. ??? You have pain in your abdomen that lasts for more than 5 hours or is getting worse. ??? You have a fever or chills. ??? You have nausea and vomiting that do not go away. ??? You develop jaundice. Summary ??? Cholelithiasis is a disease in which gallstones form in the gallbladder. ??? This condition may be caused by an imbalance in the different parts that make bile. This can happen if your bile has too much bilirubin or cholesterol, or does not have enough bile salts. ??? Treatment for gallstones depends on the severity of the condition. Silent gallstones do not need treatment. ??? If gallstones cause a gallbladder attack or other symptoms, treatment usually involves not eating or drinking anything. Treatment may also include pain medicines and antibiotics, and it sometimesincludes a hospital stay. ??? Surgery to remove the gallbladder is common if all other treatments have not worked. This information is not intended to replace advice given to you by your health care provider. Make sure you discuss any questions you have with your health care provider. Document Revised: 05/06/2020 Document Reviewed: 05/06/2020 [employer] Patient Education ?? 2021 [employer]. Follow Up Care 08/27/2022 09:07:35 With:QUIANA FLORES MD Address: [address] [place] [phone] When:1 week only if needed Discharge instructions * Event Display: Discharge Instructions Physician Emergency department Note * Kenrick Hernández MD: PERFORM Event Display: ED Note Physician Authored Date: [id number] KEV GUILHERME Betsey :1985 Age:36 years Sex:Male Visit Date:08/27/2022 Primary Care Physician: Unavailable, Physician Basic Information Time Seen: Kenrick Hernández MD / 08/27/2022 09:53 Chief Complaint nausea , dry heaves x 3 days . per pt sprayed self with bug spray due to bugs then may have gotten some in throat . ??seen at [facility] 2 days ago ?? h/o gallstones History Of Present Illness: Guilherme is a 36-year-old male??with chronic anxiety??who presents to the emergency department with a combination of symptoms including nausea,??vomiting starting typically 1 hour after eating,??and epigastric and right and left upper quadrant??crampy abdominal pain??with radiation around his costal margin particularly to the right side.?? Is a history of known gallstones.?? He had plan to follow-up at [facility] but??has not yet. ??He was seen yesterday at [facility]emergency department and prescribed and treated with antinauseants which??provided temporary relief.?? 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 He has??hereditary spherocytosis,??on anticoagulation which she states he has been adherent to.?? He also has GERD??and is having active GERD symptoms.?? He suffers from bipolar with severe anxiety. Review of Systems: He has had no fever though he feels hot.?? He has had no change in the color of his urine or stool.?? It is somewhat challenging to get a history. Physical Exam Vitals & Measurements T:??36.2?C ??(Tympanic)?? HR:??89??(Peripheral)?? RR:??17?? BP:??144/90?? SpO2:??99%?? HT:??177.800??cm?? WT:??122.47??kg?? BMI:??39.000?? Morbidly obese male??who is voice is soft with poor eye contact.?? He appears uncomfortable??and isintermittently moaning.?? His vital signs are unremarkable.?? Head neck exam reveals slightly dry mucous membranes. ??Neck is supple without adenopathy. ??There is no JVD that I can??see. His heart sounds are regular. ??His chest is clear. ??His abdomen is soft obese.?? He is mildly tender??particularly in the upper quadrants bilaterally.?? There??is no clear River sign.?? UltrasonicMurphy sign also appears negative.?? There is shadowing but I cannot see the gallbladder on bedsideultrasound. Medical Decision Making: This is a complicated patient??with multiple chronic medical problems??who??is a somewhat challenging historian.?? His symptoms are most consistent with acute cholecystitis. ??Bedside ultrasound??is not helpful.?? We will obtain a??formal ultrasound, laboratory evaluation, and reassessment. ?? The patient got some relief??from initial treatment with 1 mg of hydromorphone and 4 mg of ondansetron. ??He had no evidence of vomiting during his emergency department stay. ??He was given acetaminophen 1 g??orally and tolerated this. ??He was also given a GI cocktail due to complaints of acid reflux??that is a chronic problem for him as well as 40 mg of intravenous pantoprazole.?? He tolerated all these during his stay and had some improvement??and was more verbal??on reevaluation. ?? Reexamination of his abdomen revealed??minimal tenderness??without??rebound or percussion tenderness. ??River sign continued to be negative.?? He was in no distress.?? He continued to have poor eye contact, soft voice,??and some mild??grunting type sensation; but a discussion with his primary care provider suggested that this was his normal behavior at all the visits he has had.?? We discussed concerning symptoms as listed in his patient instructions??and he seemed to understand these well. Procedure No Qualifying Data Reexamination/Reevaluation Patient was reexamined on 3 occasions over the course of his extended emergency department stay.?? He showed some mild improvement. ??He showed increased verbal??discussion. ??His vital signs were unremarkable.?? He never showed signs of toxicity though his behavior was??unusual???confirmed baseline per primary care. Assessment/Plan 1.??Abdominal pain in male??R10.9 Most likely biliary colic. ??Clear gallstones. ??No evidence of cholecystitis.?? May need cholecystectomy more urgently if this continues.?? Stick to a nonfat diet. ??We reviewed this verbally in some detail. 2.??Cholelithiases??K80.20 3.??Common bile duct dilation??K83.8 Unclear significance to minor dilation. ??Likely needs reevaluation if he does not proceed to cholecystectomy relatively soon. 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, First Dose: 08/27/22 10:36:00 EST, Routine Sodium Chloride 0.9% 1,000 mL, Total Volume (mL): 1,000, 1,000 mL, Soln-IV, IV Bolus, 999 mL/hr, Start Date: 08/27/22 10:35:00 EST, 122.47 kg, Populate Charting Weight From Order, 2.46, m2 Cardiac Monitoring, 08/27/22 10:35:00 EST, Once, Stop date 08/27/22 10:35:00 EST Discharge Patient, 08/27/22 15:06:00 EST Discharge Patient, 08/27/22 13:40:00 EST Lipase Level, Blood, Stat, 08/27/22 13:45:00 EST, Once, Nurse collect Vital Signs, 08/27/22 10:35:00 EST, Once, Stop date 08/27/22 10:35:00 EST, Q15min until stable and SBP greater than 90, then Q1hour Patient Education Gallbladder Eating Plan Food Choices for Gastroesophageal Reflux Disease, Adult Biliary Colic, Adult Bilirubin Test Cholelithiasis Follow Up With When Contact Information QUIANA FLORES MD Within 1 week, only if needed [address] [place] [phone] Additional Instructions: Medication Reconciliation Unchanged acetaminophen (acetaminophen 325 mg oral tablet)2 tab Oral (given by mouth) every 4 hours as neededas needed for fever. ?? apixaban (apixaban 5 mg oral tablet)1 tab Oral (given by mouth) 2 times a day. ?? betamethasone topical (betamethasone dipropionate 0.05% topical cream)1 Application Topical (on theskin) 2 times a day. ?? clonazePAM (clonazePAM 1 mg oral tablet) ?? diclofenac topical (diclofenac 1% topical gel)1 Application Topical (on the skin) 4 times a day. ?? EPINEPHrine (!-EpiPen Auto-Injector) ?? famotidine (famotidine 20 mg oral tablet) ?? fluticasone (fluticasone propionate) ?? hydrocortisone topical (hydrocortisone 2.5% topical cream) ?? hydrocortisone topical (hydrocortisone 2.5% topical cream) ?? pantoprazole (pantoprazole 40 mg oral delayed release tablet) ?? risperiDONE (risperiDONE 0.5 mg oral tablet) ?? sertraline (sertraline 100 mg oral tablet) Problem List/Past Medical History Ongoing No qualifying data Historical No qualifying data Medication Administration Given Sodium Chloride 0.9%, 1000 mL, IV Bolus Dilaudid, 1 mg, IV Push haloperidol, 2 mg, Oral Normal Saline Flush, 10 mL, IV Flush ondansetron, 4 mg, IV Push pantoprazole, 40 mg, IV Push Allergies Beer Neosporin bacitracin neomycin Social History Electronic Cigarette/Vaping Electronic Cigarette Use: Never. Tobacco Never tobacco user Tobacco Use:. Diagnostic Results US Abdomen Limited 08/27/2022 13:09 EST US Abdomen Limited ?? 08/27/22 13:07:10 EXAM DESCRIPTION: US Abdomen Limited ?? 08/27/2022 ?? INDICATION: ABDOMINAL PAIN, RIGHT UPPER QUADRANT ?? TECHNIQUE: Grayscale and color Doppler ultrasound examination of the right upper quadrant region of the abdomen. ?? COMPARISON: None ?? FINDINGS: Liver measures 15.3 cm in maximum dimension. Normal homogeneous hepatic echotexture with no focal hepatic lesion identified. No hepatic surface nodularity or evidence of significant hepatic steatosis. The main portal vein is patent with normal flow direction ?? No ascites in the right upper quadrant ?? The pancreas is obscured by overlying bowel gas ?? Echogenic, shadowing gallstones in the gallbladder. No gallbladder wall thickening or pericholecystic fluid. Common bile duct is mildly dilated measuring 6.7 mm in diameter. No significant intrahepatic biliary dilatation ?? Right kidney measures 10.1 cm in maximum dimension. No focal right renal mass, hydronephrosis or perinephric fluid collection. ?? IMPRESSION: Cholelithiasis. No gallbladder wall thickening or pericholecystic fluid ?? Common bile duct is mildly dilated measuring 6.7 mm in diameter. ? JOB #: [id number] Electronically Signed By: ?? Signed By: Chase Diaz MD Lab Results CBC and Differential?? LATEST RESULTS?? WBC?? 08/27/22 11:15?? 12.7 ??High?? RBC?? 08/27/22 11:15?? 5.10?? Hgb?? 08/27/22 11:15?? 15.8?? Hct?? 08/27/22 11:15?? 45.7?? MCV?? 08/27/22 11:15?? 89.6?? MCH?? 08/27/22 11:15?? 31.0?? MCHC?? 08/27/22 11:15?? 34.6?? RDW-CV?? 08/27/22 11:15?? 14.6 ??High?? Platelets?? 08/27/22 11:15?? 537 ??High?? MPV?? 08/27/22 11:15?? 10.0?? Neutro Auto?? 08/27/22 11:15?? 64.3?? Lymph Auto?? 08/27/22 11:15?? 26.8?? Izard Auto?? 08/27/22 11:15?? 7.9?? Eos, Auto?? 08/27/22 11:15?? 0.50?? Basophil Auto?? 08/27/22 11:15?? 0.3?? Imm Gran Auto?? 08/27/22 11:15?? 0.2?? Neutro Absolute?? 08/27/22 11:15?? 8.2 ??High?? Lymph Absolute?? 08/27/22 11:15?? 3.4?? Izard Absolute?? 08/27/22 11:15?? 1.0 ??High?? Eos Absolute?? 08/27/22 11:15?? 0.1?? Baso Absolute?? 08/27/22 11:15?? 0.0?? Imm Gran Absolute?? 08/27/22 11:15?? 0.03? Coagulation?? LATEST RESULTS?? Prothrombin Time?? 08/27/22 11:15?? 10.4?? INR?? 08/27/22 11:15?? 1.0? Routine Chemistry?? LATEST RESULTS?? Sodium Level?? 08/27/22 11:15?? 133 ??Low?? Potassium Level?? 08/27/22 11:15?? 3.5?? Chloride Level?? 08/27/22 11:15?? 98?? CO2?? 08/27/22 11:15?? 26?? Alk Phos?? 08/27/22 11:15?? 61?? AST?? 08/27/22 11:15?? 48 ??High?? ALT?? 08/27/22 11:15?? 27?? BUN?? 08/27/22 11:15?? 12?? Glucose Level?? 08/27/22 11:15?? 103?? Creatinine Level?? 08/27/22 11:15?? 0.86?? BUN/Creat Ratio?? 08/27/22 11:15?? 14.0?? Calcium Level?? 08/27/22 11:15?? 9.5?? Protein Total?? 08/27/22 11:15?? 8.8 ??High?? Albumin Level?? 08/27/22 11:15?? 4.6?? Globulin?? 08/27/22 11:15?? 4.2?? A/G Ratio?? 08/27/22 11:15?? 1.1?? Bilirubin Total?? 08/27/22 11:15?? 2.6 ??High?? Bilirubin Direct?? 08/27/22 11:15?? 0.4?? Anion Gap?? 08/27/22 11:15?? 9.0?? Lipase Level?? 08/27/22 11:15?? 50?? Osmolality?? 08/27/22 11:15?? 266 ??Low?? eGFR CKD-EPI?? 08/27/22 11:15?? 114? Electronically Signed on 08/27/22 03:11 PM Kenrick Hernández MD Emergency department Discharge instructions * Kenrick Hernández MD: PERFORM Event Display: ED Discharge Information Authored Date: [id number] GUILHERME ANGULO :1985 Age:36 years Sex:Male Visit Date:08/27/2022 Primary Care Physician: Unavailable, Physician Discharge Instructions We would like to thank you for allowing us to assist you with your healthcare needs. The following includes patient education materials and information regarding your injury/illness. Diagnosis from Today's Visit Abdominal pain in male Cholelithiases Common bile duct dilation Discharge Vitals Temperature??(Tympanic) 97.2 ??F (36.2 ??C) Heart Rate??(Peripheral) 89 Respiratory Rate?? 17 Blood Pressure?? 144/90?? Height?? 70.00 in (177.800 cm) Weight?? 270.05 lb (122.47 kg) BMI?? 39.000 Allergies Beer Neosporin bacitracin neomycin What to Do Next Instructions from Your Care Team Stick to a diet with no fat. ??This means starting with clear fluids and slowly advancing to foods that contain??no fat.?? If you develop a fever,??your stool turns??anderson to white, or your urine turns??the color of tea or Coca- Cola,??immediately get evaluated in an emergency department or [facility]?? Otherwise follow-up with Dr. Flores??to assist in getting set up??to have??a removal of your gallbladder??considered.?? Repeat ultrasound to look at the common bile duct??and to compare the common bile duct with our reading which was??slightly dilated, would be appropriate. You Need to Schedule the Following Appointments Follow Up with??QUIANA FLORES MD When:??Within 1 week, only if needed Where: [address] [place] [phone] You were treated today on an emergency basis; it may be renner to contact your primary care provider to notify them of your visit today. You may have been referred to your regular doctor or a specialist, please follow up as instructed. If your condition worsens or you can't get in to see the doctor, contact the Emergency Department. Medications What How Much When Instructions Next Dose Unchanged acetaminophen (acetaminophen 325 mg oral tablet) 2 tab Oral (given by mouth) Every 4 hours as needed for as needed for fever Unchanged apixaban (apixaban 5 mg oral tablet) 1 tab Oral (given by mouth) 2 times a day Unchanged betamethasone topical (betamethasone dipropionate 0.05% topical cream) 1 Application Topical (on the skin) 2 times a day Unchanged clonazePAM (clonazePAM 1 mg oral tablet) Unchanged diclofenac topical (diclofenac 1% topical gel) 1 Application Topical (on the skin) 4 times a day Unchanged EPINEPHrine (!-EpiPen Auto-Injector) Unchanged famotidine (famotidine 20 mg oral tablet) Unchanged fluticasone (fluticasone propionate) Unchanged hydrocortisone topical (hydrocortisone 2.5% topical cream) Unchanged hydrocortisone topical (hydrocortisone 2.5% topical cream) Unchanged pantoprazole (pantoprazole 40 mg oral delayed release tablet) Unchanged risperiDONE (risperiDONE 0.5 mg oral tablet) Unchanged sertraline (sertraline 100 mg oral tablet) Education Materials Gallbladder Eating Plan If you have a gallbladder condition, you may have trouble digesting fats. Eating a low-fat diet canhelp reduce your symptoms, and may be helpful before and after having surgery to remove your gallbladder (cholecystectomy). Your health care provider may recommend that you work with a diet and nutrition teacher (dietitian) to help you reduce the amount of fat in your diet. What are tips for following this plan? General guidelines ? Limit your fat intake to less than 30% of your total daily calories. If you eat around 1,800 calories each day, this is less than 60 grams (g) of fat per day. ? Fat is an important part of a healthy diet. Eating a low-fat diet can make it hard to maintain a healthy body weight. Ask your dietitian how much fat, calories, and other nutrients you need each day. ? Eat small, frequent meals throughout the day instead of three large meals. ? Drink at least 8???10 cups of fluid a day. Drink enough fluid to keep your urine clear or pale yellow. ? Limit alcohol intake to no more than 1 drink a day for non women and 2 drinks a day for men. One drink equals 12 oz of beer, 5 oz of wine, or 1?? oz of hard liquor. Reading food labels ? Check Nutrition Facts on food labels for the amount of fat per serving. Choose foods with less than3 grams of fat per serving. Shopping ? Choose nonfat and low-fat healthy foods. Look for the words nonfat, low fat, or fat free. ? Avoid buying processed or prepackaged foods. Cooking ? Cook using low-fat methods, such as baking, broiling, grilling, or boiling. ? Cook with small amounts of healthy fats, such as olive oil, grapeseed oil, canola oil, or sunfloweroil. What foods are recommended? All fresh, frozen, or canned fruits and vegetables. ? Whole grains. ? Low-fat or non-fat (skim) milk and yogurt. ? Lean meat, skinless poultry, fish, eggs, and beans. ? Low-fat protein supplement powders or drinks. ? Spices and herbs. What foods are not recommended? High-fat foods. These include baked goods, fast food, fatty cuts of meat, ice cream, welsh toast, sweet rolls, pizza, cheese bread, foods covered with butter, creamy sauces, or cheese. ? Fried foods. These include welsh fries, tempura, battered fish, breaded chicken, fried breads, andsweets. ? Foods with strong odors. ? Foods that cause bloating and gas. Summary ? A low-fat diet can be helpful if you have a gallbladder condition, or before and after gallbladder surgery. ? Limit your fat intake to less than 30% of your total daily calories. This is about 60 g of fat if you eat 1,800 calories each day. ? Eat small, frequent meals throughout the day instead of three large meals. This information is not intended to replace advice given to you by your health care provider. Make sure you discuss any questions you have with your health care provider. Document Revised: 01/30/2021 Document Reviewed: 01/30/2021 [employer] Patient Education ?? 2021 [employer] Food Choices for Gastroesophageal Reflux Disease, Adult When you have gastroesophageal reflux disease (GERD), the foods you eat and your eating habits are very important. Choosing the right foods can help ease the discomfort of GERD. Consider working witha dietitian to help you make healthy food choices. What are tips for following this plan? Reading food labels ? Look for foods that are low in saturated fat. Foods that have less than 5% of daily value (DV) of fat and 0 g of trans fats may help with your symptoms. Cooking ? Cook foods using methods other than frying. This may include baking, steaming, grilling, or broiling. These are all methods that do not need a lot of fat for cooking. ? To add flavor, try to use herbs that are low in spice and acidity. Meal planning ? Choose healthy foods that are low in fat, such as fruits, vegetables, whole grains, low-fat dairy products, lean meats, fish, and poultry. ? Eat frequent, small meals instead of three large meals each day. Eat your meals slowly, in a relaxed setting. Avoid bending over or lying down until 2???3 hours after eating. ? Limit high-fat foods such as fatty meats or fried foods. ? Limit your intake of fatty foods, such as oils, butter, and shortening. ? Avoid the following as told by your health care provider: ? Foods that cause symptoms. These may be different for different people. Keep a food diary to keep track of foods that cause symptoms. ? Alcohol. ? Drinking large amounts of liquid with meals. ? Eating meals during the 2???3 hours before bed. Lifestyle ? Maintain a healthy weight. Ask your health care provider what weight is healthy for you. If you need to lose weight, work with your health care provider to do so safely. ? Exercise for at least 30 minutes on 5 or more days each week, or as told by your health care provider. ? Avoid wearing clothes that fit tightly around your waist and chest. ? Do not use any products that contain nicotine or tobacco. These products include cigarettes, chewing tobacco, and vaping devices, such as e-cigarettes. If you need help quitting, ask your health careprovider. ? Sleep with the head of your bed raised. Use a wedge under the mattress or blocks under the bed frame to raise the head of the bed. ? Chew sugar-free gum after mealtimes. What foods should I eat? Eat a healthy, well-balanced diet of fruits, vegetables, whole grains, low-fat dairy products, leanmeats, fish, and poultry. Each person is different. Foods that may trigger symptoms in one person may not trigger any symptoms in another person. Work with your health care provider to identify foodsthat are safe for you. The items listed above may not be a complete list of recommended foods and beverages. Contact a dietitian for more information. What foods should I avoid? Limiting some of these foods may help manage the symptoms of GERD. Everyone is different. Consult adietitian or your health care provider to help you identify the exact foods to avoid, if any. Fruits Any fruits prepared with added fat. Any fruits that cause symptoms. For some people this may include citrus fruits, such as oranges, grapefruit, pineapple, and jd. Vegetables Deep-fried vegetables. Barb[place] fries. Any vegetables prepared with added fat. Any vegetables that cause symptoms. For some people, this may include tomatoes and tomato products, chili peppers, onions and garlic, and horseradish. Grains Pastries or quick breads with added fat. Meats and other proteins High-fat meats, such as fatty beef or pork, hot dogs, ribs, ham, sausage, salami, and baig. Fried meat or protein, including fried fish and fried chicken. Nuts and nut butters, in large amounts. Dairy Whole milk and chocolate milk. Sour cream. Cream. Ice cream. Cream cheese. Milkshakes. Fats and oils Butter. Margarine. Shortening. Ghee. Beverages Coffee and tea, with or without caffeine. Carbonated beverages. Sodas. Energy drinks. Fruit juice made with acidic fruits, such as orange or grapefruit. Tomato juice. Alcoholic drinks. Sweets and desserts Chocolate and cocoa. Donuts. Seasonings and condiments Pepper. Peppermint and spearmint. Added salt. Any condiments, herbs, or seasonings that cause symptoms. For some people, this may include kendall, hot sauce, or vinegar-based salad dressings. The items listed above may not be a complete list of foods and beverages to avoid. Contact a dietitian for more information. Questions to ask your health care provider Diet and lifestyle changes are usually the first steps that are taken to manage symptoms of GERD. If diet and lifestyle changes do not improve your symptoms, talk with your health care provider abouttaking medicines. Where to find more information ? [employer]: aboutgerd.org Summary ? When you have gastroesophageal reflux disease (GERD), food and lifestyle choices may be very helpful in easing the discomfort of GERD. ? Eat frequent, small meals instead of three large meals each day. Eat your meals slowly, in a relaxed setting. Avoid bending over or lying down until 2???3 hours after eating. ? Limit high-fat foods such as fatty meats or fried foods. This information is not intended to replace advice given to you by your health care provider. Make sure you discuss any questions you have with your health care provider. Document Revised: 12/23/2020 Document Reviewed: 12/23/2020 [employer] Patient Education ?? 2021 [employer]. Biliary Colic, Adult Biliary colic is severe pain caused by a problem with the gallbladder. The gallbladder is a small organ in the upper right part of the abdomen. The gallbladder stores a digestive fluid produced in the liver (bile) that helps the body break down fat. Bile and other digestive enzymes are carried fromthe liver to the small intestine through tube-like structures called bile ducts. The gallbladder and the bile ducts form the biliary tract. Sometimes, hard deposits of digestive fluids (gallstones) form in the gallbladder and block the flow of bile from the gallbladder, causing biliary colic. This condition is also called a gallbladder attack. Gallstones can be as small as a grain of sand or as big as a golf ball. There could be just one gallstone in the gallbladder, or there could be many. What are the causes? This condition is usually caused by gallstones. Less often, a tumor could block the flow of bile from the gallbladder and trigger biliary colic. What increases the risk? The following factors may make you more likely to develop this condition: ? Being female. ? Having a family history of gallstones. ? Being obese. ? Losing weight suddenly or quickly. ? Eating a diet that is high in calories, low in fiber, and rich in refined carbohydrates, such as white bread and white rice. ? Having certain health conditions, such as: ? An intestinal disease that affects nutrient absorption, such as Crohn's disease. ? A metabolic condition, such as diabetes or metabolic syndrome. Metabolic syndrome occurs when someone has high blood pressure, high cholesterol, and diabetes. ? A blood condition, such as hemolytic anemia or sickle cell disease. What are the signs or symptoms? The main symptom of this condition is severe pain in the upper right side of the abdomen. You may feel this pain below the chest but above the hip. This pain often occurs at night or after eating a meal that is high in fat. This pain may get worse for up to an hour and last as long as 12 hours. In most cases, the pain fades (subsides) within 2 hours. Other symptoms of this condition include: ? Nausea and vomiting. ? Pain under the right shoulder. How is this diagnosed? This condition is diagnosed based on your medical history, your symptoms, and a physical exam. You may also have tests, including: ? Blood tests to rule out infection or inflammation of the bile ducts, gallbladder, pancreas, or liver. ? Imaging studies, such as: ? An ultrasound. ? A CT scan. ? An MRI. In some cases, you may need to have an imaging study done using a small amount of radioactive material (nuclear medicine) to confirm the diagnosis. How is this treated? This condition may be treated with medicines to: ? Relieve your pain or nausea. ? Dissolve the gallstones. It may take months or years before the gallstones are completely gone. If you have gallstones, or if you have a tumor in the gallbladder that is causing biliary colic, you may need surgery to remove the gallbladder (cholecystectomy). Follow these instructions at home: Eating and drinking ? Drink enough fluid to keep your urine pale yellow. ? Follow instructions from your health care provider about eating or drinking restrictions. These mayinclude avoiding: ? Fatty, greasy, and fried foods. ? Any foods that make the pain worse. ? Overeating. ? Having a large meal after not eating for a while. General instructions ? Take digh-zok-fsrzoat and prescription medicines only as told by your health care provider. ? Keep all follow-up visits as told by your health care provider. This is important. How is this prevented? Steps to prevent this condition include: ? Maintaining a healthy body weight. ? Getting regular exercise. ? Eating a healthy diet that is high in fiber and low in fat. ? Limiting how much sugar and refined carbohydrates you eat. Contact a health care provider if: ? Your pain lasts more than 5 hours. ? You vomit. ? You have a fever and chills. ? Your pain gets worse. Get help right away if: ? Your skin or the whites of your eyes look yellow (jaundice). ? Your have tea-colored urine and light-colored stools (feces). ? You are dizzy or you faint. Summary ? Biliary colic is severe pain caused by a problem with the gallbladder. The gallbladder is a small organ in the upper right part of your abdomen. ? Treatment for this condition may include medicine to relieve your pain or nausea, or medicine to slowly dissolve the gallstones. ? If you have gallstones, or if you have a tumor in the gallbladder that is causing biliary colic, you may need surgery to remove the gallbladder (cholecystectomy). This information is not intended to replace advice given to you by your health care provider. Make sure you discuss any questions you have with your health care provider. Document Revised: 06/25/2020 Document Reviewed: 04/16/2020 [employer] Patient Education ?? 2021 [employer]. Bilirubin Test Why am I having this test? The bilirubin test is used to evaluate liver function. A health care provider may recommend this test: ? For a who has jaundice. ? For an adult who has jaundice. ? If you have hemolytic anemia. What is being tested? This test measures the level of bilirubin in the body. Bilirubin is produced when red blood cells are broken down. Normally, bilirubin is broken down in the liver and eliminated from the blood (excreted) as a component of bile. However, when red blood cells are broken down more quickly than usual, or when there is a problem in how bile is excreted, bilirubin levels can become raised (elevated). In newborns with jaundice, elevated bilirubin levels may put the child at risk for brain damage. What kind of sample is taken? This test can be performed using one of the following methods: ? Blood sample. This is usually collected by inserting a needle into a blood vessel. ? Urine sample. This is collected using a germ-free (sterile) container that is given to you by the lab. How do I prepare for this test? Fasting requirements for this test may vary among different labs. You may be asked not to eat or drink anything except water after midnight on the night before the test. Follow instructions from yourhealth care provider about eating or drinking restrictions. How are the results reported? Your test results will be reported as values. Your health care provider will compare your results to normal ranges that were established after testing a large group of people (reference ranges). Reference ranges may vary among labs and hospitals. For this test, common reference ranges are: ? Blood samples ? total bilirubin: 1???12 mg/dL or 17.1???205 micromoles/L (SI units). ? Child, adult, and adult aged 65 or older: ? Total bilirubin: 0.3???1 mg/dL or 5.1???17 micromoles/L (SI units). ? Indirect bilirubin: 0.2???0.8 mg/dL or 3.4???12 micromoles/L (SI units). ? Direct bilirubin: 0.1???0.3 mg/dL or 1.7???5.1 micromoles/L (SI units). ? Urine samples ? 0???0.02 mg/dL or 0???0.34 micromoles/L (SI units). What do the results mean? Results that are greater than the reference ranges may indicate: ? Gallstones or obstruction of the bile ducts. ? Certain tumors of the liver. ? Disorders that affect the breakdown and excretion of bilirubin. ? Disorders that cause the destruction of red blood cells. ? Liver diseases. ? Reaction to certain medicines. ? Reaction to blood transfusion. Talk with your health care provider about what your results mean. Questions to ask your health care provider Ask your health care provider, or the department that is doing the test: ? When will my results be ready? How will I get my results? What are my treatment options? What other tests do I need? What are my next steps? Summary ? The bilirubin test is used to evaluate liver function. ? Bilirubin is produced when red blood cells are broken down. ? When red blood cells are broken down more quickly than usual, or when there is a problem with how bile is excreted, bilirubin levels can become elevated. ? Results that are greater than the reference ranges may indicate a number of diseases. This information is not intended to replace advice given to you by your health care provider. Make sure you discuss any questions you have with your health care provider. Document Revised: 09/25/2021 Document Reviewed: 09/25/2021 [employer] Patient Education ?? 2021 [employer]. Cholelithiasis Cholelithiasis is a disease in which gallstones form in the gallbladder. The gallbladder is an organ that stores bile. Bile is a fluid that helps to digest fats. Gallstones begin as small crystals and can slowly grow into stones. They may cause no symptoms until they block the gallbladder duct, or cystic duct, when the gallbladder tightens (contracts) after food is eaten. This can cause pain and is known as a gallbladder attack, or biliary colic. There are two main types of gallstones: ? Cholesterol stones. These are the most common type of gallstone. These stones are made of hardened cholesterol and are usually yellow-green in color. Cholesterol is a fat-like substance that is made in the liver. ? Pigment stones. These are dark in color and are made of a red-yellow substance, called bilirubin,that forms when hemoglobin from red blood cells breaks down. What are the causes? This condition may be caused by an imbalance in the different parts that make bile. This can happenif the bile: ? Has too much bilirubin. This can happen in certain blood diseases, such as sickle cell anemia. ? Has too much cholesterol. ? Does not have enough bile salts. These salts help the body absorb and digest fats. In some cases, this condition can also be caused by the gallbladder not emptying completely or often enough. This is common during . What increases the risk? The following factors may make you more likely to develop this condition: ? Being female. ? Having multiple pregnancies. Health care providers sometimes advise removing diseased gallbladders before future pregnancies. ? Eating a diet that is heavy in fried foods, fat, and refined carbohydrates, such as white bread andwhite rice. ? Being obese. ? Being older than age 40. ? Using medicines that contain female hormones (estrogen) for a long time. ? Losing weight quickly. ? Having a family history of gallstones. ? Having certain medical problems, such as: ? Diabetes mellitus. ? Cystic fibrosis. ? Crohn's disease. ? Cirrhosis or other long-term (chronic) liver disease. ? Certain blood diseases, such as sickle cell anemia or leukemia. What are the signs or symptoms? In many cases, having gallstones causes no symptoms. When you have gallstones but do not have symptoms, you have silent gallstones. If a gallstone blocks your bile duct, it can cause a gallbladder attack. The main symptom of a gallbladder attack is sudden pain in the upper right part of the abdomen. The pain: ? Usually comes at night or after eating. ? Can last for one hour or more. ? Can spread to your right shoulder, back, or chest. ? Can feel like indigestion. This is discomfort, burning, or fullness in your upper abdomen. If the bile duct is blocked for more than a few hours, it can cause an infection or inflammation ofyour gallbladder (cholecystitis), liver, or pancreas. This can cause: ? Nausea or vomiting. ? Bloating. ? Pain in your abdomen that lasts for 5 hours or longer. ? Tenderness in your upper abdomen, often in the upper right section and under your rib cage. ? Fever or chills. ? Skin or the white parts of your eyes turning yellow (jaundice). This usually happens when a stone has blocked bile from passing through the common bile duct. ? Dark urine or light-colored stools. How is this diagnosed? This condition may be diagnosed based on: ? A physical exam. ? Your medical history. ? Ultrasound. ? CT scan. ? MRI. You may also have other tests, including: ? Blood tests to check for signs of an infection or inflammation. ? Cholescintigraphy, or HIDA scan. This is a scan of your gallbladder and bile ducts (biliary system)using non-harmful radioactive material and special cameras that can see the radioactive material. ? Endoscopic retrograde cholangiopancreatogram. This involves inserting a small tube with a camera onthe end (endoscope) through your mouth to look at bile ducts and check for blockages. How is this treated? Treatment for this condition depends on the severity of the condition. Silent gallstones do not need treatment. Treatment may be needed if a blockage causes a gallbladder attack or other symptoms. Treatment may include: ? Home care, if symptoms are not severe. ? During a simple gallbladder attack, stop eating and drinking for 12???24 hours (except for water and clear liquids). This helps to cool down your gallbladder. After 1 or 2 days, you can start to eat a diet of simple or clear foods, such as broths and crackers. ? You may also need medicines for pain or nausea or both. ? If you have cholecystitis and an infection, you will need antibiotics. ? A hospital stay, if needed for pain control or for cholecystitis with severe infection. ? Cholecystectomy, or surgery to remove your gallbladder. This is the most common treatment if all other treatments have not worked. ? Medicines to break up gallstones. These are most effective at treating small gallstones. Medicines may be used for up to 6???12 months. ? Endoscopic retrograde cholangiopancreatogram. A small basket can be attached to the endoscope and used to capture and remove gallstones, mainly those that are in the common bile duct. Follow these instructions at home: Medicines ? Take cxzp-ydh-zykgfea and prescription medicines only as told by your health care provider. ? If you were prescribed an antibiotic medicine, take it as told by your health care provider. Do notstop taking the antibiotic even if you start to feel better. ? Ask your health care provider if the medicine prescribed to you requires you to avoid driving or using machinery. Eating and drinking ? Drink enough fluid to keep your urine pale yellow. This is important during a gallbladder attack. Water and clear liquids are preferred. ? Follow a healthy diet. This includes: ? Reducing fatty foods, such as fried food and foods high in cholesterol. ? Reducing refined carbohydrates, such as white bread and white rice. ? Eating more fiber. Aim for foods such as almonds, fruit, and beans. Alcohol use ? If you drink alcohol: ? Limit how much you use to: ? 0???1 drink a day for non women. ? 0???2 drinks a day for men. ? Be aware of how much alcohol is in your drink. In the [place] one drink equals one 12 oz bottle of beer (355 mL), one 5 oz glass of wine (148 mL), or one 1?? oz glass of hard liquor (44 mL). General instructions ? Do not use any products that contain nicotine or tobacco, such as cigarettes, e- cigarettes, and chewing tobacco. If you need help quitting, ask your health care provider. ? Maintain a healthy weight. ? Keep all follow-up visits as told by your health care provider. These may include consultations with a surgeon or specialist. This is important. Where to find more information ? National [place] [employer] and Digestive and Kidney Diseases: www.niddk.nih.gov Contact a health care provider if: ? You think you have had a gallbladder attack. ? You have been diagnosed with silent gallstones and you develop pain in your abdomen or indigestion. ? You begin to have attacks more often. ? You have dark urine or light-colored stools. Get help right away if: ? You have pain from a gallbladder attack that lasts for more than 2 hours. ? You have pain in your abdomen that lasts for more than 5 hours or is getting worse. ? You have a fever or chills. ? You have nausea and vomiting that do not go away. ? You develop jaundice. Summary ? Cholelithiasis is a disease in which gallstones form in the gallbladder. ? This condition may be caused by an imbalance in the different parts that make bile. This can happenif your bile has too much bilirubin or cholesterol, or does not have enough bile salts. ? Treatment for gallstones depends on the severity of the condition. Silent gallstones do not need treatment. ? If gallstones cause a gallbladder attack or other symptoms, treatment usually involves not eating or drinking anything. Treatment may also include pain medicines and antibiotics, and it sometimes includes a hospital stay. ? Surgery to remove the gallbladder is common if all other treatments have not worked. This information is not intended to replace advice given to you by your health care provider. Make sure you discuss any questions you have with your health care provider. Document Revised: 05/06/2020 Document Reviewed: 05/06/2020 [employer] Patient Education ?? 2021 [employer]. Tests Performed Radiology US Abdomen Limited 08/27/2022 13:09 EST Medications and Immunizations Administered Given Sodium Chloride 0.9%, 1000 mL, IV Bolus Dilaudid, 1 mg, IV Push haloperidol, 2 mg, Oral Normal Saline Flush, 10 mL, IV Flush ondansetron, 4 mg, IV Push pantoprazole, 40 mg, IV Push Lab Test Name Test Result Date/Time WBC 12.7 K/mcL 08/27/2022 11:15 EST RBC 5.10 Million/mcL 08/27/2022 11:15 EST Hgb 15.8 g/dL 08/27/2022 11:15 EST Hct 45.7 % 08/27/2022 11:15 EST MCV 89.6 fL 08/27/2022 11:15 EST MCH 31.0 pg 08/27/2022 11:15 EST MCHC 34.6 g/dL 08/27/2022 11:15 EST RDW-CV 14.6 % 08/27/2022 11:15 EST Platelets 537 K/mcL 08/27/2022 11:15 EST MPV 10.0 fL 08/27/2022 11:15 EST Neutro Auto 64.3 % 08/27/2022 11:15 EST Lymph Auto 26.8 % 08/27/2022 11:15 EST Izard Auto 7.9 % 08/27/2022 11:15 EST Eos, Auto 0.50 % 08/27/2022 11:15 EST Basophil Auto 0.3 % 08/27/2022 11:15 EST Imm Gran Auto 0.2 % 08/27/2022 11:15 EST Neutro Absolute 8.2 K/mcL 08/27/2022 11:15 EST Lymph Absolute 3.4 K/mcL 08/27/2022 11:15 EST Izard Absolute 1.0 K/mcL 08/27/2022 11:15 EST Eos Absolute 0.1 K/mcL 08/27/2022 11:15 EST Baso Absolute 0.0 K/mcL 08/27/2022 11:15 EST Imm Gran Absolute 0.03 08/27/2022 11:15 EST Prothrombin Time 10.4 seconds 08/27/2022 11:15 EST INR 1.0 08/27/2022 11:15 EST Sodium Level 133 mmol/L 08/27/2022 11:15 EST Potassium Level 3.5 mmol/L 08/27/2022 11:15 EST Chloride Level 98 mmol/L 08/27/2022 11:15 EST CO2 26 mmol/L 08/27/2022 11:15 EST Alk Phos 61 IntlUnit/L 08/27/2022 11:15 EST AST 48 IntlUnit/L 08/27/2022 11:15 EST ALT 27 IntlUnit/L 08/27/2022 11:15 EST BUN 12 mg/dL 08/27/2022 11:15 EST Glucose Level 103 mg/dL 08/27/2022 11:15 EST Creatinine Level 0.86 mg/dL 08/27/2022 11:15 EST BUN/Creat Ratio 14.0 08/27/2022 11:15 EST Calcium Level 9.5 mg/dL 08/27/2022 11:15 EST Protein Total 8.8 g/dL 08/27/2022 11:15 EST Albumin Level 4.6 g/dL 08/27/2022 11:15 EST Globulin 4.2 08/27/2022 11:15 EST A/G Ratio 1.1 08/27/2022 11:15 EST Bilirubin Total 2.6 mg/dL 08/27/2022 11:15 EST Bilirubin Direct 0.4 08/27/2022 11:15 EST Anion Gap 9.0 08/27/2022 11:15 EST Lipase Level 50 unit/L 08/27/2022 11:15 EST Osmolality 266 mOsm/kg 08/27/2022 11:15 EST eGFR CKD-EPI 114 mL/min/1.73 m2 08/27/2022 11:15 EST Patient/Traffic Expert Signature Patient Name:GUILHERME ANGULO I have received this information and my questions have been answered. Patient/Traffic Expert Name: Patient/Traffic Expert Signature: Relationship to Patient: Witness Name/Signature: Date: Electronically Signed on: 08/27/2022 15:10 ESTSigned by:PL * Kenrick Hernández MD: PERFORM Event Display: ED Discharge Information Authored Date: [id number] GUILHERME ANGULO :1985 Age:36 years Sex:Male Visit Date:08/27/2022 Primary Care Physician: Unavailable, Physician Discharge Instructions We would like to thank you for allowing us to assist you with your healthcare needs. The following includes patient education materials and information regarding your injury/illness. Diagnosis from Today's Visit Abdominal pain in male Cholelithiases Common bile duct dilation Discharge Vitals Temperature??(Tympanic) 97.2 ??F (36.2 ??C) Heart Rate??(Peripheral) 89 Respiratory Rate?? 17 Blood Pressure?? 144/90?? Height?? 70.00 in (177.800 cm) Weight?? 270.05 lb (122.47 kg) BMI?? 39.000 Allergies Beer Neosporin bacitracin neomycin What to Do Next Instructions from Your Care Team Stick to a diet with no fat. ??This means starting with clear fluids and slowly advancing to foods that contain??no fat.?? If you develop a fever,??your stool turns??anderson to white, or your urine turns??the color of tea or Coca- Cola,??immediately get evaluated in an emergency department or [facility]?? Otherwise follow-up with Dr. Flores??to assist in getting set up??to have??a removal of your gallbladder??considered.?? Repeat ultrasound to look at the common bile duct??and to compare the common bile duct with our reading which was??slightly dilated, would be appropriate. You Need to Schedule the Following Appointments Follow Up with??QUIANA FLORES MD When:??Within 1 week, only if needed Where: [address] [place] [phone] You were treated today on an emergency basis; it may be renner to contact your primary care provider to notify them of your visit today. You may have been referred to your regular doctor or a specialist, please follow up as instructed. If your condition worsens or you can't get in to see the doctor, contact the Emergency Department. Medications What How Much When Instructions Next Dose Unchanged acetaminophen (acetaminophen 325 mg oral tablet) 2 tab Oral (given by mouth) Every 4 hours as needed for as needed for fever Unchanged apixaban (apixaban 5 mg oral tablet) 1 tab Oral (given by mouth) 2 times a day Unchanged betamethasone topical (betamethasone dipropionate 0.05% topical cream) 1 Application Topical (on the skin) 2 times a day Unchanged clonazePAM (clonazePAM 1 mg oral tablet) Unchanged diclofenac topical (diclofenac 1% topical gel) 1 Application Topical (on the skin) 4 times a day Unchanged EPINEPHrine (!-EpiPen Auto-Injector) Unchanged famotidine (famotidine 20 mg oral tablet) Unchanged fluticasone (fluticasone propionate) Unchanged hydrocortisone topical (hydrocortisone 2.5% topical cream) Unchanged hydrocortisone topical (hydrocortisone 2.5% topical cream) Unchanged pantoprazole (pantoprazole 40 mg oral delayed release tablet) Unchanged risperiDONE (risperiDONE 0.5 mg oral tablet) Unchanged sertraline (sertraline 100 mg oral tablet) Education Materials Biliary Colic, Adult Biliary colic is severe pain caused by a problem with the gallbladder. The gallbladder is a small organ in the upper right part of the abdomen. The gallbladder stores a digestive fluid produced in the liver (bile) that helps the body break down fat. Bile and other digestive enzymes are carried fromthe liver to the small intestine through tube-like structures called bile ducts. The gallbladder and the bile ducts form the biliary tract. Sometimes, hard deposits of digestive fluids (gallstones) form in the gallbladder and block the flow of bile from the gallbladder, causing biliary colic. This condition is also called a gallbladder attack. Gallstones can be as small as a grain of sand or as big as a golf ball. There could be just one gallstone in the gallbladder, or there could be many. What are the causes? This condition is usually caused by gallstones. Less often, a tumor could block the flow of bile from the gallbladder and trigger biliary colic. What increases the risk? The following factors may make you more likely to develop this condition: ? Being female. ? Having a family history of gallstones. ? Being obese. ? Losing weight suddenly or quickly. ? Eating a diet that is high in calories, low in fiber, and rich in refined carbohydrates, such as white bread and white rice. ? Having certain health conditions, such as: ? An intestinal disease that affects nutrient absorption, such as Crohn's disease. ? A metabolic condition, such as diabetes or metabolic syndrome. Metabolic syndrome occurs when someone has high blood pressure, high cholesterol, and diabetes. ? A blood condition, such as hemolytic anemia or sickle cell disease. What are the signs or symptoms? The main symptom of this condition is severe pain in the upper right side of the abdomen. You may feel this pain below the chest but above the hip. This pain often occurs at night or after eating a meal that is high in fat. This pain may get worse for up to an hour and last as long as 12 hours. In most cases, the pain fades (subsides) within 2 hours. Other symptoms of this condition include: ? Nausea and vomiting. ? Pain under the right shoulder. How is this diagnosed? This condition is diagnosed based on your medical history, your symptoms, and a physical exam. You may also have tests, including: ? Blood tests to rule out infection or inflammation of the bile ducts, gallbladder, pancreas, or liver. ? Imaging studies, such as: ? An ultrasound. ? A CT scan. ? An MRI. In some cases, you may need to have an imaging study done using a small amount of radioactive material (nuclear medicine) to confirm the diagnosis. How is this treated? This condition may be treated with medicines to: ? Relieve your pain or nausea. ? Dissolve the gallstones. It may take months or years before the gallstones are completely gone. If you have gallstones, or if you have a tumor in the gallbladder that is causing biliary colic, you may need surgery to remove the gallbladder (cholecystectomy). Follow these instructions at home: Eating and drinking ? Drink enough fluid to keep your urine pale yellow. ? Follow instructions from your health care provider about eating or drinking restrictions. These mayinclude avoiding: ? Fatty, greasy, and fried foods. ? Any foods that make the pain worse. ? Overeating. ? Having a large meal after not eating for a while. General instructions ? Take yvaq-wqu-dtescns and prescription medicines only as told by your health care provider. ? Keep all follow-up visits as told by your health care provider. This is important. How is this prevented? Steps to prevent this condition include: ? Maintaining a healthy body weight. ? Getting regular exercise. ? Eating a healthy diet that is high in fiber and low in fat. ? Limiting how much sugar and refined carbohydrates you eat. Contact a health care provider if: ? Your pain lasts more than 5 hours. ? You vomit. ? You have a fever and chills. ? Your pain gets worse. Get help right away if: ? Your skin or the whites of your eyes look yellow (jaundice). ? Your have tea-colored urine and light-colored stools (feces). ? You are dizzy or you faint. Summary ? Biliary colic is severe pain caused by a problem with the gallbladder. The gallbladder is a small organ in the upper right part of your abdomen. ? Treatment for this condition may include medicine to relieve your pain or nausea, or medicine to slowly dissolve the gallstones. ? If you have gallstones, or if you have a tumor in the gallbladder that is causing biliary colic, you may need surgery to remove the gallbladder (cholecystectomy). This information is not intended to replace advice given to you by your health care provider. Make sure you discuss any questions you have with your health care provider. Document Revised: 06/25/2020 Document Reviewed: 04/16/2020 [employer] Patient Education ?? 2021 [employer]. Bilirubin Test Why am I having this test? The bilirubin test is used to evaluate liver function. A health care provider may recommend this test: ? For a who has jaundice. ? For an adult who has jaundice. ? If you have hemolytic anemia. What is being tested? This test measures the level of bilirubin in the body. Bilirubin is produced when red blood cells are broken down. Normally, bilirubin is broken down in the liver and eliminated from the blood (excreted) as a component of bile. However, when red blood cells are broken down more quickly than usual, or when there is a problem in how bile is excreted, bilirubin levels can become raised (elevated). In newborns with jaundice, elevated bilirubin levels may put the child at risk for brain damage. What kind of sample is taken? This test can be performed using one of the following methods: ? Blood sample. This is usually collected by inserting a needle into a blood vessel. ? Urine sample. This is collected using a germ-free (sterile) container that is given to you by the lab. How do I prepare for this test? Fasting requirements for this test may vary among different labs. You may be asked not to eat or drink anything except water after midnight on the night before the test. Follow instructions from yourhealth care provider about eating or drinking restrictions. How are the results reported? Your test results will be reported as values. Your health care provider will compare your results to normal ranges that were established after testing a large group of people (reference ranges). Reference ranges may vary among labs and hospitals. For this test, common reference ranges are: ? Blood samples ? [place] total bilirubin: 1???12 mg/dL or 17.1???205 micromoles/L (SI units). ? Child, adult, and adult aged 65 or older: ? Total bilirubin: 0.3???1 mg/dL or 5.1???17 micromoles/L (SI units). ? Indirect bilirubin: 0.2???0.8 mg/dL or 3.4???12 micromoles/L (SI units). ? Direct bilirubin: 0.1???0.3 mg/dL or 1.7???5.1 micromoles/L (SI units). ? Urine samples ? 0???0.02 mg/dL or 0???0.34 micromoles/L (SI units). What do the results mean? Results that are greater than the reference ranges may indicate: ? Gallstones or obstruction of the bile ducts. ? Certain tumors of the liver. ? Disorders that affect the breakdown and excretion of bilirubin. ? Disorders that cause the destruction of red blood cells. ? Liver diseases. ? Reaction to certain medicines. ? Reaction to blood transfusion. Talk with your health care provider about what your results mean. Questions to ask your health care provider Ask your health care provider, or the department that is doing the test: ? When will my results be ready? How will I get my results? What are my treatment options? What other tests do I need? What are my next steps? Summary ? The bilirubin test is used to evaluate liver function. ? Bilirubin is produced when red blood cells are broken down. ? When red blood cells are broken down more quickly than usual, or when there is a problem with how bile is excreted, bilirubin levels can become elevated. ? Results that are greater than the reference ranges may indicate a number of diseases. This information is not intended to replace advice given to you by your health care provider. Make sure you discuss any questions you have with your health care provider. Document Revised: 09/25/2021 Document Reviewed: 09/25/2021 [employer] Patient Education ?? 2021 [employer] Cholelithiasis Cholelithiasis is a disease in which gallstones form in the gallbladder. The gallbladder is an organ that stores bile. Bile is a fluid that helps to digest fats. Gallstones begin as small crystals and can slowly grow into stones. They may cause no symptoms until they block the gallbladder duct, or cystic duct, when the gallbladder tightens (contracts) after food is eaten. This can cause pain and is known as a gallbladder attack, or biliary colic. There are two main types of gallstones: ? Cholesterol stones. These are the most common type of gallstone. These stones are made of hardened cholesterol and are usually yellow-green in color. Cholesterol is a fat-like substance that is made in the liver. ? Pigment stones. These are dark in color and are made of a red-yellow substance, called bilirubin,that forms when hemoglobin from red blood cells breaks down. What are the causes? This condition may be caused by an imbalance in the different parts that make bile. This can happenif the bile: ? Has too much bilirubin. This can happen in certain blood diseases, such as sickle cell anemia. ? Has too much cholesterol. ? Does not have enough bile salts. These salts help the body absorb and digest fats. In some cases, this condition can also be caused by the gallbladder not emptying completely or often enough. This is common during . What increases the risk? The following factors may make you more likely to develop this condition: ? Being female. ? Having multiple pregnancies. Health care providers sometimes advise removing diseased gallbladders before future pregnancies. ? Eating a diet that is heavy in fried foods, fat, and refined carbohydrates, such as white bread andwhite rice. ? Being obese. ? Being older than age 40. ? Using medicines that contain female hormones (estrogen) for a long time. ? Losing weight quickly. ? Having a family history of gallstones. ? Having certain medical problems, such as: ? Diabetes mellitus. ? Cystic fibrosis. ? Crohn's disease. ? Cirrhosis or other long-term (chronic) liver disease. ? Certain blood diseases, such as sickle cell anemia or leukemia. What are the signs or symptoms? In many cases, having gallstones causes no symptoms. When you have gallstones but do not have symptoms, you have silent gallstones. If a gallstone blocks your bile duct, it can cause a gallbladder attack. The main symptom of a gallbladder attack is sudden pain in the upper right part of the abdomen. The pain: ? Usually comes at night or after eating. ? Can last for one hour or more. ? Can spread to your right shoulder, back, or chest. ? Can feel like indigestion. This is discomfort, burning, or fullness in your upper abdomen. If the bile duct is blocked for more than a few hours, it can cause an infection or inflammation ofyour gallbladder (cholecystitis), liver, or pancreas. This can cause: ? Nausea or vomiting. ? Bloating. ? Pain in your abdomen that lasts for 5 hours or longer. ? Tenderness in your upper abdomen, often in the upper right section and under your rib cage. ? Fever or chills. ? Skin or the white parts of your eyes turning yellow (jaundice). This usually happens when a stone has blocked bile from passing through the common bile duct. ? Dark urine or light-colored stools. How is this diagnosed? This condition may be diagnosed based on: ? A physical exam. ? Your medical history. ? Ultrasound. ? CT scan. ? MRI. You may also have other tests, including: ? Blood tests to check for signs of an infection or inflammation. ? Cholescintigraphy, or HIDA scan. This is a scan of your gallbladder and bile ducts (biliary system)using non-harmful radioactive material and special cameras that can see the radioactive material. ? Endoscopic retrograde cholangiopancreatogram. This involves inserting a small tube with a camera onthe end (endoscope) through your mouth to look at bile ducts and check for blockages. How is this treated? Treatment for this condition depends on the severity of the condition. Silent gallstones do not need treatment. Treatment may be needed if a blockage causes a gallbladder attack or other symptoms. Treatment may include: ? Home care, if symptoms are not severe. ? During a simple gallbladder attack, stop eating and drinking for 12???24 hours (except for water and clear liquids). This helps to cool down your gallbladder. After 1 or 2 days, you can start to eat a diet of simple or clear foods, such as broths and crackers. ? You may also need medicines for pain or nausea or both. ? If you have cholecystitis and an infection, you will need antibiotics. ? A hospital stay, if needed for pain control or for cholecystitis with severe infection. ? Cholecystectomy, or surgery to remove your gallbladder. This is the most common treatment if all other treatments have not worked. ? Medicines to break up gallstones. These are most effective at treating small gallstones. Medicines may be used for up to 6???12 months. ? Endoscopic retrograde cholangiopancreatogram. A small basket can be attached to the endoscope and used to capture and remove gallstones, mainly those that are in the common bile duct. Follow these instructions at home: Medicines ? Take [id number] and prescription medicines only as told by your health care provider. ? If you were prescribed an antibiotic medicine, take it as told by your health care provider. Do notstop taking the antibiotic even if you start to feel better. ? Ask your health care provider if the medicine prescribed to you requires you to avoid driving or using machinery. Eating and drinking ? Drink enough fluid to keep your urine pale yellow. This is important during a gallbladder attack. Water and clear liquids are preferred. ? Follow a healthy diet. This includes: ? Reducing fatty foods, such as fried food and foods high in cholesterol. ? Reducing refined carbohydrates, such as white bread and white rice. ? Eating more fiber. Aim for foods such as almonds, fruit, and beans. Alcohol use ? If you drink alcohol: ? Limit how much you use to: ? 0???1 drink a day for non women. ? 0???2 drinks a day for men. ? Be aware of how much alcohol is in your drink. In the [place] one drink equals one 12 oz bottle of beer (355 mL), one 5 oz glass of wine (148 mL), or one 1?? oz glass of hard liquor (44 mL). General instructions ? Do not use any products that contain nicotine or tobacco, such as cigarettes, e- cigarettes, and chewing tobacco. If you need help quitting, ask your health care provider. ? Maintain a healthy weight. ? Keep all follow-up visits as told by your health care provider. These may include consultations with a surgeon or specialist. This is important. Where to find more information ? National [place] of Diabetes and Digestive and Kidney Diseases: www.niddk.nih.gov Contact a health care provider if: ? You think you have had a gallbladder attack. ? You have been diagnosed with silent gallstones and you develop pain in your abdomen or indigestion. ? You begin to have attacks more often. ? You have dark urine or light-colored stools. Get help right away if: ? You have pain from a gallbladder attack that lasts for more than 2 hours. ? You have pain in your abdomen that lasts for more than 5 hours or is getting worse. ? You have a fever or chills. ? You have nausea and vomiting that do not go away. ? You develop jaundice. Summary ? Cholelithiasis is a disease in which gallstones form in the gallbladder. ? This condition may be caused by an imbalance in the different parts that make bile. This can happenif your bile has too much bilirubin or cholesterol, or does not have enough bile salts. ? Treatment for gallstones depends on the severity of the condition. Silent gallstones do not need treatment. ? If gallstones cause a gallbladder attack or other symptoms, treatment usually involves not eating or drinking anything. Treatment may also include pain medicines and antibiotics, and it sometimes includes a hospital stay. ? Surgery to remove the gallbladder is common if all other treatments have not worked. This information is not intended to replace advice given to you by your health care provider. Make sure you discuss any questions you have with your health care provider. Document Revised: 05/06/2020 Document Reviewed: 05/06/2020 [employer] Patient Education ?? 2021 [employer]. Tests Performed Radiology US Abdomen Limited 08/27/2022 13:09 EST Medications and Immunizations Administered Given Sodium Chloride 0.9%, 1000 mL, IV Bolus Dilaudid, 1 mg, IV Push haloperidol, 2 mg, Oral Normal Saline Flush, 10 mL, IV Flush ondansetron, 4 mg, IV Push pantoprazole, 40 mg, IV Push Lab Test Name Test Result Date/Time WBC 12.7 K/mcL 08/27/2022 11:15 EST RBC 5.10 Million/mcL 08/27/2022 11:15 EST Hgb 15.8 g/dL 08/27/2022 11:15 EST Hct 45.7 % 08/27/2022 11:15 EST MCV 89.6 fL 08/27/2022 11:15 EST MCH 31.0 pg 08/27/2022 11:15 EST MCHC 34.6 g/dL 08/27/2022 11:15 EST RDW-CV 14.6 % 08/27/2022 11:15 EST Platelets 537 K/mcL 08/27/2022 11:15 EST MPV 10.0 fL 08/27/2022 11:15 EST Neutro Auto 64.3 % 08/27/2022 11:15 EST Lymph Auto 26.8 % 08/27/2022 11:15 EST Izard Auto 7.9 % 08/27/2022 11:15 EST Eos, Auto 0.50 % 08/27/2022 11:15 EST Basophil Auto 0.3 % 08/27/2022 11:15 EST Imm Gran Auto 0.2 % 08/27/2022 11:15 EST Neutro Absolute 8.2 K/mcL 08/27/2022 11:15 EST Lymph Absolute 3.4 K/mcL 08/27/2022 11:15 EST Izard Absolute 1.0 K/mcL 08/27/2022 11:15 EST Eos Absolute 0.1 K/mcL 08/27/2022 11:15 EST Baso Absolute 0.0 K/mcL 08/27/2022 11:15 EST Imm Gran Absolute 0.03 08/27/2022 11:15 EST Prothrombin Time 10.4 seconds 08/27/2022 11:15 EST INR 1.0 08/27/2022 11:15 EST Sodium Level 133 mmol/L 08/27/2022 11:15 EST Potassium Level 3.5 mmol/L 08/27/2022 11:15 EST Chloride Level 98 mmol/L 08/27/2022 11:15 EST CO2 26 mmol/L 08/27/2022 11:15 EST Alk Phos 61 IntlUnit/L 08/27/2022 11:15 EST AST 48 IntlUnit/L 08/27/2022 11:15 EST ALT 27 IntlUnit/L 08/27/2022 11:15 EST BUN 12 mg/dL 08/27/2022 11:15 EST Glucose Level 103 mg/dL 08/27/2022 11:15 EST Creatinine Level 0.86 mg/dL 08/27/2022 11:15 EST BUN/Creat Ratio 14.0 08/27/2022 11:15 EST Calcium Level 9.5 mg/dL 08/27/2022 11:15 EST Protein Total 8.8 g/dL 08/27/2022 11:15 EST Albumin Level 4.6 g/dL 08/27/2022 11:15 EST Globulin 4.2 08/27/2022 11:15 EST A/G Ratio 1.1 08/27/2022 11:15 EST Bilirubin Total 2.6 mg/dL 08/27/2022 11:15 EST Bilirubin Direct 0.4 08/27/2022 11:15 EST Anion Gap 9.0 08/27/2022 11:15 EST Lipase Level 50 unit/L 08/27/2022 11:15 EST Osmolality 266 mOsm/kg 08/27/2022 11:15 EST eGFR CKD-EPI 114 mL/min/1.73 m2 08/27/2022 11:15 EST Patient/Traffic Expert Signature Patient Name:GUILHERME ANGULO I have received this information and my questions have been answered. Patient/Traffic Expert Name: Patient/Traffic Expert Signature: Relationship to Patient: Witness Name/Signature: Date: Electronically Signed on: 08/27/2022 13:43 ESTSigned by:SANDIP US Abdomen limited * Chase Diaz MD: VERIFY, VERIFY Event Display: Report EXAM DESCRIPTION: US Abdomen Limited 08/27/2022 INDICATION: ABDOMINAL PAIN, RIGHT UPPER QUADRANT TECHNIQUE: Grayscale and color Doppler ultrasound examination of the right upper quadrant region of the abdomen. COMPARISON: None FINDINGS: Liver measures 15.3 cm in maximum dimension. Normal homogeneous hepatic echotexture with no focal hepatic lesion identified. No hepatic surface nodularity or evidence of significant hepatic steatosis. The main portal vein is patent with normal flow direction No ascites in the right upper quadrant The pancreas is obscured by overlying bowel gas Echogenic, shadowing gallstones in the gallbladder. No gallbladder wall thickening or pericholecystic fluid. Common bile duct is mildly dilated measuring 6.7 mm in diameter. No significant intrahepatic biliary dilatation Right kidney measures 10.1 cm in maximum dimension. No focal right renal mass, hydronephrosis or perinephric fluid collection. IMPRESSION: Cholelithiasis. No gallbladder wall thickening or pericholecystic fluid Common bile duct is mildly dilated measuring 6.7 mm in diameter. JOB #: [id number] Final Signed by: Chase Diaz MD Signed (Electronic Signature): 08/27/2022 1:07 pm Patient Care team information Care Team Personnel Name: Unavailable, Physician Position: No Access Member Role: Primary Care Physician Name: Joy Quinonez Position: Nurse Member Role: ED Nurse Name: Kenrick Hernández MD Position: Physician Member Role: ED Physician Address: Address: [address] [place] [id number] [place] Care Team Related Persons Name: ALY ANGULO
[2023-07-09 13:27] LABS: Abs Immature Grans 0.03 10^3/uL (0.0-0.06); HGB 15.5 g/dL (13.5-17.5); MCH 31.4 pg (27.0-33.0); MCHC 34.4 % (32.0-36.0); MCV 91 fL (80-95); MPV 9.5 fL (8.0-11.0); RBC 4.93 10^6/uL (4.36-5.78); RDW 13.9 % (11.8-14.1); RDW-SD 46.5 fL
[2023-07-09 13:45] LABS: ALT 43 U/L (16-63); AST 39 U/L (15-37); Albumin 3.7 g/dL (3.4-5.0); Alkaline Phosphatase 71 U/L (46-116); Anion Gap 7.6 mmol/L (3-11); BUN 22 mg/dL (7-18); Bilirubin, Total 0.8 mg/dL (0.2-1.0); CO2 29.4 mmol/L (21.0-32.0); Calcium 9.3 mg/dL (8.5-10.1); Chloride 102 mmol/L (98-107); Glucose 144 mg/dL (74-106); Magnesium 2.2 mg/dL (1.8-2.4); Potassium 3.6 mmol/L (3.5-5.1); Sodium 139 mmol/L (136-145); Total Protein 7.5 g/dL (6.4-8.2); Troponin I < 50 ng/L (< or =60)
[2023-07-09 13:55] LABS: Absolute Basophil Count 0.13 10^3/uL (0.0-0.2); Absolute Lymphocyte Count 6.86 10^3/uL (1.2-3.4); Absolute Monocyte Count 1.06 10^3/uL (0.1-0.8); Absolute Neutrophil Count 4.62 10^3/uL (1.2-6.7); Atypical Lymphocytes % 4; RBC Morphology Normal
[2023-07-09 13:56] LABS: Diff Comment Manual Differential; Platelet Count 507 10^3/uL (130-400)
[2023-07-09 14:01] LABS: D-Dimer 328 ng/mlFEU (<500)
--- NOTE | 2023-07-09 14:13 | W.ED.GENAD ---
HPI General Stated Complaint: Chest Pain Mode of arrival: ambulatory. CONSTANCE: 3 Date/Time Provider Initiated Documentation: 07/09/23 12:54. Limitations to Documentation: no limitations. Information obtained by: patient. 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) none Related Data Home Medications Medication Instructions Recorded Confirmed famotidine 20 mg tablet 20 mg PO BID #90 tabs 09/04/22 07/09/23 doxepin 10 mg capsule 10 mg PO BID itching #60 caps 10/27/22 07/09/23 cyclobenzaprine 10 mg tablet 10 mg PO TID PRN muscle spasm #20 12/24/22 07/09/23 tabs pantoprazole 40 mg tablet,delayed 40 mg PO BID #180 tabs 12/24/22 07/09/23 release acetaminophen 500 mg tablet 1,000 mg (2 x 500 mg) PO TID PRN 03/09/23 07/09/23 (Tylenol Extra Strength) pain/fever #270 tabs risperidone 0.5 mg tablet 0.5 mg PO BID #60 tabs 04/12/23 07/09/23 (Risperdal) apixaban 5 mg tablet 5 mg PO BID pulmonary embolism 05/31/23 07/09/23 #180 tabs epinephrine 0.3 mg/0.3 mL 0.3 mg (0.3 mL) IM ONCE #2 ea 06/02/23 07/09/23 injection, auto-injector (EpiPen 2-Farrukh) sertraline 100 mg tablet 200 mg (2 x 100 mg) PO DAILY #180 06/02/23 07/09/23 tabs clonazepam 1 mg tablet 1 mg PO BID PRN anxiety #60 tabs 06/30/23 07/09/23 Previous Rx's Medication Instructions Recorded famotidine 20 mg tablet 20 mg PO BID #90 tabs 09/04/22 doxepin 10 mg capsule 10 mg PO BID itching #60 caps 10/27/22 cyclobenzaprine 10 mg tablet 10 mg PO TID PRN muscle spasm #20 12/24/22 tabs pantoprazole 40 mg tablet,delayed 40 mg PO BID #180 tabs 12/24/22 release acetaminophen 500 mg tablet 1,000 mg (2 x 500 mg) PO TID PRN 03/09/23 (Tylenol Extra Strength) pain/fever #270 tabs risperidone 0.5 mg tablet 0.5 mg PO BID #60 tabs 04/12/23 (Risperdal) apixaban 5 mg tablet 5 mg PO BID pulmonary embolism 05/31/23 #180 tabs epinephrine 0.3 mg/0.3 mL 0.3 mg (0.3 mL) IM ONCE #2 ea 06/02/23 injection, auto-injector (EpiPen 2-Farrukh) sertraline 100 mg tablet 200 mg (2 x 100 mg) PO DAILY #180 06/02/23 tabs clonazepam 1 mg tablet 1 mg PO BID PRN anxiety #60 tabs 06/30/23 Allergies Allergy/AdvReac Type Severity Reaction Status Date / Time cat's claw Allergy Unknown Verified 07/09/23 12:48 neomycin Allergy Unknown Verified 07/09/23 12:48 [From Neosporin ([id number])] polymyxin B Allergy Unknown Verified 07/09/23 12:48 [From Neosporin ([id number])] bacitracin Allergy Verified 07/09/23 12:48 dog dander Allergy Verified 07/09/23 12:48 beer Allergy Severe Anaphylaxsi Uncoded 07/09/23 12:48 s Review of Systems Constitutional Constitutional: Denies fever(s), Denies headache(s) and Denies weakness Eyes Eyes: Denies change in vision ENT Ears, Nose, Mouth, and Throat: Denies headache(s) and Denies neck pain Cardiovascular Cardiovascular: Reports chest pain and Denies dyspnea Respiratory Respiratory: Denies cough and Denies dyspnea Gastrointestinal Gastrointestinal: Denies abdominal pain, Denies nausea and Denies vomiting Musculoskeletal Musculoskeletal: Denies back pain and Denies neck pain Integumentary/Breasts Skin/Breast: Denies rash Neurologic Neurologic: Denies headache(s) and Denies weakness Hematologic/Lymphatic Hematologic/Lymphatic: Reports easy bleeding and Reports easy bruising PFSH All Active Problems (Updated 07/09/23 @ 15:59 by JORGE Singleton) Ulcer of buttock (Acute) Urinary frequency (Acute) [place] disease (Acute) Cholelithiasis without obstruction (Acute) Rt inguinal pain (Acute) Eye twitch (Acute) Cellulitis (Acute) Thyroid dysfunction (Acute) 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 due to disease classified elsewhere (Chronic) 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) Elevated serum protein level (Acute) Chest pain (Acute) Hand pain, right (Acute) Pain, rectal (Acute) Abdominal pain (Acute) Left-sided thoracic back pain (Acute) Cholelithiasis (Acute) Vomiting (Acute) Acute epigastric pain (Acute) Leg numbness (Acute) Rash (Acute) Upper abdominal pain (Acute) GERD with esophagitis (Acute) Anxiety (Chronic) extreme and crippling Medical History Presence of vena cava filter Acquired hypercoagulable state due to splenectomy Thrombocytosis after splenectomy History of pulmonary embolism Patient has a 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 Needs to remain on lifelong anti-caog Hereditary spherocytosis s/p splenectomy in 1991. Hyperbilirubinemia Biliary colic COVID-19 Essential hypertension DVT of axillary vein, acute bilateral [place]02[place]2019[place] [facility] [place], [place] ([place]02[place]2019[place] [facility] [place] [place] [place] [facility] [place] RECURRENT Tricuspid regurgitation 02[place]28/19 [facility] [place] MILD TO MOD PAH (pulmonary artery hypertension) 02/28/19 [facility] [place] Esophagitis determined by endoscopy (~05/2018) Esophageal foreign body (~05/2018) Bipolar disorder Surgical History S/P cholecystectomy 04/29/23 [facility] Surgical/Oncology. -hb H/O superior vena cava filter placement Abnormal findings on esophagogastroduodenoscopy (EGD) S/P partial thyroidectomy S/P IVC filter (~08/2019) [facility] [place] (~08/2019) [place] [facility] [place] S/P PENILE SHUNT (AL-GHORAB) H/O hernia repair Unspecified site, repaired x3 History of splenectomy Social History Smoking/Tobacco Use Status: Never Smoking risk assessment performed?: Yes Alcohol Intake: never Drug use: Never Substance use type: does not use Current gender identity: male Do you feel safe at home: Yes Do you feel safe in your relationship?: Yes Exam Const General: cooperative, healthy appearing, comfortable and no acute distress Orientation: alert, awake and oriented x3 HENMT Head: normal to inspection, normocephalic and atraumatic Mouth: moist mucous membranes Eyes Conjunctivae: conjunctivae normal Neck Neck: normal visual inspection, full ROM, trachea midline and supple Chest Chest: normal inspection of the chest and normal palpation of entire chest wall Resp Effort & Inspection: normal respiratory effort and able to speak in complete sentences Auscultation: clear to auscultation bilaterally Cardio Rate: regular rate Rhythm: regular rhythm GI Inspection: normal to inspection Palpation: soft and nontender Back/Spine/Pelvis Back: no CVA tenderness and No back tenderness Skin General skin exam: no rashes or lesions noted Neuro General: patient alert, patient awake, moves all extremities and no focal motor deficits Cognition: normal cognition Speech: other (Very soft-spoken) Sensory Exam: no sensory deficits noted Extrem General: normal to inspection, full ROM, capillary refill normal, no pedal edema and no calf tenderness Psych Appearance: grossly normal Mental Status: mental status grossly normal Course Vital Signs Vital signs: Vital Signs Temperature 37.1 C 07/09/23 12:44 Pulse 98 H 07/09/23 12:44 Respiratory Rate 22 07/09/23 12:44 Blood Pressure 156/74 H 07/09/23 12:44 Pulse Oximetry 98 07/09/23 12:44 Temperature 37.1 C 07/09/23 12:44 Temperature Source Temporal Artery Scan 07/09/23 12:44 Pulse 98 H 07/09/23 12:44 Respiratory Rate 26 H 07/09/23 13:16 Respiratory Effort Normal, Non-Labored 07/09/23 13:16 Respiratory Depth Normal 07/09/23 13:16 Respiratory Pattern Normal 07/09/23 13:16 Blood Pressure 156/74 H 07/09/23 12:44 Pulse Oximetry 98 07/09/23 12:44 Oxygen Delivery Method Room Air 07/09/23 12:44 Oxygen Flow Rate 0 07/09/23 12:44 Lab/Test Results Lab/Test Results: Laboratory Tests Range/Units 07/09/23 13:08 WBC (4.4-10.8) 10^3/uL 13.20 H RBC (4.36-5.78) 10^6/uL 4.93 Hgb (13.5-17.5) g/dL 15.5 Hct (40.0-50.0) % 45.0 MCV (80-95) fL 91 MCH (27.0-33.0) pg 31.4 MCHC (32.0-36.0) % 34.4 RDW (11.8-14.1) % 13.9 Plt Count (130-400) 10^3/uL 507 H MPV (8.0-11.0) fL 9.5 Immature Gran % See Differential Neutrophils % 35.0 Lymphocytes % 48.0 Atypical Lymphs % 4 Monocytes % 8.0 Eosinophils % 3.0 Basophils % 1.0 Nucleated RBC % (0.0-0.3) % 0.0 Absolute Neutrophils (1.2-6.7) 10^3/uL 4.62 Absolute Lymphocytes (1.2-3.4) 10^3/uL 6.86 H Absolute Monocytes (0.1-0.8) 10^3/uL 1.06 H Absolute Eosinophils (0.0-0.7) 10^3/uL 0.40 Absolute Basophils (0.0-0.2) 10^3/uL 0.13 RBC Morphology Normal D-Dimer (<500) ng/mlFEU 328 Sodium (136-145) mmol/L 139 Potassium (3.5-5.1) mmol/L 3.6 Chloride (98-107) mmol/L 102 Carbon Dioxide (21.0-32.0) mmol/L 29.4 Anion Gap (3-11) mmol/L 7.6 BUN (7-18) mg/dL 22 H Creatinine (0.70-1.30) mg/dL 1.0 Est GFR (CKD-EPI 2020) (mL/min/1.73m2) 98.80 Glucose (74-106) mg/dL 144 H Calcium (8.5-10.1) mg/dL 9.3 Magnesium (1.8-2.4) mg/dL 2.2 Total Bilirubin (0.2-1.0) mg/dL 0.8 AST (15-37) U/L 39 H ALT (16-63) U/L 43 Alkaline Phosphatase (46-116) U/L 71 Troponin I (< or =60) ng/L < 50 Total Protein (6.4-8.2) g/dL 7.5 Albumin (3.4-5.0) g/dL 3.7 Medical Decision Making This is a 37-year-old gentleman with a complicated past medical history, IVC filter, anticoagulated, pulmonary artery hypertension, tricuspid regurgitation, hypertension, acquired hypercoagulable state, status post cholecystectomy on 04/29/2023, most recently rediagnosed with new PEs on 05/04/2023 presenting to the ER for a left-sided chest pain worse with deep inspiration that began about an hour prior to arrival. He denies any recent illness or trauma. He states the pain is constant. Plan to initiate IV access and obtain a cardiac workup including a D-dimer. While the patient is high risk he does not present with tachycardia, hypoxia, hemoptysis, unilateral leg swelling, etc. He has an IVC filter in his actively anticoagulated. EKG and chest x-ray initially reassuring. Laboratory values reveal mild nonspecific leukocytosis of 13.20 platelet count of 507, normal D-dimer of 328, electrolytes unremarkable, creatinine 1.0 with a GFR of 98.80. Glucose 144. Initial troponin was less than 50. COVID, flu, RSV negative. Discussed initial workup in length with patient. He admits to continued left-sided chest pain but no radiation down the arm. He denies shortness of breath. No hypoxia. Plan to provide IV Tylenol for his discomfort, will avoid Toradol given his anticoagulation. Will also provide 1 mg IV Ativan for his anxiety. Delta troponin to be drawn at 1600. Patient care signed out to my colleague JORGE Finley at 1600 pending delta troponin, reevaluation, and final disposition. Medical Records Medical records reviewed: Yes I reviewed the patient's medical records. Imaging Data Radiologic Study: Attestation: I personally reviewed and interpreted this imaging study as follows: Imaging: X-Ray Radiologist's impression: No acute pulmonary findings Lab Data Lab results reviewed: Yes I reviewed the patient's lab results. Labs: Laboratory Tests Range/Units 07/09/23 07/09/23 13:08 14:16 WBC (4.4-10.8) 10^3/uL 13.20 H RBC (4.36-5.78) 10^6/uL 4.93 Hgb (13.5-17.5) g/dL 15.5 Hct (40.0-50.0) % 45.0 MCV (80-95) fL 91 MCH (27.0-33.0) pg 31.4 MCHC (32.0-36.0) % 34.4 RDW (11.8-14.1) % 13.9 Plt Count (130-400) 10^3/uL 507 H MPV (8.0-11.0) fL 9.5 Immature Gran % See Differential Neutrophils % 35.0 Lymphocytes % 48.0 Atypical Lymphs % 4 Monocytes % 8.0 Eosinophils % 3.0 Basophils % 1.0 Nucleated RBC % (0.0-0.3) % 0.0 Absolute Neutrophils (1.2-6.7) 10^3/uL 4.62 Absolute Lymphocytes (1.2-3.4) 10^3/uL 6.86 H Absolute Monocytes (0.1-0.8) 10^3/uL 1.06 H Absolute Eosinophils (0.0-0.7) 10^3/uL 0.40 Absolute Basophils (0.0-0.2) 10^3/uL 0.13 RBC Morphology Normal D-Dimer (<500) ng/mlFEU 328 Sodium (136-145) mmol/L 139 Potassium (3.5-5.1) mmol/L 3.6 Chloride (98-107) mmol/L 102 Carbon Dioxide (21.0-32.0) mmol/L 29.4 Anion Gap (3-11) mmol/L 7.6 BUN (7-18) mg/dL 22 H Creatinine (0.70-1.30) mg/dL 1.0 Est GFR (CKD-EPI 2020) (mL/min/1.73m2) 98.80 Glucose (74-106) mg/dL 144 H Calcium (8.5-10.1) mg/dL 9.3 Magnesium (1.8-2.4) mg/dL 2.2 Total Bilirubin (0.2-1.0) mg/dL 0.8 AST (15-37) U/L 39 H ALT (16-63) U/L 43 Alkaline Phosphatase (46-116) U/L 71 Troponin I (< or =60) ng/L < 50 Total Protein (6.4-8.2) g/dL 7.5 Albumin (3.4-5.0) g/dL 3.7 COVID-19 Source Nasopharynx SARS-CoV-2 (PCR) (Negative) Negative Influenza Type A (PCR) (Negative) Negative Influenza Type B (PCR) (Negative) Negative RSV (PCR) (Negative) Negative ECG Data Attestation: I personally reviewed and interpreted this ECG (s) as follows: Interpretation: Please review the official report by Dr. Hughes. Sinus rhythm, ventricular to 74. No STEMI. No significant change from 05/04/2023 Quality:[facility] Health Related Social Needs: No Data to Display Sign Out Sign Out Data: Sign Out Comment: Patient with IVC filter, anticoagulated, history of PEs, presents for left-sided chest pain which radiated down his left arm about 1 hour prior to arrival. Workup thus far has been benign. Patient received IV Tylenol and Ativan. Awaiting delta troponin to be drawn at approximately 1600, reassessment, and final disposition. Last updated by Salo Villa PA at 07/09/23 15:58 Discharge Plan Discharge Details Chief Complaint: Chest Pain Clinical Impression: Chest pain Primary Care Provider: José Miguel Flores ED Provider: Salo Villa Home Meds and New Rx's Prescriptions: No Action epinephrine [EpiPen 2-Farrukh] 0.3 mg/0.3 mL auto-injector 0.3 mg IM ONCE Qty: 2 0RF Rx Instructions: as a single dose sertraline 100 mg tablet 200 mg PO DAILY Qty: 180 3RF Rx Instructions: dose increase 06/02/23 doxepin 10 mg capsule 10 mg PO BID Qty: 60 1RF pantoprazole 40 mg tablet,delayed release (DR/EC) 40 mg PO BID Qty: 180 3RF cyclobenzaprine 10 mg tablet 10 mg PO TID PRN (Reason: muscle spasm) Qty: 20 1RF acetaminophen [Tylenol Extra Strength] 500 mg tablet 1,000 mg PO TID PRN (Reason: pain/fever) Qty: 270 4RF risperidone [Risperdal] 0.5 mg tablet 0.5 mg PO BID Qty: 60 11RF apixaban 5 mg tablet 5 mg PO BID Qty: 180 3RF clonazepam 1 mg tablet 1 mg PO BID PRN (Reason: anxiety) Qty: 60 5RF famotidine 20 mg tablet 20 mg PO BID Qty: 90 3RF
[2023-07-09 15:02] LABS: COVID-19 PCR Negative (Negative); Influenza A PCR Negative (Negative); Influenza B PCR Negative (Negative); RSV PCR Negative (Negative)
[2023-07-09 15:03] LABS: Source Nasopharynx
[2023-07-09] MEDS: LORazepam 2 MG/ML VIAL 1 MG IVP (15:26)
[2023-07-09] MEDS: ACETAMINOPHEN 1,000 MG/100 ML BTL 400 MG IVPB (15:27)
[2023-07-09 16:57] LABS: Troponin I < 50 ng/L (< or =60)
--- NOTE | 2023-07-09 17:15 | DI.CT_ITS ---
Exam(s) CT CHEST PE CTA EXAM: CT CHEST PE CTA CLINICAL HISTORY: hypoxia, chest pain. TECHNIQUE: Imaging Protocol: CT angiography of the chest was performed using pulmonary embolus sara col. Multi planar reconstructions were performed. CONTRAST MATERIAL: Intravenous: Omnipaque 350 Contrast volume: 100 cc COMPARISON: CT CT CHEST PE ABD PELVIS W from 05/04/2023 FINDINGS: CHEST: PULMONARY ARTERIES: There are presently no obvious intraluminal filling defects to suggest acute pulm onary emboli. LUNGS: There are mild subpleural increased markings in the right lower lobe, more so than previous. Lesser amount of the same noted in the posterior basal segment of the left lower lobe. No large infi ltrates and no pleural effusions. No ominous pulmonary nodules. No significant focal findings in th e trachea and mainstem bronchi.. MEDIASTINUM: There is no hilar nor mediastinal adenopathy. CARDIAC: Heart size is upper normal. There is no pericardial effusion.Caliber of the thoracic aorta is within normal limits. There is no evidence of aortic dissection. There is no significant shift of the interventricular septum. PARTIALLY VISUALIZED UPPERMOST ABDOMEN: IVC filter noted, only partially included in the field of vie w of this chest study. No adrenal masses. OSSEOUS: No significant osseous lesions.No fractures.. IMPRESSION: 1. No evidence of acute pulmonary emboli. No evidence of pulmonary infarction. 2. Mild subpleural infiltrate in the posterior basal segments of both lower lobes, slightly more so o n the right side. No associated pleural effusions nor intrathoracic adenopathy. 3. No evidence of aortic dissection nor pericardial effusion. No evidence of right heart strain. IVC filter noted Called by myself to ER provider RADIATION DOSE DELIVERED: 531.43mGy.cm Total DLP DATA REPOSITORY: All CT scans at this facility are submitted to the National Radiology Data Registry (NRDR) Dose Index Registry (DIR) with the [employer] ([employer]). RADIATION OPTIMIZATION: All CT scans at this facility use at least one of these dose optimization te chniques: automated exposure control; mA and/or kV adjustment per patient size (includes targeted exa ms where dose is matched to clinical indication); or iterative reconstruction.
[2023-07-09] MEDS: Omnipaque 350 MG/ML 100 ML BTL IJ (17:43)
[2023-07-09] MEDS: Normal Saline - Diluent 50 ML VIAL IJ (17:44)
[2023-07-09] MEDS: Doxycycline Hyclate 100 MG, 2 CAPS/BTL PO (19:03)
[2023-07-09] MEDS: predniSONE 20 MG TAB 40 MG PO (19:05)
== END 2023-07-09 19:06 | disposition home or self-care (01) ==
PROVIDERS: Emergency Medicine Emergency Medical Services; Physician Assistant; Emergency Provider Physician Assistant; PCP Family Medicine
DX: J18.9 Pneumonia, unspecified organism (principal); I11.0 Hypertensive heart disease with heart failure; Z86.711 Personal history of pulmonary embolism; Z86.718 Personal history of other venous thrombosis and embolism; Z79.01 Long term (current) use of anticoagulants; Z11.52 Encounter for screening for COVID-19
CPT/HCPCS: 71275; 80053; 87637; 93005; 96374; 96375; 99285; 71045; 83735; 84484; 85025; 85379; 93010; 99284; J0131; J2060; J3490; J7512

== ENCOUNTER 2023-11-03 16:11 | Emergency (ER) | payer OTHER, MEDICAID, SELFPAY ==
[2023-11-03 16:15] VITALS: BP 131/62; PULSE 70; RESP 16; TEMP 36.6; O2SAT 96
--- NOTE | 2023-11-03 16:30 | DI.RAD_ITS ---
Exam(s) XR ELBOW LT COMPLETE EXAM: XR ELBOW LT COMPLETE CLINICAL HISTORY: Redness, pain. TECHNIQUE: 2D digital imaging was performed of the left elbow. Three images were obtained. AP, lat eral and oblique views were obtained. COMPARISON: No exams were available for comparison FINDINGS: BONES: No acute fracture is present. No bony destructive lesion is seen. JOINTS: The elbow is normally aligned. No joint effusion is seen. SOFT TISSUE: Normal. IMPRESSION: No acute fracture or dislocation. DATA REPOSITORY: RADIATION DOSE DELIVERED:
--- NOTE | 2023-11-03 16:32 | ED.GENADUL_ITS ---
Discharge Plan Disposition Patient Disposition: Home Condition: Stable Discharge Details Clinical Impression: Localized swelling of left upper extremity Primary Care Provider: José Miguel Flores ED Provider: Amanda Diego Home Meds and New Rx's Prescriptions: Continued epinephrine [EpiPen 2-Farrukh] 0.3 mg/0.3 mL auto-injector 0.3 mg IM ONCE Qty: 2 0RF Rx Instructions: as a single dose sertraline 100 mg tablet 200 mg PO DAILY Qty: 180 3RF Rx Instructions: dose increase 06/02/23 pantoprazole 40 mg tablet,delayed release (DR/EC) 40 mg PO BID Qty: 180 3RF acetaminophen [Tylenol Extra Strength] 500 mg tablet 1,000 mg PO TID PRN (Reason: pain/fever) Qty: 270 4RF risperidone [Risperdal] 0.5 mg tablet 0.5 mg PO BID Qty: 60 11RF apixaban 5 mg tablet 5 mg PO BID Qty: 180 3RF clonazepam 1 mg tablet 1 mg PO BID PRN (Reason: anxiety) Qty: 60 5RF doxepin 10 mg capsule 10 mg PO BID Qty: 60 2RF cyclobenzaprine 10 mg tablet 10 mg PO TID PRN (Reason: muscle spasm) Qty: 20 1RF famotidine 20 mg tablet 20 mg PO BID Qty: 180 3RF doxycycline hyclate 100 mg capsule 100 mg PO BID Qty: 20 0RF prednisone 20 mg tablet 40 mg PO ONCE Qty: 8 0RF Discharge Instructions Instructions: Arm Pain (ED) Additional Instructions: Please call the radiology department to schedule a ultrasound within the next 1- 2 days. Report back to the ER for the results. Please take Tylenol or Ibuprofen with food every 4-6 hours as needed for pain and swelling. Follow up with primary care provider in 3-5 days. Return to ED sooner if any worsening or concerns. X-rays within normal limits. Do not rub the area or excessively use the arm until after the ultrasound results. Referrals: José Miguel Flores MD [Primary Care Provider] - 3 days Discharge Data Discharge Date/Time-TO BE ENTERED AT DEPARTURE: 11/03/23 17:30 HPI General Mode of arrival: ambulatory . Date/Time Provider Initiated Documentation: 11/03/23 16:12 . Limitations to Documentation: no limitations . Information obtained by: patient, RN notes reviewed and old records reviewed . HPI Narrative: 37 year old male presents to the ER with chief complaint of left antecubital erythema and pain which he reports has been ongoing for the last month noticed redness yesterday. Denies any new injuries or heavy lifting or feeling a pop or any other associated symptoms. Patient does have a history of a hypercoagulable state and does have a history of IVC filter. Also history of PE,, pulmonary artery hypertension and tricuspid regurgitation esophagitis and bipolar. On exam no obvious break in the skin or wounds. He does have full range of motion with some pain. Related Data Home Medications Medication Instructions Recorded Confirmed pantoprazole 40 mg tablet,delayed 40 mg PO BID #180 tabs 12/24/22 11/03/23 release acetaminophen 500 mg tablet 1,000 mg (2 x 500 mg) PO TID PRN 03/09/23 11/03/23 (Tylenol Extra Strength) pain/fever #270 tabs risperidone 0.5 mg tablet 0.5 mg PO BID #60 tabs 04/12/23 11/03/23 (Risperdal) apixaban 5 mg tablet 5 mg PO BID pulmonary embolism 05/31/23 11/03/23 #180 tabs epinephrine 0.3 mg/0.3 mL 0.3 mg (0.3 mL) IM ONCE #2 ea 06/02/23 11/03/23 injection, auto-injector (EpiPen 2-Farrukh) sertraline 100 mg tablet 200 mg (2 x 100 mg) PO DAILY #180 06/02/23 11/03/23 tabs clonazepam 1 mg tablet 1 mg PO BID PRN anxiety #60 tabs 06/30/23 11/03/23 doxycycline hyclate 100 mg capsule 100 mg PO BID #20 caps 07/09/23 11/03/23 prednisone 20 mg tablet 40 mg (2 x 20 mg) PO ONCE #8 tabs 07/09/23 11/03/23 doxepin 10 mg capsule 10 mg PO BID itching #60 caps 08/30/23 11/03/23 cyclobenzaprine 10 mg tablet 10 mg PO TID PRN muscle spasm #20 10/04/23 11/03/23 tabs famotidine 20 mg tablet 20 mg PO BID #180 tabs 11/01/23 11/03/23 Previous Rx's Medication Instructions Recorded pantoprazole 40 mg tablet,delayed 40 mg PO BID #180 tabs 12/24/22 release acetaminophen 500 mg tablet 1,000 mg (2 x 500 mg) PO TID PRN 03/09/23 (Tylenol Extra Strength) pain/fever #270 tabs risperidone 0.5 mg tablet 0.5 mg PO BID #60 tabs 04/12/23 (Risperdal) apixaban 5 mg tablet 5 mg PO BID pulmonary embolism 05/31/23 #180 tabs epinephrine 0.3 mg/0.3 mL 0.3 mg (0.3 mL) IM ONCE #2 ea 06/02/23 injection, auto-injector (EpiPen 2-Farrukh) sertraline 100 mg tablet 200 mg (2 x 100 mg) PO DAILY #180 06/02/23 tabs clonazepam 1 mg tablet 1 mg PO BID PRN anxiety #60 tabs 06/30/23 doxycycline hyclate 100 mg capsule 100 mg PO BID #20 caps 07/09/23 prednisone 20 mg tablet 40 mg (2 x 20 mg) PO ONCE #8 tabs 07/09/23 doxepin 10 mg capsule 10 mg PO BID itching #60 caps 08/30/23 cyclobenzaprine 10 mg tablet 10 mg PO TID PRN muscle spasm #20 10/04/23 tabs famotidine 20 mg tablet 20 mg PO BID #180 tabs 11/01/23 Allergies Allergy/AdvReac Type Severity Reaction Status Date / Time cat's claw Allergy Unknown Skin Rash Verified 11/03/23 16:19 neomycin Allergy Unknown Skin Rash Verified 11/03/23 16:19 [From Neosporin ([id number])] polymyxin B Allergy Unknown Skin Rash Verified 11/03/23 16:19 [From Neosporin ([id number])] bacitracin Allergy Skin Rash Verified 11/03/23 16:19 dog dander Allergy Skin Rash Verified 11/03/23 16:19 beer Allergy Severe Anaphylaxsi Uncoded 11/03/23 16:19 s General Stated Complaint: Orthopedic CONSTANCE: 4 Review of Systems All systems reviewed & are unremarkable except as noted in HPI and below Integumentary/Breasts Skin/Breast: Reports as per HPI, Reports change in pigmentation, Reports skin pain and Reports skin swelling Exam Resp Effort & Inspection: normal respiratory effort Auscultation: clear to auscultation bilaterally Cardio Rate: regular rate Rhythm: regular rhythm Heart Sounds: S1 normal and S2 normal Extrem Left upper extremity: elbow/forearm (small amount of erythem noted to the AC space) Details: tenderness and swelling Course Vital Signs Vital signs: Vital Signs Temperature 36.6 C 11/03/23 16:15 Pulse 70 11/03/23 16:15 Respiratory Rate 16 11/03/23 16:15 Blood Pressure 131/62 11/03/23 16:15 Pulse Oximetry 96 11/03/23 16:15 Temperature 36.6 C 11/03/23 16:15 Pulse 70 11/03/23 16:15 Respiratory Rate 16 11/03/23 16:15 Respiratory Effort Normal 11/03/23 16:19 Blood Pressure 131/62 11/03/23 16:15 Pulse Oximetry 96 11/03/23 16:15 Oxygen Delivery Method Room Air 11/03/23 16:15 Oxygen Flow Rate 0 11/03/23 16:15 Pain Level 6 11/03/23 16:15 Medical Decision Making 37 year old male presents to the ER with chief complaint of left antecubital erythema and pain which he reports has been ongoing for the last month noticed redness yesterday. Denies any new injuries or heavy lifting or feeling a pop or any other associated symptoms. Patient does have a history of a hypercoagulable state and does have a history of IVC filter. Also history of PE,, pulmonary artery hypertension and tricuspid regurgitation esophagitis and bipolar. On exam no obvious break in the skin or wounds. He does have full range of motion with some pain. Differential diagnosis includes but not limited to underlying injury, occult fracture, DVT, cellulitis, other rash. XR ordered, also venous ultrasound, however staff is no longer in house. Will order an outpatient Upper extremity venous doppler for tomorrow. XR WNL. This text was generated using [employer] dictation system, please disregard any oddities of phrase or misspellings. 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 (Chronic) 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) Elevated serum protein level (Acute) Chest pain (Acute) Hand pain, right (Acute) Pain, rectal (Acute) Abdominal pain (Acute) Left-sided thoracic back pain (Acute) Cholelithiasis (Acute) Vomiting (Acute) Acute epigastric pain (Acute) Leg numbness (Acute) Rash (Acute) Upper abdominal pain (Acute) GERD with esophagitis (Acute) Anxiety (Chronic) extreme and crippling Medical History Presence of vena cava filter Acquired hypercoagulable state due to splenectomy Thrombocytosis after splenectomy History of pulmonary embolism Patient has a 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 Needs to remain on lifelong anti-caog Hereditary spherocytosis s/p splenectomy in 1991. Hyperbilirubinemia Biliary colic COVID-19 Essential hypertension DVT of axillary vein, acute bilateral (~02/2019) [facility] [place] Pulmonary embolism, bilateral (~02/2019) [facility] [place] PE Dr. Flores [facility] [place] 08/2019; RECURRENT Tricuspid regurgitation 02/28/19 [facility] [place] ECHO; MILD TO MOD PAH (pulmonary artery hypertension) 02/28/19 [facility] [place] ECHO (MILD) Esophagitis determined by endoscopy (~05/2018) Esophageal foreign body (~05/2018) Bipolar disorder Surgical History S/P cholecystectomy 04/29/23 [facility] Surgical/Oncology. -hb H/O superior vena cava filter placement Abnormal findings on esophagogastroduodenoscopy (EGD) S/P partial thyroidectomy S/P IVC filter (~08/2019) [facility] [place] Priapism (~08/2019) 09/11/19 [facility] [place]; S/P PENILE SHUNT (AL-GHORAB) H/O hernia repair Unspecified site, repaired x3 History of splenectomy Social History Smoking/Tobacco Use Status: Never Smoking risk assessment performed?: Yes Alcohol Intake: never Drug use: Never Substance use type: does not use Current gender identity: male Do you feel safe at home: Yes Do you feel safe in your relationship?: Yes
== END 2023-11-03 17:30 | disposition home or self-care (01) ==
PROVIDERS: Emergency Provider Registered Nurse Emergency; PCP Family Medicine
DX: R22.32 Localized swelling, mass and lump, left upper limb (principal); I27.20 Pulmonary hypertension, unspecified; I07.1 Rheumatic tricuspid insufficiency; Z86.711 Personal history of pulmonary embolism; Z86.718 Personal history of other venous thrombosis and embolism; Z79.01 Long term (current) use of anticoagulants
CPT/HCPCS: 99283; 73080

== ENCOUNTER 2023-11-04 12:26 | Emergency (ER) | payer OTHER, MEDICAID, SELFPAY ==
[2023-11-04 12:32] VITALS: BP 132/47; PULSE 57; RESP 16; TEMP 36.9; O2SAT 97
--- NOTE | 2023-11-04 12:52 | W.ED.GENAD ---
Discharge Plan Disposition Patient Disposition: Home Condition: Stable Discharge Details Clinical Impression: Left arm swelling Primary Care Provider: José Miguel Flores ED Provider: Dewayne Felix Home Meds and New Rx's Prescriptions: Continued epinephrine [EpiPen 2-Farrukh] 0.3 mg/0.3 mL auto-injector 0.3 mg IM ONCE Qty: 2 0RF Rx Instructions: as a single dose sertraline 100 mg tablet 200 mg PO DAILY Qty: 180 3RF Rx Instructions: dose increase 06/02/23 pantoprazole 40 mg tablet,delayed release (DR/EC) 40 mg PO BID Qty: 180 3RF acetaminophen [Tylenol Extra Strength] 500 mg tablet 1,000 mg PO TID PRN (Reason: pain/fever) Qty: 270 4RF risperidone [Risperdal] 0.5 mg tablet 0.5 mg PO BID Qty: 60 11RF apixaban 5 mg tablet 5 mg PO BID Qty: 180 3RF clonazepam 1 mg tablet 1 mg PO BID PRN (Reason: anxiety) Qty: 60 5RF doxepin 10 mg capsule 10 mg PO BID Qty: 60 2RF cyclobenzaprine 10 mg tablet 10 mg PO TID PRN (Reason: muscle spasm) Qty: 20 1RF famotidine 20 mg tablet 20 mg PO BID Qty: 180 3RF Discharge Instructions Additional Instructions: Your ultrasound did not show any concerning findings at this time Follow-up with your primary care provider within 1 to 2 weeks If you feel more ill or have new symptoms such as difficulty breathing return to the emergency department for reevaluation HPI General Mode of arrival: ambulatory. Date/Time Provider Initiated Documentation: 11/04/23 12:28. Limitations to Documentation: no limitations. Information obtained by: patient. History of Present Illness 37 year old M presents to the emergency department with the chief complaint of Follow-up on ultrasound results, Patient started experiencing this week(s) (1) and it has been constant. No relieving factors improve symptom(s), No exacerbating factors reported . Patient notes no other symptoms.. Patient did receive the following treatments prior to arrival, none Related Data Home Medications Medication Instructions Recorded Confirmed pantoprazole 40 mg tablet,delayed 40 mg PO BID #180 tabs 12/24/22 11/04/23 release acetaminophen 500 mg tablet 1,000 mg (2 x 500 mg) PO TID PRN 03/09/23 11/04/23 (Tylenol Extra Strength) pain/fever #270 tabs risperidone 0.5 mg tablet 0.5 mg PO BID #60 tabs 04/12/23 11/04/23 (Risperdal) apixaban 5 mg tablet 5 mg PO BID pulmonary embolism 05/31/23 11/04/23 #180 tabs epinephrine 0.3 mg/0.3 mL 0.3 mg (0.3 mL) IM ONCE #2 ea 06/02/23 11/04/23 injection, auto-injector (EpiPen 2-Farrukh) sertraline 100 mg tablet 200 mg (2 x 100 mg) PO DAILY #180 06/02/23 11/04/23 tabs clonazepam 1 mg tablet 1 mg PO BID PRN anxiety #60 tabs 06/30/23 11/04/23 doxepin 10 mg capsule 10 mg PO BID itching #60 caps 08/30/23 11/04/23 cyclobenzaprine 10 mg tablet 10 mg PO TID PRN muscle spasm #20 10/04/23 11/04/23 tabs famotidine 20 mg tablet 20 mg PO BID #180 tabs 11/01/23 11/04/23 Previous Rx's Medication Instructions Recorded pantoprazole 40 mg tablet,delayed 40 mg PO BID #180 tabs 12/24/22 release acetaminophen 500 mg tablet 1,000 mg (2 x 500 mg) PO TID PRN 03/09/23 (Tylenol Extra Strength) pain/fever #270 tabs risperidone 0.5 mg tablet 0.5 mg PO BID #60 tabs 04/12/23 (Risperdal) apixaban 5 mg tablet 5 mg PO BID pulmonary embolism 05/31/23 #180 tabs epinephrine 0.3 mg/0.3 mL 0.3 mg (0.3 mL) IM ONCE #2 ea 06/02/23 injection, auto-injector (EpiPen 2-Farrukh) sertraline 100 mg tablet 200 mg (2 x 100 mg) PO DAILY #180 06/02/23 tabs clonazepam 1 mg tablet 1 mg PO BID PRN anxiety #60 tabs 06/30/23 doxepin 10 mg capsule 10 mg PO BID itching #60 caps 08/30/23 cyclobenzaprine 10 mg tablet 10 mg PO TID PRN muscle spasm #20 10/04/23 tabs famotidine 20 mg tablet 20 mg PO BID #180 tabs 11/01/23 Allergies Allergy/AdvReac Type Severity Reaction Status Date / Time cat's claw Allergy Unknown Skin Rash Verified 11/04/23 12:31 neomycin Allergy Unknown Skin Rash Verified 11/04/23 12:31 [From Neosporin ([id number])] polymyxin B Allergy Unknown Skin Rash Verified 11/04/23 12:31 [From Neosporin ([id number])] bacitracin Allergy Skin Rash Verified 11/04/23 12:31 dog dander Allergy Skin Rash Verified 11/04/23 12:31 beer Allergy Severe Anaphylaxsi Uncoded 11/04/23 12:31 s General Stated Complaint: Recheck CONSTANCE: 5 Review of Systems All systems reviewed & are unremarkable except as noted in HPI and below Constitutional Constitutional: Denies chills, Denies fever(s) and Denies weakness Cardiovascular Cardiovascular: Denies chest pain and Denies dyspnea Respiratory Respiratory: Denies cough and Denies dyspnea Gastrointestinal Gastrointestinal: Denies abdominal pain, Denies nausea and Denies vomiting Neurologic Neurologic: Denies weakness Psychiatric Psychiatric: Denies depression Exam Const General: no acute distress Orientation: alert HENOK Head: normal to inspection Ears: external ears normal General nose exam: external nose normal Mouth: moist mucous membranes Eyes General: appearance normal, both eyes and all related structures Neck Neck: normal visual inspection Resp Effort & Inspection: normal respiratory effort and able to speak in complete sentences Cardio Rate: regular rate Skin General skin exam: no rashes or lesions noted Neuro General: patient alert Extrem General: normal to inspection Psych Mental Status: mental status grossly normal Course Vital Signs Vital signs: Vital Signs Temperature 36.9 C 11/04/23 12:32 Pulse 57 L 11/04/23 12:32 Respiratory Rate 16 11/04/23 12:32 Blood Pressure 132/47 L 11/04/23 12:32 Pulse Oximetry 97 11/04/23 12:32 Temperature 36.9 C 11/04/23 12:32 Temperature Source Temporal Artery Scan 11/04/23 12:32 Pulse 57 L 11/04/23 12:32 Respiratory Rate 16 11/04/23 12:32 Respiratory Effort Normal, Non-Labored 11/04/23 12:34 Blood Pressure 132/47 L 11/04/23 12:32 Blood Pressure Position Sitting 11/04/23 12:32 Pulse Oximetry 97 11/04/23 12:32 Oxygen Delivery Method Room Air 11/04/23 12:32 Oxygen Flow Rate 0 11/04/23 12:32 Pain Level 10 11/04/23 12:44 Medical Decision Making 37-year-old male with a history of anxiety, who comes in with follow-up for ultrasound results. He had had some redness and irritation in his left AC, was seen in the ER and had an x-ray which was unremarkable limits set up to have an outpatient ultrasound done because they have ultrasound at that time. Patient states his redness has resolved and pain is improved. Ultrasound negative for DVT, his extremity is normal in appearance, has full range of motion, intact sensation and pulses. Suspect since his imaging is negative and has a normal exam he had some muscle strain has resolved. He is stable for discharge, advised follow-up with his PCP and return precautions given Differential Diagnosis Differential Diagnosis: Muscle strain, tendinitis Quality:SDOH Health Related Social Needs: No Data to Display PFSH All Active Problems (Updated 11/04/23 @ 12:55 by Dewayne Felix MD) Left arm swelling (Acute) Localized swelling of left upper extremity (Acute) Ulcer of buttock (Acute) Urinary frequency (Acute) [place] disease (Acute) Cholelithiasis without obstruction (Acute) Rt inguinal pain (Acute) Eye twitch (Acute) Cellulitis (Acute) Thyroid dysfunction (Acute) 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 due to disease classified elsewhere (Chronic) 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) Elevated serum protein level (Acute) Chest pain (Acute) Hand pain, right (Acute) Pain, rectal (Acute) Abdominal pain (Acute) Left-sided thoracic back pain (Acute) Cholelithiasis (Acute) Vomiting (Acute) Acute epigastric pain (Acute) Leg numbness (Acute) Rash (Acute) Upper abdominal pain (Acute) GERD with esophagitis (Acute) Anxiety (Chronic) extreme and crippling Medical History Presence of vena cava filter Acquired hypercoagulable state due to splenectomy Thrombocytosis after splenectomy History of pulmonary embolism Patient has a 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 Needs to remain on lifelong anti-caog Hereditary spherocytosis s/p splenectomy in 1991. Hyperbilirubinemia Biliary colic COVID-19 Essential hypertension DVT of axillary vein, acute bilateral (~02/2019) [facility] [place] Pulmonary embolism, bilateral (~02/2019) [facility] [place] PE Dr. Flores [facility] [place] 08/2019; RECURRENT Tricuspid regurgitation 02/28/19 [facility] [place] ECHO; MILD TO MOD PAH (pulmonary artery hypertension) 02/28/19 [facility] [place] ECHO (MILD) Esophagitis determined by endoscopy (~05/2018) Esophageal foreign body (~05/2018) Bipolar disorder Surgical History S/P cholecystectomy 04/29/23 [facility] Surgical/Oncology. -hb H/O superior vena cava filter placement Abnormal findings on esophagogastroduodenoscopy (EGD) S/P partial thyroidectomy S/P IVC filter (~08/2019) [facility] [place] Priapism (~08/2019) 09/11/19 [facility] [place]; S/P PENILE SHUNT (AL-[place]AB) H/O hernia repair Unspecified site, repaired x3 History of splenectomy Social History Smoking/Tobacco Use Status: Never Smoking risk assessment performed?: Yes Alcohol Intake: never Drug use: Never Substance use type: does not use Housing: house Current gender identity: male Do you feel safe at home: Yes Do you feel safe in your relationship?: Yes
== END 2023-11-04 13:10 | disposition home or self-care (01) ==
PROVIDERS: Emergency Provider Emergency Medicine; PCP Family Medicine
DX: M79.602 Pain in left arm (principal); R22.32 Localized swelling, mass and lump, left upper limb
CPT/HCPCS: 99281; 99282

== ENCOUNTER → 2023-11-04 13:25 | Outpatient (CLI) | payer OTHER, MEDICAID, SELFPAY ==
--- NOTE | 2023-11-04 | DI.US_ITS ---
Exam(s) US UPPER EXTREMITY VENOUS LT EXAM: US UPPER EXTREMITY VENOUS LT CLINICAL HISTORY: LEFT ANTECUBITAL SWELLING PAIN REDNESS. TECHNIQUE: Ultrasound examination of the left upper extremity venous system(s) is performed using gr ayscale, color-flow, and spectral Doppler analysis. COMPARISON: No exams were available for comparison FINDINGS: The left internal jugular, axillary, subclavian, brachial, radial, and ulnar veins are patent without evidence of thrombosis. The superficial basilic, cephalic and median cubital veins are patent. IMPRESSION: No left upper extremity DVT. DATA REPOSITORY:
== END ==
PROVIDERS: PCP Family Medicine; Visit Provider Registered Nurse Emergency
DX: M79.602 Pain in left arm (principal)
CPT/HCPCS: 93971

== ENCOUNTER 2023-12-01 19:21 | Emergency (ER) | payer OTHER, MEDICAID, SELFPAY ==
[2023-12-01] VITALS (71 sets, daily range): BP systolic 111–167; BP diastolic 44–63; PULSE 55–88; RESP 12–44; TEMP 35.7–36.6; O2SAT 89–98
--- NOTE | 2023-12-01 19:24 | ED.GENADUL_ITS ---
Discharge Plan Disposition Patient Disposition: Home Condition: Improving Discharge Details Clinical Impression: Hyponatremia, Acute anxiety, Hypokalemia Primary Care Provider: José Miguel Flores ED Provider: James Faria Home Meds and New Rx's Prescriptions: Continued epinephrine [EpiPen 2-Farrukh] 0.3 mg/0.3 mL auto-injector 0.3 mg IM ONCE Qty: 2 0RF Rx Instructions: as a single dose sertraline 100 mg tablet 200 mg PO DAILY Qty: 180 3RF Rx Instructions: dose increase 06/02/23 risperidone 1 mg tablet 1 mg PO BID Qty: 60 11RF loratadine 10 mg tablet 10 mg PO DAILY PRN (Reason: allergy symptoms) Qty: 30 3RF pantoprazole 40 mg tablet,delayed release (DR/EC) 40 mg PO BID Qty: 180 3RF acetaminophen [Tylenol Extra Strength] 500 mg tablet 1,000 mg PO TID PRN (Reason: pain/fever) Qty: 270 4RF apixaban 5 mg tablet 5 mg PO BID Qty: 180 3RF clonazepam 1 mg tablet 1 mg PO BID PRN (Reason: anxiety) Qty: 60 5RF doxepin 10 mg capsule 10 mg PO BID Qty: 60 2RF cyclobenzaprine 10 mg tablet 10 mg PO TID PRN (Reason: muscle spasm) Qty: 20 1RF famotidine 20 mg tablet 20 mg PO BID Qty: 180 3RF Discharge Instructions Instructions: Hyponatremia (ED), Hypokalemia (ED), Anxiety (ED) Additional Instructions: You were seen in the ED for shortness of breath and vomiting. You improved with fluids and lorazepam. CT imaging is reassuring with no acute pathology. You did have some laboratory abnormalities including a low sodium and low potassium which may be related to your increased water drinking. While it is important to drink plenty of fluids and stay hydrated it can be overdone. 10 to 12 cups of water or similar type fluid might be a reasonable goal. Discuss further with your primary care, follow-up in the next week. Return to the ED for any fever, shortness of breath, chest pain, abdominal pain, persistent vomiting, other concerns. HPI <Guille Saldaña MD - Last Filed: 12/01/23 23:50> General Mode of arrival: wheelchair . Date/Time Provider Initiated Documentation: 12/01/23 19:24 . Limitations to Documentation: other (anxiety) . Information obtained by: patient, RN notes reviewed and old records reviewed . HPI Narrative: Patient presents to the waiting room complaining of difficulty breathing, cough, vomiting onset rather suddenly over this afternoon. Very difficult to get a history out of. He appears pale and diaphoretic. He is reporting that he thinks he has car monoxide poisoning but only thinks this because he became ill while riding in his brother's car. He was not in any enclosed area. He was just seen earlier today by his primary care doctor for follow-up for anxiety. Reports some epigastric and lower chest burning. Denies any ingestion. Related Data Home Medications Medication Instructions Recorded Confirmed acetaminophen 500 mg tablet 1,000 mg (2 x 500 mg) PO TID PRN 03/09/23 12/01/23 (Tylenol Extra Strength) pain/fever #270 tabs apixaban 5 mg tablet 5 mg PO BID pulmonary embolism 05/31/23 12/01/23 #180 tabs epinephrine 0.3 mg/0.3 mL 0.3 mg (0.3 mL) IM ONCE #2 ea 06/02/23 12/01/23 injection, auto-injector (EpiPen 2-Farrukh) sertraline 100 mg tablet 200 mg (2 x 100 mg) PO DAILY #180 06/02/23 12/01/23 tabs clonazepam 1 mg tablet 1 mg PO BID PRN anxiety #60 tabs 06/30/23 12/01/23 doxepin 10 mg capsule 10 mg PO BID itching #60 caps 08/30/23 12/01/23 cyclobenzaprine 10 mg tablet 10 mg PO TID PRN muscle spasm #20 10/04/23 12/01/23 tabs famotidine 20 mg tablet 20 mg PO BID #180 tabs 11/01/23 12/01/23 loratadine 10 mg tablet 10 mg PO DAILY PRN allergy 12/01/23 12/01/23 symptoms #30 tabs pantoprazole 40 mg tablet,delayed 40 mg PO BID #180 tabs 12/01/23 12/01/23 release risperidone 1 mg tablet 1 mg PO BID #60 tabs 12/01/23 12/01/23 Previous Rx's Medication Instructions Recorded acetaminophen 500 mg tablet 1,000 mg (2 x 500 mg) PO TID PRN 03/09/23 (Tylenol Extra Strength) pain/fever #270 tabs apixaban 5 mg tablet 5 mg PO BID pulmonary embolism 05/31/23 #180 tabs epinephrine 0.3 mg/0.3 mL 0.3 mg (0.3 mL) IM ONCE #2 ea 06/02/23 injection, auto-injector (EpiPen 2-Farrukh) sertraline 100 mg tablet 200 mg (2 x 100 mg) PO DAILY #180 06/02/23 tabs clonazepam 1 mg tablet 1 mg PO BID PRN anxiety #60 tabs 06/30/23 doxepin 10 mg capsule 10 mg PO BID itching #60 caps 08/30/23 cyclobenzaprine 10 mg tablet 10 mg PO TID PRN muscle spasm #20 10/04/23 tabs famotidine 20 mg tablet 20 mg PO BID #180 tabs 11/01/23 loratadine 10 mg tablet 10 mg PO DAILY PRN allergy 12/01/23 symptoms #30 tabs pantoprazole 40 mg tablet,delayed 40 mg PO BID #180 tabs 12/01/23 release risperidone 1 mg tablet 1 mg PO BID #60 tabs 12/01/23 Allergies Allergy/AdvReac Type Severity Reaction Status Date / Time cat's claw Allergy Unknown Skin Rash Verified 12/01/23 13:31 neomycin Allergy Unknown Skin Rash Verified 12/01/23 13:31 [From Neosporin ([id number])] polymyxin B Allergy Unknown Skin Rash Verified 12/01/23 13:31 [From Neosporin ([id number])] bacitracin Allergy Skin Rash Verified 12/01/23 13:31 dog dander Allergy Skin Rash Verified 12/01/23 13:31 beer Allergy Severe Anaphylaxsi Uncoded 12/01/23 13:31 s General CONSTANCE: 5 Review of Systems <Guille Saldaña MD - Last Filed: 12/01/23 23:50> Unobtainable due to mental condition Exam <Guille Saldaña MD - Last Filed: 12/01/23 23:50> Narrative Exam Narrative: Const: WDWN male is shaking/diaphoretic. VS per triage. HEENT: NC/AT. Normal facial exam. Neck: Supple. Trachea midline. Lungs: Normal respiratory effort. Lungs are clear. Cor: RRR without murmur. Good radial pulses. GI: Soft/ND/NT. Neuro: A+O x 3. Cranial nerves II - XII grossly intact. No gross motor or sensory deficit. Ext: No C/C/E. Medical Decision Making <Guille Saldaña MD - Last Filed: 12/01/23 23:50> Patient presents to ED with diaphoresis, shaking all over, cough, shortness of breath, vomiting. Was just seen by primary care earlier today for anxiety which unfortunately this gentleman is crippling in nature. Primary care is trying to manage his anxiety. He does have history of splenectomy for hereditary spherocytosis. 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 Do not suspect carbon monoxide poisoning given his report and concerns. Driving around in a vehicle with a faulty muffler would not cause significant car monoxide poisoning. He was not in an enclosed area with the car running at any time. Do have to consider infection or sepsis given his presentation. Doubt recurrent PE. Likely overwhelming anxiety. He is afebrile. IV established and fluids started. IV Ativan given. Laboratory studies, EKG, imaging studies ordered. Patient's EKG is sinus rhythm with some nonspecific ST upsloping in the lateral precordial leads that is new compared to most recent. May be related to his hyperventilation or electrolytes, does not look ischemic. His initial lactic acid is 3. His initial venous blood gas showed a pCO2 of 35 consistent with hyperventilation. pH is actually normal. White count is elevated 15.9. His hemoglobin is normal. Chemistry significant for hyponatremia with a sodium 127, potassium very low at 2.6, chloride 91. Has a little anion gap at 13.6. Creatinine is normal. Liver function a little bit up including total bili which has been present before and is thought to be related to Gilbert's disease. Initial troponin negative. Patient is ordered for IV potassium replacement. Urinalysis negative. CT of the chest negative for PE, infiltrate, edema. CT of the abdomen pelvis with no acute pathology. At this point I am suspecting that this was a severe anxiety attack. I do not think he has an infectious process going on. His vital signs have normalized. He is not febrile. His elevated white count likely related to stress reaction. He also is now reporting significantly increased water intake because his PCP told him he needed to drink more water. Sounds like he may be overdoing it. At this point we will repeat a BMP, lactic acid, VBG, troponin. 23:00-patient's lactic acid is now normal. His pCO2 is now 39. Second troponin remains negative. Repeat BMP now has a sodium at 131 with normal chloride. Potassium only up to 2.7 after 20 mEq given IV. 40 of K-Dur also given. Will now give bag of normal saline with 20 of K over the next couple of hours. Will sign out to night physician pending anticipated discharge after fluids complete. Medical Records Medical records reviewed: Yes I reviewed the patient's medical records. Lab Data Lab results reviewed: Yes I reviewed the patient's lab results. ECG Data Attestation: I personally reviewed and interpreted this ECG (s) as follows: Prior ECG tracings: available for review Interpretation: see EKG <James Faria DO - Last Filed: 12/02/23 01:57> Patient presents to ED with diaphoresis, shaking all over, cough, shortness of breath, vomiting. Was just seen by primary care earlier today for anxiety which unfortunately this gentleman is crippling in nature. Primary care is trying to manage his anxiety. He does have history of splenectomy for hereditary spherocytosis. 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 Do not suspect carbon monoxide poisoning given his report and concerns. Driving around in a vehicle with a faulty muffler would not cause significant car monoxide poisoning. He was not in an enclosed area with the car running at any time. Do have to consider infection or sepsis given his presentation. Doubt recurrent PE. Likely overwhelming anxiety. He is afebrile. IV established and fluids started. IV Ativan given. Laboratory studies, EKG, imaging studies ordered. Patient's EKG is sinus rhythm with some nonspecific ST upsloping in the lateral precordial leads that is new compared to most recent. May be related to his hyperventilation or electrolytes, does not look ischemic. His initial lactic acid is 3. His initial venous blood gas showed a pCO2 of 35 consistent with hyperventilation. pH is actually normal. White count is elevated 15.9. His hemoglobin is normal. Chemistry significant for hyponatremia with a sodium 127, potassium very low at 2.6, chloride 91. Has a little anion gap at 13.6. Creatinine is normal. Liver function a little bit up including total bili which has been present before and is thought to be related to Gilbert's disease. Initial troponin negative. Patient is ordered for IV potassium replacement. Urinalysis negative. CT of the chest negative for PE, infiltrate, edema. CT of the abdomen pelvis with no acute pathology. At this point I am suspecting that this was a severe anxiety attack. I do not think he has an infectious process going on. His vital signs have normalized. He is not febrile. His elevated white count likely related to stress reaction. He also is now reporting significantly increased water intake because his PCP told him he needed to drink more water. Sounds like he may be overdoing it. At this point we will repeat a BMP, lactic acid, VBG, troponin. 23:00-patient's lactic acid is now normal. His pCO2 is now 39. Second troponin remains negative. Repeat BMP now has a sodium at 131 with normal chloride. Potassium only up to 2.7 after 20 mEq given IV. 40 of K-Dur also given. Will now give bag of normal saline with 20 of K over the next couple of hours. Will sign out to night physician pending anticipated discharge after fluids complete. Dr. Faria's documentation Patient's infusion completed. Patient is hemodynamically stable reassessed and stable for discharge. I have extensively reviewed the treatment plan and discharge instructions with the patient. I have addressed all patient concerns at this time. The patient was made aware of what symptoms to monitor for that would warrant a return to the emergency department. Discussed the plan with the patient, they demonstrate verbal understanding and agreement with our assessment and plan at this time. The documentation in this chart was dictated using [employer] dictation software. Please excuse any dictation errors. [facility] <Guille Saldaña MD - Last Filed: 12/01/23 23:50> All Active Problems (Updated 12/01/23 @ 23:05 by Guille Saldaña MD) Hypokalemia (Acute) Acute anxiety (Acute) Hyponatremia (Acute) Paresthesia and pain of left extremity (Acute) Coccyx disorder (Acute) Left arm swelling (Acute) Localized swelling of left upper extremity (Acute) Ulcer of buttock (Acute) Urinary frequency (Acute) Poyntelle disease (Acute) Cholelithiasis without obstruction (Acute) Rt inguinal pain (Acute) Eye twitch (Acute) Cellulitis (Acute) Thyroid dysfunction (Acute) 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 Hyperbilirubinemia Biliary colic Essential hypertension DVT of axillary vein, acute bilateral (~02/2019[place] [facility] [place], bilateral (~02/2019[place] [facility] [place] [place] [facility] [place]; RECURRENT Tricuspid regurgitation 02/28/19 [facility] [place]; MILD TO MOD PAH (pulmonary artery hypertension) 02/28/19 [facility] [place]ILD[place] Esophagitis determined by endoscopy (~05/2018) Esophageal foreign body (~05/2018) Bipolar disorder Surgical History S/P cholecystectomy 04/29/23 [facility] Surgical/Oncology. -hb H/O superior vena cava filter placement Abnormal findings on esophagogastroduodenoscopy (EGD) S/P partial thyroidectomy S/P IVC filter (~08/2019) [facility] [place] (~08/2019) 09[place]11[place] [facility] [place] S/P PENILE SHUNT (AL-[facility]AB) H/O hernia repair Unspecified site, repaired x3 History of splenectomy Social History Smoking/Tobacco Use Status: Never Smoking risk assessment performed?: Yes Alcohol Intake: never Drug use: Never Substance use type: does not use Housing: house Current gender identity: male Do you feel safe at home: Yes Do you feel safe in your relationship?: Yes Sign Out <Guille Saldaña MD - Last Filed: 12/01/23 23:50> Sign Out Data: Sign Out Comment: Signed out pending completion of IV fluids/potassium and anticipatory discharge home. Last updated by Guille Saldaña MD at 12/01/23 23:51
--- NOTE | 2023-12-01 19:30 | DI.CT_ITS ---
Exam(s) CT CHEST PE ABD PELVIS W EXAM: CT CHEST PE ABD PELVIS W CLINICAL HISTORY: SOB, vomiting;. TECHNIQUE: Imaging Protocol: Axial CT angiography was performed with multi-slice acquisition and m ulti-planar and/or 3D reconstructions. CONTRAST MATERIAL: Intravenous: Omnipaque 350 Contrast volume:100 ml Oral: None COMPARISON: CT CT CHEST PE CTA from 07/09/2023 FINDINGS: CHEST: PULMONARY ARTERIES: Less than optimal bolus timing. There are no obvious intra-arterial filling defe cts to suggest the presence of acute pulmonary emboli. LUNGS: There is no evidence of pulmonary infarction.No infiltrates. No ominous pulmonary nodules. T here are no pleural effusions. MEDIASTINUM: There is no hilar nor mediastinal adenopathy. CARDIAC: Heart size is normal. There is no pericardial effusion. There is no significant shift of t he interventricular septum.Caliber thoracic aorta is within normal limits and there is no evidence of aortic dissection. OSSEOUS: No significant osseous lesions.No fractures.. ABDOMEN: There is no ascites. LIVER: There are no focal hepatic lesions nor dilatation of intrahepatic ducts. GALLBLADDER/BILIARY: Gallbladder is not seen and may be surgically absent. CBD is not dilated. PANCREAS: No evidence of pancreatic mass nor dilatation of the pancreatic duct. SPLEEN: Spleen is not identified. There are no surgical clips in this region. ADRENALS: There are no significant adrenal masses. KIDNEYS:No cysts evident. No calculi nor hydronephrosis. No solid renal masses. ABDOMINAL AORTA: Abdominal aorta is not enlarged. No dissection. Aortoiliac segments also unremarka ble. IVC: There is an IVC filter in place. There is no evidence of intraluminal thrombus in the IVC above nor below the level of the filter nor within the iliac and femoral veins. LYMPH NODES: There is no retroperitoneal or para-aortic adenopathy. ABDOMINAL WALL/GI: There is generalized thickening of the CN over the abdomen and mild streaking in t he subcutaneous fat. There appears to be mild anasarca. No evidence of significant anterior abdomin al wall hernia. No bowel obstruction. PELVIS: LYMPH NODES: There is no intrapelvic nor inguinal adenopathy. GI: Appendix difficult to identify is a separate structure is in this thin patient but no evidence of obvious acute appendicitis.No evidence of sigmoid diverticulitis. URINARY BLADDER: Bladder wall is uniformly thickened. REPRODUCTIVE: Prostate and seminal vesicles not enlarged. OSSEOUS: No significant osseous lesions. No fractures. Sacroiliac joints unremarkable. Chronic disc space narrowing L5-S1 level. IMPRESSION: 1. No evidence of acute pulmonary emboli nor pulmonary infarction. Lungs are clear and there are no pleural effusions. 2. No evidence of aortic dissection nor pericardial effusion. 3. There is an IVC filter in place. There is no evidence of intraluminal thrombus in the IVC above n or below the filter level nor within the iliac veins. 4. There is symmetrical generalized skin thickening and subcutaneous stranding on both sides of the a bdomen, indicative of an element of mild anasarca. There is no distinct subcutaneous fluid collectio n. 5. There is diffuse thickening of the urinary bladder wall. The prostate gland is not enlarged. RADIATION DOSE DELIVERED: 1,521.63mGy.cm Total DLP DATA REPOSITORY: All CT scans at this facility are submitted to the National Radiology Data Registry (NRDR) Dose Index Registry (DIR) with the [employer] (ACR). RADIATION OPTIMIZATION: All CT scans at this facility use at least one of these dose optimization te chniques: automated exposure control; mA and/or kV adjustment per patient size (includes targeted exa ms where dose is matched to clinical indication); or iterative reconstruction.
--- NOTE | 2023-12-01 19:30 | RT.EKG_ITS ---
APPROVED REPORT Exam: Resting ECG Reason for Exam: chest pain Patient Location: E HR:69 bpm ECG Measurements Heart Rate 69 AXIS AR 183 P 50 QRSd 114 QRS 40 QT 435 T 26 QTc 466 Conclusion Sinus rhythm...normal P axis, V-rate 60- 99 Probable left ventricular hypertrophy...multiple LVH criteria Nonspecific ST-T changes with loss of convexity in the up slope of ST segment v3 - v6. This is new compared to previous from 07/09/23
[2023-12-01 19:46] LABS: BE (Venous) -4 mmol/L (-2-3); HCO3 (Venous) 21 mmol/L (23-28); O2 Sat (Venous) 88 %; TCO2 (Venous) 19 mmol/L (24-29); pCO2 (Venous) 35 mmHg (41-51); pH (Venous) 7.39 (7.31-7.41); pO2 (Venous) 51 mmHg
[2023-12-01 19:48] LABS: HCT 43.2 % (40.0-50.0); HGB 14.8 g/dL (13.5-17.5); MCH 31.4 pg (27.0-33.0); MCHC 34.3 % (32.0-36.0); MCV 92 fL (80-95); MPV 9.6 fL (8.0-11.0); Platelet Count 419 10^3/uL (130-400); RBC 4.72 10^6/uL (4.36-5.78); RDW 14.5 % (11.8-14.1); RDW-SD 48.5 fL; WBC 15.88 10^3/uL (4.4-10.8)
[2023-12-01] MEDS: Lactated Ringers 1,000 ML 1000 ML IV (19:50)
[2023-12-01] MEDS: LORazepam 2 MG/ML VIAL 1 MG IVP (19:54)
[2023-12-01 20:08] LABS: ALT 65 U/L (16-63); AST 66 U/L (15-37); Albumin 4.1 g/dL (3.4-5.0); Alkaline Phosphatase 67 U/L (46-116); Anion Gap 13.6 mmol/L (3-11); BUN 32 mg/dL (7-18); Bilirubin, Total 2.3 mg/dL (0.2-1.0); CO2 22.4 mmol/L (21.0-32.0); CREATININE 1.2 mg/dL (0.70-1.30); Calcium 8.6 mg/dL (8.5-10.1); Chloride 91 mmol/L (98-107); Estimated GFR 78.89 (mL/min/1.73m2); Glucose 111 mg/dL (74-106); Sodium 127 mmol/L (136-145); Total Protein 7.8 g/dL (6.4-8.2); Troponin I < 50 ng/L (< or =60)
[2023-12-01 20:10] LABS: Potassium 2.6 mmol/L (3.5-5.1)
[2023-12-01 20:13] LABS: Absolute Monocyte Count 1.75 10^3/uL (0.1-0.8); Absolute Neutrophil Count 4.76 10^3/uL (1.2-6.7); Atypical Lymphocytes % 30 %
[2023-12-01 20:14] LABS: Absolute Lymphocyte Count 9.37 10^3/uL (1.2-3.4); Diff Comment Manual Differential; RBC Morphology Normal
[2023-12-01] MEDS: Normal Saline - Diluent 50 ML VIAL IJ (20:21)
[2023-12-01] MEDS: Omnipaque 350 MG/ML 100 ML BTL IJ (20:21)
[2023-12-01 20:38] LABS: Bilirubin Negative (Negative); Blood Negative (Negative); Clarity Clear (Clear); Glucose Negative (Negative); Ketones Negative (Negative); Leukocyte Esterase Negative (Negative); Nitrite Negative (Negative); Specific Gravity <= 1.005 (1.005-1.025); Urobilinogen 0.2 mg/dL (Up to 0.2)
[2023-12-01] MEDS: POTASSIUM CHLORIDE 10 MEQ/100 ML BAG 100 MEQ IVINF ×2 (20:46→21:42)
--- NOTE | 2023-12-01 21:29 | DI.VRAD_ITS ---
PROCEDURE INFORMATION: Exam: CTA Chest With Contrast CTA Abdomen With Contrast Exam date and time: 12/01/2023 8:35 PM Age: 38 years old Clinical indication: Shortness of breath; Other: Vomiting; Additional info: SOB, vomiting; TECHNIQUE: Imaging protocol: Computed tomographic angiography of the chest with contrast. Exam focused on the arteries. Computed tomographic angiography of the abdomen with contrast. Exam focused on the arteries. 3D rendering (Not supervised by radiologist): MIP and/or 3D reconstructed images were created by the technologist. Contrast material: OMNI 350; Contrast volume: 100 ml; Contrast route: INTRAVENOUS (IV); COMPARISON: CT CHEST PE CTA 07/09/2023 5:38 PM FINDINGS: VASCULATURE: Pulmonary arteries: No pulmonary embolism identified. Aorta: No thoracic or abdominal aortic aneurysm or dissection. Celiac trunk and mesenteric arteries: Celiac artery, superior mesenteric artery, and inferior mesenteric artery widely patent, as seen. Renal arteries: Main right and left renal arteries widely patent. Possible small accessory artery on the left, not well demonstrated. Right iliac arteries: Right common iliac, internal iliac, and external iliac arteries widely patent. Right femoral/popliteal arteries: Right common femoral and visualized proximal right superficial femoral arteries widely patent. Left iliac arteries: Left common iliac, internal iliac, and external iliac arteries widely patent. Left femoral/popliteal arteries: Left common femoral and visualized proximal left superficial femoral arteries widely patent. Veins: Inferior vena cava filter in-situ. Thyroid: Thyroid gland partially obscured by artifact but normal in size. CHEST: Lungs: No pulmonary consolidation. Pleural spaces: No pleural effusion or pneumothorax. Heart: Normal-sized heart. Esophagus: Fluid in the thoracic esophagus suggesting gastroesophageal reflux. ABDOMEN AND PELVIS: Liver: Normal appearing liver. Gallbladder and bile ducts: Gallbladder not identified. Prior cholecystectomy? Correlation with surgical history recommended. No biliary dilatation. Pancreas: Normal appearing pancreas. Spleen: No spleen identified. Prior splenectomy? Correlation with surgical history recommended. Adrenal glands: Adrenal glands partially obscured but grossly unremarkable, as seen. Kidneys and ureters: Normal appearing kidneys. No hydronephrosis. Stomach and bowel: Stomach moderately distended with fluid and gas. No small bowel dilatation to suggest obstruction. Normal-appearing colon. No evidence of diverticulitis or colitis. Appendix: Appendix not identified, obscured if present. Correlation with surgical history recommended. If there is clinical concern for acute appendicitis and the patient still has an appendix, additional evaluation would be recommended. Intraperitoneal space: No gross ascites or free air. Urinary bladder: Urinary bladder partially decompressed but with bladder wall thickening. Reproductive: Normal-appearing prostate gland and seminal vesicles. Lymph nodes: No pathologically enlarged mediastinal or hilar lymph nodes. No pathologically enlarged mesenteric, retroperitoneal, or pelvic sidewall lymph nodes. Bones/joints: No acute fracture seen among the bones of the chest, abdomen, or pelvis. Spinal degenerative change with small Schmorl's nodes at multiple levels. Prominent discogenic degeneration at L5-S1. Soft tissues: No gross soft tissue mass or fluid collection seen in the chest wall. No significant ventral or inguinal hernia. IMPRESSION: 1. No thoracic or abdominal aortic aneurysm or dissection. No pulmonary embolism identified. 2. No pulmonary consolidation, pleural effusion, or pneumothorax. 3. No acute bowel pathology demonstrated. 4. Fluid in the thoracic esophagus suggesting gastroesophageal reflux. Dictated and Authenticated by: William Treviño MD. Ordering:KIM Han MD
[2023-12-01] MEDS: Potassium Chloride 20 MEQ TABCR 40 MEQ PO (21:42)
[2023-12-01 21:54] LABS: BE (Venous) 0 mmol/L (-2-3); HCO3 (Venous) 25 mmol/L (23-28); Lactate 0.7 mmol/L (0.6-1.4); O2 Sat (Venous) 95 %; TCO2 (Venous) 22 mmol/L (24-29); pCO2 (Venous) 39 mmHg (41-51); pH (Venous) 7.41 (7.31-7.41); pO2 (Venous) 67 mmHg
[2023-12-01 22:23] LABS: Troponin I < 50 ng/L (< or =60)
[2023-12-01 22:35] LABS: Lab Add On Test DONE
[2023-12-01 22:42] LABS: Anion Gap 8.3 mmol/L (3-11); BUN 33 mg/dL (7-18); CO2 24.7 mmol/L (21.0-32.0); Calcium 8.1 mg/dL (8.5-10.1); Chloride 98 mmol/L (98-107); Estimated GFR 98.18 (mL/min/1.73m2); Glucose 96 mg/dL (74-106); Sodium 131 mmol/L (136-145)
[2023-12-01 22:44] LABS: Potassium 2.7 mmol/L (3.5-5.1)
[2023-12-01] MEDS: POTASSIUM CHLORIDE/0.9% NACL 1,000 ML 500 MEQ IV (23:04)
[2023-12-02] VITALS (57 sets, daily range): BP systolic 90–118; BP diastolic 36–58; PULSE 53–76; RESP 13–23; O2SAT 93–98
== END 2023-12-02 01:15 | disposition home or self-care (01) ==
PROVIDERS: Emergency Medicine; Emergency Provider Student in an Organized Health Care Education/Training Program; PCP Family Medicine
DX: E87.1 Hypo-osmolality and hyponatremia (principal); F41.9 Anxiety disorder, unspecified; E87.6 Hypokalemia; I10 Essential (primary) hypertension; E89.0 Postprocedural hypothyroidism; Z86.711 Personal history of pulmonary embolism; Z86.718 Personal history of other venous thrombosis and embolism; Z79.01 Long term (current) use of anticoagulants
CPT/HCPCS: 71275; 74177; 80048; 80053; 82805; 87040; 93005; 96365; 96366; 99285; 81003; 83605; 84484; 85025; 93010; 99284; J2060; J3480; J3490

== ENCOUNTER → 2023-12-10 01:21 | Outpatient (CLI) | payer OTHER, MEDICAID, SELFPAY ==
--- NOTE | 2023-12-10 06:45 | DI.RAD_ITS ---
Exam(s) XR SACRUM COCCYX EXAM: XR SACRUM COCCYX CLINICAL HISTORY: coccyx pain for months,M53.3. TECHNIQUE: 2D digital imaging was performed. COMPARISON: No exams were available for comparison FINDINGS: 3 views No evidence of sacral nor coccyx fracture. No osseous lesions. Sacroiliac joints appear unremarkabl e There is, however, advanced uniform thinning of the L5-S1 disc space noted IMPRESSION: No acute osseous findings in the sacrum and coccyx. Advanced disc space narrowing L5-S1 level. DATA REPOSITORY: RADIATION DOSE DELIVERED:
--- NOTE | 2023-12-10 06:45 | DI.RAD_ITS ---
Exam(s) XR CERVICAL SPINE COMP 4-5V EXAM: XR CERVICAL SPINE COMP 4-5V CLINICAL HISTORY: arm and leg numbness,. TECHNIQUE: 2D digital imaging was performed. COMPARISON: CR,RF RF UPPER GI SERIES from 09/04/2022 FINDINGS: Five views: No evidence of fracture, listhesis, nor offset of the spinal laminar line. All the disc spaces exhib it normal height. There is no facet arthropathy evident. No cervical ribs. No osseous lesions. Pipe ne density normal. There are surgical clips noted in the soft tissues lower down in the neck. IMPRESSION: No significant osseous findings in the cervical spine. DATA REPOSITORY: RADIATION DOSE DELIVERED:
== END ==
PROVIDERS: PCP Family Medicine; Visit Provider Family Medicine
DX: F41.9 Anxiety disorder, unspecified (principal); M53.3 Sacrococcygeal disorders, not elsewhere classified
CPT/HCPCS: 72050; 72220

== ENCOUNTER 2023-12-14 05:03 | Outpatient (CLI) | payer OTHER, MEDICAID, SELFPAY ==
[2023-12-14 10:16] LABS: HCT 44.4 % (40.0-50.0); HGB 15.1 g/dL (13.5-17.5); MCH 31.4 pg (27.0-33.0); MCV 92 fL (80-95); Platelet Count 457 10^3/uL (130-400); RBC 4.81 10^6/uL (4.36-5.78); RDW 14.4 % (11.8-14.1); RDW-SD 49.1 fL; WBC 13.38 10^3/uL (4.4-10.8)
[2023-12-14 10:39] LABS: Absolute Neutrophil Count 6.02 10^3/uL (1.2-6.7)
[2023-12-14 10:40] LABS: Absolute Eosinophil Count 0.13 10^3/uL (0.0-0.7); Absolute Lymphocyte Count 6.15 10^3/uL (1.2-3.4); Absolute Monocyte Count 0.94 10^3/uL (0.1-0.8); Atypical Lymphocytes % 10 %
[2023-12-14 10:41] LABS: Diff Comment Manual Differential; Other Cells % 1; RBC Morphology Normal
== END 2023-12-14 05:04 | disposition home or self-care (01) ==
LOC: LBO 05:03
PROVIDERS: PCP Family Medicine; Visit Provider Family Medicine
DX: D64.9 Anemia, unspecified (principal)
CPT/HCPCS: 36415; 85025

== ENCOUNTER 2024-01-13 09:34 | Emergency (ER) | payer OTHER, MEDICAID, SELFPAY ==
[2024-01-13 09:38] VITALS: BP 133/57; PULSE 69; RESP 16; TEMP 36.9; O2SAT 97
[2024-01-13 09:44] VITALS: BP 133/57; PULSE 69; RESP 16; TEMP 36.9; O2SAT 97
--- NOTE | 2024-01-13 09:53 | W.ED.GENAD ---
Discharge Plan Disposition Patient Disposition: Home Condition: Stable Discharge Details Clinical Impression: Acute effusion of left ear Primary Care Provider: José Miguel Flores ED Provider: Amanda Diego Home Meds and New Rx's Prescriptions: New triamcinolone acetonide [24 Hour Nasal Allergy] 55 mcg aerosol,spray 2 spray intranasal DAILY 5 Days Qty: 16.9 0RF Rx Instructions: administer into each nostril Continued epinephrine [EpiPen 2-Farrukh] 0.3 mg/0.3 mL auto-injector 0.3 mg IM ONCE Qty: 2 0RF Rx Instructions: as a single dose sertraline 100 mg tablet 200 mg PO DAILY Qty: 180 3RF Rx Instructions: dose increase 06/02/23 risperidone 1 mg tablet 1 mg PO BID Qty: 60 11RF loratadine 10 mg tablet 10 mg PO DAILY PRN (Reason: allergy symptoms) Qty: 30 3RF pantoprazole 40 mg tablet,delayed release (DR/EC) 40 mg PO BID Qty: 180 3RF apixaban 5 mg tablet 5 mg PO BID Qty: 180 3RF famotidine 20 mg tablet 20 mg PO BID Qty: 180 3RF acetaminophen [Tylenol Extra Strength] 500 mg tablet 1,000 mg PO TID PRN (Reason: pain/fever) Qty: 270 4RF doxepin 10 mg capsule 10 mg PO BID Qty: 60 2RF clonazepam 1 mg tablet 1 mg PO BID PRN (Reason: anxiety) Qty: 60 5RF Discharge Instructions Instructions: Eustachian Tube Problems (DC), Fluid in the Ear ED Additional Instructions: Please take an [id number] decongestant such as Sudafed or similar for the next 3 to 4 days, you may also use the prescribed nasal medication and spray as directed. 2 sprays in each nostril daily for the next 5 to 7 days. At this time the ear does not appear to be infected so no antibiotics are needed at this time. Follow up with primary care provider in 3-5 days. Return to ED sooner if any worsening or concerns. Please take Tylenol or Ibuprofen with food every 4-6 hours as needed for pain and swelling. Referrals: José Miguel Flores MD [Primary Care Provider] - Return if symptoms worsen Discharge Data Discharge Date/Time-TO BE ENTERED AT DEPARTURE: 01/13/24 10:10 HPI General Mode of arrival: ambulatory. Date/Time Provider Initiated Documentation: 01/13/24 09:45. Limitations to Documentation: no limitations (hx of crippling anxiety, avoids eye contact). Information obtained by: patient, RN notes reviewed and old records reviewed. HPI Narrative: 38-year-old male presents to the ER with a chief complaint of left ear pain for the couple of days. He reports whooshing in his ear, denies any fever chills sore throat runny nose or sinus pressure. Denies any recent swimming or barotrauma or injuries. No other associated symptoms or concerns. PMHX includes vena cava filter, Acquired hypercoaguable state, Thrombocytosis after splenectomy, Spherocytosis, HTN, DVT of axillary veins bilaterally, bilateral PE's, Bipolar, Related Data Home Medications ?Medication ?Instructions ?Recorded ?Confirmed apixaban 5 mg tablet 5 mg PO BID pulmonary embolism 05/31/23 01/13/24 #180 tabs epinephrine 0.3 mg/0.3 mL 0.3 mg (0.3 mL) IM ONCE #2 ea 06/02/23 01/13/24 injection, auto-injector (EpiPen 2-Farrukh) sertraline 100 mg tablet 200 mg (2 x 100 mg) PO DAILY #180 06/02/23 01/13/24 tabs famotidine 20 mg tablet 20 mg PO BID #180 tabs 11/01/23 01/13/24 loratadine 10 mg tablet 10 mg PO DAILY PRN allergy 12/01/23 01/13/24 symptoms #30 tabs pantoprazole 40 mg tablet,delayed 40 mg PO BID #180 tabs 12/01/23 01/13/24 release risperidone 1 mg tablet 1 mg PO BID #60 tabs 12/01/23 01/13/24 acetaminophen 500 mg tablet 1,000 mg (2 x 500 mg) PO TID PRN 01/03/24 01/13/24 (Tylenol Extra Strength) pain/fever #270 tabs doxepin 10 mg capsule 10 mg PO BID itching #60 caps 01/03/24 01/13/24 clonazepam 1 mg tablet 1 mg PO BID PRN anxiety #60 tabs 01/05/24 01/13/24 triamcinolone acetonide 55 mcg 2 spray intranasal DAILY 5 days 01/13/24 01/13/24 nasal spray aerosol (24 Hour Nasal #16.9 mL Allergy) Previous Rx's ?Medication ?Instructions ?Recorded apixaban 5 mg tablet 5 mg PO BID pulmonary embolism 05/31/23 #180 tabs epinephrine 0.3 mg/0.3 mL 0.3 mg (0.3 mL) IM ONCE #2 ea 06/02/23 injection, auto-injector (EpiPen 2-Farrukh) sertraline 100 mg tablet 200 mg (2 x 100 mg) PO DAILY #180 06/02/23 tabs famotidine 20 mg tablet 20 mg PO BID #180 tabs 11/01/23 loratadine 10 mg tablet 10 mg PO DAILY PRN allergy 12/01/23 symptoms #30 tabs pantoprazole 40 mg tablet,delayed 40 mg PO BID #180 tabs 12/01/23 release risperidone 1 mg tablet 1 mg PO BID #60 tabs 12/01/23 acetaminophen 500 mg tablet 1,000 mg (2 x 500 mg) PO TID PRN 01/03/24 (Tylenol Extra Strength) pain/fever #270 tabs doxepin 10 mg capsule 10 mg PO BID itching #60 caps 01/03/24 clonazepam 1 mg tablet 1 mg PO BID PRN anxiety #60 tabs 01/05/24 triamcinolone acetonide 55 mcg 2 spray intranasal DAILY 5 days 01/13/24 nasal spray aerosol (24 Hour Nasal #16.9 mL Allergy) Allergies Allergy/AdvReac Type Severity Reaction Status Date / Time cat's claw Allergy Unknown Skin Rash Verified 01/13/24 09:41 neomycin (From Neosporin Allergy Unknown Skin Rash Verified 01/13/24 09:41 ([id number])) polymyxin B (From Neosporin Allergy Unknown Skin Rash Verified 01/13/24 09:41 ([id number])) bacitracin Allergy Skin Rash Verified 01/13/24 09:41 dog dander Allergy Skin Rash Verified 01/13/24 09:41 beer Allergy Severe Anaphylaxsi Uncoded 01/13/24 09:41 s General Stated Complaint: EarProblem CONSTANCE: 4 Review of Systems All systems reviewed & are unremarkable except as noted in HPI and below Constitutional Constitutional: Denies fever(s) and Denies headache(s) ENT Ears, Nose, Mouth, and Throat: Reports as per HPI, Denies vertigo, Denies dizziness, Denies ear discharge, Reports otalgia, Denies facial pain, Denies headache(s), Denies hoarseness, Denies nasal congestion, Denies nasal discharge, Denies disequilibrium, Denies post nasal drip, Reports tinnitus (Describes as whooshing), Denies sinus pain, Denies sinus pressure and Denies sore throat Neurologic Neurologic: Denies vertigo, Denies dizziness, Denies headache(s) and Denies disequilibrium Exam Const General: cooperative, healthy appearing, well developed, well groomed, anxious, not ill appearing, does not appear intoxicated and well hydrated Nutritional Appearance: average body habitus and well nourished Orientation: alert, awake and oriented x3 Limitations: behavioral limitations (Crippling anxiety) [facility] Head: normal to inspection, normocephalic and atraumatic Ears: external ears normal, TM normal on the right and TM abnormal (Left) wth effusion serous, with fluid behind the TM and retracted; not bulging, not erythematous, with no loss of landmarks, with no myringotomy tubes present and not perforated General nose exam: external nose normal and nares normal Face and sinus: normal facial exam, sinuses nontender and face symmetric Mouth: oral mucosae normal, lip normal, tongue normal, salivary ducts normal, oropharynx normal and moist mucous membranes Teeth and gingiva: dentition normal and gingiva normal Throat: posterior oropharynx normal Resp Effort & Inspection: normal respiratory effort and able to speak in complete sentences Auscultation: clear to auscultation bilaterally Cardio Rate: regular rate Rhythm: regular rhythm Heart Sounds: S1 normal and S2 normal Course Vital Signs Vital signs: Vital Signs Temperature 36.9 C 01/13/24 09:38 Pulse 69 01/13/24 09:38 Respiratory Rate 16 01/13/24 09:38 Blood Pressure 133/57 L 01/13/24 09:38 Pulse Oximetry 97 01/13/24 09:38 Temperature 36.9 C 01/13/24 09:44 Temperature Source Skin 01/13/24 09:44 Pulse 69 01/13/24 09:44 Respiratory Rate 16 01/13/24 09:44 Blood Pressure 133/57 L 01/13/24 09:44 Blood Pressure Position Sitting 01/13/24 09:44 Pulse Oximetry 97 01/13/24 09:44 Oxygen Delivery Method Room Air 01/13/24 09:44 Oxygen Flow Rate 0 01/13/24 09:44 Pain Level 3 01/13/24 09:45 Medical Decision Making 38-year-old male presents to the ER with a chief complaint of left ear pain for the couple of days. He reports whooshing in his ear, denies any fever chills sore throat runny nose or sinus pressure. Denies any recent swimming or barotrauma or injuries. No other associated symptoms or concerns. On exam he does not have any erythema or bulging he does have a retracted left tympanic membrane, there is small amount of effusion behind the eardrum. No otitis media suspected. I did discuss with him home care and sevb-[id number]-[id number] remedies including fluticasone and Zyrtec or oxymetazoline nasal spray he verbalized understanding. I also discussed that he may take a decongestant which would help. At this time antibiotics are not indicated due to clinical presentation and no evidence of otitis media. Discussed follow up and home care, verbalized understanding. Patient discharged in hemodynamically stable condition. Medical Records Medical records reviewed: Yes I reviewed the patient's medical records. 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 Hyperbilirubinemia Biliary colic Essential hypertension DVT of axillary vein, acute bilateral (~02/2019) [facility] [place] Pulmonary embolism, bilateral (~02/2019) [facility] [place] PE Dr. Flores [facility] [place] 08/2019; RECURRENT Tricuspid regurgitation 02/28/19 [facility] [place] ECHO; MILD TO MOD PAH (pulmonary artery hypertension) 02/28/19 [facility] [place] ECHO (MILD) Esophagitis determined by endoscopy (~05/2018) Esophageal foreign body (~05/2018) Bipolar disorder Surgical History S/P cholecystectomy 04/29/23 [facility] Surgical/Oncology. -hb H/O superior vena cava filter placement Abnormal findings on esophagogastroduodenoscopy (EGD) S/P partial thyroidectomy S/P IVC filter (~08/2019) [facility] [place] Priapism (~08/2019) 09/11/19 [facility] [place]; S/P PENILE SHUNT (AL-GHORAB) H/O hernia repair Unspecified site, repaired x3 History of splenectomy Social History Smoking/Tobacco Use Status: Never Smoking risk assessment performed?: Yes Alcohol Intake: never Drug use: Never Substance use type: does not use Housing: house Current gender identity: male Do you feel safe at home: Yes Do you feel safe in your relationship?: Yes
== END 2024-01-13 10:10 | disposition home or self-care (01) ==
PROVIDERS: Emergency Provider Registered Nurse Emergency; PCP Family Medicine
DX: H92.02 Otalgia, left ear (principal); Z79.01 Long term (current) use of anticoagulants; I10 Essential (primary) hypertension; Z86.711 Personal history of pulmonary embolism; Z86.718 Personal history of other venous thrombosis and embolism
CPT/HCPCS: 99283

== ENCOUNTER 2024-01-26 06:05 | Emergency (ER) | payer OTHER, MEDICAID, SELFPAY ==
[2024-01-26 06:09] VITALS: BP 123/57; PULSE 82; RESP 16; TEMP 36.7; O2SAT 96
--- NOTE | 2024-01-26 06:12 | W.ED.GENAD ---
Discharge Plan Discharge Details Chief Complaint: Orthopedic Clinical Impression: Contusion of rib on right side Primary Care Provider: José Miguel Flores ED Provider: James Faria Home Meds and New Rx's Prescriptions: New lidocaine [Lidoderm] 5 % adhesive patch,medicated 1 patch Topical Q24H Qty: 15 0RF No Action epinephrine [EpiPen 2-Farrukh] 0.3 mg/0.3 mL auto-injector 0.3 mg IM ONCE Qty: 2 0RF Rx Instructions: as a single dose sertraline 100 mg tablet 200 mg PO DAILY Qty: 180 3RF Rx Instructions: dose increase 06/02/23 risperidone 1 mg tablet 1 mg PO BID Qty: 60 11RF loratadine 10 mg tablet 10 mg PO DAILY PRN (Reason: allergy symptoms) Qty: 30 3RF apixaban 5 mg tablet 5 mg PO BID Qty: 180 3RF famotidine 20 mg tablet 20 mg PO BID Qty: 180 3RF acetaminophen [Tylenol Extra Strength] 500 mg tablet 1,000 mg PO TID PRN (Reason: pain/fever) Qty: 270 4RF doxepin 10 mg capsule 10 mg PO BID Qty: 60 2RF clonazepam 1 mg tablet 1 mg PO BID PRN (Reason: anxiety) Qty: 60 5RF pantoprazole 40 mg tablet,delayed release (DR/EC) 40 mg PO BID Qty: 180 3RF Discharge Instructions Instructions: Rib Fracture or Bruised Rib ED Additional Instructions: At this time there is concern that your rib has been bruised and contused. Please take Tylenol and Motrin as needed for pain. You can take 800 mg of Motrin every 6 hours and the 1000 mg of Tylenol every 6 hours for the next few days. These are the maximum doses. Please apply the Lidoderm patch and use those as prescribed. They have been sent to your pharmacy on file. If you notice any worsening of your symptoms, or any new symptoms such as vomiting, diarrhea, fever, chills, shortness of breath, chest pain, numbness, weakness, or fainting , please return immediately to the emergency department for reevaluation. Please follow up with your primary care provider as soon as possible for reassessment and reevaluation. As always, it was a pleasure participating in your medical care today. Referrals: José Miguel Flores MD [Primary Care Provider] - [facility] General Date/Time Provider Initiated Documentation: 01/26/24 06:07. HPI Narrative: This is a 38-year-old male with a past medical history of debilitating anxiety, bipolar, priapism's, hereditary spherocytosis GERD, IVC filter, PEs and DVTs, pulmonary artery hypertension, esophagitis,?known gallstones, splenectomy, partial thyroidectomy, who presents today for evaluation of right rib pain. Patient states that 2 days ago he fell and landed on his right ribs. Since then he has had pain with breathing and movement. He has not taken anything to improve the pain at this time. He denies any fever or chills. No cough or shortness of breath. Pain is made worse with movement and some with breathing. No other complaints at this time. No other modifying factors. Related Data Home Medications ?Medication ?Instructions ?Recorded ?Confirmed apixaban 5 mg tablet 5 mg PO BID pulmonary embolism 05/31/23 01/26/24 #180 tabs epinephrine 0.3 mg/0.3 mL 0.3 mg (0.3 mL) IM ONCE #2 ea 06/02/23 01/26/24 injection, auto-injector (EpiPen 2-Farrukh) sertraline 100 mg tablet 200 mg (2 x 100 mg) PO DAILY #180 06/02/23 01/26/24 tabs famotidine 20 mg tablet 20 mg PO BID #180 tabs 11/01/23 01/26/24 loratadine 10 mg tablet 10 mg PO DAILY PRN allergy 12/01/23 01/26/24 symptoms #30 tabs risperidone 1 mg tablet 1 mg PO BID #60 tabs 12/01/23 01/26/24 acetaminophen 500 mg tablet 1,000 mg (2 x 500 mg) PO TID PRN 01/03/24 01/26/24 (Tylenol Extra Strength) pain/fever #270 tabs doxepin 10 mg capsule 10 mg PO BID itching #60 caps 01/03/24 01/26/24 clonazepam 1 mg tablet 1 mg PO BID PRN anxiety #60 tabs 01/05/24 01/26/24 pantoprazole 40 mg tablet,delayed 40 mg PO BID #180 tabs 01/25/24 01/26/24 release lidocaine 5 % topical patch 1 patch topical Q24H #15 ea 01/26/24 (Lidoderm) Previous Rx's ?Medication ?Instructions ?Recorded apixaban 5 mg tablet 5 mg PO BID pulmonary embolism 05/31/23 #180 tabs epinephrine 0.3 mg/0.3 mL 0.3 mg (0.3 mL) IM ONCE #2 ea 06/02/23 injection, auto-injector (EpiPen 2-Farrukh) sertraline 100 mg tablet 200 mg (2 x 100 mg) PO DAILY #180 06/02/23 tabs famotidine 20 mg tablet 20 mg PO BID #180 tabs 11/01/23 loratadine 10 mg tablet 10 mg PO DAILY PRN allergy 12/01/23 symptoms #30 tabs risperidone 1 mg tablet 1 mg PO BID #60 tabs 12/01/23 acetaminophen 500 mg tablet 1,000 mg (2 x 500 mg) PO TID PRN 01/03/24 (Tylenol Extra Strength) pain/fever #270 tabs doxepin 10 mg capsule 10 mg PO BID itching #60 caps 01/03/24 clonazepam 1 mg tablet 1 mg PO BID PRN anxiety #60 tabs 01/05/24 pantoprazole 40 mg tablet,delayed 40 mg PO BID #180 tabs 01/25/24 release lidocaine 5 % topical patch 1 patch topical Q24H #15 ea 01/26/24 (Lidoderm) Allergies Allergy/AdvReac Type Severity Reaction Status Date / Time cat's claw Allergy Unknown Skin Rash Verified 01/26/24 06:11 neomycin (From Neosporin Allergy Unknown Skin Rash Verified 01/26/24 06:11 ([id number])) polymyxin B (From Neosporin Allergy Unknown Skin Rash Verified 01/26/24 06:11 ([id number])) bacitracin Allergy Skin Rash Verified 01/26/24 06:11 dog dander Allergy Skin Rash Verified 01/26/24 06:11 beer Allergy Severe Anaphylaxsi Uncoded 01/26/24 06:11 s General Stated Complaint: Orthopedic CONSTANCE: 3 Review of Systems All systems reviewed & are unremarkable except as noted in HPI and below Exam Narrative Exam Narrative: 1.Const: Well-nourished, Well-developed, appearing stated age 2.Eyes: PERRL, no conjunctival injection, and symmetrical lids. 3.ENT: Atraumatic external nose and ears. Moist MM. Neck: Symmetric, trachea midline, No thyromegaly. 4.CVS: +S1/S2, No murmurs or gallops. Peripheral pulses 2+ and equal in all extremities. Brisk capillary refill in all extremities. 5.RESP: Airway clear, no obstructions. No abrasions or ecchymosis. Chest movement symmetric with respirations. Mild chest wall tenderness over the right lateral ribs. Trachea midline. No crepitus. No step offs. No paradoxical movements. Lungs are clear to auscultation bilaterally. No rales, rhonchi, wheezing or stridor. Breath sound symmetric. No Sucking chest wounds. No clinical evidence of significant chest trauma. 6.GI: Soft, Nontender/Nondistended, No hepatosplenomegaly. No guarding or rebound. 7.MSK: Normocephalic/Atraumatic, Extremities w/o deformity or ttp No cyanosis or clubbing, Normal movement of all extremities 8.Skin: Warm, Dry. No rashes or lesions. 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 Sensation grossly intact, no focal neurologic deficits. 10.Psych: (AAO) x3. Appropriate mood and affect Course Vital Signs Vital signs: Vital Signs Temperature 36.7 C 01/26/24 06:09 Pulse 82 01/26/24 06:09 Respiratory Rate 16 01/26/24 06:09 Blood Pressure 123/57 L 01/26/24 06:09 Pulse Oximetry 96 01/26/24 06:09 Temperature 36.7 C 01/26/24 06:09 Pulse 82 01/26/24 06:09 Respiratory Rate 16 01/26/24 06:09 Blood Pressure 123/57 L 01/26/24 06:09 Blood Pressure Position Sitting 01/26/24 06:09 Pulse Oximetry 96 01/26/24 06:09 Oxygen Delivery Method Room Air 01/26/24 06:09 Oxygen Flow Rate 0 01/26/24 06:09 Pain Level 7 01/26/24 06:09 Medical Decision Making This is a 38-year-old male with a past medical history of debilitating anxiety, bipolar, priapism's, hereditary spherocytosis GERD, IVC filter, PEs and DVTs, pulmonary artery hypertension, esophagitis,?known gallstones, splenectomy, partial thyroidectomy, who presents today for evaluation of right rib pain. Patient states that 2 days ago he fell and landed on his right ribs. Since then he has had pain with breathing and movement. He has not taken anything to improve the pain at this time. He denies any fever or chills. No cough or shortness of breath. Pain is made worse with movement and some with breathing. No other complaints at this time. No other modifying factors. Physical exam shows evidence of mild right-sided rib tenderness. No subcutaneous crepitus. Normal lung sounds. Symptoms inconsistent with PE or dissection. Symptoms most concerning for contusion of the ribs versus fracture. We offered NSAID therapy to the patient but he declined. We will apply Lidoderm patch which she has agreed to. Personal review of x-ray shows no evidence of pneumothorax or large rib fractures that I can appreciate. There is certainly may be a small undiagnosed rib fracture present. Patient will be signed out pending x-ray results. Will recommend Lidoderm patch and NSAID use for home. 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 Hyperbilirubinemia Biliary colic Essential hypertension DVT of axillary vein, acute bilateral (~02/2019) [facility] [place]monary embolism, bilateral (~02/2019) [facility] [place] Dr. Flores [facility] [place] 08/2019; RECURRENT Tricuspid regurgitation 02/28/19 [facility] [place] ECHO; MILD TO MOD PAH (pulmonary artery hypertension) 02/28/19 [facility] [place] ECHO (MILD) Esophagitis determined by endoscopy (~05/2018) Esophageal foreign body (~05/2018) Bipolar disorder Surgical History S/P cholecystectomy 04/29/23 [facility] Surgical/Oncology. -hb H/O superior vena cava filter placement Abnormal findings on esophagogastroduodenoscopy (EGD) S/P partial thyroidectomy S/P IVC filter (~08/2019) [facility] [place] Priapism (~08/2019) 09/11/19 [facility] [place]; S/P PENILE SHUNT ([place]) H/O hernia repair Unspecified site, repaired x3 History of splenectomy Social History Smoking/Tobacco Use Status: Never Smoking risk assessment performed?: Yes Alcohol Intake: never Drug use: Never Substance use type: does not use Housing: house Current gender identity: male Do you feel safe at home: Yes Do you feel safe in your relationship?: Yes
[2024-01-26] MEDS: Lidocaine 5% Patch 1 PATCH TP (06:23)
--- NOTE | 2024-01-26 06:37 | DI.RAD_ITS ---
Exam(s) XR CHEST 2V PA LATERAL EXAM: XR CHEST 2V PA LATERAL CLINICAL HISTORY: right lateral rib pain after fall TECHNIQUE: 2D digital imaging was performed. Two views. COMPARISON: CT CT CHEST PE ABD PELVIS W from 12/01/2023 FINDINGS: HEART: Normal size. Aorta: Not dilated. PULMONARY VASCULATURE: Normal. MEDIASTINUM: Unremarkable. LUNGS: Clear. PLEURAL SPACE: No pleural effusion or pneumothorax. BONE:Unremarkable for age. SOFT TISSUES: Unremarkable. IMPRESSION: No acute abnormality. DATA REPOSITORY: RADIATION DOSE DELIVERED:
--- NOTE | 2024-01-26 06:53 | NUR.NOTE ---
Nursing Note: Gave report and hand off to Nunu Sultana RN
--- NOTE | 2024-01-26 07:47 | DI.VRAD_ITS ---
PROCEDURE INFORMATION: Exam: XR Chest Exam date and time: 01/26/2024 6:30 AM Age: 38 years old Clinical indication: Injury or trauma; Blunt trauma (contusions or hematomas); Injury date: 01/26/24; Patient HX: Right lateral rib pain after fall TECHNIQUE: Imaging protocol: Radiologic exam of the chest. Views: 2 views. COMPARISON: CT CHEST PE ABD PELVIS W 12/01/2023 8:35 PM FINDINGS: Lungs: Unremarkable. No consolidation. Pleural spaces: Unremarkable. No pleural effusion. No pneumothorax. Heart/Mediastinum: Unremarkable. No cardiomegaly. Bones/joints: Unremarkable. IMPRESSION: No acute findings. Dictated and Authenticated by: Miguelangel Johnson MD. Ordering:DONELL Ramirez MD
--- NOTE | 2024-01-26 07:53 | W.EDPROG ---
Date of service: 01/26/24 Time of Service: 07:54 Medical Decision Making Patient signed out to me pending x-ray which was negative. Patient stable and has no new pain and has very mild right lateral chest tenderness. Clear lung sounds, no pneumothorax on the x-ray. Suspect rib contusion, he will follow-up with his PCP and return precautions given Imaging Data Radiologic Study: Attestation: I personally reviewed and interpreted this imaging study as follows: Imaging: X-Ray Radiologist's impression: No acute findings Quality:[facility] Health Related Social Needs: No Data to Display Sign Out Sign Out Data: Sign Out Comment: Fall onto right ribs, bruised/contused. Suspect contusion not to fracture. Follow-up on x-rays. Last updated by Jamse Faria DO at 01/26/24 07:30 Discharge Plan Disposition Patient Disposition: Home Condition: Stable Discharge Details Clinical Impression: Contusion of rib on right side Primary Care Provider: José Miguel Flores ED Provider: Dewayne Felix [place] Med and New Rx's Prescriptions: New lidocaine [Lidoderm] 5 % adhesive patch,medicated 1 patch Topical Q24H Qty: 15 0RF Continued epinephrine [EpiPen 2-Farrukh] 0.3 mg/0.3 mL auto-injector 0.3 mg IM ONCE Qty: 2 0RF Rx Instructions: as a single dose sertraline 100 mg tablet 200 mg PO DAILY Qty: 180 3RF Rx Instructions: dose increase 06/02/23 risperidone 1 mg tablet 1 mg PO BID Qty: 60 11RF loratadine 10 mg tablet 10 mg PO DAILY PRN (Reason: allergy symptoms) Qty: 30 3RF apixaban 5 mg tablet 5 mg PO BID Qty: 180 3RF famotidine 20 mg tablet 20 mg PO BID Qty: 180 3RF acetaminophen [Tylenol Extra Strength] 500 mg tablet 1,000 mg PO TID PRN (Reason: pain/fever) Qty: 270 4RF doxepin 10 mg capsule 10 mg PO BID Qty: 60 2RF clonazepam 1 mg tablet 1 mg PO BID PRN (Reason: anxiety) Qty: 60 5RF pantoprazole 40 mg tablet,delayed release (DR/EC) 40 mg PO BID Qty: 180 3RF Discharge Instructions Instructions: Rib Fracture or Bruised Rib ED Additional Instructions: At this time there is concern that your rib has been bruised and contused. Please take Tylenol and Motrin as needed for pain. You can take 800 mg of Motrin every 6 hours and the 1000 mg of Tylenol every 6 hours for the next few days. These are the maximum doses. Please apply the Lidoderm patch and use those as prescribed. They have been sent to your pharmacy on file. If you notice any worsening of your symptoms, or any new symptoms such as vomiting, diarrhea, fever, chills, shortness of breath, chest pain, numbness, weakness, or fainting , please return immediately to the emergency department for reevaluation. Please follow up with your primary care provider as soon as possible for reassessment and reevaluation. As always, it was a pleasure participating in your medical care today. Referrals: José Miguel Flores MD [Primary Care Provider] -
[2024-01-26 08:04] VITALS: BP 109/55; PULSE 52; RESP 16; O2SAT 94
== END 2024-01-26 08:04 | disposition home or self-care (01) ==
PROVIDERS: Emergency Provider Emergency Medicine; PCP Family Medicine
DX: S20.211A Contusion of right front wall of thorax, initial encounter (principal); I10 Essential (primary) hypertension; E89.0 Postprocedural hypothyroidism; Z90.81 Acquired absence of spleen; Z86.711 Personal history of pulmonary embolism; Z86.718 Personal history of other venous thrombosis and embolism; Z79.01 Long term (current) use of anticoagulants; W10.8XXA Fall (on) (from) other stairs and steps, initial encounter; Y93.01 Activity, walking, marching and hiking; Y92.098 Other place in other non-institutional residence as the place of occurrence of the external cause
CPT/HCPCS: 00123; 99283; 71046

== ENCOUNTER 2024-03-10 01:27 | Outpatient (CLI) | payer OTHER, MEDICAID, SELFPAY ==
[2024-03-10 09:35] LABS: TSH (W/Ref FT4) 0.69 uIU/mL (0.36-3.74)
[2024-03-19 08:10] LABS: Testosterone, Free 10.9 ng/dL (4.65-18.1); Testosterone, Total 378 ng/dL (240-950)
== END 2024-03-10 01:28 | disposition home or self-care (01) ==
LOC: LBO 01:27
PROVIDERS: PCP Family Medicine; Visit Provider Family Medicine
DX: Z00.00 Encounter for general adult medical examination without abnormal findings (principal); E03.9 Hypothyroidism, unspecified
CPT/HCPCS: 36415; 84402; 84403; 84443

== ENCOUNTER 2024-04-02 04:43 | Emergency (ER) | payer OTHER, MEDICAID, SELFPAY ==
--- NOTE | 2024-04-02 05:15 | ED.GENADUL_ITS ---
Discharge Plan Disposition Patient Disposition: Home Condition: Good Discharge Details Clinical Impression: Injury of hand, left Primary Care Provider: José Miguel Flores ED Provider: James Faria Home Meds and New Rx's Prescriptions: No Action epinephrine [EpiPen 2-Farrukh] 0.3 mg/0.3 mL auto-injector 0.3 mg IM ONCE Qty: 2 0RF Rx Instructions: as a single dose sertraline 100 mg tablet 200 mg PO DAILY Qty: 180 3RF Rx Instructions: dose increase 06/02/23 risperidone 1 mg tablet 1 mg PO BID Qty: 60 11RF loratadine 10 mg tablet 10 mg PO DAILY PRN (Reason: allergy symptoms) Qty: 30 3RF apixaban 5 mg tablet 5 mg PO BID Qty: 180 3RF famotidine 20 mg tablet 20 mg PO BID Qty: 180 3RF acetaminophen [Tylenol Extra Strength] 500 mg tablet 1,000 mg PO TID PRN (Reason: pain/fever) Qty: 270 4RF doxepin 10 mg capsule 10 mg PO BID Qty: 60 2RF clonazepam 1 mg tablet 1 mg PO BID PRN (Reason: anxiety) Qty: 60 5RF pantoprazole 40 mg tablet,delayed release (DR/EC) 40 mg PO BID Qty: 180 3RF triamcinolone acetonide 0.1 % cream 1 applic topical BID Qty: 30 2RF fluticasone propionate 50 mcg/actuation spray,suspension 2 spray intranasal DAILY Qty: 9.9 5RF Rx Instructions: administer into each nostril lidocaine [Lidoderm] 5 % adhesive patch,medicated 1 patch Topical Q24H Qty: 15 0RF Discharge Instructions Additional Instructions: At this time there appears to be contusion bruising and injury to the left hand where it is tender at the fifth metacarpal. Please use the splint for the next 1 to 2 weeks as the pain improves. Please take Tylenol as needed for pain. You can also rub topical Voltaren gel over the area to help with the pain. This will not interact significantly with your blood thinner. If you notice any worsening of your symptoms, or any new symptoms such as vomiting, diarrhea, fever, chills, shortness of breath, chest pain, numbness, weakness, or fainting , please return immediately to the emergency department for reevaluation. Please follow up with your primary care provider as soon as possible for reassessment and reevaluation. As always, it was a pleasure participating in your medical care today. Referrals: José Miguel Flores MD [Primary Care Provider] - Discharge Data Discharge Date/Time-TO BE ENTERED AT DEPARTURE: 04/02/24 07:18 HPI General Date/Time Provider Initiated Documentation: 04/02/24 04:45 . HPI Narrative: This is a 38-year-old male with a past medical history of debilitating anxiety, bipolar, priapism's, hereditary spherocytosis GERD, IVC filter, PEs and DVTs, pulmonary artery hypertension, esophagitis,?known gallstones, splenectomy, partial thyroidectomy, who presents today for left hand pain. History is limited as the patient is usually significantly nonverbal when he comes to the ER. However he states that left hand began hurting yesterday. He may have hit it on something. Not improved with NSAID therapy. Pain with movement. No other complaints. No numbness or tingling. Related Data Home Medications ?Medication ?Instructions ?Recorded ?Confirmed apixaban 5 mg tablet 5 mg PO BID pulmonary embolism 05/31/23 04/02/24 #180 tabs epinephrine 0.3 mg/0.3 mL 0.3 mg (0.3 mL) IM ONCE #2 ea 06/02/23 04/02/24 injection, auto-injector (EpiPen 2-Farrukh) sertraline 100 mg tablet 200 mg (2 x 100 mg) PO DAILY #180 06/02/23 04/02/24 tabs famotidine 20 mg tablet 20 mg PO BID #180 tabs 11/01/23 04/02/24 loratadine 10 mg tablet 10 mg PO DAILY PRN allergy 12/01/23 04/02/24 symptoms #30 tabs risperidone 1 mg tablet 1 mg PO BID #60 tabs 12/01/23 04/02/24 acetaminophen 500 mg tablet 1,000 mg (2 x 500 mg) PO TID PRN 01/03/24 04/02/24 (Tylenol Extra Strength) pain/fever #270 tabs doxepin 10 mg capsule 10 mg PO BID itching #60 caps 01/03/24 04/02/24 clonazepam 1 mg tablet 1 mg PO BID PRN anxiety #60 tabs 01/05/24 04/02/24 pantoprazole 40 mg tablet,delayed 40 mg PO BID #180 tabs 01/25/24 04/02/24 release lidocaine 5 % topical patch 1 patch topical Q24H #15 ea 01/26/24 04/02/24 (Lidoderm) fluticasone propionate 50 2 spray intranasal DAILY #9.9 grams 03/10/24 04/02/24 mcg/actuation nasal spray,suspension triamcinolone acetonide 0.1 % 1 applic topical BID #30 grams 03/10/24 04/02/24 topical cream Previous Rx's ?Medication ?Instructions ?Recorded apixaban 5 mg tablet 5 mg PO BID pulmonary embolism 05/31/23 #180 tabs epinephrine 0.3 mg/0.3 mL 0.3 mg (0.3 mL) IM ONCE #2 ea 06/02/23 injection, auto-injector (EpiPen 2-Farrukh) sertraline 100 mg tablet 200 mg (2 x 100 mg) PO DAILY #180 06/02/23 tabs famotidine 20 mg tablet 20 mg PO BID #180 tabs 11/01/23 loratadine 10 mg tablet 10 mg PO DAILY PRN allergy 12/01/23 symptoms #30 tabs risperidone 1 mg tablet 1 mg PO BID #60 tabs 12/01/23 acetaminophen 500 mg tablet 1,000 mg (2 x 500 mg) PO TID PRN 01/03/24 (Tylenol Extra Strength) pain/fever #270 tabs doxepin 10 mg capsule 10 mg PO BID itching #60 caps 01/03/24 clonazepam 1 mg tablet 1 mg PO BID PRN anxiety #60 tabs 01/05/24 pantoprazole 40 mg tablet,delayed 40 mg PO BID #180 tabs 01/25/24 release lidocaine 5 % topical patch 1 patch topical Q24H #15 ea 01/26/24 (Lidoderm) fluticasone propionate 50 2 spray intranasal DAILY #9.9 grams 03/10/24 mcg/actuation nasal spray,suspension triamcinolone acetonide 0.1 % 1 applic topical BID #30 grams 03/10/24 topical cream Allergies Allergy/AdvReac Type Severity Reaction Status Date / Time cat's claw Allergy Unknown Skin Rash Verified 04/02/24 04:48 neomycin (From Neosporin Allergy Unknown Skin Rash Verified 04/02/24 04:48 ([id number])) polymyxin B (From Neosporin Allergy Unknown Skin Rash Verified 04/02/24 04:48 ([id number])) bacitracin Allergy Skin Rash Verified 04/02/24 04:48 dog dander Allergy Skin Rash Verified 04/02/24 04:48 beer Allergy Severe Anaphylaxsi Uncoded 04/02/24 04:48 s General Stated Complaint: Orthopedic CONSTANCE: 4 Review of Systems All systems reviewed & are unremarkable except as noted in HPI and below Exam Narrative Exam Narrative: 1.Const: Well-nourished, Well-developed, appearing stated age 2.Eyes: PERRL, no conjunctival injection, and symmetrical lids. 3.ENT: Atraumatic external nose and ears. Moist MM. Neck: Symmetric, trachea midline, No thyromegaly. 4.CVS: +S1/S2, No murmurs or gallops. Peripheral pulses 2+ and equal in all extremities. Brisk capillary refill in all extremities. 5.RESP: Unlabored respiratory effort. Clear to auscultation bilaterally. No wheezes rales or rhonchi 6.GI: Soft, Nontender/Nondistended, No hepatosplenomegaly. No guarding or rebound. 7.MSK: Left hand demonstrates mild swelling over the fifth MCP. Mild tenderness there. Excellent flexion and extension of all digits. No redness or warmth. Brisk capillary refill present in all fingers. 8.Skin: Warm, Dry. No rashes or lesions. 9.Neuro: special police officer II-XII grossly intact. Sensation grossly intact, no focal neurologic deficits. 10.Psych: (AAO) x3. Appropriate mood and affect Course Vital Signs Vital signs: Respiratory Effort Normal 04/02/24 04:52 Pain Level 4 04/02/24 04:52 Medical Decision Making This is a 38-year-old male with a past medical history of debilitating anxiety, bipolar, priapism's, hereditary spherocytosis GERD, IVC filter, PEs and DVTs, pulmonary artery hypertension, esophagitis,?known gallstones, splenectomy, partial thyroidectomy, who presents today for left hand pain. History is limited as the patient is usually significantly nonverbal when he comes to the E R. However he states that left hand began hurting yesterday. He may have hit it on something. Not improved with NSAID therapy. Pain with movement. No other complaints. No numbness or tingling. Exam demonstrates mild swelling and tenderness over the left fifth MCP, brisk capillary refill, normal movement of all digits. Differential includes contusion, fracture, but no evidence to suggest cellulitis, extensor tenosynovitis, or infection. We will get an x-ray. Patient has declined Tylenol or Motrin. X-ray shows no evidence of acute fracture, but there is old fracture along the fifth metacarpal. He may have reinjured this. We will give a boxer fracture for home use. Recommend continued ice and NSAIDs. Discussed red flags for which to return. I have extensively reviewed the treatment plan and discharge instructions with the patient. I have addressed all patient concerns at this time. The patient was made aware of what symptoms to monitor for that would warrant a return to the emergency department. Discussed the plan with the patient, they demonstrate verbal understanding and agreement with our assessment and plan at this time. The documentation in this chart was dictated using [employer] dictation software. Please excuse any dictation errors. FINDINGS: BONES: No acute fracture is present.. Old 5th metacarpal fracture no bony destructive lesion is seen. JOINTS: No dislocation present. SOFT TISSUE: Mild swelling. IMPRESSION: Old fracture 5th metacarpal. No acute fracture. 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 Hyperbilirubinemia Biliary colic Essential hypertension DVT of axillary vein, acute bilateral (~02/2019) [facility] [place], bilateral (~02/2019) [facility] [place] [place] [facility]. [place] [facility] [place]; RECURRENT Tricuspid regurgitation 02/28/19 [facility] [place]; MILD TO MOD PAH (pulmonary artery hypertension) 02/28/19 [facility] [place] (MILD) Esophagitis determined by endoscopy (~05/2018) Esophageal foreign body (~05/2018) Bipolar disorder Surgical History S/P cholecystectomy 04/29/23 [facility] Surgical/Oncology. -hb H/O superior vena cava filter placement Abnormal findings on esophagogastroduodenoscopy (EGD) S/P partial thyroidectomy S/P IVC filter (~08/2019) [facility] [place] Priapism (~08/2019) 09/11/19 [facility] [place]; S/P PENILE SHUNT (AL-GHORAB) H/O hernia repair Unspecified site, repaired x3 History of splenectomy Social History Smoking/Tobacco Use Status: Never Smoking risk assessment performed?: Yes Alcohol Intake: never Drug use: Never Substance use type: does not use Housing: house Current gender identity: male Do you feel safe at home: Yes Do you feel safe in your relationship?: Yes
--- NOTE | 2024-04-02 06:17 | DI.RAD_ITS ---
Exam(s) XR HAND LT COMPLETE EXAM: XR HAND LT COMPLETE CLINICAL HISTORY: pain and swelling at 5th MCP. TECHNIQUE: 2D digital imaging was performed. Three views. COMPARISON: CR LEFT HAND COMPLETE from 10/22/2014 FINDINGS: BONES: No acute fracture is present.. Old 5th metacarpal fracture no bony destructive lesion is seen . JOINTS: No dislocation present. SOFT TISSUE: Mild swelling. IMPRESSION: Old fracture 5th metacarpal. No acute fracture. DATA REPOSITORY: RADIATION DOSE DELIVERED:
--- NOTE | 2024-04-02 07:22 | DI.VRAD_ITS ---
PROCEDURE INFORMATION: Exam: XR Left Hand Exam date and time: 04/02/2024 6:13 AM Age: 38 years old Clinical indication: Pain; Swelling; Hand; Left TECHNIQUE: Imaging protocol: Radiologic exam of the left hand. Views: 3 or more views. COMPARISON: No relevant prior studies are available for comparison. FINDINGS: Bones/joints: No fracture seen. Soft tissues: Mild soft tissue swelling about the hand and wrist. IMPRESSION: No fracture seen. Dictated and Authenticated by: Cherie Plasencia MD. Ordering:DONELL Ramirez MD
== END 2024-04-02 07:18 | disposition home or self-care (01) ==
PROVIDERS: Emergency Provider Student in an Organized Health Care Education/Training Program; PCP Family Medicine
DX: M79.642 Pain in left hand (principal); W22.8XXA Striking against or struck by other objects, initial encounter
CPT/HCPCS: 29125; 99283; 73130

== ENCOUNTER 2024-06-08 20:44 | Emergency (ER) | payer OTHER, MEDICAID, SELFPAY ==
[2024-06-08 20:48] VITALS: BP 161/65; PULSE 88; RESP 14; TEMP 36.9; O2SAT 97
--- NOTE | 2024-06-08 21:00 | ED.GENADUL_ITS ---
Discharge Plan Disposition Patient Disposition: Home Condition: Stable Discharge Details Clinical Impression: Folliculitis Primary Care Provider: José Miguel Flores ED Provider: Dewayne Felix [place] Meds and New Rx's Prescriptions: New sulfamethoxazole-trimethoprim [Bactrim DS] 800-160 mg tablet 1 tab PO BID Qty: 20 0RF Continued epinephrine [EpiPen 2-Farrukh] 0.3 mg/0.3 mL auto-injector 0.3 mg IM ONCE Qty: 2 0RF Rx Instructions: as a single dose sertraline 100 mg tablet 200 mg PO DAILY Qty: 180 3RF Rx Instructions: dose increase 06/02/23 risperidone 1 mg tablet 1 mg PO BID Qty: 60 11RF loratadine 10 mg tablet 10 mg PO DAILY PRN (Reason: allergy symptoms) Qty: 30 3RF famotidine 20 mg tablet 20 mg PO BID Qty: 180 3RF acetaminophen [Tylenol Extra Strength] 500 mg tablet 1,000 mg PO TID PRN (Reason: pain/fever) Qty: 270 4RF clonazepam 1 mg tablet 1 mg PO BID PRN (Reason: anxiety) Qty: 60 5RF pantoprazole 40 mg tablet,delayed release (DR/EC) 40 mg PO BID Qty: 180 3RF triamcinolone acetonide 0.1 % cream 1 applic topical BID Qty: 30 2RF fluticasone propionate 50 mcg/actuation spray,suspension 2 spray intranasal DAILY Qty: 9.9 5RF Rx Instructions: administer into each nostril apixaban 5 mg tablet 5 mg PO BID Qty: 180 3RF doxepin 10 mg capsule 10 mg PO BID Qty: 180 2RF lidocaine [Lidoderm] 5 % adhesive patch,medicated 1 patch Topical Q24H Qty: 15 0RF Discharge Instructions Additional Instructions: You are being treated for a bacterial infection likely causing your lesions Follow-up with your primary care provider especially if not improving in 1 to 2 weeks If you feel more ill or have new symptoms such as high fevers return to the emergency department for reevaluation. HPI General Mode of arrival: ambulatory . Date/Time Provider Initiated Documentation: 06/08/24 20:46 . Limitations to Documentation: no limitations . Information obtained by: patient . History of Present Illness 38 year old M pr esents to the emergency department with the chief complaint of rash/lesions, described as moderate, Patient started experiencing this month(s) (2) and it has been constant. No relieving factors improve symptom(s), No exacerbating factors reported . Patient notes no other symptoms.; denies fever/chills and shortness of breath. Patient did receive the following treatments prior to arrival, none Related Data Home Medications ?Medication ?Instructions ?Recorded ?Confirmed epinephrine 0.3 mg/0.3 mL 0.3 mg (0.3 mL) IM ONCE #2 ea 06/02/23 06/08/24 injection, auto-injector (EpiPen 2-Farrukh) sertraline 100 mg tablet 200 mg (2 x 100 mg) PO DAILY #180 06/02/23 06/08/24 tabs famotidine 20 mg tablet 20 mg PO BID #180 tabs 11/01/23 06/08/24 loratadine 10 mg tablet 10 mg PO DAILY PRN allergy 12/01/23 06/08/24 symptoms #30 tabs risperidone 1 mg tablet 1 mg PO BID #60 tabs 12/01/23 06/08/24 acetaminophen 500 mg tablet 1,000 mg (2 x 500 mg) PO TID PRN 01/03/24 06/08/24 (Tylenol Extra Strength) pain/fever #270 tabs clonazepam 1 mg tablet 1 mg PO BID PRN anxiety #60 tabs 01/05/24 06/08/24 pantoprazole 40 mg tablet,delayed 40 mg PO BID #180 tabs 01/25/24 06/08/24 release lidocaine 5 % topical patch 1 patch topical Q24H #15 ea 01/26/24 06/08/24 (Lidoderm) fluticasone propionate 50 2 spray intranasal DAILY #9.9 grams 03/10/24 06/08/24 mcg/actuation nasal spray,suspension triamcinolone acetonide 0.1 % 1 applic topical BID #30 grams 03/10/24 06/08/24 topical cream apixaban 5 mg tablet 5 mg PO BID pulmonary embolism 04/13/24 06/08/24 #180 tabs doxepin 10 mg capsule 10 mg PO BID itching #180 caps 04/30/24 06/08/24 sulfamethoxazole 800 1 tab PO BID #20 tabs 06/08/24 mg-trimethoprim 160 mg tablet (Bactrim DS) Previous Rx's ?Medication ?Instructions ?Recorded epinephrine 0.3 mg/0.3 mL 0.3 mg (0.3 mL) IM ONCE #2 ea 06/02/23 injection, auto-injector (EpiPen 2-Farrukh) sertraline 100 mg tablet 200 mg (2 x 100 mg) PO DAILY #180 06/02/23 tabs famotidine 20 mg tablet 20 mg PO BID #180 tabs 11/01/23 loratadine 10 mg tablet 10 mg PO DAILY PRN allergy 12/01/23 symptoms #30 tabs risperidone 1 mg tablet 1 mg PO BID #60 tabs 12/01/23 acetaminophen 500 mg tablet 1,000 mg (2 x 500 mg) PO TID PRN 01/03/24 (Tylenol Extra Strength) pain/fever #270 tabs clonazepam 1 mg tablet 1 mg PO BID PRN anxiety #60 tabs 01/05/24 pantoprazole 40 mg tablet,delayed 40 mg PO BID #180 tabs 01/25/24 release lidocaine 5 % topical patch 1 patch topical Q24H #15 ea 01/26/24 (Lidoderm) fluticasone propionate 50 2 spray intranasal DAILY #9.9 grams 03/10/24 mcg/actuation nasal spray,suspension triamcinolone acetonide 0.1 % 1 applic topical BID #30 grams 03/10/24 topical cream apixaban 5 mg tablet 5 mg PO BID pulmonary embolism 04/13/24 #180 tabs doxepin 10 mg capsule 10 mg PO BID itching #180 caps 04/30/24 sulfamethoxazole 800 1 tab PO BID #20 tabs 06/08/24 mg-trimethoprim 160 mg tablet (Bactrim DS) Allergies Allergy/AdvReac Type Severity Reaction Status Date / Time cat's claw Allergy Unknown Skin Rash Verified 06/08/24 20:52 neomycin (From Neosporin Allergy Unknown Skin Rash Verified 06/08/24 20:52 ([id number])) polymyxin B (From Neosporin Allergy Unknown Skin Rash Verified 06/08/24 20:52 ([id number])) bacitracin Allergy Skin Rash Verified 06/08/24 20:52 dog dander Allergy Skin Rash Verified 06/08/24 20:52 beer Allergy Severe Anaphylaxsi Uncoded 06/08/24 20:52 s General Stated Complaint: RashLesion CONSTANCE: 4 Review of Systems All systems reviewed & are unremarkable except as noted in HPI and below Constitutional Constitutional: Denies chills, Denies fever(s) and Denies weakness ENT Ears, Nose, Mouth, and Throat: Denies change in voice Cardiovascular Cardiovascular: Denies dyspnea Respiratory Respiratory: Denies cough and Denies dyspnea Gastrointestinal Gastrointestinal: Denies abdominal pain, Denies nausea and Denies vomiting Integumentary/Breasts Skin/Breast: Reports rash Neurologic Neurologic: Denies weakness Exam Const General: no acute distress Orientation: alert HENMT Head: normal to inspection Ears: external ears normal General nose exam: external nose normal Mouth: moist mucous membranes Eyes General: appearance normal, both eyes and all related structures Neck Neck: normal visual inspection Resp Effort & Inspection: normal respiratory effort and able to speak in complete sentences Cardio Rate: regular rate Skin Lesions: lesion noted Neuro General: patient alert and patient oriented x3 Extrem General: normal to inspection Psych Mental Status: mental status grossly normal Course Vital Signs Vital signs: Vital Signs Temperature 36.9 C 06/08/24 20:48 Pulse 88 06/08/24 20:48 Respiratory Rate 14 06/08/24 20:48 Blood Pressure 161/65 H 06/08/24 20:48 Pulse Oximetry 97 06/08/24 20:48 Temperature 36.9 C 06/08/24 20:48 Temperature Source Tympanic 06/08/24 20:48 Pulse 88 06/08/24 20:48 Respiratory Rate 14 06/08/24 20:48 Respiratory Effort Normal, Non-Labored 06/08/24 20:53 Blood Pressure 161/65 H 06/08/24 20:48 Blood Pressure Position Sitting 06/08/24 20:48 Pulse Oximetry 97 06/08/24 20:48 Oxygen Delivery Method Room Air 06/08/24 20:48 Oxygen Flow Rate 0 06/08/24 20:48 Pain Level 3 06/08/24 20:48 Medical Decision Making 38-year-old male with a history of anxiety, comes in with 2 months of lesions on his skin on his scalp. He denies any fevers or systemic symptoms. He is stable on arrival. He has numerous small pustules at the base of the hair follicles on his chest, scalp. There is no significant surrounding erythema, no mucous membrane lesions. The appearance seems consistent with likely folliculitis, will start him on Bactrim. There is no large abscess needs drainage. I recommended following up with his primary care provider if not improving and return precautions given Differential Diagnosis Differential Diagnosis: Folliculitis, cellulitis Quality:SDOH Health Related Social Needs: No Data to Display PFSH All Active Problems (Updated 06/08/24 @ 21:04 by Dewayne Felix MD) Folliculitis (Acute) Lymphocytosis (Acute) w/ smudge cells on diff Paresthesia and pain of left extremity (Acute) Coccyx disorder (Acute) Ulcer of buttock (Acute) Urinary frequency (Acute) [place] disease (Acute) Cholelithiasis without obstruction (Acute) Rt inguinal pain (Acute) Eye twitch (Acute) Cellulitis (Acute) Thyroid dysfunction (Acute) 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 Hyperbilirubinemia Biliary colic Essential hypertension DVT of axillary vein, acute bilateral (~02/2019) [facility] [place] Pulmonary embolism, bilateral (~02/2019) [facility] [place] PE Dr. Flores [facility] [place] 08/2019; RECURRENT Tricuspid regurgitation 02/28/19 [facility] [place] ECHO; MILD TO MOD PAH (pulmonary artery hypertension) 02/28/19 [facility] [place] ECHO (MILD) Esophagitis determined by endoscopy (~05/2018) Esophageal foreign body (~05/2018) Bipolar disorder Surgical History S/P cholecystectomy 04/29/23 [facility] Surgical/Oncology. -hb H/O superior vena cava filter placement Abnormal findings on esophagogastroduodenoscopy (EGD) S/P partial thyroidectomy S/P IVC filter (~08/2019) [facility] [place] Priapism (~08/2019) 09/11/19 [facility] [place]; S/P PENILE SHUNT (AL-GHORAB) H/O hernia repair Unspecified site, repaired x3 History of splenectomy Social History Smoking/Tobacco Use Status: Never Smoking risk assessment performed?: Yes Alcohol Intake: never Drug use: Never Substance use type: does not use Housing: house Current gender identity: male Do you feel safe at home: Yes Do you feel safe in your relationship?: Yes
[2024-06-08] MEDS: Sulfameth/Trimeth DS TAB 1 TAB PO (21:02)
== END 2024-06-08 21:13 | disposition home or self-care (01) ==
LOC: ER 21:07
PROVIDERS: Emergency Provider Emergency Medicine; PCP Family Medicine
DX: L73.9 Follicular disorder, unspecified (principal); I10 Essential (primary) hypertension; E89.0 Postprocedural hypothyroidism; Z86.711 Personal history of pulmonary embolism; Z86.718 Personal history of other venous thrombosis and embolism; Z79.01 Long term (current) use of anticoagulants
CPT/HCPCS: 99283

== ENCOUNTER 2024-06-12 18:14 | Emergency (ER) | payer OTHER, MEDICAID, SELFPAY ==
[2024-06-12 18:23] VITALS: BP 154/71; PULSE 77; RESP 15; TEMP 36.7; O2SAT 94
--- NOTE | 2024-06-12 18:30 | DI.CT_ITS ---
Exam(s) CT HEAD WO EXAM: CT HEAD WO CLINICAL HISTORY: headstrike, dazed - on thinners. TECHNIQUE: Imaging Protocol: Axial computed tomography images with coronal and sagittal reformatted images were created and reviewed COMPARISON: CT CT HEAD WO from 03/01/2020 FINDINGS: There are no skull fractures. There is no fluid in the visualized paranasal sinuses. There is no evidence of intracranial hemorrhage, mass effect, or shift of midline structures. There are no extra-axial fluid collections. The ventricles are not enlarged or shifted and there is no blo od within the ventricular system nor within the basal cisterns. IMPRESSION: No acute intracranial findings on this noninfused CT scan of the brain. Called by myself to ER provider 06/12/2024 at 7:08 p.m. RADIATION DOSE DELIVERED: Total DLP DATA REPOSITORY: All CT scans at this facility are submitted to the National Radiology Data Registry (NRDR) Dose Index Registry (DIR) with the [employer] ([employer]). RADIATION OPTIMIZATION: All CT scans at this facility use at least one of these dose optimization te chniques: automated exposure control; mA and/or kV adjustment per patient size (includes targeted exa ms where dose is matched to clinical indication); or iterative reconstruction.
[2024-06-12 19:26] LABS: HCT 46.8 % (40.0-50.0); HGB 15.8 g/dL (13.5-17.5); MCH 31.2 pg (27.0-33.0); MCHC 33.8 % (32.0-36.0); MCV 93 fL (80-95); MPV 9.2 fL (8.0-11.0); Platelet Count 406 10^3/uL (130-400); RBC 5.06 10^6/uL (4.36-5.78); RDW-SD 47.4 fL; WBC 10.55 10^3/uL (4.4-10.8)
--- NOTE | 2024-06-12 19:32 | ED.GENADUL_ITS ---
Discharge Plan Disposition Patient Disposition: Home Condition: Stable Discharge Details Clinical Impression: Forehead laceration, Concussion syndrome Primary Care Provider: José Miguel Flores ED Provider: James Lay Home Meds and New Rx's Prescriptions: Continued sertraline 100 mg tablet 200 mg PO DAILY Qty: 180 3RF Rx Instructions: dose increase 06/02/23 risperidone 1 mg tablet 1 mg PO BID Qty: 60 11RF loratadine 10 mg tablet 10 mg PO DAILY PRN (Reason: allergy symptoms) Qty: 30 3RF famotidine 20 mg tablet 20 mg PO BID Qty: 180 3RF acetaminophen [Tylenol Extra Strength] 500 mg tablet 1,000 mg PO TID PRN (Reason: pain/fever) Qty: 270 4RF clonazepam 1 mg tablet 1 mg PO BID PRN (Reason: anxiety) Qty: 60 5RF pantoprazole 40 mg tablet,delayed release (DR/EC) 40 mg PO BID Qty: 180 3RF triamcinolone acetonide 0.1 % cream 1 applic topical BID Qty: 30 2RF fluticasone propionate 50 mcg/actuation spray,suspension 2 spray intranasal DAILY Qty: 9.9 5RF Rx Instructions: administer into each nostril apixaban 5 mg tablet 5 mg PO BID Qty: 180 3RF doxepin 10 mg capsule 10 mg PO BID Qty: 180 2RF epinephrine [EpiPen 2-Farrukh] 0.3 mg/0.3 mL auto-injector 0.3 mg IM ONCE Qty: 2 0RF Rx Instructions: as a single dose lidocaine [Lidoderm] 5 % adhesive patch,medicated 1 patch Topical Q24H Qty: 15 0RF sulfamethoxazole-trimethoprim [Bactrim DS] 800-160 mg tablet 1 tab PO BID Qty: 20 0RF Discharge Instructions Instructions: Laceration Repair With Glue ED, Post-Concussion Syndrome ED Additional Instructions: You were seen in the emergency department for your forehead laceration from head strike on a door, you state you have not taken your blood thinners in a couple days, your CT is negative for any intracranial bleeding. I repaired this with a Steri-Strip, you can shower with this it should fall off in about 2 weeks. Please watch for signs of infection and return for such, take Tylenol as needed for headache. Please return for any deteriorating neurologic status, numbness, tingling, visual changes. Referrals: José Miguel Flores MD [Primary Care Provider] - Discharge Data Discharge Date/Time-TO BE ENTERED AT DEPARTURE: 06/12/24 20:04 HPI General Date/Time Provider Initiated Documentation: 06/12/24 18:28 . HPI Narrative: 36 year-old male presents to ED today by POV/ambulating with his uncle with a chief complaint of L forehead laceration from a door, severe headache, normally on Eliquis but hasn't taken it in a few days with onset just prior to arrival, patient is mentating at baseline. Quality described as severe left-sided headache, photophobia, no radiation to active bleeding, loss of vision, blurry vision, tinnitus, neck pain, LOC. Severity is described as severe. Palliating factors include nothing specific. Provoking factors include nothing specific. Patient not anticoagulated. Related Data Home Medications ?Medication ?Instructions ?Recorded ?Confirmed sertraline 100 mg tablet 200 mg (2 x 100 mg) PO DAILY #180 06/02/23 06/13/24 tabs famotidine 20 mg tablet 20 mg PO BID #180 tabs 11/01/23 06/13/24 loratadine 10 mg tablet 10 mg PO DAILY PRN allergy 12/01/23 06/13/24 symptoms #30 tabs risperidone 1 mg tablet 1 mg PO BID #60 tabs 12/01/23 06/13/24 acetaminophen 500 mg tablet 1,000 mg (2 x 500 mg) PO TID PRN 01/03/24 06/13/24 (Tylenol Extra Strength) pain/fever #270 tabs clonazepam 1 mg tablet 1 mg PO BID PRN anxiety #60 tabs 01/05/24 06/13/24 pantoprazole 40 mg tablet,delayed 40 mg PO BID #180 tabs 01/25/24 06/13/24 release lidocaine 5 % topical patch 1 patch topical Q24H #15 ea 01/26/24 06/13/24 (Lidoderm) fluticasone propionate 50 2 spray intranasal DAILY #9.9 grams 03/10/24 06/13/24 mcg/actuation nasal spray,suspension triamcinolone acetonide 0.1 % 1 applic topical BID #30 grams 03/10/24 06/13/24 topical cream apixaban 5 mg tablet 5 mg PO BID pulmonary embolism 04/13/24 06/13/24 #180 tabs doxepin 10 mg capsule 10 mg PO BID itching #180 caps 04/30/24 06/13/24 sulfamethoxazole 800 1 tab PO BID #20 tabs 06/08/24 06/13/24 mg-trimethoprim 160 mg tablet (Bactrim DS) epinephrine 0.3 mg/0.3 mL 0.3 mg (0.3 mL) IM ONCE #2 ea 06/09/24 06/13/24 injection, auto-injector (EpiPen 2-Farrukh) Previous Rx's ?Medication ?Instructions ?Recorded sertraline 100 mg tablet 200 mg (2 x 100 mg) PO DAILY #180 06/02/23 tabs famotidine 20 mg tablet 20 mg PO BID #180 tabs 11/01/23 loratadine 10 mg tablet 10 mg PO DAILY PRN allergy 12/01/23 symptoms #30 tabs risperidone 1 mg tablet 1 mg PO BID #60 tabs 12/01/23 acetaminophen 500 mg tablet 1,000 mg (2 x 500 mg) PO TID PRN 01/03/24 (Tylenol Extra Strength) pain/fever #270 tabs clonazepam 1 mg tablet 1 mg PO BID PRN anxiety #60 tabs 01/05/24 pantoprazole 40 mg tablet,delayed 40 mg PO BID #180 tabs 01/25/24 release lidocaine 5 % topical patch 1 patch topical Q24H #15 ea 01/26/24 (Lidoderm) fluticasone propionate 50 2 spray intranasal DAILY #9.9 grams 03/10/24 mcg/actuation nasal spray,suspension triamcinolone acetonide 0.1 % 1 applic topical BID #30 grams 03/10/24 topical cream apixaban 5 mg tablet 5 mg PO BID pulmonary embolism 04/13/24 #180 tabs doxepin 10 mg capsule 10 mg PO BID itching #180 caps 04/30/24 sulfamethoxazole 800 1 tab PO BID #20 tabs 06/08/24 mg-trimethoprim 160 mg tablet (Bactrim DS) epinephrine 0.3 mg/0.3 mL 0.3 mg (0.3 mL) IM ONCE #2 ea 06/09/24 injection, auto-injector (EpiPen 2-Farrukh) Allergies Allergy/AdvReac Type Severity Reaction Status Date / Time cat's claw Allergy Unknown Skin Rash Verified 06/12/24 18:27 neomycin (From Neosporin Allergy Unknown Skin Rash Verified 06/12/24 18:27 ([id number])) polymyxin B (From Neosporin Allergy Unknown Skin Rash Verified 06/12/24 18:27 ([id number])) bacitracin Allergy Skin Rash Verified 06/12/24 18:27 dog dander Allergy Skin Rash Verified 06/12/24 18:27 beer Allergy Severe Anaphylaxsi Uncoded 06/12/24 18:27 s General Stated Complaint: HeadInjury CONSTANCE: 3 Review of Systems All systems reviewed & are unremarkable except as noted in HPI and below Exam Narrative Exam Narrative: GENERAL APPEARANCE: Well-nourished, non-toxic, awake and alert, atraumatic, no acute distress. SKIN: Warm, pink, dry, 0.5cm vertical linear laceration in L eyebrow HEAD: Normocephalic, atraumatic- no periorbital ecchymosis, no recinos's sign, normal hair distribution for gender/age. EYES: Normal conjunctiva, no exudates on lids/lashes. ENT: Nares patent, no circumoral cyanosis, no facial swelling NECK: Supple, trachea midline, painless cervical ROM. LUNGS/CHEST: Lungs CTA bilaterally- no rhonchi/rales/wheezes diffusely, non- labored respirations, normal A/P diameter, symmetrical expansion, no chest wall deformity HEART (CV/PV): Regular rate and rhythm without murmur, no peripheral edema, no JVD. ABDOMEN: Soft, non-distended, no guarding. MSK: Normal ROM, no swelling/deformity to bilateral UEs or LEs, moving all extremities without weakness, no cyanosis, spine midline without tenderness, normal curvature. NEURO: Mental Status AAOx4 - alert to person, place, time, events No facial droop, no forehead involvement. Motor: No focal weakness - strength 5/5 in bilateral UEs and LEs, proximal and distal, symmetric. Sensory: sensation intact to light touch globally. Gait normal: patient ambulated without ataxia into ED room. PSYCH: euthymic, cooperative, pleasant, appropriate speech Course Vital Signs Vital signs: Vital Signs Temperature 36.7 C 06/12/24 18:23 Pulse 77 06/12/24 18:23 Respiratory Rate 15 06/12/24 18:23 Blood Pressure 154/71 H 06/12/24 18:23 Pulse Oximetry 94 06/12/24 18:23 Temperature 36.7 C 06/12/24 18:23 Pulse 77 06/12/24 18:23 Respiratory Rate 15 06/12/24 18:23 Respiratory Effort Normal, Non-Labored 06/12/24 19:16 Respiratory Depth Normal 06/12/24 19:16 Respiratory Pattern Normal 06/12/24 19:16 Blood Pressure 154/71 H 06/12/24 18:23 Blood Pressure Position Sitting 06/12/24 18:23 Pulse Oximetry 94 06/12/24 18:23 Oxygen Delivery Method Room Air 06/12/24 18:23 Oxygen Flow Rate 0 06/12/24 18:23 Pain Level 4 06/12/24 19:16 Procedures Laceration Laceration 1: Site: face Side (If applicable): left Size (cm): 0.5 Description: linear Depth: simple, single layer Skin layer closed with: other (1 steri-strip) Medical Decision Making This dictation utilizes [id number] dictation software and may contain unedited grammatical errors. 36 year-old male presents to ED today by POV/ambulating with his uncle with a chief complaint of L forehead laceration from a door, severe headache, normally on Eliquis but hasn't taken it in a few days with onset just prior to arrival, patient is mentating at baseline. Quality described as severe left-sided headache, photophobia, no radiation to active bleeding, loss of vision, blurry vision, tinnitus, neck pain, LOC. Severity is described as severe. Palliating factors include nothing specific. Provoking factors include nothing specific. 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 Family and social history: Noncontributory. Pertinent exam findings / vital signs include 0.5 cm vertical linear forehead laceration left eyebrow, no other signs of major head trauma, mentating at baseline. Differential / pathologies of concern include intracranial hemorrhage, laceration, concussion syndrome. Diagnostic studies of: -CT head without contrast- no ICH -CBC, CMP, type and screen, PT/PTT, no acute lab abnormalities Interventions of: -Steri-Strip repair. ED Course/Assessment/Plan: 38-year-old male with history of splenectomy and thrombocytosis presents with head strike on the door with a minor laceration to left eyebrow is not actively bleeding, he is not taking his blood thinner in a few days, CT head is negative for any acute intracranial bleeding, I repaired the laceration with Steri-Strip repair and counseled on strict return criteria for any neurologic changes as well as signs of infection to laceration, patient and patient's uncle verbalized understanding of plan. Findings not consistent with intracranial hemorrhage, complex laceration, neck injury. Disposition of concussion syndrome, forehead laceration. Patient verbalized understanding of the plan and return to ED criteria and engaged in shared decision making. Medical Records Medical records reviewed: Yes I reviewed the patient's medical records. Imaging Data Radiologic Study: Attestation: I personally reviewed and interpreted this imaging study as follows: Imaging: CT Scan Radiologist's impression: EXAM: CT HEAD WO CLINICAL HISTORY: headstrike, dazed - on thinners. TECHNIQUE: Imaging Protocol: Axial computed tomography images with coronal and sagittal reformatted images were created and reviewed COMPARISON: CT CT HEAD WO from 03/01/2020 FINDINGS: There are no skull fractures. There is no fluid in the visualized paranasal sinuses. There is no evidence of intracranial hemorrhage, mass effect, or shift of midline structures. There are no extra-axial fluid collections. The ventricles are not enlarged or shifted and there is no blood within the ventricular system nor within the basal cisterns. IMPRESSION: No acute intracranial findings on this noninfused CT scan of the brain. Lab Data Lab results reviewed: Yes I reviewed the patient's lab results. Labs: Laboratory Tests Range/Units 06/12/24 06/12/24 19:12 19:22 WBC (4.4-10.8) 10^3/uL 10.55 RBC (4.36-5.78) 10^6/uL 5.06 Hgb (13.5-17.5) g/dL 15.8 Hct (40.0-50.0) % 46.8 MCV (80-95) fL 93 MCH (27.0-33.0) pg 31.2 MCHC (32.0-36.0) % 33.8 RDW (11.8-14.1) % 14.0 Plt Count (130-400) 10^3/uL 406 H MPV (8.0-11.0) fL 9.2 Immature Gran % % 0.0 Neutrophils % % 34.0 Lymphocytes % % 38.0 Atypical Lymphs % % 13 Monocytes % % 13.0 Eosinophils % % 1.0 Basophils % % 1.0 Nucleated RBC % (0.0-0.3) % 0.0 Absolute Neutrophils (1.2-6.7) 10^3/uL 3.59 Absolute Lymphocytes (1.2-3.4) 10^3/uL 5.38 H Absolute Monocytes (0.1-0.8) 10^3/uL 1.37 H Absolute Eosinophils (0.0-0.7) 10^3/uL 0.11 Absolute Basophils (0.0-0.2) 10^3/uL 0.11 RBC Morphology See Below Poikilocytosis 1+ PT (9.1-11.1) sec 10.8 INR (0.9-1.1) 1.1 APTT (23.6-32.8) sec 24.5 Sodium (136-145) mmol/L 140 Potassium (3.5-5.1) mmol/L 3.6 Chloride (98-107) mmol/L 104 Carbon Dioxide (21.0-32.0) mmol/L 27.8 Anion Gap (3-11) mmol/L 8.2 BUN (7-18) mg/dL 26 H Creatinine (0.70-1.30) mg/dL 1.2 Est GFR (CKD-EPI 2020) (mL/min/1.73m2) 78.89 Glucose (74-106) mg/dL 104 Calcium (8.5-10.1) mg/dL 9.0 Total Bilirubin (0.2-1.0) mg/dL 1.94 H AST (15-37) U/L 46 H ALT (16-63) U/L 40 Alkaline Phosphatase (46-116) U/L 74 Total Protein (6.4-8.2) g/dL 7.9 Albumin (3.4-5.0) g/dL 3.9 ABO/Rh O Positive Antibody Screen NEGATIVE Quality:SDOH Health Related Social Needs: No Data to Display PFSH All Active Problems (Updated 06/12/24 @ 19:44 by JORGE Longo) Concussion syndrome (Acute) Forehead laceration (Acute) Folliculitis (Acute) Lymphocytosis (Acute) w/ smudge cells on diff Paresthesia and pain of left extremity (Acute) Coccyx disorder (Acute) Ulcer of buttock (Acute) Urinary frequency (Acute) [place] disease (Acute) Cholelithiasis without obstruction (Acute) Rt inguinal pain (Acute) Eye twitch (Acute) Cellulitis (Acute) Thyroid dysfunction (Acute) Elevated bilirubin (Chronic) chronic since 2008- 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 Hyperbilirubinemia Biliary colic Essential hypertension DVT of axillary vein, acute bilateral (~02/2019) [facility] [place]monary embolism, bilateral (~02/2019) [facility] [place] [facility]. Flores [facility] [place] 08/2019; RECURRENT Tricuspid regurgitation 02/28/19 [facility] [place] ECHO; MILD TO MOD PAH (pulmonary artery hypertension) 02/28/19 [facility] [place] ECHO (MILD) Esophagitis determined by endoscopy (~05/2018) Esophageal foreign body (~05/2018) Bipolar disorder Surgical History S/P cholecystectomy 04/29/23 [facility] Surgical/Oncology. -hb H/O superior vena cava filter placement Abnormal findings on esophagogastroduodenoscopy (EGD) S/P partial thyroidectomy S/P IVC filter (~08/2019) [facility] [place] Priapism (~08/2019) 09/11/19 [facility] [place]; S/P PENILE SHUNT (AL-GHORAB) H/O hernia repair Unspecified site, repaired x3 History of splenectomy Social History Smoking/Tobacco Use Status: Never Smoking risk assessment performed?: Yes Alcohol Intake: never Drug use: Never Substance use type: does not use Housing: house Current gender identity: male Do you feel safe at home: Yes Do you feel safe in your relationship?: Yes
[2024-06-12 19:36] LABS: INR 1.1 (0.9-1.1); PTT Activated 24.5 sec (23.6-32.8); Prothrombin Time 10.8 sec (9.1-11.1)
[2024-06-12 19:49] LABS: ALT 40 U/L (16-63); AST 46 U/L (15-37); Albumin 3.9 g/dL (3.4-5.0); Alkaline Phosphatase 74 U/L (46-116); Anion Gap 8.2 mmol/L (3-11); BUN 26 mg/dL (7-18); Bilirubin, Total 1.94 mg/dL (0.2-1.0); CO2 27.8 mmol/L (21.0-32.0); CREATININE 1.2 mg/dL (0.70-1.30); Chloride 104 mmol/L (98-107); Estimated GFR 78.89 (mL/min/1.73m2); Glucose 104 mg/dL (74-106); Potassium 3.6 mmol/L (3.5-5.1); Sodium 140 mmol/L (136-145); Total Protein 7.9 g/dL (6.4-8.2)
[2024-06-12 19:51] LABS: Absolute Basophil Count 0.11 10^3/uL (0.0-0.2); Absolute Eosinophil Count 0.11 10^3/uL (0.0-0.7); Absolute Monocyte Count 1.37 10^3/uL (0.1-0.8); Absolute Neutrophil Count 3.59 10^3/uL (1.2-6.7); Atypical Lymphocytes % 13 %
[2024-06-12 19:52] LABS: Absolute Lymphocyte Count 5.38 10^3/uL (1.2-3.4); Diff Comment Manual Differential; Poikilocytes 1+
== END 2024-06-12 20:04 | disposition home or self-care (01) ==
PROVIDERS: Emergency Provider Physician Assistant; PCP Family Medicine
DX: S01.81XA Laceration without foreign body of other part of head, initial encounter (principal); S06.0X0A Concussion without loss of consciousness, initial encounter; W22.8XXA Striking against or struck by other objects, initial encounter; Y93.89 Activity, other specified; Y92.89 Other specified places as the place of occurrence of the external cause
CPT/HCPCS: 36415; 80053; 86850; 86900; 86901; 99284; 70450; 85025; 85610; 85730

== ENCOUNTER 2024-07-05 00:09 | Emergency (ER) | payer MEDICARE, MEDICAID, SELFPAY ==
--- NOTE | 2024-07-05 00:12 | ED.GENADUL_ITS ---
Discharge Plan Disposition Patient Disposition: Home Condition: Good Discharge Details Clinical Impression: Rash and nonspecific skin eruption Primary Care Provider: José Miguel Flores ED Provider: Guille Saldaña Almo Meds and New Rx's Prescriptions: Continued sertraline 100 mg tablet 200 mg PO DAILY Qty: 180 3RF Rx Instructions: dose increase 06/02/23 risperidone 1 mg tablet 1 mg PO BID Qty: 60 11RF loratadine 10 mg tablet 10 mg PO DAILY PRN (Reason: allergy symptoms) Qty: 30 3RF famotidine 20 mg tablet 20 mg PO BID Qty: 180 3RF acetaminophen [Tylenol Extra Strength] 500 mg tablet 1,000 mg PO TID PRN (Reason: pain/fever) Qty: 270 4RF clonazepam 1 mg tablet 1 mg PO BID PRN (Reason: anxiety) Qty: 60 5RF pantoprazole 40 mg tablet,delayed release (DR/EC) 40 mg PO BID Qty: 180 3RF triamcinolone acetonide 0.1 % cream 1 applic topical BID Qty: 30 2RF fluticasone propionate 50 mcg/actuation spray,suspension 2 spray intranasal DAILY Qty: 9.9 5RF Rx Instructions: administer into each nostril apixaban 5 mg tablet 5 mg PO BID Qty: 180 3RF doxepin 10 mg capsule 10 mg PO BID Qty: 180 2RF epinephrine [EpiPen 2-Farrukh] 0.3 mg/0.3 mL auto-injector 0.3 mg IM ONCE Qty: 2 0RF Rx Instructions: as a single dose Discharge Instructions Additional Instructions: You were seen for diffuse rash across the forehead which is since resolved on arrival to the ED. Possibly related to something that you would recently come into contact with. The other small chronic eruptions are related to folliculitis but are not acutely infected at this time. Using a good facial fur dry cleaner once or twice a day may help. Follow-up with your primary care physician. Return to ED for any persistent generalized rash, fever, difficulty breathing, other concerns. Referrals: José Miguel Flores MD [Primary Care Provider] - [facility] General Mode of arrival: ambulatory . Date/Time Provider Initiated Documentation: 07/05/24 00:12 . Limitations to Documentation: no limitations . Information obtained by: patient and RN notes reviewed . HPI Narrative: Patient presents to ED due to a rash across his forehead earlier this evening. He did take pictures of it. It is completely resolved at this time. 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 Does not think it was pruritic in nature. Continues to have small red bumps along his cheeks, side of his face which have been there for some time. Seen earlier in the month and placed on Bactrim because of some pustules on the left side of his face related to the smaller bumps. Had no difficulty breathing. Had no rash elsewhere. Related Data Home Medications ?Medication ?Instructions ?Recorded ?Confirmed sertraline 100 mg tablet 200 mg (2 x 100 mg) PO DAILY #180 06/02/23 07/05/24 tabs famotidine 20 mg tablet 20 mg PO BID #180 tabs 11/01/23 07/05/24 loratadine 10 mg tablet 10 mg PO DAILY PRN allergy 12/01/23 07/05/24 symptoms #30 tabs risperidone 1 mg tablet 1 mg PO BID #60 tabs 12/01/23 07/05/24 acetaminophen 500 mg tablet 1,000 mg (2 x 500 mg) PO TID PRN 01/03/24 07/05/24 (Tylenol Extra Strength) pain/fever #270 tabs clonazepam 1 mg tablet 1 mg PO BID PRN anxiety #60 tabs 01/05/24 07/05/24 pantoprazole 40 mg tablet,delayed 40 mg PO BID #180 tabs 01/25/24 07/05/24 release fluticasone propionate 50 2 spray intranasal DAILY #9.9 grams 03/10/24 07/05/24 mcg/actuation nasal spray,suspension triamcinolone acetonide 0.1 % 1 applic topical BID #30 grams 03/10/24 07/05/24 topical cream apixaban 5 mg tablet 5 mg PO BID pulmonary embolism 04/13/24 07/05/24 #180 tabs doxepin 10 mg capsule 10 mg PO BID itching #180 caps 04/30/24 07/05/24 epinephrine 0.3 mg/0.3 mL 0.3 mg (0.3 mL) IM ONCE #2 ea 06/09/24 07/05/24 injection, auto-injector (EpiPen 2-Farrukh) Previous Rx's ?Medication ?Instructions ?Recorded sertraline 100 mg tablet 200 mg (2 x 100 mg) PO DAILY #180 06/02/23 tabs famotidine 20 mg tablet 20 mg PO BID #180 tabs 11/01/23 loratadine 10 mg tablet 10 mg PO DAILY PRN allergy 12/01/23 symptoms #30 tabs risperidone 1 mg tablet 1 mg PO BID #60 tabs 12/01/23 acetaminophen 500 mg tablet 1,000 mg (2 x 500 mg) PO TID PRN 01/03/24 (Tylenol Extra Strength) pain/fever #270 tabs clonazepam 1 mg tablet 1 mg PO BID PRN anxiety #60 tabs 01/05/24 pantoprazole 40 mg tablet,delayed 40 mg PO BID #180 tabs 01/25/24 release fluticasone propionate 50 2 spray intranasal DAILY #9.9 grams 03/10/24 mcg/actuation nasal spray,suspension triamcinolone acetonide 0.1 % 1 applic topical BID #30 grams 03/10/24 topical cream apixaban 5 mg tablet 5 mg PO BID pulmonary embolism 04/13/24 #180 tabs doxepin 10 mg capsule 10 mg PO BID itching #180 caps 04/30/24 epinephrine 0.3 mg/0.3 mL 0.3 mg (0.3 mL) IM ONCE #2 ea 06/09/24 injection, auto-injector (EpiPen 2-Farrukh) Allergies Allergy/AdvReac Type Severity Reaction Status Date / Time cat's claw Allergy Unknown Skin Rash Verified 07/05/24 00:15 neomycin (From Neosporin Allergy Unknown Skin Rash Verified 07/05/24 00:15 ([id number])) polymyxin B (From Neosporin Allergy Unknown Skin Rash Verified 07/05/24 00:15 ([id number])) bacitracin Allergy Skin Rash Verified 07/05/24 00:15 dog dander Allergy Skin Rash Verified 07/05/24 00:15 beer Allergy Severe Anaphylaxsi Uncoded 07/05/24 00:15 s General CONSTANCE: 3 Review of Systems Narrative: Per HPI Exam Narrative Exam Narrative: Const: WDWN male in NAD. VS per triage. HEENT: NC/AT. Normal facial exam. Neck: Supple. Trachea midline. Lungs: Normal respiratory effort. Neuro: A+O x 3. Normal speech, mentation, gait. Cranial nerves II - XII grossly intact. No gross motor or sensory deficit. Skin: No hives, erythema, rash noted. Scattered pinpoint raised bumps along del real/hair line consistent with mild folliculitis. No vesicles/pustules. Medical Decision Making Patient presenting because of an erythematous forehead skin rash which is since resolved completely. Pictures that he had taken of it would suggest a probable contact reaction. Complains of these small pimple areas on his face that have been there for at least a year. These are consistent with very mild follicu litis without pustule. Recommend using a good facial fur dry cleaner once to twice a day and if this does not help can follow-up with primary care. Discharged home with return precautions. 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 Hyperbilirubinemia Essential hypertension DVT of axillary vein, acute bilateral (~02/2019) [facility] [place] Pulmonary embolism, bilateral (~02/2019) [facility] [place] PE Dr. Flores [facility] [place] 08/2019; RECURRENT Tricuspid regurgitation 02/28/19 [facility] [place] ECHO; MILD TO MOD PAH (pulmonary artery hypertension) 02/28/19 [facility] [place] ECHO (MILD) Esophagitis determined by endoscopy (~05/2018) Esophageal foreign body (~05/2018) Bipolar disorder Surgical History S/P cholecystectomy 04/29/23 [facility] Surgical/Oncology. -hb H/O superior vena cava filter placement Abnormal findings on esophagogastroduodenoscopy (EGD) S/P partial thyroidectomy S/P IVC filter (~08/2019) [facility] [place] Priapism (~08/2019) 09/11/19 [facility] [place]; S/P PENILE SHUNT (AL-GHORAB) H/O hernia repair Unspecified site, repaired x3 History of splenectomy Social History Smoking/Tobacco Use Status: Never Smoking risk assessment performed?: Yes Alcohol Intake: never Drug use: Never Substance use type: does not use Housing: house Current gender identity: male Do you feel safe at home: Yes Do you feel safe in your relationship?: Yes
[2024-07-05 00:17] VITALS: BP 128/95; PULSE 78; RESP 21; TEMP 36.7; O2SAT 97
== END 2024-07-05 01:14 | disposition home or self-care (01) ==
LOC: ER 00:32
PROVIDERS: Emergency Provider Emergency Medicine; PCP Family Medicine
DX: R21 Rash and other nonspecific skin eruption (principal); I10 Essential (primary) hypertension; Z86.718 Personal history of other venous thrombosis and embolism; Z86.711 Personal history of pulmonary embolism; Z79.01 Long term (current) use of anticoagulants
CPT/HCPCS: 99283

== ENCOUNTER 2024-07-09 12:10 | Emergency (ER) | payer MEDICARE, MEDICAID, SELFPAY ==
[2024-07-09 12:28] VITALS: BP 145/74; PULSE 77; RESP 18; TEMP 36.8; O2SAT 98
--- NOTE | 2024-07-09 13:08 | ED.GENADUL_ITS ---
Discharge Plan Disposition Patient Disposition: Home Condition: Stable Discharge Details Clinical Impression: Pain, dental, Dental infection Primary Care Provider: José Miguel Flores ED Provider: Lyla Vinson Alexander Meds and New Rx's Prescriptions: New amoxicillin-pot clavulanate 875-125 mg tablet 1 tab PO BID 5 Days Qty: 10 0RF oxycodone 5 mg tablet 5 mg PO TID PRN (Reason: pain) Qty: 5 0RF Continued sertraline 100 mg tablet 200 mg PO DAILY Qty: 180 3RF Rx Instructions: dose increase 06/02/23 risperidone 1 mg tablet 1 mg PO BID Qty: 60 11RF loratadine 10 mg tablet 10 mg PO DAILY PRN (Reason: allergy symptoms) Qty: 30 3RF famotidine 20 mg tablet 20 mg PO BID Qty: 180 3RF acetaminophen [Tylenol Extra Strength] 500 mg tablet 1,000 mg PO TID PRN (Reason: pain/fever) Qty: 270 4RF clonazepam 1 mg tablet 1 mg PO BID PRN (Reason: anxiety) Qty: 60 5RF pantoprazole 40 mg tablet,delayed release (DR/EC) 40 mg PO BID Qty: 180 3RF triamcinolone acetonide 0.1 % cream 1 applic topical BID Qty: 30 2RF fluticasone propionate 50 mcg/actuation spray,suspension 2 spray intranasal DAILY Qty: 9.9 5RF Rx Instructions: administer into each nostril apixaban 5 mg tablet 5 mg PO BID Qty: 180 3RF doxepin 10 mg capsule 10 mg PO BID Qty: 180 2RF epinephrine [EpiPen 2-Farrukh] 0.3 mg/0.3 mL auto-injector 0.3 mg IM ONCE Qty: 2 0RF Rx Instructions: as a single dose chlorhexidine gluconate [Paroex Oral Rinse] 0.12 % mouthwash 15 ml mucous membrane DAILY Discharge Instructions Instructions: Dental Pain ED Additional Instructions: Labs and imaging are reassuring here today. As we discussed, I am concerned that you may be developing an infection. Please take the antibiotics as prescribed. Please take the entire course. Please also call your dentist tomorrow to see if they can get you in for reevaluation within the next 2 days. Please continue with the Tylenol but no more than 4000 mg daily. You may also use heat or ice to help with discomfort. You may use the oxycodone as prescribed. Please not drink alcohol or drive while using this medication and keep in a safe place. If you develop any new or worsening symptoms please seek care urgently once again Referrals: José Miguel Flores MD [Primary Care Provider] - Discharge Data Discharge Date/Time-TO BE ENTERED AT DEPARTURE: 07/09/24 15:52 HPI General Date/Time Provider Initiated Documentation: 07/09/24 13:08 . Limitations to Documentation: no limitations . Information obtained by: patient and RN notes reviewed . History of Present Illness 38 year old M presents to the emergency department with the chief complaint of dental pain after extraction, described as severe, Quality is described as stabbing, and is localized to the head and mouth. Patient started experiencing this day(s) and it has been constant. No relieving factors improve symptom(s), No exacerbating factors reported . Patient notes headaches and loss of appetite; denies cough, diaphoresis, fever/chills, rash and shortness of breath. Patient did receive the following treatments prior to arrival, other (APAP) Related Data Home Medications ?Medication ?Instructions ?Recorded ?Confirmed sertraline 100 mg tablet 200 mg (2 x 100 mg) PO DAILY #180 06/02/23 07/09/24 tabs famotidine 20 mg tablet 20 mg PO BID #180 tabs 11/01/23 07/09/24 loratadine 10 mg tablet 10 mg PO DAILY PRN allergy 12/01/23 07/09/24 symptoms #30 tabs risperidone 1 mg tablet 1 mg PO BID #60 tabs 12/01/23 07/09/24 acetaminophen 500 mg tablet 1,000 mg (2 x 500 mg) PO TID PRN 01/03/24 07/09/24 (Tylenol Extra Strength) pain/fever #270 tabs clonazepam 1 mg tablet 1 mg PO BID PRN anxiety #60 tabs 01/05/24 07/09/24 pantoprazole 40 mg tablet,delayed 40 mg PO BID #180 tabs 01/25/24 07/09/24 release fluticasone propionate 50 2 spray intranasal DAILY #9.9 grams 03/10/24 07/09/24 mcg/actuation nasal spray,suspension triamcinolone acetonide 0.1 % 1 applic topical BID #30 grams 03/10/24 07/09/24 topical cream apixaban 5 mg tablet 5 mg PO BID pulmonary embolism 04/13/24 07/09/24 #180 tabs doxepin 10 mg capsule 10 mg PO BID itching #180 caps 04/30/24 07/09/24 epinephrine 0.3 mg/0.3 mL 0.3 mg (0.3 mL) IM ONCE #2 ea 06/09/24 07/09/24 injection, auto-injector (EpiPen 2-Frarukh) amoxicillin 875 mg-potassium 1 tab PO BID 5 days #10 tabs 07/09/24 clavulanate 125 mg tablet chlorhexidine gluconate 0.12 % 15 ml mucous membrane DAILY 07/09/24 07/09/24 mouthwash (Paroex Oral Rinse) oxycodone 5 mg tablet 5 mg PO TID PRN pain #5 tabs 07/09/24 Previous Rx's ?Medication ?Instructions ?Recorded sertraline 100 mg tablet 200 mg (2 x 100 mg) PO DAILY #180 06/02/23 tabs famotidine 20 mg tablet 20 mg PO BID #180 tabs 11/01/23 loratadine 10 mg tablet 10 mg PO DAILY PRN allergy 12/01/23 symptoms #30 tabs risperidone 1 mg tablet 1 mg PO BID #60 tabs 12/01/23 acetaminophen 500 mg tablet 1,000 mg (2 x 500 mg) PO TID PRN 01/03/24 (Tylenol Extra Strength) pain/fever #270 tabs clonazepam 1 mg tablet 1 mg PO BID PRN anxiety #60 tabs 01/05/24 pantoprazole 40 mg tablet,delayed 40 mg PO BID #180 tabs 01/25/24 release fluticasone propionate 50 2 spray intranasal DAILY #9.9 grams 03/10/24 mcg/actuation nasal spray,suspension triamcinolone acetonide 0.1 % 1 applic topical BID #30 grams 03/10/24 topical cream apixaban 5 mg tablet 5 mg PO BID pulmonary embolism 04/13/24 #180 tabs doxepin 10 mg capsule 10 mg PO BID itching #180 caps 04/30/24 epinephrine 0.3 mg/0.3 mL 0.3 mg (0.3 mL) IM ONCE #2 ea 06/09/24 injection, auto-injector (EpiPen 2-Farrukh) amoxicillin 875 mg-potassium 1 tab PO BID 5 days #10 tabs 07/09/24 clavulanate 125 mg tablet oxycodone 5 mg tablet 5 mg PO TID PRN pain #5 tabs 07/09/24 Allergies Allergy/AdvReac Type Severity Reaction Status Date / Time cat's claw Allergy Unknown Skin Rash Verified 07/09/24 12:30 neomycin (From Neosporin Allergy Unknown Skin Rash Verified 07/09/24 12:30 ([id number])) polymyxin B (From Neosporin Allergy Unknown Skin Rash Verified 07/09/24 12:30 ([id number])) bacitracin Allergy Skin Rash Verified 07/09/24 12:30 dog dander Allergy Skin Rash Verified 07/09/24 12:30 beer Allergy Severe Anaphylaxsi Uncoded 07/09/24 12:30 s General Stated Complaint: DentalOral CONSTANCE: 4 Review of Systems Constitutional Constitutional: Reports as per HPI, Denies chills and Denies fever(s) Eyes Eyes: Denies change in vision and Denies irritation ENT Ears, Nose, Mouth, and Throat: Reports as per HPI, Reports dental pain, Denies dysphagia, Denies dizziness, Denies dry mouth, Denies ear discharge, Denies otalgia, Reports facial pain, Denies hoarseness, Denies odynophagia and Denies sore throat Cardiovascular Cardiovascular: Reports as per HPI and Denies chest pain Respiratory Respiratory: Reports as per HPI and Denies cough Gastrointestinal Gastrointestinal: Reports as per HPI, Denies dysphagia, Denies nausea, Denies odynophagia and Denies vomiting Integumentary/Breasts Skin/Breast: Reports as per HPI, Denies erythema, Denies rash and Denies skin pain Neurologic Neurologic: Reports as per HPI and Denies dizziness Exam Const General: cooperative, healthy appearing, uncomfortable, no acute distress, well developed, well groomed and anxious Nutritional Appearance: average body habitus and well nourished Orientation: alert and awake [facility] Head: normal to inspection, normocephalic and atraumatic Ears: external ears normal and TM's normal bilaterally General nose exam: external nose normal and nares normal Face and sinus: normal facial exam, sinuses nontender and face symmetric Throat: posterior oropharynx normal, tonsils normal and uvula midline Eyes General: appearance normal, both eyes and all related structures Neck Neck: normal visual inspection, full ROM, no lymphadenopathy, no meningeal signs, supple and no anterior neck swelling Resp Effort & Inspection: normal respiratory effort, able to speak in complete sentences and no respiratory distress Auscultation: clear to auscultation bilaterally, no rales, no rhonchi and no wheezes Cardio Rate: regular rate Rhythm: regular rhythm Heart Sounds: S1 normal and S2 normal Skin General skin exam: no rashes or lesions noted Trauma: no lacerations or abrasions Neuro General: patient alert and patient awake Cognition: normal cognition Speech: speech normal Gait: normal gait Course Vital Signs Vital signs: Vital Signs Temperature 36.8 C 07/09/24 12:28 Pulse 77 07/09/24 12:28 Respiratory Rate 18 07/09/24 12:28 Blood Pressure 145/74 H 07/09/24 12:28 Pulse Oximetry 98 07/09/24 12:28 Temperature 36.8 C 07/09/24 12:28 Pulse 77 07/09/24 12:28 Respiratory Rate 18 07/09/24 12:28 Blood Pressure 145/74 H 07/09/24 12:28 Pulse Oximetry 98 07/09/24 12:28 Pain Level 9 07/09/24 12:28 Medical Decision Making Patient is a pleasant 38-year-old male, well-known to myself and apartment, past medical history significant for being hypercoagulable, hypertension, DVT, PE, tricuspid regurg, pulmonary artery hypertension, bipolar, significant anxiety, presenting today with chief complaint of dental pain now radiating to the left eye and head. Patient reports that 5 days ago he underwent dental surgery and had his wisdom tooth taken out on the left side. But 2 days after that pain really began to increase make it difficult for him to do much her function but pain is now starting to radiate up towards the left eye as well as in the head. He has not had any fevers or chills. He denies the pain going into his neck or down further into his spine. No visual changes although he does endorse some photophobia. No nausea or vomiting still has been drinking but has limited movement of the mouth due to pain. On exam, patient appears uncomfortable. He is clinching the left eye shut. He is able to open this I do not know any injection or periorbital swelling. No exophthalmos. Pupils are equal round and reactive, No change compared to the contralateral side. No palpable swelling elsewhere in the face. I do see the 2 postsurgical spots on the upper and lower wisdom teeth of the left side. Patient does have some discomfort with opening his mouth fully but due to the patient's anxiety, it is difficult to assess if this is true trismus or not. I do not appreciate significant lymphadenopathy but his del real is slight barrier to palpation. He does not have any meningismus. Based on progression of symptoms, I am concerned for potential dental infection that may be spreading up and potentially leading to [employer] infection. At this point, I do not see any evidence to suggest meningismus or meningitis. However, I am concerned that if he is having a spreading infection it may lead to this. Will obtain a CT neck and head. Will give the patient IV antibiotics and obtain baseline blood work. Discussed plan with the patient who is in agreement Bill. He did take Tylenol prior to arrival and declines any further analgesics at this time. Patient requested analgesics from nursing staff. He is able to get a ride with his sister. Give patient IV Dilaudid. CT reviewed by radiologist: IMPRESSION: 1. No acute abnormality. No evidence of an abscess. 2. No acute intracranial process. Discussed with patient, he is feeling somewhat improved after pain meds. Sister picking him up. Will continue with abx, also advised close f/u with dentist- he will call int he AM. Encoruaged hydration, supportive care. Strict return precautions discussed, pall of his questions and concerns were addressed, he is in agreement with this plan. This documentation was generated using [employer] system, please disregard any oddities of phrase or misspellings. 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 Hyperbilirubinemia Essential hypertension DVT of axillary vein, acute bilateral (~02/2019) [facility] Pulmonary embolism, bilateral (~02/2019) [facility] [place] PE Dr. Flores [facility] [place] 08/2019; RECURRENT Tricuspid regurgitation 02/28/19 [facility] [place] ECHO; MILD TO MOD PAH (pulmonary artery hypertension) 02/28/19 [facility] [place] ECHO (MILD) Esophagitis determined by endoscopy (~05/2018) Esophageal foreign body (~05/2018) Bipolar disorder Surgical History S/P cholecystectomy 04/29/23 [facility] Surgical/Oncology. -hb H/O superior vena cava filter placement Abnormal findings on esophagogastroduodenoscopy (EGD) S/P partial thyroidectomy S/P IVC filter (~08/2019) [facility] [place] Priapism (~08/2019) 09/11/19 [facility] [place]; S/P PENILE SHUNT (AL-GHORAB) H/O hernia repair Unspecified site, repaired x3 History of splenectomy Social History Smoking/Tobacco Use Status: Never Smoking risk assessment performed?: Yes Alcohol Intake: never Drug use: Never Substance use type: does not use Housing: house Current gender identity: male Do you feel safe at home: Yes Do you feel safe in your relationship?: Yes
--- NOTE | 2024-07-09 13:15 | DI.CT_ITS ---
Exam(s) CT HEAD NECK W EXAM: CT HEAD NECK W CLINICAL HISTORY: dental surgery, pain L side to eye/head. TECHNIQUE: Imaging Protocol: Axial computed tomography images with coronal and sagittal reformatted images were created and reviewed. CONTRAST MATERIAL: Intravenous: Omnipaque 350 contrast volume:100 mL COMPARISON: CT CT HEAD WO from 06/12/2024 FINDINGS: Ventricles and Extra axial spaces: Normal in size and morphology for the patient's age. Hemorrhage: None. Cerebral parenchyma: Normal. Enhancement: No suspicious enhancement. [place]: Unremarkable. Midline shift: None. Brainstem/Cerebellum: Normal. Calvarium: Normal. Visualized Paranasal sinuses/Mastoids: There is mild mucosal thickening in the left maxillary sinus a nd a few ethmoid air cells. The mastoid air cells are clear. Soft tissues: Remarkable. Orbits and orbital soft tissues: Within normal limits. Nasopharynx: Within normal limits. Oropharynx: Within normal limits. Hypopharynx: Within normal limits. Larynx: Within normal limits. Retropharyngeal space: Within normal limits. Parotids/submandibular: Within normal limits. Thyroid gland: Within normal limits. Lymphadenopathy: There is scattered lymph nodes seen along the level one to level three all measurin g less than 8 mm in short axis diameter which are physiologic in nature. Trachea: Within normal limits. Lung apices: Within normal limits. Bones: Within normal limits for the patient's age. Prior extraction of left mandibular and maxillary molars. No destructive findings to suggest infection. Carotids/Jugular: Within normal limits. Soft tissues: Within normal limits. IMPRESSION: 1. No acute abnormality. No evidence of an abscess. 2. No acute intracranial process. RADIATION DOSE DELIVERED: 1,268.34mGy.cm Total DLP DATA REPOSITORY: All CT scans at this facility are submitted to the National Radiology Data Registry (NRDR) Dose Index Registry (DIR) with the [employer] [place] [employer] (ACR). RADIATION OPTIMIZATION: All CT scans at this facility use at least one of these dose optimization te chniques: automated exposure control; mA and/or kV adjustment per patient size (includes targeted exa ms where dose is matched to clinical indication); or iterative reconstruction.
[2024-07-09] MEDS: AMPICILLIN/SULBACTAM 3 GM in Normal Saline 100 ML IVPB (14:16)
[2024-07-09] MEDS: HYDROmorphone 2 MG/ML SYR 1 MG IVP (14:16)
[2024-07-09] MEDS: Benzocaine 20% Gel 30 GM JAR MM (14:17)
[2024-07-09 14:29] LABS: Lactate 1.1 mmol/L (0.6-1.4)
[2024-07-09 14:30] LABS: Abs Immature Grans 0.02 10^3/uL (0.0-0.06); Absolute Basophil Count 0.05 10^3/uL (0.0-0.2); Absolute Eosinophil Count 0.17 10^3/uL (0.0-0.7); Absolute Lymphocyte Count 3.73 10^3/uL (1.2-3.4); Absolute Monocyte Count 0.99 10^3/uL (0.1-0.8); Absolute Neutrophil Count 5.63 10^3/uL (1.2-6.7); Basophils % 0.5 %; Eosinophils % 1.6 %; HCT 52.8 % (40.0-50.0); Immature Grans % 0.2 %; Lymphocytes % 35.2 %; MCH 31.3 pg (27.0-33.0); MCHC 34.1 % (32.0-36.0); MCV 92 fL (80-95); MPV 9.5 fL (8.0-11.0); Monocytes % 9.3 %; Neutrophils % 53.2 %; Platelet Count 481 10^3/uL (130-400); RBC 5.76 10^6/uL (4.36-5.78); RDW 13.8 % (11.8-14.1); RDW-SD 46.5 fL; WBC 10.59 10^3/uL (4.4-10.8)
[2024-07-09] MEDS: Omnipaque 350 MG/ML 100 ML BTL IJ (14:38)
[2024-07-09] MEDS: Normal Saline - Diluent 50 ML VIAL IJ (14:38)
[2024-07-09 14:55] LABS: ALT 31 U/L (16-63); AST 34 U/L (15-37); Alkaline Phosphatase 80 U/L (46-116); Anion Gap 8.1 mmol/L (3-11); BUN 27 mg/dL (7-18); Bilirubin, Total 2.31 mg/dL (0.2-1.0); CO2 30.9 mmol/L (21.0-32.0); Calcium 9.6 mg/dL (8.5-10.1); Chloride 103 mmol/L (98-107); Estimated GFR 98.18 (mL/min/1.73m2); Glucose 93 mg/dL (74-106); Potassium 3.9 mmol/L (3.5-5.1); Sodium 142 mmol/L (136-145); Total Protein 8.4 g/dL (6.4-8.2)
[2024-07-09 15:29] VITALS: BP 143/72; PULSE 72; RESP 17; O2SAT 92
[2024-07-09 15:52] VITALS: BP 118/68; PULSE 69; RESP 16; O2SAT 94
== END 2024-07-09 15:52 | disposition home or self-care (01) ==
PROVIDERS: Emergency Provider Physician Assistant; PCP Family Medicine
DX: K08.89 Other specified disorders of teeth and supporting structures (principal); K04.7 Periapical abscess without sinus; I10 Essential (primary) hypertension; Z86.711 Personal history of pulmonary embolism; Z86.718 Personal history of other venous thrombosis and embolism; Z79.01 Long term (current) use of anticoagulants
CPT/HCPCS: 70491; 80053; 96365; 96375; 99285; 70460; 83605; 85025; J0295; J1171; J3490

== ENCOUNTER 2024-08-21 03:04 | Outpatient (CLI) | payer MEDICARE, MEDICAID, SELFPAY ==
[2024-08-21 10:15] LABS: HCT 44.5 % (40.0-50.0); HGB 15.1 g/dL (13.5-17.5); MCH 31.6 pg (27.0-33.0); MCHC 33.9 % (32.0-36.0); MCV 93 fL (80-95); MPV 9.4 fL (8.0-11.0); Platelet Count 427 10^3/uL (130-400); RBC 4.78 10^6/uL (4.36-5.78); RDW 14.4 % (11.8-14.1); RDW-SD 49.9 fL; WBC 13.02 10^3/uL (4.4-10.8)
[2024-08-22 14:51] LABS: Albumin g/dL 4.1 g/dL (3.6-5.2)
== END 2024-08-21 03:05 | disposition home or self-care (01) ==
LOC: LBO 03:04
PROVIDERS: PCP Family Medicine; Visit Provider Family Medicine
DX: R77.9 Abnormality of plasma protein, unspecified (principal); R53.83 Other fatigue
CPT/HCPCS: 36415; 85027; 84165

== ENCOUNTER 2024-11-04 08:23 | Emergency (ER) | payer MEDICARE, MEDICAID, SELFPAY ==
[2024-11-04 08:27] VITALS: BP 134/52; PULSE 85; RESP 18; TEMP 36.8; O2SAT 98
[2024-11-04 08:34] VITALS: BP 134/52; PULSE 85; RESP 18; TEMP 36.8; O2SAT 98
--- NOTE | 2024-11-04 08:39 | W.ED.GENAD ---
Discharge Plan Disposition Patient Disposition: Home Condition: Stable Discharge Details Clinical Impression: Cellulitis of fourth toe of right foot Primary Care Provider: José Miguel Flores ED Provider: Amanda Diego Home Meds and New Rx's Prescriptions: New cephalexin 500 mg tablet 500 mg PO BID 7 Days Qty: 14 0RF Continued famotidine 20 mg tablet 20 mg PO BID Qty: 180 3RF risperidone 2 mg tablet 2 mg PO BID Qty: 60 2RF acetaminophen [Tylenol Extra Strength] 500 mg tablet 1,000 mg PO TID PRN (Reason: pain/fever) Qty: 270 4RF pantoprazole 40 mg tablet,delayed release (DR/EC) 40 mg PO BID Qty: 180 3RF fluticasone propionate 50 mcg/actuation spray,suspension 2 spray intranasal DAILY Qty: 9.9 5RF Rx Instructions: administer into each nostril apixaban 5 mg tablet 5 mg PO BID Qty: 180 3RF doxepin 10 mg capsule 10 mg PO BID Qty: 180 2RF epinephrine [EpiPen 2-Farrukh] 0.3 mg/0.3 mL auto-injector 0.3 mg IM ONCE Qty: 2 0RF Rx Instructions: as a single dose clonazepam 1 mg tablet 1 mg PO BID PRN (Reason: anxiety) Qty: 60 5RF triamcinolone acetonide 0.1 % cream 1 applic topical BID Qty: 30 2RF sertraline 100 mg tablet 200 mg PO DAILY Qty: 180 3RF Rx Instructions: dose increase 6/ cyclobenzaprine 10 mg tablet 10 mg PO TID PRN (Reason: muscle spasm) Qty: 20 1RF Discharge Instructions Instructions: Cellulitis (Skin Infection), Adult ED Additional Instructions: Keep clean and dry as much as possible. Allow to air out at east 2 hours a day. Take the antibiotic with yogurt or a probiotic as directed. Keep covered with a Band-Aid when wearing a shoe. Follow up with primary care provider in 3-5 days. Return to ED sooner if any worsening or concerns. Thank you for allowing us to care for you today. Referrals: José Miguel Flores MD [Primary Care Provider] - 5 days Discharge Data Discharge Date/Time-TO BE ENTERED AT DEPARTURE: 11/04/24 09:01 HPI General Mode of arrival: ambulatory. Date/Time Provider Initiated Documentation: 11/04/24 08:32. Limitations to Documentation: no limitations. Information obtained by: patient, RN notes reviewed and old records reviewed. HPI Narrative: 38 year old male presents to the ER with a chief complaint of right fourth toe blister which he noticed yesterday. Last night he reports that the pain got worse and it felt weird noticed increased redness to the top of his foot. Denies any fever or chills. No known injury otherwise. He does have a open blister noted to the medial lower aspect of his fourth digit. No drainage noted. Does have a past medical history of a vena cava filter, thrombocytosis splenectomy, hypertension DVT PE tricuspid regurgitation pulmonary artery hypertension esophagitis and bipolar disorder and severe anxiety. Related Data Home Medications ?Medication ?Instructions ?Recorded ?Confirmed acetaminophen 500 mg tablet 1,000 mg (2 x 500 mg) PO TID PRN 01/03/24 11/04/24 (Tylenol Extra Strength) pain/fever #270 tabs pantoprazole 40 mg tablet,delayed 40 mg PO BID #180 tabs 01/25/24 11/04/24 release fluticasone propionate 50 2 spray intranasal DAILY #9.9 grams 03/10/24 11/04/24 mcg/actuation nasal spray,suspension apixaban 5 mg tablet 5 mg PO BID pulmonary embolism 04/13/24 11/04/24 #180 tabs doxepin 10 mg capsule 10 mg PO BID itching #180 caps 04/30/24 11/04/24 epinephrine 0.3 mg/0.3 mL 0.3 mg (0.3 mL) IM ONCE #2 ea 06/09/24 11/04/24 injection, auto-injector (EpiPen 2-Farrukh) clonazepam 1 mg tablet 1 mg PO BID PRN anxiety #60 tabs 07/13/24 11/04/24 triamcinolone acetonide 0.1 % 1 applic topical BID #30 grams 07/13/24 11/04/24 topical cream famotidine 20 mg tablet 20 mg PO BID #180 tabs 08/01/24 11/04/24 risperidone 2 mg tablet 2 mg PO BID #60 tabs 08/01/24 11/04/24 cyclobenzaprine 10 mg tablet 10 mg PO TID PRN muscle spasm #20 09/18/24 11/04/24 tabs sertraline 100 mg tablet 200 mg (2 x 100 mg) PO DAILY #180 09/18/24 11/04/24 tabs cephalexin 500 mg tablet 500 mg PO BID 7 days #14 tabs 11/04/24 Previous Rx's ?Medication ?Instructions ?Recorded acetaminophen 500 mg tablet 1,000 mg (2 x 500 mg) PO TID PRN 01/03/24 (Tylenol Extra Strength) pain/fever #270 tabs pantoprazole 40 mg tablet,delayed 40 mg PO BID #180 tabs 01/25/24 release fluticasone propionate 50 2 spray intranasal DAILY #9.9 grams 03/10/24 mcg/actuation nasal spray,suspension apixaban 5 mg tablet 5 mg PO BID pulmonary embolism 04/13/24 #180 tabs doxepin 10 mg capsule 10 mg PO BID itching #180 caps 04/30/24 epinephrine 0.3 mg/0.3 mL 0.3 mg (0.3 mL) IM ONCE #2 ea 06/09/24 injection, auto-injector (EpiPen 2-Farrukh) clonazepam 1 mg tablet 1 mg PO BID PRN anxiety #60 tabs 07/13/24 triamcinolone acetonide 0.1 % 1 applic topical BID #30 grams 07/13/24 topical cream famotidine 20 mg tablet 20 mg PO BID #180 tabs 08/01/24 risperidone 2 mg tablet 2 mg PO BID #60 tabs 08/01/24 cyclobenzaprine 10 mg tablet 10 mg PO TID PRN muscle spasm #20 09/18/24 tabs sertraline 100 mg tablet 200 mg (2 x 100 mg) PO DAILY #180 09/18/24 tabs cephalexin 500 mg tablet 500 mg PO BID 7 days #14 tabs 11/04/24 Allergies Allergy/AdvReac Type Severity Reaction Status Date / Time cat's claw Allergy Unknown Skin Rash Verified 11/04/24 08:32 neomycin (From Neosporin Allergy Unknown Skin Rash Verified 11/04/24 08:32 ([id number])) polymyxin B (From Neosporin Allergy Unknown Skin Rash Verified 11/04/24 08:32 ([id number])) bacitracin Allergy Skin Rash Verified 11/04/24 08:32 dog dander Allergy Skin Rash Verified 11/04/24 08:32 beer Allergy Severe Anaphylaxsi Uncoded 11/04/24 08:32 s General Stated Complaint: Cellulitis CONSTANCE: 3 Review of Systems All systems reviewed & are unremarkable except as noted in HPI and below Integumentary/Breasts Skin/Breast: Reports as per HPI, Reports erythema and Reports wounds Exam Extrem Right lower extremity: foot Details: normal capillary refill, abrasion plantar medial 4th toe Details: single and ecchymosis dorsal mid Ankle/foot/toe images: 1. Erythema 2. Blister Course Vital Signs Vital signs: Vital Signs Temperature 36.8 C 11/04/24 08:27 Pulse 85 11/04/24 08:27 Respiratory Rate 18 11/04/24 08:27 Blood Pressure 134/52 L 11/04/24 08:27 Pulse Oximetry 98 11/04/24 08:27 Temperature 36.8 C 11/04/24 08:34 Temperature Source Oral 11/04/24 08:34 Pulse 85 11/04/24 08:34 Respiratory Rate 18 11/04/24 08:34 Blood Pressure 134/52 L 11/04/24 08:34 Pulse Oximetry 98 11/04/24 08:34 Medical Decision Making 38 year old male presents to the ER with a chief complaint of right fourth toe blister which he noticed yesterday. Last night he reports that the pain got worse and it felt weird noticed increased redness to the top of his foot. Denies any fever or chills. No known injury otherwise. He does have a open blister noted to the medial lower aspect of his fourth digit. No drainage noted. Does have a past medical history of a vena cava filter, thrombocytosis splenectomy, hypertension DVT PE tricuspid regurgitation pulmonary artery hypertension esophagitis and bipolar disorder and severe anxiety. Patient has no evidence of septicemia, infection appears to be localized at this time, denies any fever or chills. Perform wound care, dressing and cephalexin 500 mg twice daily. Strict return instructions and home care verbalized today. Given first dose of the cephalexin here in the department and 2 tablets to go. This text was generated using [employer] system, please disregard any oddities of phrase or misspellings. Medical Records Medical records reviewed: Yes I reviewed the patient's medical records. 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 Hyperbilirubinemia Essential hypertension DVT of [place]illary vein, [place] bilateral [place] [facility] [place], [place] ([place] [facility] [place] [place] [facility] [place] RECUR[place] Tricuspid regurgitation [place] [facility] [place]; MILD TO MOD PAH (pulmonary artery hypertension) 02[place]28/[place] [facility] [place] Esophagitis determined by endoscopy (~05/2018) Esophageal foreign body (~05/2018) Bipolar disorder Surgical History S/P cholecystectomy 04/29/23 [facility] Surgical/Oncology. -hb H/O superior vena cava filter placement Abnormal findings on esophagogastroduodenoscopy (EGD) S/P partial thyroidectomy S/P IVC filter (~08/2019[place] [facility] [place] (~08/[place] [facility] [place] S/P PENILE SHUNT (AL-GHORAB) H/O hernia repair Unspecified site, repaired x3 History of splenectomy Social History Smoking/Tobacco Use Status: Never Smoking risk assessment performed?: Yes Alcohol Intake: never Drug use: Never Substance use type: does not use Counseling given: No Housing: house Current gender identity: male Do you feel safe at home: Yes Do you feel safe in your relationship?: Yes
[2024-11-04] MEDS: Cephalexin 500 MG CAP PO (08:55)
[2024-11-04] MEDS: Cephalexin 500 MG CAP, 2 CAPS/BTL PO (08:55)
== END 2024-11-04 09:01 | disposition home or self-care (01) ==
PROVIDERS: Emergency Provider Registered Nurse Emergency; PCP Family Medicine
DX: L03.031 Cellulitis of right toe (principal); Z59.82 Transportation insecurity; Z60.8 Other problems related to social environment
CPT/HCPCS: 99283 ×2

== ENCOUNTER 2024-12-01 19:57 | Emergency (ER) | payer MEDICARE, MEDICAID, SELFPAY ==
[2024-12-01 20:00] VITALS: BP 131/78; PULSE 64; RESP 14; TEMP 36.6; O2SAT 96
[2024-12-01 20:59] VITALS: BP 127/55; PULSE 63; RESP 24; O2SAT 97
--- NOTE | 2024-12-01 22:05 | ED.GENADUL_ITS ---
Discharge Plan Disposition Patient Disposition: Home Condition: Stable Discharge Details Clinical Impression: Rash Primary Care Provider: José Miguel Flores ED Provider: Nilsa Marquis Home Meds and New Rx's Prescriptions: No Action famotidine 20 mg tablet 20 mg PO BID Qty: 180 3RF risperidone 2 mg tablet 2 mg PO BID Qty: 60 2RF pantoprazole 40 mg tablet,delayed release (DR/EC) 40 mg PO BID Qty: 180 3RF fluticasone propionate 50 mcg/actuation spray,suspension 2 spray intranasal DAILY Qty: 9.9 5RF Rx Instructions: administer into each nostril apixaban 5 mg tablet 5 mg PO BID Qty: 180 3RF doxepin 10 mg capsule 10 mg PO BID Qty: 180 2RF epinephrine [EpiPen 2-Farrukh] 0.3 mg/0.3 mL auto-injector 0.3 mg IM ONCE Qty: 2 0RF Rx Instructions: as a single dose clonazepam 1 mg tablet 1 mg PO BID PRN (Reason: anxiety) Qty: 60 5RF triamcinolone acetonide 0.1 % cream 1 applic topical BID Qty: 30 2RF sertraline 100 mg tablet 200 mg PO DAILY Qty: 180 3RF Rx Instructions: dose increase 06/02/23 cyclobenzaprine 10 mg tablet 10 mg PO TID PRN (Reason: muscle spasm) Qty: 20 1RF mupirocin 2 % ointment 1 applic Topical BID PRN (Reason: impetigo) 10 Days Qty: 22 5RF acetaminophen [Tylenol Extra Strength] 500 mg tablet 1,000 mg PO TID PRN (Reason: pain/fever) Qty: 270 4RF clindamycin phosphate 1 % solution 1 applic topical DAILY PRN (Reason: acne) Qty: 60 2RF clascoterone 1 % cream 1 applic topical BID PRN (Reason: acne) Qty: 60 0RF tretinoin 0.05 % gel 1 applic topical QHS PRN (Reason: acne) Qty: 45 0RF Discharge Instructions Additional Instructions: use the ointment provided 2-3 times per day if symptoms don't improve, please follow up with your pcp HPI General Date/Time Provider Initiated Documentation: 12/01/24 20:08 . Limitations to Documentation: no limitations . Information obtained by: patient . HPI Narrative: 47-year-old gentleman with past medical history clotting disorder, DVT, PE on anticoagulant presents for evaluation of chest rash. He reports that the symptoms started about 30 minutes ago after getting out of the shower. He reports that he had just rinsed off soap. He denies that it was a new soap. He has used it before without any issue. He reports that he had an onset of burning and itching and became very worried because he does have a history of anaphylaxis and became scared. He denies any shortness of breath difficulty talking or swallowing. Denies any cough or wheezing. He reports that this rash looks similar in appearance to the acne rash on his face that he is being treated for by dermatology. He denies any other recent exposures to new laundry lotions scents deodorants or plants. He also denies any new medications or antibiotics. Related Data Home Medications ?Medication ?Instructions ?Recorded ?Confirmed pantoprazole 40 mg tablet,delayed 40 mg PO BID #180 tabs 01/25/24 12/01/24 release fluticasone propionate 50 2 spray intranasal DAILY #9.9 grams 03/10/24 12/01/24 mcg/actuation nasal spray,suspension apixaban 5 mg tablet 5 mg PO BID pulmonary embolism 04/13/24 12/01/24 #180 tabs doxepin 10 mg capsule 10 mg PO BID itching #180 caps 04/30/24 12/01/24 epinephrine 0.3 mg/0.3 mL 0.3 mg (0.3 mL) IM ONCE #2 ea 06/09/24 11/06/24 injection, auto-injector (EpiPen 2-Farrukh) clonazepam 1 mg tablet 1 mg PO BID PRN anxiety #60 tabs 07/13/24 12/01/24 triamcinolone acetonide 0.1 % 1 applic topical BID #30 grams 07/13/24 12/01/24 topical cream famotidine 20 mg tablet 20 mg PO BID #180 tabs 08/01/24 12/01/24 risperidone 2 mg tablet 2 mg PO BID #60 tabs 08/01/24 12/01/24 cyclobenzaprine 10 mg tablet 10 mg PO TID PRN muscle spasm #20 09/18/24 12/01/24 tabs sertraline 100 mg tablet 200 mg (2 x 100 mg) PO DAILY #180 03/24/25 06/06/25 tabs acetaminophen 500 mg tablet 1,000 mg (2 x 500 mg) PO TID PRN 11/08/24 12/01/24 (Tylenol Extra Strength) pain/fever #270 tabs clindamycin phosphate 1 % topical 1 applic topical DAILY PRN acne 11/08/24 12/01/24 solution #60 mL mupirocin 2 % topical ointment 1 applic topical BID PRN impetigo 11/08/24 10 days #22 grams clascoterone 1 % topical cream 1 applic topical BID PRN acne #60 11/09/24 grams tretinoin 0.05 % topical gel 1 applic topical QHS PRN acne #45 11/11/24 12/01/24 grams Previous Rx's ?Medication ?Instructions ?Recorded pantoprazole 40 mg tablet,delayed 40 mg PO BID #180 tabs 01/25/24 release fluticasone propionate 50 2 spray intranasal DAILY #9.9 grams 03/10/24 mcg/actuation nasal spray,suspension apixaban 5 mg tablet 5 mg PO BID pulmonary embolism 04/13/24 #180 tabs doxepin 10 mg capsule 10 mg PO BID itching #180 caps 04/30/24 epinephrine 0.3 mg/0.3 mL 0.3 mg (0.3 mL) IM ONCE #2 ea 06/09/24 injection, auto-injector (EpiPen 2-Farrukh) clonazepam 1 mg tablet 1 mg PO BID PRN anxiety #60 tabs 07/13/24 triamcinolone acetonide 0.1 % 1 applic topical BID #30 grams 07/13/24 topical cream famotidine 20 mg tablet 20 mg PO BID #180 tabs 08/01/24 risperidone 2 mg tablet 2 mg PO BID #60 tabs 08/01/24 cyclobenzaprine 10 mg tablet 10 mg PO TID PRN muscle spasm #20 09/18/24 tabs sertraline 100 mg tablet 200 mg (2 x 100 mg) PO DAILY #180 09/18/24 tabs acetaminophen 500 mg tablet 1,000 mg (2 x 500 mg) PO TID PRN 11/08/24 (Tylenol Extra Strength) pain/fever #270 tabs clindamycin phosphate 1 % topical 1 applic topical DAILY PRN acne 11/08/24 solution #60 mL mupirocin 2 % topical ointment 1 applic topical BID PRN impetigo 11/08/24 10 days #22 grams clascoterone 1 % topical cream 1 applic topical BID PRN acne #60 11/09/24 grams tretinoin 0.05 % topical gel 1 applic topical QHS PRN acne #45 11/11/24 grams Allergies Allergy/AdvReac Type Severity Reaction Status Date / Time cat's claw Allergy Unknown Skin Rash Verified 12/01/24 20:29 neomycin (From Neosporin Allergy Unknown Skin Rash Verified 12/01/24 20:29 ([id number])) polymyxin B (From Neosporin Allergy Unknown Skin Rash Verified 12/01/24 20:29 ([id number])) bacitracin Allergy Skin Rash Verified 12/01/24 20:29 dog dander Allergy Skin Rash Verified 12/01/24 20:29 beer Allergy Severe Anaphylaxsi Uncoded 12/01/24 20:29 s General Stated Complaint: Allergic CONSTANCE: 4 Exam Narrative Exam Narrative: Review of Systems: All systems reviewed & are unremarkable except as noted in HPI and below Well-developed, no acute distress NCAT RRR Unlabored respiratory effort clear bilaterally no wheezing No significant rash or lesions noted on the face, some mild irritation consistent with acne The chest has a patch of red skin with some minor pustules noted over the sternum, there is a significant amount of chest here and some irritated follicles no focal neurologic deficits Flat affect Course Vital Signs Vital signs: Vital Signs Temperature 36.6 C 12/01/24 20:00 Pulse 64 12/01/24 20:00 Respiratory Rate 14 12/01/24 20:00 Blood Pressure 131/78 12/01/24 20:00 Pulse Oximetry 96 12/01/24 20:00 Temperature 36.6 C 12/01/24 20:00 Pulse 63 12/01/24 20:59 Respiratory Rate 24 12/01/24 20:59 Respiratory Effort Normal 12/01/24 20:28 Respiratory Pattern Normal 12/01/24 20:28 Blood Pressure 127/55 L 12/01/24 20:59 Pulse Oximetry 97 12/01/24 20:59 Oxygen Delivery Method Room Air 12/01/24 20:00 Oxygen Flow Rate 0 12/01/24 20:00 Medical Decision Making Emergent evaluation of rash. Patient reports that the onset of symptoms occurred 30 minutes ago after his shower. There are no signs or symptoms concerning for anaphylaxis. He does not have any rash consistent with shingles and there is no dermatomal pattern. Does not appear consistent with cellulitis or other infectious etiology. Considered contact dermatitis, folliculitis. Will give topical steroid cream to use. Recommend continued use at home. Return precautions advised. Follow-up with PCP and dermatology who is seen at [facility] as needed. 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 Hyperbilirubinemia Essential hypertension DVT of axillary vein, [place] bilateral ([place]02/2019[place] [facility] [place], [place] ([place]2019[place] [facility] [place] [place] [facility] [place]UR[place] Tricuspid regurgitation 02/28/[place] [facility] [place]; M[place] TO MOD PAH (pulmonary artery hypertension) 02[place]28/[place] [facility] [place] Esophagitis determined by endoscopy (~05/2018) Esophageal foreign body (~05/2018) Bipolar disorder Surgical History S/P cholecystectomy 04/29/23 [facility] Surgical/Oncology. -hb H/O superior vena cava filter placement Abnormal findings on esophagogastroduodenoscopy (EGD) S/P partial thyroidectomy S/P IVC filter (~08/2019[place] [facility] [place] ([place] [facility] [place] S/P PENILE SHUNT ([place]AB) H/O hernia repair Unspecified site, repaired x3 History of splenectomy Social History Smoking/Tobacco Use Status: Never Smoking risk assessment performed?: Yes Alcohol Intake: never Drug use: Never Substance use type: does not use Counseling given: No Housing: house Current gender identity: male Do you feel safe at home: Yes Do you feel safe in your relationship?: Yes
== END 2024-12-01 23:06 | disposition home or self-care (01) ==
PROVIDERS: Emergency Provider Emergency Medicine; PCP Family Medicine
DX: R21 Rash and other nonspecific skin eruption (principal); Z86.711 Personal history of pulmonary embolism; Z86.718 Personal history of other venous thrombosis and embolism; Z79.01 Long term (current) use of anticoagulants
CPT/HCPCS: 99282; 99283

== ENCOUNTER 2024-12-01 22:40 | Emergency (ER) | payer MEDICARE, MEDICAID, SELFPAY ==
--- NOTE | 2024-12-01 22:44 | ED.GENADUL_ITS ---
Discharge Plan Disposition Patient Disposition: Home Condition: Good Discharge Details Clinical Impression: Feared condition not demonstrated Primary Care Provider: José Miguel Flores ED Provider: Guille Saldaña [place] Meds and New Rx's Prescriptions: Continued famotidine 20 mg tablet 20 mg PO BID Qty: 180 3RF risperidone 2 mg tablet 2 mg PO BID Qty: 60 2RF pantoprazole 40 mg tablet,delayed release (DR/EC) 40 mg PO BID Qty: 180 3RF fluticasone propionate 50 mcg/actuation spray,suspension 2 spray intranasal DAILY Qty: 9.9 5RF Rx Instructions: administer into each nostril apixaban 5 mg tablet 5 mg PO BID Qty: 180 3RF doxepin 10 mg capsule 10 mg PO BID Qty: 180 2RF epinephrine [EpiPen 2-Farrukh] 0.3 mg/0.3 mL auto-injector 0.3 mg IM ONCE Qty: 2 0RF Rx Instructions: as a single dose clonazepam 1 mg tablet 1 mg PO BID PRN (Reason: anxiety) Qty: 60 5RF triamcinolone acetonide 0.1 % cream 1 applic topical BID Qty: 30 2RF sertraline 100 mg tablet 200 mg PO DAILY Qty: 180 3RF Rx Instructions: dose increase 06/02/23 cyclobenzaprine 10 mg tablet 10 mg PO TID PRN (Reason: muscle spasm) Qty: 20 1RF mupirocin 2 % ointment 1 applic Topical BID PRN (Reason: impetigo) 10 Days Qty: 22 5RF acetaminophen [Tylenol Extra Strength] 500 mg tablet 1,000 mg PO TID PRN (Reason: pain/fever) Qty: 270 4RF clindamycin phosphate 1 % solution 1 applic topical DAILY PRN (Reason: acne) Qty: 60 2RF clascoterone 1 % cream 1 applic topical BID PRN (Reason: acne) Qty: 60 0RF tretinoin 0.05 % gel 1 applic topical QHS PRN (Reason: acne) Qty: 45 0RF Discharge Instructions Additional Instructions: At this time there is no apparent rash or lesions involving your arms and no e vidence of an anaphylactic or allergic reaction. You may continue your previous medications as prescribed by dermatology from [facility]. You should follow-up with primary care next week. Return to the ED if you develop difficulty breathing, syncope, vomiting or diarrhea, fever, other concerns. Referrals: José Miguel Flores MD [Primary Care Provider] - [facility] General Mode of arrival: ambulatory . Date/Time Provider Initiated Documentation: 12/01/24 22:41 . Limitations to Documentation: no limitations . Information obtained by: patient and RN notes reviewed . HPI Narrative: Patient returns with concern for rash on his arms. He was just seen for a rash on his chest. He states his arms are now turning red and orange and he is afraid he is having anaphylaxis. He was just seen for a rash on his chest earlier this evening. Per the note he had noticed it after getting out of the shower. Since going home he says he is now having rash and bumps on his arm. He has no difficulty breathing. He denies any pruritus. Denies any GI symptoms. Related Data Home Medications ?Medication ?Instructions ?Recorded ?Confirmed pantoprazole 40 mg tablet,delayed 40 mg PO BID #180 tabs 01/25/24 12/01/24 release fluticasone propionate 50 2 spray intranasal DAILY #9.9 grams 03/10/24 12/01/24 mcg/actuation nasal spray,suspension apixaban 5 mg tablet 5 mg PO BID pulmonary embolism 04/13/24 12/01/24 #180 tabs doxepin 10 mg capsule 10 mg PO BID itching #180 caps 04/30/24 12/01/24 epinephrine 0.3 mg/0.3 mL 0.3 mg (0.3 mL) IM ONCE #2 ea 06/09/24 12/01/24 injection, auto-injector (EpiPen 2-Farrukh) clonazepam 1 mg tablet 1 mg PO BID PRN anxiety #60 tabs 07/13/24 12/01/24 triamcinolone acetonide 0.1 % 1 applic topical BID #30 grams 07/13/24 12/01/24 topical cream famotidine 20 mg tablet 20 mg PO BID #180 tabs 08/01/24 12/01/24 risperidone 2 mg tablet 2 mg PO BID #60 tabs 08/01/24 12/01/24 cyclobenzaprine 10 mg tablet 10 mg PO TID PRN muscle spasm #20 09/18/24 12/01/24 tabs sertraline 100 mg tablet 200 mg (2 x 100 mg) PO DAILY #180 03/24/25 06/06/25 tabs acetaminophen 500 mg tablet 1,000 mg (2 x 500 mg) PO TID PRN 11/08/24 12/01/24 (Tylenol Extra Strength) pain/fever #270 tabs clindamycin phosphate 1 % topical 1 applic topical DAILY PRN acne 11/08/24 12/01/24 solution #60 mL mupirocin 2 % topical ointment 1 applic topical BID PRN impetigo 11/08/24 12/01/24 10 days #22 grams clascoterone 1 % topical cream 1 applic topical BID PRN acne #60 11/09/24 12/01/24 grams tretinoin 0.05 % topical gel 1 applic topical QHS PRN acne #45 11/11/24 12/01/24 grams Previous Rx's ?Medication ?Instructions ?Recorded pantoprazole 40 mg tablet,delayed 40 mg PO BID #180 tabs 01/25/24 release fluticasone propionate 50 2 spray intranasal DAILY #9.9 grams 03/10/24 mcg/actuation nasal spray,suspension apixaban 5 mg tablet 5 mg PO BID pulmonary embolism 04/13/24 #180 tabs doxepin 10 mg capsule 10 mg PO BID itching #180 caps 04/30/24 epinephrine 0.3 mg/0.3 mL 0.3 mg (0.3 mL) IM ONCE #2 ea 06/09/24 injection, auto-injector (EpiPen 2-Farrukh) clonazepam 1 mg tablet 1 mg PO BID PRN anxiety #60 tabs 07/13/24 triamcinolone acetonide 0.1 % 1 applic topical BID #30 grams 07/13/24 topical cream famotidine 20 mg tablet 20 mg PO BID #180 tabs 08/01/24 risperidone 2 mg tablet 2 mg PO BID #60 tabs 08/01/24 cyclobenzaprine 10 mg tablet 10 mg PO TID PRN muscle spasm #20 09/18/24 tabs sertraline 100 mg tablet 200 mg (2 x 100 mg) PO DAILY #180 09/18/24 tabs acetaminophen 500 mg tablet 1,000 mg (2 x 500 mg) PO TID PRN 11/08/24 (Tylenol Extra Strength) pain/fever #270 tabs clindamycin phosphate 1 % topical 1 applic topical DAILY PRN acne 11/08/24 solution #60 mL mupirocin 2 % topical ointment 1 applic topical BID PRN impetigo 11/08/24 10 days #22 grams clascoterone 1 % topical cream 1 applic topical BID PRN acne #60 11/09/24 grams tretinoin 0.05 % topical gel 1 applic topical QHS PRN acne #45 11/11/24 grams Allergies Allergy/AdvReac Type Severity Reaction Status Date / Time cat's claw Allergy Unknown Skin Rash Verified 12/01/24 22:50 neomycin (From Neosporin Allergy Unknown Skin Rash Verified 12/01/24 22:50 ([id number])) polymyxin B (From Neosporin Allergy Unknown Skin Rash Verified 12/01/24 22:50 ([id number])) bacitracin Allergy Skin Rash Verified 12/01/24 22:50 dog dander Allergy Skin Rash Verified 12/01/24 22:50 beer Allergy Severe Anaphylaxsi Uncoded 12/01/24 22:50 s General CONSTANCE: 4 Exam Narrative Exam Narrative: Const: WDWN male in NAD. VS per triage. HEENT: NC/AT. Normal facial exam. Neck: Supple. Trachea midline. No stridor. Lungs: Normal respiratory effort. Lungs are clear. Cor: RRR without murmur. Good radial pulses. Neuro: A+O x 3. Normal speech, mentation, gait. Cranial nerves II - XII grossly intact. No gross motor or sensory deficit. Ext: No C/C/E Skin: Both upper extremities heavily tattooed. I do not appreciate any discoloration or lesions that he is describing. He does have an erythematous, scaly, dermatitis-like rash on the chest which sounds like it is unchanged. Medical Decision Making Patient returns to ED stating that he feels the rash is spreading onto his arms. He thinks he might be having a reaction to something. While the rash on his chest is still present it does not look anything like allergy related rash. I do not appreciate any type of skin changes involving his arms at all. His lungs are clear. His blood pressure is little elevated but he has pretty significant anxiety/mental health problems and this is not unusual for him. In any event he is not tachycardic or hypotensive. I do not believe he is having any type of an anaphylactic or allergic reaction. Patient is reassured. He is asked to follow-up with primary care next week. Discharged with return precautions. 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 Hyperbilirubinemia Essential hypertension DVT of axillary vein, acute bilateral (~02/2019) [facility] [place], bilateral (~02/2019[place] [facility] [place] [place] [place] [facility] [place] RECURRENT Tricuspid regurgitation 02/28/[place] [facility] [place]; MILD TO MOD PAH (pulmonary artery hypertension) 02/28/[place] [facility] [place] Esophagitis determined by endoscopy (~05/2018) Esophageal foreign body (~05/2018) Bipolar disorder Surgical History S/P cholecystectomy 04/29/23 [facility] Surgical/Oncology. -hb H/O superior vena cava filter placement Abnormal findings on esophagogastroduodenoscopy (EGD) S/P partial thyroidectomy S/P IVC filter (~08/2019) [facility] [place] (~08/[place]) [place] [facility] [place] S/P PENILE SHUNT (AL-GHORAB) H/O hernia repair Unspecified site, repaired x3 History of splenectomy Social History Smoking/Tobacco Use Status: Never Smoking risk assessment performed?: Yes Alcohol Intake: never Drug use: Never Substance use type: does not use Counseling given: No Housing: house Current gender identity: male Do you feel safe at home: Yes Do you feel safe in your relationship?: Yes
[2024-12-01 22:45] VITALS: BP 142/70; PULSE 69; RESP 18; TEMP 36.4; O2SAT 98
== END 2024-12-01 23:07 | disposition home or self-care (01) ==
PROVIDERS: Emergency Provider Emergency Medicine; PCP Family Medicine
DX: R21 Rash and other nonspecific skin eruption (principal)
CPT/HCPCS: 99282

== ENCOUNTER 2025-02-10 19:34 | Emergency (ER) | payer MEDICARE, MEDICAID, SELFPAY ==
[2025-02-10 19:37] VITALS: BP 142/76; PULSE 81; RESP 16; TEMP 36.7; O2SAT 98
[2025-02-10 19:39] VITALS: BP 142/76; PULSE 81; RESP 16; TEMP 36.7; O2SAT 98
[2025-02-10] MEDS: Lidocaine/Epinephri/Tetracaine Topical Gel 3 ML (20:03)
[2025-02-10 21:11] VITALS: BP 134/76; PULSE 60; RESP 16; O2SAT 95
--- NOTE | 2025-02-10 22:26 | W.ED.GENAD ---
Discharge Plan Disposition Patient Disposition: Home Condition: Stable Discharge Details Clinical Impression: External hemorrhoid, thrombosed Primary Care Provider: José Miguel Flores ED Provider: Angie Finley Home Meds and New Rx's Prescriptions: New docusate sodium [Col-Rite] 100 mg capsule 100 mg PO DAILY Qty: 5 0RF hydrocortisone 2.5 % cream with perineal applicator 1 applic MS QD-BID PRN5 Days Qty: 30 0RF Continued pantoprazole 40 mg tablet,delayed release (DR/EC) 40 mg PO BID Qty: 180 3RF apixaban 5 mg tablet 5 mg PO BID Qty: 180 3RF epinephrine [EpiPen 2-Farrukh] 0.3 mg/0.3 mL auto-injector 0.3 mg IM ONCE Qty: 2 0RF Rx Instructions: as a single dose clonazepam 1 mg tablet 1 mg PO BID PRN (Reason: anxiety) Qty: 60 5RF sertraline 100 mg tablet 200 mg PO DAILY Qty: 180 3RF Rx Instructions: dose increase 06/02/23 acetaminophen [Tylenol Extra Strength] 500 mg tablet 1,000 mg PO TID PRN (Reason: pain/fever) Qty: 270 4RF risperidone 2 mg tablet 2 mg PO BID Qty: 180 3RF Discharge Instructions Instructions: Hemorrhoids ED Additional Instructions: take the colace daily for the next 5 days Use the steroid with applicator twice a day for the next 3 to 5 days Sitz bath's You may change the gauze every several hours as you might still have some bleeding I drained one of the thrombosed hemorrhoids, so you should have some improvement of pain, however you may still have some slight bleeding You have 1 more hemorrhoid that does not look like it has a clot in it, continue to apply the steroid medication for this purpose The colitis will cause loose stools, this will help the hemorrhoids improve I recommend taking Metamucil daily to increase your fiber and make sure you are drinking at least eight 8 ounce glasses of water daily so you have regular bowel movements I am listing surgery below for follow-up as needed for reassessment Referrals: Dilan Yeboah MD [ [facility], Surgery] Discharge Data Discharge Date/Time-TO BE ENTERED AT DEPARTURE: 02/10/25 21:27 HPI General Date/Time Provider Initiated Documentation: 02/10/25 19:35. HPI Narrative: This 39-year-old gentleman on chronic anticoagulation for anticardiolipin antibody disorder presents with concern for hemorrhoid with bleeding. He states he has had recurrent hemorrhoids in the past but in the past 4 days has had some bleeding from this site which concerned him. He describes clots in his underwear. He has been using Preparation H suppositories without relief for patient. Related Data Home Medications ?Medication ?Instructions ?Recorded ?Confirmed pantoprazole 40 mg tablet,delayed 40 mg PO BID #180 tabs 01/25/24 02/10/25 release apixaban 5 mg tablet 5 mg PO BID pulmonary embolism 04/13/24 02/10/25 #180 tabs epinephrine 0.3 mg/0.3 mL 0.3 mg (0.3 mL) IM ONCE #2 ea 06/09/24 02/10/25 injection, auto-injector (EpiPen 2-Farrukh) clonazepam 1 mg tablet 1 mg PO BID PRN anxiety #60 tabs 07/13/24 02/10/25 sertraline 100 mg tablet 200 mg (2 x 100 mg) PO DAILY #180 09/18/24 02/10/25 tabs acetaminophen 500 mg tablet 1,000 mg (2 x 500 mg) PO TID PRN 11/08/24 02/10/25 (Tylenol Extra Strength) pain/fever #270 tabs risperidone 2 mg tablet 2 mg PO BID #180 tabs 12/27/24 02/10/25 docusate sodium 100 mg capsule 100 mg PO DAILY #5 caps 02/10/25 (Col-Rite) hydrocortisone 2.5 % topical cream 1 applic MS QD-BID PRN 5 days #30 02/10/25 with perineal applicator grams Previous Rx's ?Medication ?Instructions ?Recorded pantoprazole 40 mg tablet,delayed 40 mg PO BID #180 tabs 01/25/24 release apixaban 5 mg tablet 5 mg PO BID pulmonary embolism 04/13/24 #180 tabs epinephrine 0.3 mg/0.3 mL 0.3 mg (0.3 mL) IM ONCE #2 ea 06/09/24 injection, auto-injector (EpiPen 2-Farrukh) clonazepam 1 mg tablet 1 mg PO BID PRN anxiety #60 tabs 07/13/24 sertraline 100 mg tablet 200 mg (2 x 100 mg) PO DAILY #180 09/18/24 tabs acetaminophen 500 mg tablet 1,000 mg (2 x 500 mg) PO TID PRN 11/08/24 (Tylenol Extra Strength) pain/fever #270 tabs risperidone 2 mg tablet 2 mg PO BID #180 tabs 12/27/24 docusate sodium 100 mg capsule 100 mg PO DAILY #5 caps 02/10/25 (Col-Rite) hydrocortisone 2.5 % topical cream 1 applic MS QD-BID PRN 5 days #30 02/10/25 with perineal applicator grams Allergies Allergy/AdvReac Type Severity Reaction Status Date / Time cat's claw Allergy Unknown Skin Rash Verified 02/10/25 19:39 neomycin (From Neosporin Allergy Unknown Skin Rash Verified 02/10/25 19:39 ([id number])) polymyxin B (From Neosporin Allergy Unknown Skin Rash Verified 02/10/25 19:39 ([id number])) bacitracin Allergy Skin Rash Verified 02/10/25 19:39 dog dander Allergy Skin Rash Verified 02/10/25 19:39 General Stated Complaint: GenMedical CONSTANCE: 4 Exam Narrative Exam Narrative: Alert and at cognitive baseline 39-year-old male perirectally there are 2 obvious to hemorrhoids, 1 hemorrhoid is thrombosed with a large clot minimal tenderness scant active bleeding no abdominal tenderness Course Vital Signs Vital signs: Vital Signs Temperature 36.7 C 02/10/25 19:37 Pulse 81 02/10/25 19:37 Respiratory Rate 16 02/10/25 19:37 Blood Pressure 142/76 H 02/10/25 19:37 Pulse Oximetry 98 02/10/25 19:37 Temperature 36.7 C 02/10/25 19:39 Pulse 60 02/10/25 21:11 Respiratory Rate 16 02/10/25 21:11 Respiratory Effort Normal 02/10/25 19:54 Blood Pressure 134/76 02/10/25 21:11 Pulse Oximetry 95 02/10/25 21:11 Pain Level 0 02/10/25 21:11 Medical Decision Making Procedure: Let was applied superficially to the thrombosed hemorrhoid overlying the 6 o'clock position on the rectum, 1% lidocaine with epinephrine was injected into the thrombosed hemorrhoid and a small incision was made with an 11 blade and the thrombus was removed and deloculated saline soaked gauze was applied around the site and ABD pad was placed. Assessment and plan 39-year-old male presenting with concern for thrombosed hemorrhoid with a history of coagulopathy on chronic anticoagulation. He stopped his Eliquis apparently a week ago because he thought he was bleeding internally. He is encouraged to reinitiate his Eliquis at this time he has bleeding from likely a thrombosed hemorrhoid I see no clear indication check CBC this patient is quite hemodynamically stable at this time in the my initial assessment. The thrombus was removed packing was placed no evidence of abscess nontender abdominal exam hemodynamically stable. Patient was given a surgical referral. Sitz bath's encouraged he was given Colace for the next 5 days and encouraged to use 2.5% hydrocortisone suppositories for the next several days. Metamucil and at least 64 ounces of water daily were encouraged in the future. 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 Hyperbilirubinemia Essential hypertension DVT of axillary vein, acute bilateral (~02/2019) [facility] [place], bilateral (~02/2019) [facility] [place] [place] [place] [facility] [place] RECURRENT Tricuspid regurgitation 02/28/19 [facility] [place]; MILD TO MOD PAH (pulmonary artery hypertension) 02/28/19 [facility] [place] Esophagitis determined by endoscopy (~05/2018) Esophageal foreign body (~05/2018) Bipolar disorder Surgical History S/P cholecystectomy 04/29/23 [facility] Surgical/Oncology. -hb H/O superior vena cava filter placement Abnormal findings on esophagogastroduodenoscopy (EGD) S/P partial thyroidectomy S/P IVC filter (~08/2019) [facility] [place] (~08/[place]) [place] [facility] [place] S/[place] PENILE SHUNT ([place]) H/O hernia repair Unspecified site, repaired x3 History of splenectomy Social History Smoking/Tobacco Use Status: Never Smoking risk assessment performed?: Yes Alcohol Intake: never Drug use: Never Substance use type: does not use Counseling given: No Housing: house Current gender identity: male Do you feel safe at home: Yes Do you feel safe in your relationship?: Yes
== END 2025-02-10 21:27 | disposition home or self-care (01) ==
PROVIDERS: Emergency Provider Physician Assistant; PCP Family Medicine
DX: K64.5 Perianal venous thrombosis (principal)
CPT/HCPCS: 99283

== ENCOUNTER 2025-02-16 00:44 | Outpatient (CLI) | payer MEDICARE, MEDICAID, SELFPAY ==
[2025-02-16 14:00] LABS: Glucose 86 mg/dL (74-106); TSH (W/Ref FT4) 1.54 uIU/mL (0.36-3.74); Vitamin B12 1863 pg/mL (193-986)
== END 2025-02-16 00:45 | disposition home or self-care (01) ==
LOC: LBO 00:44
PROVIDERS: PCP Family Medicine; Visit Provider Family Medicine
DX: D64.9 Anemia, unspecified (principal); E03.9 Hypothyroidism, unspecified; R73.9 Hyperglycemia, unspecified
CPT/HCPCS: 36415; 82947; 82607; 84443

== ENCOUNTER 2025-02-20 21:25 | Emergency (ER) | payer MEDICARE, MEDICAID, SELFPAY ==
[2025-02-20 21:35] VITALS: BP 133/73; PULSE 60; TEMP 37.2; O2SAT 95
--- NOTE | 2025-02-20 21:51 | DI.RAD_ITS ---
Exam(s) XR FOOT LT COMPLETE EXAM: XR FOOT LT COMPLETE CLINICAL HISTORY: L heel pain. TECHNIQUE: 2D digital imaging was performed of the left foot. Three images were obtained. AP, oblique and lateral views were obtained. COMPARISON: No exams were available for comparison FINDINGS: BONES: No acute fracture is present. No bony destructive lesion is seen. There is a tiny enthesophyte at the posterior calcaneus. JOINTS: No dislocation present. SOFT TISSUE: Normal. IMPRESSION: No acute abnormality. DATA REPOSITORY: RADIATION DOSE DELIVERED:
--- NOTE | 2025-02-20 21:52 | W.ED.GENAD ---
Discharge Plan Disposition Patient Disposition: Home Discharge Details Clinical Impression: Discoloration of skin of foot Primary Care Provider: José Miguel Flores ED Provider: Myriam Jara Home Meds and New Rx's Prescriptions: No Action pantoprazole 40 mg tablet,delayed release (DR/EC) 40 mg PO BID Qty: 180 3RF apixaban 5 mg tablet 5 mg PO BID Qty: 180 3RF epinephrine [EpiPen 2-Farrukh] 0.3 mg/0.3 mL auto-injector 0.3 mg IM ONCE Qty: 2 0RF Rx Instructions: as a single dose sertraline 100 mg tablet 200 mg PO DAILY Qty: 180 3RF Rx Instructions: dose increase 06/02/23 acetaminophen [Tylenol Extra Strength] 500 mg tablet 1,000 mg PO TID PRN (Reason: pain/fever) Qty: 270 4RF risperidone 2 mg tablet 2 mg PO BID Qty: 180 3RF clonazepam 1 mg tablet 1 mg PO BID PRN (Reason: anxiety) Qty: 60 5RF hydrocortisone 2.5 % cream with perineal applicator 1 applic MT QD-BID PRN (Reason: hemorrhoids) 5 Days Qty: 30 2RF docusate sodium [Col-Rite] 100 mg capsule 100 mg PO DAILY Qty: 5 0RF Discharge Instructions Additional Instructions: Your workup today was very reassuring. I recommend that you call your primary care provider to schedule follow-up appointment. I have also placed a referral to podiatry for you to have the rash on your feet further evaluated. HPI General Date/Time Provider Initiated Documentation: 02/20/25 21:28. HPI Narrative: Golden is a 39-year-old male who presents to the emergency department today for evaluation of brown rash on heels of bilateral feet. He reports that these have been ongoing for couple of days, not associated distal numbness/tingling, difficulty ambulating, other rashes, fever/chills, chest pain, shortness of breath, dizziness, nausea/vomiting, nosebleeds, gum bleeding, blood in stool. He says that these are sore to palpation. No prior similar spots or injury. Denies recent footwear changes. Uncertain about increased walking. PMH significant for [place] disease, thyroid dysfunction, GERD with esophagitis, anxiety, cognitive impairment. Related Data Home Medications ?Medication ?Instructions ?Recorded ?Confirmed pantoprazole 40 mg tablet,delayed 40 mg PO BID #180 tabs 01/25/24 02/20/25 release apixaban 5 mg tablet 5 mg PO BID pulmonary embolism 04/13/24 02/20/25 #180 tabs epinephrine 0.3 mg/0.3 mL 0.3 mg (0.3 mL) IM ONCE #2 ea 06/09/24 02/20/25 injection, auto-injector (EpiPen 2-Farrukh) sertraline 100 mg tablet 200 mg (2 x 100 mg) PO DAILY #180 09/18/24 02/20/25 tabs acetaminophen 500 mg tablet 1,000 mg (2 x 500 mg) PO TID PRN 11/08/24 02/20/25 (Tylenol Extra Strength) pain/fever #270 tabs risperidone 2 mg tablet 2 mg PO BID #180 tabs 12/27/24 02/20/25 docusate sodium 100 mg capsule 100 mg PO DAILY #5 caps 02/10/25 02/20/25 (Col-Rite) clonazepam 1 mg tablet 1 mg PO BID PRN anxiety #60 tabs 02/12/25 02/20/25 hydrocortisone 2.5 % topical cream 1 applic MT QD-BID PRN hemorrhoids 02/14/25 02/20/25 with perineal applicator 5 days #30 grams Previous Rx's ?Medication ?Instructions ?Recorded pantoprazole 40 mg tablet,delayed 40 mg PO BID #180 tabs 01/25/24 release apixaban 5 mg tablet 5 mg PO BID pulmonary embolism 04/13/24 #180 tabs epinephrine 0.3 mg/0.3 mL 0.3 mg (0.3 mL) IM ONCE #2 ea 06/09/24 injection, auto-injector (EpiPen 2-Farrukh) sertraline 100 mg tablet 200 mg (2 x 100 mg) PO DAILY #180 09/18/24 tabs acetaminophen 500 mg tablet 1,000 mg (2 x 500 mg) PO TID PRN 11/08/24 (Tylenol Extra Strength) pain/fever #270 tabs risperidone 2 mg tablet 2 mg PO BID #180 tabs 12/27/24 docusate sodium 100 mg capsule 100 mg PO DAILY #5 caps 02/10/25 (Col-Rite) clonazepam 1 mg tablet 1 mg PO BID PRN anxiety #60 tabs 02/12/25 hydrocortisone 2.5 % topical cream 1 applic MT QD-BID PRN hemorrhoids 02/14/25 with perineal applicator 5 days #30 grams Allergies Allergy/AdvReac Type Severity Reaction Status Date / Time cat's claw Allergy Unknown Skin Rash Verified 02/20/25 21:41 neomycin (From Neosporin Allergy Unknown Skin Rash Verified 02/20/25 21:41 ([id number])) polymyxin B (From Neosporin Allergy Unknown Skin Rash Verified 02/20/25 21:41 ([id number])) bacitracin Allergy Skin Rash Verified 02/20/25 21:41 dog dander Allergy Skin Rash Verified 02/20/25 21:41 General Stated Complaint: RashLesion CONSTANCE: 4 Exam Const General: cooperative, healthy appearing and anxious Nutritional Appearance: average body habitus Orientation: alert and oriented x3 Resp Effort & Inspection: normal respiratory effort and able to speak in complete sentences Cardio Pulses: dorsalis pedis present Skin Lesions: lesion noted (flat brown macules noted on heels) Extrem General: normal to inspection, full ROM, capillary refill normal and normal gait Course Vital Signs Vital signs: Vital Signs Temperature 37.2 C 02/20/25 21:35 Pulse 60 02/20/25 21:35 Blood Pressure 133/73 02/20/25 21:35 Pulse Oximetry 95 02/20/25 21:35 Temperature 37.2 C 02/20/25 21:35 Temperature Source Oral 02/20/25 21:35 Pulse 60 02/20/25 21:35 Blood Pressure 133/73 02/20/25 21:35 Pulse Oximetry 95 02/20/25 21:35 Oxygen Delivery Method Room Air 02/20/25 21:35 Oxygen Flow Rate 0 02/20/25 21:35 Medical Decision Making Initial Assessment: Brown spots on heels that are tender to palpation, no injury or systemic symptoms. Differential Diagnosis includes but is not limited to: Bruising, diabetic dermopathy, venous stasis/hemosiderin staining, postinflammatory hyperpigmentation, fungal infection, pressure/calluses. No red flags concerning for infectious or ischemic process ED Course: - Blood draw for counts and platelets. - X-ray of foot. I independently interpreted the following tests: Left foot x-ray, no acute abnormalities noted. CBC reassuring, thrombocytosis unchanged from baseline. CMP also unremarkable, no change in baseline hyperbilirubinemia. Final Assessment: Overall reassuring workup, no obvious etiology of discoloration. Referral made to cap maker. Clinical Impression: Discoloration on foot, unclear etiology. Disposition: Discharge home. Reviewed discharge instructions with patient, including follow-up with cap maker and primary care. Patient Education: Explained possible bruising and foot health. Referral to cap maker. Patient consented to the use of [facility] Imaging Data Radiologic Study: Radiologist's impression: PROCEDURE INFORMATION: Exam: XR Left Foot Exam date and time: 02/20/2025 10:18 PM Age: 39 years old Clinical indication: Pain; Foot; Left; Additional info: L heel pain TECHNIQUE: Imaging protocol: Radiologic exam of the left foot. Views: 3 or more views. COMPARISON: No relevant prior studies available. FINDINGS: Bones/joints: Normal. Soft tissues: Normal. 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 Hyperbilirubinemia Essential hypertension DVT of axillary vein, acute bilateral (~02/2019) [facility] [place] Pulmonary embolism, bilateral (~02/2019) [facility] PE Dr. Flores [facility] 08/2019; RECURRENT Tricuspid regurgitation 02/28/19 [facility] ECHO; MILD TO MOD PAH (pulmonary artery hypertension) 02/28/19 [facility] ECHO (MILD) Esophagitis determined by endoscopy (~05/2018) Esophageal foreign body (~05/2018) Bipolar disorder Surgical History S/P cholecystectomy 04/29/23 [facility] Surgical/Oncology. -hb H/O superior vena cava filter placement Abnormal findings on esophagogastroduodenoscopy (EGD) S/P partial thyroidectomy S/P IVC filter (~08/2019) [facility] Priapism (~08/2019) 09/11/19 [facility] [place]; S/P PENILE SHUNT (AL-[facility]ORAB) H/O hernia repair Unspecified site, repaired x3 History of splenectomy Social History Smoking/Tobacco Use Status: Never Smoking risk assessment performed?: Yes Alcohol Intake: never Drug use: Never Substance use type: does not use Counseling given: No Housing: house Current gender identity: male Do you feel safe at home: Yes Do you feel safe in your relationship?: Yes
[2025-02-20 22:11] LABS: HCT 42.8 % (40.0-50.0); HGB 14.6 g/dL (13.5-17.5); MCH 31.2 pg (27.0-33.0); MCHC 34.1 % (32.0-36.0); MCV 92 fL (80-95); MPV 9.3 fL (8.0-11.0); RBC 4.68 10^6/uL (4.36-5.78); RDW 13.6 % (11.8-14.1); RDW-SD 45.6 fL; WBC 10.44 10^3/uL (4.4-10.8)
[2025-02-20 22:26] LABS: ALT 50 U/L (16-63); AST 51 U/L (15-37); Albumin 4.0 g/dL (3.4-5.0); Alkaline Phosphatase 80 U/L (46-116); Anion Gap 6.5 mmol/L (3-11); BUN 32 mg/dL (7-18); Bilirubin, Total 1.4 mg/dL (0.2-1.0); CO2 30.5 mmol/L (21.0-32.0); Calcium 9.0 mg/dL (8.5-10.1); Chloride 102 mmol/L (98-107); Estimated GFR 110.73 (mL/min/1.73m2); Glucose 96 mg/dL (74-106); Potassium 3.7 mmol/L (3.5-5.1); Sodium 139 mmol/L (136-145); Total Protein 7.4 g/dL (6.4-8.2)
[2025-02-20 22:30] LABS: Abs Immature Grans 0.00 10^3/uL (0.0-0.06); Immature Grans % 0.0 %; Platelet Count 446 10^3/uL (130-400); Poikilocytes 1+
--- NOTE | 2025-02-20 22:31 | DI.VRAD_ITS ---
PROCEDURE INFORMATION: Exam: XR Left Foot Exam date and time: 02/20/2025 10:18 PM Age: 39 years old Clinical indication: Pain; Foot; Left; Additional info: L heel pain TECHNIQUE: Imaging protocol: Radiologic exam of the left foot. Views: 3 or more views. COMPARISON: No relevant prior studies available. FINDINGS: Bones/joints: Normal. Soft tissues: Normal. IMPRESSION: No acute findings. Dictated and Authenticated by: Oni Schultz MD. Orderin Vanna Miguel MD
[2025-02-20 22:38] VITALS: BP 136/74; PULSE 88; RESP 18; TEMP 36.8; O2SAT 97
== END 2025-02-20 22:39 | disposition home or self-care (01) ==
PROVIDERS: Emergency Provider Nurse Practitioner Family; PCP Family Medicine
DX: L81.9 Disorder of pigmentation, unspecified (principal)
CPT/HCPCS: 80053; 99284; 73630; 85025; 99283

== ENCOUNTER → 2025-03-02 10:24 | Outpatient (BNVA) | payer MEDICARE, MEDICAID, SELFPAY | PROVIDERS: PCP Family Medicine; Referring Provider Family Medicine; Visit Provider Surgery | DX: K64.5 Perianal venous thrombosis (principal); R76.0 Raised antibody titer; F41.9 Anxiety disorder, unspecified; Z79.01 Long term (current) use of anticoagulants | CPT/HCPCS: 99215 ==

== ENCOUNTER → 2025-03-07 09:23 | Outpatient (BNVA) | payer MEDICARE, MEDICAID, SELFPAY | PROVIDERS: PCP Family Medicine; Referring Provider Family Medicine; Visit Provider Podiatrist | DX: M72.2 Plantar fascial fibromatosis (principal); M67.01 Short Achilles tendon (acquired), right ankle; M67.02 Short Achilles tendon (acquired), left ankle; L84 Corns and callosities; S90.821A Blister (nonthermal), right foot, initial encounter; S90.822A Blister (nonthermal), left foot, initial encounter; X58.XXXA Exposure to other specified factors, initial encounter; Y93.01 Activity, walking, marching and hiking; M76.62 Achilles tendinitis, left leg; M76.61 Achilles tendinitis, right leg | CPT/HCPCS: 99213 ==

== ENCOUNTER → 2025-04-04 10:39 | Outpatient (BNVA) | payer MEDICARE, MEDICAID, SELFPAY | PROVIDERS: PCP Family Medicine; Referring Provider Family Medicine; Visit Provider Podiatrist | DX: M72.2 Plantar fascial fibromatosis (principal); M67.01 Short Achilles tendon (acquired), right ankle; M67.02 Short Achilles tendon (acquired), left ankle; S90.821A Blister (nonthermal), right foot, initial encounter; S90.822A Blister (nonthermal), left foot, initial encounter; X58.XXXA Exposure to other specified factors, initial encounter; L84 Corns and callosities; B35.3 Tinea pedis | CPT/HCPCS: 99213 ==

== ENCOUNTER → 2025-05-15 08:28 | Outpatient (BNVA) | payer MEDICARE, MEDICAID, SELFPAY | PROVIDERS: PCP Family Medicine; Referring Provider Family Medicine; Visit Provider Podiatrist | DX: M72.2 Plantar fascial fibromatosis (principal); M67.01 Short Achilles tendon (acquired), right ankle; M67.02 Short Achilles tendon (acquired), left ankle; L84 Corns and callosities; B35.3 Tinea pedis; S90.821A Blister (nonthermal), right foot, initial encounter; S90.822A Blister (nonthermal), left foot, initial encounter; X58.XXXA Exposure to other specified factors, initial encounter | CPT/HCPCS: 99213 ==

== ENCOUNTER 2025-06-09 08:10 | Emergency (ER) | payer MEDICARE, MEDICAID, SELFPAY ==
[2025-06-09 08:14] VITALS: BP 139/54; PULSE 61; RESP 16; TEMP 36.3; O2SAT 99
--- NOTE | 2025-06-09 08:30 | DI.RAD_ITS ---
Exam(s) XR FOOT LT COMPLETE EXAM: XR FOOT LT COMPLETE CLINICAL HISTORY: pain medial foot. TECHNIQUE: 2D digital imaging was performed. Three views. Weightbearing. COMPARISON: CR,XR XR FOOT LT COMPLETE from 02/20/2025 FINDINGS: BONES: No acute fracture is present. No bony destructive lesion is seen. Small heel spurs. JOINTS: No dislocation present. SOFT TISSUE: Normal. IMPRESSION: Unremarkable radiographs of the left foot. The preliminary [facility] report was reviewed. DATA REPOSITORY: RADIATION DOSE DELIVERED:
--- NOTE | 2025-06-09 08:35 | W.ED.GENAD ---
Discharge Plan Disposition Patient Disposition: Home Condition: Stable Discharge Details Clinical Impression: Foot pain, left Primary Care Provider: José Miguel Flores ED Provider: Dewayne Felix Home Meds and New Rx's Prescriptions: Continued ketoconazole 2 % cream 1 applic topical DAILY Qty: 120 6RF Rx Instructions: Apply to 1g to skin and toenails once daily epinephrine [EpiPen 2-Farrukh] 0.3 mg/0.3 mL auto-injector 0.3 mg IM ONCE Qty: 2 0RF Rx Instructions: as a single dose sertraline 100 mg tablet 200 mg PO DAILY Qty: 180 3RF Rx Instructions: dose increase 06/02/23 acetaminophen [Tylenol Extra Strength] 500 mg tablet 1,000 mg PO TID PRN (Reason: pain/fever) Qty: 270 4RF risperidone 2 mg tablet 2 mg PO BID Qty: 180 3RF hydrocortisone 2.5 % cream with perineal applicator 1 applic CO QD-BID PRN (Reason: hemorrhoids) 5 Days Qty: 30 2RF hydrocortisone 2.5 % cream with perineal applicator 1 applic CO QD-BID PRN (Reason: hemorrhoids) 5 Days Qty: 30 2RF clonazepam 1 mg tablet 1 mg PO BID PRN (Reason: anxiety) Qty: 60 2RF apixaban 5 mg tablet 5 mg PO BID Qty: 180 3RF pantoprazole 40 mg tablet,delayed release (DR/EC) 40 mg PO BID Qty: 180 3RF docusate sodium [Col-Rite] 100 mg capsule 100 mg PO DAILY Qty: 5 0RF Discharge Instructions Additional Instructions: Your x-ray did not show any concerning findings at this time. You can take 1000 mg of acetaminophen every 6 hours if needed. You can also use topical diclofenac. follow-up with your primary care provider or podiatry if pain is not improving in 1 to 2 weeks. If you feel more ill or have new symptoms such as severe worsening pain or high fevers return to the emergency department for reevaluation. Stand Alone Forms: Portal Information HPI General Mode of arrival: ambulatory. Date/Time Provider Initiated Documentation: 06/09/25 08:18. Limitations to Documentation: no limitations. Information obtained by: patient. History of Present Illness 39 year old M presents to the emergency department with the chief complaint of medial foot pain, described as moderate, Quality is described as aching, Patient started experiencing this day(s) (2) and it has been constant. Rest improves symptom(s), Movement worsens symptoms . Patient notes no other symptoms.. Related Data Home Medications ?Medication ?Instructions ?Recorded ?Confirmed epinephrine 0.3 mg/0.3 mL 0.3 mg (0.3 mL) IM ONCE #2 ea 06/09/24 06/09/25 injection, auto-injector (EpiPen 2-Farrukh) sertraline 100 mg tablet 200 mg (2 x 100 mg) PO DAILY #180 09/18/24 06/09/25 tabs acetaminophen 500 mg tablet 1,000 mg (2 x 500 mg) PO TID PRN 11/08/24 06/09/25 (Tylenol Extra Strength) pain/fever #270 tabs risperidone 2 mg tablet 2 mg PO BID #180 tabs 12/27/24 06/09/25 docusate sodium 100 mg capsule 100 mg PO DAILY #5 caps 02/10/25 06/09/25 (Col-Rite) hydrocortisone 2.5 % topical cream 1 applic CO QD-BID PRN hemorrhoids 02/14/25 06/09/25 with perineal applicator 5 days #30 grams hydrocortisone 2.5 % topical cream 1 applic CO QD-BID PRN hemorrhoids 03/05/25 06/09/25 with perineal applicator 5 days #30 grams ketoconazole 2 % topical cream 1 applic topical DAILY #120 grams 04/04/25 06/09/25 apixaban 5 mg tablet 5 mg PO BID pulmonary embolism 04/17/25 06/09/25 #180 tabs clonazepam 1 mg tablet 1 mg PO BID PRN anxiety #60 tabs 04/17/25 06/09/25 pantoprazole 40 mg tablet,delayed 40 mg PO BID #180 tabs 04/17/25 06/09/25 release Previous Rx's ?Medication ?Instructions ?Recorded epinephrine 0.3 mg/0.3 mL 0.3 mg (0.3 mL) IM ONCE #2 ea 06/09/24 injection, auto-injector (EpiPen 2-Farrukh) sertraline 100 mg tablet 200 mg (2 x 100 mg) PO DAILY #180 09/18/24 tabs acetaminophen 500 mg tablet 1,000 mg (2 x 500 mg) PO TID PRN 11/08/24 (Tylenol Extra Strength) pain/fever #270 tabs risperidone 2 mg tablet 2 mg PO BID #180 tabs 12/27/24 docusate sodium 100 mg capsule 100 mg PO DAILY #5 caps 02/10/25 (Col-Rite) hydrocortisone 2.5 % topical cream 1 applic CO QD-BID PRN hemorrhoids 02/14/25 with perineal applicator 5 days #30 grams hydrocortisone 2.5 % topical cream 1 applic CO QD-BID PRN hemorrhoids 03/05/25 with perineal applicator 5 days #30 grams ketoconazole 2 % topical cream 1 applic topical DAILY #120 grams 04/04/25 apixaban 5 mg tablet 5 mg PO BID pulmonary embolism 04/17/25 #180 tabs clonazepam 1 mg tablet 1 mg PO BID PRN anxiety #60 tabs 04/17/25 pantoprazole 40 mg tablet,delayed 40 mg PO BID #180 tabs 04/17/25 release Allergies Allergy/AdvReac Type Severity Reaction Status Date / Time cat's claw Allergy Unknown Skin Rash Verified 06/09/25 08:17 neomycin (From Neosporin Allergy Unknown Skin Rash Verified 06/09/25 08:17 ([id number])) polymyxin B (From Neosporin Allergy Unknown Skin Rash Verified 06/09/25 08:17 ([id number])) bacitracin Allergy Skin Rash Verified 06/09/25 08:17 dog dander Allergy Skin Rash Verified 06/09/25 08:17 General Stated Complaint: Orthopedic CONSTANCE: 4 Review of Systems All systems reviewed & are unremarkable except as noted in HPI and below Constitutional Constitutional: Denies chills, Denies fever(s) and Denies weakness Cardiovascular Cardiovascular: Denies chest pain and Denies dyspnea Respiratory Respiratory: Denies cough and Denies dyspnea Gastrointestinal Gastrointestinal: Denies vomiting Musculoskeletal Musculoskeletal: Reports arthralgias (foot pain) Neurologic Neurologic: Denies weakness Exam Const General: no acute distress Orientation: alert [facility] Head: normal to inspection Ears: external ears normal General nose exam: external nose normal Mouth: moist mucous membranes Eyes General: appearance normal, both eyes and all related structures Neck Neck: normal visual inspection Resp Effort & Inspection: normal respiratory effort and able to speak in complete sentences Cardio Rate: regular rate Skin General skin exam: no rashes or lesions noted Neuro General: patient alert and patient oriented x3 Extrem General: normal to inspection, full ROM and capillary refill normal Psych Mental Status: mental status grossly normal Course Vital Signs Vital signs: Vital Signs Temperature 36.3 C L 06/09/25 08:14 Pulse 61 06/09/25 08:14 Respiratory Rate 16 06/09/25 08:14 Blood Pressure 139/54 L 06/09/25 08:14 Pulse Oximetry 99 06/09/25 08:14 Temperature 36.3 C L 06/09/25 08:14 Pulse 61 06/09/25 08:14 Respiratory Rate 16 06/09/25 08:14 Blood Pressure 139/54 L 06/09/25 08:14 Pulse Oximetry 99 06/09/25 08:14 Medical Decision Making 39-year-old male with a history of bilateral plantar fasciitis seeing podiatry comes in with new medial left foot pain. Denies any falls or trauma. He has tenderness to the medial midfoot, there is no visible or palpable deformities, he has full range of motion of his ankle and toes. Intact sensation and pulses. There is no swelling or discoloration of the foot. Intact 2+ DP and PT pulses. No calf tenderness. I suspect sprain versus strain, will obtain x-rays to evaluate for possible fracture so this is unlikely given the lack of trauma. No swelling or calf tenderness to suggest DVT. Patient has no erythema or warmth and no other symptoms to suggest infectious etiologies. Patient stable, ambulating with a normal gait. X-ray negative. Suspect sprain versus compensatory injury as he has had issues with both feet recently with plantar fasciitis, he will follow-up with either podiatry or his PCP if not improving and return precautions given. Differential Diagnosis Differential Diagnosis: plantar fasciitis, sprain,strain Quality:SDOH Health Related Social Needs: Health related social needs transpo insecurity lonely/isolated PFSH All Active Problems (Updated 06/09/25 @ 08:59 by Dewayne Felix MD) Foot pain, left (Acute) Tinea pedis (Acute) Blister (nonthermal), left foot, initial encounter (Acute) Blister (nonthermal), right foot, initial encounter (Acute) Bruising (Acute) Corns and callosities (Acute) Achilles tendon contracture, bilateral (Acute) Plantar fasciitis (Acute) Internal thrombosed hemorrhoids (Acute) Cognitive impairment (Acute) Sleep disorder (Acute) Hemorrhoids (Acute) Lymphocytosis (Acute) w/ smudge cells on diff Paresthesia and pain of left extremity (Acute) Coccyx disorder (Acute) [place] disease (Acute) Thyroid dysfunction (Acute) 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 Hyperbilirubinemia Essential hypertension DVT of axillary vein, acute bilateral (~02/2019) [facility] [place] [facility] Pulmonary embolism, bilateral (~02/2019) [facility] [place] PE Dr. Flores [facility] [place] [facility] 08/2019; RECURRENT Tricuspid regurgitation 02/28/19 [facility] [facility] ECHO; MILD TO MOD PAH (pulmonary artery hypertension) 02/28/19 [facility] [place] [facility] ECHO (MILD) Esophagitis determined by endoscopy (~05/2018) Esophageal foreign body (~05/2018) Bipolar disorder Surgical History S/P cholecystectomy 04/29/23 [facility] Surgical/Oncology. -hb H/O superior vena cava filter placement Abnormal findings on esophagogastroduodenoscopy (EGD) S/P partial thyroidectomy S/P IVC filter (~08/2019) [facility] [place] [facility] Priapism (~08/2019) 09/11/19 [facility] [place] [facility]; S/P PENILE SHUNT (AL-[facility]AB) H/O hernia repair Unspecified site, repaired x3 History of splenectomy Social History Smoking/Tobacco Use Status: Never Smoking risk assessment performed?: Yes Alcohol Intake: never Drug use: Never Substance use type: does not use Counseling given: No Housing: house Current gender identity: male Do you feel safe at home: Yes Do you feel safe in your relationship?: Yes
--- NOTE | 2025-06-09 09:36 | DI.VRAD_ITS ---
PROCEDURE INFORMATION: Exam: XR Left Foot Exam date and time: 06/09/2025 9:14 AM Age: 39 years old Clinical indication: Pain; Foot; Left TECHNIQUE: Imaging protocol: Radiologic exam of the left foot. Views: 3 or more views. COMPARISON: CR XR FOOT LT COMPLETE 02/20/2025 10:18 PM FINDINGS: Bones/joints: There is no evidence of acute fracture.There is no evidence of malalignment or dislocation. Soft tissues: Normal. IMPRESSION: There is no evidence of acute fracture.There is no evidence of malalignment or dislocation. Dictated and Authenticated by: Mukesh Harley MD. Orderin Elvira Buchanan MD
[2025-06-09] MEDS: Diclofenac 1% Gel 100 GM TUBE TP (10:20)
== END 2025-06-09 10:23 | disposition home or self-care (01) ==
PROVIDERS: Emergency Provider Emergency Medicine; PCP Family Medicine
DX: M79.672 Pain in left foot (principal); Z59.82 Transportation insecurity; Z60.8 Other problems related to social environment
CPT/HCPCS: 99283 ×2; 73630

== ENCOUNTER → 2025-06-12 08:30 | Outpatient (BNVA) | payer MEDICARE, MEDICAID, SELFPAY | PROVIDERS: PCP Family Medicine; Referring Provider Family Medicine; Visit Provider Podiatrist | DX: M79.672 Pain in left foot (principal); M72.2 Plantar fascial fibromatosis; M76.822 Posterior tibial tendinitis, left leg; M67.01 Short Achilles tendon (acquired), right ankle; M67.02 Short Achilles tendon (acquired), left ankle; L84 Corns and callosities; B35.3 Tinea pedis; S90.821A Blister (nonthermal), right foot, initial encounter; S90.822A Blister (nonthermal), left foot, initial encounter; X58.XXXA Exposure to other specified factors, initial encounter | CPT/HCPCS: 99213 ==